=== PATIENT | female | born 1950 | race Caucasian/White ===

== ENCOUNTER 2016-12-24 20:53 | Emergency (ER) | payer MEDICARE, MEDICAID ==
[~2016-12-24] VITALS: Ht 162.6 cm; Wt 49.9 kg
[~2016-12-24 20:53] MED LIST: ATORVASTATIN CA10 MG ORAL; BENZTROPINE MESY1 MG PO; POTASSIUM CHLO20 ME3 PO; PROTONIX40 MG ORAL; VITAMIN C500 M1 ORAL; VITAMIN D400 INTLU ORAL
--- NOTE | 2016-12-24 21:15 | Emergency Room Report ---
History of Present Illness General Chief Complaint: Malfunctioning Gastric Tube Source: Medical Record, EMS Present Illness HPI Is a 66-year-old patient from detention with dementia. She has a feeding tube in that she pulled out. Onset today. A 14 Fijian Gallardo was placed to keep the stoma open. No other complaint. Denies any fever chills no nausea no vomiting. History is limited because of her dementia. Allergies: Coded Allergies: ERYTHROMYCIN BASE (Verified Allergy, Unknown, 11/12/16) Patient History Past Medical History: see triage record, old chart reviewed Past Surgical History: other Pertinent Family History: none Social History: Denies: smoking Last Menstrual Period: UKN Now: No Immunizations: other Reviewed Nursing Documentation: PMH: Agreed, PSxH: Agreed Nursing Documentation-PMH Past Medical History: No History, Except For Hx Cardiac Problems: Yes - Atherosclerotic heart disease, Anemia Hx Hypertension: Yes Hx COPD: Yes - Resp. failure Hx Diabetes: Yes - Type 2 Hx Cancer: No Hx Gastrointestinal Problems: No - Dysphagia, GERD Hx Neurological Problems: Yes - Generalized muscle weakness, Epilepsy Hx Epilepsy: Yes Review of Systems Eye: Denies: blurred vision, eye pain ENT: Denies: ear pain, nose congestion, throat swelling Respiratory: Denies: cough, shortness of breath Cardiovascular: Denies: chest pain, palpitations Gastrointestinal: Denies: abdominal pain, diarrhea, nausea, vomiting Musculoskeletal: Denies: back pain, joint pain Skin: Denies: rash Neurological: Denies: headache, numbness Endocrine: Denies: increased thirst, increased urine Hematologic/Lymphatic: Denies: easy bruising All Other Systems: negative except mentioned in HPI Physical Exam Vital Signs Date Time Temp Pulse Resp B/P Pulse Ox O2 Delivery O2 Flow Rate FiO2 12/24/16 20:56 97.3 68 14 100/57 98 Room Air vitals normal Sp02 EP Interpretation: reviewed, normal General Appearance: no apparent distress, alert, Chronically Ill Head: normocephalic, atraumatic Eyes: bilateral eye EOMI, bilateral eye PERRL ENT: hearing grossly normal, normal pharynx Neck: full range of motion, supple, no meningismus Respiratory: chest non-tender, lungs clear, normal breath sounds Cardiovascular #1: regular rate, rhythm, no murmur Gastrointestinal: normal bowel sounds, non tender, no mass, no organomegaly, no bruit, non-distended, other - Area around G-tube site show irritation. Musculoskeletal: back normal, normal range of motion Neurologic: alert Psychiatric: mood/affect normal Skin: warm/dry Procedures Additional Procedure Procedure Narrative Procedure: G-tube placement Indication: Dislodgment of G-tube Description: Under sterile condition, I placed an 18 Fijian G-tube without any difficulty. Was inflated. There was too feeding coming out already. It was secured and KUB ordered. Patient tolerated procedure without a problem. Medical Decision Making Diagnostic Impression: Primary Impression: Status post gastrostomy tube placement, follow-up exam Additional Impression: Malfunction of gastrostomy tube ER Course Patient here for G-tube placement. New tube placed without difficulty. No extravasation. We'll discharge home. Other X-Ray Diagnostic Results X-Ray ordered: KUB # of Views/Limited Vs Complete: 1 View Interpretation: no fractures, no dislocation, no soft tissue swelling Indication: Other - G-tube placement Impression: Other - No extravasation. G-tube in good position. Date Electronically Signed: Dec 24, 2016 Time Electronically Signed: 21:14 Interpreting ER Physician: Ciro Burnham MD Last Vital Signs Date Time Temp Pulse Resp B/P Pulse Ox O2 Delivery O2 Flow Rate FiO2 12/24/16 20:56 97.3 68 14 100/57 98 Room Air Status: improved Disposition: XFER SNF Condition: Stable Patient Instructions: Gastrostomy Tube Home Guide, Adult Additional Instructions: followup with your doctor as needed. Return for any concern. CIRO BURNHAM M.D. Dec 24, 2016 21:15
[2016-12-24 21:41] VITALS: BP 122/68
--- NOTE | 2016-12-25 10:07 | Diagnostic Imaging Report ---
Indication: Status post gastrostomy replacement Technique: Supine abdomen following injection of water-soluble contrast via the gastrostomy tube. Comparison: None Findings: There is opacification of the stomach confirming intraluminal positioning of the gastrostomy. No gross extravasation is identified. Impression: Opacification of the stomach confirming intraluminal positioning of the gastrostomy.
== END 2016-12-24 21:44 ==
LOC: EDUNIT# 20:53 → EDBD 20:53 → EMR 21:11
DX: Z43.1 Encounter for attention to gastrostomy (principal); F03.90 Unspecified dementia, unspecified severity, without behavioral disturbance, psychotic disturbance, mood disturbance, and anxiety; I10 Essential (primary) hypertension; E11.9 Type 2 diabetes mellitus without complications; K21.9 Gastro-esophageal reflux disease without esophagitis; G40.909 Epilepsy, unspecified, not intractable, without status epilepticus; I25.10 Atherosclerotic heart disease of native coronary artery without angina pectoris
CPT/HCPCS: 43760; 74000; 99284; Q9963

== ENCOUNTER 2016-12-26 15:31 | Emergency (ER) | payer MEDICARE, MEDICAID ==
[~2016-12-26] VITALS: Ht 162.6 cm; Wt 49.9 kg
--- NOTE | 2016-12-26 15:45 | Emergency Room Report ---
History of Present Illness General Chief Complaint: Malfunctioning Gastric Tube Source: Medical Record, EMS Present Illness HPI This [facility]. The patient presents with dislodgment of G-tube. She presents for replacement of G-tube. There are no other complaints Allergies: Coded Allergies: ERYTHROMYCIN BASE (Verified Allergy, Unknown, 11/12/16) Patient History Past Medical History: see triage record, DM, HTN, PA, CAD, COPD, CVA/TIA, dementia, psych hx Past Surgical History: other - Hx of trach/G-tube Social History: Denies: alcohol use, drug use, smoking Reviewed Nursing Documentation: PMH: Agreed, PSxH: Agreed Nursing Documentation-PMH Hx Cardiac Problems: Yes - Atherosclerotic heart disease, Anemia Hx Hypertension: Yes Hx COPD: Yes - Resp. failure Hx Diabetes: Yes - Type 2 Hx Cancer: No Hx Gastrointestinal Problems: No - Dysphagia, GERD Hx Neurological Problems: Yes - Generalized muscle weakness, Epilepsy Hx Epilepsy: Yes Review of Systems All Other Systems: negative except mentioned in HPI Physical Exam Vital Signs Date Time Temp Pulse Resp B/P Pulse Ox O2 Delivery O2 Flow Rate FiO2 12/26/16 15:35 98.1 70 18 118/76 99 Room Air Sp02 EP Interpretation: reviewed, normal General Appearance: no apparent distress, alert, GCS 15, non-toxic Head: normocephalic, atraumatic Eyes: bilateral eye PERRL, bilateral eye normal inspection ENT: hearing grossly normal, normal pharynx, no angioedema, normal voice Neck: full range of motion, supple/symm/no masses Respiratory: no respiratory distress, no retraction, no accessory muscle use, speaking full sentences Gastrointestinal: normal bowel sounds, non tender, soft, non-distended, no guarding, no rebound Rectal: deferred Musculoskeletal: normal range of motion, non-tender Neurologic: alert, responsive, motor strength/tone normal, sensory intact, speech normal Psychiatric: mood/affect normal Skin: well hydrated Medical Decision Making ER Course This patient presents for G-tube replacement. The G-tube was replaced in the typical manner without complication or incident. A KUB was obtained which showed Gastrografin consistent with appropriate placement in the stomach. The patient was returned to the prison facility. Other X-Ray Diagnostic Results X-Ray ordered: KUB w/ gastrograffin # of Views/Limited Vs Complete: 1 View Interpretation: other - Tube placement Indication: Other - G-tube replacement Impression: No acute disease - C/w w/ placment in stomach. No extravasation of contrast. Date Electronically Signed: Dec 26, 2016 Time Electronically Signed: 17:57 Interpreting ER Physician: Megan Last Vital Signs Date Time Temp Pulse Resp B/P Pulse Ox O2 Delivery O2 Flow Rate FiO2 12/26/16 15:35 98.1 70 18 118/76 99 Room Air Disposition: HOME, SELF-CARE Condition: Improved Patient Instructions: Gastrostomy Tube Home Guide, Adult ISAC ALVAREZ D.O. Dec 26, 2016 15:45
[2016-12-26 19:19] VITALS: BP 118/76
--- NOTE | 2016-12-27 10:48 | Diagnostic Imaging Report ---
Indication: Status post gastrostomy placement Technique: Supine view of the abdomen after injection of water-soluble contrast into gastrostomy Comparison: 12/24/2016 Findings: Contrast opacifies the stomach. No contrast extravasation is demonstrated. The bowel gas pattern is unremarkable. There is contrast in the colon, presumably from the previous gastrostomy injection. The balloon is now in the gastric fundus. No other significant change Impression: Satisfactory position of gastrostomy tube
== END 2016-12-26 19:25 | disposition home or self-care (01) ==
LOC: EDBD 15:31 → EMR 16:20
DX: Z43.1 Encounter for attention to gastrostomy (principal); E11.9 Type 2 diabetes mellitus without complications; I10 Essential (primary) hypertension; I25.10 Atherosclerotic heart disease of native coronary artery without angina pectoris; J44.9 Chronic obstructive pulmonary disease, unspecified; Z86.73 Personal history of transient ischemic attack (TIA), and cerebral infarction without residual deficits; F03.90 Unspecified dementia, unspecified severity, without behavioral disturbance, psychotic disturbance, mood disturbance, and anxiety
CPT/HCPCS: 43760; 74000

== ENCOUNTER 2020-06-09 17:44 | Inpatient (IN) | payer MEDICARE, MEDICAID ==
[~2020-06-09] VITALS: Ht 162.6 cm; Wt 36.7 kg
[~2020-06-09 17:44] MED LIST changes: +ATORVASTATIN CA10 MG GT; -ATORVASTATIN CA10 MG ORAL; +BENZTROPINE MESY1 MG GT; -BENZTROPINE MESY1 MG PO
[2020-06-09 18:00] VITALS: BP 118/65
[2020-06-09] MEDS ORDERED: Acetaminophen 500mg (ES) tab ORAL ONE (18:00)
[2020-06-09] MEDS ORDERED: Piperacillin/Tazobactam 3.375 GM in NS 110 ML IV ONE (18:00)
--- NOTE | 2020-06-09 18:11 | Emergency Room Report ---
History of Present Illness General Chief Complaint: Altered Level of Consciousness Source: Patient Present Illness HPI Disclaimer: Please note that this report is being documented using DRAGON technology. This can lead to erroneous entry secondary to incorrect interpretation by the dictating instrument. HPI: 69-year-old female history of CAD, CVA, dementia (normally AO x1), CHF, COPD, diabetes among others presents for evaluation of tachycardia and fever. Presents from nursing facility. 1 day of tachycardia and low-grade fevers not ed. No cough reported. Tested negative for COVID-19 by rapid test from samples taken on 05/20 as well as 05/25. Patient is G-tube dependent presumably for dysphagia. Does not have an indwelling Gallardo on arrival. Cannot obtain any information from patient due to dementia. PMH: CAD, CVA, dementia, CHF, COPD, diabetes PSH: G-tube, otherwise unable to obtain Allergies: Erythromycin found in medical chart Social Hx: Unable to obtain from patient Allergies: Coded Allergies: ERYTHROMYCIN BASE (Verified Allergy, Unknown, 11/12/16) COVID-19 Screening Contact w/high risk pt: No Experienced COVID-19 symptoms?: No COVID-19 Testing performed WIPER BLENDER: Yes - 05/29 COVID-19 Screening: Negative COVID-19 COVID-19 Testing Source: nasal Nursing Documentation-PMH Past Medical History: No History, Except For Hx Cardiac Problems: Yes - Atherosclerotic heart disease, Anemia Hx Hypertension: Yes Hx COPD: Yes - Resp. failure Hx Diabetes: Yes - Type 2 Hx Cancer: No Hx Gastrointestinal Problems: Yes Hx Neurological Problems: Yes - Generalized muscle weakness, Epilepsy Hx Epilepsy: Yes Review of Systems All Other Systems: limited - Unable to obtain from patient Physical Exam Vital Signs Date Time Temp Pulse Resp B/P (MAP) Pulse Ox O2 Delivery O2 Flow Rate FiO2 06/09/20 17:46 99.1 110 19 107/66 (80) 98 Nasal Cannula 6.0 General: Awake, moaning, disoriented and confused HEENT: NC/AT. EOMI. Cardiovascular: Tachycardic Resp: Normal work of breathing. No cough, wheezing or crackles appreciated Abdomen: Abdomen is soft, nondistended. G-tube appears in place and is clean and dry without signs of infection or trauma Skin: Wounds over the buttocks MSK: Frail appearing. No obvious deformity. Neuro: Awake but confused and disoriented. Moaning. No verbal responses otherwise Procedures Critical Care Time Critical Care Time Total critical care time: Approximately 45 minutes Due to a high probability of clinically significant, life threatening deterior ation, the patient required the highest level of preparedness to intervene emergently and I personally spent this critical care time directly and personally managing the patient. This critical care time included obtaining a history, examining the patient, pulse oximetry, ordering and reviewing studies, ordering treatments, evaluating response to treatment and updating management pl an as needed, frequent reassessment and discussion with other providers as well as arranging for ultimate disposition. This critical to care time was performed to assess and manage the high probability of life-threatening deterioration that could result in multiorgan failure. This critical care time is separate from the separately billable procedures and treating other patients. Medical Decision Making Diagnostic Impression: Primary Impression: Pneumonia Additional Impressions: Sepsis UTI (urinary tract infection) ER Course 69-year-old female presents from nursing facility for evaluation of fever and tachycardia. Concern for sepsis, pneumonia, electrolyte abnormality, dehydration, ACS among others. Patient started on broad-spectrum antibiotics and sepsis fluids at 30 cc/kg. Given Tylenol for fever. Broad labs and cultures ordered. Will require admission. Patient found to have bilateral infiltrates and was treated with Zosyn. Blood cultures are sent. White count elevated. D-dimer elevated; treated with Lovenox. Urine appears infections. Patient will be admitted to PMD, Dr. Abarca. Sepsis reevaluation: I, Dr. Camacho Barillas, reevaluated the patient Capillary refill: Less than 2 seconds MAP: 70 Heart rate: 113 Respiratory rate: 16 Initial Lactate: 5.6 Repeat Lactate: 5.2 Pressors: Not indicated at this time No signs of fluid overload Laboratory Tests Test 06/09/20 18:06 06/09/20 18:59 06/09/20 19:30 White Blood Count 21.5 K/UL (4.8-10.8) H Red Blood Count 4.88 M/UL (4.20-5.40) Hemoglobin 14.2 G/DL (12.0-16.0) Hematocrit 43.6 % (37.0-47.0) Mean Corpuscular Volume 89 FL (80-99) Mean Corpuscular Hemoglobin 29.1 PG (27.0-31.0) Mean Corpuscular Hemoglobin Concent 32.6 G/DL (32.0-36.0) Red Cell Distribution Width 14.3 % (11.6-14.8) Platelet Count 252 K/UL (150-450) Mean Platelet Volume 9.9 FL (6.5-10.1) Neutrophils (%) (Auto) 89.6 % (45.0-75.0) H Lymphocytes (%) (Auto) 5.3 % (20.0-45.0) L Monocytes (%) (Auto) 4.7 % (1.0-10.0) Eosinophils (%) (Auto) 0.0 % (0.0-3.0) Basophils (%) (Auto) 0.4 % (0.0-2.0) Prothrombin Time 12.4 SEC (9.30-11.50) H Prothrombin Time INR 1.1 (0.9-1.1) Activated Partial Thromboplast Time 28 SEC (23-33) D-Dimer 1.87 mg/L FEU (0.00-0.49) H Sodium Level 143 MMOL/L (136-145) Potassium Level 4.0 MMOL/L (3.5-5.1) Chloride Level 104 MMOL/L (98-107) Carbon Dioxide Level 29 MMOL/L (21-32) Anion Gap 10 mmol/L (5-15) Blood Urea Nitrogen 49 mg/dL (7-18) H Creatinine 1.1 MG/DL (0.55-1.30) Estimated Glomerular Filtration Rate 49.4 mL/min (>60) Glucose Level 164 MG/DL (74-106) H Lactic Acid Level 5.60 mmol/L (0.4-2.0) H Pending Calcium Level 9.0 MG/DL (8.5-10.1) Phosphorus Level 4.6 MG/DL (2.5-4.9) Magnesium Level 2.5 MG/DL (1.8-2.4) H Ferritin 505 NG/ML (8-388) H Total Bilirubin 0.4 MG/DL (0.2-1.0) Aspartate Amino Transferase (AST) 32 U/L (15-37) Alanine Aminotransferase (ALT) 55 U/L (12-78) Alkaline Phosphatase 105 U/L (46-116) Lactate Dehydrogenase 382 U/L (81-234) H Total Creatine Kinase 43 U/L (26-308) Creatine Kinase MB 0.8 NG/ML (0.0-3.6) Creatine Kinase MB Relative Index 1.8 Troponin I 0.000 ng/mL (0.000-0.056) C-Reactive Protein, Quantitative 17.7 mg/dL (0.00-0.90) H Pro-B-Type Natriuretic Peptide 967 pg/mL (0-125) H Total Protein 7.3 G/DL (6.4-8.2) Albumin 2.6 G/DL (3.4-5.0) L Globulin 4.7 g/dL Albumin/Globulin Ratio 0.6 (1.0-2.7) L Lipase 42 U/L (73-393) L Urine Color Yellow Urine Appearance Clear Urine pH 5 (4.5-8.0) Urine Specific [place] 1.020 (1.005-1.035) Urine Protein 4+ (NEGATIVE) H Urine Glucose (UA) Negative (NEGATIVE) Urine Ketones 1+ (NEGATIVE) H Urine Blood 2+ (NEGATIVE) H Urine Nitrite Negative (NEGATIVE) Urine Bilirubin Negative (NEGATIVE) Urine Urobilinogen 1 MG/DL (0.0-1.0) H Urine Leukocyte Esterase 2+ (NEGATIVE) H Urine RBC 5-10 /HPF (0 - 2) H Urine WBC 20-30 /HPF (0 - 2) H Urine Squamous Epithelial Cells Many /LPF (NONE/OCC) H Urine Bacteria Moderate /HPF (NONE) H EKG Diagnostic Results Troponin ordered: Yes When was troponin ordered?: Jun 09, 2020 EKG Time: 18:45 Rate: normal Rhythm: NSR ST Segments: no acute changes Other Impression Sinus rhythm, tachycardic rate, normal axis, normal intervals, no ST segment changes. Rhythm Strip Diag. Results Rhythm Strip Time: 18:45 EP Interpretation: yes Rate: 109 Rhythm: NSR, no PVC's, no ectopy Chest X-Ray Diagnostic Results Chest X-Ray Diagnostic Results : Chest X-Ray Ordered: Yes Indication: Shortness of Breath EP Interpretation: Yes Interpretation: no effusion, no pneumothorax, other - Bilateral consolidation consistent with pneumonia Impression: Other - Bilateral pneumonia Electronically Signed by: Electronically signed by Dr. Camacho Barillas MD Last Vital Signs Date Time Temp Pulse Resp B/P (MAP) Pulse Ox O2 Delivery O2 Flow Rate FiO2 06/09/20 17:46 99.1 110 19 107/66 (80) 98 Nasal Cannula 6.0 Disposition: ADMITTED INPATIENT Condition: Serious Camacho Barillas MD Jun 09, 2020 18:11
[2020-06-09 18:25] LABS: HEMATOCRIT 43.6 % (37.0-47.0); HEMOGLOBIN 14.2 G/DL (12.0-16.0); MEAN CORPUSCULAR VOLUME 89 FL (80-99); PLATELET COUNT 252 K/UL (150-450); RED BLOOD COUNT 4.88 M/UL (4.20-5.40); RED CELL DISTRIBUTION WIDTH 14.3 % (11.6-14.8); WHITE BLOOD COUNT 21.5 K/UL (4.8-10.8)
[2020-06-09 18:29] LABS: LYMPHOCYTES % (AUTO) 5.3 % (20.0-45.0); MONOCYTES % (AUTO) 4.7 % (1.0-10.0); NEUTROPHILS % (AUTO) 89.6 % (45.0-75.0)
[2020-06-09 18:30] LABS: BASOPHILS % (AUTO) 0.4 % (0.0-2.0)
[2020-06-09 18:32] LABS: INR 1.1 (0.9-1.1)
[2020-06-09 18:38] LABS: CREATININE 1.1 MG/DL (0.55-1.30)
[2020-06-09 18:57] LABS: ALBUMIN 2.6 G/DL (3.4-5.0); ALBUMIN/GLOBULIN RATIO 0.6 (1.0-2.7); BILIRUBIN,TOTAL 0.4 MG/DL (0.2-1.0); CKMB 0.8 NG/ML (0.0-3.6); PHOSPHORUS 4.6 MG/DL (2.5-4.9)
[2020-06-09 19:21] LABS: APPEARANCE,URINE CLEAR; BILIRUBIN, URINE NEGATIVE (NEGATIVE); GLUCOSE, URINE (UA) NEGATIVE (NEGATIVE); KETONES,URINE 1+ (NEGATIVE); LEUKOCYTE ESTERASE ,URINE 2+ (NEGATIVE); NITRITE,URINE NEGATIVE (NEGATIVE); PH,URINE 5 (4.5-8.0); PROTEIN,URINE 4+ (NEGATIVE); UROBILINOGEN,URINE 1 MG/DL (0.0-1.0)
[2020-06-09 19:22] LABS: COLOR,URINE YELLOW
[2020-06-09 20:36] VITALS: BP 93/51
[2020-06-09] MEDS ORDERED: Enoxaparin 40mg Inj SUBQ SCH (21:00)
[2020-06-09 22:33] VITALS: BP 103/59
[2020-06-09] MEDS ORDERED: ATORVASTATIN CA20 MG GT (23:19)
[2020-06-09] MEDS ORDERED: NOVOLIN R100 UNIT/1 SUBQ ×2 (23:19)
[2020-06-09] MEDS ORDERED: ABILIFY10 MG GT (23:19)
[2020-06-09] MEDS ORDERED: KEPPRA500 M4 ORAL (23:19)
[2020-06-09] MEDS ORDERED: CATAPRES0.1 MG GT (23:19)
[2020-06-10] VITALS: BP 100/49
[2020-06-10] MEDS: Piperacillin/Tazobactam 3.375 GM in NS 110 ML IVPB SCH ×3 (01:41→17:23)
[2020-06-10 04:00] VITALS: BP 116/61
[2020-06-10 06:12] LABS: HEMATOCRIT 32.9 % (37.0-47.0); HEMOGLOBIN 11.2 G/DL (12.0-16.0); MEAN CORPUSCULAR VOLUME 87 FL (80-99); PLATELET COUNT 188 K/UL (150-450); RED CELL DISTRIBUTION WIDTH 15.2 % (11.6-14.8); WHITE BLOOD COUNT 20.4 K/UL (4.8-10.8)
[2020-06-10] MEDS: NovoLOG Insulin Flexpen SUBQ SCH ×4 (06:30→21:00)
[2020-06-10 06:37] LABS: ANION GAP 8 mmol/L (5-15); BLOOD UREA NITROGEN 35 mg/dL (7-18); CALCIUM 8.8 MG/DL (8.5-10.1); CARBON DIOXIDE 27 MMOL/L (21-32); CHLORIDE 109 MMOL/L (98-107); CREATININE 0.8 MG/DL (0.55-1.30); POTASSIUM 3.6 MMOL/L (3.5-5.1); SODIUM 144 MMOL/L (136-145)
--- NOTE | 2020-06-10 07:59 | Consultation ---
History of Present Illness General Date patient seen: Jun 10, 2020 Time patient seen: 12:19 Chief Complaint: Altered Level of Consciousness Referring physician: PCP Reason for Consultation: Sepsis Present Illness HPI 69yo F who presents from SNF with tachycardia and fever. Per ED notes, tested neg for COVID by rapid test on 05/20 and 05/25. Pt has PEG, no valderrama. Dementia, non-verbal. History obtained via chart review. Allergies: Coded Allergies: ERYTHROMYCIN BASE (Verified Allergy, Unknown, 11/12/16) Medication History Scheduled Aripiprazole* (Abilify*), 5 MG GT DAILY, (Reported) Ascorbic Acid* (Vitamin C*), 500 MG ORAL DAILY, (Reported) Atorvastatin Calcium* (Lipitor*), 10 MG ORAL BEDTIME, (Reported) Atorvastatin Calcium* (Atorvastatin Calcium*), 10 MG GT BEDTIME, (Reported) Clonidine Hcl* (Catapres*), 0.1 MG GT Q8HR, (Reported) Insulin Regular, Human* (Novolin R*), 0 SUBQ .SLIDING SCALE, (Reported) Insulin Regular, Human* (Novolin R*), 0 SUBQ ACHS, (Reported) Levetiracetam (Keppra), 500 MG ORAL EVERY 12 HOURS, (Reported) Pantoprazole* (Protonix*), 40 MG ORAL DAILY, (Reported) Potassium Chloride (Potassium Chloride), 40 MEQ PO BID, (Reported) Vitamin D (Vitamin D3), 400 UNITS ORAL DAILY, (Reported) Miscellaneous Medications Benztropine Mesylate* (Benztropine Mesylate*), 1 MG PO, (Reported) Patient History Limited by: medical condition Healthcare decision maker N Resuscitation status Advanced Directive on File Review of Systems ROS Narrative Unable to assess 2/2 pt condition Physical Exam Physical Exam Narrative Gen: NAD HEENT: NCAT CV: RRR Pulm: CTAB Abd: Non-distended, +PEG Ext: No c/c/e Skin: No visible rashes Neuro: Eyes closed, not interactive Last 24 Hour Vital Signs Date Time Temp Pulse Resp B/P (MAP) Pulse Ox O2 Delivery O2 Flow Rate FiO2 06/10/20 06:00 122/66 06/10/20 04:00 85 06/10/20 04:00 98.4 85 19 116/61 (79) 98 06/10/20 00:00 83 06/10/20 00:00 97.7 87 17 100/49 (66) 100 06/09/20 23:42 Nasal Cannula 4.0 06/09/20 23:25 99.0 89 20 105/68 100 Nasal Cannula 4.0 06/09/20 22:33 99.0 89 19 103/59 100 Nasal Cannula 4.0 06/09/20 20:36 99.6 98 19 93/51 99 Nasal Cannula 4.0 06/09/20 18:47 99.6 06/09/20 18:00 127 21 Nasal Cannula 4.0 06/09/20 18:00 100.6 110 19 118/65 99 Nasal Cannula 4.0 06/09/20 17:46 99.1 110 19 107/66 (80) 98 Nasal Cannula 6.0 Intake and Output 06/09/20 06/10/20 19:00 07:00 Intake Total 110 ml 1750 ml Balance 110 ml 1750 ml Intake Free Water 150 ml IV Total 110 ml 1600 ml # Voids 3 Laboratory Tests Test 06/09/20 18:06 06/09/20 18:59 06/09/20 19:30 06/10/20 05:30 White Blood Count 21.5 K/UL (4.8-10.8) H 20.4 K/UL (4.8-10.8) H Red Blood Count 4.88 M/UL (4.20-5.40) 3.80 M/UL (4.20-5.40) L Hemoglobin 14.2 G/DL (12.0-16.0) 11.2 G/DL (12.0-16.0) L Hematocrit 43.6 % (37.0-47.0) 32.9 % (37.0-47.0) L Mean Corpuscular Volume 89 FL (80-99) 87 FL (80-99) Mean Corpuscular Hemoglobin 29.1 PG (27.0-31.0) 29.5 PG (27.0-31.0) Mean Corpuscular Hemoglobin Concent 32.6 G/DL (32.0-36.0) 34.0 G/DL (32.0-36.0) Red Cell Distribution Width 14.3 % (11.6-14.8) 15.2 % (11.6-14.8) H Platelet Count 252 K/UL (150-450) 188 K/UL (150-450) Mean Platelet Volume 9.9 FL (6.5-10.1) 10.2 FL (6.5-10.1) H Neutrophils (%) (Auto) 89.6 % (45.0-75.0) H % (45.0-75.0) Lymphocytes (%) (Auto) 5.3 % (20.0-45.0) L % (20.0-45.0) Monocytes (%) (Auto) 4.7 % (1.0-10.0) % (1.0-10.0) Eosinophils (%) (Auto) 0.0 % (0.0-3.0) % (0.0-3.0) Basophils (%) (Auto) 0.4 % (0.0-2.0) % (0.0-2.0) Prothrombin Time 12.4 SEC (9.30-11.50) H Prothromb Time International Ratio 1.1 (0.9-1.1) Activated Partial Thromboplast Time 28 SEC (23-33) D-Dimer 1.87 mg/L FEU (0.00-0.49) H Sodium Level 143 MMOL/L (136-145) 144 MMOL/L (136-145) Potassium Level 4.0 MMOL/L (3.5-5.1) 3.6 MMOL/L (3.5-5.1) Chloride Level 104 MMOL/L (98-107) 109 MMOL/L (98-107) H Carbon Dioxide Level 29 MMOL/L (21-32) 27 MMOL/L (21-32) Anion Gap 10 mmol/L (5-15) 8 mmol/L (5-15) Blood Urea Nitrogen 49 mg/dL (7-18) H 35 mg/dL (7-18) H Creatinine 1.1 MG/DL (0.55-1.30) 0.8 MG/DL (0.55-1.30) Estimat Glomerular Filtration Rate 49.4 mL/min (>60) > 60 mL/min (>60) Glucose Level 164 MG/DL (74-106) H 129 MG/DL (74-106) H Lactic Acid Level 5.60 mmol/L (0.4-2.0) H 5.20 mmol/L (0.66-2.22) H Calcium Level 9.0 MG/DL (8.5-10.1) 8.8 MG/DL (8.5-10.1) Phosphorus Level 4.6 MG/DL (2.5-4.9) Magnesium Level 2.5 MG/DL (1.8-2.4) H Ferritin 505 NG/ML (8-388) H Total Bilirubin 0.4 MG/DL (0.2-1.0) Aspartate Amino Transf (AST/SGOT) 32 U/L (15-37) Alanine Aminotransferase (ALT/SGPT) 55 U/L (12-78) Alkaline Phosphatase 105 U/L (46-116) Lactate Dehydrogenase 382 U/L (81-234) H Total Creatine Kinase 43 U/L (26-308) Creatine Kinase MB 0.8 NG/ML (0.0-3.6) Creatine Kinase MB Relative Index 1.8 Troponin I 0.000 ng/mL (0.000-0.056) C-Reactive Protein, Quantitative 17.7 mg/dL (0.00-0.90) H Pro-B-Type Natriuretic Peptide 967 pg/mL (0-125) H Total Protein 7.3 G/DL (6.4-8.2) Albumin 2.6 G/DL (3.4-5.0) L Globulin 4.7 g/dL Albumin/Globulin Ratio 0.6 (1.0-2.7) L Lipase 42 U/L (73-393) L Urine Color Yellow Urine Appearance Clear Urine pH 5 (4.5-8.0) Urine Specific [place] 1.020 (1.005-1.035) Urine Protein 4+ (NEGATIVE) H Urine Glucose (UA) Negative (NEGATIVE) Urine Ketones 1+ (NEGATIVE) H Urine Blood 2+ (NEGATIVE) H Urine Nitrite Negative (NEGATIVE) Urine Bilirubin Negative (NEGATIVE) Urine Urobilinogen 1 MG/DL (0.0-1.0) H Urine Leukocyte Esterase 2+ (NEGATIVE) H Urine RBC 5-10 /HPF (0 - 2) H Urine WBC 20-30 /HPF (0 - 2) H Urine Squamous Epithelial Cells Many /LPF (NONE/OCC) H Urine Bacteria Moderate /HPF (NONE) H Neutrophils % (Manual) Pending Lymphocytes % (Manual) Pending Platelet Estimate Pending Platelet Morphology Pending Test 06/10/20 06:34 POC Whole Blood Glucose 123 MG/DL (74-106) H Microbiology Date/Time Source Procedure Growth Status 06/09/20 19:25 Nasopharynx SARS-CoV-2 RdRp Gene Assay - Final Complete Height (Feet): 5 Height (Inches): 4.00 Weight (Pounds): 90 Medications Current Medications Medications (Trade) Dose Ordered Sig/Alvarado Route PRN Reason Start Time Stop Time Status Last Admin Dose Admin Ascorbic Acid (Vitamin C) 500 mg DAILY GT 06/10/20 09:00 07/10/20 08:59 Atorvastatin Calcium (Lipitor) 10 mg BEDTIME GT 06/10/20 21:00 09/08/20 20:59 Clonidine HCl (Catapres Tab) 0.1 mg Q8HR GT 06/10/20 06:00 09/08/20 05:59 Dextrose (Dextrose 50%) 25 ml Q30M PRN IV Hypoglycemia 06/10/20 01:15 09/08/20 01:14 Dextrose (Dextrose 50%) 50 ml Q30M PRN IV Hypoglycemia 06/10/20 01:15 09/08/20 01:14 Heparin Sodium (Porcine) (Heparin 5000 units/ml) 5,000 units EVERY 12 HOURS SUBQ 06/10/20 09:00 07/25/20 08:59 Insulin Aspart (NovoLOG) BEFORE MEALS AND HS SUBQ 06/10/20 06:30 09/08/20 06:29 Lansoprazole (Prevacid) 30 mg DAILY GT 06/10/20 09:00 07/10/20 08:59 Levetiracetam (Keppra) 500 mg EVERY 12 HOURS GT 06/10/20 09:00 07/25/20 08:59 Piperacillin Sod/ Tazobactam Sod 3.375 gm/Sodium Chloride 110 ml @ 27.5 mls/hr Q8H IVPB 06/10/20 02:00 06/17/20 01:59 06/10/20 01:41 Potassium Chloride (K-Dur) 40 meq BID GT 06/10/20 09:00 09/08/20 08:59 Sodium Chloride 1,000 ml @ 80 mls/hr [id number] IV 06/10/20 01:30 07/10/20 01:29 06/10/20 01:26 Vitamin D (Vitamin D) 400 intlu DAILY ORAL 06/10/20 09:00 07/10/20 08:59 Assessment/Plan Assessment/Plan: 69yo F with: Febrile to 100.6 Tachycardia Sepsis Leukocytosis to 21 Hypoxia on 4L NC Pneumonia R/o UTI 06/09 BCx p UA 20-30 WBC, UCx p COVID rapid Ag neg, PCR p BNP 967 CXR: Pending MRSA nares p Cr 0.8 PMH: CAD, CVA, dementia, CHF, COPD, diabetes SNF resident Plan: Cont Zosyn #2 Trend WBC F/u COVID PCR, BCx, UCx, MRSA nares Monitor CBC/CMP Monitor temp curve, hemodynamics Monitor resp status D/w RN Thank you for this consult. [facility] will continue to follow. Beth Marsh M.D. Jun 10, 2020 07:59
[2020-06-10 08:00] VITALS: BP 109/73
[2020-06-10] MEDS: levETIRAcetam 500mg/5ml Liquid GT SCH ×2 (09:45→21:03)
[2020-06-10] MEDS: Ascorbic Acid 500mg tab GT SCH (09:45)
[2020-06-10] MEDS: Heparin 5000 units/ml inj SUBQ SCH ×2 (09:46→21:03)
[2020-06-10] MEDS: Vitamin D 400 INTLU TAB ORAL SCH (09:48)
[2020-06-10 12:00] VITALS: BP 106/84
--- NOTE | 2020-06-10 13:06 | Diagnostic Imaging Report ---
Indication: Bilateral lower extremity pain Technique: Grayscale and duplex images of the bilateral lower extremity veins Comparison: None Findings: Bilaterally, grayscale and duplex images demonstrate no evidence of intraluminal thrombus. Normal phasic Doppler waveforms, demonstrating normal augmentation response and no evidence of valvular insufficiency. Greater saphenous vein(s) and tibial veins are patent. Normal compressibility. The technologist reports that the exam was technically difficult due to patient being contracted Impression: Negative for evidence of lower extremity deep venous thrombosis bilaterally
[2020-06-10 16:00] VITALS: BP 109/83
[2020-06-10] MEDS: Vancomycin 500mg/D5W 110ml IVPB SCH ×2 (17:23)
--- NOTE | 2020-06-10 18:43 | Consultation ---
History of Present Illness General Date patient seen: Jun 10, 2020 Reason for Hospitalization: Altered Level of Consciousness Present Illness HPI This is a pleasant 69-year-old female history of CAD, CVA, dementia baseline, CHF, COPD, diabetes among others presents for evaluation of tachycardia and fever from nursing facility. 1 day of tachycardia and low-grade fevers noted. No cough reported. Tested negative for COVID-19 by rapid test from samples taken on 05/20 as well as 05/25. Patient is G-tube dependent presumably for dysphagia. Does not have an indwelling Gallardo on arrival. Cannot obtain any information from patient due to dementia. noted abnormal labs, severe low bmi, decubitus. surgery called to evaluate and assist with care. PMH: CAD, CVA, dementia, CHF, COPD, diabetes PSH: G-tube, otherwise unable to obtain Allergies: Erythromycin found in medical chart Social Hx: Unable to obtain from patient Allergies: Coded Allergies: ERYTHROMYCIN BASE (Verified Allergy, Unknown, 11/12/16) COVID-19 Screening Contact w/high risk pt: No Experienced COVID-19 symptoms?: No Medication History Scheduled Aripiprazole* (Abilify*), 5 MG GT DAILY, (Reported) Ascorbic Acid* (Vitamin C*), 500 MG ORAL DAILY, (Reported) Atorvastatin Calcium* (Lipitor*), 10 MG ORAL BEDTIME, (Reported) Atorvastatin Calcium* (Atorvastatin Calcium*), 10 MG GT BEDTIME, (Reported) Clonidine Hcl* (Catapres*), 0.1 MG GT Q8HR, (Reported) Insulin Regular, Human* (Novolin R*), 0 SUBQ .SLIDING SCALE, (Reported) Insulin Regular, Human* (Novolin R*), 0 SUBQ ACHS, (Reported) Levetiracetam (Keppra), 500 MG ORAL EVERY 12 HOURS, (Reported) Pantoprazole* (Protonix*), 40 MG ORAL DAILY, (Reported) Potassium Chloride (Potassium Chloride), 40 MEQ PO BID, (Reported) Vitamin D (Vitamin D3), 400 UNITS ORAL DAILY, (Reported) Miscellaneous Medications Benztropine Mesylate* (Benztropine Mesylate*), 1 MG PO, (Reported) Patient History Limited by: age, medical condition History Provided By: Medical Record, PMD Healthcare decision maker N Resuscitation status Advanced Directive on File Past Medical/Surgical History Past Medical/Surgical History: (1) PEG (percutaneous endoscopic gastrostomy) adjustment/replacement/removal (2) UTI (urinary tract infection) (3) Pneumonia (4) Sepsis Review of Systems Review of Symptoms General ROS: no weight loss or fever Psychological ROS: no depression or mood changes, no memory loss Ophthalmic ROS: no visual changes or eye irritation ENT ROS: no nasal congestion, hearing loss, dizziness Allergy and Immunology ROS: no allergic symptoms or urticaria Hematological and Lymphatic ROS: no swollen glands, unusual bleeding or bruising Endocrine ROS: no polyuria, polydipsia, weight changes, temperature intolerance Respiratory ROS: no cough, shortness of breath, or wheezing Cardiovascular ROS: no chest pain or dyspnea on exertion Gastrointestinal ROS: denies abdominal pain, bright red blood in stool. Musculoskeletal ROS: no myalgias or arthralgias Neurological ROS: no TIA or stroke symptoms Dermatological ROS: no new or changing skin lesions, rashes or pruritis limited given mental status Physical Exam Physical Exam General appearance: no distress, appears stated age Head: Normocephalic, without obvious abnormality, atraumatic Eyes: conjunctivae/corneas clear. PERRL, EOM's intact. Fundi benign Throat: Lips, mucosa, and tongue normal. Teeth and gums normal Neck: supple, symmetrical, trachea midline, no adenopathy, thyroid: not enlarged, symmetric, no tenderness/mass/nodules, no carotid bruit and no JVD Lungs: clear to auscultation bilaterally Heart: regular rate and rhythm, S1, S2 normal, no murmur, click, rub or gallop Abdomen: soft, non-tender. Bowel sounds normal. No masses, no organomegaly +G tube Extremities: extremitie contract Pulses: 2+ and symmetric Skin: Skin see below Neurologic: Grossly normal Last 24 Hour Vital Signs Date Time Temp Pulse Resp B/P (MAP) Pulse Ox O2 Delivery O2 Flow Rate FiO2 06/10/20 16:00 99.7 93 18 109/83 (92) 96 06/10/20 14:00 106/84 06/10/20 12:00 97.4 90 19 106/84 (91) 97 06/10/20 12:00 91 06/10/20 09:00 Nasal Cannula 4.0 06/10/20 08:00 98.1 56 18 109/73 (85) 94 06/10/20 08:00 90 06/10/20 06:00 122/66 06/10/20 04:00 85 06/10/20 04:00 98.4 85 19 116/61 (79) 98 06/10/20 00:00 83 06/10/20 00:00 97.7 87 17 100/49 (66) 100 06/09/20 23:42 Nasal Cannula 4.0 06/09/20 23:25 99.0 89 20 105/68 100 Nasal Cannula 4.0 06/09/20 22:33 99.0 89 19 103/59 100 Nasal Cannula 4.0 06/09/20 20:36 99.6 98 19 93/51 99 Nasal Cannula 4.0 06/09/20 18:47 99.6 Intake and Output 06/09/20 06/10/20 19:00 07:00 Intake Total 110 ml 1750 ml Balance 110 ml 1750 ml Intake Free Water 150 ml IV Total 110 ml 1600 ml # Voids 3 Laboratory Tests Test 06/09/20 18:59 06/09/20 19:30 06/10/20 05:30 06/10/20 06:34 Urine Color Yellow Urine Appearance Clear Urine pH 5 (4.5-8.0) Urine Specific [place] 1.020 (1.005-1.035) Urine Protein 4+ (NEGATIVE) H Urine Glucose (UA) Negative (NEGATIVE) Urine Ketones 1+ (NEGATIVE) H Urine Blood 2+ (NEGATIVE) H Urine Nitrite Negative (NEGATIVE) Urine Bilirubin Negative (NEGATIVE) Urine Urobilinogen 1 MG/DL (0.0-1.0) H Urine Leukocyte Esterase 2+ (NEGATIVE) H Urine RBC 5-10 /HPF (0 - 2) H Urine WBC 20-30 /HPF (0 - 2) H Urine Squamous Epithelial Cells Many /LPF (NONE/OCC) H Urine Bacteria Moderate /HPF (NONE) H Lactic Acid Level 5.20 mmol/L (0.66-2.22) H White Blood Count 20.4 K/UL (4.8-10.8) H Red Blood Count 3.80 M/UL (4.20-5.40) L Hemoglobin 11.2 G/DL (12.0-16.0) L Hematocrit 32.9 % (37.0-47.0) L Mean Corpuscular Volume 87 FL (80-99) Mean Corpuscular Hemoglobin 29.5 PG (27.0-31.0) Mean Corpuscular Hemoglobin Concent 34.0 G/DL (32.0-36.0) Red Cell Distribution Width 15.2 % (11.6-14.8) H Platelet Count 188 K/UL (150-450) Mean Platelet Volume 10.2 FL (6.5-10.1) H Neutrophils (%) (Auto) % (45.0-75.0) Lymphocytes (%) (Auto) % (20.0-45.0) Monocytes (%) (Auto) % (1.0-10.0) Eosinophils (%) (Auto) % (0.0-3.0) Basophils (%) (Auto) % (0.0-2.0) Differential Total Cells Counted 100 Neutrophils % (Manual) 85 % (45-75) H Lymphocytes % (Manual) 9 % (20-45) L Monocytes % (Manual) 6 % (1-10) Eosinophils % (Manual) 0 % (0-3) Basophils % (Manual) 0 % (0-2) Band Neutrophils 0 % (0-8) Platelet Estimate Adequate Platelet Morphology Normal Anisocytosis 1+ Sodium Level 144 MMOL/L (136-145) Potassium Level 3.6 MMOL/L (3.5-5.1) Chloride Level 109 MMOL/L (98-107) H Carbon Dioxide Level 27 MMOL/L (21-32) Anion Gap 8 mmol/L (5-15) Blood Urea Nitrogen 35 mg/dL (7-18) H Creatinine 0.8 MG/DL (0.55-1.30) Estimat Glomerular Filtration Rate > 60 mL/min (>60) Glucose Level 129 MG/DL (74-106) H Calcium Level 8.8 MG/DL (8.5-10.1) POC Whole Blood Glucose 123 MG/DL (74-106) H Test 06/10/20 11:48 POC Whole Blood Glucose 106 MG/DL (74-106) Microbiology Date/Time Source Procedure Growth Status 06/09/20 19:25 Nasopharynx SARS-CoV-2 RdRp Gene Assay - Final Complete Height (Feet): 5 Height (Inches): 4.00 Weight (Pounds): 90 Medications Current Medications Medications (Trade) Dose Ordered Sig/Alvarado Route PRN Reason Start Time Stop Time Status Last Admin Dose Admin Ascorbic Acid (Vitamin C) 500 mg DAILY GT 06/10/20 09:00 07/10/20 08:59 06/10/20 09:45 Atorvastatin Calcium (Lipitor) 10 mg BEDTIME GT 06/10/20 21:00 09/08/20 20:59 Clonidine HCl (Catapres Tab) 0.1 mg Q8HR GT 06/10/20 06:00 09/08/20 05:59 Dextrose (Dextrose 50%) 25 ml Q30M PRN IV Hypoglycemia 06/10/20 01:15 09/08/20 01:14 Dextrose (Dextrose 50%) 50 ml Q30M PRN IV Hypoglycemia 06/10/20 01:15 09/08/20 01:14 Heparin Sodium (Porcine) (Heparin 5000 units/ml) 5,000 units EVERY 12 HOURS SUBQ 06/10/20 09:00 07/25/20 08:59 06/10/20 09:46 Insulin Aspart (NovoLOG) BEFORE MEALS AND HS SUBQ 06/10/20 06:30 09/08/20 06:29 Lansoprazole (Prevacid) 30 mg DAILY GT 06/10/20 09:00 07/10/20 08:59 06/10/20 09:45 Levetiracetam (Keppra) 500 mg EVERY 12 HOURS GT 06/10/20 09:00 07/25/20 08:59 06/10/20 09:45 Piperacillin Sod/ Tazobactam Sod 3.375 gm/Sodium Chloride 110 ml @ 27.5 mls/hr Q8H IVPB 06/10/20 02:00 06/17/20 01:59 06/10/20 17:23 Potassium Chloride (K-Dur) 40 meq BID GT 06/10/20 09:00 09/08/20 08:59 06/10/20 17:24 Sodium Chloride 1,000 ml @ 80 mls/hr [id number] IV 06/10/20 01:30 07/10/20 01:29 06/10/20 14:03 Vancomycin HCl (Vanco pharmacy to dose) 1 ea DAILY PRN MISC Per rx protocol 06/10/20 16:00 07/10/20 15:59 Vancomycin HCl 500 mg/Dextrose 110 ml @ 110 mls/hr Q24H IVPB 06/10/20 18:00 06/15/20 17:59 06/10/20 17:23 Vitamin D (Vitamin D) 400 intlu DAILY ORAL 06/10/20 09:00 07/10/20 08:59 06/10/20 09:48 Assessment/Plan Problem List: (1) Malnutrition Assessment & Plan: Needs based on underweight, DM 35.5kg 30-40 kcals/kg 3654-9170 total kcals 1.25-2 g protein/kg 44-71 g total protein 25-35ml/kcal mL/kg 888-1243 total fluid mLs NUTRITION DIAGNOSIS: Swallowing difficulty R/T dysphagia as evidenced by pt is Gtube dependent. ENTERAL NUTRITION RECOMMENDATIONS: Glucerna 1.2 @50ml x24 hrs to provide 1200ml, 1440 kcal, 72g pro, 966ml free H2O - As able rec carb control formula for h/o DM. - Start @30ml/hr for 6 hrs, advance as tolerated 10ml/hr q4-6 hrs to goal. - Flush per MD/ HOB over 30 degrees ADDITIONAL RECOMMENDATIONS: - Per SNF: 5'3" and 78lbs/35.45kg. - Check lytes daily, replete as needed - A1c for eval of glycemic control - Wound care: advanced per RN, f/up with WC RN. Add LINA BID w/ GT, Vit C 250mg BID ICD Codes: E46 - Unspecified protein-calorie malnutrition SNOMED: 14731023 (2) Decubitus skin ulcer Assessment & Plan: This is an emaciated pt whom presented on admission with Multiple Pressure Injuries. Unstageable Pressure Injury Sacrum (L)11cm x (W)10.5cm. Base of wound is 90% necrotic, surrounding 10% moist, erythematous borders. Edges adherent to base of wound. No odor or exudate noted. Unstageable Pressure Injury L trochanter(L)3.5cm x (W)5.5cm. Base of wound is 95% necrotic, 5% surrounding borders arleen. Edges adherent to base of wound. No odor or exudate noted.Periwound is pale. Non-Blanchable erythema without induration L Ischium. Non-Blanchable erythema without induration bony prominences of L Hip/L Trochanter/L Ischial tuberosity. DTPI L Heel(L)2.5cmx(W)2cm.Base of Pressure Injury is fluctuant, Maroon in colour with surrounding non-blanchable erythema. Non-Blanchable erythema without induration L Hallux (L)1cm x (W)2cm. DTPI R Heel (L)6cm x (W)8cm.Base of Pressure Injury is fluctuant and maroon in colour. Edges are adherent to base of Pressure Injury. Unstageable Pressure Injury dorsal R 1st metatarsal(L)0.8cm x (W)0.6cm.Base of wound is 100% necrotic with marginal erythema along borders . Edges adherent to base of wound.. Non-Blanchable erythema without induration distal/lateral R foot (L)1.5cm x (W)1.5cm. Non-Blanchable erythema without induration R Hallux. Tx.Plan: Cleanse Sacral wound with Saline. Apply Therahoney. Apply Moisture Barrier Paste periwound. Cover with Optifoam drsg. Change every 3 days and prn. Cleanse L Trochanteric wound with Saline.Apply Therhaoney.Apply Moisture Barrier paste Periwound. Cover with Optifoam drsg. Change every 3 days and prn. Apply Moisture Barrier Paste to R and L ischium. Cover each site with Optifoam drsg. Change every 3 days and prn. Cover R hip /R Trochanter with Optifoam drsgs. Change every 7 days and prn. Apply Cavilon Skin Barrier to R heel , R 1st metatarsal,R hallux, Distal /Lateral R foot. Cover each Pressure Injury with Optifoam drsg. Change every 7 days and prn. Apply Cavilon Skin Barrier o L Heel , L Hallux, Distal lateral L Foot . Cover each Pressure Injury with Optifoam drsg. Change every 7 days and prn. Reposition at least every 2hours or as tolerated. Off-load heels with Pillow. APM/SOLOMON Mattress Overlay. ICD Codes: L89.90 - Pressure ulcer of unspecified site, unspecified stage SNOMED: 901098325 (3) UTI (urinary tract infection) ICD Codes: N39.0 - Urinary tract infection, site not specified SNOMED: 64561454 (4) Pneumonia ICD Codes: J18.9 - Pneumonia, unspecified organism SNOMED: 273656376 (5) Sepsis Assessment & Plan: leukocytosis lactic acidosis malnutrition underweight bmi 13 micro noted on abx as per ID cont abx wounds unlikely etiology will follow with local care and evaluation to ensure thank you ICD Codes: A41.9 - Sepsis, unspecified organism SNOMED: 57956811 (6) PEG (percutaneous endoscopic gastrostomy) adjustment/replacement/removal ICD Codes: Z43.1 - Encounter for attention to gastrostomy SNOMED: 730774095, 796033198 Chao Ovalle Jun 10, 2020 18:43
--- NOTE | 2020-06-10 18:53 | Diagnostic Imaging Report ---
Indication: Shortness of breath, cough Technique: One view of the chest Comparison: 11/15/2016 Findings: There is infiltrate versus ill-defined mass at the left lung base. There are calcifications of the left lung base. Lungs are somewhat hyperinflated. Heart size is normal. The right lung and bilateral pleural spaces are clear. Impression: Left basilar infiltrate versus mass. Recommend follow-up radiograph to resolution
[2020-06-10 20:00] VITALS: BP 117/72
[2020-06-11] VITALS: BP 143/68
[2020-06-11] MEDS: Piperacillin/Tazobactam 3.375 GM in NS 110 ML IVPB SCH ×3 (02:32→17:25)
[2020-06-11 04:00] VITALS: BP 121/49
[2020-06-11] MEDS: NovoLOG Insulin Flexpen SUBQ SCH ×4 (05:49→21:00)
[2020-06-11 07:19] LABS: HEMOGLOBIN 9.7 G/DL (12.0-16.0); MEAN CORPUSCULAR VOLUME 85 FL (80-99); PLATELET COUNT 192 K/UL (150-450); RED BLOOD COUNT 3.31 M/UL (4.20-5.40); RED CELL DISTRIBUTION WIDTH 15.2 % (11.6-14.8); WHITE BLOOD COUNT 19.3 K/UL (4.8-10.8)
[2020-06-11 07:27] LABS: INR 1.1 (0.9-1.1)
[2020-06-11 07:53] LABS: ALANINE AMINOTRANSFERASE 30 U/L (12-78); ALBUMIN 1.8 G/DL (3.4-5.0); ALBUMIN/GLOBULIN RATIO 0.4 (1.0-2.7); ALKALINE PHOSPHATASE 91 U/L (46-116); AMYLASE 62 U/L (25-115); ANION GAP 5 mmol/L (5-15); ASPARTATE AMINO TRANSFERASE 20 U/L (15-37); BILIRUBIN,TOTAL 0.2 MG/DL (0.2-1.0); BLOOD UREA NITROGEN 15 mg/dL (7-18); CALCIUM 8.1 MG/DL (8.5-10.1); CARBON DIOXIDE 28 MMOL/L (21-32); CHLORIDE 110 MMOL/L (98-107); CREATININE 0.5 MG/DL (0.55-1.30); POTASSIUM 3.1 MMOL/L (3.5-5.1); SODIUM 143 MMOL/L (136-145)
--- NOTE | 2020-06-11 07:56 | Infectious Diseases Prog Note ---
Assessment/Plan 69yo F with: Febrile to 100.6 Tachycardia Sepsis Leukocytosis to 21 Hypoxia on 4L NC Pneumonia, L basilar infiltrate vs mass GPC bacteremia R/o UTI 06/09 BCx +GPCs UA 20-30 WBC, UCx +GNRs COVID rapid Ag neg, PCR neg BNP 967 CXR: L basilar infiltrate vs mass MRSA nares p Cr 0.8 PMH: CAD, CVA, dementia, CHF, COPD, diabetes SNF resident Plan: Cont vanco IV #2 Cont Zosyn #3 Repeat BCx this morning F/u BCx +GPCs F/u UCx, MRSA nares Trend WBC Monitor CBC/CMP Monitor temp curve, hemodynamics Monitor resp status D/w RN Thank you for this consult. [facility] will continue to follow. Subjective Allergies: Coded Allergies: ERYTHROMYCIN BASE (Verified Allergy, Unknown, 11/12/16) Tmax 99.7 BCx from admission w/ GPCs WBC 19, improving NAD in bed on NC Objective Last 24 Hour Vital Signs Date Time Temp Pulse Resp B/P (MAP) Pulse Ox O2 Delivery O2 Flow Rate FiO2 06/11/20 04:00 98.1 89 20 121/49 (73) 96 06/11/20 04:00 87 06/11/20 00:00 98.4 89 20 143/68 (93) 97 06/11/20 00:00 90 06/10/20 21:00 Nasal Cannula 4.0 06/10/20 20:00 83 06/10/20 20:00 98.2 83 20 117/72 (87) 96 06/10/20 16:00 82 06/10/20 16:00 99.7 93 18 109/83 (92) 96 06/10/20 14:00 106/84 06/10/20 12:00 97.4 90 19 106/84 (91) 97 06/10/20 12:00 91 06/10/20 09:00 Nasal Cannula 4.0 06/10/20 08:00 98.1 56 18 109/73 (85) 94 06/10/20 08:00 90 Height (Feet): 5 Height (Inches): 4.00 Weight (Pounds): 90 Gen: NAD in bed HEENT: NCAT CV: RRR Pulm: CTAB Abd: Soft, NTND, +PEG Ext: No c/c/e Neuro: Not interactive Lines: PIVs only Microbiology Date/Time Source Procedure Growth Status 06/09/20 19:25 Nasopharynx SARS-CoV-2 RdRp Gene Assay - Final Complete 06/09/20 18:06 Nasopharynx Coronavirus COVID-19 PCR (DAIN) - Final Complete 06/09/20 18:06 Blood Blood Culture - Preliminary Resulted 06/09/20 17:50 Blood Blood Culture - Preliminary Resulted Laboratory Tests Test 06/10/20 11:48 06/10/20 21:09 06/11/20 05:47 06/11/20 06:00 POC Whole Blood Glucose 106 MG/DL (74-106) Pending 136 MG/DL (74-106) H White Blood Count 19.3 K/UL (4.8-10.8) H Red Blood Count 3.31 M/UL (4.20-5.40) L Hemoglobin 9.7 G/DL (12.0-16.0) L Hematocrit 28.0 % (37.0-47.0) L Mean Corpuscular Volume 85 FL (80-99) Mean Corpuscular Hemoglobin 29.5 PG (27.0-31.0) Mean Corpuscular Hemoglobin Concent 34.8 G/DL (32.0-36.0) Red Cell Distribution Width 15.2 % (11.6-14.8) H Platelet Count 192 K/UL (150-450) Mean Platelet Volume 9.6 FL (6.5-10.1) Neutrophils (%) (Auto) % (45.0-75.0) Lymphocytes (%) (Auto) % (20.0-45.0) Monocytes (%) (Auto) % (1.0-10.0) Eosinophils (%) (Auto) % (0.0-3.0) Basophils (%) (Auto) % (0.0-2.0) Neutrophils % (Manual) Pending Lymphocytes % (Manual) Pending Platelet Estimate Pending Platelet Morphology Pending Erythrocyte Sedimentation Rate Pending Prothrombin Time 12.0 SEC (9.30-11.50) H Prothromb Time International Ratio 1.1 (0.9-1.1) Activated Partial Thromboplast Time 28 SEC (23-33) Sodium Level Pending Potassium Level Pending Chloride Level Pending Carbon Dioxide Level Pending Blood Urea Nitrogen Pending Creatinine Pending Estimat Glomerular Filtration Rate Pending Glucose Level Pending Lactic Acid Level 0.80 mmol/L (0.4-2.0) Calcium Level Pending Total Bilirubin Pending Aspartate Amino Transf (AST/SGOT) Pending Alanine Aminotransferase (ALT/SGPT) Pending Alkaline Phosphatase Pending C-Reactive Protein, Quantitative Pending Total Protein Pending Albumin Pending Globulin Pending Amylase Level Pending Lipase Pending Current Medications Medications (Trade) Dose Ordered Sig/Alvarado Route PRN Reason Start Time Stop Time Status Last Admin Dose Admin Ascorbic Acid (Vitamin C) 500 mg DAILY GT 06/10/20 09:00 07/10/20 08:59 06/10/20 09:45 Atorvastatin Calcium (Lipitor) 10 mg BEDTIME GT 06/10/20 21:00 09/08/20 20:59 06/10/20 21:03 Dextrose (Dextrose 50%) 25 ml Q30M PRN IV Hypoglycemia 06/10/20 01:15 09/08/20 01:14 Dextrose (Dextrose 50%) 50 ml Q30M PRN IV Hypoglycemia 06/10/20 01:15 09/08/20 01:14 Heparin Sodium (Porcine) (Heparin 5000 units/ml) 5,000 units EVERY 12 HOURS SUBQ 06/10/20 09:00 07/25/20 08:59 06/10/20 21:03 Insulin Aspart (NovoLOG) BEFORE MEALS AND HS SUBQ 06/10/20 06:30 09/08/20 06:29 Lansoprazole (Prevacid) 30 mg DAILY GT 06/10/20 09:00 07/10/20 08:59 06/10/20 09:45 Levetiracetam (Keppra) 500 mg EVERY 12 HOURS GT 06/10/20 09:00 07/25/20 08:59 06/10/20 21:03 Piperacillin Sod/ Tazobactam Sod 3.375 gm/Sodium Chloride 110 ml @ 27.5 mls/hr Q8H IVPB 06/10/20 02:00 06/17/20 01:59 06/11/20 02:32 Potassium Chloride (K-Dur) 40 meq BID GT 06/10/20 09:00 09/08/20 08:59 06/10/20 17:24 Sodium Chloride 1,000 ml @ 80 mls/hr [id number] IV 06/10/20 01:30 07/10/20 01:29 06/11/20 02:33 Vancomycin HCl (Vanco pharmacy to dose) 1 ea DAILY PRN MISC Per rx protocol 06/10/20 16:00 07/10/20 15:59 Vancomycin HCl 500 mg/Dextrose 110 ml @ 110 mls/hr Q24H IVPB 06/10/20 18:00 06/15/20 17:59 06/10/20 17:23 Vitamin D (Vitamin D) 400 intlu DAILY ORAL 06/10/20 09:00 07/10/20 08:59 06/10/20 09:48 Beth Marsh M.D. Jun 11, 2020 07:56
[2020-06-11 08:00] VITALS: BP 112/63
--- NOTE | 2020-06-11 08:15 | History and Physical Report ---
DATE OF ADMISSION: 06/09/2020 HISTORY OF PRESENT ILLNESS: This is the first admission to [facility] for this 69-year-old patient because of what appeared to be aspiration pneumonia, sepsis, and altered mental status. HISTORY OF PRESENT ILLNESS: The patient is a resident of an extended care facility where she has been in stable condition for the last several years. She is known to have several chronic medical syndrome that would be detailed in the following paragraph, but has been stable on medication. She initially vascular dementia. Over the last several months, she has progressively lost weight, for which she was admitted to [facility] and underwent gastrostomy. The patient was awake, alert, and traveling with a wheelchair around the facility. On the day of admission, the patient suddenly developed low-grade fever, tachycardia, severe shortness of breath, and altered mental status. She was transferred to [facility] and was admitted. PAST MEDICAL HISTORY: Several years ago, the patient had cerebrovascular accident, following which she had complete resolution of neurological deficits. Additionally, she is known to have high blood pressure, congestive heart failure, which is compensated and stage II by [place] [employer] classification. She has type 2 diabetes mellitus and significant weight loss in the last several months that is more than 10 pounds of total weight. ALLERGIES: No known drug allergy. MEDICATIONS: The patient is on atorvastatin 10 mg daily, vitamin D 5000 international units capsule daily, 30 mg daily, levetiracetam 500 mg via G-tube q.12h., vitamin C 500 mg daily, heparin 5000 units subcutaneously q.12h. FAMILY HISTORY: Noncontributory. No medical interventions in the patient for the last several years for her medical condition. HABITS: The patient does not smoke, drink, or use illicit drugs. REVIEW OF SYSTEMS: The patient is unable to give any information regarding her state of health. PHYSICAL EXAMINATION: VITAL SIGNS: Blood pressure is 122/66, pulse is 56, respirations are 18, temperature 98.1. HEENT: Eyes were normal. Pupils were round, equal, and reactive to light. Sclerae were white. Conjunctivae were pink. Extraocular movements could not be assessed. Temporal arteries were palpable bilaterally. There was no bilateral temporal wasting. Visual field to confrontation, neglect sign could not be assessed. ENT, mucous membranes were slightly dehydrated. Auditory canals were clear and tympanic membranes could not be visualized. The nasal cavity was not congested. Nasal septum was intact. Soft palate was free of ulceration. Pharynx, uvula, and tongue could not be visualized. Tongue on brief inspection appeared midline and normally papillated. NECK: Supple. There was no goiter. No mass. No lymphadenopathy. There was no JVD. No bruits. Carotid upstroke was 2+. LUNGS: There was bilateral rhonchi in both bases. HEART: PMI was at the fifth left intercostal space, midclavicular line. There was normal S1 and normal S2. There was no murmur. No arrhythmia. No S3. No S4. No pericardial rub. ABDOMEN: Soft, flat, nontender without organomegaly. There were no masses palpable. Normal bowel sounds without bruit. There was no guarding. No rebound tenderness. No ascites. No hernia. No CVA tenderness. Liver span was 8 cm, mostly nontender. Gastrostomy site was clean. EXTREMITIES: Warm without cyanosis, clubbing, or edema. CHEST WALL: Appeared without any subcutaneous tissue and her ribs were hardly visible. NEUROLOGIC: Reflexes in biceps, triceps, and brachioradialis were present. Patellar retinaculum extension on the right, flexion on the left. Cranial nerves II to XII were symmetric and equal. Cerebellar function, there was no tremor. No nystagmus. No extrapyramidal rigidity. Sensory exam to pinprick, cotton touch, position, and motor strength could not be assessed because of the patient's clinical status. LABORATORY AND DIAGNOSTIC DATA: Hemoglobin is 11.2, hematocrit 32.9 with MCV of 87, WBC of 20.4, and platelets are 188. Her BUN and creatinine is 35 and 0.8 respectively. Her sodium is 144, potassium 3.6, chloride 109, CO2 is 27. Capillary blood sugar was 123 to 106. Her lactic acid on admission was 5.6 and calcium was 8.8. INR was 1.1 and PTT was 28, and D-dimer, however, was 1.87. Urinalysis showed 20-30 wbc's per high power field. She had 4+ protein, 1+ ketones. She was negative for nitrite and 2+ leukocyte esterase. SARS2 COVID-19 rapid test was negative. The PCR test was sent out. Blood culture after 24 hours showed gram-positive cocci in clusters. Venous duplex scan was negative. Her chest x-ray showed left lower lobe infiltrate with possible mass. The patient was given IV normal saline at 100 mL/hour. She was placed on vancomycin 1 g IV piggyback q.24h. and piperacillin and tazobactam 3.375 g IV piggyback q.8h. Infectious disease hearing aid consultant and general residential property consultant were called to assist in management of this case . Repeat laboratory tests will be done in the a.m. Gale Abarca M.D. DR: KUSHAL JOB#: [id number] CC:
[2020-06-11] MEDS: Ascorbic Acid 500mg tab GT SCH (09:17)
[2020-06-11] MEDS: Vitamin D 400 INTLU TAB ORAL SCH (09:17)
[2020-06-11] MEDS: levETIRAcetam 500mg/5ml Liquid GT SCH ×2 (09:18→21:52)
[2020-06-11] MEDS: Heparin 5000 units/ml inj SUBQ SCH ×2 (09:19→21:53)
[2020-06-11 12:00] VITALS: BP 114/71
--- NOTE | 2020-06-11 12:39 | Surgery Progress Note ---
Surgery Progress Note Subjective Additional Comments no acute events comfortable stable no n/v Objective Last 24 Hour Vital Signs Date Time Temp Pulse Resp B/P (MAP) Pulse Ox O2 Delivery O2 Flow Rate FiO2 06/11/20 12:00 74 06/11/20 09:00 Nasal Cannula 4.0 06/11/20 08:00 80 06/11/20 08:00 96.5 81 20 112/63 (79) 99 06/11/20 04:00 98.1 89 20 121/49 (73) 96 06/11/20 04:00 87 06/11/20 00:00 98.4 89 20 143/68 (93) 97 06/11/20 00:00 90 06/10/20 21:00 Nasal Cannula 4.0 06/10/20 20:00 83 06/10/20 20:00 98.2 83 20 117/72 (87) 96 06/10/20 16:00 82 06/10/20 16:00 99.7 93 18 109/83 (92) 96 06/10/20 14:00 106/84 I&O Intake and Output 06/10/20 06/11/20 19:00 07:00 Intake Total 80 ml 150 ml Output Total 250 ml Balance -170 ml 150 ml Intake Free Water 50 ml 100 ml Tube Feeding 30 ml 50 ml Output Urine Total 250 ml # Voids 2 # Bowel Movements 1 Dressing: dry Wound: clean Cardiovascular: RSR Respiratory: clear Abdomen: soft, non-tender, present bowel sounds Extremities: no edema, no tenderness, no cyanosis Laboratory Tests Test 06/10/20 21:09 06/11/20 05:47 06/11/20 06:00 POC Whole Blood Glucose Pending 136 MG/DL (74-106) H White Blood Count 19.3 K/UL (4.8-10.8) H Red Blood Count 3.31 M/UL (4.20-5.40) L Hemoglobin 9.7 G/DL (12.0-16.0) L Hematocrit 28.0 % (37.0-47.0) L Mean Corpuscular Volume 85 FL (80-99) Mean Corpuscular Hemoglobin 29.5 PG (27.0-31.0) Mean Corpuscular Hemoglobin Concent 34.8 G/DL (32.0-36.0) Red Cell Distribution Width 15.2 % (11.6-14.8) H Platelet Count 192 K/UL (150-450) Mean Platelet Volume 9.6 FL (6.5-10.1) Neutrophils (%) (Auto) % (45.0-75.0) Lymphocytes (%) (Auto) % (20.0-45.0) Monocytes (%) (Auto) % (1.0-10.0) Eosinophils (%) (Auto) % (0.0-3.0) Basophils (%) (Auto) % (0.0-2.0) Neutrophils % (Manual) Pending Lymphocytes % (Manual) Pending Platelet Estimate Pending Platelet Morphology Pending Erythrocyte Sedimentation Rate 85 MM/HR (0-30) H Prothrombin Time 12.0 SEC (9.30-11.50) H Prothromb Time International Ratio 1.1 (0.9-1.1) Activated Partial Thromboplast Time 28 SEC (23-33) Sodium Level 143 MMOL/L (136-145) Potassium Level 3.1 MMOL/L (3.5-5.1) L Chloride Level 110 MMOL/L (98-107) H Carbon Dioxide Level 28 MMOL/L (21-32) Anion Gap 5 mmol/L (5-15) Blood Urea Nitrogen 15 mg/dL (7-18) Creatinine 0.5 MG/DL (0.55-1.30) L Estimat Glomerular Filtration Rate > 60 mL/min (>60) Glucose Level 124 MG/DL (74-106) H Lactic Acid Level 0.80 mmol/L (0.4-2.0) Calcium Level 8.1 MG/DL (8.5-10.1) L Total Bilirubin 0.2 MG/DL (0.2-1.0) Aspartate Amino Transf (AST/SGOT) 20 U/L (15-37) Alanine Aminotransferase (ALT/SGPT) 30 U/L (12-78) Alkaline Phosphatase 91 U/L (46-116) C-Reactive Protein, Quantitative 15.0 mg/dL (0.00-0.90) H Total Protein 6.0 G/DL (6.4-8.2) L Albumin 1.8 G/DL (3.4-5.0) L Globulin 4.2 g/dL Albumin/Globulin Ratio 0.4 (1.0-2.7) L Amylase Level 62 U/L (25-115) Lipase 88 U/L (73-393) Plan Problems: (1) Malnutrition Assessment & Plan: Needs based on underweight, DM 35.5kg 30-40 kcals/kg 3024-0950 total kcals 1.25-2 g protein/kg 44-71 g total protein 25-35ml/kcal mL/kg 888-1243 total fluid mLs NUTRITION DIAGNOSIS: Swallowing difficulty R/T dysphagia as evidenced by pt is Gtube dependent. ENTERAL NUTRITION RECOMMENDATIONS: Glucerna 1.2 @50ml x24 hrs to provide 1200ml, 1440 kcal, 72g pro, 966ml free H2O - As able rec carb control formula for h/o DM. - Start @30ml/hr for 6 hrs, advance as tolerated 10ml/hr q4-6 hrs to goal. - Flush per MD/ HOB over 30 degrees ADDITIONAL RECOMMENDATIONS: - Per SNF: 5'3" and 78lbs/35.45kg. - Check lytes daily, replete as needed - A1c for eval of glycemic control - Wound care: advanced per RN, f/up with WC RN. Add LINA BID w/ GT, Vit C 250mg BID (2) Decubitus skin ulcer Assessment & Plan: This is an emaciated pt whom presented on admission with Multiple Pressure Injuries. Unstageable Pressure Injury Sacrum (L)11cm x (W)10.5cm. Base of wound is 90% necrotic, surrounding 10% moist, erythematous borders. Edges adherent to base of wound. No odor or exudate noted. Unstageable Pressure Injury L trochanter(L)3.5cm x (W)5.5cm. Base of wound is 95% necrotic, 5% surrounding borders arleen. Edges adherent to base of wound. No odor or exudate noted.Periwound is pale. Non-Blanchable erythema without induration L Ischium. Non-Blanchable erythema without induration bony prominences of L Hip/L Trochanter/L Ischial tuberosity. DTPI L Heel(L)2.5cmx(W)2cm.Base of Pressure Injury is fluctuant, Maroon in colour with surrounding non-blanchable erythema. Non-Blanchable erythema without induration L Hallux (L)1cm x (W)2cm. DTPI R Heel (L)6cm x (W)8cm.Base of Pressure Injury is fluctuant and maroon in colour. Edges are adherent to base of Pressure Injury. Unstageable Pressure Injury dorsal R 1st metatarsal(L)0.8cm x (W)0.6cm.Base of wound is 100% necrotic with marginal erythema along borders . Edges adherent to base of wound.. Non-Blanchable erythema without induration distal/lateral R foot (L)1.5cm x (W)1.5cm. Non-Blanchable erythema without induration R Hallux. Tx.Plan: Cleanse Sacral wound with Saline. Apply Therahoney. Apply Moisture Barrier Paste periwound. Cover with Optifoam drsg. Change every 3 days and prn. Cleanse L Trochanteric wound with Saline.Apply Therhaoney.Apply Moisture Barrier paste Periwound. Cover with Optifoam drsg. Change every 3 days and prn. Apply Moisture Barrier Paste to R and L ischium. Cover each site with Optifoam drsg. Change every 3 days and prn. Cover R hip /R Trochanter with Optifoam drsgs. Change every 7 days and prn. Apply Cavilon Skin Barrier to R heel , R 1st metatarsal,R hallux, Distal /Lateral R foot. Cover each Pressure Injury with Optifoam drsg. Change every 7 days and prn. Apply Cavilon Skin Barrier o L Heel , L Hallux, Distal lateral L Foot . Cover each Pressure Injury with Optifoam drsg. Change every 7 days and prn. Reposition at least every 2hours or as tolerated. Off-load heels with Pillow. APM/SOLOMON Mattress Overlay. (3) UTI (urinary tract infection) (4) Pneumonia (5) Sepsis Assessment & Plan: leukocytosis lactic acidosis malnutrition underweight bmi 13 micro noted on abx as per ID cont abx wounds unlikely etiology will follow with local care and evaluation to ensure thank you (6) PEG (percutaneous endoscopic gastrostomy) adjustment/replacement/removal Chao Ovalle Jun 11, 2020 12:38
[2020-06-11] MEDS ORDERED: MUPIROCIN22 GM TOPIC (13:51)
[2020-06-11] MEDS ORDERED: ABILIFY5 MG GT (13:51)
[2020-06-11] MEDS ORDERED: VITAMIN D325 MC1 GT (13:51)
--- NOTE | 2020-06-11 15:14 | Diagnostic Imaging Report ---
Indication: Shortness of breath Technique: One view of the chest Comparison: 06/09/2020 Findings: Bilateral greater than right infiltrates are unchanged. And left basilar opacity appears somewhat less masslike. The heart size is normal. The pleural spaces are clear. Impression: Unchanged bilateral left greater than right infiltrates. Continued follow-up recommended to rule out underlying left basilar mass
[2020-06-11 16:00] VITALS: BP 116/61
[2020-06-11] MEDS: Vancomycin 500mg/D5W 110ml IVPB SCH ×2 (17:25)
[2020-06-11] MEDS ORDERED: DULCOLAX10 MG RC (17:27)
[2020-06-11] MEDS ORDERED: DOCUSATE SODIU100 M2 GT (17:27)
[2020-06-11] MEDS ORDERED: ACETAMINOPHEN325 M1 ORAL (17:27)
[2020-06-11] MEDS ORDERED: MILK OF MA400 MG/51 GT (17:27)
[2020-06-11] MEDS ORDERED: FLEET ENEMA133 ML RECTAL (17:27)
[2020-06-11] MEDS ORDERED: POTASSIUM40 MEQ/11 GT (17:27)
[2020-06-11] MEDS ORDERED: ZINC SULFATE220 M1 ORAL (17:27)
[2020-06-11] MEDS ORDERED: OMEPRAZOLE5 GM GT (17:27)
[2020-06-11] MEDS ORDERED: LEVETIRACE500 MG/51 GT (17:27)
[2020-06-11] MEDS ORDERED: PRO-STAT LIQUID30 ML GT (17:27)
[2020-06-11] MEDS ORDERED: SANTYL TP (17:27)
[2020-06-11] MEDS ORDERED: SENNA8.6 M2 GT (17:27)
[2020-06-11] MEDS ORDERED: MULTIVITAMINS1 EAC8 GT (17:27)
--- NOTE | 2020-06-11 19:35 | General Progress Note ---
Subjective Constitutional: Reports: no symptoms HEENT: Reports: no symptoms Cardiovascular: Reports: no symptoms Respiratory: Reports: no symptoms Gastrointestinal/Abdominal: Reports: no symptoms Genitourinary: Reports: no symptoms Neurologic/Psychiatric: Reports: no symptoms Endocrine: Reports: no symptoms Hematologic/Lymphatic: Reports: no symptoms Allergies: Coded Allergies: ERYTHROMYCIN BASE (Verified Allergy, Unknown, 11/12/16) Objective Last 24 Hour Vital Signs Date Time Temp Pulse Resp B/P (MAP) Pulse Ox O2 Delivery O2 Flow Rate FiO2 06/11/20 16:00 79 06/11/20 16:00 96.6 71 20 116/61 (79) 100 06/11/20 12:00 98.7 88 19 114/71 (85) 100 06/11/20 12:00 74 06/11/20 09:00 Nasal Cannula 4.0 06/11/20 08:00 80 06/11/20 08:00 96.5 81 20 112/63 (79) 99 06/11/20 04:00 98.1 89 20 121/49 (73) 96 06/11/20 04:00 87 06/11/20 00:00 98.4 89 20 143/68 (93) 97 06/11/20 00:00 90 06/10/20 21:00 Nasal Cannula 4.0 06/10/20 20:00 83 06/10/20 20:00 98.2 83 20 117/72 (87) 96 Intake and Output 06/10/20 06/11/20 19:00 07:00 Intake Total 80 ml 200 ml Output Total 250 ml Balance -170 ml 200 ml Intake Free Water 50 ml 100 ml Tube Feeding 30 ml 100 ml Output Urine Total 250 ml # Voids 2 # Bowel Movements 1 Laboratory Tests 06/10/20 21:09: POC Whole Blood Glucose [Pending] 06/11/20 05:47: POC Whole Blood Glucose 136H 06/11/20 06:00: White Blood Count 19.3H, Red Blood Count 3.31L, Hemoglobin 9.7L, Hematocrit 28.0L, Mean Corpuscular Volume 85, Mean Corpuscular Hemoglobin 29.5, Mean Corpuscular Hemoglobin Concent 34.8, Red Cell Distribution Width 15.2H, Platelet Count 192, Mean Platelet Volume 9.6, Neutrophils (%) (Auto) , Lymphocytes (%) (Auto) , Monocytes (%) (Auto) , Eosinophils (%) (Auto) , Basophils (%) (Auto) , Differential Total Cells Counted 100, Neutrophils % (Manual) 93H, Lymphocytes % (Manual) 5L, Monocytes % (Manual) 2, Eosinophils % (Manual) 0, Basophils % (Manual) 0, Band Neutrophils 0, Platelet Estimate Adequate, Platelet Morphology Normal, Anisocytosis 1+, Erythrocyte Sedimentation Rate 85H, Prothrombin Time 12.0H, Prothromb Time International Ratio 1.1, Activated Partial Thromboplast Time 28, Sodium Level 143, Potassium Level 3.1L, Chloride Level 110H, Carbon Dioxide Level 28, Anion Gap 5, Blood Urea Nitrogen 15, Creatinine 0.5L, Estimat Glomerular Filtration Rate > 60, Glucose Level 124H, Lactic Acid Level 0.80, Calcium Level 8.1L, Total Bilirubin 0.2, Aspartate Amino Transf (AST/SGOT) 20, Alanine Aminotransferase (ALT/SGPT) 30, Alkaline Phosphatase 91, C-Reactive Protein, Quantitative 15.0H, Total Protein 6.0L, Albumin 1.8L, Globulin 4.2, Albumin/Globulin Ratio 0.4L, Amylase Level 62, Lipase 88 Height (Feet): 5 Height (Inches): 4.00 Weight (Pounds): 90 General Appearance: WD/WN, no apparent distress, lethargic, confused EENT: TMs normal Neck: supple Cardiovascular: normal rate, regular rhythm, no gallop/murmur, no JVD Respiratory/Chest: no respiratory distress, no accessory muscle use, rhonchi - bilaterally Abdomen: normal bowel sounds, non tender, soft, no organomegaly, no mass Extremities: non-tender, normal inspection Neurologic: alert, disoriented, aphasia Assessment/Plan Status Narrative Patient is now awake alert febrile and hemodynamically stable eyes are open there is eye contact however she appears confused there is no attempt to communicate however respiratory distress resolved laboratory tests revealed the patient remain with significant leukocytosis of 19,006 that did not improve patient for a pulmonary mass remain CT scan of the chest without contrast was ordered [facility] tests will be done in a.m. with same IV antibiotic. Is a Gale Royal MD, MD Jun 11, 2020 19:35
[2020-06-11 20:00] VITALS: BP 106/72
[2020-06-12] VITALS: BP_SYST 104; BP_SYST 111; BP_DIAS 49; BP_DIAS 56
[2020-06-12] MEDS: Piperacillin/Tazobactam 3.375 GM in NS 110 ML IVPB SCH ×3 (02:49→18:05)
[2020-06-12 04:00] VITALS: BP 116/72
[2020-06-12] MEDS: NovoLOG Insulin Flexpen SUBQ SCH ×4 (06:30→21:00)
[2020-06-12 07:25] LABS: ANION GAP 5 mmol/L (5-15); BLOOD UREA NITROGEN 8 mg/dL (7-18); CALCIUM 8.2 MG/DL (8.5-10.1); CARBON DIOXIDE 30 MMOL/L (21-32); CHLORIDE 102 MMOL/L (98-107); CREATININE 0.4 MG/DL (0.55-1.30); SODIUM 137 MMOL/L (136-145)
[2020-06-12 07:29] LABS: BASOPHILS % (AUTO) 0.4 % (0.0-2.0); EOSINOPHILS % (AUTO) 0.8 % (0.0-3.0); HEMATOCRIT 31.8 % (37.0-47.0); HEMOGLOBIN 11.2 G/DL (12.0-16.0); LYMPHOCYTES % (AUTO) 10.4 % (20.0-45.0); MEAN CORPUSCULAR VOLUME 84 FL (80-99); MONOCYTES % (AUTO) 4.2 % (1.0-10.0); NEUTROPHILS % (AUTO) 84.2 % (45.0-75.0); PLATELET COUNT 202 K/UL (150-450); RED BLOOD COUNT 3.79 M/UL (4.20-5.40); RED CELL DISTRIBUTION WIDTH 15.3 % (11.6-14.8); WHITE BLOOD COUNT 12.3 K/UL (4.8-10.8)
[2020-06-12 08:00] VITALS: BP 125/53
--- NOTE | 2020-06-12 08:47 | Infectious Diseases Prog Note ---
Assessment/Plan 69yo F with: Febrile to 100.6 Tachycardia Sepsis Leukocytosis to 21 Hypoxia on 4L NC Pneumonia, L basilar infiltrate vs mass GPC bacteremia R/o UTI 12/ BCx 2/2 +Staph epi UA 20-30 WBC, UCx +E.coli (terrazas-S) COVID rapid Ag neg, PCR neg BNP 967 CXR: L basilar infiltrate vs mass MRSA nares neg / BCx p 12/ CT chest p Cr 0.8 PMH: CAD, CVA, dementia, CHF, COPD, diabetes SNF resident Plan: Cont vanco IV #3 for Staph epi bacteremia, f/u repeat BCx and TTE Cont Zosyn #4/7 for UTI/pna TTE F/u CT chest F/u repeat BCx 06/11 Trend WBC Monitor CBC/CMP Monitor temp curve, hemodynamics Monitor resp status D/w RN Thank you for this consult. [facility] will continue to follow. Subjective Allergies: Coded Allergies: ERYTHROMYCIN BASE (Verified Allergy, Unknown, 11/12/16) AF WBC 12, improving NAD in bed on 4L NC not interactive Objective Last 24 Hour Vital Signs Date Time Temp Pulse Resp B/P (MAP) Pulse Ox O2 Delivery O2 Flow Rate FiO2 06/12/20 04:00 74 06/12/20 04:00 97.0 97 18 116/72 (87) 96 06/12/20 00:00 97.9 75 19 111/49 (69) 93 06/12/20 00:00 98.6 75 18 104/56 (72) 99 06/12/20 00:00 74 06/11/20 20:00 Nasal Cannula 4.0 06/11/20 20:00 76 06/11/20 16:00 79 06/11/20 16:00 96.6 71 20 116/61 (79) 100 06/11/20 12:00 98.7 88 19 114/71 (85) 100 06/11/20 12:00 74 06/11/20 09:00 Nasal Cannula 4.0 Height (Feet): 5 Height (Inches): 4.00 Weight (Pounds): 90 Gen: NAD in bed HEENT: NCAT CV: RRR Pulm: CTAB Abd: Soft, NTND, +PEG Ext: No c/c/e Neuro: Not interactive Lines: PIVs only Microbiology Date/Time Source Procedure Growth Status 06/09/20 19:30 Rectum - Final NO CARBAPENEM-RESISTANT ENTEROBACTERI... Complete 06/09/20 19:30 Rectum VRE Culture - Final NO VANCOMYCIN RESISTANT ENTEROCOCCUS ... Complete 06/09/20 19:30 Nasal Nares MRSA Culture - Final NO METHICILLIN RESISTANT STAPH AUREUS... Complete 06/09/20 19:25 Nasopharynx SARS-CoV-2 RdRp Gene Assay - Final Complete 06/09/20 18:59 Urine,Clean Catch Urine Culture - Final Escherichia Coli Complete 06/09/20 18:06 Nasopharynx Coronavirus COVID-19 PCR (DAIN) - Final Complete 06/09/20 18:06 Blood Blood Culture - Final Staphylococcus Epidermidis Complete 06/09/20 17:50 Blood Blood Culture - Final Staphylococcus Epidermidis Complete Laboratory Tests Test 06/11/20 22:05 06/12/20 06:12 POC Whole Blood Glucose Pending White Blood Count 12.3 K/UL (4.8-10.8) H Red Blood Count 3.79 M/UL (4.20-5.40) L Hemoglobin 11.2 G/DL (12.0-16.0) L Hematocrit 31.8 % (37.0-47.0) L Mean Corpuscular Volume 84 FL (80-99) Mean Corpuscular Hemoglobin 29.4 PG (27.0-31.0) Mean Corpuscular Hemoglobin Concent 35.1 G/DL (32.0-36.0) Red Cell Distribution Width 15.3 % (11.6-14.8) H Platelet Count 202 K/UL (150-450) Mean Platelet Volume 10.0 FL (6.5-10.1) Neutrophils (%) (Auto) 84.2 % (45.0-75.0) H Lymphocytes (%) (Auto) 10.4 % (20.0-45.0) L Monocytes (%) (Auto) 4.2 % (1.0-10.0) Eosinophils (%) (Auto) 0.8 % (0.0-3.0) Basophils (%) (Auto) 0.4 % (0.0-2.0) Sodium Level 137 MMOL/L (136-145) Potassium Level 3.0 MMOL/L (3.5-5.1) L Chloride Level 102 MMOL/L (98-107) Carbon Dioxide Level 30 MMOL/L (21-32) Anion Gap 5 mmol/L (5-15) Blood Urea Nitrogen 8 mg/dL (7-18) Creatinine 0.4 MG/DL (0.55-1.30) L Estimat Glomerular Filtration Rate > 60 mL/min (>60) Glucose Level 137 MG/DL (74-106) H Calcium Level 8.2 MG/DL (8.5-10.1) L Current Medications Medications (Trade) Dose Ordered Sig/Alvarado Route PRN Reason Start Time Stop Time Status Last Admin Dose Admin Ascorbic Acid (Vitamin C) 500 mg DAILY GT 06/10/20 09:00 07/10/20 08:59 06/11/20 09:17 Atorvastatin Calcium (Lipitor) 10 mg BEDTIME GT 06/10/20 21:00 09/08/20 20:59 06/11/20 21:52 Dextrose (Dextrose 50%) 25 ml Q30M PRN IV Hypoglycemia 06/10/20 01:15 09/08/20 01:14 Dextrose (Dextrose 50%) 50 ml Q30M PRN IV Hypoglycemia 06/10/20 01:15 09/08/20 01:14 Heparin Sodium (Porcine) (Heparin 5000 units/ml) 5,000 units EVERY 12 HOURS SUBQ 06/10/20 09:00 07/25/20 08:59 06/11/20 21:53 Insulin Aspart (NovoLOG) BEFORE MEALS AND HS SUBQ 06/10/20 06:30 09/08/20 06:29 Lansoprazole (Prevacid) 30 mg DAILY GT 06/10/20 09:00 07/10/20 08:59 06/11/20 09:17 Levetiracetam (Keppra) 500 mg EVERY 12 HOURS GT 06/10/20 09:00 07/25/20 08:59 06/11/20 21:52 Piperacillin Sod/ Tazobactam Sod 3.375 gm/Sodium Chloride 110 ml @ 27.5 mls/hr Q8H IVPB 06/10/20 02:00 06/17/20 01:59 06/12/20 02:49 Potassium Chloride (K-Dur) 40 meq BID GT 06/10/20 09:00 09/08/20 08:59 06/11/20 17:24 Sodium Chloride 1,000 ml @ 80 mls/hr [id number] IV 06/10/20 01:30 07/10/20 01:29 06/12/20 03:30 Vancomycin HCl (Vanco pharmacy to dose) 1 ea DAILY PRN MISC Per rx protocol 06/10/20 16:00 07/10/20 15:59 Vancomycin HCl 500 mg/Dextrose 110 ml @ 110 mls/hr Q24H IVPB 06/10/20 18:00 06/15/20 17:59 06/11/20 17:25 Vitamin D (Vitamin D) 400 intlu DAILY ORAL 06/10/20 09:00 07/10/20 08:59 06/11/20 09:17 Beth Marsh M.D. Jun 12, 2020 08:47
[2020-06-12] MEDS: levETIRAcetam 500mg/5ml Liquid GT SCH ×2 (09:44→21:39)
[2020-06-12] MEDS: Vitamin D 400 INTLU TAB ORAL SCH (09:44)
[2020-06-12] MEDS: Ascorbic Acid 500mg tab GT SCH (09:44)
[2020-06-12] MEDS: Heparin 5000 units/ml inj SUBQ SCH ×2 (09:47→21:42)
[2020-06-12] MEDS ORDERED: Tubing IV Secondary IV ONE (09:55)
[2020-06-12] MEDS ORDERED: NS 275ml ONE (09:55)
[2020-06-12 12:00] VITALS: BP 133/78
--- NOTE | 2020-06-12 13:00 | Cardiology Report ---
APPROVED REPORT EKG Measurement Heart [id number] <Conclusion> Sinus tachycardia Possible Left atrial enlargement Septal infarct, age undetermined Abnormal ECG
--- NOTE | 2020-06-12 15:04 | Surgery Progress Note ---
Surgery Progress Note Subjective Additional Comments no acute events labs noted exam stable no n/v Objective Last 24 Hour Vital Signs Date Time Temp Pulse Resp B/P (MAP) Pulse Ox O2 Delivery O2 Flow Rate FiO2 06/12/20 12:00 98.0 74 22 133/78 (96) 95 06/12/20 12:00 71 06/12/20 09:00 Nasal Cannula 4.0 06/12/20 08:00 97.9 83 20 125/53 (77) 96 06/12/20 08:00 79 06/12/20 04:00 74 06/12/20 04:00 97.0 97 18 116/72 (87) 96 06/12/20 00:00 97.9 75 19 111/49 (69) 93 06/12/20 00:00 98.6 75 18 104/56 (72) 99 06/12/20 00:00 74 06/11/20 20:00 Nasal Cannula 4.0 06/11/20 20:00 76 06/11/20 16:00 79 06/11/20 16:00 96.6 71 20 116/61 (79) 100 I&O Intake and Output 06/11/20 06/12/20 19:00 07:00 Intake Total 780 ml 1672.5 ml Output Total 600 ml Balance 780 ml 1072.5 ml Intake Free Water 100 ml 50 ml IV Total 80 ml 1072.5 ml Tube Feeding 600 ml 550 ml Output Urine Total 600 ml # Voids 2 # Bowel Movements 3 1 Dressing: saturated Cardiovascular: RSR Respiratory: decreased breath sounds Abdomen: non-tender, present bowel sounds, non-distended Extremities: no tenderness, no cyanosis, other Laboratory Tests Test 06/11/20 22:05 06/12/20 06:12 POC Whole Blood Glucose Pending White Blood Count 12.3 K/UL (4.8-10.8) H Red Blood Count 3.79 M/UL (4.20-5.40) L Hemoglobin 11.2 G/DL (12.0-16.0) L Hematocrit 31.8 % (37.0-47.0) L Mean Corpuscular Volume 84 FL (80-99) Mean Corpuscular Hemoglobin 29.4 PG (27.0-31.0) Mean Corpuscular Hemoglobin Concent 35.1 G/DL (32.0-36.0) Red Cell Distribution Width 15.3 % (11.6-14.8) H Platelet Count 202 K/UL (150-450) Mean Platelet Volume 10.0 FL (6.5-10.1) Neutrophils (%) (Auto) 84.2 % (45.0-75.0) H Lymphocytes (%) (Auto) 10.4 % (20.0-45.0) L Monocytes (%) (Auto) 4.2 % (1.0-10.0) Eosinophils (%) (Auto) 0.8 % (0.0-3.0) Basophils (%) (Auto) 0.4 % (0.0-2.0) Sodium Level 137 MMOL/L (136-145) Potassium Level 3.0 MMOL/L (3.5-5.1) L Chloride Level 102 MMOL/L (98-107) Carbon Dioxide Level 30 MMOL/L (21-32) Anion Gap 5 mmol/L (5-15) Blood Urea Nitrogen 8 mg/dL (7-18) Creatinine 0.4 MG/DL (0.55-1.30) L Estimat Glomerular Filtration Rate > 60 mL/min (>60) Glucose Level 137 MG/DL (74-106) H Calcium Level 8.2 MG/DL (8.5-10.1) L Plan Problems: (1) Malnutrition Assessment & Plan: Needs based on underweight, DM 35.5kg 30-40 kcals/kg 1665-2471 total kcals 1.25-2 g protein/kg 44-71 g total protein 25-35ml/kcal mL/kg 888-1243 total fluid mLs NUTRITION DIAGNOSIS: Swallowing difficulty R/T dysphagia as evidenced by pt is Gtube dependent. ENTERAL NUTRITION RECOMMENDATIONS: Glucerna 1.2 @50ml x24 hrs to provide 1200ml, 1440 kcal, 72g pro, 966ml free H2O - As able rec carb control formula for h/o DM. - Start @30ml/hr for 6 hrs, advance as tolerated 10ml/hr q4-6 hrs to goal. - Flush per MD/ HOB over 30 degrees ADDITIONAL RECOMMENDATIONS: - Per SNF: 5'3" and 78lbs/35.45kg. - Check lytes daily, replete as needed - A1c for eval of glycemic control - Wound care: advanced per RN, f/up with WC RN. Add LINA BID w/ GT, Vit C 250mg BID (2) Decubitus skin ulcer Assessment & Plan: This is an emaciated pt whom presented on admission with Multiple Pressure Injuries. Unstageable Pressure Injury Sacrum (L)11cm x (W)10.5cm. Base of wound is 90% necrotic, surrounding 10% moist, erythematous borders. Edges adherent to base of wound. No odor or exudate noted. Unstageable Pressure Injury L trochanter(L)3.5cm x (W)5.5cm. Base of wound is 95% necrotic, 5% surrounding borders arleen. Edges adherent to base of wound. No odor or exudate noted.Periwound is pale. Non-Blanchable erythema without induration L Ischium. Non-Blanchable erythema without induration bony prominences of L Hip/L Trochanter/L Ischial tuberosity. DTPI L Heel(L)2.5cmx(W)2cm.Base of Pressure Injury is fluctuant, Maroon in colour with surrounding non-blanchable erythema. Non-Blanchable erythema without induration L Hallux (L)1cm x (W)2cm. DTPI R Heel (L)6cm x (W)8cm.Base of Pressure Injury is fluctuant and maroon in colour. Edges are adherent to base of Pressure Injury. Unstageable Pressure Injury dorsal R 1st metatarsal(L)0.8cm x (W)0.6cm.Base of wound is 100% necrotic with marginal erythema along borders . Edges adherent to base of wound.. Non-Blanchable erythema without induration distal/lateral R foot (L)1.5cm x (W)1.5cm. Non-Blanchable erythema without induration R Hallux. Tx.Plan: Cleanse Sacral wound with Saline. Apply Therahoney. Apply Moisture Barrier Paste periwound. Cover with Optifoam drsg. Change every 3 days and prn. Cleanse L Trochanteric wound with Saline.Apply Therhaoney.Apply Moisture Barrier paste Periwound. Cover with Optifoam drsg. Change every 3 days and prn. Apply Moisture Barrier Paste to R and L ischium. Cover each site with Optifoam drsg. Change every 3 days and prn. Cover R hip /R Trochanter with Optifoam drsgs. Change every 7 days and prn. Apply Cavilon Skin Barrier to R heel , R 1st metatarsal,R hallux, Distal /Lateral R foot. Cover each Pressure Injury with Optifoam drsg. Change every 7 days and prn. Apply Cavilon Skin Barrier o L Heel , L Hallux, Distal lateral L Foot . Cover each Pressure Injury with Optifoam drsg. Change every 7 days and prn. Reposition at least every 2hours or as tolerated. Off-load heels with Pillow. APM/SOLOMON Mattress Overlay. (3) UTI (urinary tract infection) (4) Pneumonia (5) Sepsis Assessment & Plan: leukocytosis lactic acidosis malnutrition underweight bmi 13 micro noted on abx as per ID cont abx wounds unlikely etiology will follow with local care and evaluation to ensure thank you (6) PEG (percutaneous endoscopic gastrostomy) adjustment/replacement/removal Chao Ovalle Jun 12, 2020 15:04
--- NOTE | 2020-06-12 15:19 | General Progress Note ---
Subjective Constitutional: Reports: no symptoms HEENT: Reports: no symptoms Cardiovascular: Reports: no symptoms Respiratory: Reports: cough Gastrointestinal/Abdominal: Reports: no symptoms Genitourinary: Reports: no symptoms Neurologic/Psychiatric: Reports: no symptoms Endocrine: Reports: no symptoms Hematologic/Lymphatic: Reports: no symptoms Allergies: Coded Allergies: ERYTHROMYCIN BASE (Verified Allergy, Unknown, 11/12/16) Objective Last 24 Hour Vital Signs Date Time Temp Pulse Resp B/P (MAP) Pulse Ox O2 Delivery O2 Flow Rate FiO2 06/12/20 12:00 98.0 74 22 133/78 (96) 95 06/12/20 12:00 71 06/12/20 09:00 Nasal Cannula 4.0 06/12/20 08:00 97.9 83 20 125/53 (77) 96 06/12/20 08:00 79 06/12/20 04:00 74 06/12/20 04:00 97.0 97 18 116/72 (87) 96 06/12/20 00:00 97.9 75 19 111/49 (69) 93 06/12/20 00:00 98.6 75 18 104/56 (72) 99 06/12/20 00:00 74 06/11/20 20:00 Nasal Cannula 4.0 06/11/20 20:00 76 06/11/20 16:00 79 06/11/20 16:00 96.6 71 20 116/61 (79) 100 Intake and Output 06/11/20 06/12/20 19:00 07:00 Intake Total 780 ml 1672.5 ml Output Total 600 ml Balance 780 ml 1072.5 ml Intake Free Water 100 ml 50 ml IV Total 80 ml 1072.5 ml Tube Feeding 600 ml 550 ml Output Urine Total 600 ml # Voids 2 # Bowel Movements 3 1 Laboratory Tests 06/11/20 22:05: POC Whole Blood Glucose [Pending] 06/12/20 06:12: White Blood Count 12.3H, Red Blood Count 3.79L, Hemoglobin 11.2L, Hematocrit 31.8L, Mean Corpuscular Volume 84, Mean Corpuscular Hemoglobin 29.4, Mean Corpuscular Hemoglobin Concent 35.1, Red Cell Distribution Width 15.3H, Platelet Count 202, Mean Platelet Volume 10.0, Neutrophils (%) (Auto) 84.2H, Lymphocytes (%) (Auto) 10.4L, Monocytes (%) (Auto) 4.2, Eosinophils (%) (Auto) 0.8, Baso phils (%) (Auto) 0.4, Sodium Level 137, Potassium Level 3.0L, Chloride Level 102, Carbon Dioxide Level 30, Anion Gap 5, Blood Urea Nitrogen 8, Creatinine 0.4L, Estimat Glomerular Filtration Rate > 60, Glucose Level 137H, Calcium Level 8.2L Height (Feet): 5 Height (Inches): 4.00 Weight (Pounds): 90 General Appearance: WD/WN, mild distress EENT: TMs normal Neck: supple Cardiovascular: normal rate, regular rhythm, no gallop/murmur, no JVD Respiratory/Chest: no respiratory distress, no accessory muscle use, rhonchi - left Abdomen: normal bowel sounds, non tender, soft, no organomegaly, no mass, abnormal bowel sounds Extremities: non-tender Neurologic: alert, responsive, aphasia Skin: warm/dry Assessment/Plan Status Narrative Awake alert febrile eye contact, normal facial expression and movement mobility than yesterday no respiratory distress or being in the hospital consult to look distress her leukocytosis drop [phone] scan of the of the chest suspicion of small mass in the left lung was twice reported by radiologist at the time of this dictation test and its results are not available however clinically patient continued to improve with IV antibiotic she will be done in a.m. Gale Mays MD, MD Jun 12, 2020 15:19
[2020-06-12 16:00] VITALS: BP 112/67
--- NOTE | 2020-06-12 16:44 | Diagnostic Imaging Report ---
Clinical Indication: Chest pain Technique: Spiral acquisitions obtained through the chest. No IV contrast utilized, per referring physician request. Multiplanar reconstructions generated. Total dose length product 121 mGycm. CTDIvol(s) 2 mGy. Dose reduction achieved using automated exposure control Comparison: Recent chest radiograph Findings: There is a slight degree of image degradation due to motion artifact. The right upper lobe is largely clear following may be some interstitial septal thickening in the apex. The right middle lobe is clear. The right lower lobe demonstrates some atelectasis at the right lung base. There is also a focal 6 mm nodular opacity, image 50 series 5. There is a vague mosaic attenuation pattern. Left upper lobe demonstrates scattered areas of mosaic attenuation superiorly image 10 of series 5 demonstrates a 3 mm left upper lobe nodule.. Irregular consolidative opacities are seen in the inferior left upper lobe. More extensive consolidation in a patchy and irregular distribution are seen in the left lower lobe. There is a small left pleural effusion. The heart is upper limits of normal in size. The ascending thoracic aorta is mildly ectatic. No mediastinal or hilar mass or adenopathy. Unremarkable. No axillary or chest wall mass or adenopathy demonstrated. The bones are unremarkable except for minimal degenerative spondylosis changes and slight anterior bowing of the sternum. The included lung bases demonstrate a gastrostomy which appears well-positioned. There is trace ascites Impression: Opacities in the left lower lobe and also to a lesser extent in the left upper lobe and minimally in the right lower lobe. Appearance is consistent with consolidation rather than mass. Most likely represents pneumonia, appearance nonspecific as regards etiology. Patchy pulmonary edema also possible, among other possibilities Small left pleural effusion Bilateral small nodules, as described. No further follow-up necessary if there are no risk factors for lung carcinoma. There are significant risk factors, then short interval follow-up CT in 6-12 months is recommended Trace ascites The CT scanner at [facility] is accredited by the [employer] and the scans are performed using protocols designed to limit radiation exposure to as low as reasonably achievable to attain images of sufficient resolution adequate for diagnostic evaluation.
[2020-06-12] MEDS: Vancomycin 500mg/D5W 110ml IVPB SCH ×2 (18:05)
[2020-06-12 20:00] VITALS: BP 123/85
[2020-06-13] VITALS: BP 125/66
[2020-06-13] MEDS: Piperacillin/Tazobactam 3.375 GM in NS 110 ML IVPB SCH ×3 (01:52→17:35)
[2020-06-13 04:00] VITALS: BP 132/69
[2020-06-13] MEDS: NovoLOG Insulin Flexpen SUBQ SCH ×4 (06:23→20:50)
[2020-06-13 08:00] VITALS: BP 100/61
[2020-06-13] MEDS: levETIRAcetam 500mg/5ml Liquid GT SCH ×2 (08:14→20:36)
[2020-06-13] MEDS: Vitamin D 400 INTLU TAB ORAL SCH (08:15)
[2020-06-13] MEDS: Ascorbic Acid 500mg tab GT SCH (08:15)
[2020-06-13] MEDS: Heparin 5000 units/ml inj SUBQ SCH ×2 (08:17→20:37)
--- NOTE | 2020-06-13 08:38 | Diagnostic Imaging Report ---
EXAM: XR Chest, 2 Views CLINICAL HISTORY: F/U TECHNIQUE: Frontal and lateral views of the chest. COMPARISON: 06/11/20 FINDINGS: Lungs: There is been slight improvement in left lower lobe infiltrate with no sniffing change in left upper lobe and right lung infiltrates. No new infiltrates identified. Pleural space: Unremarkable. No pneumothorax. Heart: Unremarkable. No cardiomegaly. Mediastinum: Unremarkable. Bones/joints: Unremarkable. IMPRESSION: There is been slight improvement in left lower lobe infiltrate with no sniffing change in left upper lobe and right lung infiltrates. No new infiltrates identified.
[2020-06-13 09:26] LABS: BASOPHILS % (AUTO) 0.6 % (0.0-2.0); EOSINOPHILS % (AUTO) 1.3 % (0.0-3.0); HEMATOCRIT 35.1 % (37.0-47.0); HEMOGLOBIN 12.1 G/DL (12.0-16.0); LYMPHOCYTES % (AUTO) 17.3 % (20.0-45.0); MEAN CORPUSCULAR VOLUME 84 FL (80-99); NEUTROPHILS % (AUTO) 73.9 % (45.0-75.0); PLATELET COUNT 226 K/UL (150-450); RED CELL DISTRIBUTION WIDTH 15.3 % (11.6-14.8); WHITE BLOOD COUNT 11.2 K/UL (4.8-10.8)
[2020-06-13 09:45] LABS: ALANINE AMINOTRANSFERASE 16 U/L (12-78); ALBUMIN/GLOBULIN RATIO 0.4 (1.0-2.7); ALKALINE PHOSPHATASE 96 U/L (46-116); ASPARTATE AMINO TRANSFERASE 18 U/L (15-37); BILIRUBIN,TOTAL 0.2 MG/DL (0.2-1.0); BLOOD UREA NITROGEN 10 mg/dL (7-18); CALCIUM 8.6 MG/DL (8.5-10.1); CARBON DIOXIDE 30 MMOL/L (21-32); CHLORIDE 103 MMOL/L (98-107); CREATININE 0.4 MG/DL (0.55-1.30); POTASSIUM 4.2 MMOL/L (3.5-5.1); SODIUM 136 MMOL/L (136-145)
[2020-06-13 12:00] VITALS: BP 136/82
--- NOTE | 2020-06-13 14:13 | Cardiology Report ---
APPROVED REPORT EXAM: Two-dimensional and M-mode echocardiogram with Doppler and color Doppler. INDICATION ENDOCARDITIS M-Mode DIMENSIONS IVSd0.5 (0.7-1.1cm)Left Atrium (MM)3.4 (1.6-4.0cm) LVDd4.9 (3.5-5.6cm)Aortic Root2.3 (2.0-3.7cm) PWd0.9 (0.7-1.1cm)Aortic Cusp Exc.1.6 (1.5-2.0cm) IVSs0.9 cm LVDs2.7 (2.5-4.0cm) PWs1.4 cm <Conclusion> Technically difficult study due poor acoustical windows. Normal left ventricular chamber size, systolic function and wall motion to extent visualized. Left ventricular ejection fraction estimated to be 55-60%. All other cardiac chamber sizes are within normal limits. Moderate calcification of aortic valve with adequate cusp excursion. Thickened mitral valve leaflets with normal excursion. Mitral annulus and aortic root calcification. Pulmonic valve not well visualized. Normal tricuspid valve structure. IVC at normal size with physiologic collapse. A color flow and spectral Doppler study was performed and revealed: Trace aortic insufficiency. Mild mitral regurgitation. Mitral diastolic velocities suggest reduced left ventricular relaxation c/w mild LV diastolic dysfunction (Grade I ). Trace tricuspid regurgitation. Tricuspid systolic velocities suggests peak right ventricular systolic pressure of 9 mmHg.
--- NOTE | 2020-06-13 14:31 | Infectious Diseases Prog Note ---
Assessment/Plan 69yo F with: Febrile to 100.6, SP Tachycardia Sepsis Leukocytosis to 21; imporving Hypoxia on 4L NC Pneumonia, L basilar infiltrate vs mass GPC bacteremia- contaminant R/o UTI 06/09 BCx 2/2 +Staph epi UA 20-30 WBC, UCx +E.coli (terrazas-S) COVID rapid Ag neg, PCR neg BNP 967 CXR: L basilar infiltrate vs mass MRSA nares neg 06/11 BCx NTD 06/12 CT chest : Opacities in the left lower lobe and also to a lesser extent in the left upper lobe and minimally in the right lower lobe. Appearance is consistent with consolidation rather than mass. Most likely represents pneumonia, appearance nonspecific as regards etiology. Patchy pulmonary edema also possible, among other possibilities. Small left pleural effusion. Bilateral small nodules, as described. No further follow-up necessary if there are no risk factors for lung carcinoma. There are significant risk factors, then short interval follow-up CT in 6-12 months is recommended. Trace ascites 2d echo no vegetations Cr 0.8 PMH: CAD, CVA, dementia, CHF, COPD, diabetes SNF resident Plan: Cont vanco IV #4 Cont Zosyn #5/7 for UTI/pna F/u repeat BCx 06/11 Trend WBC sp cx Monitor CBC/CMP Monitor temp curve, hemodynamics Monitor resp status D/w RN Thank you for this consult. [facility] will continue to follow. Subjective Allergies: Coded Allergies: ERYTHROMYCIN BASE (Verified Allergy, Unknown, 11/12/16) afebrile at 4l NC repeeat BC xnTD leukocytosis improving Objective Last 24 Hour Vital Signs Date Time Temp Pulse Resp B/P (MAP) Pulse Ox O2 Delivery O2 Flow Rate FiO2 06/13/20 12:00 82 06/13/20 08:00 78 06/13/20 04:00 97.5 76 16 132/69 (90) 96 06/13/20 04:00 78 06/13/20 00:00 79 06/13/20 00:00 97.7 75 16 125/66 (85) 94 06/12/20 21:00 Nasal Cannula 4.0 06/12/20 20:00 80 06/12/20 20:00 97.9 86 20 123/85 (98) 98 06/12/20 16:00 98.8 97 20 112/67 (82) 96 06/12/20 16:00 75 Height (Feet): 5 Height (Inches): 4.00 Weight (Pounds): 90 Gen: NAD in bed HEENT: NCAT CV: RRR Pulm: CTAB Abd: Soft, NTND, +PEG Ext: No c/c/e Neuro: Not interactive Lines: PIVs only Microbiology Date/Time Source Procedure Growth Status 06/11/20 06:00 Blood Blood Culture - Preliminary NO GROWTH AFTER 24 HOURS Resulted Laboratory Tests Test 06/13/20 06:21 06/13/20 08:15 POC Whole Blood Glucose 105 MG/DL (74-106) White Blood Count 11.2 K/UL (4.8-10.8) H Red Blood Count 4.20 M/UL (4.20-5.40) Hemoglobin 12.1 G/DL (12.0-16.0) Hematocrit 35.1 % (37.0-47.0) L Mean Corpuscular Volume 84 FL (80-99) Mean Corpuscular Hemoglobin 28.8 PG (27.0-31.0) Mean Corpuscular Hemoglobin Concent 34.4 G/DL (32.0-36.0) Red Cell Distribution Width 15.3 % (11.6-14.8) H Platelet Count 226 K/UL (150-450) Mean Platelet Volume 10.0 FL (6.5-10.1) Neutrophils (%) (Auto) 73.9 % (45.0-75.0) Lymphocytes (%) (Auto) 17.3 % (20.0-45.0) L Monocytes (%) (Auto) 7.0 % (1.0-10.0) Eosinophils (%) (Auto) 1.3 % (0.0-3.0) Basophils (%) (Auto) 0.6 % (0.0-2.0) Sodium Level 136 MMOL/L (136-145) Potassium Level 4.2 MMOL/L (3.5-5.1) Chloride Level 103 MMOL/L (98-107) Carbon Dioxide Level 30 MMOL/L (21-32) Blood Urea Nitrogen 10 mg/dL (7-18) Creatinine 0.4 MG/DL (0.55-1.30) L Estimat Glomerular Filtration Rate > 60 mL/min (>60) Glucose Level 111 MG/DL (74-106) H Calcium Level 8.6 MG/DL (8.5-10.1) Total Bilirubin 0.2 MG/DL (0.2-1.0) Aspartate Amino Transf (AST/SGOT) 18 U/L (15-37) Alanine Aminotransferase (ALT/SGPT) 16 U/L (12-78) Alkaline Phosphatase 96 U/L (46-116) Total Protein 6.8 G/DL (6.4-8.2) Albumin 2.0 G/DL (3.4-5.0) L Globulin 4.8 g/dL Albumin/Globulin Ratio 0.4 (1.0-2.7) L Current Medications Medications (Trade) Dose Ordered Sig/Alvarado Route PRN Reason Start Time Stop Time Status Last Admin Dose Admin Ascorbic Acid (Vitamin C) 500 mg DAILY GT 06/10/20 09:00 07/10/20 08:59 06/13/20 08:15 Atorvastatin Calcium (Lipitor) 10 mg BEDTIME GT 06/10/20 21:00 09/08/20 20:59 06/12/20 21:39 Dextrose (Dextrose 50%) 25 ml Q30M PRN IV Hypoglycemia 06/10/20 01:15 09/08/20 01:14 Dextrose (Dextrose 50%) 50 ml Q30M PRN IV Hypoglycemia 06/10/20 01:15 09/08/20 01:14 Heparin Sodium (Porcine) (Heparin 5000 units/ml) 5,000 units EVERY 12 HOURS SUBQ 06/10/20 09:00 07/25/20 08:59 06/13/20 08:17 Insulin Aspart (NovoLOG) BEFORE MEALS AND HS SUBQ 06/10/20 06:30 09/08/20 06:29 Lansoprazole (Prevacid) 30 mg DAILY GT 06/10/20 09:00 07/10/20 08:59 06/13/20 08:14 Levetiracetam (Keppra) 500 mg EVERY 12 HOURS GT 06/10/20 09:00 07/25/20 08:59 06/13/20 08:14 Piperacillin Sod/ Tazobactam Sod 3.375 gm/Sodium Chloride 110 ml @ 27.5 mls/hr Q8H IVPB 06/10/20 02:00 06/17/20 01:59 06/13/20 11:07 Potassium Chloride (K-Dur) 40 meq BID GT 06/10/20 09:00 09/08/20 08:59 06/13/20 08:15 Sodium Chloride 1,000 ml @ 80 mls/hr [id number] IV 06/10/20 01:30 07/10/20 01:29 06/12/20 17:12 Vancomycin HCl (Vanco pharmacy to dose) 1 ea DAILY PRN MISC Per rx protocol 06/10/20 16:00 07/10/20 15:59 Vancomycin HCl 500 mg/Dextrose 110 ml @ 110 mls/hr Q24H IVPB 06/10/20 18:00 06/15/20 17:59 06/12/20 18:05 Vitamin D (Vitamin D) 400 intlu DAILY ORAL 06/10/20 09:00 07/10/20 08:59 06/13/20 08:15 Leilani Mckeon M.D. Jun 13, 2020 14:31
[2020-06-13 16:00] VITALS: BP 129/75
[2020-06-13] MEDS: Vancomycin 500mg/D5W 110ml IVPB SCH ×2 (17:34)
[2020-06-13 20:00] VITALS: BP 128/67
--- NOTE | 2020-06-13 20:35 | General Progress Note ---
Subjective Constitutional: Reports: no symptoms, other - More alert longer eye contact HEENT: Reports: no symptoms Cardiovascular: Reports: no symptoms Respiratory: Reports: cough, shortness of breath Gastrointestinal/Abdominal: Reports: no symptoms Genitourinary: Reports: no symptoms Neurologic/Psychiatric: Reports: anxiety, weakness Hematologic/Lymphatic: Reports: no symptoms Allergies: Coded Allergies: ERYTHROMYCIN BASE (Verified Allergy, Unknown, 11/12/16) Objective Last 24 Hour Vital Signs Date Time Temp Pulse Resp B/P (MAP) Pulse Ox O2 Delivery O2 Flow Rate FiO2 06/13/20 16:00 98.6 80 20 129/75 (93) 94 06/13/20 16:00 92 06/13/20 12:00 82 06/13/20 12:00 98.1 85 18 136/82 (100) 95 06/13/20 09:00 Nasal Cannula 2.0 06/13/20 08:00 78 06/13/20 08:00 97.4 74 18 100/61 (74) 94 06/13/20 04:00 97.5 76 16 132/69 (90) 96 06/13/20 04:00 78 06/13/20 00:00 79 06/13/20 00:00 97.7 75 16 125/66 (85) 94 06/12/20 21:00 Nasal Cannula 4.0 Intake and Output 06/12/20 06/13/20 19:00 07:00 Intake Total 720 ml Balance 720 ml IV Total 720 ml # Voids 2 2 # Bowel Movements 1 Laboratory Tests 06/13/20 06:21: POC Whole Blood Glucose 105 06/13/20 08:15: White Blood Count 11.2H, Red Blood Count 4.20, Hemoglobin 12.1, Hematocrit 35.1L , Mean Corpuscular Volume 84, Mean Corpuscular Hemoglobin 28.8, Mean Corpuscular Hemoglobin Concent 34.4, Red Cell Distribution Width 15.3H, Platelet Count 226, Mean Platelet Volume 10.0, Neutrophils (%) (Auto) 73.9, Lymphocytes (%) (Auto) 17.3L, Monocytes (%) (Auto) 7.0, Eosinophils (%) (Auto) 1.3, Basophils (%) (Auto) 0.6, Sodium Level 136, Potassium Level 4.2, Chloride Level 103, Carbon Dioxide Level 30, Blood Urea Nitrogen 10, Creatinine 0.4L, Estimat Glomerular Filtration Rate > 60, Glucose Level 111H, Calcium Level 8.6, Total Bilirubin 0.2, Aspartate Amino Transf (AST/SGOT) 18, Alanine Aminotransferase (ALT/SGPT) 16, Alkaline Phosphatase 96, Total Protein 6.8, Albumin 2.0L, Globulin 4.8, Albumin/Globulin Ratio 0.4L 06/13/20 16:08: POC Whole Blood Glucose 81 06/13/20 17:30: Vancomycin Level Trough 1.9L Height (Feet): 5 Height (Inches): 4.00 Weight (Pounds): 90 General Appearance: alert, lethargic, cachetic EENT: normal ENT inspection Neck: normal alignment Cardiovascular: normal rate, regular rhythm, no gallop/murmur, no JVD Respiratory/Chest: rhonchi - bilaterally Abdomen: normal bowel sounds, non tender, soft, no organomegaly, no mass Extremities: non-tender, other - Lower extremity muscle wasting Neurologic: alert, responsive, depressed affect Assessment/Plan Status Narrative Patient is awake alert febrile more energetic than in previous days longer eye contact and more bed mobility laboratory tests revealed a WBC continue to decline chest x-ray shows some improvement in left lower lobe and somehow in the left upper lobe as well she continues to be on vancomycin and piperacillin days of Bactrim repeat laboratory tests will be done in a.m. Gale Mays MD, MD Jun 13, 2020 20:35
--- NOTE | 2020-06-13 23:04 | Surgery Progress Note ---
Surgery Progress Note Subjective Additional Comments leukocytosis improving chest ct noted no n/v Objective Last 24 Hour Vital Signs Date Time Temp Pulse Resp B/P (MAP) Pulse Ox O2 Delivery O2 Flow Rate FiO2 06/13/20 20:00 77 06/13/20 20:00 97.5 76 20 128/67 (87) 96 06/13/20 16:00 98.6 80 20 129/75 (93) 94 06/13/20 16:00 92 06/13/20 12:00 82 06/13/20 12:00 98.1 85 18 136/82 (100) 95 06/13/20 09:00 Nasal Cannula 2.0 06/13/20 08:00 78 06/13/20 08:00 97.4 74 18 100/61 (74) 94 06/13/20 04:00 97.5 76 16 132/69 (90) 96 06/13/20 04:00 78 06/13/20 00:00 79 06/13/20 00:00 97.7 75 16 125/66 (85) 94 I&O Intake and Output 06/12/20 06/13/20 19:00 07:00 Intake Total 720 ml Balance 720 ml IV Total 720 ml # Voids 2 2 # Bowel Movements 1 Dressing: saturated Cardiovascular: RSR Respiratory: decreased breath sounds Abdomen: non-tender, present bowel sounds Extremities: no tenderness, no cyanosis Laboratory Tests Test 06/13/20 06:21 06/13/20 08:15 06/13/20 16:08 06/13/20 17:30 POC Whole Blood Glucose 105 MG/DL (74-106) 81 MG/DL (74-106) White Blood Count 11.2 K/UL (4.8-10.8) H Red Blood Count 4.20 M/UL (4.20-5.40) Hemoglobin 12.1 G/DL (12.0-16.0) Hematocrit 35.1 % (37.0-47.0) L Mean Corpuscular Volume 84 FL (80-99) Mean Corpuscular Hemoglobin 28.8 PG (27.0-31.0) Mean Corpuscular Hemoglobin Concent 34.4 G/DL (32.0-36.0) Red Cell Distribution Width 15.3 % (11.6-14.8) H Platelet Count 226 K/UL (150-450) Mean Platelet Volume 10.0 FL (6.5-10.1) Neutrophils (%) (Auto) 73.9 % (45.0-75.0) Lymphocytes (%) (Auto) 17.3 % (20.0-45.0) L Monocytes (%) (Auto) 7.0 % (1.0-10.0) Eosinophils (%) (Auto) 1.3 % (0.0-3.0) Basophils (%) (Auto) 0.6 % (0.0-2.0) Sodium Level 136 MMOL/L (136-145) Potassium Level 4.2 MMOL/L (3.5-5.1) Chloride Level 103 MMOL/L (98-107) Carbon Dioxide Level 30 MMOL/L (21-32) Blood Urea Nitrogen 10 mg/dL (7-18) Creatinine 0.4 MG/DL (0.55-1.30) L Estimat Glomerular Filtration Rate > 60 mL/min (>60) Glucose Level 111 MG/DL (74-106) H Calcium Level 8.6 MG/DL (8.5-10.1) Total Bilirubin 0.2 MG/DL (0.2-1.0) Aspartate Amino Transf (AST/SGOT) 18 U/L (15-37) Alanine Aminotransferase (ALT/SGPT) 16 U/L (12-78) Alkaline Phosphatase 96 U/L (46-116) Total Protein 6.8 G/DL (6.4-8.2) Albumin 2.0 G/DL (3.4-5.0) L Globulin 4.8 g/dL Albumin/Globulin Ratio 0.4 (1.0-2.7) L Vancomycin Level Trough 1.9 ug/mL (5.0-12.0) L Test 06/13/20 20:48 POC Whole Blood Glucose 102 MG/DL (74-106) Plan Problems: (1) Malnutrition Assessment & Plan: Needs based on underweight, DM 35.5kg 30-40 kcals/kg 4825-0019 total kcals 1.25-2 g protein/kg 44-71 g total protein 25-35ml/kcal mL/kg [phone] total fluid mLs NUTRITION DIAGNOSIS: Swallowing difficulty R/T dysphagia as evidenced by pt is Gtube dependent. ENTERAL NUTRITION RECOMMENDATIONS: Glucerna 1.2 @50ml x24 hrs to provide 1200ml, 1440 kcal, 72g pro, 966ml free H2O - As able rec carb control formula for h/o DM. - Start @30ml/hr for 6 hrs, advance as tolerated 10ml/hr q4-6 hrs to goal. - Flush per MD/ HOB over 30 degrees ADDITIONAL RECOMMENDATIONS: - Per SNF: 5'3" and 78lbs/35.45kg. - Check lytes daily, replete as needed - A1c for eval of glycemic control - Wound care: advanced per RN, f/up with WC RN. Add ILNA BID w/ GT, Vit C 250mg BID (2) Decubitus skin ulcer Assessment & Plan: This is an emaciated pt whom presented on admission with Multiple Pressure Injuries. Unstageable Pressure Injury Sacrum (L)11cm x (W)10.5cm. Base of wound is 90% necrotic, surrounding 10% moist, erythematous borders. Edges adherent to base of wound. No odor or exudate noted. Unstageable Pressure Injury L trochanter(L)3.5cm x (W)5.5cm. Base of wound is 95% necrotic, 5% surrounding borders arleen. Edges adherent to base of wound. No odor or exudate noted.Periwound is pale. Non-Blanchable erythema without induration L Ischium. Non-Blanchable erythema without induration bony prominences of L Hip/L Trochanter/L Ischial tuberosity. DTPI L Heel(L)2.5cmx(W)2cm.Base of Pressure Injury is fluctuant, Maroon in colour with surrounding non-blanchable erythema. Non-Blanchable erythema without induration L Hallux (L)1cm x (W)2cm. DTPI R Heel (L)6cm x (W)8cm.Base of Pressure Injury is fluctuant and maroon in colour. Edges are adherent to base of Pressure Injury. Unstageable Pressure Injury dorsal R 1st metatarsal(L)0.8cm x (W)0.6cm.Base of wound is 100% necrotic with marginal erythema along borders . Edges adherent to base of wound.. Non-Blanchable erythema without induration distal/lateral R foot (L)1.5cm x (W)1.5cm. Non-Blanchable erythema without induration R Hallux. Tx.Plan: Cleanse Sacral wound with Saline. Apply Therahoney. Apply Moisture Barrier Paste periwound. Cover with Optifoam drsg. Change every 3 days and prn. Cleanse L Trochanteric wound with Saline.Apply Therhaoney.Apply Moisture Barrier paste Periwound. Cover with Optifoam drsg. Change every 3 days and prn. Apply Moisture Barrier Paste to R and L ischium. Cover each site with Optifoam drsg. Change every 3 days and prn. Cover R hip /R Trochanter with Optifoam drsgs. Change every 7 days and prn. Apply Cavilon Skin Barrier to R heel , R 1st metatarsal,R hallux, Distal /Lateral R foot. Cover each Pressure Injury with Optifoam drsg. Change every 7 days and prn. Apply Cavilon Skin Barrier o L Heel , L Hallux, Distal lateral L Foot . Cover each Pressure Injury with Optifoam drsg. Change every 7 days and prn. Reposition at least every 2hours or as tolerated. Off-load heels with Pillow. APM/SOLOMON Mattress Overlay. (3) UTI (urinary tract infection) (4) Pneumonia (5) Sepsis Assessment & Plan: leukocytosis lactic acidosis malnutrition underweight bmi 13 micro noted on abx as per ID cont abx wounds unlikely etiology will follow with local care and evaluation to ensure thank you There is a slight degree of image degradation due to motion artifact. The right upper lobe is largely clear following may be some interstitial septal thickening in the apex. The right middle lobe is clear. The right lower lobe demonstrates some atelectasis at the right lung base. There is also a focal 6 mm nodular opacity, image 50 series 5. There is a vague mosaic attenuation pattern. Left upper lobe demonstrates scattered areas of mosaic attenuation superiorly image 10 of series 5 demonstrates a 3 mm left upper lobe nodule.. Irregular consolidative opacities are seen in the inferior left upper lobe. More extensive consolidation in a patchy and irregular distribution are seen in the left lower lobe. There is a small left pleural effusion. The heart is upper limits of normal in size. The ascending thoracic aorta is mildly ectatic. No mediastinal or hilar mass or adenopathy. Unremarkable. No axillary or chest wall mass or adenopathy demonstrated. The bones are unremarkable except for minimal degenerative spondylosis changes and slight anterior bowing of the sternum. The included lung bases demonstrate a gastrostomy which appears well-positioned. There is trace ascites Impression: Opacities in the left lower lobe and also to a lesser extent in the left upper lobe and minimally in the right lower lobe. Appearance is consistent with consolidation rather than mass. Most likely represents pneumonia, appearance nonspecific as regards etiology. Patchy pulmonary edema also possible, among other possibilities Small left pleural effusion Bilateral small nodules, as described. No further follow-up necessary if there are no risk factors for lung carcinoma. There are significant risk factors, then short interval follow-up CT in 6-12 months is recommended Trace ascites (6) PEG (percutaneous endoscopic gastrostomy) adjustment/replacement/removal Chao Ovalle Jun 13, 2020 23:04
[2020-06-14] VITALS: BP 126/67
[2020-06-14] MEDS: Vancomycin 750mg/NS 275ml IVPB SCH ×6 (00:19→23:56)
[2020-06-14] MEDS: Piperacillin/Tazobactam 3.375 GM in NS 110 ML IVPB SCH ×3 (02:58→17:12)
[2020-06-14 04:00] VITALS: BP 120/63
[2020-06-14] MEDS ORDERED: Vancomycin 750mg/NS 275ml IVPB SCH ×2 (06:00)
[2020-06-14] MEDS: NovoLOG Insulin Flexpen SUBQ SCH ×4 (06:30→21:00)
[2020-06-14 07:43] LABS: BASOPHILS % (AUTO) 0.9 % (0.0-2.0); EOSINOPHILS % (AUTO) 2.2 % (0.0-3.0); HEMOGLOBIN 12.4 G/DL (12.0-16.0); LYMPHOCYTES % (AUTO) 15.5 % (20.0-45.0); MEAN CORPUSCULAR VOLUME 85 FL (80-99); NEUTROPHILS % (AUTO) 74.3 % (45.0-75.0); PLATELET COUNT 271 K/UL (150-450); RED BLOOD COUNT 4.25 M/UL (4.20-5.40); RED CELL DISTRIBUTION WIDTH 14.6 % (11.6-14.8); WHITE BLOOD COUNT 11.7 K/UL (4.8-10.8)
[2020-06-14 08:00] VITALS: BP 123/63
[2020-06-14 08:43] LABS: ANION GAP 9 mmol/L (5-15); BLOOD UREA NITROGEN 9 mg/dL (7-18); CALCIUM 8.8 MG/DL (8.5-10.1); CARBON DIOXIDE 26 MMOL/L (21-32); CHLORIDE 104 MMOL/L (98-107); CREATININE 0.4 MG/DL (0.55-1.30); POTASSIUM 3.8 MMOL/L (3.5-5.1); SODIUM 139 MMOL/L (136-145)
[2020-06-14] MEDS ORDERED: Tubing IV Secondary IV ONE (09:25)
[2020-06-14] MEDS: levETIRAcetam 500mg/5ml Liquid GT SCH ×2 (10:10→22:31)
[2020-06-14] MEDS: Ascorbic Acid 500mg tab GT SCH (10:11)
[2020-06-14] MEDS: Vitamin D 400 INTLU TAB ORAL SCH (10:11)
[2020-06-14] MEDS: Heparin 5000 units/ml inj SUBQ SCH ×2 (10:12→22:30)
[2020-06-14 12:00] VITALS: BP 107/77
--- NOTE | 2020-06-14 15:52 | Surgery Progress Note ---
Surgery Progress Note Subjective Additional Comments wbc 11.7 no n/v comfortable appearing Objective Last 24 Hour Vital Signs Date Time Temp Pulse Resp B/P (MAP) Pulse Ox O2 Delivery O2 Flow Rate FiO2 06/14/20 12:00 76 06/14/20 12:00 99.1 86 18 107/77 (87) 98 06/14/20 09:00 Nasal Cannula 2.0 06/14/20 08:00 98.1 84 18 123/63 (83) 93 06/14/20 08:00 78 06/14/20 04:00 84 06/14/20 04:00 97.6 74 20 120/63 (82) 96 06/14/20 00:00 97.7 80 20 126/67 (86) 96 06/13/20 21:00 Nasal Cannula 2.0 06/13/20 20:00 77 06/13/20 20:00 97.5 76 20 128/67 (87) 96 06/13/20 16:00 98.6 80 20 129/75 (93) 94 06/13/20 16:00 92 I&O Intake and Output 06/13/20 06/14/20 18:59 06:59 Output Total 600 ml 800 ml Balance -600 ml -800 ml Output Urine Total 600 ml 800 ml # Voids 1 # Bowel Movements 1 1 Dressing: saturated Cardiovascular: RSR Respiratory: decreased breath sounds Abdomen: soft, flat, non-tender, present bowel sounds, non-distended Extremities: no edema, no tenderness, no cyanosis Laboratory Tests Test 06/13/20 16:08 06/13/20 17:30 06/13/20 20:48 06/14/20 06:30 POC Whole Blood Glucose 81 MG/DL (74-106) 102 MG/DL (74-106) Pending Vancomycin Level Trough 1.9 ug/mL (5.0-12.0) L Test 06/14/20 06:50 06/14/20 12:12 White Blood Count 11.7 K/UL (4.8-10.8) H Red Blood Count 4.25 M/UL (4.20-5.40) Hemoglobin 12.4 G/DL (12.0-16.0) Hematocrit 36.0 % (37.0-47.0) L Mean Corpuscular Volume 85 FL (80-99) Mean Corpuscular Hemoglobin 29.2 PG (27.0-31.0) Mean Corpuscular Hemoglobin Concent 34.5 G/DL (32.0-36.0) Red Cell Distribution Width 14.6 % (11.6-14.8) Platelet Count 271 K/UL (150-450) Mean Platelet Volume 9.7 FL (6.5-10.1) Neutrophils (%) (Auto) 74.3 % (45.0-75.0) Lymphocytes (%) (Auto) 15.5 % (20.0-45.0) L Monocytes (%) (Auto) 7.0 % (1.0-10.0) Eosinophils (%) (Auto) 2.2 % (0.0-3.0) Basophils (%) (Auto) 0.9 % (0.0-2.0) Sodium Level 139 MMOL/L (136-145) Potassium Level 3.8 MMOL/L (3.5-5.1) Chloride Level 104 MMOL/L (98-107) Carbon Dioxide Level 26 MMOL/L (21-32) Anion Gap 9 mmol/L (5-15) Blood Urea Nitrogen 9 mg/dL (7-18) Creatinine 0.4 MG/DL (0.55-1.30) L Estimat Glomerular Filtration Rate > 60 mL/min (>60) Glucose Level 95 MG/DL (74-106) Calcium Level 8.8 MG/DL (8.5-10.1) POC Whole Blood Glucose 103 MG/DL (74-106) Plan Problems: (1) Malnutrition Assessment & Plan: Needs based on underweight, DM 35.5kg 30-40 kcals/kg 7912-8032 total kcals 1.25-2 g protein/kg 44-71 g total protein 25-35ml/kcal mL/kg [phone] total fluid mLs NUTRITION DIAGNOSIS: Swallowing difficulty R/T dysphagia as evidenced by pt is Gtube dependent. ENTERAL NUTRITION RECOMMENDATIONS: Glucerna 1.2 @50ml x24 hrs to provide 1200ml, 1440 kcal, 72g pro, 966ml free H2O - As able rec carb control formula for h/o DM. - Start @30ml/hr for 6 hrs, advance as tolerated 10ml/hr q4-6 hrs to goal. - Flush per MD/ HOB over 30 degrees ADDITIONAL RECOMMENDATIONS: - Per SNF: 5'3" and 78lbs/35.45kg. - Check lytes daily, replete as needed - A1c for eval of glycemic control - Wound care: advanced per RN, f/up with WC RN. Add LINA BID w/ GT, Vit C 250mg BID (2) Decubitus skin ulcer Assessment & Plan: This is an emaciated pt whom presented on admission with Multiple Pressure Injuries. Unstageable Pressure Injury Sacrum (L)11cm x (W)10.5cm. Base of wound is 90% necrotic, surrounding 10% moist, erythematous borders. Edges adherent to base of wound. No odor or exudate noted. Unstageable Pressure Injury L trochanter(L)3.5cm x (W)5.5cm. Base of wound is 95% necrotic, 5% surrounding borders arleen. Edges adherent to base of wound. No odor or exudate noted.Periwound is pale. Non-Blanchable erythema without induration L Ischium. Non-Blanchable erythema without induration bony prominences of L Hip/L Trochanter/L Ischial tuberosity. DTPI L Heel(L)2.5cmx(W)2cm.Base of Pressure Injury is fluctuant, Maroon in colour with surrounding non-blanchable erythema. Non-Blanchable erythema without induration L Hallux (L)1cm x (W)2cm. DTPI R Heel (L)6cm x (W)8cm.Base of Pressure Injury is fluctuant and maroon in colour. Edges are adherent to base of Pressure Injury. Unstageable Pressure Injury dorsal R 1st metatarsal(L)0.8cm x (W)0.6cm.Base of wound is 100% necrotic with marginal erythema along borders . Edges adherent to base of wound.. Non-Blanchable erythema without induration distal/lateral R foot (L)1.5cm x (W)1.5cm. Non-Blanchable erythema without induration R Hallux. Tx.Plan: Cleanse Sacral wound with Saline. Apply Therahoney. Apply Moisture Barrier Paste periwound. Cover with Optifoam drsg. Change every 3 days and prn. Cleanse L Trochanteric wound with Saline.Apply Therhaoney.Apply Moisture Barrier paste Periwound. Cover with Optifoam drsg. Change every 3 days and prn. Apply Moisture Barrier Paste to R and L ischium. Cover each site with Optifoam drsg. Change every 3 days and prn. Cover R hip /R Trochanter with Optifoam drsgs. Change every 7 days and prn. Apply Cavilon Skin Barrier to R heel , R 1st metatarsal,R hallux, Distal /Lateral R foot. Cover each Pressure Injury with Optifoam drsg. Change every 7 days and prn. Apply Cavilon Skin Barrier o L Heel , L Hallux, Distal lateral L Foot . Cover each Pressure Injury with Optifoam drsg. Change every 7 days and prn. Reposition at least every 2hours or as tolerated. Off-load heels with Pillow. APM/SOLOMON Mattress Overlay. (3) UTI (urinary tract infection) (4) Pneumonia (5) Sepsis Assessment & Plan: leukocytosis lactic acidosis malnutrition underweight bmi 13 micro noted on abx as per ID cont abx wounds unlikely etiology will follow with local care and evaluation to ensure thank you There is a slight degree of image degradation due to motion artifact. The right upper lobe is largely clear following may be some interstitial septal thickening in the apex. The right middle lobe is clear. The right lower lobe demonstrates some atelectasis at the right lung base. There is also a focal 6 mm nodular opacity, image 50 series 5. There is a vague mosaic attenuation pattern. Left upper lobe demonstrates scattered areas of mosaic attenuation superiorly image 10 of series 5 demonstrates a 3 mm left upper lobe nodule.. Irregular consolidative opacities are seen in the inferior left upper lobe. More extensive consolidation in a patchy and irregular distribution are seen in the left lower lobe. There is a small left pleural effusion. The heart is upper limits of normal in size. The ascending thoracic aorta is mildly ectatic. No mediastinal or hilar mass or adenopathy. Unremarkable. No axillary or chest wall mass or adenopathy demonstrated. The bones are unremarkable except for minimal degenerative spondylosis changes and slight anterior bowing of the sternum. The included lung bases demonstrate a gastrostomy which appears well-positioned. There is trace ascites Impression: Opacities in the left lower lobe and also to a lesser extent in the left upper lobe and minimally in the right lower lobe. Appearance is consistent with consolidation rather than mass. Most likely represents pneumonia, appearance nonspecific as regards etiology. Patchy pulmonary edema also possible, among other possibilities Small left pleural effusion Bilateral small nodules, as described. No further follow-up necessary if there are no risk factors for lung carcinoma. There are significant risk factors, then short interval follow-up CT in 6-12 months is recommended Trace ascites (6) PEG (percutaneous endoscopic gastrostomy) adjustment/replacement/removal Chao Ovalle Jun 14, 2020 15:51
[2020-06-14 16:00] VITALS: BP 116/67
--- NOTE | 2020-06-14 19:14 | General Progress Note ---
Subjective Constitutional: Reports: no symptoms HEENT: Reports: no symptoms Cardiovascular: Reports: no symptoms Respiratory: Reports: no symptoms Gastrointestinal/Abdominal: Reports: no symptoms Genitourinary: Reports: no symptoms Neurologic/Psychiatric: Reports: other - Somnolent Endocrine: Reports: no symptoms Allergies: Coded Allergies: ERYTHROMYCIN BASE (Verified Allergy, Unknown, 11/12/16) Objective Last 24 Hour Vital Signs Date Time Temp Pulse Resp B/P (MAP) Pulse Ox O2 Delivery O2 Flow Rate FiO2 06/14/20 16:00 98.1 85 18 116/67 (83) 95 06/14/20 12:00 76 06/14/20 12:00 99.1 86 18 107/77 (87) 98 06/14/20 09:00 Nasal Cannula 2.0 06/14/20 08:00 98.1 84 18 123/63 (83) 93 06/14/20 08:00 78 06/14/20 04:00 84 06/14/20 04:00 97.6 74 20 120/63 (82) 96 06/14/20 00:00 97.7 80 20 126/67 (86) 96 06/13/20 21:00 Nasal Cannula 2.0 06/13/20 20:00 77 06/13/20 20:00 97.5 76 20 128/67 (87) 96 Intake and Output 06/13/20 06/14/20 18:59 06:59 Output Total 600 ml 800 ml Balance -600 ml -800 ml Output Urine Total 600 ml 800 ml # Voids 1 # Bowel Movements 1 1 Laboratory Tests 06/13/20 20:48: POC Whole Blood Glucose 102 06/14/20 06:30: POC Whole Blood Glucose [Pending] 06/14/20 06:50: White Blood Count 11.7H, Red Blood Count 4.25, Hemoglobin 12.4, Hematocrit 36.0L , Mean Corpuscular Volume 85, Mean Corpuscular Hemoglobin 29.2, Mean Corpuscular Hemoglobin Concent 34.5, Red Cell Distribution Width 14.6, Platelet Count 271, Mean Platelet Volume 9.7, Neutrophils (%) (Auto) 74.3, Lymphocytes (%) (Auto) 15.5L, Monocytes (%) (Auto) 7.0, Eosinophils (%) (Auto) 2.2, Basophils (%) (Auto) 0.9, Sodium Level 139, Potassium Level 3.8, Chloride Level 104, Carbon Dioxide Level 26, Anion Gap 9, Blood Urea Nitrogen 9, Creatinine 0.4L, Estimat Glomerular Filtration Rate > 60, Glucose Level 95, Calcium Level 8.8 06/14/20 12:12: POC Whole Blood Glucose 103 06/14/20 16:09: POC Whole Blood Glucose 98 Height (Feet): 5 Height (Inches): 4.00 Weight (Pounds): 90 General Appearance: WD/WN, lethargic EENT: normal ENT inspection Neck: supple Cardiovascular: normal rate, regular rhythm, no gallop/murmur, no JVD Respiratory/Chest: no respiratory distress, no accessory muscle use, rhonchi - bilaterally Abdomen: normal bowel sounds, non tender, soft, no organomegaly, no mass Extremities: non-tender Neurologic: aphasia, other - Somnolent arousable and full immediately back to sleep Assessment/Plan Status Narrative Patient is somnolent febrile hemodynamically stable in no distress today in respiration she still on Vanco Zosyn and WBC remain in the 11,000 BMP is normal chest x-ray revealed some progression repeat laboratory tests and chest x-ray will be done in a.m. Gale Mays MD, MD Jun 14, 2020 19:14
[2020-06-14 20:00] VITALS: BP 115/62
[2020-06-15] VITALS: BP_SYST 120; BP_SYST 145; BP_DIAS 76
[2020-06-15] MEDS: Piperacillin/Tazobactam 3.375 GM in NS 110 ML IVPB SCH ×3 (02:18→17:21)
[2020-06-15 04:00] VITALS: BP 136/59
[2020-06-15] MEDS: NovoLOG Insulin Flexpen SUBQ SCH ×4 (06:30→20:00)
[2020-06-15 08:00] VITALS: BP 111/56
--- NOTE | 2020-06-15 08:35 | Infectious Diseases Prog Note ---
Assessment/Plan 69yo F with: Febrile to 100.6, SP Tachycardia Sepsis Leukocytosis to 21; imporving Hypoxia on 4L NC Pneumonia, L basilar infiltrate vs mass GPC bacteremia- contaminant R/o UTI 06/09 BCx 2/2 +Staph epi UA 20-30 WBC, UCx +E.coli (terrazas-S) COVID rapid Ag neg, PCR neg BNP 967 CXR: L basilar infiltrate vs mass MRSA nares neg 06/11 BCx NTD 06/12 CT chest : Opacities in the left lower lobe and also to a lesser extent in the left upper lobe and minimally in the right lower lobe. Appearance is consistent with consolidation rather than mass. Most likely represents pneumonia, appearance nonspecific as regards etiology. Patchy pulmonary edema a lso possible, among other possibilities. Small left pleural effusion. Bilateral small nodules, as described. 2d echo no vegetations 06/13 CXR: There is been slight improvement in left lower lobe infiltrate with no change in left upper lobe and right lung infiltrates. No new infiltrates identified. 06/15 CXR: Slight worsening of left basilar infiltrate. Cr 0.8 PMH: CAD, CVA, dementia, CHF, COPD, diabetes SNF resident Plan: Cont vanco IV #6/7 given CONS in BCx Cont Zosyn #7/7 for UTI/pna Trend WBC Monitor CBC/CMP Monitor temp curve, hemodynamics Monitor resp status D/w RN Thank you for this consult. [facility] will continue to follow. Subjective Allergies: Coded Allergies: ERYTHROMYCIN BASE (Verified Allergy, Unknown, 11/12/16) AF WBC 11.7 yestesrday, improving NAD in bed on RA Objective Last 24 Hour Vital Signs Date Time Temp Pulse Resp B/P (MAP) Pulse Ox O2 Delivery O2 Flow Rate FiO2 06/15/20 04:00 97.0 84 20 136/59 (84) 98 06/15/20 04:00 72 06/15/20 00:00 81 06/15/20 00:00 99.0 80 20 120/76 (91) 58 06/14/20 21:00 Nasal Cannula 2.0 06/14/20 20:00 82 06/14/20 20:00 97.7 88 20 115/62 (79) 98 06/14/20 16:00 98.1 85 18 116/67 (83) 95 06/14/20 16:00 79 06/14/20 12:00 76 12/6/20 12:00 99.1 86 18 107/77 (87) 98 06/14/20 09:00 Nasal Cannula 2.0 Height (Feet): 5 Height (Inches): 4.00 Weight (Pounds): 90 Gen: NAD in bed HEENT: NCAT CV: RRR Pulm: CTAB Abd: Soft, NTND, +PEG Ext: No c/c/e Neuro: Not interactive Lines: PIVs only Laboratory Tests Test 06/14/20 12:12 06/14/20 16:09 06/14/20 22:19 06/15/20 06:41 POC Whole Blood Glucose 103 MG/DL (74-106) 98 MG/DL (74-106) 117 MG/DL (74-106) H 133 MG/DL (74-106) H Current Medications Medications (Trade) Dose Ordered Sig/Alvarado Route PRN Reason Start Time Stop Time Status Last Admin Dose Admin Ascorbic Acid (Vitamin C) 500 mg DAILY GT 06/10/20 09:00 07/10/20 08:59 06/14/20 10:11 Atorvastatin Calcium (Lipitor) 10 mg BEDTIME GT 06/10/20 21:00 09/08/20 20:59 06/14/20 22:31 Dextrose (Dextrose 50%) 25 ml Q30M PRN IV Hypoglycemia 06/10/20 01:15 09/08/20 01:14 Dextrose (Dextrose 50%) 50 ml Q30M PRN IV Hypoglycemia 06/10/20 01:15 09/08/20 01:14 Heparin Sodium (Porcine) (Heparin 5000 units/ml) 5,000 units EVERY 12 HOURS SUBQ 06/10/20 09:00 07/25/20 08:59 06/14/20 22:30 Insulin Aspart (NovoLOG) BEFORE MEALS AND HS SUBQ 06/10/20 06:30 09/08/20 06:29 Lansoprazole (Prevacid) 30 mg DAILY GT 06/10/20 09:00 07/10/20 08:59 06/14/20 10:10 Levetiracetam (Keppra) 500 mg EVERY 12 HOURS GT 06/10/20 09:00 07/25/20 08:59 06/14/20 22:31 Piperacillin Sod/ Tazobactam Sod 3.375 gm/Sodium Chloride 110 ml @ 27.5 mls/hr Q8H IVPB 06/10/20 02:00 06/17/20 01:59 06/15/20 02:18 Potassium Chloride (K-Dur) 40 meq BID GT 06/10/20 09:00 09/08/20 08:59 06/14/20 17:13 Sodium Chloride 1,000 ml @ 80 mls/hr [id number] IV 06/10/20 01:30 07/10/20 01:29 06/14/20 23:47 Vancomycin HCl (Vanco pharmacy to dose) 1 ea DAILY PRN MISC Per rx protocol 06/10/20 16:00 07/10/20 15:59 Vancomycin HCl 750 mg/Sodium Chloride 275 ml @ 183.333 mls/hr Q12H IVPB 06/14/20 00:00 06/19/20 00:00 06/14/20 23:56 Vitamin D (Vitamin D) 400 intlu DAILY ORAL 06/10/20 09:00 07/10/20 08:59 06/14/20 10:11 Beth Marsh M.D. Jun 15, 2020 08:35
[2020-06-15] MEDS ORDERED: Tubing IV Secondary IV ONE (08:36)
[2020-06-15] MEDS: Vitamin D 400 INTLU TAB ORAL SCH (09:39)
[2020-06-15] MEDS: levETIRAcetam 500mg/5ml Liquid GT SCH ×2 (09:39→20:03)
[2020-06-15] MEDS: Ascorbic Acid 500mg tab GT SCH (09:39)
[2020-06-15] MEDS: Heparin 5000 units/ml inj SUBQ SCH ×2 (09:40→20:03)
--- NOTE | 2020-06-15 10:06 | Diagnostic Imaging Report ---
Procedure: XRAY Chest 1v Reason for study: Shortness of breath Comparison films: 06/13/2020. FINDINGS: A single one view chest is obtained. Vascularity is normal. There is slight worsening of left basilar infiltrate. Cardiac and mediastinal silhouette are within normal limits. CP angles are sharp. The bony thorax appear unremarkable. IMPRESSION: Slight worsening of left basilar infiltrate.
[2020-06-15 10:41] LABS: BASOPHILS % (AUTO) 0.7 % (0.0-2.0); EOSINOPHILS % (AUTO) 2.2 % (0.0-3.0); HEMATOCRIT 32.7 % (37.0-47.0); HEMOGLOBIN 11.4 G/DL (12.0-16.0); LYMPHOCYTES % (AUTO) 15.6 % (20.0-45.0); MEAN CORPUSCULAR VOLUME 83 FL (80-99); MONOCYTES % (AUTO) 7.6 % (1.0-10.0); PLATELET COUNT 336 K/UL (150-450); RED BLOOD COUNT 3.93 M/UL (4.20-5.40); RED CELL DISTRIBUTION WIDTH 15.6 % (11.6-14.8); WHITE BLOOD COUNT 10.3 K/UL (4.8-10.8)
[2020-06-15 11:32] LABS: BLOOD UREA NITROGEN 11 mg/dL (7-18); CALCIUM 8.6 MG/DL (8.5-10.1); CARBON DIOXIDE 29 MMOL/L (21-32); CREATININE 0.4 MG/DL (0.55-1.30)
[2020-06-15 11:47] LABS: CHLORIDE 102 MMOL/L (98-107); POTASSIUM 3.7 MMOL/L (3.5-5.1); SODIUM 137 MMOL/L (136-145)
[2020-06-15 12:00] VITALS: BP 115/63
[2020-06-15] MEDS: Vancomycin 750mg/NS 275ml IVPB SCH ×2 (13:34)
[2020-06-15 16:00] VITALS: BP 112/67
--- NOTE | 2020-06-15 16:31 | Surgery Progress Note ---
Surgery Progress Note Subjective Additional Comments leukocytosis resolved labs improved no n/v comfortable Objective Last 24 Hour Vital Signs Date Time Temp Pulse Resp B/P (MAP) Pulse Ox O2 Delivery O2 Flow Rate FiO2 06/15/20 12:00 97.0 81 17 115/63 (80) 98 06/15/20 12:00 84 06/15/20 09:00 Nasal Cannula 2.0 06/15/20 08:00 84 06/15/20 08:00 97.7 84 19 111/56 (74) 98 06/15/20 04:00 97.0 84 20 136/59 (84) 98 06/15/20 04:00 72 06/15/20 00:00 81 06/15/20 00:00 99.0 80 20 120/76 (91) 58 06/14/20 21:00 Nasal Cannula 2.0 06/14/20 20:00 82 06/14/20 20:00 97.7 88 20 115/62 (79) 98 I&O Intake and Output 06/14/20 06/15/20 19:00 07:00 Intake Total 1080.333 ml Output Total 700 ml 500 ml Balance -700 ml 580.333 ml IV Total 1080.333 ml Output Urine Total 700 ml 500 ml # Bowel Movements 2 Dressing: dry Wound: clean Cardiovascular: RSR Respiratory: clear Abdomen: soft, non-tender, present bowel sounds Extremities: no tenderness, no cyanosis Laboratory Tests Test 06/14/20 22:19 06/15/20 06:41 06/15/20 09:15 06/15/20 10:47 POC Whole Blood Glucose 117 MG/DL (74-106) H 133 MG/DL (74-106) H 108 MG/DL (74-106) H White Blood Count 10.3 K/UL (4.8-10.8) Red Blood Count 3.93 M/UL (4.20-5.40) L Hemoglobin 11.4 G/DL (12.0-16.0) L Hematocrit 32.7 % (37.0-47.0) L Mean Corpuscular Volume 83 FL (80-99) Mean Corpuscular Hemoglobin 29.0 PG (27.0-31.0) Mean Corpuscular Hemoglobin Concent 34.9 G/DL (32.0-36.0) Red Cell Distribution Width 15.6 % (11.6-14.8) H Platelet Count 336 K/UL (150-450) Mean Platelet Volume 8.8 FL (6.5-10.1) Neutrophils (%) (Auto) 74.0 % (45.0-75.0) Lymphocytes (%) (Auto) 15.6 % (20.0-45.0) L Monocytes (%) (Auto) 7.6 % (1.0-10.0) Eosinophils (%) (Auto) 2.2 % (0.0-3.0) Basophils (%) (Auto) 0.7 % (0.0-2.0) Sodium Level 137 MMOL/L (136-145) Potassium Level 3.7 MMOL/L (3.5-5.1) Chloride Level 102 MMOL/L (98-107) Carbon Dioxide Level 29 MMOL/L (21-32) Blood Urea Nitrogen 11 mg/dL (7-18) Creatinine 0.4 MG/DL (0.55-1.30) L Estimat Glomerular Filtration Rate > 60 mL/min (>60) Glucose Level 109 MG/DL (74-106) H Calcium Level 8.6 MG/DL (8.5-10.1) Test 06/15/20 11:40 Vancomycin Level Trough 10.0 ug/mL (5.0-12.0) Plan Problems: (1) Malnutrition Assessment & Plan: Needs based on underweight, DM 35.5kg 30-40 kcals/kg 6230-8693 total kcals 1.25-2 g protein/kg 44-71 g total protein 25-35ml/kcal mL/kg 888-1243 total fluid mLs NUTRITION DIAGNOSIS: Swallowing difficulty R/T dysphagia as evidenced by pt is Gtube dependent. ENTERAL NUTRITION RECOMMENDATIONS: Glucerna 1.2 @50ml x24 hrs to provide 1200ml, 1440 kcal, 72g pro, 966ml free H2O - As able rec carb control formula for h/o DM. - Start @30ml/hr for 6 hrs, advance as tolerated 10ml/hr q4-6 hrs to goal. - Flush per MD/ HOB over 30 degrees ADDITIONAL RECOMMENDATIONS: - Per SNF: 5'3" and 78lbs/35.45kg. - Check lytes daily, replete as needed - A1c for eval of glycemic control - Wound care: advanced per RN, f/up with WC RN. Add LINA BID w/ GT, Vit C 250mg BID (2) Decubitus skin ulcer Assessment & Plan: This is an emaciated pt whom presented on admission with Multiple Pressure Injuries. Unstageable Pressure Injury Sacrum (L)11cm x (W)10.5cm. Base of wound is 90% necrotic, surrounding 10% moist, erythematous borders. Edges adherent to base of wound. No odor or exudate noted. Unstageable Pressure Injury L trochanter(L)3.5cm x (W)5.5cm. Base of wound is 95% necrotic, 5% surrounding borders arleen. Edges adherent to base of wound. No odor or exudate noted.Periwound is pale. Non-Blanchable erythema without induration L Ischium. Non-Blanchable erythema without induration bony prominences of L Hip/L Trochanter/L Ischial tuberosity. DTPI L Heel(L)2.5cmx(W)2cm.Base of Pressure Injury is fluctuant, Maroon in colour with surrounding non-blanchable erythema. Non-Blanchable erythema without induration L Hallux (L)1cm x (W)2cm. DTPI R Heel (L)6cm x (W)8cm.Base of Pressure Injury is fluctuant and maroon in colour. Edges are adherent to base of Pressure Injury. Unstageable Pressure Injury dorsal R 1st metatarsal(L)0.8cm x (W)0.6cm.Base of wound is 100% necrotic with marginal erythema along borders . Edges adherent to base of wound.. Non-Blanchable erythema without induration distal/lateral R foot (L)1.5cm x (W)1.5cm. Non-Blanchable erythema without induration R Hallux. Tx.Plan: Cleanse Sacral wound with Saline. Apply Therahoney. Apply Moisture Barrier Paste periwound. Cover with Optifoam drsg. Change every 3 days and prn. Cleanse L Trochanteric wound with Saline.Apply Therhaoney.Apply Moisture Barrier paste Periwound. Cover with Optifoam drsg. Change every 3 days and prn. Apply Moisture Barrier Paste to R and L ischium. Cover each site with Optifoam drsg. Change every 3 days and prn. Cover R hip /R Trochanter with Optifoam drsgs. Change every 7 days and prn. Apply Cavilon Skin Barrier to R heel , R 1st metatarsal,R hallux, Distal /Lateral R foot. Cover each Pressure Injury with Optifoam drsg. Change every 7 days and prn. Apply Cavilon Skin Barrier o L Heel , L Hallux, Distal lateral L Foot . Cover each Pressure Injury with Optifoam drsg. Change every 7 days and prn. Reposition at least every 2hours or as tolerated. Off-load heels with Pillow. APM/SOLOMON Mattress Overlay. (3) UTI (urinary tract infection) (4) Pneumonia (5) Sepsis Assessment & Plan: leukocytosis lactic acidosis malnutrition underweight bmi 13 micro noted on abx as per ID cont abx wounds unlikely etiology will follow with local care and evaluation to ensure improving thank you There is a slight degree of image degradation due to motion artifact. The right upper lobe is largely clear following may be some interstitial septal thickening in the apex. The right middle lobe is clear. The right lower lobe demonstrates some atelectasis at the right lung base. There is also a focal 6 mm nodular opacity, image 50 series 5. There is a vague mosaic attenuation pattern. Left upper lobe demonstrates scattered areas of mosaic attenuation superiorly image 10 of series 5 demonstrates a 3 mm left upper lobe nodule.. Irregular consolidative opacities are seen in the inferior left upper lobe. More extensive consolidation in a patchy and irregular distribution are seen in the left lower lobe. There is a small left pleural effusion. The heart is upper limits of normal in size. The ascending thoracic aorta is mildly ectatic. No mediastinal or hilar mass or adenopathy. Unremarkable. No axillary or chest wall mass or adenopathy demonstrated. The bones are unremarkable except for minimal degenerative spondylosis changes and slight anterior bowing of the sternum. The included lung bases demonstrate a gastrostomy which appears well-positioned. There is trace ascites Impression: Opacities in the left lower lobe and also to a lesser extent in the left upper lobe and minimally in the right lower lobe. Appearance is consistent with consolidation rather than mass. Most likely represents pneumonia, appearance nonspecific as regards etiology. Patchy pulmonary edema also possible, among other possibilities Small left pleural effusion Bilateral small nodules, as described. No further follow-up necessary if there are no risk factors for lung carcinoma. There are significant risk factors, then short interval follow-up CT in 6-12 months is recommended Trace ascites (6) PEG (percutaneous endoscopic gastrostomy) adjustment/replacement/removal Chao Ovalle Jun 15, 2020 16:31
[2020-06-15 20:00] VITALS: BP 117/59
[2020-06-15] MEDS: Vancomycin 1gm/D5W 275ml IVPB SCH ×2 (23:01)
--- NOTE | 2020-06-15 23:32 | General Progress Note ---
Subjective Constitutional: Reports: no symptoms HEENT: Reports: no symptoms Cardiovascular: Reports: no symptoms Respiratory: Reports: no symptoms Gastrointestinal/Abdominal: Reports: no symptoms Genitourinary: Reports: no symptoms Neurologic/Psychiatric: Reports: no symptoms Endocrine: Reports: no symptoms Hematologic/Lymphatic: Reports: no symptoms Allergies: Coded Allergies: ERYTHROMYCIN BASE (Verified Allergy, Unknown, 11/12/16) Objective Last 24 Hour Vital Signs Date Time Temp Pulse Resp B/P (MAP) Pulse Ox O2 Delivery O2 Flow Rate FiO2 06/15/20 21:00 Nasal Cannula 2.0 06/15/20 20:00 96.9 79 18 117/59 (78) 99 06/15/20 19:06 73 06/15/20 16:00 83 06/15/20 16:00 98.7 83 17 112/67 (82) 99 06/15/20 12:00 97.0 81 17 115/63 (80) 98 06/15/20 12:00 84 06/15/20 09:00 Nasal Cannula 2.0 06/15/20 08:00 84 06/15/20 08:00 97.7 84 19 111/56 (74) 98 06/15/20 04:00 97.0 84 20 136/59 (84) 98 06/15/20 04:00 72 06/15/20 00:00 81 06/15/20 00:00 99.0 80 20 120/76 (91) 58 Intake and Output 06/14/20 06/15/20 19:00 07:00 Intake Total 1080.333 ml Output Total 700 ml 500 ml Balance -700 ml 580.333 ml IV Total 1080.333 ml Output Urine Total 700 ml 500 ml # Bowel Movements 2 Laboratory Tests 06/15/20 06:41: POC Whole Blood Glucose 133H 06/15/20 09:15: White Blood Count 10.3, Red Blood Count 3.93L, Hemoglobin 11.4L, Hematocrit 32.7L, Mean Corpuscular Volume 83, Mean Corpuscular Hemoglobin 29.0, Mean Corpuscular Hemoglobin Concent 34.9, Red Cell Distribution Width 15.6H, Platelet Count 336, Mean Platelet Volume 8.8, Neutrophils (%) (Auto) 74.0, Lymphocytes (%) (Auto) 15.6L, Monocytes (%) (Auto) 7.6, Eosinophils (%) (Auto) 2.2, Basophils (%) (Auto) 0.7, Sodium Level 137, Potassium Level 3.7, Chloride Level 102, Carbon Dioxide Level 29, Blood Urea Nitrogen 11, Creatinine 0.4L, Estimat Glomerular Filtration Rate > 60, Glucose Level 109H, Calcium Level 8.6 06/15/20 10:47: POC Whole Blood Glucose 108H 06/15/20 11:40: Vancomycin Level Trough 10.0 06/15/20 17:23: POC Whole Blood Glucose 106 06/15/20 19:54: POC Whole Blood Glucose 97 Height (Feet): 5 Height (Inches): 4.00 Weight (Pounds): 90 General Appearance: no apparent distress, lethargic EENT: normal ENT inspection Neck: non-tender, supple Cardiovascular: normal rate, regular rhythm, no gallop/murmur, no JVD Respiratory/Chest: lungs clear, normal breath sounds, no respiratory distress, no accessory muscle use, rhonchi - left Abdomen: normal bowel sounds, non tender, soft, no organomegaly, no mass Extremities: non-tender Neurologic: alert, responsive, aphasia Assessment/Plan Status Narrative Clinically patient continues to improve she is afebrile hemodynamically stable with normal O2 saturation daily she is now achieve a level of normal white count stable H&H assay negative VRE negative and Carbapenem negative continue with vancomycin piperacillin Vanco chest x-ray showed slight worsening in the left lower lobe extremity skin is Iodopen there is eye contact short attention span but still lethargic and different than the state by which she came to the hospit al for laboratory tests will be done in a.m. The Gale Royal MD, MD Jun 15, 2020 23:32
[2020-06-16] VITALS: BP 113/65
[2020-06-16] MEDS: Piperacillin/Tazobactam 3.375 GM in NS 110 ML IVPB SCH ×2 (01:11→09:10)
[2020-06-16 04:00] VITALS: BP 122/73
[2020-06-16] MEDS: NovoLOG Insulin Flexpen SUBQ SCH ×4 (05:34→21:00)
[2020-06-16 08:00] VITALS: BP 127/54
[2020-06-16] MEDS: levETIRAcetam 500mg/5ml Liquid GT SCH ×2 (08:11→20:08)
[2020-06-16] MEDS: Ascorbic Acid 500mg tab GT SCH (08:12)
[2020-06-16] MEDS: Vitamin D 400 INTLU TAB ORAL SCH (08:12)
[2020-06-16] MEDS: Heparin 5000 units/ml inj SUBQ SCH ×2 (08:13→20:10)
--- NOTE | 2020-06-16 08:16 | Infectious Diseases Prog Note ---
Assessment/Plan 69yo F with: Febrile to 100.6, SP Tachycardia Sepsis Leukocytosis to 21; imporving Hypoxia on 4L NC Pneumonia, L basilar infiltrate vs mass GPC bacteremia- contaminant R/o UTI 06/09 BCx 2/2 +Staph epi UA 20-30 WBC, UCx +E.coli (terrazas-S) COVID rapid Ag neg, PCR neg BNP 967 CXR: L basilar infiltrate vs mass MRSA nares neg 06/11 BCx NTD 06/12 CT chest : Opacities in the left lower lobe and also to a lesser extent in the left upper lobe and minimally in the right lower lobe. Appearance is consistent with consolidation rather than mass. Most likely represents pneumonia, appearance nonspecific as regards etiology. Patchy pulmonary edema a lso possible, among other possibilities. Small left pleural effusion. Bilateral small nodules, as described. 2d echo no vegetations 06/13 CXR: There is been slight improvement in left lower lobe infiltrate with no change in left upper lobe and right lung infiltrates. No new infiltrates identified. 06/15 CXR: Slight worsening of left basilar infiltrate. Cr 0.8 PMH: CAD, CVA, dementia, CHF, COPD, diabetes SNF resident Plan: Cont vanco IV #7/7 given CONS in BCx, last day of abx today Stop Zosyn #7/7 for UTI/pna Trend WBC Monitor CBC/CMP Monitor temp curve, hemodynamics Monitor resp status D/w RN Thank you for this consult. [facility] will continue to follow. Subjective Allergies: Coded Allergies: ERYTHROMYCIN BASE (Verified Allergy, Unknown, 11/12/16) AF NAD on RA Objective Last 24 Hour Vital Signs Date Time Temp Pulse Resp B/P (MAP) Pulse Ox O2 Delivery O2 Flow Rate FiO2 06/16/20 04:00 98.3 83 18 122/73 (89) 98 06/16/20 03:32 77 06/16/20 00:00 97.3 75 20 113/65 (81) 98 06/15/20 23:31 80 06/15/20 21:00 Nasal Cannula 2.0 06/15/20 20:00 96.9 79 18 117/59 (78) 99 06/15/20 19:06 73 06/15/20 16:00 83 06/15/20 16:00 98.7 83 17 112/67 (82) 99 06/15/20 12:00 97.0 81 17 115/63 (80) 98 06/15/20 12:00 84 06/15/20 09:00 Nasal Cannula 2.0 Height (Feet): 5 Height (Inches): 4.00 Weight (Pounds): 90 Gen: NAD in bed HEENT: NCAT CV: RRR Pulm: CTAB Abd: Soft, NTND, +PEG Ext: No c/c/e Neuro: Not interactive Lines: PIVs only Laboratory Tests Test 06/15/20 09:15 06/15/20 10:47 06/15/20 11:40 06/15/20 17:23 White Blood Count 10.3 K/UL (4.8-10.8) Red Blood Count 3.93 M/UL (4.20-5.40) L Hemoglobin 11.4 G/DL (12.0-16.0) L Hematocrit 32.7 % (37.0-47.0) L Mean Corpuscular Volume 83 FL (80-99) Mean Corpuscular Hemoglobin 29.0 PG (27.0-31.0) Mean Corpuscular Hemoglobin Concent 34.9 G/DL (32.0-36.0) Red Cell Distribution Width 15.6 % (11.6-14.8) H Platelet Count 336 K/UL (150-450) Mean Platelet Volume 8.8 FL (6.5-10.1) Neutrophils (%) (Auto) 74.0 % (45.0-75.0) Lymphocytes (%) (Auto) 15.6 % (20.0-45.0) L Monocytes (%) (Auto) 7.6 % (1.0-10.0) Eosinophils (%) (Auto) 2.2 % (0.0-3.0) Basophils (%) (Auto) 0.7 % (0.0-2.0) Sodium Level 137 MMOL/L (136-145) Potassium Level 3.7 MMOL/L (3.5-5.1) Chloride Level 102 MMOL/L (98-107) Carbon Dioxide Level 29 MMOL/L (21-32) Blood Urea Nitrogen 11 mg/dL (7-18) Creatinine 0.4 MG/DL (0.55-1.30) L Estimat Glomerular Filtration Rate > 60 mL/min (>60) Glucose Level 109 MG/DL (74-106) H Calcium Level 8.6 MG/DL (8.5-10.1) POC Whole Blood Glucose 108 MG/DL (74-106) H 106 MG/DL (74-106) Vancomycin Level Trough 10.0 ug/mL (5.0-12.0) Test 06/15/20 19:54 06/16/20 04:52 POC Whole Blood Glucose 97 MG/DL (74-106) 115 MG/DL (74-106) H Current Medications Medications (Trade) Dose Ordered Sig/Alvarado Route PRN Reason Start Time Stop Time Status Last Admin Dose Admin Ascorbic Acid (Vitamin C) 500 mg DAILY GT 06/10/20 09:00 07/10/20 08:59 06/16/20 08:12 Atorvastatin Calcium (Lipitor) 10 mg BEDTIME GT 06/10/20 21:00 09/08/20 20:59 06/15/20 20:03 Dextrose (Dextrose 50%) 25 ml Q30M PRN IV Hypoglycemia 06/10/20 01:15 09/08/20 01:14 Dextrose (Dextrose 50%) 50 ml Q30M PRN IV Hypoglycemia 06/10/20 01:15 09/08/20 01:14 Heparin Sodium (Porcine) (Heparin 5000 units/ml) 5,000 units EVERY 12 HOURS SUBQ 06/10/20 09:00 07/25/20 08:59 06/16/20 08:13 Insulin Aspart (NovoLOG) BEFORE MEALS AND HS SUBQ 06/10/20 06:30 09/08/20 06:29 Lansoprazole (Prevacid) 30 mg DAILY GT 06/10/20 09:00 07/10/20 08:59 06/16/20 08:12 Levetiracetam (Keppra) 500 mg EVERY 12 HOURS GT 06/10/20 09:00 07/25/20 08:59 06/16/20 08:11 Piperacillin Sod/ Tazobactam Sod 3.375 gm/Sodium Chloride 110 ml @ 27.5 mls/hr Q8H IVPB 06/10/20 02:00 06/17/20 01:59 06/16/20 01:11 Potassium Chloride (K-Dur) 40 meq BID GT 06/10/20 09:00 09/08/20 08:59 06/16/20 08:11 Sodium Chloride 1,000 ml @ 80 mls/hr [id number] IV 06/10/20 01:30 07/10/20 01:29 06/16/20 08:10 Vancomycin HCl (Vanco pharmacy to dose) 1 ea DAILY PRN MISC Per rx protocol 06/10/20 16:00 07/10/20 15:59 Vancomycin HCl 1 gm/Dextrose 275 ml @ 183.708 mls/hr Q12H IVPB 06/16/20 00:00 06/21/20 00:00 06/15/20 23:01 Vitamin D (Vitamin D) 400 intlu DAILY ORAL 06/10/20 09:00 07/10/20 08:59 06/16/20 08:12 Beth Marsh M.D. Jun 16, 2020 08:16
[2020-06-16 12:00] VITALS: BP 122/62
[2020-06-16] MEDS: Vancomycin 1gm/D5W 275ml IVPB SCH ×4 (12:51→23:32)
--- NOTE | 2020-06-16 14:37 | Surgery Progress Note ---
Surgery Progress Note Subjective Additional Comments no acute events comfortable stable no complaints Objective Last 24 Hour Vital Signs Date Time Temp Pulse Resp B/P (MAP) Pulse Ox O2 Delivery O2 Flow Rate FiO2 06/16/20 12:00 84 06/16/20 12:00 98.1 82 20 122/62 (82) 96 06/16/20 09:00 Room Air 06/16/20 08:00 79 06/16/20 08:00 97.7 88 18 127/54 (78) 98 06/16/20 04:00 98.3 83 18 122/73 (89) 98 06/16/20 03:32 77 06/16/20 00:00 97.3 75 20 113/65 (81) 98 06/15/20 23:31 80 06/15/20 21:00 Nasal Cannula 2.0 06/15/20 20:00 96.9 79 18 117/59 (78) 99 06/15/20 19:06 73 06/15/20 16:00 83 06/15/20 16:00 98.7 83 17 112/67 (82) 99 I&O Intake and Output 06/15/20 06/16/20 19:00 07:00 Intake Total 160 ml 2083.416 ml Balance 160 ml 2083.416 ml Intake Free Water 60 ml 50 ml IV Total 1433.416 ml Tube Feeding 100 ml 600 ml # Voids 2 3 # Bowel Movements 1 1 Dressing: saturated Cardiovascular: RSR Respiratory: decreased breath sounds Abdomen: non-tender, present bowel sounds Extremities: no edema, no tenderness, no cyanosis Laboratory Tests Test 06/15/20 17:23 06/15/20 19:54 06/16/20 04:52 POC Whole Blood Glucose 106 MG/DL (74-106) 97 MG/DL (74-106) 115 MG/DL (74-106) H Plan Problems: (1) Malnutrition Assessment & Plan: Needs based on underweight, DM 35.5kg 30-40 kcals/kg 2043-3370 total kcals 1.25-2 g protein/kg 44-71 g total protein 25-35ml/kcal mL/kg 888-1243 total fluid mLs NUTRITION DIAGNOSIS: Swallowing difficulty R/T dysphagia as evidenced by pt is Gtube dependent. ENTERAL NUTRITION RECOMMENDATIONS: Glucerna 1.2 @50ml x24 hrs to provide 1200ml, 1440 kcal, 72g pro, 966ml free H2O - As able rec carb control formula for h/o DM. - Start @30ml/hr for 6 hrs, advance as tolerated 10ml/hr q4-6 hrs to goal. - Flush per MD/ HOB over 30 degrees ADDITIONAL RECOMMENDATIONS: - Per SNF: 5'3" and 78lbs/35.45kg. - Check lytes daily, replete as needed - A1c for eval of glycemic control - Wound care: advanced per RN, f/up with WC RN. Add LINA BID w/ GT, Vit C 250mg BID (2) Decubitus skin ulcer Assessment & Plan: This is an emaciated pt whom presented on admission with Multiple Pressure Injuries. Unstageable Pressure Injury Sacrum (L)11cm x (W)10.5cm. Base of wound is 90% necrotic, surrounding 10% moist, erythematous borders. Edges adherent to base of wound. No odor or exudate noted. Unstageable Pressure Injury L trochanter(L)3.5cm x (W)5.5cm. Base of wound is 95% necrotic, 5% surrounding borders arleen. Edges adherent to base of wound. No odor or exudate noted.Periwound is pale. Non-Blanchable erythema without induration L Ischium. Non-Blanchable erythema without induration bony prominences of L Hip/L Trochanter/L Ischial tuberosity. DTPI L Heel(L)2.5cmx(W)2cm.Base of Pressure Injury is fluctuant, Maroon in colour with surrounding non-blanchable erythema. Non-Blanchable erythema without induration L Hallux (L)1cm x (W)2cm. DTPI R Heel (L)6cm x (W)8cm.Base of Pressure Injury is fluctuant and maroon in colour. Edges are adherent to base of Pressure Injury. Unstageable Pressure Injury dorsal R 1st metatarsal(L)0.8cm x (W)0.6cm.Base of wound is 100% necrotic with marginal erythema along borders . Edges adherent to base of wound.. Non-Blanchable erythema without induration distal/lateral R foot (L)1.5cm x (W)1.5cm. Non-Blanchable erythema without induration R Hallux. Tx.Plan: Cleanse Sacral wound with Saline. Apply Therahoney. Apply Moisture Barrier Paste periwound. Cover with Optifoam drsg. Change every 3 days and prn. Cleanse L Trochanteric wound with Saline.Apply Therhaoney.Apply Moisture Barrier paste Periwound. Cover with Optifoam drsg. Change every 3 days and prn. Apply Moisture Barrier Paste to R and L ischium. Cover each site with Optifoam drsg. Change every 3 days and prn. Cover R hip /R Trochanter with Optifoam drsgs. Change every 7 days and prn. Apply Cavilon Skin Barrier to R heel , R 1st metatarsal,R hallux, Distal /Lateral R foot. Cover each Pressure Injury with Optifoam drsg. Change every 7 days and prn. Apply Cavilon Skin Barrier o L Heel , L Hallux, Distal lateral L Foot . Cover each Pressure Injury with Optifoam drsg. Change every 7 days and prn. Reposition at least every 2hours or as tolerated. Off-load heels with Pillow. APM/SOLOMON Mattress Overlay. (3) UTI (urinary tract infection) (4) Pneumonia (5) Sepsis Assessment & Plan: leukocytosis lactic acidosis malnutrition underweight bmi 13 micro noted on abx as per ID cont abx wounds unlikely etiology will follow with local care and evaluation to ensure improving thank you There is a slight degree of image degradation due to motion artifact. The right upper lobe is largely clear following may be some interstitial septal thickening in the apex. The right middle lobe is clear. The right lower lobe demonstrates some atelectasis at the right lung base. There is also a focal 6 mm nodular opacity, image 50 series 5. There is a vague mosaic attenuation pattern. Left upper lobe demonstrates scattered areas of mosaic attenuation superiorly image 10 of series 5 demonstrates a 3 mm left upper lobe nodule.. Irregular consolidative opacities are seen in the inferior left upper lobe. More extensive consolidation in a patchy and irregular distribution are seen in the left lower lobe. There is a small left pleural effusion. The heart is upper limits of normal in size. The ascending thoracic aorta is mildly ectatic. No mediastinal or hilar mass or adenopathy. Unremarkable. No axillary or chest wall mass or adenopathy demonstrated. The bones are unremarkable except for minimal degenerative spondylosis changes and slight anterior bowing of the sternum. The included lung bases demonstrate a gastrostomy which appears well-positioned. There is trace ascites Impression: Opacities in the left lower lobe and also to a lesser extent in the left upper lobe and minimally in the right lower lobe. Appearance is consistent with consolidation rather than mass. Most likely represents pneumonia, appearance nonspecific as regards etiology. Patchy pulmonary edema also possible, among other possibilities Small left pleural effusion Bilateral small nodules, as described. No further follow-up necessary if there are no risk factors for lung carcinoma. There are significant risk factors, then short interval follow-up CT in 6-12 months is recommended Trace ascites (6) PEG (percutaneous endoscopic gastrostomy) adjustment/replacement/removal Chao Ovalle Jun 16, 2020 14:37
[2020-06-16 16:00] VITALS: BP 121/55
--- NOTE | 2020-06-16 19:24 | General Progress Note ---
Subjective Constitutional: Reports: no symptoms HEENT: Reports: no symptoms Cardiovascular: Reports: no symptoms Respiratory: Reports: no symptoms Gastrointestinal/Abdominal: Reports: no symptoms Genitourinary: Reports: no symptoms Neurologic/Psychiatric: Reports: no symptoms Endocrine: Reports: no symptoms Hematologic/Lymphatic: Reports: no symptoms Allergies: Coded Allergies: ERYTHROMYCIN BASE (Verified Allergy, Unknown, 11/12/16) Objective Last 24 Hour Vital Signs Date Time Temp Pulse Resp B/P (MAP) Pulse Ox O2 Delivery O2 Flow Rate FiO2 06/16/20 16:00 81 06/16/20 16:00 97.5 83 20 121/55 (77) 97 06/16/20 12:00 84 06/16/20 12:00 98.1 82 20 122/62 (82) 96 06/16/20 09:00 Room Air 06/16/20 08:00 79 06/16/20 08:00 97.7 88 18 127/54 (78) 98 06/16/20 04:00 98.3 83 18 122/73 (89) 98 06/16/20 03:32 77 06/16/20 00:00 97.3 75 20 113/65 (81) 98 06/15/20 23:31 80 06/15/20 21:00 Nasal Cannula 2.0 06/15/20 20:00 96.9 79 18 117/59 (78) 99 Intake and Output 06/15/20 06/16/20 19:00 07:00 Intake Total 160 ml 2083.416 ml Balance 160 ml 2083.416 ml Intake Free Water 60 ml 50 ml IV Total 1433.416 ml Tube Feeding 100 ml 600 ml # Voids 2 3 # Bowel Movements 1 1 Laboratory Tests 06/15/20 19:54: POC Whole Blood Glucose 97 06/16/20 04:52: POC Whole Blood Glucose 115H Height (Feet): 5 Height (Inches): 4.00 Weight (Pounds): 90 General Appearance: no apparent distress, lethargic, confused EENT: normal ENT inspection Neck: supple Cardiovascular: normal rate, regular rhythm, no gallop/murmur, no JVD Respiratory/Chest: lungs clear, normal breath sounds, no accessory muscle use, rhonchi - left Abdomen: normal bowel sounds, non tender, soft, no organomegaly, no mass Extremities: non-tender Neurologic: alert, aphasia Rima,Assa MD Jun 16, 2020 19:24
[2020-06-16 20:00] VITALS: BP 118/55
[2020-06-17] VITALS: BP 125/56
[2020-06-17 04:00] VITALS: BP 119/78
[2020-06-17] MEDS: NovoLOG Insulin Flexpen SUBQ SCH ×4 (06:08→21:00)
[2020-06-17 08:00] VITALS: BP 132/47
--- NOTE | 2020-06-17 08:18 | Infectious Diseases Prog Note ---
Assessment/Plan 69yo F with: Febrile to 100.6, SP Tachycardia Sepsis Leukocytosis to 21; imporving Hypoxia on 4L NC Pneumonia, L basilar infiltrate vs mass GPC bacteremia- contaminant R/o UTI 06/09 BCx 2/2 +Staph epi UA 20-30 WBC, UCx +E.coli (terrazas-S) COVID rapid Ag neg, PCR neg BNP 967 CXR: L basilar infiltrate vs mass MRSA nares neg 06/11 BCx NTD 06/12 CT chest : Opacities in the left lower lobe and also to a lesser extent in the left upper lobe and minimally in the right lower lobe. Appearance is consistent with consolidation rather than mass. Most likely represents pneumonia, appearance nonspecific as regards etiology. Patchy pulmonary edema a lso possible, among other possibilities. Small left pleural effusion. Bilateral small nodules, as described. 2d echo no vegetations 06/13 CXR: There is been slight improvement in left lower lobe infiltrate with no change in left upper lobe and right lung infiltrates. No new infiltrates identified. 06/15 CXR: Slight worsening of left basilar infiltrate. Cr 0.8 PMH: CAD, CVA, dementia, CHF, COPD, diabetes SNF resident Plan: Stop vanco IV #7/7 given CONS in BCx Monitor off abx OK to d/c off abx from ID standpoint 06/16 SP Zosyn #7/7 for UTI/pna Monitor CBC/CMP Monitor temp curve, hemodynamics Monitor resp status D/w RN Thank you for this consult. [facility] will continue to follow. Subjective Allergies: Coded Allergies: ERYTHROMYCIN BASE (Verified Allergy, Unknown, 11/12/16) AF NAD on RA WBC 11, overall stable Objective Last 24 Hour Vital Signs Date Time Temp Pulse Resp B/P (MAP) Pulse Ox O2 Delivery O2 Flow Rate FiO2 06/17/20 04:00 91 06/17/20 04:00 97.8 94 20 119/78 (92) 96 06/17/20 00:00 82 06/17/20 00:00 97.5 81 20 125/56 (79) 99 06/16/20 21:00 Room Air 06/16/20 20:00 97.5 86 18 118/55 (76) 97 06/16/20 20:00 82 06/16/20 16:00 81 06/16/20 16:00 97.5 83 20 121/55 (77) 97 06/16/20 12:00 84 06/16/20 12:00 98.1 82 20 122/62 (82) 96 06/16/20 09:00 Room Air Height (Feet): 5 Height (Inches): 4.00 Weight (Pounds): 90 Gen: NAD in bed HEENT: NCAT CV: RRR Pulm: CTAB Abd: Soft, NTND, +PEG Ext: No c/c/e Neuro: Not interactive Lines: PIVs only Laboratory Tests Test 06/16/20 20:31 06/17/20 05:15 POC Whole Blood Glucose Pending 117 MG/DL (74-106) H Current Medications Medications (Trade) Dose Ordered Sig/Alvarado Route PRN Reason Start Time Stop Time Status Last Admin Dose Admin Ascorbic Acid (Vitamin C) 500 mg DAILY GT 06/10/20 09:00 07/10/20 08:59 06/16/20 08:12 Atorvastatin Calcium (Lipitor) 10 mg BEDTIME GT 06/10/20 21:00 09/08/20 20:59 06/16/20 20:08 Dextrose (Dextrose 50%) 25 ml Q30M PRN IV Hypoglycemia 06/10/20 01:15 09/08/20 01:14 Dextrose (Dextrose 50%) 50 ml Q30M PRN IV Hypoglycemia 06/10/20 01:15 09/08/20 01:14 Heparin Sodium (Porcine) (Heparin 5000 units/ml) 5,000 units EVERY 12 HOURS SUBQ 06/10/20 09:00 07/25/20 08:59 06/16/20 20:10 Insulin Aspart (NovoLOG) BEFORE MEALS AND HS SUBQ 06/10/20 06:30 09/08/20 06:29 Lansoprazole (Prevacid) 30 mg DAILY GT 06/10/20 09:00 07/10/20 08:59 06/16/20 08:12 Levetiracetam (Keppra) 500 mg EVERY 12 HOURS GT 06/10/20 09:00 07/25/20 08:59 06/16/20 20:08 Potassium Chloride (K-Dur) 40 meq BID GT 06/10/20 09:00 09/08/20 08:59 06/16/20 17:03 Sodium Chloride 1,000 ml @ 80 mls/hr [id number] IV 06/10/20 01:30 07/10/20 01:29 06/16/20 20:08 Vancomycin HCl (Vanco pharmacy to dose) 1 ea DAILY PRN MISC Per rx protocol 06/10/20 16:00 07/10/20 15:59 Vancomycin HCl 1 gm/Dextrose 275 ml @ 183.708 mls/hr Q12H IVPB 06/16/20 00:00 06/21/20 00:00 06/16/20 23:32 Vitamin D (Vitamin D) 400 intlu DAILY ORAL 06/10/20 09:00 07/10/20 08:59 06/16/20 08:12 Beth Marsh M.D. Jun 17, 2020 08:18
[2020-06-17] MEDS: Ascorbic Acid 500mg tab GT SCH (08:47)
[2020-06-17] MEDS: levETIRAcetam 500mg/5ml Liquid GT SCH ×2 (08:47→21:00)
[2020-06-17] MEDS: Vitamin D 400 INTLU TAB ORAL SCH (08:47)
[2020-06-17] MEDS: Heparin 5000 units/ml inj SUBQ SCH ×2 (08:49→21:00)
[2020-06-17 09:05] LABS: BASOPHILS % (AUTO) 0.6 % (0.0-2.0); EOSINOPHILS % (AUTO) 1.2 % (0.0-3.0); HEMATOCRIT 32.6 % (37.0-47.0); HEMOGLOBIN 11.1 G/DL (12.0-16.0); LYMPHOCYTES % (AUTO) 17.5 % (20.0-45.0); MEAN CORPUSCULAR VOLUME 84 FL (80-99); MONOCYTES % (AUTO) 6.4 % (1.0-10.0); NEUTROPHILS % (AUTO) 74.3 % (45.0-75.0); PLATELET COUNT 387 K/UL (150-450); RED BLOOD COUNT 3.88 M/UL (4.20-5.40); RED CELL DISTRIBUTION WIDTH 15.8 % (11.6-14.8); WHITE BLOOD COUNT 11.9 K/UL (4.8-10.8)
[2020-06-17 09:09] LABS: ALANINE AMINOTRANSFERASE 50 U/L (12-78); ALBUMIN 2.3 G/DL (3.4-5.0); ALBUMIN/GLOBULIN RATIO 0.5 (1.0-2.7); ALKALINE PHOSPHATASE 95 U/L (46-116); ANION GAP 6 mmol/L (5-15); ASPARTATE AMINO TRANSFERASE 43 U/L (15-37); BILIRUBIN,TOTAL 0.2 MG/DL (0.2-1.0); BLOOD UREA NITROGEN 13 mg/dL (7-18); CALCIUM 8.8 MG/DL (8.5-10.1); CARBON DIOXIDE 27 MMOL/L (21-32); CHLORIDE 104 MMOL/L (98-107); CREATININE 0.3 MG/DL (0.55-1.30); POTASSIUM 4.1 MMOL/L (3.5-5.1); SODIUM 137 MMOL/L (136-145)
[2020-06-17 12:00] VITALS: BP 117/72
[2020-06-17 16:00] VITALS: BP 105/67
--- NOTE | 2020-06-17 17:06 | Surgery Progress Note ---
Surgery Progress Note Subjective Additional Comments no acute events comfortable wbc 11k exam stable Objective Last 24 Hour Vital Signs Date Time Temp Pulse Resp B/P (MAP) Pulse Ox O2 Delivery O2 Flow Rate FiO2 06/17/20 16:00 91 06/17/20 16:00 97.9 86 20 105/67 (80) 96 06/17/20 12:00 89 06/17/20 12:00 97.9 89 20 117/72 (87) 95 06/17/20 09:00 Room Air 06/17/20 08:00 97 06/17/20 08:00 97.3 97 20 132/47 (75) 95 06/17/20 04:00 91 06/17/20 04:00 97.8 94 20 119/78 (92) 96 06/17/20 00:00 82 06/17/20 00:00 97.5 81 20 125/56 (79) 99 06/16/20 21:00 Room Air 06/16/20 20:00 97.5 86 18 118/55 (76) 97 06/16/20 20:00 82 I&O Intake and Output 06/16/20 06/17/20 19:00 07:00 Intake Total 550 ml 50 ml Balance 550 ml 50 ml Tube Feeding 550 ml 50 ml # Voids 3 Cardiovascular: RSR Respiratory: decreased breath sounds Abdomen: non-tender, present bowel sounds Extremities: no edema, no tenderness, no cyanosis Laboratory Tests Test 06/16/20 20:31 06/17/20 05:15 06/17/20 07:50 POC Whole Blood Glucose Pending 117 MG/DL (74-106) H White Blood Count 11.9 K/UL (4.8-10.8) H Red Blood Count 3.88 M/UL (4.20-5.40) L Hemoglobin 11.1 G/DL (12.0-16.0) L Hematocrit 32.6 % (37.0-47.0) L Mean Corpuscular Volume 84 FL (80-99) Mean Corpuscular Hemoglobin 28.5 PG (27.0-31.0) Mean Corpuscular Hemoglobin Concent 34.0 G/DL (32.0-36.0) Red Cell Distribution Width 15.8 % (11.6-14.8) H Platelet Count 387 K/UL (150-450) Mean Platelet Volume 8.1 FL (6.5-10.1) Neutrophils (%) (Auto) 74.3 % (45.0-75.0) Lymphocytes (%) (Auto) 17.5 % (20.0-45.0) L Monocytes (%) (Auto) 6.4 % (1.0-10.0) Eosinophils (%) (Auto) 1.2 % (0.0-3.0) Basophils (%) (Auto) 0.6 % (0.0-2.0) Sodium Level 137 MMOL/L (136-145) Potassium Level 4.1 MMOL/L (3.5-5.1) Chloride Level 104 MMOL/L (98-107) Carbon Dioxide Level 27 MMOL/L (21-32) Anion Gap 6 mmol/L (5-15) Blood Urea Nitrogen 13 mg/dL (7-18) Creatinine 0.3 MG/DL (0.55-1.30) L Estimat Glomerular Filtration Rate > 60 mL/min (>60) Glucose Level 114 MG/DL (74-106) H Calcium Level 8.8 MG/DL (8.5-10.1) Total Bilirubin 0.2 MG/DL (0.2-1.0) Aspartate Amino Transf (AST/SGOT) 43 U/L (15-37) H Alanine Aminotransferase (ALT/SGPT) 50 U/L (12-78) Alkaline Phosphatase 95 U/L (46-116) Total Protein 7.0 G/DL (6.4-8.2) Albumin 2.3 G/DL (3.4-5.0) L Globulin 4.7 g/dL Albumin/Globulin Ratio 0.5 (1.0-2.7) L Plan Problems: (1) Malnutrition Assessment & Plan: Needs based on underweight, DM 35.5kg 30-40 kcals/kg 3096-7520 total kcals 1.25-2 g protein/kg 44-71 g total protein 25-35ml/kcal mL/kg [phone] total fluid mLs NUTRITION DIAGNOSIS: Swallowing difficulty R/T dysphagia as evidenced by pt is Gtube dependent. ENTERAL NUTRITION RECOMMENDATIONS: Glucerna 1.2 @50ml x24 hrs to provide 1200ml, 1440 kcal, 72g pro, 966ml free H2O - As able rec carb control formula for h/o DM. - Start @30ml/hr for 6 hrs, advance as tolerated 10ml/hr q4-6 hrs to goal. - Flush per MD/ HOB over 30 degrees ADDITIONAL RECOMMENDATIONS: - Per SNF: 5'3" and 78lbs/35.45kg. - Check lytes daily, replete as needed - A1c for eval of glycemic control - Wound care: advanced per RN, f/up with WC RN. Add LINA BID w/ GT, Vit C 250mg BID (2) Decubitus skin ulcer Assessment & Plan: This is an emaciated pt whom presented on admission with Multiple Pressure Injuries. Unstageable Pressure Injury Sacrum (L)11cm x (W)10.5cm. Base of wound is 90% necrotic, surrounding 10% moist, erythematous borders. Edges adherent to base of wound. No odor or exudate noted. Unstageable Pressure Injury L trochanter(L)3.5cm x (W)5.5cm. Base of wound is 95% necrotic, 5% surrounding borders arleen. Edges adherent to base of wound. No odor or exudate noted.Periwound is pale. Non-Blanchable erythema without induration L Ischium. Non-Blanchable erythema without induration bony prominences of L Hip/L Trochanter/L Ischial tuberosity. DTPI L Heel(L)2.5cmx(W)2cm.Base of Pressure Injury is fluctuant, Maroon in colour with surrounding non-blanchable erythema. Non-Blanchable erythema without induration L Hallux (L)1cm x (W)2cm. DTPI R Heel (L)6cm x (W)8cm.Base of Pressure Injury is fluctuant and maroon in colour. Edges are adherent to base of Pressure Injury. Unstageable Pressure Injury dorsal R 1st metatarsal(L)0.8cm x (W)0.6cm.Base of wound is 100% necrotic with marginal erythema along borders . Edges adherent to base of wound.. Non-Blanchable erythema without induration distal/lateral R foot (L)1.5cm x (W)1.5cm. Non-Blanchable erythema without induration R Hallux. Tx.Plan: Cleanse Sacral wound with Saline. Apply Therahoney. Apply Moisture Barrier Paste periwound. Cover with Optifoam drsg. Change every 3 days and prn. Cleanse L Trochanteric wound with Saline.Apply Therhaoney.Apply Moisture Barrier paste Periwound. Cover with Optifoam drsg. Change every 3 days and prn. Apply Moisture Barrier Paste to R and L ischium. Cover each site with Optifoam drsg. Change every 3 days and prn. Cover R hip /R Trochanter with Optifoam drsgs. Change every 7 days and prn. Apply Cavilon Skin Barrier to R heel , R 1st metatarsal,R hallux, Distal /Lateral R foot. Cover each Pressure Injury with Optifoam drsg. Change every 7 days and prn. Apply Cavilon Skin Barrier o L Heel , L Hallux, Distal lateral L Foot . Cover each Pressure Injury with Optifoam drsg. Change every 7 days and prn. Reposition at least every 2hours or as tolerated. Off-load heels with Pillow. APM/SOLOMON Mattress Overlay. (3) UTI (urinary tract infection) (4) Pneumonia (5) Sepsis Assessment & Plan: leukocytosis lactic acidosis malnutrition underweight bmi 13 micro noted on abx as per ID cont abx wounds unlikely etiology will follow with local care and evaluation to ensure improving thank you There is a slight degree of image degradation due to motion artifact. The right upper lobe is largely clear following may be some interstitial septal thickening in the apex. The right middle lobe is clear. The right lower lobe demonstrates some atelectasis at the right lung base. There is also a focal 6 mm nodular opacity, image 50 series 5. There is a vague mosaic attenuation pattern. Left upper lobe demonstrates scattered areas of mosaic attenuation superiorly image 10 of series 5 demonstrates a 3 mm left upper lobe nodule.. Irregular consolidative opacities are seen in the inferior left upper lobe. More extensive consolidation in a patchy and irregular distribution are seen in the left lower lobe. There is a small left pleural effusion. The heart is upper limits of normal in size. The ascending thoracic aorta is mildly ectatic. No mediastinal or hilar mass or adenopathy. Unremarkable. No axillary or chest wall mass or adenopathy demonstrated. The bones are unremarkable except for minimal degenerative spondylosis changes and slight anterior bowing of the sternum. The included lung bases demonstrate a gastrostomy which appears well-positioned. There is trace ascites Impression: Opacities in the left lower lobe and also to a lesser extent in the left upper lobe and minimally in the right lower lobe. Appearance is consistent with consolidation rather than mass. Most likely represents pneumonia, appearance nonspecific as regards etiology. Patchy pulmonary edema also possible, among other possibilities Small left pleural effusion Bilateral small nodules, as described. No further follow-up necessary if there are no risk factors for lung carcinoma. There are significant risk factors, then short interval follow-up CT in 6-12 months is recommended Trace ascites (6) PEG (percutaneous endoscopic gastrostomy) adjustment/replacement/removal Chao Ovalle Jun 17, 2020 17:06
--- NOTE | 2020-06-17 17:07 | Diagnostic Imaging Report ---
Indication: Reason For Exam: F/U Technique: Single AP view of the chest. Comparison: Chest radiograph dated 06/15/2020; CT chest dated 06/12/2020 Findings: The cardiomediastinal silhouette is is unchanged in appearance. Redemonstration of emphysematous changes and diffuse bronchial thickening. Persistent left basilar airspace consolidation. Interval increase in interstitial opacities. No pneumothorax. Redemonstration of biapical scarring. No increasing pleural effusion. IMPRESSION: Persistent left basilar airspace consolidation and slightly worsening interstitial opacities.
[2020-06-17 20:00] VITALS: BP 124/65
[2020-06-18] VITALS: BP 126/60
--- NOTE | 2020-06-18 00:59 | General Progress Note ---
Subjective Constitutional: Reports: no symptoms HEENT: Reports: no symptoms Cardiovascular: Reports: no symptoms Respiratory: Reports: no symptoms Gastrointestinal/Abdominal: Reports: no symptoms Genitourinary: Reports: no symptoms Neurologic/Psychiatric: Reports: no symptoms Endocrine: Reports: unexplained weight loss Allergies: Coded Allergies: ERYTHROMYCIN BASE (Verified Allergy, Unknown, 11/12/16) Objective Last 24 Hour Vital Signs Date Time Temp Pulse Resp B/P (MAP) Pulse Ox O2 Delivery O2 Flow Rate FiO2 06/18/20 00:00 78 06/17/20 21:00 Room Air 06/17/20 20:00 85 06/17/20 20:00 98.4 84 20 124/65 (84) 97 06/17/20 16:00 91 06/17/20 16:00 97.9 86 20 105/67 (80) 96 06/17/20 12:00 89 06/17/20 12:00 97.9 89 20 117/72 (87) 95 06/17/20 09:00 Room Air 06/17/20 08:00 97 06/17/20 08:00 97.3 97 20 132/47 (75) 95 06/17/20 04:00 91 06/17/20 04:00 97.8 94 20 119/78 (92) 96 Intake and Output 06/17/20 06/18/20 19:00 07:00 Intake Total 886 ml Balance 886 ml Intake Oral 236 ml Tube Feeding 650 ml # Voids 40 Laboratory Tests 06/17/20 05:15: POC Whole Blood Glucose 117H 06/17/20 07:50: White Blood Count 11.9H, Red Blood Count 3.88L, Hemoglobin 11.1L, Hematocrit 32.6L, Mean Corpuscular Volume 84, Mean Corpuscular Hemoglobin 28.5, Mean Corpuscular Hemoglobin Concent 34.0, Red Cell Distribution Width 15.8H, Platelet Count 387, Mean Platelet Volume 8.1, Neutrophils (%) (Auto) 74.3, Lymphocytes (%) (Auto) 17.5L, Monocytes (%) (Auto) 6.4, Eosinophils (%) (Auto) 1.2, Basophils (%) (Auto) 0.6, Sodium Level 137, Potassium Level 4.1, Chloride Level 104, Carbon Dioxide Level 27, Anion Gap 6, Blood Urea Nitrogen 13, Creatinine 0 .3L, Estimat Glomerular Filtration Rate > 60, Glucose Level 114H, Calcium Level 8.8, Total Bilirubin 0.2, Aspartate Amino Transf (AST/SGOT) 43H, Alanine Aminotransferase (ALT/SGPT) 50, Alkaline Phosphatase 95, Total Protein 7.0, Albumin 2.3L, Globulin 4.7, Albumin/Globulin Ratio 0.5L Height (Feet): 5 Height (Inches): 4.00 Weight (Pounds): 90 General Appearance: WD/WN, lethargic EENT: normal ENT inspection Neck: non-tender, normal alignment, supple, normal inspection Cardiovascular: normal rate, regular rhythm, tachycardia Respiratory/Chest: no respiratory distress, no accessory muscle use, respiratory distress, rhonchi - left Abdomen: normal bowel sounds, non tender, soft, no organomegaly, no mass Extremities: non-tender Neurologic: alert, responsive, no Babinski Assessment/Plan Status Narrative Patient condition progressively improving vital signs are normal clear to auscultation semicomatose state she can be awakened but awake requires strong stimul 7 minutes more lethargic and the patient was in the extended care facility became clear and other symptoms symptoms are improving patient can be transferred to [facility] unit repeat laboratory tests will be done in Gale Bernal MD, MD Jun 18, 2020 00:58
[2020-06-18 04:00] VITALS: BP 112/70
[2020-06-18] MEDS: NovoLOG Insulin Flexpen SUBQ SCH ×4 (06:12→21:00)
[2020-06-18 07:32] LABS: BASOPHILS % (AUTO) 0.9 % (0.0-2.0); EOSINOPHILS % (AUTO) 1.5 % (0.0-3.0); HEMATOCRIT 33.9 % (37.0-47.0); HEMOGLOBIN 11.7 G/DL (12.0-16.0); LYMPHOCYTES % (AUTO) 17.1 % (20.0-45.0); MEAN CORPUSCULAR VOLUME 84 FL (80-99); MONOCYTES % (AUTO) 4.7 % (1.0-10.0); NEUTROPHILS % (AUTO) 75.8 % (45.0-75.0); PLATELET COUNT 422 K/UL (150-450); RED BLOOD COUNT 4.05 M/UL (4.20-5.40); RED CELL DISTRIBUTION WIDTH 15.8 % (11.6-14.8); WHITE BLOOD COUNT 12.1 K/UL (4.8-10.8)
[2020-06-18 08:00] VITALS: BP 113/66
[2020-06-18 08:17] LABS: ALANINE AMINOTRANSFERASE 76 U/L (12-78); ALBUMIN 2.4 G/DL (3.4-5.0); ALBUMIN/GLOBULIN RATIO 0.5 (1.0-2.7); ALKALINE PHOSPHATASE 98 U/L (46-116); ANION GAP 7 mmol/L (5-15); ASPARTATE AMINO TRANSFERASE 46 U/L (15-37); BILIRUBIN,TOTAL 0.1 MG/DL (0.2-1.0); BLOOD UREA NITROGEN 15 mg/dL (7-18); CALCIUM 8.8 MG/DL (8.5-10.1); CARBON DIOXIDE 26 MMOL/L (21-32); CHLORIDE 103 MMOL/L (98-107); CREATININE 0.4 MG/DL (0.55-1.30); POTASSIUM 4.1 MMOL/L (3.5-5.1); SODIUM 136 MMOL/L (136-145)
--- NOTE | 2020-06-18 08:19 | Infectious Diseases Prog Note ---
Assessment/Plan 69yo F with: Febrile to 100.6, SP Tachycardia Sepsis Leukocytosis to 21; imporving Hypoxia on 4L NC Pneumonia, L basilar infiltrate vs mass GPC bacteremia- contaminant R/o UTI 06/09 BCx 2/2 +Staph epi UA 20-30 WBC, UCx +E.coli (terrazas-S) COVID rapid Ag neg, PCR neg BNP 967 CXR: L basilar infiltrate vs mass MRSA nares neg 06/11 BCx NTD 06/12 CT chest : Opacities in the left lower lobe and also to a lesser extent in the left upper lobe and minimally in the right lower lobe. Appearance is consistent with consolidation rather than mass. Most likely represents pneumonia, appearance nonspecific as regards etiology. Patchy pulmonary edema a lso possible, among other possibilities. Small left pleural effusion. Bilateral small nodules, as described. 2d echo no vegetations 06/13 CXR: There is been slight improvement in left lower lobe infiltrate with no change in left upper lobe and right lung infiltrates. No new infiltrates identified. 06/15 CXR: Slight worsening of left basilar infiltrate. 06/17 CXR: Persistent left basilar airspace consolidation and slightly worsening interstitial opacities. Cr 0.8 PMH: CAD, CVA, dementia, CHF, COPD, diabetes SNF resident Plan: Cont to monitor off abx Trend WBC 06/17 SP vanco #7 given CONS in BCx 06/16 SP Zosyn #7/7 for UTI/pna Monitor CBC/CMP Monitor temp curve, hemodynamics Monitor resp status D/w RN Thank you for this consult. [facility] will continue to follow. Subjective Allergies: Coded Allergies: ERYTHROMYCIN BASE (Verified Allergy, Unknown, 11/12/16) AF NAD on RA WBC 12, stable Objective Last 24 Hour Vital Signs Date Time Temp Pulse Resp B/P (MAP) Pulse Ox O2 Delivery O2 Flow Rate FiO2 06/18/20 04:00 74 06/18/20 04:00 98.3 88 0 112/70 (84) 95 06/18/20 00:00 78 06/18/20 00:00 98.8 88 18 126/60 (82) 96 06/17/20 21:00 Room Air 06/17/20 20:00 85 06/17/20 20:00 98.4 84 20 124/65 (84) 97 06/17/20 16:00 91 06/17/20 16:00 97.9 86 20 105/67 (80) 96 06/17/20 12:00 89 06/17/20 12:00 97.9 89 20 117/72 (87) 95 06/17/20 09:00 Room Air Height (Feet): 5 Height (Inches): 4.00 Weight (Pounds): 90 Gen: NAD in bed HEENT: NCAT CV: RRR Pulm: CTAB Abd: Soft, NTND, +PEG Ext: No c/c/e Neuro: Not interactive Lines: PIVs only Laboratory Tests Test 06/18/20 06:06 White Blood Count 12.1 K/UL (4.8-10.8) H Red Blood Count 4.05 M/UL (4.20-5.40) L Hemoglobin 11.7 G/DL (12.0-16.0) L Hematocrit 33.9 % (37.0-47.0) L Mean Corpuscular Volume 84 FL (80-99) Mean Corpuscular Hemoglobin 29.0 PG (27.0-31.0) Mean Corpuscular Hemoglobin Concent 34.6 G/DL (32.0-36.0) Red Cell Distribution Width 15.8 % (11.6-14.8) H Platelet Count 422 K/UL (150-450) Mean Platelet Volume 7.2 FL (6.5-10.1) Neutrophils (%) (Auto) 75.8 % (45.0-75.0) H Lymphocytes (%) (Auto) 17.1 % (20.0-45.0) L Monocytes (%) (Auto) 4.7 % (1.0-10.0) Eosinophils (%) (Auto) 1.5 % (0.0-3.0) Basophils (%) (Auto) 0.9 % (0.0-2.0) Erythrocyte Sedimentation Rate Pending Sodium Level Pending Potassium Level Pending Chloride Level Pending Carbon Dioxide Level Pending Blood Urea Nitrogen Pending Creatinine Pending Estimat Glomerular Filtration Rate Pending Glucose Level Pending Calcium Level Pending Total Bilirubin Pending Aspartate Amino Transf (AST/SGOT) Pending Alanine Aminotransferase (ALT/SGPT) Pending Alkaline Phosphatase Pending C-Reactive Protein, Quantitative Pending Total Protein Pending Albumin Pending Globulin Pending Current Medications Medications (Trade) Dose Ordered Sig/Alvarado Route PRN Reason Start Time Stop Time Status Last Admin Dose Admin Ascorbic Acid (Vitamin C) 500 mg DAILY GT 06/10/20 09:00 07/10/20 08:59 06/17/20 08:47 Atorvastatin Calcium (Lipitor) 10 mg BEDTIME GT 06/10/20 21:00 09/08/20 20:59 06/17/20 21:00 Dextrose (Dextrose 50%) 25 ml Q30M PRN IV Hypoglycemia 06/10/20 01:15 09/08/20 01:14 Dextrose (Dextrose 50%) 50 ml Q30M PRN IV Hypoglycemia 06/10/20 01:15 09/08/20 01:14 Heparin Sodium (Porcine) (Heparin 5000 units/ml) 5,000 units EVERY 12 HOURS SUBQ 06/10/20 09:00 07/25/20 08:59 06/17/20 21:00 Insulin Aspart (NovoLOG) BEFORE MEALS AND HS SUBQ 06/10/20 06:30 09/08/20 06:29 Lansoprazole (Prevacid) 30 mg DAILY GT 06/10/20 09:00 07/10/20 08:59 06/17/20 08:47 Levetiracetam (Keppra) 500 mg EVERY 12 HOURS GT 06/10/20 09:00 07/25/20 08:59 06/17/20 21:00 Potassium Chloride (K-Dur) 40 meq BID GT 06/10/20 09:00 09/08/20 08:59 06/17/20 17:22 Sodium Chloride 1,000 ml @ 80 mls/hr [id number] IV 06/10/20 01:30 07/10/20 01:29 06/17/20 21:00 Vitamin D (Vitamin D) 400 intlu DAILY ORAL 06/10/20 09:00 07/10/20 08:59 06/17/20 08:47 Beth Marsh M.D. Jun 18, 2020 08:19
[2020-06-18] MEDS: Vitamin D 400 INTLU TAB ORAL SCH (09:12)
[2020-06-18] MEDS: Ascorbic Acid 500mg tab GT SCH (09:12)
[2020-06-18] MEDS: levETIRAcetam 500mg/5ml Liquid GT SCH ×2 (09:16→21:07)
[2020-06-18] MEDS: Heparin 5000 units/ml inj SUBQ SCH ×2 (09:16→21:08)
[2020-06-18 12:00] VITALS: BP 112/57
--- NOTE | 2020-06-18 14:03 | Surgery Progress Note ---
Surgery Progress Note Subjective Additional Comments worsening leukocytosis esr noted no n/v worsening cxr on abx Objective Last 24 Hour Vital Signs Date Time Temp Pulse Resp B/P (MAP) Pulse Ox O2 Delivery O2 Flow Rate FiO2 06/18/20 12:00 98.2 88 20 112/57 (75) 97 06/18/20 12:00 92 06/18/20 09:00 Room Air 06/18/20 08:00 84 06/18/20 08:00 97.5 94 20 113/66 (82) 95 06/18/20 04:00 74 06/18/20 04:00 98.3 88 0 112/70 (84) 95 06/18/20 00:00 78 06/18/20 00:00 98.8 88 18 126/60 (82) 96 06/17/20 21:00 Room Air 06/17/20 20:00 85 06/17/20 20:00 98.4 84 20 124/65 (84) 97 06/17/20 16:00 91 06/17/20 16:00 97.9 86 20 105/67 (80) 96 I&O Intake and Output 06/17/20 06/18/20 19:00 07:00 Intake Total 886 ml Output Total 900 ml Balance 886 ml -900 ml Intake Oral 236 ml Tube Feeding 650 ml Output Urine Total 900 ml # Voids 40 1 Dressing: saturated Cardiovascular: RSR Respiratory: decreased breath sounds Abdomen: soft, non-tender, present bowel sounds, non-distended, decreased bowel sounds Extremities: no edema, no tenderness, no cyanosis Laboratory Tests Test 06/18/20 06:06 06/18/20 12:05 White Blood Count 12.1 K/UL (4.8-10.8) H Red Blood Count 4.05 M/UL (4.20-5.40) L Hemoglobin 11.7 G/DL (12.0-16.0) L Hematocrit 33.9 % (37.0-47.0) L Mean Corpuscular Volume 84 FL (80-99) Mean Corpuscular Hemoglobin 29.0 PG (27.0-31.0) Mean Corpuscular Hemoglobin Concent 34.6 G/DL (32.0-36.0) Red Cell Distribution Width 15.8 % (11.6-14.8) H Platelet Count 422 K/UL (150-450) Mean Platelet Volume 7.2 FL (6.5-10.1) Neutrophils (%) (Auto) 75.8 % (45.0-75.0) H Lymphocytes (%) (Auto) 17.1 % (20.0-45.0) L Monocytes (%) (Auto) 4.7 % (1.0-10.0) Eosinophils (%) (Auto) 1.5 % (0.0-3.0) Basophils (%) (Auto) 0.9 % (0.0-2.0) Erythrocyte Sedimentation Rate 94 MM/HR (0-30) H Sodium Level 136 MMOL/L (136-145) Potassium Level 4.1 MMOL/L (3.5-5.1) Chloride Level 103 MMOL/L (98-107) Carbon Dioxide Level 26 MMOL/L (21-32) Anion Gap 7 mmol/L (5-15) Blood Urea Nitrogen 15 mg/dL (7-18) Creatinine 0.4 MG/DL (0.55-1.30) L Estimat Glomerular Filtration Rate > 60 mL/min (>60) Glucose Level 103 MG/DL (74-106) Calcium Level 8.8 MG/DL (8.5-10.1) Total Bilirubin 0.1 MG/DL (0.2-1.0) L Aspartate Amino Transf (AST/SGOT) 46 U/L (15-37) H Alanine Aminotransferase (ALT/SGPT) 76 U/L (12-78) Alkaline Phosphatase 98 U/L (46-116) C-Reactive Protein, Quantitative 1.3 mg/dL (0.00-0.90) H Total Protein 7.3 G/DL (6.4-8.2) Albumin 2.4 G/DL (3.4-5.0) L Globulin 4.9 g/dL Albumin/Globulin Ratio 0.5 (1.0-2.7) L POC Whole Blood Glucose 103 MG/DL (74-106) Plan Problems: (1) Malnutrition Assessment & Plan: Needs based on underweight, DM 35.5kg 30-40 kcals/kg 0547-6921 total kcals 1.25-2 g protein/kg 44-71 g total protein 25-35ml/kcal mL/kg [phone] total fluid mLs NUTRITION DIAGNOSIS: Swallowing difficulty R/T dysphagia as evidenced by pt is Gtube dependent. ENTERAL NUTRITION RECOMMENDATIONS: Glucerna 1.2 @50ml x24 hrs to provide 1200ml, 1440 kcal, 72g pro, 966ml free H2O - As able rec carb control formula for h/o DM. - Start @30ml/hr for 6 hrs, advance as tolerated 10ml/hr q4-6 hrs to goal. - Flush per MD/ HOB over 30 degrees ADDITIONAL RECOMMENDATIONS: - Per SNF: 5'3" and 78lbs/35.45kg. - Check lytes daily, replete as needed - A1c for eval of glycemic control - Wound care: advanced per RN, f/up with WC RN. Add LINA BID w/ GT, Vit C 250mg BID (2) Decubitus skin ulcer Assessment & Plan: This is an emaciated pt whom presented on admission with Multiple Pressure Injuries. Unstageable Pressure Injury Sacrum (L)11cm x (W)10.5cm. Base of wound is 90% necrotic, surrounding 10% moist, erythematous borders. Edges adherent to base of wound. No odor or exudate noted. Unstageable Pressure Injury L trochanter(L)3.5cm x (W)5.5cm. Base of wound is 95% necrotic, 5% surrounding borders arleen. Edges adherent to base of wound. No odor or exudate noted.Periwound is pale. Non-Blanchable erythema without induration L Ischium. Non-Blanchable erythema without induration bony prominences of L Hip/L Trochanter/L Ischial tuberosity. DTPI L Heel(L)2.5cmx(W)2cm.Base of Pressure Injury is fluctuant, Maroon in colour with surrounding non-blanchable erythema. Non-Blanchable erythema without induration L Hallux (L)1cm x (W)2cm. DTPI R Heel (L)6cm x (W)8cm.Base of Pressure Injury is fluctuant and maroon in colour. Edges are adherent to base of Pressure Injury. Unstageable Pressure Injury dorsal R 1st metatarsal(L)0.8cm x (W)0.6cm.Base of wound is 100% necrotic with marginal erythema along borders . Edges adherent to base of wound.. Non-Blanchable erythema without induration distal/lateral R foot (L)1.5cm x (W)1.5cm. Non-Blanchable erythema without induration R Hallux. Tx.Plan: Cleanse Sacral wound with Saline. Apply Therahoney. Apply Moisture Barrier Paste periwound. Cover with Optifoam drsg. Change every 3 days and prn. Cleanse L Trochanteric wound with Saline.Apply Therhaoney.Apply Moisture Barrier paste Periwound. Cover with Optifoam drsg. Change every 3 days and prn. Apply Moisture Barrier Paste to R and L ischium. Cover each site with Optifoam drsg. Change every 3 days and prn. Cover R hip /R Trochanter with Optifoam drsgs. Change every 7 days and prn. Apply Cavilon Skin Barrier to R heel , R 1st metatarsal,R hallux, Distal /Lateral R foot. Cover each Pressure Injury with Optifoam drsg. Change every 7 days and prn. Apply Cavilon Skin Barrier o L Heel , L Hallux, Distal lateral L Foot . Cover each Pressure Injury with Optifoam drsg. Change every 7 days and prn. Reposition at least every 2hours or as tolerated. Off-load heels with Pillow. APM/SOLOMON Mattress Overlay. (3) UTI (urinary tract infection) (4) Pneumonia (5) Sepsis Assessment & Plan: leukocytosis lactic acidosis malnutrition underweight bmi 13 micro noted on abx as per ID cont abx wounds unlikely etiology will follow with local care and evaluation to ensure improving thank you There is a slight degree of image degradation due to motion artifact. The right upper lobe is largely clear following may be some interstitial septal thickening in the apex. The right middle lobe is clear. The right lower lobe demonstrates some atelectasis at the right lung base. There is also a focal 6 mm nodular opacity, image 50 series 5. There is a vague mosaic attenuation pattern. Left upper lobe demonstrates scattered areas of mosaic attenuation superiorly image 10 of series 5 demonstrates a 3 mm left upper lobe nodule.. Irregular consolidative opacities are seen in the inferior left upper lobe. More extensive consolidation in a patchy and irregular distribution are seen in the left lower lobe. There is a small left pleural effusion. The heart is upper limits of normal in size. The ascending thoracic aorta is mildly ectatic. No mediastinal or hilar mass or adenopathy. Unremarkable. No axillary or chest wall mass or adenopathy demonstrated. The bones are unremarkable except for minimal degenerative spondylosis changes and slight anterior bowing of the sternum. The included lung bases demonstrate a gastrostomy which appears well-positioned. There is trace ascites Impression: Opacities in the left lower lobe and also to a lesser extent in the left upper lobe and minimally in the right lower lobe. Appearance is consistent with consolidation rather than mass. Most likely represents pneumonia, appearance nonspecific as regards etiology. Patchy pulmonary edema also possible, among other possibilities Small left pleural effusion Bilateral small nodules, as described. No further follow-up necessary if there are no risk factors for lung carcinoma. There are significant risk factors, then short interval follow-up CT in 6-12 months is recommended Trace ascites (6) PEG (percutaneous endoscopic gastrostomy) adjustment/replacement/removal Chao Ovalle Jun 18, 2020 14:03
--- NOTE | 2020-06-18 15:55 | Discharge Summary ---
Discharge Summary Discharge Summary _ This was the first admission numbness vaginal lady to [facility] because of sepsis and pneumonia and altered mental status the medical events that led to this patient to be admitted to this medical unit can be found in the H&P. In brief patient is a resident of an extended care facility where she has been in stable condition for the last several years she is known to have several chronic medical syndrome that will be described in the following Been stable on medication prior to the present admission she developed progressive decline in weight attributed to progressive dementia fever tachycardia and altered mental status was transferred to [facility] ER and was admitted stop Hospital course On admission patient underwent clinical biological and imaging studies sent revealed the patient was lethargic poorly responsive but hemodynamically relatively stable and blood pressure and tachycardia of 1 10-1 20 not respond to questions that were posed to him chest x-ray revealed bilateral pneumonia on sputum and blood and urine was sent for culture and sensitivity tarted on vancomycin and Zosyn this antibiotic regimen progressively patient WBC progressively declined report of the clear duration tachycardia and tachypnea with the office discharge she is awake alert afebrile but not responsive 12,000 and on Vanco piperacillin tazobactam completed and DC'd by the infectious disease specialist she will be [facility] where she will be seen as of 24 hours after discharge as her main medical clinical issue nutrition food and protein deprivation has dementia Gale Royal MD, MD Jun 18, 2020 15:55
[2020-06-18 16:00] VITALS: BP 122/59
[2020-06-18 20:00] VITALS: BP 137/75
[2020-06-19] VITALS: BP 132/68
[2020-06-19 04:00] VITALS: BP 115/64
[2020-06-19] MEDS: NovoLOG Insulin Flexpen SUBQ SCH ×4 (06:30→21:00)
[2020-06-19 08:00] VITALS: BP 101/52
[2020-06-19 08:03] LABS: BASOPHILS % (AUTO) 0.8 % (0.0-2.0); EOSINOPHILS % (AUTO) 1.2 % (0.0-3.0); HEMATOCRIT 36.1 % (37.0-47.0); HEMOGLOBIN 12.3 G/DL (12.0-16.0); LYMPHOCYTES % (AUTO) 16.5 % (20.0-45.0); MEAN CORPUSCULAR VOLUME 87 FL (80-99); MONOCYTES % (AUTO) 6.5 % (1.0-10.0); PLATELET COUNT 358 K/UL (150-450); RED BLOOD COUNT 4.16 M/UL (4.20-5.40); RED CELL DISTRIBUTION WIDTH 15.6 % (11.6-14.8); WHITE BLOOD COUNT 12.3 K/UL (4.8-10.8)
[2020-06-19 08:20] LABS: ALANINE AMINOTRANSFERASE 65 U/L (12-78); ALBUMIN 2.5 G/DL (3.4-5.0); ALBUMIN/GLOBULIN RATIO 0.5 (1.0-2.7); ALKALINE PHOSPHATASE 100 U/L (46-116); ANION GAP 5 mmol/L (5-15); ASPARTATE AMINO TRANSFERASE 37 U/L (15-37); BILIRUBIN,TOTAL 0.2 MG/DL (0.2-1.0); BLOOD UREA NITROGEN 16 mg/dL (7-18); CALCIUM 9.4 MG/DL (8.5-10.1); CARBON DIOXIDE 29 MMOL/L (21-32); CHLORIDE 103 MMOL/L (98-107); CREATININE 0.4 MG/DL (0.55-1.30); POTASSIUM 4.1 MMOL/L (3.5-5.1); SODIUM 137 MMOL/L (136-145)
[2020-06-19] MEDS: levETIRAcetam 500mg/5ml Liquid GT SCH ×2 (08:45→21:32)
[2020-06-19] MEDS: Ascorbic Acid 500mg tab GT SCH (08:45)
[2020-06-19] MEDS: Vitamin D 400 INTLU TAB ORAL SCH (08:45)
[2020-06-19] MEDS: Heparin 5000 units/ml inj SUBQ SCH ×2 (08:47→21:33)
[2020-06-19 12:00] VITALS: BP 104/48
--- NOTE | 2020-06-19 12:15 | Infectious Diseases Prog Note ---
Assessment/Plan 69yo F with: Febrile to 100.6, SP Tachycardia Sepsis Leukocytosis to 21; imporving Hypoxia on 4L NC Pneumonia, L basilar infiltrate vs mass GPC bacteremia- contaminant R/o UTI 06/09 BCx 2/2 +Staph epi UA 20-30 WBC, UCx +E.coli (terrazas-S) COVID rapid Ag neg, PCR neg BNP 967 CXR: L basilar infiltrate vs mass MRSA nares neg 06/11 BCx NTD 06/12 CT chest : Opacities in the left lower lobe and also to a lesser extent in the left upper lobe and minimally in the right lower lobe. Appearance is consistent with consolidation rather than mass. Most likely represents pneumonia, appearance nonspecific as regards etiology. Patchy pulmonary edema a lso possible, among other possibilities. Small left pleural effusion. Bilateral small nodules, as described. 2d echo no vegetations 06/13 CXR: There is been slight improvement in left lower lobe infiltrate with no change in left upper lobe and right lung infiltrates. No new infiltrates identified. 06/15 CXR: Slight worsening of left basilar infiltrate. 06/17 CXR: Persistent left basilar airspace consolidation and slightly worsening interstitial opacities. Cr 0.8 PMH: CAD, CVA, dementia, CHF, COPD, diabetes SNF resident Plan: Cont to monitor off abx Trend WBC Pending placement 06/17 SP vanco #7 given CONS in BCx 06/16 SP Zosyn #7/7 for UTI/pna Monitor CBC/CMP Monitor temp curve, hemodynamics Monitor resp status D/w RN Thank you for this consult. [facility] will continue to follow. Subjective Allergies: Coded Allergies: ERYTHROMYCIN BASE (Verified Allergy, Unknown, 11/12/16) AF NAD on RA WBC 12, stable Objective Last 24 Hour Vital Signs Date Time Temp Pulse Resp B/P (MAP) Pulse Ox O2 Delivery O2 Flow Rate FiO2 06/19/20 09:00 Room Air 06/19/20 08:00 97.3 80 20 101/52 (68) 94 06/19/20 04:00 97.2 85 20 115/64 (81) 92 06/19/20 00:00 97.7 82 20 132/68 (89) 95 06/18/20 21:00 Room Air 06/18/20 20:00 97.6 99 20 137/75 (95) 97 06/18/20 16:00 92 06/18/20 16:00 97.9 94 18 122/59 (80) 95 Height (Feet): 5 Height (Inches): 4.00 Weight (Pounds): 90 Gen: NAD in bed HEENT: NCAT Pulm: BL chest rise on RA Abd: Soft, NTND, +PEG Ext: No c/c/e Neuro: Not interactive Lines: PIVs only Laboratory Tests Test 06/18/20 16:15 06/18/20 21:11 06/19/20 06:13 06/19/20 11:42 POC Whole Blood Glucose 107 MG/DL (74-106) H Pending 102 MG/DL (74-106) White Blood Count 12.3 K/UL (4.8-10.8) H Red Blood Count 4.16 M/UL (4.20-5.40) L Hemoglobin 12.3 G/DL (12.0-16.0) Hematocrit 36.1 % (37.0-47.0) L Mean Corpuscular Volume 87 FL (80-99) Mean Corpuscular Hemoglobin 29.6 PG (27.0-31.0) Mean Corpuscular Hemoglobin Concent 34.1 G/DL (32.0-36.0) Red Cell Distribution Width 15.6 % (11.6-14.8) H Platelet Count 358 K/UL (150-450) Mean Platelet Volume 7.1 FL (6.5-10.1) Neutrophils (%) (Auto) 75.0 % (45.0-75.0) Lymphocytes (%) (Auto) 16.5 % (20.0-45.0) L Monocytes (%) (Auto) 6.5 % (1.0-10.0) Eosinophils (%) (Auto) 1.2 % (0.0-3.0) Basophils (%) (Auto) 0.8 % (0.0-2.0) Sodium Level 137 MMOL/L (136-145) Potassium Level 4.1 MMOL/L (3.5-5.1) Chloride Level 103 MMOL/L (98-107) Carbon Dioxide Level 29 MMOL/L (21-32) Anion Gap 5 mmol/L (5-15) Blood Urea Nitrogen 16 mg/dL (7-18) Creatinine 0.4 MG/DL (0.55-1.30) L Estimat Glomerular Filtration Rate > 60 mL/min (>60) Glucose Level 93 MG/DL (74-106) Calcium Level 9.4 MG/DL (8.5-10.1) Total Bilirubin 0.2 MG/DL (0.2-1.0) Aspartate Amino Transf (AST/SGOT) 37 U/L (15-37) Alanine Aminotransferase (ALT/SGPT) 65 U/L (12-78) Alkaline Phosphatase 100 U/L (46-116) Total Protein 7.4 G/DL (6.4-8.2) Albumin 2.5 G/DL (3.4-5.0) L Globulin 4.9 g/dL Albumin/Globulin Ratio 0.5 (1.0-2.7) L Current Medications Medications (Trade) Dose Ordered Sig/Alvarado Route PRN Reason Start Time Stop Time Status Last Admin Dose Admin Ascorbic Acid (Vitamin C) 500 mg DAILY GT 06/10/20 09:00 07/10/20 08:59 06/19/20 08:45 Atorvastatin Calcium (Lipitor) 10 mg BEDTIME GT 06/10/20 21:00 09/08/20 20:59 06/18/20 21:07 Dextrose (Dextrose 50%) 25 ml Q30M PRN IV Hypoglycemia 06/10/20 01:15 09/08/20 01:14 Dextrose (Dextrose 50%) 50 ml Q30M PRN IV Hypoglycemia 06/10/20 01:15 09/08/20 01:14 Heparin Sodium (Porcine) (Heparin 5000 units/ml) 5,000 units EVERY 12 HOURS SUBQ 06/10/20 09:00 07/25/20 08:59 06/19/20 08:47 Insulin Aspart (NovoLOG) BEFORE MEALS AND HS SUBQ 06/10/20 06:30 09/08/20 06:29 Lansoprazole (Prevacid) 30 mg DAILY GT 06/10/20 09:00 07/10/20 08:59 06/19/20 08:45 Levetiracetam (Keppra) 500 mg EVERY 12 HOURS GT 06/10/20 09:00 07/25/20 08:59 06/19/20 08:45 Potassium Chloride (K-Dur) 40 meq BID GT 06/10/20 09:00 09/08/20 08:59 06/19/20 08:46 Sodium Chloride 1,000 ml @ 40 mls/hr Q24H IV 06/10/20 01:30 07/10/20 01:29 06/19/20 02:36 Vitamin D (Vitamin D) 400 intlu DAILY ORAL 06/10/20 09:00 07/10/20 08:59 06/19/20 08:45 Beth Marsh M.D. Jun 19, 2020 12:15
[2020-06-19 16:00] VITALS: BP 102/46
--- NOTE | 2020-06-19 16:09 | General Progress Note ---
Subjective Constitutional: Reports: no symptoms, weakness, other - Lethargic HEENT: Reports: no symptoms Cardiovascular: Reports: no symptoms Respiratory: Reports: no symptoms Gastrointestinal/Abdominal: Reports: no symptoms Genitourinary: Reports: no symptoms Neurologic/Psychiatric: Reports: no symptoms Endocrine: Reports: no symptoms Hematologic/Lymphatic: Reports: no symptoms Allergies: Coded Allergies: ERYTHROMYCIN BASE (Verified Allergy, Unknown, 11/12/16) Objective Last 24 Hour Vital Signs Date Time Temp Pulse Resp B/P (MAP) Pulse Ox O2 Delivery O2 Flow Rate FiO2 06/19/20 12:00 96.6 80 18 104/48 (66) 97 06/19/20 09:00 Room Air 06/19/20 08:00 97.3 80 20 101/52 (68) 94 06/19/20 04:00 97.2 85 20 115/64 (81) 92 06/19/20 00:00 97.7 82 20 132/68 (89) 95 06/18/20 21:00 Room Air 06/18/20 20:00 97.6 99 20 137/75 (95) 97 Intake and Output 06/18/20 06/19/20 19:00 07:00 Intake Total 737.3 ml 990 ml Output Total 900 ml 750 ml Balance -162.7 ml 240 ml Free Water 60 ml IV Total 577.3 ml 440 ml Tube Feeding 100 ml 550 ml Output Urine Total 900 ml 750 ml # Voids 1 # Bowel Movements 1 1 Laboratory Tests 06/18/20 16:15: POC Whole Blood Glucose 107H 06/18/20 21:11: POC Whole Blood Glucose [Pending] 06/19/20 06:13: White Blood Count 12.3H, Red Blood Count 4.16L, Hemoglobin 12.3, Hematocrit 36.1L, Mean Corpuscular Volume 87, Mean Corpuscular Hemoglobin 29.6, Mean Shamika uscular Hemoglobin Concent 34.1, Red Cell Distribution Width 15.6H, Platelet Count 358, Mean Platelet Volume 7.1, Neutrophils (%) (Auto) 75.0, Lymphocytes (%) (Auto) 16.5L, Monocytes (%) (Auto) 6.5, Eosinophils (%) (Auto) 1.2, Basophils (%) (Auto) 0.8, Sodium Level 137, Potassium Level 4.1, Chloride Level 103, Carbon Dioxide Level 29, Anion Gap 5, Blood Urea Nitrogen 16, Creatinine 0.4L, Estimat Glomerular Filtration Rate > 60, Glucose Level 93, Calcium Level 9.4, Total Bilirubin 0.2, Aspartate Amino Transf (AST/SGOT) 37, Alanine Aminotransferase (ALT/SGPT) 65, Alkaline Phosphatase 100, Total Protein 7.4, Albumin 2.5L, Globulin 4.9, Albumin/Globulin Ratio 0.5L 06/19/20 11:42: POC Whole Blood Glucose 102 Height (Feet): 5 Height (Inches): 4.00 Weight (Pounds): 90 General Appearance: lethargic, mild distress EENT: normal ENT inspection Neck: supple Cardiovascular: normal rate, regular rhythm, no gallop/murmur, no JVD Respiratory/Chest: no respiratory distress, no accessory muscle use, rhonchi - left Abdomen: normal bowel sounds, non tender, soft, no organomegaly, no mass Extremities: non-tender Neurologic: responsive, aphasia, other - Responding to touch and audio stimuli only Assessment/Plan Status Narrative Patient is a symptomatic hemodynamically stable afebrile notes severely lethargic is inefficient cough she was refused access to the extended care facility from which she came from for the patient can be discharged she will lie in bed in position WBC of 12,000 CBC BMP chest x-ray will be done in a.m. doomed. Gale Mays MD, MD Jun 19, 2020 16:09
--- NOTE | 2020-06-19 16:11 | Surgery Progress Note ---
Surgery Progress Note Subjective Additional Comments no acute events in position labs noted comfortable no n/v wbc 12k tolerating diet Objective Last 24 Hour Vital Signs Date Time Temp Pulse Resp B/P (MAP) Pulse Ox O2 Delivery O2 Flow Rate FiO2 06/19/20 12:00 96.6 80 18 104/48 (66) 97 06/19/20 09:00 Room Air 06/19/20 08:00 97.3 80 20 101/52 (68) 94 06/19/20 04:00 97.2 85 20 115/64 (81) 92 06/19/20 00:00 97.7 82 20 132/68 (89) 95 06/18/20 21:00 Room Air 06/18/20 20:00 97.6 99 20 137/75 (95) 97 I&O Intake and Output 06/18/20 06/19/20 19:00 07:00 Intake Total 737.3 ml 990 ml Output Total 900 ml 750 ml Balance -162.7 ml 240 ml Free Water 60 ml IV Total 577.3 ml 440 ml Tube Feeding 100 ml 550 ml Output Urine Total 900 ml 750 ml # Voids 1 # Bowel Movements 1 1 Dressing: saturated Cardiovascular: RSR Respiratory: decreased breath sounds Abdomen: present bowel sounds Extremities: no tenderness, no cyanosis Laboratory Tests Test 06/18/20 16:15 06/18/20 21:11 06/19/20 06:13 06/19/20 11:42 POC Whole Blood Glucose 107 MG/DL (74-106) H Pending 102 MG/DL (74-106) White Blood Count 12.3 K/UL (4.8-10.8) H Red Blood Count 4.16 M/UL (4.20-5.40) L Hemoglobin 12.3 G/DL (12.0-16.0) Hematocrit 36.1 % (37.0-47.0) L Mean Corpuscular Volume 87 FL (80-99) Mean Corpuscular Hemoglobin 29.6 PG (27.0-31.0) Mean Corpuscular Hemoglobin Concent 34.1 G/DL (32.0-36.0) Red Cell Distribution Width 15.6 % (11.6-14.8) H Platelet Count 358 K/UL (150-450) Mean Platelet Volume 7.1 FL (6.5-10.1) Neutrophils (%) (Auto) 75.0 % (45.0-75.0) Lymphocytes (%) (Auto) 16.5 % (20.0-45.0) L Monocytes (%) (Auto) 6.5 % (1.0-10.0) Eosinophils (%) (Auto) 1.2 % (0.0-3.0) Basophils (%) (Auto) 0.8 % (0.0-2.0) Sodium Level 137 MMOL/L (136-145) Potassium Level 4.1 MMOL/L (3.5-5.1) Chloride Level 103 MMOL/L (98-107) Carbon Dioxide Level 29 MMOL/L (21-32) Anion Gap 5 mmol/L (5-15) Blood Urea Nitrogen 16 mg/dL (7-18) Creatinine 0.4 MG/DL (0.55-1.30) L Estimat Glomerular Filtration Rate > 60 mL/min (>60) Glucose Level 93 MG/DL (74-106) Calcium Level 9.4 MG/DL (8.5-10.1) Total Bilirubin 0.2 MG/DL (0.2-1.0) Aspartate Amino Transf (AST/SGOT) 37 U/L (15-37) Alanine Aminotransferase (ALT/SGPT) 65 U/L (12-78) Alkaline Phosphatase 100 U/L (46-116) Total Protein 7.4 G/DL (6.4-8.2) Albumin 2.5 G/DL (3.4-5.0) L Globulin 4.9 g/dL Albumin/Globulin Ratio 0.5 (1.0-2.7) L Plan Problems: (1) Malnutrition Assessment & Plan: Needs based on underweight, DM 35.5kg 30-40 kcals/kg 9397-1820 total kcals 1.25-2 g protein/kg 44-71 g total protein 25-35ml/kcal mL/kg [id number] total fluid mLs NUTRITION DIAGNOSIS: Swallowing difficulty R/T dysphagia as evidenced by pt is Gtube dependent. ENTERAL NUTRITION RECOMMENDATIONS: Glucerna 1.2 @50ml x24 hrs to provide 1200ml, 1440 kcal, 72g pro, 966ml free H2O - As able rec carb control formula for h/o DM. - Start @30ml/hr for 6 hrs, advance as tolerated 10ml/hr q4-6 hrs to goal. - Flush per MD/ HOB over 30 degrees ADDITIONAL RECOMMENDATIONS: - Per SNF: 5'3" and 78lbs/35.45kg. - Check lytes daily, replete as needed - A1c for eval of glycemic control - Wound care: advanced per RN, f/up with WC RN. Add LINA BID w/ GT, Vit C 250mg BID (2) Decubitus skin ulcer Assessment & Plan: This is an emaciated pt whom presented on admission with Multiple Pressure Injuries. Unstageable Pressure Injury Sacrum (L)11cm x (W)10.5cm. Base of wound is 90% necrotic, surrounding 10% moist, erythematous borders. Edges adherent to base of wound. No odor or exudate noted. Unstageable Pressure Injury L trochanter(L)3.5cm x (W)5.5cm. Base of wound is 95% necrotic, 5% surrounding borders arleen. Edges adherent to base of wound. No odor or exudate noted.Periwound is pale. Non-Blanchable erythema without induration L Ischium. Non-Blanchable erythema without induration bony prominences of L Hip/L Trochanter/L Ischial tuberosity. DTPI L Heel(L)2.5cmx(W)2cm.Base of Pressure Injury is fluctuant, Maroon in colour with surrounding non-blanchable erythema. Non-Blanchable erythema without induration L Hallux (L)1cm x (W)2cm. DTPI R Heel (L)6cm x (W)8cm.Base of Pressure Injury is fluctuant and maroon in colour. Edges are adherent to base of Pressure Injury. Unstageable Pressure Injury dorsal R 1st metatarsal(L)0.8cm x (W)0.6cm.Base of wound is 100% necrotic with marginal erythema along borders . Edges adherent to base of wound.. Non-Blanchable erythema without induration distal/lateral R foot (L)1.5cm x (W)1.5cm. Non-Blanchable erythema without induration R Hallux. Tx.Plan: Cleanse Sacral wound with Saline. Apply Therahoney. Apply Moisture Barrier Paste periwound. Cover with Optifoam drsg. Change every 3 days and prn. Cleanse L Trochanteric wound with Saline.Apply Therhaoney.Apply Moisture Barrier paste Periwound. Cover with Optifoam drsg. Change every 3 days and prn. Apply Moisture Barrier Paste to R and L ischium. Cover each site with Optifoam drsg. Change every 3 days and prn. Cover R hip /R Trochanter with Optifoam drsgs. Change every 7 days and prn. Apply Cavilon Skin Barrier to R heel , R 1st metatarsal,R hallux, Distal /Lateral R foot. Cover each Pressure Injury with Optifoam drsg. Change every 7 days and prn. Apply Cavilon Skin Barrier o L Heel , L Hallux, Distal lateral L Foot . Cover each Pressure Injury with Optifoam drsg. Change every 7 days and prn. Reposition at least every 2hours or as tolerated. Off-load heels with Pillow. APM/SOLOMON Mattress Overlay. (3) UTI (urinary tract infection) (4) Pneumonia (5) Sepsis Assessment & Plan: leukocytosis lactic acidosis malnutrition underweight bmi 13 micro noted on abx as per ID cont abx wounds unlikely etiology will follow with local care and evaluation to ensure improving thank you There is a slight degree of image degradation due to motion artifact. The right upper lobe is largely clear following may be some interstitial septal thickening in the apex. The right middle lobe is clear. The right lower lobe demonstrates some atelectasis at the right lung base. There is also a focal 6 mm nodular opacity, image 50 series 5. There is a vague mosaic attenuation pattern. Left upper lobe demonstrates scattered areas of mosaic attenuation superiorly image 10 of series 5 demonstrates a 3 mm left upper lobe nodule.. Irregular consolidative opacities are seen in the inferior left upper lobe. More extensive consolidation in a patchy and irregular distribution are seen in the left lower lobe. There is a small left pleural effusion. The heart is upper limits of normal in size. The ascending thoracic aorta is mildly ectatic. No mediastinal or hilar mass or adenopathy. Unremarkable. No axillary or chest wall mass or adenopathy demonstrated. The bones are unremarkable except for minimal degenerative spondylosis changes and slight anterior bowing of the sternum. The included lung bases demonstrate a gastrostomy which appears well-positioned. There is trace ascites Impression: Opacities in the left lower lobe and also to a lesser extent in the left upper lobe and minimally in the right lower lobe. Appearance is consistent with consolidation rather than mass. Most likely represents pneumonia, appearance nonspecific as regards etiology. Patchy pulmonary edema also possible, among other possibilities Small left pleural effusion Bilateral small nodules, as described. No further follow-up necessary if there are no risk factors for lung carcinoma. There are significant risk factors, then short interval follow-up CT in 6-12 months is recommended Trace ascites (6) PEG (percutaneous endoscopic gastrostomy) adjustment/replacement/removal Chao Ovalle Jun 19, 2020 16:11
[2020-06-19 20:00] VITALS: BP 115/72
[2020-06-20] VITALS: BP 111/57
== END 2020-06-20 01:55 | DRG 871 ==
LOC: EDBD 17:44 → EMR 18:32 → 2E 18:40 → EDBEDREQ 20:43
DX: A41.9 Sepsis, unspecified organism (principal); J18.9 Pneumonia, unspecified organism; N39.0 Urinary tract infection, site not specified; Z68.1 Body mass index [BMI] 19.9 or less, adult; J44.0 Chronic obstructive pulmonary disease with (acute) lower respiratory infection; E46 Unspecified protein-calorie malnutrition; L89.150 Pressure ulcer of sacral region, unstageable; L89.220 Pressure ulcer of left hip, unstageable; R09.02 Hypoxemia; E11.9 Type 2 diabetes mellitus without complications; F01.50 Vascular dementia, unspecified severity, without behavioral disturbance, psychotic disturbance, mood disturbance, and anxiety; I11.0 Hypertensive heart disease with heart failure; I50.9 Heart failure, unspecified; Z93.1 Gastrostomy status; R13.10 Dysphagia, unspecified
CPT/HCPCS: 36415; 71045; 71250; 80048; 80053; 80202; 81003; 82150; 82550; 82553; 82728; 82962; 83605; 83615; 83690; 83735; 83880; 84100; 84484; 85007; 85025; 85379; 85610; 85651; 85730; 86140; 87040; 87081; 87086; 87181; 93005; 93306; 93970; 96361; 96365; 99291; J1815; J7030; J8499; U0002

== ENCOUNTER 2020-07-08 19:52 | Inpatient (IN) | payer MEDICARE, MEDICAID ==
[~2020-07-08] VITALS: Ht 154.9 cm; Wt 44.9 kg
[~2020-07-08 19:52] MED LIST changes: +ABILIFY10 MG GT; +ABILIFY5 MG GT; +ACETAMINOPHEN325 M1 ORAL; +ATORVASTATIN CA20 MG GT; +CATAPRES0.1 MG GT; +DOCUSATE SODIU100 M2 GT; +DULCOLAX10 MG RC; +FLEET ENEMA133 ML RECTAL; +KEPPRA500 M4 ORAL; +LEVETIRACE500 MG/51 GT; +MILK OF MA400 MG/51 GT; +MULTIVITAMINS1 EAC8 GT; +MUPIROCIN22 GM TOPIC; +NOVOLIN R100 UNIT/1 SUBQ; +OMEPRAZOLE5 GM GT; +POTASSIUM40 MEQ/11 GT; +PRO-STAT LIQUID30 ML GT; +SANTYL TP; +SENNA8.6 M2 GT; +VITAMIN D325 MC1 GT; +ZINC SULFATE220 M1 ORAL
[2020-07-08 19:55] VITALS: BP 105/58
[2020-07-08 21:06] LABS: HEMATOCRIT 41.8 % (37.0-47.0); HEMOGLOBIN 13.6 G/DL (12.0-16.0); MEAN CORPUSCULAR VOLUME 91 FL (80-99); PLATELET COUNT 263 K/UL (150-450); RED BLOOD COUNT 4.61 M/UL (4.20-5.40); RED CELL DISTRIBUTION WIDTH 16.1 % (11.6-14.8); WHITE BLOOD COUNT 20.3 K/UL (4.8-10.8)
[2020-07-08 21:19] LABS: APPEARANCE,URINE SLIGHTLY CLOUDY; BILIRUBIN, URINE NEGATIVE (NEGATIVE); GLUCOSE, URINE (UA) NEGATIVE (NEGATIVE); KETONES,URINE 1+ (NEGATIVE); LEUKOCYTE ESTERASE ,URINE 2+ (NEGATIVE); NITRITE,URINE NEGATIVE (NEGATIVE); PH,URINE 5 (4.5-8.0); PROTEIN,URINE 3+ (NEGATIVE); UROBILINOGEN,URINE NORMAL MG/DL (0.0-1.0)
[2020-07-08 21:19] LABS: INR 1.2 (0.9-1.1)
[2020-07-08 21:20] LABS: COLOR,URINE YELLOW
[2020-07-08 21:23] VITALS: BP 94/56
[2020-07-08 21:24] LABS: ANION GAP 7 mmol/L (5-15); BLOOD UREA NITROGEN 46 mg/dL (7-18); CALCIUM 8.4 MG/DL (8.5-10.1); CARBON DIOXIDE 29 MMOL/L (21-32); CHLORIDE 112 MMOL/L (98-107); CREATININE 0.7 MG/DL (0.55-1.30); POTASSIUM 3.1 MMOL/L (3.5-5.1); SODIUM 148 MMOL/L (136-145)
[2020-07-08 21:40] LABS: ALANINE AMINOTRANSFERASE 120 U/L (12-78); ALBUMIN 1.9 G/DL (3.4-5.0); ALBUMIN/GLOBULIN RATIO 0.3 (1.0-2.7); ALKALINE PHOSPHATASE 92 U/L (46-116); ASPARTATE AMINO TRANSFERASE 67 U/L (15-37); BILIRUBIN,TOTAL 0.3 MG/DL (0.2-1.0); CKMB < 0.5 NG/ML (0.0-3.6); CREATINE KINASE 112 U/L (26-308); FERRITIN 548 NG/ML (8-388); LACTATE DEHYDROGENASE 209 U/L (81-234)
[2020-07-08] MEDS ORDERED: cefTRIAXone 1 GM in NS 55 ML IVPB ONE (22:15)
[2020-07-08 22:22] VITALS: BP 99/56
--- NOTE | 2020-07-08 22:25 | Emergency Room Report ---
History of Present Illness General Chief Complaint: Flu Like Symptoms Source: Medical Record, EMS Present Illness HPI This patient presents from a shelter facility. The patient was sent in for an elevated heart rate and respiratory rate. There is also report the patient was febrile earlier today with a temp of 102. The patient has multiple medical problems to include diabetes, CHF, failure to thrive, dementia to name a few. Patient herself is unable to give any type of history. 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 failure Hx Diabetes: Yes - Type 2 Hx Cancer: No Hx Gastrointestinal Problems: Yes Hx Neurological Problems: Yes - Generalized muscle weakness, Epilepsy Hx Epilepsy: Yes Review of Systems All Other Systems: negative except mentioned in HPI Physical Exam Vital Signs Date Time Temp Pulse Resp B/P (MAP) Pulse Ox O2 Delivery O2 Flow Rate FiO2 07/08/20 19:45 99.3 116 26 108/62 (77) 95 Nasal Cannula 2.0 Sp02 EP Interpretation: reviewed, normal General Appearance: no apparent distress, alert, GCS 15, non-toxic, cachetic Head: normocephalic, atraumatic ENT: hearing grossly normal, no angioedema Neck: normal inspection, full range of motion Respiratory: chest non-tender, lungs clear, normal breath sounds, no respiratory distress, no retraction, no accessory muscle use, speaking full sentences Cardiovascular #1: no edema, tachycardia Gastrointestinal: normal bowel sounds, non tender, soft, non-distended, no guarding, no rebound Rectal: deferred Musculoskeletal: normal inspection, back normal, normal range of motion, non- tender Neurologic: alert, motor strength/tone normal, no focal defects Psychiatric: mood/affect normal Skin: other - See RN skin exam. Lymphatic: no adenopathy Medical Decision Making Diagnostic Impression: Primary Impression: Pyelonephritis Additional Impressions: Leukocytosis Fever Tachycardia ER Course The patient is found to have pyelonephritis. She is also febrile, tachycardic and has a leukocytosis. She is given broad-spectrum antibiotics and IV fluids. The patient's laboratory work-up is also concerning for likely diagnosis of COVID-19. However, the rapid Covid test in the emergency department is negative. I suspect this is a false negative. The chest x-ray is unremarkable which is reassuring that even if the patient does have COVID-19 she does not have a serious respiratory form of it at this time. Plan for admission for IV antibiotics unless the patient improved significantly. The patient's care is turned over to Dr. Burnham. This patient was evaluated in the context of the global COVID-19 pandemic, which necessitated consideration that the patient might be at risk for infection with the [id number] virus that causes COVID-19. Institutional protocols and algorithms that pertain to the evaluation of patients at risk for COVID-19 and the state of rapid change based on information released by multiple regulatory bodies including the CDC and federal and state organizations. These policies and algorithms were followed during the patient's care in the ED. Laboratory Tests Test 07/08/20 20:40 07/08/20 21:00 White Blood Count 20.3 K/UL (4.8-10.8) H Red Blood Count 4.61 M/UL (4.20-5.40) Hemoglobin 13.6 G/DL (12.0-16.0) Hematocrit 41.8 % (37.0-47.0) Mean Corpuscular Volume 91 FL (80-99) Mean Corpuscular Hemoglobin 29.5 PG (27.0-31.0) Mean Corpuscular Hemoglobin Concent 32.5 G/DL (32.0-36.0) Red Cell Distribution Width 16.1 % (11.6-14.8) H Platelet Count 263 K/UL (150-450) Mean Platelet Volume 11.2 FL (6.5-10.1) H Neutrophils (%) (Auto) % (45.0-75.0) Lymphocytes (%) (Auto) % (20.0-45.0) Monocytes (%) (Auto) % (1.0-10.0) Eosinophils (%) (Auto) % (0.0-3.0) Basophils (%) (Auto) % (0.0-2.0) Differential Total Cells Counted 100 Neutrophils % (Manual) 87 % (45-75) H Lymphocytes % (Manual) 6 % (20-45) L Monocytes % (Manual) 4 % (1-10) Eosinophils % (Manual) 0 % (0-3) Basophils % (Manual) 0 % (0-2) Band Neutrophils 3 % (0-8) Platelet Estimate Adequate Platelet Morphology Giant Platelets Occasional Anisocytosis 1+ Prothrombin Time 12.6 SEC (9.30-11.50) H Prothrombin Time INR 1.2 (0.9-1.1) H Activated Partial Thromboplast Time 26 SEC (23-33) D-Dimer 1.57 mg/L FEU (0.00-0.49) H Sodium Level 148 MMOL/L (136-145) H Potassium Level 3.1 MMOL/L (3.5-5.1) L Chloride Level 112 MMOL/L (98-107) H Carbon Dioxide Level 29 MMOL/L (21-32) Anion Gap 7 mmol/L (5-15) Blood Urea Nitrogen 46 mg/dL (7-18) H Creatinine 0.7 MG/DL (0.55-1.30) Estimated Glomerular Filtration Rate > 60 mL/min (>60) Glucose Level 145 MG/DL (74-106) H Lactic Acid Level 1.80 mmol/L (0.4-2.0) Calcium Level 8.4 MG/DL (8.5-10.1) L Ferritin 548 NG/ML (8-388) H Total Bilirubin 0.3 MG/DL (0.2-1.0) Aspartate Amino Transferase (AST) 67 U/L (15-37) H Alanine Aminotransferase (ALT) 120 U/L (12-78) H Alkaline Phosphatase 92 U/L (46-116) Lactate Dehydrogenase 209 U/L (81-234) Total Creatine Kinase 112 U/L (26-308) Creatine Kinase MB < 0.5 NG/ML (0.0-3.6) Creatine Kinase MB Relative Index 0.4 Troponin I 0.017 ng/mL (0.000-0.056) C-Reactive Protein, Quantitative 13.3 mg/dL (0.00-0.90) H Pro-B-Type Natriuretic Peptide 804 pg/mL (0-125) H Total Protein 7.5 G/DL (6.4-8.2) Albumin 1.9 G/DL (3.4-5.0) L Globulin 5.6 g/dL Albumin/Globulin Ratio 0.3 (1.0-2.7) L Lipase 124 U/L (73-393) Urine Color Yellow Urine Appearance Slightly cloudy Urine pH 5 (4.5-8.0) Urine Specific [place] 1.020 (1.005-1.035) Urine Protein 3+ (NEGATIVE) H Urine Glucose (UA) Negative (NEGATIVE) Urine Ketones 1+ (NEGATIVE) H Urine Blood 2+ (NEGATIVE) H Urine Nitrite Negative (NEGATIVE) Urine Bilirubin Negative (NEGATIVE) Urine Urobilinogen Normal MG/DL (0.0-1.0) Urine Leukocyte Esterase 2+ (NEGATIVE) H Urine RBC 5-10 /HPF (0 - 2) H Urine WBC Tntc /HPF (0 - 2) H Urine Squamous Epithelial Cells Occasional /LPF Urine Bacteria Few /HPF (NONE) Microbiology Date/Time Source Procedure Growth Status 07/08/20 20:40 Nasopharynx SARS-CoV-2 RdRp Gene Assay - Final Complete EKG Diagnostic Results Rate: tachycardiac Rhythm: other - S.tachycardia ST Segments: other - NSST findings Rhythm Strip Diag. Results EP Interpretation: yes Rate: 90's Rhythm: NSR, no PVC's, no ectopy Chest X-Ray Diagnostic Results Chest X-Ray Diagnostic Results : Chest X-Ray Ordered: Yes # of Views/Limited/Complete: 1 View Indication: Other EP Interpretation: Yes Interpretation: no consolidation, no effusion, no pneumothorax, no acute cardiopulmonary disease Impression: No acute disease Electronically Signed by: Kristina Rosario DO Last Vital Signs Date Time Temp Pulse Resp B/P (MAP) Pulse Ox O2 Delivery O2 Flow Rate FiO2 07/08/20 22:22 98.2 104 20 99/56 97 Nasal Cannula 2.0 Status: improved Disposition: ADMITTED INPATIENT Condition: Serious Referrals: Gale Abarca MD (PCP) Kristina Rosario DO Jul 08, 2020 22:25
--- NOTE | 2020-07-08 23:04 | Emergency Room Report ---
Sepsis Event Note Evaluation Current Stage of Sepsis: Sepsis Possible Source: Genitourinary Focused Exam Allergies: Coded Allergies: ERYTHROMYCIN BASE (Verified Allergy, Unknown, 11/12/16) Date Exam Occurred: Jul 08, 2020 Time Exam Occurred: 23:04 Laboratory Studies Laboratory Tests Test 07/08/20 20:40 07/08/20 21:00 White Blood Count 20.3 K/UL (4.8-10.8) H Red Blood Count 4.61 M/UL (4.20-5.40) Hemoglobin 13.6 G/DL (12.0-16.0) Hematocrit 41.8 % (37.0-47.0) Mean Corpuscular Volume 91 FL (80-99) Mean Corpuscular Hemoglobin 29.5 PG (27.0-31.0) Mean Corpuscular Hemoglobin Concent 32.5 G/DL (32.0-36.0) Red Cell Distribution Width 16.1 % (11.6-14.8) H Platelet Count 263 K/UL (150-450) Mean Platelet Volume 11.2 FL (6.5-10.1) H Neutrophils (%) (Auto) % (45.0-75.0) Lymphocytes (%) (Auto) % (20.0-45.0) Monocytes (%) (Auto) % (1.0-10.0) Eosinophils (%) (Auto) % (0.0-3.0) Basophils (%) (Auto) % (0.0-2.0) Differential Total Cells Counted 100 Neutrophils % (Manual) 87 % (45-75) H Lymphocytes % (Manual) 6 % (20-45) L Monocytes % (Manual) 4 % (1-10) Eosinophils % (Manual) 0 % (0-3) Basophils % (Manual) 0 % (0-2) Band Neutrophils 3 % (0-8) Platelet Estimate Adequate Platelet Morphology Giant Platelets Occasional Anisocytosis 1+ Prothrombin Time 12.6 SEC (9.30-11.50) H Prothromb Time International Ratio 1.2 (0.9-1.1) H Activated Partial Thromboplast Time 26 SEC (23-33) D-Dimer 1.57 mg/L FEU (0.00-0.49) H Sodium Level 148 MMOL/L (136-145) H Potassium Level 3.1 MMOL/L (3.5-5.1) L Chloride Level 112 MMOL/L (98-107) H Carbon Dioxide Level 29 MMOL/L (21-32) Anion Gap 7 mmol/L (5-15) Blood Urea Nitrogen 46 mg/dL (7-18) H Creatinine 0.7 MG/DL (0.55-1.30) Estimat Glomerular Filtration Rate > 60 mL/min (>60) Glucose Level 145 MG/DL (74-106) H Lactic Acid Level 1.80 mmol/L (0.4-2.0) Calcium Level 8.4 MG/DL (8.5-10.1) L Ferritin 548 NG/ML (8-388) H Total Bilirubin 0.3 MG/DL (0.2-1.0) Aspartate Amino Transf (AST/SGOT) 67 U/L (15-37) H Alanine Aminotransferase (ALT/SGPT) 120 U/L (12-78) H Alkaline Phosphatase 92 U/L (46-116) Lactate Dehydrogenase 209 U/L (81-234) Total Creatine Kinase 112 U/L (26-308) Creatine Kinase MB < 0.5 NG/ML (0.0-3.6) Creatine Kinase MB Relative Index 0.4 Troponin I 0.017 ng/mL (0.000-0.056) C-Reactive Protein, Quantitative 13.3 mg/dL (0.00-0.90) H Pro-B-Type Natriuretic Peptide 804 pg/mL (0-125) H Total Protein 7.5 G/DL (6.4-8.2) Albumin 1.9 G/DL (3.4-5.0) L Globulin 5.6 g/dL Albumin/Globulin Ratio 0.3 (1.0-2.7) L Lipase 124 U/L (73-393) Urine Color Yellow Urine Appearance Slightly cloudy Urine pH 5 (4.5-8.0) Urine Specific [place] 1.020 (1.005-1.035) Urine Protein 3+ (NEGATIVE) H Urine Glucose (UA) Negative (NEGATIVE) Urine Ketones 1+ (NEGATIVE) H Urine Blood 2+ (NEGATIVE) H Urine Nitrite Negative (NEGATIVE) Urine Bilirubin Negative (NEGATIVE) Urine Urobilinogen Normal MG/DL (0.0-1.0) Urine Leukocyte Esterase 2+ (NEGATIVE) H Urine RBC 5-10 /HPF (0 - 2) H Urine WBC Tntc /HPF (0 - 2) H Urine Squamous Epithelial Cells Occasional /LPF Urine Bacteria Few /HPF (NONE) Vital Signs Last 24 Hour Vital Signs Date Time Temp Pulse Resp B/P (MAP) Pulse Ox O2 Delivery O2 Flow Rate FiO2 07/08/20 22:22 98.2 104 20 99/56 97 Nasal Cannula 2.0 07/08/20 21:23 98.2 105 16 94/56 98 Nasal Cannula 2.0 07/08/20 19:55 98.0 110 20 105/58 98 Nasal Cannula 2.0 07/08/20 19:55 110 20 Nasal Cannula 2.0 07/08/20 19:45 99.3 116 26 108/62 (77) 95 Nasal Cannula 2.0 Respiratory Exam: Clear Cardiovascular Exam: RRR Capillary Refill: Less Than 2 Seconds Peripheral Pulse: Strong Pulse Location: Radial Skin Exam: Normal Turgor Ciro Burnham MD Jul 08, 2020 23:04
[2020-07-08] MEDS ORDERED: Acetaminophen 650 MG SUPP RECTAL PRN (23:15)
[2020-07-08 23:40] VITALS: BP 93/43
[2020-07-09 00:42] VITALS: BP 113/50
[2020-07-09 04:00] VITALS: BP 93/52
[2020-07-09] MEDS: NovoLOG Insulin Flexpen SUBQ SCH ×4 (06:30→21:00)
--- NOTE | 2020-07-09 06:38 | History & Physical ---
History of Present Illness General Reason for Hospitalization: Flu Like Symptoms Present Illness Allergies: Coded Allergies: ERYTHROMYCIN BASE (Verified Allergy, Unknown, 11/12/16) COVID-19 Screening Contact w/high risk pt: No Experienced COVID-19 symptoms?: Yes Coronavirus symptoms experienc: Fever (T>100.4F or >38C) Medication History Scheduled Ascorbic Acid* (Vitamin C*), 500 MG ORAL DAILY, (Reported) Atorvastatin Calcium* (Lipitor*), 10 MG GT BEDTIME, (Reported) Benztropine Mesylate* (Benztropine Mesylate*), 1 MG GT DAILY, (Reported) Cholecalciferol (Vitamin D3) (Vitamin D3*), 125 MCG GT DAILY, (Reported) Docusate Sodium (Docusate Sodium), 100 MG GT DAILY, (Reported) Levetiracetam (Levetiracetam), 500 MG GT BID, (Reported) Multivitamin With Minerals (Multivitamins With Minerals*), 1 TAB GT DAILY, (Reported) Omeprazole (Omeprazole), 20 MG GT EVERY MORNING, (Reported) Potassium Chloride (Potassium Chloride), 40 MEQ GT BID, (Reported) Scheduled PRN Acetaminophen* (Acetaminophen 325MG Tablet*), 650 MG ORAL Q4H PRN for MILD PAIN/TEMP > 101F, (Reported) Bisacodyl (Dulcolax), 10 MG RC DAILY PRN for Constipation, (Reported) Clonidine Hcl* (Catapres*), 0.1 MG GT Q8HR PRN for HYPERTENSION, (Reported) Discontinued Medications Amino Acids/Protein Hydrolys (Pro-Stat Liquid), 30 ML GT DAILY, (Reported) Discontinued Reason: MD discontinued med Aripiprazole* (Abilify*), 5 MG GT DAILY, (Reported) Discontinued Reason: MD discontinued med Insulin Regular, Human* (Novolin R*), 0 SUBQ ACHS, (Reported) Discontinued Reason: MD discontinued med Magnesium Hydroxide* (Milk Of Magnesia*), 30 ML GT QHS PRN for Constipation, (Reported) Discontinued Reason: MD discontinued med Mupirocin* (Mupirocin*), 1 APPLIC TOPIC DAILY, (Reported) Discontinued Reason: MD discontinued med Na Phos,M-B/Na Phos,Di-Ba* (Fleet Enema*), 133 ML RECTAL EVERY OTHER DAY PRN for Constipation, (Reported) Discontinued Reason: MD discontinued med Sennosides (Senna), 17.2 MG GT QHS, (Reported) Discontinued Reason: MD discontinued med Zinc Sulfate (Zinc Sulfate*), 220 MG ORAL DAILY, (Reported) Discontinued Reason: MD discontinued med [Santyl], GM TP DAILY, (Reported) Discontinued Reason: MD discontinued med Patient History Healthcare decision maker Resuscitation status Advanced Directive on File Review of Systems Review of Symptoms General ROS: no weight loss or fever Psychological ROS: no depression or mood changes, no memory loss Ophthalmic ROS: no visual changes or eye irritation ENT ROS: no nasal congestion, hearing loss, dizziness Allergy and Immunology ROS: no allergic symptoms or urticaria Hematological and Lymphatic ROS: no swollen glands, unusual bleeding or bruising Endocrine ROS: no polyuria, polydipsia, weight changes, temperature intolerance Respiratory ROS: no cough, shortness of breath, or wheezing Cardiovascular ROS: no chest pain or dyspnea on exertion Gastrointestinal ROS: denies abdominal pain, bright red blood in stool. Musculoskeletal ROS: no myalgias or arthralgias Neurological ROS: no TIA or stroke symptoms Dermatological ROS: no new or changing skin lesions, rashes or pruritis Physical Exam Physical Exam General appearance: alert, cooperative, no distress, appears stated age Head: Normocephalic, without obvious abnormality, atraumatic Eyes: conjunctivae/corneas clear. PERRL, EOM's intact. Fundi benign Throat: Lips, mucosa, and tongue normal. Teeth and gums normal Neck: supple, symmetrical, trachea midline, no adenopathy, thyroid: not enlarged, symmetric, no tenderness/mass/nodules, no carotid bruit and no JVD Lungs: clear to auscultation bilaterally Heart: regular rate and rhythm, S1, S2 normal, no murmur, click, rub or gallop Abdomen: soft, non-tender. Bowel sounds normal. No masses, no organomegaly Extremities: extremities normal, atraumatic, no cyanosis or edema Pulses: 2+ and symmetric Skin: Skin color, texture, turgor normal. No rashes or lesions Neurologic: Grossly normal Last 24 Hour Vital Signs Date Time Temp Pulse Resp B/P (MAP) Pulse Ox O2 Delivery O2 Flow Rate FiO2 07/09/20 04:00 97.8 84 20 93/52 (66) 98 07/09/20 03:38 Nasal Cannula 2.0 07/09/20 01:10 98.1 92 18 103/90 95 Nasal Cannula 3.0 07/09/20 00:42 97.5 100 20 113/50 95 Nasal Cannula 2.0 07/08/20 23:40 97.1 92 18 93/43 99 Nasal Cannula 1.0 07/08/20 22:22 98.2 104 20 99/56 97 Nasal Cannula 2.0 07/08/20 21:23 98.2 105 16 94/56 98 Nasal Cannula 2.0 07/08/20 19:55 98.0 110 20 105/58 98 Nasal Cannula 2.0 07/08/20 19:55 110 20 Nasal Cannula 2.0 07/08/20 19:45 99.3 116 26 108/62 (77) 95 Nasal Cannula 2.0 l Intake and Output 07/08/20 07/09/20 19:00 07:00 Intake Total 1050 ml Output Total 300 ml Balance 750 ml Intake IV Total 1050 ml Output Urine Total 300 ml Laboratory Tests Test 07/08/20 20:40 07/08/20 21:00 07/09/20 06:08 White Blood Count 20.3 K/UL (4.8-10.8) H Red Blood Count 4.61 M/UL (4.20-5.40) Hemoglobin 13.6 G/DL (12.0-16.0) Hematocrit 41.8 % (37.0-47.0) Mean Corpuscular Volume 91 FL (80-99) Mean Corpuscular Hemoglobin 29.5 PG (27.0-31.0) Mean Corpuscular Hemoglobin Concent 32.5 G/DL (32.0-36.0) Red Cell Distribution Width 16.1 % (11.6-14.8) H Platelet Count 263 K/UL (150-450) Mean Platelet Volume 11.2 FL (6.5-10.1) H Neutrophils (%) (Auto) % (45.0-75.0) Lymphocytes (%) (Auto) % (20.0-45.0) Monocytes (%) (Auto) % (1.0-10.0) Eosinophils (%) (Auto) % (0.0-3.0) Basophils (%) (Auto) % (0.0-2.0) Differential Total Cells Counted 100 Neutrophils % (Manual) 87 % (45-75) H Lymphocytes % (Manual) 6 % (20-45) L Monocytes % (Manual) 4 % (1-10) Eosinophils % (Manual) 0 % (0-3) Basophils % (Manual) 0 % (0-2) Band Neutrophils 3 % (0-8) Platelet Estimate Adequate Platelet Morphology Giant Platelets Occasional Anisocytosis 1+ Prothrombin Time 12.6 SEC (9.30-11.50) H Prothromb Time International Ratio 1.2 (0.9-1.1) H Activated Partial Thromboplast Time 26 SEC (23-33) D-Dimer 1.57 mg/L FEU (0.00-0.49) H Sodium Level 148 MMOL/L (136-145) H Potassium Level 3.1 MMOL/L (3.5-5.1) L Chloride Level 112 MMOL/L (98-107) H Carbon Dioxide Level 29 MMOL/L (21-32) Anion Gap 7 mmol/L (5-15) Blood Urea Nitrogen 46 mg/dL (7-18) H Creatinine 0.7 MG/DL (0.55-1.30) Estimat Glomerular Filtration Rate > 60 mL/min (>60) Glucose Level 145 MG/DL (74-106) H Lactic Acid Level 1.80 mmol/L (0.4-2.0) Calcium Level 8.4 MG/DL (8.5-10.1) L Ferritin 548 NG/ML (8-388) H Total Bilirubin 0.3 MG/DL (0.2-1.0) Aspartate Amino Transf (AST/SGOT) 67 U/L (15-37) H Alanine Aminotransferase (ALT/SGPT) 120 U/L (12-78) H Alkaline Phosphatase 92 U/L (46-116) Lactate Dehydrogenase 209 U/L (81-234) Total Creatine Kinase 112 U/L (26-308) Creatine Kinase MB < 0.5 NG/ML (0.0-3.6) Creatine Kinase MB Relative Index 0.4 Troponin I 0.017 ng/mL (0.000-0.056) C-Reactive Protein, Quantitative 13.3 mg/dL (0.00-0.90) H Pro-B-Type Natriuretic Peptide 804 pg/mL (0-125) H Total Protein 7.5 G/DL (6.4-8.2) Albumin 1.9 G/DL (3.4-5.0) L Globulin 5.6 g/dL Albumin/Globulin Ratio 0.3 (1.0-2.7) L Lipase 124 U/L (73-393) Urine Color Yellow Urine Appearance Slightly cloudy Urine pH 5 (4.5-8.0) Urine Specific [place] 1.020 (1.005-1.035) Urine Protein 3+ (NEGATIVE) H Urine Glucose (UA) Negative (NEGATIVE) Urine Ketones 1+ (NEGATIVE) H Urine Blood 2+ (NEGATIVE) H Urine Nitrite Negative (NEGATIVE) Urine Bilirubin Negative (NEGATIVE) Urine Urobilinogen Normal MG/DL (0.0-1.0) Urine Leukocyte Esterase 2+ (NEGATIVE) H Urine RBC 5-10 /HPF (0 - 2) H Urine WBC Tntc /HPF (0 - 2) H Urine Squamous Epithelial Cells Occasional /LPF Urine Bacteria Few /HPF (NONE) POC Whole Blood Glucose 116 MG/DL (74-106) H Microbiology Date/Time Source Procedure Growth Status 07/08/20 20:40 Nasopharynx SARS-CoV-2 RdRp Gene Assay - Final Complete Height (Feet): 5 Height (Inches): 1.00 Weight (Pounds): 99 Medications Current Medications Medications (Trade) Dose Ordered Sig/Alvarado Route PRN Reason Start Time Stop Time Status Last Admin Dose Admin Acetaminophen (Tylenol) 650 mg Q4H PRN ORAL MILD PAIN/TEMP > 101F 07/09/20 02:30 08/08/20 02:29 Ascorbic Acid (Vitamin C) 500 mg DAILY ORAL 07/09/20 09:00 08/08/20 08:59 Atorvastatin Calcium (Lipitor) 10 mg BEDTIME GT 07/09/20 21:00 10/07/20 20:59 Bisacodyl (Dulcolax) 10 mg DAILY PRN RECTAL Constipation 07/09/20 02:30 10/07/20 02:29 Ceftriaxone Sodium 1 gm/ Dextrose 55 ml @ 110 mls/hr Q24H IVPB 07/09/20 21:00 07/16/20 20:59 Clonidine HCl (Catapres Tab) 0.1 mg Q8HR PRN GT HYPERTENSION 07/09/20 02:30 10/07/20 02:29 UNV Dextrose (Dextrose 50%) 25 ml Q30M PRN IV Hypoglycemia 07/09/20 02:45 10/07/20 02:44 Dextrose (Dextrose 50%) 50 ml Q30M PRN IV Hypoglycemia 07/09/20 02:45 10/07/20 02:44 Heparin Sodium (Porcine) (Heparin 5000 units/ml) 5,000 units EVERY 12 HOURS SUBQ 07/09/20 09:00 08/23/20 08:59 Insulin Aspart (NovoLOG) BEFORE MEALS AND HS SUBQ 07/09/20 06:30 10/07/20 06:29 Levetiracetam (Keppra) 500 mg Q12HR GT 07/09/20 09:00 08/08/20 08:59 Multivitamins Therapeutic (Therapeutic Multivitamin) 1 ea DAILY ORAL 07/09/20 09:00 08/08/20 08:59 Potassium Chloride (K-Dur) 40 meq TWICE A DAY ORAL 07/09/20 09:00 10/07/20 08:59 Sodium Chloride 1,000 ml @ 100 mls/hr Q10H IV 07/09/20 03:00 08/08/20 02:59 07/09/20 02:49 Assessment/Plan Assessment/Plan: Internal Med H&P Covering for Dr. Abarca RFA: Pyelonephritis DOS: 07/09/2020 HPI 69y old female, This patient presents [place] a [place] [facility]. The patient was sent in for an elevated heart rate and respiratory rate. There is also report the patient was febrile earlier today with a temp of 102. The patient has multiple medical problems to include diabetes, CHF, failure to thrive, dementia to name a few. Patient herself is unable to give any type of history. She is nv, nc 2lnc, on gt feeds, with TEODORO valderrama consulted. 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 failure Hx Diabetes: Yes - Type 2 Hx Cancer: No Hx Gastrointestinal Problems: Yes Hx Neurological Problems: Yes - Generalized muscle weakness, Epilepsy Hx Epilepsy: Yes Review of Systems All Other Systems: negative except mentioned in HPI Physical Exam Sp02 EP Interpretation: reviewed, normal General Appearance: no apparent distress, non-verbal Head: normocephalic, atraumatic ENT: hearing grossly normal, no angioedema Respiratory: chest non-tender, lungs clear, normal breath sounds,++2l Nc Cardiovascular: no edema, tachycardia Gastrointestinal: normal bowel sounds, non tender, soft, ++gt Rectal: deferred Musculoskeletal: normal inspection Neurologic: alert, motor strength/tone normal, no focal defects Psychiatric: mood/affect normal Skin: other - See RN skin exam. Lymphatic: no adenopathy Gu: valderrama+++ Labs: reviewed Meds: noted Imaging Rate: tachycardiac Rhythm: other - S.tachycardia ST Segments: other - NSST findings Rhythm Strip Diag. Results EP Interpretation: yes Rate: 90's Rhythm: NSR, no PVC's, no ectopy Chest X-Ray Diagnostic Results Chest X-Ray Diagnostic Results : Chest X-Ray Ordered: Yes # of Views/Limited/Complete: 1 View Indication: Other EP Interpretation: Yes Interpretation: no consolidation, no effusion, no pneumothorax, no acute cardiopulmonary disease Impression: No acute disease Electronically Signed by: Kristina Rosario, Assessment and Recs # Sepsis due to Pyelonephritis --> septic protocol started --> is on ivfs --> abx as per ID --> imaging noted --> urine culture sens and spec # Elevated ddimer, r/o dvt --> duplex legs ordered # Leukocytosis due to infection --> per ID abx # Fever with flu like symptoms --> r/o covid19 --> due to above # HL --> lipitor and asa # Tachycardia --> ivfs should improve # Dvt ppx heparin sq MIPS Hospital declaration INPATIENT level of care is warranted for this patient because patient is a 89 year old with who presents with suspicion of . I have a high level of concern because . Patient is at high risk for . Plan of care/treatment include . Patient care is expected to be greater than 2 midnights. OBSERVATION level of care is warranted for this patient. Patient is a 89 year old with who presents with . Patient will be admitted for 1 midnight, but if additional night(s) is/are necessary, patient will be converted to inpatient status for the entire hospitalization Disposition: Once the patient is stable to leave the hospital, I anticipate the patient will likely be discharged to the following environment: Estimated discharge date: I spent 70 minutes on this patient's case, and minutes was dedicated to counseling and/or care coordination. MIPS ([employer]-based Incentive Payment System) Applicable CPT: 90096, 96782 CHECK ALL THAT ARE MET: Measure #5 (CHF): All ages. Prescribe GAMAL/ARB upon discharge for patients with left ventricular systolic dysfunction. If not, the reason is clearly documented in the medical chart. Measure #8 (CHF): All ages. Prescribe a beta manuel upon discharge for patients with left ventricular systolic dysfunction. If not, the reason is clearly documented in the medical chart. Measure #47 Advance care plan or surrogate decision maker documented in the medical record. Measure #130 The provider has documented, updated, or reviewed the patients current medication list and has documented it in the patients note. Measure #374 (All): Send report to referring provider. Measure #407(Sepsis due to MSSA bacteremia): Age 18+ Patient treated with a beta-lactam antibiotic (Nafcillin, Oxacillin or Cefazolin) as definitive the rapy. MEDICAL COMPLEXITY High complexity medical decision making (need 2/3 categories) Problem - need 4 points Acute/new problem with new plan for workup (4 points, 1 max) Acute/new problem without additional workup (3 points, 1 max) Unstable chronic problem actively being managed (2 point each, 2 max) Stable chronic problem actively being managed (1 point each, 2 max) Self-limited/transient process (constipation, muscle ache, etc) (1 point each, 2 max) Data - need 4 points Reviewed labs/imaging studies (1 points, 2 max) Independent review of imaging (EKG, xrays, etc) (2 points, 2 max) Discussed case with consult/other MD/RN (2 points, 2 max) High Risk - qualify if have one of the following: Severe exacerbation of acute problem, acute mental status change, IV narcotics , monitoring drug levels (vancomycin, INR, tacrolimus etc) Nate Begum MD Jul 09, 2020 06:38
[2020-07-09 07:39] LABS: HEMATOCRIT 35.8 % (37.0-47.0); HEMOGLOBIN 10.7 G/DL (12.0-16.0); MEAN CORPUSCULAR VOLUME 96 FL (80-99); PLATELET COUNT 204 K/UL (150-450); RED BLOOD COUNT 3.72 M/UL (4.20-5.40); RED CELL DISTRIBUTION WIDTH 14.9 % (11.6-14.8); WHITE BLOOD COUNT 21.5 K/UL (4.8-10.8)
[2020-07-09 08:00] VITALS: BP 100/60
[2020-07-09 08:20] LABS: ANION GAP 7 mmol/L (5-15); BLOOD UREA NITROGEN 32 mg/dL (7-18); CALCIUM 7.4 MG/DL (8.5-10.1); CARBON DIOXIDE 27 MMOL/L (21-32); CHLORIDE 117 MMOL/L (98-107); CREATININE 0.5 MG/DL (0.55-1.30); POTASSIUM 3.6 MMOL/L (3.5-5.1); SODIUM 151 MMOL/L (136-145)
--- NOTE | 2020-07-09 08:59 | Consultation ---
History of Present Illness General Date patient seen: Jul 09, 2020 Time patient seen: 11:36 Chief Complaint: Flu Like Symptoms Referring physician: PCP Reason for Consultation: Sepsis Present Illness HPI 69yo F who presents from SNF w/ tachycardia, tachypnea and fever to 102. ID c/s given sepsis In house pt is AF, HDS, but with leukocytosis to 21 and positive UA. Pt unable to provide history, so obtained from chart review and d/w staff consultant. PMH: DM CHF Dementia SNF resident Allergies: Coded Allergies: ERYTHROMYCIN BASE (Verified Allergy, Unknown, 11/12/16) Medication History Scheduled Ascorbic Acid* (Vitamin C*), 500 MG ORAL DAILY, (Reported) Atorvastatin Calcium* (Lipitor*), 10 MG GT BEDTIME, (Reported) Benztropine Mesylate* (Benztropine Mesylate*), 1 MG GT DAILY, (Reported) Cholecalciferol (Vitamin D3) (Vitamin D3*), 125 MCG GT DAILY, (Reported) Docusate Sodium (Docusate Sodium), 100 MG GT DAILY, (Reported) Levetiracetam (Levetiracetam), 500 MG GT BID, (Reported) Multivitamin With Minerals (Multivitamins With Minerals*), 1 TAB GT DAILY, (Reported) Omeprazole (Omeprazole), 20 MG GT EVERY MORNING, (Reported) Potassium Chloride (Potassium Chloride), 40 MEQ GT BID, (Reported) Scheduled PRN Acetaminophen* (Acetaminophen 325MG Tablet*), 650 MG ORAL Q4H PRN for MILD PAIN/TEMP > 101F, (Reported) Bisacodyl (Dulcolax), 10 MG RC DAILY PRN for Constipation, (Reported) Clonidine Hcl* (Catapres*), 0.1 MG GT Q8HR PRN for HYPERTENSION, (Reported) Discontinued Medications Amino Acids/Protein Hydrolys (Pro-Stat Liquid), 30 ML GT DAILY, (Reported) Discontinued Reason: discontinued med Aripiprazole* (Abilify*), 5 MG GT DAILY, (Reported) Discontinued Reason: MD discontinued med Insulin Regular, Human* (Novolin R*), 0 SUBQ ACHS, (Reported) Discontinued Reason: MD discontinued med Magnesium Hydroxide* (Milk Of Magnesia*), 30 ML GT QHS PRN for Constipation, (Reported) Discontinued Reason: MD discontinued med Mupirocin* (Mupirocin*), 1 APPLIC TOPIC DAILY, (Reported) Discontinued Reason: MD discontinued med Na Phos,M-B/Na Phos,Di-Ba* (Fleet Enema*), 133 ML RECTAL EVERY OTHER DAY PRN for Constipation, (Reported) Discontinued Reason: discontinued med Sennosides (Senna), 17.2 MG GT QHS, (Reported) Discontinued Reason: MD discontinued med Zinc Sulfate (Zinc Sulfate*), 220 MG ORAL DAILY, (Reported) Discontinued Reason: MD discontinued med [Santyl], GM TP DAILY, (Reported) Discontinued Reason: MD discontinued med Patient History Limited by: medical condition Healthcare decision maker Resuscitation status Advanced Directive on File Review of Systems ROS Narrative Unable to assess 2/2 pt condition Physical Exam Physical Exam Narrative Gen: NAD HEENT: NCAT Pulm: BL chest rise Abd: Soft, mild TTP, no rebound or guarding Ext: No c/c/e Skin: No visible rashes Neuro: Awake but not interactive Last 24 Hour Vital Signs Date Time Temp Pulse Resp B/P (MAP) Pulse Ox O2 Delivery O2 Flow Rate FiO2 07/09/20 04:00 97.8 84 20 93/52 (66) 98 07/09/20 03:38 Nasal Cannula 2.0 07/09/20 01:10 98.1 92 18 103/90 95 Nasal Cannula 3.0 07/09/20 00:42 97.5 100 20 113/50 95 Nasal Cannula 2.0 07/08/20 23:40 97.1 92 18 93/43 99 Nasal Cannula 1.0 07/08/20 22:22 98.2 104 20 99/56 97 Nasal Cannula 2.0 07/08/20 21:23 98.2 105 16 94/56 98 Nasal Cannula 2.0 07/08/20 19:55 98.0 110 20 105/58 98 Nasal Cannula 2.0 07/08/20 19:55 110 20 Nasal Cannula 2.0 07/08/20 19:45 99.3 116 26 108/62 (77) 95 Nasal Cannula 2.0 Intake and Output 07/08/20 07/09/20 19:00 07:00 Intake Total 1400 ml Output Total 300 ml Balance 1100 ml Intake Free Water 100 ml IV Total 1050 ml Tube Feeding 250 ml Output Urine Total 300 ml Laboratory Tests Test 07/08/20 20:40 07/08/20 21:00 07/09/20 05:29 07/09/20 06:08 White Blood Count 20.3 K/UL (4.8-10.8) H 21.5 K/UL (4.8-10.8) H Red Blood Count 4.61 M/UL (4.20-5.40) 3.72 M/UL (4.20-5.40) L Hemoglobin 13.6 G/DL (12.0-16.0) 10.7 G/DL (12.0-16.0) L Hematocrit 41.8 % (37.0-47.0) 35.8 % (37.0-47.0) L Mean Corpuscular Volume 91 FL (80-99) 96 FL (80-99) Mean Corpuscular Hemoglobin 29.5 PG (27.0-31.0) 28.7 PG (27.0-31.0) Mean Corpuscular Hemoglobin Concent 32.5 G/DL (32.0-36.0) 29.8 G/DL (32.0-36.0) L Red Cell Distribution Width 16.1 % (11.6-14.8) H 14.9 % (11.6-14.8) H Platelet Count 263 K/UL (150-450) 204 K/UL (150-450) Mean Platelet Volume 11.2 FL (6.5-10.1) H 10.1 FL (6.5-10.1) Neutrophils (%) (Auto) % (45.0-75.0) % (45.0-75.0) Lymphocytes (%) (Auto) % (20.0-45.0) % (20.0-45.0) Monocytes (%) (Auto) % (1.0-10.0) % (1.0-10.0) Eosinophils (%) (Auto) % (0.0-3.0) % (0.0-3.0) Basophils (%) (Auto) % (0.0-2.0) % (0.0-2.0) Differential Total Cells Counted 100 Neutrophils % (Manual) 87 % (45-75) H Pending Lymphocytes % (Manual) 6 % (20-45) L Pending Monocytes % (Manual) 4 % (1-10) Eosinophils % (Manual) 0 % (0-3) Basophils % (Manual) 0 % (0-2) Band Neutrophils 3 % (0-8) Platelet Estimate Adequate Pending Platelet Morphology Pending Giant Platelets Occasional Anisocytosis 1+ Prothrombin Time 12.6 SEC (9.30-11.50) H Prothromb Time International Ratio 1.2 (0.9-1.1) H Activated Partial Thromboplast Time 26 SEC (23-33) D-Dimer 1.57 mg/L FEU (0.00-0.49) H Sodium Level 148 MMOL/L (136-145) H 151 MMOL/L (136-145) H Potassium Level 3.1 MMOL/L (3.5-5.1) L 3.6 MMOL/L (3.5-5.1) Chloride Level 112 MMOL/L (98-107) H 117 MMOL/L (98-107) H Carbon Dioxide Level 29 MMOL/L (21-32) 27 MMOL/L (21-32) Anion Gap 7 mmol/L (5-15) 7 mmol/L (5-15) Blood Urea Nitrogen 46 mg/dL (7-18) H 32 mg/dL (7-18) H Creatinine 0.7 MG/DL (0.55-1.30) 0.5 MG/DL (0.55-1.30) L Estimat Glomerular Filtration Rate > 60 mL/min (>60) > 60 mL/min (>60) Glucose Level 145 MG/DL (74-106) H 111 MG/DL (74-106) H Lactic Acid Level 1.80 mmol/L (0.4-2.0) Calcium Level 8.4 MG/DL (8.5-10.1) L 7.4 MG/DL (8.5-10.1) L Ferritin 548 NG/ML (8-388) H Total Bilirubin 0.3 MG/DL (0.2-1.0) Aspartate Amino Transf (AST/SGOT) 67 U/L (15-37) H Alanine Aminotransferase (ALT/SGPT) 120 U/L (12-78) H Alkaline Phosphatase 92 U/L (46-116) Lactate Dehydrogenase 209 U/L (81-234) Total Creatine Kinase 112 U/L (26-308) Creatine Kinase MB < 0.5 NG/ML (0.0-3.6) Creatine Kinase MB Relative Index 0.4 Troponin I 0.017 ng/mL (0.000-0.056) C-Reactive Protein, Quantitative 13.3 mg/dL (0.00-0.90) H Pro-B-Type Natriuretic Peptide 804 pg/mL (0-125) H Total Protein 7.5 G/DL (6.4-8.2) Albumin 1.9 G/DL (3.4-5.0) L Globulin 5.6 g/dL Albumin/Globulin Ratio 0.3 (1.0-2.7) L Lipase 124 U/L (73-393) Urine Color Yellow Urine Appearance Slightly cloudy Urine pH 5 (4.5-8.0) Urine Specific [place] 1.020 (1.005-1.035) Urine Protein 3+ (NEGATIVE) H Urine Glucose (UA) Negative (NEGATIVE) Urine Ketones 1+ (NEGATIVE) H Urine Blood 2+ (NEGATIVE) H Urine Nitrite Negative (NEGATIVE) Urine Bilirubin Negative (NEGATIVE) Urine Urobilinogen Normal MG/DL (0.0-1.0) Urine Leukocyte Esterase 2+ (NEGATIVE) H Urine RBC 5-10 /HPF (0 - 2) H Urine WBC Tntc /HPF (0 - 2) H Urine Squamous Epithelial Cells Occasional /LPF Urine Bacteria Few /HPF (NONE) POC Whole Blood Glucose 116 MG/DL (74-106) H Microbiology Date/Time Source Procedure Growth Status 07/08/20 20:40 Nasopharynx SARS-CoV-2 RdRp Gene Assay - Final Complete Height (Feet): 5 Height (Inches): 1.00 Weight (Pounds): 99 Medications Current Medications Medications (Trade) Dose Ordered Sig/Alvarado Route PRN Reason Start Time Stop Time Status Last Admin Dose Admin Acetaminophen (Tylenol) 650 mg Q4H PRN ORAL MILD PAIN/TEMP > 101F 07/09/20 02:30 08/08/20 02:29 Ascorbic Acid (Vitamin C) 500 mg DAILY ORAL 07/09/20 09:00 08/08/20 08:59 Atorvastatin Calcium (Lipitor) 10 mg BEDTIME GT 07/09/20 21:00 10/07/20 20:59 Bisacodyl (Dulcolax) 10 mg DAILY PRN RECTAL Constipation 07/09/20 02:30 10/07/20 02:29 Ceftriaxone Sodium 1 gm/ Dextrose 55 ml @ 110 mls/hr Q24H IVPB 07/09/20 21:00 07/16/20 20:59 Clonidine HCl (Catapres Tab) 0.1 mg Q8HR PRN GT HYPERTENSION 07/09/20 02:30 10/07/20 02:29 UNV Dextrose (Dextrose 50%) 25 ml Q30M PRN IV Hypoglycemia 07/09/20 02:45 10/07/20 02:44 Dextrose (Dextrose 50%) 50 ml Q30M PRN IV Hypoglycemia 07/09/20 02:45 10/07/20 02:44 Heparin Sodium (Porcine) (Heparin 5000 units/ml) 5,000 units EVERY 12 HOURS SUBQ 07/09/20 09:00 08/23/20 08:59 Insulin Aspart (NovoLOG) BEFORE MEALS AND HS SUBQ 07/09/20 06:30 10/07/20 06:29 Levetiracetam (Keppra) 500 mg Q12HR GT 07/09/20 09:00 08/08/20 08:59 Multivitamins Therapeutic (Therapeutic Multivitamin) 1 ea DAILY ORAL 07/09/20 09:00 08/08/20 08:59 Potassium Chloride (K-Dur) 40 meq TWICE A DAY ORAL 07/09/20 09:00 10/07/20 08:59 Sodium Chloride 1,000 ml @ 100 mls/hr Q10H IV 07/09/20 03:00 08/08/20 02:59 07/09/20 02:49 Assessment/Plan Assessment/Plan: 69yo F with: Sepsis Leukocytosis to 21 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 resident Plan: Cont CTX 1g IV daily for now #2 Abd US given elevated LFTs, abd pain on exam COVID PCR Acute hep panel HIV screen F/u BCx, UCx, CXR Trend WBC Monitor CBC/CMP Monitor temp curve, hemodynamics Monitor resp status D/w RN Thank you for this consult. [facility] will continue to follow. Beth Marsh M.D. Jul 09, 2020 08:59
[2020-07-09] MEDS: levETIRAcetam 500mg/5ml Liquid GT SCH ×2 (09:25→21:45)
[2020-07-09] MEDS: Multivitamin w/Minerals tab ORAL SCH (09:25)
[2020-07-09] MEDS: Ascorbic Acid 500mg tab ORAL SCH (09:25)
[2020-07-09] MEDS: Heparin 5000 units/ml inj SUBQ SCH ×2 (09:26→21:46)
[2020-07-09 12:00] VITALS: BP 95/60
--- NOTE | 2020-07-09 14:06 | Consultation ---
Consult Note Consult Note Dr. Abarca requested me to see the patient for fluid and electrolyte imbalance This patient presents from a [facility] facility. The patient was sent in for an elevated heart rate and respiratory rate. There is also report the patient was febrile earlier today with a temp of 102. The patient has multiple medical problems to include diabetes, CHF, failure to thrive, dementia to name a few. Patient herself is unable to give any type of history. Allergies: ERYTHROMYCIN BASE (Verified Allergy, Unknown, 11/12/16) COVID-19 Screening Contact w/high risk pt: Yes Experienced COVID-19 symptoms?: Yes COVID-19 Testing performed TAPPER BIT: Yes COVID-19 Screening: Negative COVID-19 COVID-19 Testing Source: 06/09/2020 [employer] Past Medical History: see triage record, old chart reviewed, DM, HTN, CAD, dementia Social History: Denies: smoking, alcohol use, drug use Now: No Reviewed Nursing Documentation: PMH: Agreed; PSxH: Agreed Hx Cardiac Problems: Yes - Atherosclerotic heart disease, Anemia Hx Hypertension: Yes Hx COPD: Yes - Resp. failure Hx Diabetes: Yes - Type 2 Hx Gastrointestinal Problems: Yes Hx Neurological Problems: Yes - Generalized muscle weakness, Epilepsy Hx Epilepsy: Yes Vital Signs Date Time Temp Pulse Resp B/P (MAP) Pulse Ox O2 Delivery O2 Flow Rate FiO2 07/08/20 19:45 99.3 116 26 108/62 (77) 95 Nasal Cannula 2.0 Physical Exam Narrative Gen: NAD HEENT: NCAT Pulm: BL chest rise Abd: Soft, mild TTP, no rebound or guarding Ext: No c/c/e Skin: No visible rashes Neuro: Awake but not interactive . Assessment/Plan Electrolyte imbalance, hypernatremia, hypokalemia Pyelonephritis, leukocytosis Fever, tachycardia Plan: Change IV to D5W Potassium supplement Anemia work-up Albumin bolus Monitor electrolytes and renal parameters Per orders Gabriele Honeycutt MD Jul 09, 2020 14:06
--- NOTE | 2020-07-09 14:20 | Consultation ---
History of Present Illness General Date patient seen: Jul 09, 2020 Reason for Hospitalization: Flu Like Symptoms Present Illness HPI 69F well known to me from prior care plan recently discharged presented from a group home facility. The patient was sent in for an elevated heart rate and respiratory rate. There is also report the patient was febrile earlier today with a temp of 102. The patient has multiple medical problems to include diabetes, CHF, failure to thrive, dementia to name a few. Patient herself is unable to give any type of history. She is nv, nc 2lnc, on gt feeds, with valderrama, surgery aclled to assist with care. Allergies: Coded Allergies: ERYTHROMYCIN BASE (Verified Allergy, Unknown, 11/12/16) COVID-19 Screening Contact w/high risk pt: No Experienced COVID-19 symptoms?: Yes Coronavirus symptoms experienc: Fever (T>100.4F or >38C) Medication History Scheduled Ascorbic Acid* (Vitamin C*), 500 MG ORAL DAILY, (Reported) Atorvastatin Calcium* (Lipitor*), 10 MG GT BEDTIME, (Reported) Benztropine Mesylate* (Benztropine Mesylate*), 1 MG GT DAILY, (Reported) Cholecalciferol (Vitamin D3) (Vitamin D3*), 125 MCG GT DAILY, (Reported) Docusate Sodium (Docusate Sodium), 100 MG GT DAILY, (Reported) Levetiracetam (Levetiracetam), 500 MG GT BID, (Reported) Multivitamin With Minerals (Multivitamins With Minerals*), 1 TAB GT DAILY, (Reported) Omeprazole (Omeprazole), 20 MG GT EVERY MORNING, (Reported) Potassium Chloride (Potassium Chloride), 40 MEQ GT BID, (Reported) Scheduled PRN Acetaminophen* (Acetaminophen 325MG Tablet*), 650 MG ORAL Q4H PRN for MILD PAIN/TEMP > 101F, (Reported) Bisacodyl (Dulcolax), 10 MG RC DAILY PRN for Constipation, (Reported) Clonidine Hcl* (Catapres*), 0.1 MG GT Q8HR PRN for HYPERTENSION, (Reported) Discontinued Medications Amino Acids/Protein Hydrolys (Pro-Stat Liquid), 30 ML GT DAILY, (Reported) Discontinued Reason: MD discontinued med Aripiprazole* (Abilify*), 5 MG GT DAILY, (Reported) Discontinued Reason: MD discontinued med Insulin Regular, Human* (Novolin R*), 0 SUBQ ACHS, (Reported) Discontinued Reason: MD discontinued med Magnesium Hydroxide* (Milk Of Magnesia*), 30 ML GT QHS PRN for Constipation, (Reported) Discontinued Reason: MD discontinued med Mupirocin* (Mupirocin*), 1 APPLIC TOPIC DAILY, (Reported) Discontinued Reason: MD discontinued med Na Phos,M-B/Na Phos,Di-Ba* (Fleet Enema*), 133 ML RECTAL EVERY OTHER DAY PRN for Constipation, (Reported) Discontinued Reason: MD discontinued med Sennosides (Senna), 17.2 MG GT QHS, (Reported) Discontinued Reason: MD discontinued med Zinc Sulfate (Zinc Sulfate*), 220 MG ORAL DAILY, (Reported) Discontinued Reason: MD discontinued med [Santyl], GM TP DAILY, (Reported) Discontinued Reason: MD discontinued med Patient History Limited by: medical condition History Provided By: Medical Record, PMD Healthcare decision maker Resuscitation status Advanced Directive on File Past Medical/Surgical History Past Medical/Surgical History: (1) UTI (urinary tract infection) (2) Pneumonia (3) PEG (percutaneous endoscopic gastrostomy) adjustment/replacement/removal (4) Decubitus skin ulcer (5) Malnutrition (6) Fever (7) Leukocytosis (8) Tachycardia (9) Pyelonephritis (10) Sepsis Review of Systems Review of Symptoms General ROS: no weight loss or fever Psychological ROS: no depression or mood changes, no memory loss Ophthalmic ROS: no visual changes or eye irritation ENT ROS: no nasal congestion, hearing loss, dizziness Allergy and Immunology ROS: no allergic symptoms or urticaria Hematological and Lymphatic ROS: no swollen glands, unusual bleeding or bruising Endocrine ROS: no polyuria, polydipsia, weight changes, temperature intolerance Respiratory ROS: no cough, shortness of breath, or wheezing Cardiovascular ROS: no chest pain or dyspnea on exertion Gastrointestinal ROS: denies abdominal pain, bright red blood in stool. Musculoskeletal ROS: no myalgias or arthralgias Neurological ROS: no TIA or stroke symptoms Dermatological ROS: no new or changing skin lesions, rashes or pruritis Physical Exam Physical Exam General Appearance: no apparent distress, alert, GCS 15, non-toxic, cachetic Head: normocephalic, atraumatic ENT: hearing grossly normal, no angioedema Neck: normal inspection, full range of motion Respiratory: chest non-tender, lungs clear, normal breath sounds, no respiratory distress, no retraction, no accessory muscle use, speaking full sentences Cardiovascular #1: no edema, tachycardia Gastrointestinal: normal bowel sounds, non tender, soft, non-distended, no gu arding, no rebound Rectal: deferred Musculoskeletal: normal inspection, back normal, normal range of motion, non- tender Neurologic: alert, motor strength/tone normal, no focal defects Psychiatric: mood/affect normal Lymphatic: no adenopathy Last 24 Hour Vital Signs Date Time Temp Pulse Resp B/P (MAP) Pulse Ox O2 Delivery O2 Flow Rate FiO2 07/09/20 12:00 98.0 71 17 95/60 (72) 99 07/09/20 09:00 Nasal Cannula 3.0 07/09/20 08:00 98.0 83 20 100/60 (73) 99 07/09/20 04:00 97.8 84 20 93/52 (66) 98 07/09/20 03:38 Nasal Cannula 2.0 07/09/20 01:10 98.1 92 18 103/90 95 Nasal Cannula 3.0 07/09/20 00:42 97.5 100 20 113/50 95 Nasal Cannula 2.0 07/08/20 23:40 97.1 92 18 93/43 99 Nasal Cannula 1.0 07/08/20 22:22 98.2 104 20 99/56 97 Nasal Cannula 2.0 07/08/20 21:23 98.2 105 16 94/56 98 Nasal Cannula 2.0 07/08/20 19:55 98.0 110 20 105/58 98 Nasal Cannula 2.0 07/08/20 19:55 110 20 Nasal Cannula 2.0 07/08/20 19:45 99.3 116 26 108/62 (77) 95 Nasal Cannula 2.0 Intake and Output 07/08/20 07/09/20 19:00 07:00 Intake Total 1400 ml Output Total 300 ml Balance 1100 ml Intake Free Water 100 ml IV Total 1050 ml Tube Feeding 250 ml Output Urine Total 300 ml Laboratory Tests Test 07/08/20 20:40 07/08/20 21:00 07/09/20 05:29 07/09/20 06:08 White Blood Count 20.3 K/UL (4.8-10.8) H 21.5 K/UL (4.8-10.8) H Red Blood Count 4.61 M/UL (4.20-5.40) 3.72 M/UL (4.20-5.40) L Hemoglobin 13.6 G/DL (12.0-16.0) 10.7 G/DL (12.0-16.0) L Hematocrit 41.8 % (37.0-47.0) 35.8 % (37.0-47.0) L Mean Corpuscular Volume 91 FL (80-99) 96 FL (80-99) Mean Corpuscular Hemoglobin 29.5 PG (27.0-31.0) 28.7 PG (27.0-31.0) Mean Corpuscular Hemoglobin Concent 32.5 G/DL (32.0-36.0) 29.8 G/DL (32.0-36.0) L Red Cell Distribution Width 16.1 % (11.6-14.8) H 14.9 % (11.6-14.8) H Platelet Count 263 K/UL (150-450) 204 K/UL (150-450) Mean Platelet Volume 11.2 FL (6.5-10.1) H 10.1 FL (6.5-10.1) Neutrophils (%) (Auto) % (45.0-75.0) % (45.0-75.0) Lymphocytes (%) (Auto) % (20.0-45.0) % (20.0-45.0) Monocytes (%) (Auto) % (1.0-10.0) % (1.0-10.0) Eosinophils (%) (Auto) % (0.0-3.0) % (0.0-3.0) Basophils (%) (Auto) % (0.0-2.0) % (0.0-2.0) Differential Total Cells Counted 100 100 Neutrophils % (Manual) 87 % (45-75) H 86 % (45-75) H Lymphocytes % (Manual) 6 % (20-45) L 7 % (20-45) L Monocytes % (Manual) 4 % (1-10) 7 % (1-10) Eosinophils % (Manual) 0 % (0-3) 0 % (0-3) Basophils % (Manual) 0 % (0-2) 0 % (0-2) Band Neutrophils 3 % (0-8) 0 % (0-8) Platelet Estimate Adequate Adequate Platelet Morphology Normal Giant Platelets Occasional Anisocytosis 1+ 1+ Prothrombin Time 12.6 SEC (9.30-11.50) H Prothromb Time International Ratio 1.2 (0.9-1.1) H Activated Partial Thromboplast Time 26 SEC (23-33) D-Dimer 1.57 mg/L FEU (0.00-0.49) H Sodium Level 148 MMOL/L (136-145) H 151 MMOL/L (136-145) H Potassium Level 3.1 MMOL/L (3.5-5.1) L 3.6 MMOL/L (3.5-5.1) Chloride Level 112 MMOL/L (98-107) H 117 MMOL/L (98-107) H Carbon Dioxide Level 29 MMOL/L (21-32) 27 MMOL/L (21-32) Anion Gap 7 mmol/L (5-15) 7 mmol/L (5-15) Blood Urea Nitrogen 46 mg/dL (7-18) H 32 mg/dL (7-18) H Creatinine 0.7 MG/DL (0.55-1.30) 0.5 MG/DL (0.55-1.30) L Estimat Glomerular Filtration Rate > 60 mL/min (>60) > 60 mL/min (>60) Glucose Level 145 MG/DL (74-106) H 111 MG/DL (74-106) H Lactic Acid Level 1.80 mmol/L (0.4-2.0) Calcium Level 8.4 MG/DL (8.5-10.1) L 7.4 MG/DL (8.5-10.1) L Ferritin 548 NG/ML (8-388) H Total Bilirubin 0.3 MG/DL (0.2-1.0) Aspartate Amino Transf (AST/SGOT) 67 U/L (15-37) H Alanine Aminotransferase (ALT/SGPT) 120 U/L (12-78) H Alkaline Phosphatase 92 U/L (46-116) Lactate Dehydrogenase 209 U/L (81-234) Total Creatine Kinase 112 U/L (26-308) Creatine Kinase MB < 0.5 NG/ML (0.0-3.6) Creatine Kinase MB Relative Index 0.4 Troponin I 0.017 ng/mL (0.000-0.056) C-Reactive Protein, Quantitative 13.3 mg/dL (0.00-0.90) H Pro-B-Type Natriuretic Peptide 804 pg/mL (0-125) H Total Protein 7.5 G/DL (6.4-8.2) Albumin 1.9 G/DL (3.4-5.0) L Globulin 5.6 g/dL Albumin/Globulin Ratio 0.3 (1.0-2.7) L Lipase 124 U/L (73-393) Urine Color Yellow Urine Appearance Slightly cloudy Urine pH 5 (4.5-8.0) Urine Specific [place] 1.020 (1.005-1.035) Urine Protein 3+ (NEGATIVE) H Urine Glucose (UA) Negative (NEGATIVE) Urine Ketones 1+ (NEGATIVE) H Urine Blood 2+ (NEGATIVE) H Urine Nitrite Negative (NEGATIVE) Urine Bilirubin Negative (NEGATIVE) Urine Urobilinogen Normal MG/DL (0.0-1.0) Urine Leukocyte Esterase 2+ (NEGATIVE) H Urine RBC 5-10 /HPF (0 - 2) H Urine WBC Tntc /HPF (0 - 2) H Urine Squamous Epithelial Cells Occasional /LPF Urine Bacteria Few /HPF (NONE) POC Whole Blood Glucose 116 MG/DL (74-106) H Test 07/09/20 10:15 07/09/20 12:04 Hepatitis A IgM Antibody Pending Hepatitis B Surface Antigen Pending Hepatitis B Core IgM Antibody Pending Hepatitis C Antibody Pending HIV (1&2) Antibody Rapid Negative (NEGATIVE) POC Whole Blood Glucose 107 MG/DL (74-106) H Microbiology Date/Time Source Procedure Growth Status 07/08/20 21:00 Urine,Clean Catch Urine Culture - Preliminary NO GROWTH Resulted 07/08/20 20:40 Nasopharynx SARS-CoV-2 RdRp Gene Assay - Final Complete Height (Feet): 5 Height (Inches): 1.00 Weight (Pounds): 99 Medications Current Medications Medications (Trade) Dose Ordered Sig/Alvarado Route PRN Reason Start Time Stop Time Status Last Admin Dose Admin Acetaminophen (Tylenol) 650 mg Q4H PRN ORAL MILD PAIN/TEMP > 101F 07/09/20 02:30 1/30/21 02:29 Albumin Human 100 ml @ 100 mls/hr ONCE ONCE IV 07/09/20 14:15 07/09/20 15:14 Ascorbic Acid (Vitamin C) 500 mg DAILY ORAL 07/09/20 09:00 08/08/20 08:59 07/09/20 09:25 Atorvastatin Calcium (Lipitor) 10 mg BEDTIME GT 07/09/20 21:00 10/07/20 20:59 Bisacodyl (Dulcolax) 10 mg DAILY PRN RECTAL Constipation 07/09/20 02:30 10/07/20 02:29 Ceftriaxone Sodium 1 gm/ Dextrose 55 ml @ 110 mls/hr Q24H IVPB 07/09/20 21:00 07/16/20 20:59 Clonidine HCl (Catapres Tab) 0.1 mg Q8HR PRN GT HYPERTENSION 07/09/20 02:30 10/07/20 02:29 UNV Dextrose 1,000 ml @ 75 mls/hr [id number] IV 07/09/20 14:15 08/08/20 14:14 Dextrose (Dextrose 50%) 25 ml Q30M PRN IV Hypoglycemia 07/09/20 02:45 10/07/20 02:44 Dextrose (Dextrose 50%) 50 ml Q30M PRN IV Hypoglycemia 07/09/20 02:45 10/07/20 02:44 Heparin Sodium (Porcine) (Heparin 5000 units/ml) 5,000 units EVERY 12 HOURS SUBQ 07/09/20 09:00 08/23/20 08:59 07/09/20 09:26 Insulin Aspart (NovoLOG) BEFORE MEALS AND HS SUBQ 07/09/20 06:30 10/07/20 06:29 Levetiracetam (Keppra) 500 mg Q12HR GT 07/09/20 09:00 08/08/20 08:59 07/09/20 09:25 Multivitamins Therapeutic (Therapeutic Multivitamin) 1 ea DAILY ORAL 07/09/20 09:00 08/08/20 08:59 07/09/20 09:25 Potassium Chloride (K-Dur) 40 meq TWICE A DAY ORAL 07/09/20 09:00 10/07/20 08:59 07/09/20 09:25 Assessment/Plan Problem List: (1) Fever ICD Codes: R50.9 - Fever, unspecified SNOMED: 591402873 (2) Leukocytosis Assessment & Plan: on abx id input appreciated wounds not infected nutrition ICD Codes: D72.829 - Elevated white blood cell count, unspecified SNOMED: 371474969, 068454535 (3) Tachycardia ICD Codes: R00.0 - Tachycardia, unspecified SNOMED: 9852764, 606851514 (4) Decubitus skin ulcer ICD Codes: L89.90 - Pressure ulcer of unspecified site, unspecified stage SNOMED: 457338346 (5) Pyelonephritis ICD Codes: N12 - Tubulo-interstitial nephritis, not specified as acute or chronic SNOMED: 04323246, 904135806 (6) Malnutrition ICD Codes: E46 - Unspecified protein-calorie malnutrition SNOMED: 24780134 (7) Sepsis Assessment & Plan: Needs based on underweight, DM 35.5kg 30-40 kcals/kg 5997-4696 total kcals 1.25-2 g protein/kg 44-71 g total protein 25-35ml/kcal mL/kg 888-1243 total fluid mLs NUTRITION DIAGNOSIS: Swallowing difficulty R/T dysphagia as evidenced by pt is Gtube dependent. ENTERAL NUTRITION RECOMMENDATIONS: Glucerna 1.2 @50ml x24 hrs to provide 1200ml, 1440 kcal, 72g pro, 966ml free H2O - As able rec carb control formula for h/o DM. - Start @30ml/hr for 6 hrs, advance as tolerated 10ml/hr q4-6 hrs to goal. - Flush per MD/ HOB over 30 degrees ADDITIONAL RECOMMENDATIONS: - Per SNF: 5'3" and 78lbs/35.45kg. - Check lytes daily, replete as needed - A1c for eval of glycemic control - Wound care: advanced per RN, f/up with WC RN. Add LINA BID w/ GT, Vit C 250mg BID (2) Decubitus skin ulcer Assessment & Plan: This is an emaciated pt whom presented on admission with Multiple Pressure Injuries. Unstageable Pressure Injury Sacrum (L)11cm x (W)10.5cm. Base of wound is 90% necrotic, surrounding 10% moist, erythematous borders. Edges adherent to base of wound. No odor or exudate noted. Unstageable Pressure Injury L trochanter(L)3.5cm x (W)5.5cm. Base of wound is 95% necrotic, 5% surrounding borders arleen. Edges adherent to base of wound. No odor or exudate noted.Periwound is pale. Non-Blanchable erythema without induration L Ischium. Non-Blanchable erythema without induration bony prominences of L Hip/L Trochanter/L Ischial tuberosity. DTPI L Heel(L)2.5cmx(W)2cm.Base of Pressure Injury is fluctuant, Maroon in colour with surrounding non-blanchable erythema. Non-Blanchable erythema without induration L Hallux (L)1cm x (W)2cm. DTPI R Heel (L)6cm x (W)8cm.Base of Pressure Injury is fluctuant and maroon in colour. Edges are adherent to base of Pressure Injury. Unstageable Pressure Injury dorsal R 1st metatarsal(L)0.8cm x (W)0.6cm.Base of wound is 100% necrotic with marginal erythema along borders . Edges adherent to base of wound.. Non-Blanchable erythema without induration distal/lateral R foot (L)1.5cm x (W)1.5cm. Non-Blanchable erythema without induration R Hallux. Tx.Plan: Cleanse Sacral wound with Saline. Apply Therahoney. Apply Moisture Barrier Paste periwound. Cover with Optifoam drsg. Change every 3 days and prn. Cleanse L Trochanteric wound with Saline.Apply Therhaoney.Apply Moisture Barrier paste Periwound. Cover with Optifoam drsg. Change every 3 days and prn. Apply Moisture Barrier Paste to R and L ischium. Cover each site with Optifoam drsg. Change every 3 days and prn. Cover R hip /R Trochanter with Optifoam drsgs. Change every 7 days and prn. Apply Cavilon Skin Barrier to R heel , R 1st metatarsal,R hallux, Distal /Lateral R foot. Cover each Pressure Injury with Optifoam drsg. Change every 7 days and prn. Apply Cavilon Skin Barrier o L Heel , L Hallux, Distal lateral L Foot . Cover each Pressure Injury with Optifoam drsg. Change every 7 days and prn. Reposition at least every 2hours or as tolerated. Off-load heels with Pillow. APM/SOLOMON Mattress Overlay. (3) UTI (urinary tract infection) (4) Pneumonia (5) Sepsis Assessment & Plan: leukocytosis lactic acidosis malnutrition underweight bmi 13 micro noted on abx as per ID cont abx wounds unlikely etiology will follow with local care and evaluation to ensure improving thank you There is a slight degree of image degradation due to motion artifact. The right upper lobe is largely clear following may be some interstitial septal thickening in the apex. The right middle lobe is clear. The right lower lobe demonstrates some atelectasis at the right lung base. There is also a focal 6 mm nodular opacity, image 50 series 5. There is a vague mosaic attenuation pattern. Left upper lobe demonstrates scattered areas of mosaic attenuation superiorly image 10 of series 5 demonstrates a 3 mm left upper lobe nodule.. Irregular consolidative opacities are seen in the inferior left upper lobe. More extensive consolidation in a patchy and irregular distribution are seen in the left lower lobe. There is a small left pleural effusion. The heart is upper limits of normal in size. The ascending thoracic aorta is mildly ectatic. No mediastinal or hilar mass or adenopathy. Unremarkable. No axillary or chest wall mass or adenopathy demonstrated. The bones are unremarkable except for minimal degenerative spondylosis changes and slight anterior bowing of the sternum. The included lung bases demonstrate a gastrostomy which appears well-positioned. There is trace ascites Impression: Opacities in the left lower lobe and also to a lesser extent in the left upper lobe and minimally in the right lower lobe. Appearance is consistent with consolidation rather than mass. Most likely represents pneumonia, appearance nonspecific as regards etiology. Patchy pulmonary edema also possible, among other possibilities Small left pleural effusion Bilateral small nodules, as described. No further follow-up necessary if there are no risk factors for lung carcinoma. There are significant risk factors, then short interval follow-up CT in 6-12 months is recommended Trace ascites ICD Codes: A41.9 - Sepsis, unspecified organism SNOMED: 31224476 (8) UTI (urinary tract infection) ICD Codes: N39.0 - Urinary tract infection, site not specified SNOMED: 56301853 (9) Pneumonia ICD Codes: J18.9 - Pneumonia, unspecified organism SNOMED: 404398965 (10) PEG (percutaneous endoscopic gastrostomy) adjustment/replacement/removal ICD Codes: Z43.1 - Encounter for attention to gastrostomy SNOMED: 648327663, 937616227 Chao Ovalle Jul 09, 2020 14:20
--- NOTE | 2020-07-09 14:43 | Diagnostic Imaging Report ---
Indication: Shortness of breath, extremity pain Technique: Grayscale and duplex images of the bilateral lower extremity veins Comparison: 06/10/2020 Findings: On the right, grayscale and duplex images demonstrate incompletely occlusive thrombus within the right common femoral vein. The remainder of the right lower extremity venous segments are completely patent without evidence of intraluminal thrombus. On the left, grayscale and duplex images demonstrate no evidence of intraluminal thrombus. Normal phasic Doppler waveforms, demonstrating normal augmentation response and no evidence of valvular insufficiency. Greater saphenous vein(s) and tibial veins are patent. Normal compressibility. Impression: Positive for right lower extremity common femoral deep venous thrombosis
[2020-07-09] MEDS ORDERED: PRO-STAT LIQUID30 ML ORAL (15:31)
[2020-07-09] MEDS ORDERED: MILK OF MA400 MG/51 GT (15:37)
[2020-07-09 16:00] VITALS: BP 95/63
--- NOTE | 2020-07-09 16:48 | Diagnostic Imaging Report ---
Indication: Shortness of breath Technique: One view of the chest Comparison: 06/17/2020 Findings: The lungs are hyperinflated. Calcified granuloma is demonstrated in the left midlung. Some retrocardiac scarring is noted. There is central bronchial wall thickening. No acute infiltrates, effusions, or congestion. Impression: No acute process
--- NOTE | 2020-07-09 19:09 | Diagnostic Imaging Report ---
EXAM: US Abdomen Complete CLINICAL HISTORY: ABD PAIN TECHNIQUE: Real-time ultrasound of the abdomen with image documentation. COMPARISON: No relevant prior studies available. FINDINGS: Liver: Unremarkable. No mass. No intrahepatic bile duct dilation. Gallbladder: Unremarkable. No gallstones. Common bile duct: Unremarkable as visualized. No stones. No dilation. Pancreas: Unremarkable as visualized. Kidneys: Unremarkable. No stones. No solid mass. No hydronephrosis. Spleen: Limited visualization due to overlying ribs. Grossly unremarkable. Aorta: Unremarkable. No aneurysm. Inferior vena cava: Unremarkable. IMPRESSION: Unremarkable abdominal ultrasound.
[2020-07-09 20:00] VITALS: BP 108/68
[2020-07-09] MEDS ORDERED: cefTRIAXone 1 GM in D5W 55 ML IVPB SCH (21:00)
[2020-07-10] VITALS: BP 104/56
[2020-07-10 04:00] VITALS: BP 113/54
[2020-07-10] MEDS: NovoLOG Insulin Flexpen SUBQ SCH ×4 (06:30→21:00)
--- NOTE | 2020-07-10 06:42 | Hematology/Onc Progress Note ---
Assessment/Plan Assessment/Plan Internal Med Progress Note Covering for Dr. Abarca Review of Systems All Other Systems: negative except mentioned in HPI Physical Exam Sp02 EP Interpretation: reviewed, normal General Appearance: no apparent distress, non-verbal ++contracted Head: normocephalic, atraumatic ENT: hearing grossly normal, no angioedema Respiratory: chest non-tender, lungs clear, normal breath sounds,++2l Nc Cardiovascular: no edema, tachycardia Gastrointestinal: normal bowel sounds, non tender, soft, ++gt Rectal: deferred Musculoskeletal: normal inspection Neurologic: alert, motor strength/tone normal, no focal defects Skin: other - See RN skin exam. Lymphatic: no adenopathy Gu: valderrama+++ Labs: reviewed Meds: noted Imaging Rate: tachycardiac Rhythm: other - S.tachycardia ST Segments: other - NSST findings Rhythm Strip Diag. Results EP Interpretation: yes Rate: 90's Rhythm: NSR, no PVC's, no ectopy Chest X-Ray Diagnostic Results Chest X-Ray Diagnostic Results : Chest X-Ray Ordered: Yes # of Views/Limited/Complete: 1 View Indication: Other EP Interpretation: Yes Interpretation: no consolidation, no effusion, no pneumothorax, no acute cardiopulmonary disease Impression: No acute disease Electronically Signed by: Kristina Rosario DO Assessment and Recs # Sepsis due to Pyelonephritis --> septic protocol started --> is on ivfs --> abx as per ID ceftriaxone --> imaging noted --> urine culture sens and spec # Positive for right lower extremity common femoral deep venous thrombosis --> anticoagulation has been started --> does have Elevated ddimer # Anemia due to chronic disease --> panel as needed -> hgb 10.7 # Leukocytosis due to infection --> per ID abx # Fever with flu like symptoms --> r/o covid19 --> due to above # HL --> lipitor and asa # Tachycardia --> ivfs should improve # Dvt ppx lovenox sq Subjective Allergies: Coded Allergies: ERYTHROMYCIN BASE (Verified Allergy, Unknown, 11/12/16) Objective Objective Current Medications Medications (Trade) Dose Ordered Sig/Alvarado Route PRN Reason Start Time Stop Time Status Last Admin Dose Admin Acetaminophen (Tylenol) 650 mg Q4H PRN ORAL MILD PAIN/TEMP > 101F 07/09/20 02:30 08/08/20 02:29 Ascorbic Acid (Vitamin C) 500 mg DAILY ORAL 07/09/20 09:00 08/08/20 08:59 07/09/20 09:25 Atorvastatin Calcium (Lipitor) 10 mg BEDTIME GT 07/09/20 21:00 10/07/20 20:59 07/09/20 21:45 Bisacodyl (Dulcolax) 10 mg DAILY PRN RECTAL Constipation 07/09/20 02:30 10/07/20 02:29 Ceftriaxone Sodium 1 gm/ Dextrose 55 ml @ 110 mls/hr Q24H IVPB 07/09/20 21:00 07/16/20 20:59 07/09/20 21:45 Clonidine HCl (Catapres Tab) 0.1 mg Q8HR PRN GT HYPERTENSION 07/09/20 02:30 10/07/20 02:29 UNV Dextrose 1,000 ml @ 75 mls/hr [id number] IV 07/09/20 14:15 08/08/20 14:14 07/10/20 03:23 Dextrose (Dextrose 50%) 25 ml Q30M PRN IV Hypoglycemia 07/09/20 02:45 10/07/20 02:44 Dextrose (Dextrose 50%) 50 ml Q30M PRN IV Hypoglycemia 07/09/20 02:45 10/07/20 02:44 Heparin Sodium (Porcine) (Heparin 5000 units/ml) 5,000 units EVERY 12 HOURS SUBQ 07/09/20 09:00 08/23/20 08:59 07/09/20 21:46 Insulin Aspart (NovoLOG) BEFORE MEALS AND HS SUBQ 07/09/20 06:30 10/07/20 06:29 Levetiracetam (Keppra) 500 mg Q12HR GT 07/09/20 09:00 08/08/20 08:59 07/09/20 21:45 Multivitamins Therapeutic (Therapeutic Multivitamin) 1 ea DAILY ORAL 07/09/20 09:00 08/08/20 08:59 07/09/20 09:25 Potassium Chloride (K-Dur) 40 meq TWICE A DAY ORAL 07/09/20 09:00 10/07/20 08:59 07/09/20 17:58 Last 24 Hour Vital Signs Date Time Temp Pulse Resp B/P (MAP) Pulse Ox O2 Delivery O2 Flow Rate FiO2 07/10/20 04:00 98.2 96 20 113/54 (73) 98 07/10/20 00:00 98.2 95 18 104/56 (72) 97 07/09/20 21:00 Nasal Cannula 3.0 07/09/20 20:00 98.1 87 20 108/68 (81) 99 07/09/20 16:00 97.6 80 19 95/63 (74) 96 07/09/20 12:00 98.0 71 17 95/60 (72) 99 07/09/20 09:00 Nasal Cannula 3.0 07/09/20 08:00 98.0 83 20 100/60 (73) 99 07/09/20 04:00 97.8 84 20 93/52 (66) 98 07/09/20 03:38 Nasal Cannula 2.0 07/09/20 01:10 98.1 92 18 103/90 95 Nasal Cannula 3.0 07/09/20 00:42 97.5 100 20 113/50 95 Nasal Cannula 2.0 07/08/20 23:40 97.1 92 18 93/43 99 Nasal Cannula 1.0 07/08/20 22:22 98.2 104 20 99/56 97 Nasal Cannula 2.0 07/08/20 21:23 98.2 105 16 94/56 98 Nasal Cannula 2.0 07/08/20 19:55 98.0 110 20 105/58 98 Nasal Cannula 2.0 07/08/20 19:55 110 20 Nasal Cannula 2.0 07/08/20 19:45 99.3 116 26 108/62 (77) 95 Nasal Cannula 2.0 Intake and Output 07/09/20 07/10/20 19:00 07:00 Intake Total 500 ml Balance 500 ml Intake Free Water 100 ml Tube Feeding 400 ml # Bowel Movements 1 1 Labs Test 07/08/20 20:40 07/08/20 21:00 07/09/20 05:29 07/09/20 06:08 White Blood Count 20.3 K/UL (4.8-10.8) 21.5 K/UL (4.8-10.8) Red Blood Count 4.61 M/UL (4.20-5.40) 3.72 M/UL (4.20-5.40) Hemoglobin 13.6 G/DL (12.0-16.0) 10.7 G/DL (12.0-16.0) Hematocrit 41.8 % (37.0-47.0) 35.8 % (37.0-47.0) Mean Corpuscular Volume 91 FL (80-99) 96 FL (80-99) Mean Corpuscular Hemoglobin 29.5 PG (27.0-31.0) 28.7 PG (27.0-31.0) Mean Corpuscular Hemoglobin Concent 32.5 G/DL (32.0-36.0) 29.8 G/DL (32.0-36.0) Red Cell Distribution Width 16.1 % (11.6-14.8) 14.9 % (11.6-14.8) Platelet Count 263 K/UL (150-450) 204 K/UL (150-450) Mean Platelet Volume 11.2 FL (6.5-10.1) 10.1 FL (6.5-10.1) Neutrophils (%) (Auto) % (45.0-75.0) % (45.0-75.0) Lymphocytes (%) (Auto) % (20.0-45.0) % (20.0-45.0) Monocytes (%) (Auto) % (1.0-10.0) % (1.0-10.0) Eosinophils (%) (Auto) % (0.0-3.0) % (0.0-3.0) Basophils (%) (Auto) % (0.0-2.0) % (0.0-2.0) Differential Total Cells Counted 100 100 Neutrophils % (Manual) 87 % (45-75) 86 % (45-75) Lymphocytes % (Manual) 6 % (20-45) 7 % (20-45) Monocytes % (Manual) 4 % (1-10) 7 % (1-10) Eosinophils % (Manual) 0 % (0-3) 0 % (0-3) Basophils % (Manual) 0 % (0-2) 0 % (0-2) Band Neutrophils 3 % (0-8) 0 % (0-8) Platelet Estimate Adequate Adequate Platelet Morphology Normal Giant Platelets Occasional Anisocytosis 1+ 1+ Prothrombin Time 12.6 SEC (9.30-11.50) Prothromb Time International Ratio 1.2 (0.9-1.1) Activated Partial Thromboplast Time 26 SEC (23-33) D-Dimer 1.57 mg/L FEU (0.00-0.49) Sodium Level 148 MMOL/L (136-145) 151 MMOL/L (136-145) Potassium Level 3.1 MMOL/L (3.5-5.1) 3.6 MMOL/L (3.5-5.1) Chloride Level 112 MMOL/L (98-107) 117 MMOL/L (98-107) Carbon Dioxide Level 29 MMOL/L (21-32) 27 MMOL/L (21-32) Anion Gap 7 mmol/L (5-15) 7 mmol/L (5-15) Blood Urea Nitrogen 46 mg/dL (7-18) 32 mg/dL (7-18) Creatinine 0.7 MG/DL (0.55-1.30) 0.5 MG/DL (0.55-1.30) Estimat Glomerular Filtration Rate > 60 mL/min (>60) > 60 mL/min (>60) Glucose Level 145 MG/DL (74-106) 111 MG/DL (74-106) Lactic Acid Level 1.80 mmol/L (0.4-2.0) Calcium Level 8.4 MG/DL (8.5-10.1) 7.4 MG/DL (8.5-10.1) Ferritin 548 NG/ML (8-388) Total Bilirubin 0.3 MG/DL (0.2-1.0) Aspartate Amino Transf (AST/SGOT) 67 U/L (15-37) Alanine Aminotransferase (ALT/SGPT) 120 U/L (12-78) Alkaline Phosphatase 92 U/L (46-116) Lactate Dehydrogenase 209 U/L (81-234) Total Creatine Kinase 112 U/L (26-308) Creatine Kinase MB < 0.5 NG/ML (0.0-3.6) Creatine Kinase MB Relative Index 0.4 Troponin I 0.017 ng/mL (0.000-0.056) C-Reactive Protein, Quantitative 13.3 mg/dL (0.00-0.90) Pro-B-Type Natriuretic Peptide 804 pg/mL (0-125) Total Protein 7.5 G/DL (6.4-8.2) Albumin 1.9 G/DL (3.4-5.0) Globulin 5.6 g/dL Albumin/Globulin Ratio 0.3 (1.0-2.7) Lipase 124 U/L (73-393) Urine Color Yellow Urine Appearance Slightly cloudy Urine pH 5 (4.5-8.0) Urine Specific [place] 1.020 (1.005-1.035) Urine Protein 3+ (NEGATIVE) Urine Glucose (UA) Negative (NEGATIVE) Urine Ketones 1+ (NEGATIVE) Urine Blood 2+ (NEGATIVE) Urine Nitrite Negative (NEGATIVE) Urine Bilirubin Negative (NEGATIVE) Urine Urobilinogen Normal MG/DL (0.0-1.0) Urine Leukocyte Esterase 2+ (NEGATIVE) Urine RBC 5-10 /HPF (0 - 2) Urine WBC Tntc /HPF (0 - 2) Urine Squamous Epithelial Cells Occasional /LPF Urine Bacteria Few /HPF (NONE) POC Whole Blood Glucose 116 MG/DL (74-106) Test 07/09/20 10:15 07/09/20 12:04 07/09/20 16:21 07/09/20 19:56 HIV (1&2) Antibody Rapid Negative (NEGATIVE) POC Whole Blood Glucose 107 MG/DL (74-106) 79 MG/DL (74-106) 123 MG/DL (74-106) Height (Feet): 5 Height (Inches): 1.00 Weight (Pounds): 99 Nate Begum MD Jul 10, 2020 06:42
[2020-07-10 07:20] LABS: HEMATOCRIT 28.5 % (37.0-47.0); HEMOGLOBIN 8.8 G/DL (12.0-16.0); MEAN CORPUSCULAR VOLUME 96 FL (80-99); PLATELET COUNT 175 K/UL (150-450); RED BLOOD COUNT 2.97 M/UL (4.20-5.40); WHITE BLOOD COUNT 20.1 K/UL (4.8-10.8)
[2020-07-10 08:00] VITALS: BP 104/53
[2020-07-10 08:02] LABS: ALANINE AMINOTRANSFERASE 55 U/L (12-78); ALBUMIN 1.9 G/DL (3.4-5.0); ALBUMIN/GLOBULIN RATIO 0.5 (1.0-2.7); ALKALINE PHOSPHATASE 72 U/L (46-116); ANION GAP 6 mmol/L (5-15); ASPARTATE AMINO TRANSFERASE 24 U/L (15-37); BILIRUBIN,TOTAL 0.3 MG/DL (0.2-1.0); BLOOD UREA NITROGEN 18 mg/dL (7-18); CALCIUM 7.7 MG/DL (8.5-10.1); CARBON DIOXIDE 27 MMOL/L (21-32); CHLORIDE 111 MMOL/L (98-107); CREATININE 0.4 MG/DL (0.55-1.30); FERRITIN 494 NG/ML (8-388); PHOSPHORUS 1.1 MG/DL (2.5-4.9); SODIUM 145 MMOL/L (136-145)
[2020-07-10 08:12] LABS: POTASSIUM 2.8 MMOL/L (3.5-5.1)
[2020-07-10 08:35] LABS: % IRON SATURATION 12 % (15-50); IRON 16 ug/dL (50-175); TOTAL IRON BINDING CAPACITY 135 ug/dL (250-450)
--- NOTE | 2020-07-10 09:08 | Infectious Diseases Prog Note ---
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 but with fever at [facility] [employer] Lymphopenia Hypoxic w/ NC O2 requirement, r/o PNA 07/08 BCx NTD UA+, UCx <10k GNR COVID rapid test neg, PCR p CXR: No acute process +RLE DVT on US 07/09 Elevated LFTs 67 / 120 Abd TTP 06/29 Abd US wnl Acute hep panel neg Cr 0.5 HIV screen neg PMH: DM CHF Dementia SNF resident Plan: Stop CTX 1g IV daily for now #2 Start Zosyn #1 given persistent leukocytosis Tx of RLE DVT per primary, on lovenox BID Consider CTA chest to r/o PE D-dimer F/u COVID PCR F/u BCx Trend WBC Monitor CBC/CMP Monitor temp curve, hemodynamics Monitor resp status D/w RN Thank you for this consult. [facility] will continue to follow. Subjective Allergies: Coded Allergies: ERYTHROMYCIN BASE (Verified Allergy, Unknown, 11/12/16) AF WBC stable at 20 +RLE DVT NAD on 3L NC Objective Last 24 Hour Vital Signs Date Time Temp Pulse Resp B/P (MAP) Pulse Ox O2 Delivery O2 Flow Rate FiO2 07/10/20 04:00 98.2 96 20 113/54 (73) 98 07/10/20 00:00 98.2 95 18 104/56 (72) 97 07/09/20 21:00 Nasal Cannula 3.0 07/09/20 20:00 98.1 87 20 108/68 (81) 99 07/09/20 16:00 97.6 80 19 95/63 (74) 96 07/09/20 12:00 98.0 71 17 95/60 (72) 99 Height (Feet): 5 Height (Inches): 1.00 Weight (Pounds): 99 Cardiovascular: normal peripheral pulses Gen: NAD HEENT: NCAT Pulm: BL chest rise Abd: Non-distended Ext: No c/c/e Skin: No visible rashes Neuro: Awake Microbiology Date/Time Source Procedure Growth Status 07/08/20 21:00 Urine,Clean Catch Urine Culture - Final Gram Negative Kenneth Complete 07/08/20 20:40 Nasopharynx SARS-CoV-2 RdRp Gene Assay - Final Complete 07/08/20 20:30 Blood Blood Culture - Preliminary NO GROWTH AFTER 24 HOURS Resulted 07/08/20 20:30 Blood Blood Culture - Preliminary NO GROWTH AFTER 24 HOURS Resulted Laboratory Tests Test 07/09/20 10:15 07/09/20 12:04 07/09/20 16:21 07/09/20 19:56 Hepatitis A IgM Antibody Negative (Negative) Hepatitis B Surface Antigen Negative (Negative) Hepatitis B Core IgM Antibody Negative (Negative) Hepatitis C Antibody 0.2 s/co ratio (0.0-0.9) HIV (1&2) Antibody Rapid Negative (NEGATIVE) POC Whole Blood Glucose 107 MG/DL (74-106) H 79 MG/DL (74-106) 123 MG/DL (74-106) H Test 07/10/20 05:40 White Blood Count 20.1 K/UL (4.8-10.8) H Red Blood Count 2.97 M/UL (4.20-5.40) L Hemoglobin 8.8 G/DL (12.0-16.0) L Hematocrit 28.5 % (37.0-47.0) L Mean Corpuscular Volume 96 FL (80-99) Mean Corpuscular Hemoglobin 29.6 PG (27.0-31.0) Mean Corpuscular Hemoglobin Concent 30.8 G/DL (32.0-36.0) L Red Cell Distribution Width 15.0 % (11.6-14.8) H Platelet Count 175 K/UL (150-450) Mean Platelet Volume 9.8 FL (6.5-10.1) Neutrophils (%) (Auto) % (45.0-75.0) Lymphocytes (%) (Auto) % (20.0-45.0) Monocytes (%) (Auto) % (1.0-10.0) Eosinophils (%) (Auto) % (0.0-3.0) Basophils (%) (Auto) % (0.0-2.0) Neutrophils % (Manual) Pending Lymphocytes % (Manual) Pending Platelet Estimate Pending Platelet Morphology Pending Sodium Level 145 MMOL/L (136-145) Potassium Level 2.8 MMOL/L (3.5-5.1) L Chloride Level 111 MMOL/L (98-107) H Carbon Dioxide Level 27 MMOL/L (21-32) Anion Gap 6 mmol/L (5-15) Blood Urea Nitrogen 18 mg/dL (7-18) Creatinine 0.4 MG/DL (0.55-1.30) L Estimat Glomerular Filtration Rate > 60 mL/min (>60) Glucose Level 132 MG/DL (74-106) H Uric Acid 1.9 MG/DL (2.6-7.2) L Calcium Level 7.7 MG/DL (8.5-10.1) L Phosphorus Level 1.1 MG/DL (2.5-4.9) L Magnesium Level 1.9 MG/DL (1.8-2.4) Iron Level 16 ug/dL (50-175) L Total Iron Binding Capacity 135 ug/dL (250-450) L Percent Iron Saturation 12 % (15-50) L Unsaturated Iron Binding 119 ug/dL (112-346) Ferritin 494 NG/ML (8-388) H Total Bilirubin 0.3 MG/DL (0.2-1.0) Aspartate Amino Transf (AST/SGOT) 24 U/L (15-37) Alanine Aminotransferase (ALT/SGPT) 55 U/L (12-78) Alkaline Phosphatase 72 U/L (46-116) C-Reactive Protein, Quantitative 7.0 mg/dL (0.00-0.90) H Pro-B-Type Natriuretic Peptide 1426 pg/mL (0-125) H Total Protein 6.0 G/DL (6.4-8.2) L Albumin 1.9 G/DL (3.4-5.0) L Globulin 4.1 g/dL Albumin/Globulin Ratio 0.5 (1.0-2.7) L Vitamin B12 Level 471 PG/ML (193-986) Folate 17.0 NG/ML (8.6-58.9) Current Medications Medications (Trade) Dose Ordered Sig/Alvarado Route PRN Reason Start Time Stop Time Status Last Admin Dose Admin Acetaminophen (Tylenol) 650 mg Q4H PRN ORAL MILD PAIN/TEMP > 101F 07/09/20 02:30 08/08/20 02:29 Ascorbic Acid (Vitamin C) 500 mg DAILY ORAL 07/09/20 09:00 08/08/20 08:59 07/09/20 09:25 Atorvastatin Calcium (Lipitor) 10 mg BEDTIME GT 07/09/20 21:00 10/07/20 20:59 07/09/20 21:45 Bisacodyl (Dulcolax) 10 mg DAILY PRN RECTAL Constipation 07/09/20 02:30 10/07/20 02:29 Ceftriaxone Sodium 1 gm/ Dextrose 55 ml @ 110 mls/hr Q24H IVPB 07/09/20 21:00 07/16/20 20:59 07/09/20 21:45 Clonidine HCl (Catapres Tab) 0.1 mg Q8HR PRN GT HYPERTENSION 07/09/20 02:30 10/07/20 02:29 UNV Dextrose 1,000 ml @ 75 mls/hr [id number] IV 07/09/20 14:15 08/08/20 14:14 07/10/20 03:23 Dextrose (Dextrose 50%) 25 ml Q30M PRN IV Hypoglycemia 07/09/20 02:45 10/07/20 02:44 Dextrose (Dextrose 50%) 50 ml Q30M PRN IV Hypoglycemia 07/09/20 02:45 10/07/20 02:44 Enoxaparin Sodium (Lovenox) 40 mg Q12HR SUBQ 07/10/20 09:00 10/08/20 08:59 Insulin Aspart (NovoLOG) BEFORE MEALS AND HS SUBQ 07/09/20 06:30 10/07/20 06:29 Levetiracetam (Keppra) 500 mg Q12HR GT 07/09/20 09:00 08/08/20 08:59 07/09/20 21:45 Multivitamins Therapeutic (Therapeutic Multivitamin) 1 ea DAILY ORAL 07/09/20 09:00 08/08/20 08:59 07/09/20 09:25 Potassium Chloride (K-Dur) 40 meq TWICE A DAY ORAL 07/09/20 09:00 10/07/20 08:59 07/09/20 17:58 Beth Marsh M.D. Jul 10, 2020 09:08
[2020-07-10] MEDS: Multivitamin w/Minerals tab ORAL SCH (09:12)
[2020-07-10] MEDS: levETIRAcetam 500mg/5ml Liquid GT SCH ×2 (09:12→21:55)
[2020-07-10] MEDS: Ascorbic Acid 500mg tab ORAL SCH (09:12)
[2020-07-10] MEDS: Enoxaparin 40mg Inj SUBQ SCH ×2 (09:13→21:56)
[2020-07-10] MEDS: Piperacillin/Tazobactam 3.375 GM in NS 110 ML IVPB SCH ×2 (09:47→22:00)
[2020-07-10 12:00] VITALS: BP 105/58
--- NOTE | 2020-07-10 13:39 | Surgery Progress Note ---
Surgery Progress Note Subjective Additional Comments leukocytosis h/h trending down no active bleeding now transfuse prbc prn trend h/h Objective Last 24 Hour Vital Signs Date Time Temp Pulse Resp B/P (MAP) Pulse Ox O2 Delivery O2 Flow Rate FiO2 07/10/20 12:00 98.5 93 20 105/58 (74) 98 07/10/20 09:00 Nasal Cannula 3.0 07/10/20 08:00 98.8 91 20 104/53 (70) 99 07/10/20 04:00 98.2 96 20 113/54 (73) 98 07/10/20 00:00 98.2 95 18 104/56 (72) 97 07/09/20 21:00 Nasal Cannula 3.0 07/09/20 20:00 98.1 87 20 108/68 (81) 99 07/09/20 16:00 97.6 80 19 95/63 (74) 96 I&O Intake and Output 07/09/20 07/10/20 19:00 07:00 Intake Total 550 ml 825 ml Output Total 1600 ml Balance 550 ml -775 ml Intake Free Water 100 ml 200 ml IV Total 75 ml Tube Feeding 450 ml 550 ml Output Urine Total 1600 ml # Bowel Movements 1 1 Dressing: saturated Cardiovascular: RSR Respiratory: decreased breath sounds Abdomen: soft, non-tender, present bowel sounds, non-distended Extremities: no edema, no tenderness, no cyanosis Laboratory Tests Test 07/09/20 16:21 07/09/20 19:56 07/10/20 05:40 07/10/20 10:24 POC Whole Blood Glucose 79 MG/DL (74-106) 123 MG/DL (74-106) H White Blood Count 20.1 K/UL (4.8-10.8) H Red Blood Count 2.97 M/UL (4.20-5.40) L Hemoglobin 8.8 G/DL (12.0-16.0) L Hematocrit 28.5 % (37.0-47.0) L Mean Corpuscular Volume 96 FL (80-99) Mean Corpuscular Hemoglobin 29.6 PG (27.0-31.0) Mean Corpuscular Hemoglobin Concent 30.8 G/DL (32.0-36.0) L Red Cell Distribution Width 15.0 % (11.6-14.8) H Platelet Count 175 K/UL (150-450) Mean Platelet Volume 9.8 FL (6.5-10.1) Neutrophils (%) (Auto) % (45.0-75.0) Lymphocytes (%) (Auto) % (20.0-45.0) Monocytes (%) (Auto) % (1.0-10.0) Eosinophils (%) (Auto) % (0.0-3.0) Basophils (%) (Auto) % (0.0-2.0) Differential Total Cells Counted 100 Neutrophils % (Manual) 90 % (45-75) H Lymphocytes % (Manual) 8 % (20-45) L Monocytes % (Manual) 1 % (1-10) Eosinophils % (Manual) 1 % (0-3) Basophils % (Manual) 0 % (0-2) Band Neutrophils 0 % (0-8) Platelet Estimate Adequate Platelet Morphology Normal Hypochromasia 1+ Anisocytosis 1+ Sodium Level 145 MMOL/L (136-145) Potassium Level 2.8 MMOL/L (3.5-5.1) L Chloride Level 111 MMOL/L (98-107) H Carbon Dioxide Level 27 MMOL/L (21-32) Anion Gap 6 mmol/L (5-15) Blood Urea Nitrogen 18 mg/dL (7-18) Creatinine 0.4 MG/DL (0.55-1.30) L Estimat Glomerular Filtration Rate > 60 mL/min (>60) Glucose Level 132 MG/DL (74-106) H Uric Acid 1.9 MG/DL (2.6-7.2) L Calcium Level 7.7 MG/DL (8.5-10.1) L Phosphorus Level 1.1 MG/DL (2.5-4.9) L Magnesium Level 1.9 MG/DL (1.8-2.4) Iron Level 16 ug/dL (50-175) L Total Iron Binding Capacity 135 ug/dL (250-450) L Percent Iron Saturation 12 % (15-50) L Unsaturated Iron Binding 119 ug/dL (112-346) Ferritin 494 NG/ML (8-388) H Total Bilirubin 0.3 MG/DL (0.2-1.0) Aspartate Amino Transf (AST/SGOT) 24 U/L (15-37) Alanine Aminotransferase (ALT/SGPT) 55 U/L (12-78) Alkaline Phosphatase 72 U/L (46-116) C-Reactive Protein, Quantitative 7.0 mg/dL (0.00-0.90) H Pro-B-Type Natriuretic Peptide 1426 pg/mL (0-125) H Total Protein 6.0 G/DL (6.4-8.2) L Albumin 1.9 G/DL (3.4-5.0) L Globulin 4.1 g/dL Albumin/Globulin Ratio 0.5 (1.0-2.7) L Vitamin B12 Level 471 PG/ML (193-986) Folate 17.0 NG/ML (8.6-58.9) D-Dimer 1.50 mg/L FEU (0.00-0.49) H Plan Problems: (1) Fever (2) Leukocytosis Assessment & Plan: on abx id input appreciated wounds not infected nutrition (3) Tachycardia (4) Decubitus skin ulcer (5) Pyelonephritis (6) Malnutrition (7) Sepsis Assessment & Plan: ill appearing poor skin turgor leukocytosis anemia h/h low trending prbc prn Needs based on underweight, DM 35.5kg 30-40 kcals/kg [id number] total kcals 1.25-2 g protein/kg 44-71 g total protein 25-35ml/kcal mL/kg [phone] total fluid mLs NUTRITION DIAGNOSIS: Swallowing difficulty R/T dysphagia as evidenced by pt is Gtube dependent. ENTERAL NUTRITION RECOMMENDATIONS: Glucerna 1.2 @50ml x24 hrs to provide 1200ml, 1440 kcal, 72g pro, 966ml free H2O - As able rec carb control formula for h/o DM. - Start @30ml/hr for 6 hrs, advance as tolerated 10ml/hr q4-6 hrs to goal. - Flush per MD/ HOB over 30 degrees ADDITIONAL RECOMMENDATIONS: - Per SNF: 5'3" and 78lbs/35.45kg. - Check lytes daily, replete as needed - A1c for eval of glycemic control - Wound care: advanced per RN, f/up with WC RN. Add LINA BID w/ GT, Vit C 250mg BID (2) Decubitus skin ulcer Assessment & Plan: This is an emaciated pt whom presented on admission with Multiple Pressure Injuries. Unstageable Pressure Injury Sacrum (L)11cm x (W)10.5cm. Base of wound is 90% necrotic, surrounding 10% moist, erythematous borders. Edges adherent to base of wound. No odor or exudate noted. Unstageable Pressure Injury L trochanter(L)3.5cm x (W)5.5cm. Base of wound is 95% necrotic, 5% surrounding borders arleen. Edges adherent to base of wound. No odor or exudate noted.Periwound is pale. Non-Blanchable erythema without induration L Ischium. Non-Blanchable erythema without induration bony prominences of L Hip/L Trochanter/L Ischial tuberosity. DTPI L Heel(L)2.5cmx(W)2cm.Base of Pressure Injury is fluctuant, Maroon in colour with surrounding non-blanchable erythema. Non-Blanchable erythema without induration L Hallux (L)1cm x (W)2cm. DTPI R Heel (L)6cm x (W)8cm.Base of Pressure Injury is fluctuant and maroon in colour. Edges are adherent to base of Pressure Injury. Unstageable Pressure Injury dorsal R 1st metatarsal(L)0.8cm x (W)0.6cm.Base of wound is 100% necrotic with marginal erythema along borders . Edges adherent to base of wound.. Non-Blanchable erythema without induration distal/lateral R foot (L)1.5cm x (W)1.5cm. Non-Blanchable erythema without induration R Hallux. Tx.Plan: Cleanse Sacral wound with Saline. Apply Therahoney. Apply Moisture Barrier Paste periwound. Cover with Optifoam drsg. Change every 3 days and prn. Cleanse L Trochanteric wound with Saline.Apply Therhaoney.Apply Moisture Barrier paste Periwound. Cover with Optifoam drsg. Change every 3 days and prn. Apply Moisture Barrier Paste to R and L ischium. Cover each site with Optifoam drsg. Change every 3 days and prn. Cover R hip /R Trochanter with Optifoam drsgs. Change every 7 days and prn. Apply Cavilon Skin Barrier to R heel , R 1st metatarsal,R hallux, Distal /Lateral R foot. Cover each Pressure Injury with Optifoam drsg. Change every 7 days and prn. Apply Cavilon Skin Barrier o L Heel , L Hallux, Distal lateral L Foot . Cover each Pressure Injury with Optifoam drsg. Change every 7 days and prn. Reposition at least every 2hours or as tolerated. Off-load heels with Pillow. APM/SOLOMON Mattress Overlay. (3) UTI (urinary tract infection) (4) Pneumonia (5) Sepsis Assessment & Plan: leukocytosis lactic acidosis malnutrition underweight bmi 13 micro noted on abx as per ID cont abx wounds unlikely etiology will follow with local care and evaluation to ensure improving thank you There is a slight degree of image degradation due to motion artifact. The right upper lobe is largely clear following may be some interstitial septal thickening in the apex. The right middle lobe is clear. The right lower lobe demonstrates some atelectasis at the right lung base. There is also a focal 6 mm nodular opacity, image 50 series 5. There is a vague mosaic attenuation pattern. Left upper lobe demonstrates scattered areas of mosaic attenuation superiorly image 10 of series 5 demonstrates a 3 mm left upper lobe nodule.. Irregular consolidative opacities are seen in the inferior left upper lobe. More extensive consolidation in a patchy and irregular distribution are seen in the left lower lobe. There is a small left pleural effusion. The heart is upper limits of normal in size. The ascending thoracic aorta is mildly ectatic. No mediastinal or hilar mass or adenopathy. Unremarkable. No axillary or chest wall mass or adenopathy demonstrated. The bones are unremarkable except for minimal degenerative spondylosis changes and slight anterior bowing of the sternum. The included lung bases demonstrate a gastrostomy which appears well-positioned. There is trace ascites Impression: Opacities in the left lower lobe and also to a lesser extent in the left upper lobe and minimally in the right lower lobe. Appearance is consistent with consolidation rather than mass. Most likely represents pneumonia, appearance nonspecific as regards etiology. Patchy pulmonary edema also possible, among other possibilities Small left pleural effusion Bilateral small nodules, as described. No further follow-up necessary if there are no risk factors for lung carcinoma. There are significant risk factors, then short interval follow-up CT in 6-12 months is recommended Trace ascites (8) UTI (urinary tract infection) (9) Pneumonia (10) PEG (percutaneous endoscopic gastrostomy) adjustment/replacement/removal Chao Ovalle Jul 10, 2020 13:39
[2020-07-10] MEDS: Potassium Phosphate 15mm/250ml 250 ML IVPB SCH ×2 (14:41→20:15)
[2020-07-10 16:00] VITALS: BP 107/57
--- NOTE | 2020-07-10 16:52 | Nephrology Progress Note ---
Assessment/Plan Problem List: (1) Dehydration (2) Electrolyte imbalance (3) UTI (urinary tract infection) (4) Sepsis (5) Malnutrition (6) Pyelonephritis (7) Leukocytosis Assessment Electrolyte imbalance, hypernatremia, hypokalemia Pyelonephritis, leukocytosis Fever, tachycardia Plan July 10: Serum sodium improved. Low potassium and low phosphorus addressed. IV down to 50 cc an hour. Stable from renal standpoint of view. Continue to monitor electrolytes and chemistries. Previously: Change IV to D5W Potassium supplement Anemia work-up Albumin bolus Monitor electrolytes and renal parameters Per orders Objective Objective Last 24 Hour Vital Signs Date Time Temp Pulse Resp B/P (MAP) Pulse Ox O2 Delivery O2 Flow Rate FiO2 07/10/20 16:00 98.5 74 20 107/57 (74) 97 07/10/20 12:00 98.5 93 20 105/58 (74) 98 07/10/20 09:00 Nasal Cannula 3.0 07/10/20 08:00 98.8 91 20 104/53 (70) 99 07/10/20 04:00 98.2 96 20 113/54 (73) 98 07/10/20 00:00 98.2 95 18 104/56 (72) 97 07/09/20 21:00 Nasal Cannula 3.0 07/09/20 20:00 98.1 87 20 108/68 (81) 99 Intake and Output 07/09/20 07/10/20 19:00 07:00 Intake Total 550 ml 875 ml Output Total 1600 ml Balance 550 ml -725 ml Intake Free Water 100 ml 200 ml IV Total 75 ml Tube Feeding 450 ml 600 ml Output Urine Total 1600 ml # Bowel Movements 1 1 Laboratory Tests 07/09/20 19:56: POC Whole Blood Glucose 123H 07/10/20 05:40: White Blood Count 20.1H, Red Blood Count 2.97L, Hemoglobin 8.8L, Hematocrit 28.5L, Mean Corpuscular Volume 96, Mean Corpuscular Hemoglobin 29.6, Mean Corpuscular Hemoglobin Concent 30.8L, Red Cell Distribution Width 15.0H, Platelet Count 175, Mean Platelet Volume 9.8, Neutrophils (%) (Auto) , Lymphocytes (%) (Auto) , Monocytes (%) (Auto) , Eosinophils (%) (Auto) , Basophils (%) (Auto) , Differential Total Cells Counted 100, Neutrophils % (Manual) 90H, Lymphocytes % (Manual) 8L, Monocytes % (Manual) 1, Eosinophils % (Manual) 1, Basophils % (Manual) 0, Band Neutrophils 0, Platelet Estimate Adequate, Platelet Morphology Normal, Hypochromasia 1+, Anisocytosis 1+, Sodium Level 145, Potassium Level 2.8L, Chloride Level 111H, Carbon Dioxide Level 27, Anion Gap 6, Blood Urea Nitrogen 18, Creatinine 0.4L, Estimat Glomerular Filtration Rate > 60, Glucose Level 132H, Uric Acid 1.9L, Calcium Level 7.7L, Phosphorus Level 1.1L, Magnesium Level 1.9, Iron Level 16L, Total Iron Binding Capacity 135L, Percent Iron Saturation 12L, Unsaturated Iron Binding 119, Ferritin 494H, Total Bilirubin 0.3, Aspartate Amino Transf (AST/SGOT) 24, Alanine Aminotransferase (ALT/SGPT) 55, Alkaline Phosphatase 72, C-Reactive Protein, Quantitative 7.0H, Pro-B-Type Natriuretic Peptide 1426H, Total Protein 6.0L, Albumin 1.9L, Globulin 4.1, Albumin/Globulin Ratio 0.5L, Vitamin B12 Level 471, Folate 17.0 07/10/20 10:24: D-Dimer 1.50H Height (Feet): 5 Height (Inches): 1.00 Weight (Pounds): 99 Gabriele Honeycutt MD Jul 10, 2020 16:52
[2020-07-10 20:00] VITALS: BP 116/57
[2020-07-11] VITALS: BP 110/58
[2020-07-11 04:00] VITALS: BP 118/59
[2020-07-11] MEDS: Piperacillin/Tazobactam 3.375 GM in NS 110 ML IVPB SCH ×3 (05:52→21:33)
[2020-07-11] MEDS: NovoLOG Insulin Flexpen SUBQ SCH ×4 (05:53→21:00)
[2020-07-11 08:00] VITALS: BP 88/98
[2020-07-11 08:06] LABS: ALANINE AMINOTRANSFERASE 46 U/L (12-78); ALBUMIN/GLOBULIN RATIO 0.4 (1.0-2.7); ALKALINE PHOSPHATASE 87 U/L (46-116); ANION GAP 7 mmol/L (5-15); ASPARTATE AMINO TRANSFERASE 23 U/L (15-37); BILIRUBIN,TOTAL 0.4 MG/DL (0.2-1.0); BLOOD UREA NITROGEN 10 mg/dL (7-18); CALCIUM 8.7 MG/DL (8.5-10.1); CARBON DIOXIDE 28 MMOL/L (21-32); CHLORIDE 106 MMOL/L (98-107); CREATININE 0.3 MG/DL (0.55-1.30); PHOSPHORUS 2.6 MG/DL (2.5-4.9); POTASSIUM 3.6 MMOL/L (3.5-5.1); SODIUM 141 MMOL/L (136-145)
[2020-07-11 08:09] LABS: BASOPHILS % (AUTO) 0.3 % (0.0-2.0); EOSINOPHILS % (AUTO) 1.1 % (0.0-3.0); HEMATOCRIT 33.3 % (37.0-47.0); HEMOGLOBIN 10.5 G/DL (12.0-16.0); LYMPHOCYTES % (AUTO) 9.7 % (20.0-45.0); MEAN CORPUSCULAR VOLUME 94 FL (80-99); MONOCYTES % (AUTO) 4.4 % (1.0-10.0); NEUTROPHILS % (AUTO) 84.5 % (45.0-75.0); PLATELET COUNT 179 K/UL (150-450); RED BLOOD COUNT 3.55 M/UL (4.20-5.40); WHITE BLOOD COUNT 17.7 K/UL (4.8-10.8)
[2020-07-11] MEDS: Ascorbic Acid 500mg tab ORAL SCH (08:56)
[2020-07-11] MEDS: levETIRAcetam 500mg/5ml Liquid GT SCH ×2 (08:56→21:32)
[2020-07-11] MEDS: Multivitamin w/Minerals tab ORAL SCH (08:56)
[2020-07-11] MEDS: Enoxaparin 40mg Inj SUBQ SCH ×2 (08:57→21:32)
--- NOTE | 2020-07-11 10:47 | Hematology/Onc Progress Note ---
Assessment/Plan Assessment/Plan Internal Med Progress Note Covering for Dr. Abarca Chest X-Ray Diagnostic Results Chest X-Ray Diagnostic Results : Chest X-Ray Ordered: Yes # of Views/Limited/Complete: 1 View Indication: Other EP Interpretation: Yes Interpretation: no consolidation, no effusion, no pneumothorax, no acute car diopulmonary disease Impression: No acute disease Electronically Signed by: Kristina Rosario DO Assessment and Recs # Sepsis due to Pyelonephritis --> septic protocol started --> is on ivfs --> abx as per ID ceftriaxone --> imaging noted --> urine culture sens and spec # Positive for right lower extremity common femoral deep venous thrombosis --> anticoagulation has been started --> does have Elevated ddimer # Anemia due to chronic disease --> panel as needed -> hgb 10.7 # Leukocytosis due to infection --> per ID abx # Fever with flu like symptoms --> r/o covid19 --> due to above # HL --> lipitor and asa # Tachycardia --> ivfs should improve # Dvt ppx lovenox sq Subjective Allergies: Coded Allergies: ERYTHROMYCIN BASE (Verified Allergy, Unknown, 11/12/16) Subjective Subjective: 1/2: non verbal, no acute bleeding reported. Objective Objective Current Medications Medications (Trade) Dose Ordered Sig/Alvarado Route PRN Reason Start Time Stop Time Status Last Admin Dose Admin Acetaminophen (Tylenol) 650 mg Q4H PRN ORAL MILD PAIN/TEMP > 101F 07/09/20 02:30 08/08/20 02:29 Ascorbic Acid (Vitamin C) 500 mg DAILY ORAL 07/09/20 09:00 08/08/20 08:59 07/11/20 08:56 Atorvastatin Calcium (Lipitor) 10 mg BEDTIME GT 07/09/20 21:00 10/07/20 20:59 07/10/20 21:55 Bisacodyl (Dulcolax) 10 mg DAILY PRN RECTAL Constipation 07/09/20 02:30 10/07/20 02:29 Clonidine HCl (Catapres Tab) 0.1 mg Q8HR PRN GT HYPERTENSION 07/09/20 02:30 10/07/20 02:29 UNV Dextrose 1,000 ml @ 50 mls/hr Q20H IV 07/09/20 14:15 08/08/20 14:14 07/10/20 18:14 Dextrose (Dextrose 50%) 25 ml Q30M PRN IV Hypoglycemia 07/09/20 02:45 10/07/20 02:44 Dextrose (Dextrose 50%) 50 ml Q30M PRN IV Hypoglycemia 07/09/20 02:45 10/07/20 02:44 Enoxaparin Sodium (Lovenox) 40 mg Q12HR SUBQ 07/10/20 09:00 10/08/20 08:59 07/11/20 08:57 Insulin Aspart (NovoLOG) BEFORE MEALS AND HS SUBQ 07/09/20 06:30 10/07/20 06:29 Levetiracetam (Keppra) 500 mg Q12HR GT 07/09/20 09:00 08/08/20 08:59 07/11/20 08:56 Multivitamins Therapeutic (Therapeutic Multivitamin) 1 ea DAILY ORAL 07/09/20 09:00 08/08/20 08:59 07/11/20 08:56 Piperacillin Sod/ Tazobactam Sod 3.375 gm/Sodium Chloride 110 ml @ 27.5 mls/hr EVERY 8 HOURS IVPB 07/10/20 10:00 07/15/20 09:59 07/11/20 05:52 Potassium Chloride (K-Dur) 20 meq TWICE A DAY GT 07/10/20 14:00 10/08/20 13:59 07/11/20 08:56 Last 24 Hour Vital Signs Date Time Temp Pulse Resp B/P (MAP) Pulse Ox O2 Delivery O2 Flow Rate FiO2 07/11/20 09:00 Nasal Cannula 3.0 07/11/20 08:00 97.6 100 19 88/98 (95) 100 07/11/20 04:00 98.9 95 20 118/59 (78) 95 07/11/20 00:00 98.7 99 20 110/58 (75) 96 07/10/20 21:00 Nasal Cannula 3.0 07/10/20 20:00 98.4 96 20 116/57 (76) 94 07/10/20 16:00 98.5 74 20 107/57 (74) 97 07/10/20 12:00 98.5 93 20 105/58 (74) 98 07/10/20 09:00 Nasal Cannula 3.0 07/10/20 08:00 98.8 91 20 104/53 (70) 99 07/10/20 04:00 98.2 96 20 113/54 (73) 98 07/10/20 00:00 98.2 95 18 104/56 (72) 97 07/09/20 21:00 Nasal Cannula 3.0 07/09/20 20:00 98.1 87 20 108/68 (81) 99 07/09/20 16:00 97.6 80 19 95/63 (74) 96 07/09/20 12:00 98.0 71 17 95/60 (72) 99 Intake and Output 07/10/20 07/11/20 19:00 07:00 Intake Total 1410.0 ml 1687.5 ml Output Total 2250 ml Balance 1410.0 ml -562.5 ml Intake Free Water 300 ml 150 ml IV Total 510.0 ml 987.5 ml Tube Feeding 600 ml 550 ml Output Urine Total 2250 ml # Voids 1 # Bowel Movements 1 1 Labs Test 07/08/20 20:40 07/08/20 21:00 07/09/20 05:29 07/09/20 06:08 White Blood Count 20.3 K/UL (4.8-10.8) 21.5 K/UL (4.8-10.8) Red Blood Count 4.61 M/UL (4.20-5.40) 3.72 M/UL (4.20-5.40) Hemoglobin 13.6 G/DL (12.0-16.0) 10.7 G/DL (12.0-16.0) Hematocrit 41.8 % (37.0-47.0) 35.8 % (37.0-47.0) Mean Corpuscular Volume 91 FL (80-99) 96 FL (80-99) Mean Corpuscular Hemoglobin 29.5 PG (27.0-31.0) 28.7 PG (27.0-31.0) Mean Corpuscular Hemoglobin Concent 32.5 G/DL (32.0-36.0) 29.8 G/DL (32.0-36.0) Red Cell Distribution Width 16.1 % (11.6-14.8) 14.9 % (11.6-14.8) Platelet Count 263 K/UL (150-450) 204 K/UL (150-450) Mean Platelet Volume 11.2 FL (6.5-10.1) 10.1 FL (6.5-10.1) Neutrophils (%) (Auto) % (45.0-75.0) % (45.0-75.0) Lymphocytes (%) (Auto) % (20.0-45.0) % (20.0-45.0) Monocytes (%) (Auto) % (1.0-10.0) % (1.0-10.0) Eosinophils (%) (Auto) % (0.0-3.0) % (0.0-3.0) Basophils (%) (Auto) % (0.0-2.0) % (0.0-2.0) Differential Total Cells Counted 100 100 Neutrophils % (Manual) 87 % (45-75) 86 % (45-75) Lymphocytes % (Manual) 6 % (20-45) 7 % (20-45) Monocytes % (Manual) 4 % (1-10) 7 % (1-10) Eosinophils % (Manual) 0 % (0-3) 0 % (0-3) Basophils % (Manual) 0 % (0-2) 0 % (0-2) Band Neutrophils 3 % (0-8) 0 % (0-8) Platelet Estimate Adequate Adequate Platelet Morphology Normal Giant Platelets Occasional Anisocytosis 1+ 1+ Prothrombin Time 12.6 SEC (9.30-11.50) Prothromb Time International Ratio 1.2 (0.9-1.1) Activated Partial Thromboplast Time 26 SEC (23-33) D-Dimer 1.57 mg/L FEU (0.00-0.49) Sodium Level 148 MMOL/L (136-145) 151 MMOL/L (136-145) Potassium Level 3.1 MMOL/L (3.5-5.1) 3.6 MMOL/L (3.5-5.1) Chloride Level 112 MMOL/L (98-107) 117 MMOL/L (98-107) Carbon Dioxide Level 29 MMOL/L (21-32) 27 MMOL/L (21-32) Anion Gap 7 mmol/L (5-15) 7 mmol/L (5-15) Blood Urea Nitrogen 46 mg/dL (7-18) 32 mg/dL (7-18) Creatinine 0.7 MG/DL (0.55-1.30) 0.5 MG/DL (0.55-1.30) Estimat Glomerular Filtration Rate > 60 mL/min (>60) > 60 mL/min (>60) Glucose Level 145 MG/DL (74-106) 111 MG/DL (74-106) Lactic Acid Level 1.80 mmol/L (0.4-2.0) Calcium Level 8.4 MG/DL (8.5-10.1) 7.4 MG/DL (8.5-10.1) Ferritin 548 NG/ML (8-388) Total Bilirubin 0.3 MG/DL (0.2-1.0) Aspartate Amino Transf (AST/SGOT) 67 U/L (15-37) Alanine Aminotransferase (ALT/SGPT) 120 U/L (12-78) Alkaline Phosphatase 92 U/L (46-116) Lactate Dehydrogenase 209 U/L (81-234) Total Creatine Kinase 112 U/L (26-308) Creatine Kinase MB < 0.5 NG/ML (0.0-3.6) Creatine Kinase MB Relative Index 0.4 Troponin I 0.017 ng/mL (0.000-0.056) C-Reactive Protein, Quantitative 13.3 mg/dL (0.00-0.90) Pro-B-Type Natriuretic Peptide 804 pg/mL (0-125) Total Protein 7.5 G/DL (6.4-8.2) Albumin 1.9 G/DL (3.4-5.0) Globulin 5.6 g/dL Albumin/Globulin Ratio 0.3 (1.0-2.7) Lipase 124 U/L (73-393) Urine Color Yellow Urine Appearance Slightly cloudy Urine pH 5 (4.5-8.0) Urine Specific [place] 1.020 (1.005-1.035) Urine Protein 3+ (NEGATIVE) Urine Glucose (UA) Negative (NEGATIVE) Urine Ketones 1+ (NEGATIVE) Urine Blood 2+ (NEGATIVE) Urine Nitrite Negative (NEGATIVE) Urine Bilirubin Negative (NEGATIVE) Urine Urobilinogen Normal MG/DL (0.0-1.0) Urine Leukocyte Esterase 2+ (NEGATIVE) Urine RBC 5-10 /HPF (0 - 2) Urine WBC Tntc /HPF (0 - 2) Urine Squamous Epithelial Cells Occasional /LPF Urine Bacteria Few /HPF (NONE) POC Whole Blood Glucose 116 MG/DL (74-106) Test 07/09/20 10:15 07/09/20 12:04 07/09/20 16:21 07/09/20 19:56 Hepatitis A IgM Antibody Negative (Negative) Hepatitis B Surface Antigen Negative (Negative) Hepatitis B Core IgM Antibody Negative (Negative) Hepatitis C Antibody 0.2 s/co ratio (0.0-0.9) HIV (1&2) Antibody Rapid Negative (NEGATIVE) POC Whole Blood Glucose 107 MG/DL (74-106) 79 MG/DL (74-106) 123 MG/DL (74-106) Test 07/10/20 05:40 07/10/20 10:24 07/10/20 21:02 07/11/20 05:20 White Blood Count 20.1 K/UL (4.8-10.8) 17.7 K/UL (4.8-10.8) Red Blood Count 2.97 M/UL (4.20-5.40) 3.55 M/UL (4.20-5.40) Hemoglobin 8.8 G/DL (12.0-16.0) 10.5 G/DL (12.0-16.0) Hematocrit 28.5 % (37.0-47.0) 33.3 % (37.0-47.0) Mean Corpuscular Volume 96 FL (80-99) 94 FL (80-99) Mean Corpuscular Hemoglobin 29.6 PG (27.0-31.0) 29.6 PG (27.0-31.0) Mean Corpuscular Hemoglobin Concent 30.8 G/DL (32.0-36.0) 31.6 G/DL (32.0-36.0) Red Cell Distribution Width 15.0 % (11.6-14.8) 15.0 % (11.6-14.8) Platelet Count 175 K/UL (150-450) 179 K/UL (150-450) Mean Platelet Volume 9.8 FL (6.5-10.1) 9.5 FL (6.5-10.1) Neutrophils (%) (Auto) % (45.0-75.0) 84.5 % (45.0-75.0) Lymphocytes (%) (Auto) % (20.0-45.0) 9.7 % (20.0-45.0) Monocytes (%) (Auto) % (1.0-10.0) 4.4 % (1.0-10.0) Eosinophils (%) (Auto) % (0.0-3.0) 1.1 % (0.0-3.0) Basophils (%) (Auto) % (0.0-2.0) 0.3 % (0.0-2.0) Differential Total Cells Counted 100 Neutrophils % (Manual) 90 % (45-75) Lymphocytes % (Manual) 8 % (20-45) Monocytes % (Manual) 1 % (1-10) Eosinophils % (Manual) 1 % (0-3) Basophils % (Manual) 0 % (0-2) Band Neutrophils 0 % (0-8) Platelet Estimate Adequate Platelet Morphology Normal Hypochromasia 1+ Anisocytosis 1+ Sodium Level 145 MMOL/L (136-145) 141 MMOL/L (136-145) Potassium Level 2.8 MMOL/L (3.5-5.1) 3.6 MMOL/L (3.5-5.1) Chloride Level 111 MMOL/L (98-107) 106 MMOL/L (98-107) Carbon Dioxide Level 27 MMOL/L (21-32) 28 MMOL/L (21-32) Anion Gap 6 mmol/L (5-15) 7 mmol/L (5-15) Blood Urea Nitrogen 18 mg/dL (7-18) 10 mg/dL (7-18) Creatinine 0.4 MG/DL (0.55-1.30) 0.3 MG/DL (0.55-1.30) Estimat Glomerular Filtration Rate > 60 mL/min (>60) > 60 mL/min (>60) Glucose Level 132 MG/DL (74-106) 106 MG/DL (74-106) Uric Acid 1.9 MG/DL (2.6-7.2) 0.8 MG/DL (2.6-7.2) Calcium Level 7.7 MG/DL (8.5-10.1) 8.7 MG/DL (8.5-10.1) Phosphorus Level 1.1 MG/DL (2.5-4.9) 2.6 MG/DL (2.5-4.9) Magnesium Level 1.9 MG/DL (1.8-2.4) 2.0 MG/DL (1.8-2.4) Iron Level 16 ug/dL (50-175) Total Iron Binding Capacity 135 ug/dL (250-450) Percent Iron Saturation 12 % (15-50) Unsaturated Iron Binding 119 ug/dL (112-346) Ferritin 494 NG/ML (8-388) Total Bilirubin 0.3 MG/DL (0.2-1.0) 0.4 MG/DL (0.2-1.0) Aspartate Amino Transf (AST/SGOT) 24 U/L (15-37) 23 U/L (15-37) Alanine Aminotransferase (ALT/SGPT) 55 U/L (12-78) 46 U/L (12-78) Alkaline Phosphatase 72 U/L (46-116) 87 U/L (46-116) C-Reactive Protein, Quantitative 7.0 mg/dL (0.00-0.90) 9.5 mg/dL (0.00-0.90) Pro-B-Type Natriuretic Peptide 1426 pg/mL (0-125) Total Protein 6.0 G/DL (6.4-8.2) 6.8 G/DL (6.4-8.2) Albumin 1.9 G/DL (3.4-5.0) 2.0 G/DL (3.4-5.0) Globulin 4.1 g/dL 4.8 g/dL Albumin/Globulin Ratio 0.5 (1.0-2.7) 0.4 (1.0-2.7) Vitamin B12 Level 471 PG/ML (193-986) Folate 17.0 NG/ML (8.6-58.9) D-Dimer 1.50 mg/L FEU (0.00-0.49) POC Whole Blood Glucose 90 MG/DL (74-106) Height (Feet): 5 Height (Inches): 1.00 Weight (Pounds): 99 Objective Physical Exam Sp02 EP Interpretation: reviewed, normal General Appearance: no apparent distress, non-verbal ++contracted Head: normocephalic, atraumatic ENT: hearing grossly normal, no angioedema Respiratory: chest non-tender, lungs clear, normal breath sounds,++2l Nc Cardiovascular: no edema, tachycardia Gastrointestinal: normal bowel sounds, non tender, soft, ++gt Rectal: deferred Musculoskeletal: normal inspection Neurologic: alert, motor strength/tone normal, no focal defects Skin: other - See RN skin exam. Lymphatic: no adenopathy Gu: valderrama+++ Gisela Lindquist NP Jul 11, 2020 10:47
[2020-07-11 12:00] VITALS: BP 110/56
[2020-07-11 16:00] VITALS: BP 100/60
--- NOTE | 2020-07-11 16:01 | Nephrology Progress Note ---
Assessment/Plan Problem List: (1) Dehydration (2) Electrolyte imbalance (3) UTI (urinary tract infection) (4) Sepsis (5) Malnutrition (6) Pyelonephritis (7) Leukocytosis Assessment Electrolyte imbalance, hypernatremia, hypokalemia Pyelonephritis, leukocytosis Fever, tachycardia Plan July 11: Labs reviewed. Renal parameters stable. Electrolytes within normal limit. Will stop IV fluid. Will start midodrine for low blood pressure. July 10: Serum sodium improved. Low potassium and low phosphorus addressed. IV down to 50 cc an hour. Stable from renal standpoint of view. Continue to monitor electrolytes and chemistries. Previously: Change IV to D5W Potassium supplement Anemia work-up Albumin bolus Monitor electrolytes and renal parameters Per orders Subjective ROS Limited/Unobtainable: Yes Objective Objective Last 24 Hour Vital Signs Date Time Temp Pulse Resp B/P (MAP) Pulse Ox O2 Delivery O2 Flow Rate FiO2 07/11/20 12:00 96.7 98 20 110/56 (74) 98 07/11/20 09:00 Nasal Cannula 3.0 07/11/20 08:00 97.6 100 19 88/98 (95) 100 07/11/20 04:00 98.9 95 20 118/59 (78) 95 07/11/20 00:00 98.7 99 20 110/58 (75) 96 07/10/20 21:00 Nasal Cannula 3.0 07/10/20 20:00 98.4 96 20 116/57 (76) 94 07/10/20 16:00 98.5 74 20 107/57 (74) 97 Intake and Output 07/10/20 07/11/20 19:00 07:00 Intake Total 1410.0 ml 1887.5 ml Output Total 2250 ml Balance 1410.0 ml -362.5 ml Intake Free Water 300 ml 300 ml IV Total 510.0 ml 987.5 ml Tube Feeding 600 ml 600 ml Output Urine Total 2250 ml # Voids 1 # Bowel Movements 1 1 Laboratory Tests 07/10/20 21:02: POC Whole Blood Glucose 90 07/11/20 05:20: White Blood Count 17.7H, Red Blood Count 3.55L, Hemoglobin 10.5L, Hematocrit 33.3L, Mean Corpuscular Volume 94, Mean Corpuscular Hemoglobin 29.6, Mean Corpuscular Hemoglobin Concent 31.6L, Red Cell Distribution Width 15.0H, Platelet Count 179, Mean Platelet Volume 9.5, Neutrophils (%) (Auto) 84.5H, Lymphocytes (%) (Auto) 9.7L, Monocytes (%) (Auto) 4.4, Eosinophils (%) (Auto) 1.1, Basophils (%) (Auto) 0.3, Sodium Level 141, Potassium Level 3.6, Chloride Level 106, Carbon Dioxide Level 28, Anion Gap 7, Blood Urea Nitrogen 10, Creatinine 0.3L, Estimat Glomerular Filtration Rate > 60, Glucose Level 106, Uri c Acid 0.8L, Calcium Level 8.7, Phosphorus Level 2.6, Magnesium Level 2.0, Total Bilirubin 0.4, Aspartate Amino Transf (AST/SGOT) 23, Alanine Aminotransferase (ALT/SGPT) 46, Alkaline Phosphatase 87, C-Reactive Protein, Quantitative 9.5H, Total Protein 6.8, Albumin 2.0L, Globulin 4.8, Albumin/Globulin Ratio 0.4L Height (Feet): 5 Height (Inches): 1.00 Weight (Pounds): 99 General Appearance: no apparent distress Cardiovascular: tachycardia Respiratory/Chest: decreased breath sounds Abdomen: distended Gabriele Honeycutt MD Jul 11, 2020 16:01
--- NOTE | 2020-07-11 16:06 | Surgery Progress Note ---
Surgery Progress Note Subjective Additional Comments no acute events Objective Last 24 Hour Vital Signs Date Time Temp Pulse Resp B/P (MAP) Pulse Ox O2 Delivery O2 Flow Rate FiO2 07/11/20 12:00 96.7 98 20 110/56 (74) 98 07/11/20 09:00 Nasal Cannula 3.0 07/11/20 08:00 97.6 100 19 88/98 (95) 100 07/11/20 04:00 98.9 95 20 118/59 (78) 95 07/11/20 00:00 98.7 99 20 110/58 (75) 96 07/10/20 21:00 Nasal Cannula 3.0 07/10/20 20:00 98.4 96 20 116/57 (76) 94 I&O Intake and Output 07/10/20 07/11/20 19:00 07:00 Intake Total 1410.0 ml 1887.5 ml Output Total 2250 ml Balance 1410.0 ml -362.5 ml Intake Free Water 300 ml 300 ml IV Total 510.0 ml 987.5 ml Tube Feeding 600 ml 600 ml Output Urine Total 2250 ml # Voids 1 # Bowel Movements 1 1 Dressing: saturated Cardiovascular: RSR Respiratory: decreased breath sounds Abdomen: non-tender, present bowel sounds Extremities: no tenderness, no cyanosis Laboratory Tests Test 07/10/20 21:02 07/11/20 05:20 POC Whole Blood Glucose 90 MG/DL (74-106) White Blood Count 17.7 K/UL (4.8-10.8) H Red Blood Count 3.55 M/UL (4.20-5.40) L Hemoglobin 10.5 G/DL (12.0-16.0) L Hematocrit 33.3 % (37.0-47.0) L Mean Corpuscular Volume 94 FL (80-99) Mean Corpuscular Hemoglobin 29.6 PG (27.0-31.0) Mean Corpuscular Hemoglobin Concent 31.6 G/DL (32.0-36.0) L Red Cell Distribution Width 15.0 % (11.6-14.8) H Platelet Count 179 K/UL (150-450) Mean Platelet Volume 9.5 FL (6.5-10.1) Neutrophils (%) (Auto) 84.5 % (45.0-75.0) H Lymphocytes (%) (Auto) 9.7 % (20.0-45.0) L Monocytes (%) (Auto) 4.4 % (1.0-10.0) Eosinophils (%) (Auto) 1.1 % (0.0-3.0) Basophils (%) (Auto) 0.3 % (0.0-2.0) Sodium Level 141 MMOL/L (136-145) Potassium Level 3.6 MMOL/L (3.5-5.1) Chloride Level 106 MMOL/L (98-107) Carbon Dioxide Level 28 MMOL/L (21-32) Anion Gap 7 mmol/L (5-15) Blood Urea Nitrogen 10 mg/dL (7-18) Creatinine 0.3 MG/DL (0.55-1.30) L Estimat Glomerular Filtration Rate > 60 mL/min (>60) Glucose Level 106 MG/DL (74-106) Uric Acid 0.8 MG/DL (2.6-7.2) L Calcium Level 8.7 MG/DL (8.5-10.1) Phosphorus Level 2.6 MG/DL (2.5-4.9) Magnesium Level 2.0 MG/DL (1.8-2.4) Total Bilirubin 0.4 MG/DL (0.2-1.0) Aspartate Amino Transf (AST/SGOT) 23 U/L (15-37) Alanine Aminotransferase (ALT/SGPT) 46 U/L (12-78) Alkaline Phosphatase 87 U/L (46-116) C-Reactive Protein, Quantitative 9.5 mg/dL (0.00-0.90) H Total Protein 6.8 G/DL (6.4-8.2) Albumin 2.0 G/DL (3.4-5.0) L Globulin 4.8 g/dL Albumin/Globulin Ratio 0.4 (1.0-2.7) L Plan Problems: (1) Fever (2) Leukocytosis Assessment & Plan: on abx id input appreciated wounds not infected nutrition (3) Tachycardia (4) Decubitus skin ulcer (5) Pyelonephritis (6) Malnutrition (7) Sepsis Assessment & Plan: ill appearing poor skin turgor leukocytosis anemia h/h low trending prbc prn Needs based on underweight, DM 35.5kg 30-40 kcals/kg [id number] total kcals 1.25-2 g protein/kg 44-71 g total protein 25-35ml/kcal mL/kg [phone] total fluid mLs NUTRITION DIAGNOSIS: Swallowing difficulty R/T dysphagia as evidenced by pt is Gtube dependent. ENTERAL NUTRITION RECOMMENDATIONS: Glucerna 1.2 @50ml x24 hrs to provide 1200ml, 1440 kcal, 72g pro, 966ml free H2O - As able rec carb control formula for h/o DM. - Start @30ml/hr for 6 hrs, advance as tolerated 10ml/hr q4-6 hrs to goal. - Flush per MD/ HOB over 30 degrees ADDITIONAL RECOMMENDATIONS: - Per SNF: 5'3" and 78lbs/35.45kg. - Check lytes daily, replete as needed - A1c for eval of glycemic control - Wound care: advanced per RN, f/up with WC RN. Add LINA BID w/ GT, Vit C 250mg BID (2) Decubitus skin ulcer Assessment & Plan: This is an emaciated pt whom presented on admission with Multiple Pressure Injuries. Unstageable Pressure Injury Sacrum (L)11cm x (W)10.5cm. Base of wound is 90% necrotic, surrounding 10% moist, erythematous borders. Edges adherent to base of wound. No odor or exudate noted. Unstageable Pressure Injury L trochanter(L)3.5cm x (W)5.5cm. Base of wound is 95% necrotic, 5% surrounding borders arleen. Edges adherent to base of wound. No odor or exudate noted.Periwound is pale. Non-Blanchable erythema without induration L Ischium. Non-Blanchable erythema without induration bony prominences of L Hip/L Trochanter/L Ischial tuberosity. DTPI L Heel(L)2.5cmx(W)2cm.Base of Pressure Injury is fluctuant, Maroon in colour with surrounding non-blanchable erythema. Non-Blanchable erythema without induration L Hallux (L)1cm x (W)2cm. DTPI R Heel (L)6cm x (W)8cm.Base of Pressure Injury is fluctuant and maroon in colour. Edges are adherent to base of Pressure Injury. Unstageable Pressure Injury dorsal R 1st metatarsal(L)0.8cm x (W)0.6cm.Base of wound is 100% necrotic with marginal erythema along borders . Edges adherent to base of wound.. Non-Blanchable erythema without induration distal/lateral R foot (L)1.5cm x (W)1.5cm. Non-Blanchable erythema without induration R Hallux. Tx.Plan: Cleanse Sacral wound with Saline. Apply Therahoney. Apply Moisture Barrier Paste periwound. Cover with Optifoam drsg. Change every 3 days and prn. Cleanse L Trochanteric wound with Saline.Apply Therhaoney.Apply Moisture Barrier paste Periwound. Cover with Optifoam drsg. Change every 3 days and prn. Apply Moisture Barrier Paste to R and L ischium. Cover each site with Optifoam drsg. Change every 3 days and prn. Cover R hip /R Trochanter with Optifoam drsgs. Change every 7 days and prn. Apply Cavilon Skin Barrier to R heel , R 1st metatarsal,R hallux, Distal /Lateral R foot. Cover each Pressure Injury with Optifoam drsg. Change every 7 days and prn. Apply Cavilon Skin Barrier o L Heel , L Hallux, Distal lateral L Foot . Cover each Pressure Injury with Optifoam drsg. Change every 7 days and prn. Reposition at least every 2hours or as tolerated. Off-load heels with Pillow. APM/SOLOMON Mattress Overlay. (3) UTI (urinary tract infection) (4) Pneumonia (5) Sepsis Assessment & Plan: leukocytosis lactic acidosis malnutrition underweight bmi 13 micro noted on abx as per ID cont abx wounds unlikely etiology will follow with local care and evaluation to ensure improving thank you There is a slight degree of image degradation due to motion artifact. The right upper lobe is largely clear following may be some interstitial septal thickening in the apex. The right middle lobe is clear. The right lower lobe demonstrates some atelectasis at the right lung base. There is also a focal 6 mm nodular opacity, image 50 series 5. There is a vague mosaic attenuation pattern. Left upper lobe demonstrates scattered areas of mosaic attenuation superiorly image 10 of series 5 demonstrates a 3 mm left upper lobe nodule.. Irregular consolidative opacities are seen in the inferior left upper lobe. More extensive consolidation in a patchy and irregular distribution are seen in the left lower lobe. There is a small left pleural effusion. The heart is upper limits of normal in size. The ascending thoracic aorta is mildly ectatic. No mediastinal or hilar mass or adenopathy. Unremarkable. No axillary or chest wall mass or adenopathy demonstrated. The bones are unremarkable except for minimal degenerative spondylosis changes and slight anterior bowing of the sternum. The included lung bases demonstrate a gastrostomy which appears well-positioned. There is trace ascites Impression: Opacities in the left lower lobe and also to a lesser extent in the left upper lobe and minimally in the right lower lobe. Appearance is consistent with consolidation rather than mass. Most likely represents pneumonia, appearance nonspecific as regards etiology. Patchy pulmonary edema also possible, among other possibilities Small left pleural effusion Bilateral small nodules, as described. No further follow-up necessary if there are no risk factors for lung carcinoma. There are significant risk factors, then short interval follow-up CT in 6-12 months is recommended Trace ascites (8) UTI (urinary tract infection) (9) Pneumonia (10) PEG (percutaneous endoscopic gastrostomy) adjustment/replacement/removal Chao Ovalle Jul 11, 2020 16:06
[2020-07-11] MEDS: Midodrine 10mg tab ORAL SCH ×2 (17:04→21:33)
[2020-07-11 20:00] VITALS: BP 103/65
[2020-07-12] VITALS: BP 110/73
[2020-07-12 04:00] VITALS: BP 121/70
[2020-07-12] MEDS: Midodrine 10mg tab ORAL SCH ×3 (05:57→21:19)
[2020-07-12] MEDS: NovoLOG Insulin Flexpen SUBQ SCH ×5 (05:57→21:00)
[2020-07-12] MEDS: Piperacillin/Tazobactam 3.375 GM in NS 110 ML IVPB SCH ×3 (05:57→21:19)
[2020-07-12 08:00] VITALS: BP 91/50
[2020-07-12] MEDS: Enoxaparin 40mg Inj SUBQ SCH ×2 (08:03→21:21)
[2020-07-12] MEDS: Ascorbic Acid 500mg tab ORAL SCH (08:04)
[2020-07-12] MEDS: Multivitamin w/Minerals tab ORAL SCH (08:04)
[2020-07-12] MEDS: levETIRAcetam 500mg/5ml Liquid GT SCH ×2 (10:11→21:19)
--- NOTE | 2020-07-12 10:23 | Infectious Diseases Prog Note ---
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 but with fever at [facility] Lymphopenia Hypoxic w/ NC O2 requirement, r/o PNA 07/08 BCx NTD UA+, UCx <10k GNR COVID rapid test neg, PCR p CXR: No acute process +RLE DVT on US 07/09 Elevated LFTs 67 / 120 Abd TTP 06/29 Abd US wnl Acute hep panel neg Cr 0.5 HIV screen neg PMH: DM CHF Dementia SNF resident Plan: Cont Zosyn #3 given persistent leukocytosis Tx of RLE DVT per primary, on lovenox BID Consider CTA chest to r/o PE, could be cause of persistent leukocytosis, hypoxia F/u COVID PCR Trend WBC 07/10 SP CTX #2 Monitor CBC/CMP Monitor temp curve, hemodynamics Monitor resp status D/w RN Thank you for this consult. [facility] will continue to follow. Subjective Allergies: Coded Allergies: ERYTHROMYCIN BASE (Verified Allergy, Unknown, 11/12/16) AF WBC down to 17 yesterday NAD on 3L NC Objective Last 24 Hour Vital Signs Date Time Temp Pulse Resp B/P (MAP) Pulse Ox O2 Delivery O2 Flow Rate FiO2 07/12/20 08:25 Nasal Cannula 3.0 07/12/20 08:00 98.0 68 18 91/50 (64) 95 07/12/20 04:00 97.6 92 18 121/70 (87) 98 07/12/20 00:00 97.6 95 20 110/73 (85) 96 07/11/20 21:00 Nasal Cannula 3.0 07/11/20 20:00 98.9 96 20 103/65 (78) 95 07/11/20 16:00 98.0 99 18 100/60 (73) 100 07/11/20 12:00 96.7 98 20 110/56 (74) 98 Height (Feet): 5 Height (Inches): 1.00 Weight (Pounds): 99 Gen: NAD HEENT: NCAT Pulm: BL chest rise Abd: Non-distended Ext: No c/c/e Skin: No visible rashes Neuro: Awake Current Medications Medications (Trade) Dose Ordered Sig/Alvarado Route PRN Reason Start Time Stop Time Status Last Admin Dose Admin Acetaminophen (Tylenol) 650 mg Q4H PRN ORAL MILD PAIN/TEMP > 101F 07/09/20 02:30 08/08/20 02:29 Ascorbic Acid (Vitamin C) 500 mg DAILY ORAL 07/09/20 09:00 08/08/20 08:59 07/12/20 08:04 Atorvastatin Calcium (Lipitor) 10 mg BEDTIME GT 07/09/20 21:00 10/07/20 20:59 07/11/20 21:32 Bisacodyl (Dulcolax) 10 mg DAILY PRN RECTAL Constipation 07/09/20 02:30 10/07/20 02:29 Clonidine HCl (Catapres Tab) 0.1 mg Q8H PRN GT HYPERTENSION 07/09/20 02:30 10/07/20 02:29 Dextrose (Dextrose 50%) 25 ml Q30M PRN IV Hypoglycemia 07/09/20 02:45 10/07/20 02:44 Dextrose (Dextrose 50%) 50 ml Q30M PRN IV Hypoglycemia 07/09/20 02:45 10/07/20 02:44 Enoxaparin Sodium (Lovenox) 40 mg Q12HR SUBQ 07/10/20 09:00 10/08/20 08:59 07/12/20 08:03 Insulin Aspart (NovoLOG) BEFORE MEALS AND HS SUBQ 07/09/20 06:30 10/07/20 06:29 07/11/20 17:04 Levetiracetam (Keppra) 500 mg Q12HR GT 07/09/20 09:00 08/08/20 08:59 07/12/20 10:11 Midodrine (Pro-Amatine) 10 mg Q8HR ORAL 07/11/20 16:00 10/09/20 15:59 07/12/20 05:57 Multivitamins Therapeutic (Therapeutic Multivitamin) 1 ea DAILY ORAL 07/09/20 09:00 08/08/20 08:59 07/12/20 08:04 Piperacillin Sod/ Tazobactam Sod 3.375 gm/Sodium Chloride 110 ml @ 27.5 mls/hr EVERY 8 HOURS IVPB 07/10/20 10:00 07/15/20 09:59 07/12/20 05:57 Potassium Chloride (K-Dur) 20 meq TWICE A DAY GT 07/10/20 14:00 10/08/20 13:59 07/12/20 08:04 Beth Marsh M.D. Jul 12, 2020 10:23
[2020-07-12 12:00] VITALS: BP 101/53
--- NOTE | 2020-07-12 12:14 | Hematology/Onc Progress Note ---
Assessment/Plan Assessment/Plan Internal Med Progress Note Covering for Dr. Abarca Chest X-Ray Diagnostic Results Chest X-Ray Diagnostic Results : Chest X-Ray Ordered: Yes # of Views/Limited/Complete: 1 View Indication: Other EP Interpretation: Yes Interpretation: no consolidation, no effusion, no pneumothorax, no acute car diopulmonary disease Impression: No acute disease Electronically Signed by: Kristina Rosario DO Assessment and Recs # Sepsis due to Pyelonephritis --> septic protocol started --> is on ivfs --> abx as per ID ceftriaxone --> imaging noted --> urine culture seen and spec # Positive for right lower extremity common femoral deep venous thrombosis --> anticoagulation has been started --> does have Elevated ddimer # Anemia due to chronic disease --> panel as needed -> hgb 10.7 # Leukocytosis due to infection --> per ID abx # Fever with flu like symptoms --> r/o covid19 --> due to above # HL --> lipitor and asa # Tachycardia --> ivfs should improve # Dvt ppx lovenox sq Subjective Allergies: Coded Allergies: ERYTHROMYCIN BASE (Verified Allergy, Unknown, 11/12/16) Subjective Subjective: 1/2: non verbal, no acute bleeding reported. 07/12: VSS afebrile, no acute distress noted Objective Objective Current Medications Medications (Trade) Dose Ordered Sig/Alvarado Route PRN Reason Start Time Stop Time Status Last Admin Dose Admin Acetaminophen (Tylenol) 650 mg Q4H PRN ORAL MILD PAIN/TEMP > 101F 07/09/20 02:30 08/08/20 02:29 Ascorbic Acid (Vitamin C) 500 mg DAILY ORAL 07/09/20 09:00 08/08/20 08:59 07/12/20 08:04 Atorvastatin Calcium (Lipitor) 10 mg BEDTIME GT 07/09/20 21:00 10/07/20 20:59 07/11/20 21:32 Bisacodyl (Dulcolax) 10 mg DAILY PRN RECTAL Constipation 07/09/20 02:30 10/07/20 02:29 Clonidine HCl (Catapres Tab) 0.1 mg Q8H PRN GT HYPERTENSION 07/09/20 02:30 10/07/20 02:29 Dextrose (Dextrose 50%) 25 ml Q30M PRN IV Hypoglycemia 07/09/20 02:45 10/07/20 02:44 Dextrose (Dextrose 50%) 50 ml Q30M PRN IV Hypoglycemia 07/09/20 02:45 10/07/20 02:44 Enoxaparin Sodium (Lovenox) 40 mg Q12HR SUBQ 07/10/20 09:00 10/08/20 08:59 07/12/20 08:03 Insulin Aspart (NovoLOG) BEFORE MEALS AND HS SUBQ 07/09/20 06:30 10/07/20 06:29 07/11/20 17:04 Levetiracetam (Keppra) 500 mg Q12HR GT 07/09/20 09:00 08/08/20 08:59 07/12/20 10:11 Midodrine (Pro-Amatine) 10 mg Q8HR ORAL 07/11/20 16:00 10/09/20 15:59 07/12/20 05:57 Multivitamins Therapeutic (Therapeutic Multivitamin) 1 ea DAILY ORAL 07/09/20 09:00 08/08/20 08:59 07/12/20 08:04 Piperacillin Sod/ Tazobactam Sod 3.375 gm/Sodium Chloride 110 ml @ 27.5 mls/hr EVERY 8 HOURS IVPB 07/10/20 10:00 07/15/20 09:59 07/12/20 05:57 Potassium Chloride (K-Dur) 20 meq TWICE A DAY GT 07/10/20 14:00 10/08/20 13:59 07/12/20 08:04 Last 24 Hour Vital Signs Date Time Temp Pulse Resp B/P (MAP) Pulse Ox O2 Delivery O2 Flow Rate FiO2 07/12/20 08:25 Nasal Cannula 3.0 07/12/20 08:00 98.0 68 18 91/50 (64) 95 07/12/20 04:00 97.6 92 18 121/70 (87) 98 07/12/20 00:00 97.6 95 20 110/73 (85) 96 07/11/20 21:00 Nasal Cannula 3.0 07/11/20 20:00 98.9 96 20 103/65 (78) 95 07/11/20 16:00 98.0 99 18 100/60 (73) 100 07/11/20 12:00 96.7 98 20 110/56 (74) 98 07/11/20 09:00 Nasal Cannula 3.0 07/11/20 08:00 97.6 100 19 88/98 (95) 100 07/11/20 04:00 98.9 95 20 118/59 (78) 95 07/11/20 00:00 98.7 99 20 110/58 (75) 96 07/10/20 21:00 Nasal Cannula 3.0 07/10/20 20:00 98.4 96 20 116/57 (76) 94 07/10/20 16:00 98.5 74 20 107/57 (74) 97 Intake and Output 07/11/20 07/12/20 19:00 07:00 Intake Total 1292.5 ml 150 ml Output Total 800 ml Balance 1292.5 ml -650 ml Intake Free Water 150 ml 50 ml IV Total 592.5 ml Tube Feeding 550 ml 100 ml Output Urine Total 800 ml # Voids 4 # Bowel Movements 1 Labs Test 07/09/20 16:21 07/09/20 19:56 07/10/20 05:40 07/10/20 10:24 POC Whole Blood Glucose 79 MG/DL (74-106) 123 MG/DL (74-106) White Blood Count 20.1 K/UL (4.8-10.8) Red Blood Count 2.97 M/UL (4.20-5.40) Hemoglobin 8.8 G/DL (12.0-16.0) Hematocrit 28.5 % (37.0-47.0) Mean Corpuscular Volume 96 FL (80-99) Mean Corpuscular Hemoglobin 29.6 PG (27.0-31.0) Mean Corpuscular Hemoglobin Concent 30.8 G/DL (32.0-36.0) Red Cell Distribution Width 15.0 % (11.6-14.8) Platelet Count 175 K/UL (150-450) Mean Platelet Volume 9.8 FL (6.5-10.1) Neutrophils (%) (Auto) % (45.0-75.0) Lymphocytes (%) (Auto) % (20.0-45.0) Monocytes (%) (Auto) % (1.0-10.0) Eosinophils (%) (Auto) % (0.0-3.0) Basophils (%) (Auto) % (0.0-2.0) Differential Total Cells Counted 100 Neutrophils % (Manual) 90 % (45-75) Lymphocytes % (Manual) 8 % (20-45) Monocytes % (Manual) 1 % (1-10) Eosinophils % (Manual) 1 % (0-3) Basophils % (Manual) 0 % (0-2) Band Neutrophils 0 % (0-8) Platelet Estimate Adequate Platelet Morphology Normal Hypochromasia 1+ Anisocytosis 1+ Sodium Level 145 MMOL/L (136-145) Potassium Level 2.8 MMOL/L (3.5-5.1) Chloride Level 111 MMOL/L (98-107) Carbon Dioxide Level 27 MMOL/L (21-32) Anion Gap 6 mmol/L (5-15) Blood Urea Nitrogen 18 mg/dL (7-18) Creatinine 0.4 MG/DL (0.55-1.30) Estimat Glomerular Filtration Rate > 60 mL/min (>60) Glucose Level 132 MG/DL (74-106) Uric Acid 1.9 MG/DL (2.6-7.2) Calcium Level 7.7 MG/DL (8.5-10.1) Phosphorus Level 1.1 MG/DL (2.5-4.9) Magnesium Level 1.9 MG/DL (1.8-2.4) Iron Level 16 ug/dL (50-175) Total Iron Binding Capacity 135 ug/dL (250-450) Percent Iron Saturation 12 % (15-50) Unsaturated Iron Binding 119 ug/dL (112-346) Ferritin 494 NG/ML (8-388) Total Bilirubin 0.3 MG/DL (0.2-1.0) Aspartate Amino Transf (AST/SGOT) 24 U/L (15-37) Alanine Aminotransferase (ALT/SGPT) 55 U/L (12-78) Alkaline Phosphatase 72 U/L (46-116) C-Reactive Protein, Quantitative 7.0 mg/dL (0.00-0.90) Pro-B-Type Natriuretic Peptide 1426 pg/mL (0-125) Total Protein 6.0 G/DL (6.4-8.2) Albumin 1.9 G/DL (3.4-5.0) Globulin 4.1 g/dL Albumin/Globulin Ratio 0.5 (1.0-2.7) Vitamin B12 Level 471 PG/ML (193-986) Folate 17.0 NG/ML (8.6-58.9) D-Dimer 1.50 mg/L FEU (0.00-0.49) Test 07/10/20 21:02 07/11/20 05:20 07/12/20 11:17 POC Whole Blood Glucose 90 MG/DL (74-106) White Blood Count 17.7 K/UL (4.8-10.8) Red Blood Count 3.55 M/UL (4.20-5.40) Hemoglobin 10.5 G/DL (12.0-16.0) Hematocrit 33.3 % (37.0-47.0) Mean Corpuscular Volume 94 FL (80-99) Mean Corpuscular Hemoglobin 29.6 PG (27.0-31.0) Mean Corpuscular Hemoglobin Concent 31.6 G/DL (32.0-36.0) Red Cell Distribution Width 15.0 % (11.6-14.8) Platelet Count 179 K/UL (150-450) Mean Platelet Volume 9.5 FL (6.5-10.1) Neutrophils (%) (Auto) 84.5 % (45.0-75.0) Lymphocytes (%) (Auto) 9.7 % (20.0-45.0) Monocytes (%) (Auto) 4.4 % (1.0-10.0) Eosinophils (%) (Auto) 1.1 % (0.0-3.0) Basophils (%) (Auto) 0.3 % (0.0-2.0) Sodium Level 141 MMOL/L (136-145) Potassium Level 3.6 MMOL/L (3.5-5.1) Chloride Level 106 MMOL/L (98-107) Carbon Dioxide Level 28 MMOL/L (21-32) Anion Gap 7 mmol/L (5-15) Blood Urea Nitrogen 10 mg/dL (7-18) Creatinine 0.3 MG/DL (0.55-1.30) Estimat Glomerular Filtration Rate > 60 mL/min (>60) Glucose Level 106 MG/DL (74-106) Uric Acid 0.8 MG/DL (2.6-7.2) Calcium Level 8.7 MG/DL (8.5-10.1) Phosphorus Level 2.6 MG/DL (2.5-4.9) Magnesium Level 2.0 MG/DL (1.8-2.4) Total Bilirubin 0.4 MG/DL (0.2-1.0) Aspartate Amino Transf (AST/SGOT) 23 U/L (15-37) Alanine Aminotransferase (ALT/SGPT) 46 U/L (12-78) Alkaline Phosphatase 87 U/L (46-116) C-Reactive Protein, Quantitative 9.5 mg/dL (0.00-0.90) Total Protein 6.8 G/DL (6.4-8.2) Albumin 2.0 G/DL (3.4-5.0) Globulin 4.8 g/dL Albumin/Globulin Ratio 0.4 (1.0-2.7) Height (Feet): 5 Height (Inches): 1.00 Weight (Pounds): 99 Objective Physical Exam Sp02 EP Interpretation: reviewed, normal General Appearance: no apparent distress, non-verbal ++contracted Head: normocephalic, atraumatic ENT: hearing grossly normal, no angioedema Respiratory: chest non-tender, lungs clear, normal breath sounds,++2l Nc Cardiovascular: no edema, tachycardia Gastrointestinal: normal bowel sounds, non tender, soft, ++gt Rectal: deferred Musculoskeletal: normal inspection Neurologic: alert, motor strength/tone normal, no focal defects Skin: other - See RN skin exam. Lymphatic: no adenopathy Gu: valderrama+++ Gisela Lindquist [employer] Jul 12, 2020 12:14
--- NOTE | 2020-07-12 12:28 | Surgery Progress Note ---
Surgery Progress Note Subjective Additional Comments ill appearing no n/v labs noted exam stable Objective Last 24 Hour Vital Signs Date Time Temp Pulse Resp B/P (MAP) Pulse Ox O2 Delivery O2 Flow Rate FiO2 07/12/20 08:25 Nasal Cannula 3.0 07/12/20 08:00 98.0 68 18 91/50 (64) 95 07/12/20 04:00 97.6 92 18 121/70 (87) 98 07/12/20 00:00 97.6 95 20 110/73 (85) 96 07/11/20 21:00 Nasal Cannula 3.0 07/11/20 20:00 98.9 96 20 103/65 (78) 95 07/11/20 16:00 98.0 99 18 100/60 (73) 100 I&O Intake and Output 07/11/20 07/12/20 19:00 07:00 Intake Total 1292.5 ml 150 ml Output Total 800 ml Balance 1292.5 ml -650 ml Intake Free Water 150 ml 50 ml IV Total 592.5 ml Tube Feeding 550 ml 100 ml Output Urine Total 800 ml # Voids 4 # Bowel Movements 1 Dressing: saturated Cardiovascular: RSR Respiratory: decreased breath sounds Abdomen: non-tender, present bowel sounds Extremities: no tenderness, no cyanosis Laboratory Tests Test 07/12/20 11:17 POC Whole Blood Glucose Pending Plan Problems: (1) Fever (2) Leukocytosis Assessment & Plan: on abx id input appreciated wounds not infected nutrition (3) Tachycardia (4) Decubitus skin ulcer (5) Pyelonephritis (6) Malnutrition (7) Sepsis Assessment & Plan: ill appearing poor skin turgor leukocytosis anemia h/h low trending prbc prn Needs based on underweight, DM 35.5kg 30-40 kcals/kg [id number] total kcals 1.25-2 g protein/kg 44-71 g total protein 25-35ml/kcal mL/kg [phone] total fluid mLs NUTRITION DIAGNOSIS: Swallowing difficulty R/T dysphagia as evidenced by pt is Gtube dependent. ENTERAL NUTRITION RECOMMENDATIONS: Glucerna 1.2 @50ml x24 hrs to provide 1200ml, 1440 kcal, 72g pro, 966ml free H2O - As able rec carb control formula for h/o DM. - Start @30ml/hr for 6 hrs, advance as tolerated 10ml/hr q4-6 hrs to goal. - Flush per MD/ HOB over 30 degrees ADDITIONAL RECOMMENDATIONS: - Per SNF: 5'3" and 78lbs/35.45kg. - Check lytes daily, replete as needed - A1c for eval of glycemic control - Wound care: advanced per RN, f/up with WC RN. Add LINA BID w/ GT, Vit C 250mg BID (2) Decubitus skin ulcer Assessment & Plan: This is an emaciated pt whom presented on admission with Multiple Pressure Injuries. Unstageable Pressure Injury Sacrum (L)11cm x (W)10.5cm. Base of wound is 90% necrotic, surrounding 10% moist, erythematous borders. Edges adherent to base of wound. No odor or exudate noted. Unstageable Pressure Injury L trochanter(L)3.5cm x (W)5.5cm. Base of wound is 95% necrotic, 5% surrounding borders arleen. Edges adherent to base of wound. No odor or exudate noted.Periwound is pale. Non-Blanchable erythema without induration L Ischium. Non-Blanchable erythema without induration bony prominences of L Hip/L Trochanter/L Ischial tuberosity. DTPI L Heel(L)2.5cmx(W)2cm.Base of Pressure Injury is fluctuant, Maroon in colour with surrounding non-blanchable erythema. Non-Blanchable erythema without induration L Hallux (L)1cm x (W)2cm. DTPI R Heel (L)6cm x (W)8cm.Base of Pressure Injury is fluctuant and maroon in colour. Edges are adherent to base of Pressure Injury. Unstageable Pressure Injury dorsal R 1st metatarsal(L)0.8cm x (W)0.6cm.Base of wound is 100% necrotic with marginal erythema along borders . Edges adherent to base of wound.. Non-Blanchable erythema without induration distal/lateral R foot (L)1.5cm x (W)1.5cm. Non-Blanchable erythema without induration R Hallux. Tx.Plan: Cleanse Sacral wound with Saline. Apply Therahoney. Apply Moisture Barrier Paste periwound. Cover with Optifoam drsg. Change every 3 days and prn. Cleanse L Trochanteric wound with Saline.Apply Therhaoney.Apply Moisture Barrier paste Periwound. Cover with Optifoam drsg. Change every 3 days and prn. Apply Moisture Barrier Paste to R and L ischium. Cover each site with Optifoam drsg. Change every 3 days and prn. Cover R hip /R Trochanter with Optifoam drsgs. Change every 7 days and prn. Apply Cavilon Skin Barrier to R heel , R 1st metatarsal,R hallux, Distal /Lateral R foot. Cover each Pressure Injury with Optifoam drsg. Change every 7 days and prn. Apply Cavilon Skin Barrier o L Heel , L Hallux, Distal lateral L Foot . Cover each Pressure Injury with Optifoam drsg. Change every 7 days and prn. Reposition at least every 2hours or as tolerated. Off-load heels with Pillow. APM/SOLOMON Mattress Overlay. (3) UTI (urinary tract infection) (4) Pneumonia (5) Sepsis Assessment & Plan: leukocytosis lactic acidosis malnutrition underweight bmi 13 micro noted on abx as per ID cont abx wounds unlikely etiology will follow with local care and evaluation to ensure improving thank you There is a slight degree of image degradation due to motion artifact. The right upper lobe is largely clear following may be some interstitial septal thickening in the apex. The right middle lobe is clear. The right lower lobe demonstrates some atelectasis at the right lung base. There is also a focal 6 mm nodular opacity, image 50 series 5. There is a vague mosaic attenuation pattern. Left upper lobe demonstrates scattered areas of mosaic attenuation superiorly image 10 of series 5 demonstrates a 3 mm left upper lobe nodule.. Irregular consolidative opacities are seen in the inferior left upper lobe. More extensive consolidation in a patchy and irregular distribution are seen in the left lower lobe. There is a small left pleural effusion. The heart is upper limits of normal in size. The ascending thoracic aorta is mildly ectatic. No mediastinal or hilar mass or adenopathy. Unremarkable. No axillary or chest wall mass or adenopathy demonstrated. The bones are unremarkable except for minimal degenerative spondylosis changes and slight anterior bowing of the sternum. The included lung bases demonstrate a gastrostomy which appears well-positioned. There is trace ascites Impression: Opacities in the left lower lobe and also to a lesser extent in the left upper lobe and minimally in the right lower lobe. Appearance is consistent with consolidation rather than mass. Most likely represents pneumonia, appearance nonspecific as regards etiology. Patchy pulmonary edema also possible, among other possibilities Small left pleural effusion Bilateral small nodules, as described. No further follow-up necessary if there are no risk factors for lung carcinoma. There are significant risk factors, then short interval follow-up CT in 6-12 months is recommended Trace ascites (8) UTI (urinary tract infection) (9) Pneumonia (10) PEG (percutaneous endoscopic gastrostomy) adjustment/replacement/removal Chao Ovalle Jul 12, 2020 12:28
--- NOTE | 2020-07-12 12:50 | Nephrology Progress Note ---
Assessment/Plan Problem List: (1) Dehydration (2) Electrolyte imbalance (3) UTI (urinary tract infection) (4) Sepsis (5) Malnutrition (6) Pyelonephritis (7) Leukocytosis Assessment Electrolyte imbalance, hypernatremia, hypokalemia Pyelonephritis, leukocytosis Fever, tachycardia Plan July 12: No chemistry panel drawn today. Medication list reviewed. Continue to monitor electrolytes and renal parameters. Continue per consultants. July 11: Labs reviewed. Renal parameters stable. Electrolytes within normal limit. Will stop IV fluid. Will start midodrine for low blood pressure. July 10: Serum sodium improved. Low potassium and low phosphorus addressed. IV down to 50 cc an hour. Stable from renal standpoint of view. Continue to monitor electrolytes and chemistries. Previously: Change IV to D5W Potassium supplement Anemia work-up Albumin bolus Monitor electrolytes and renal parameters Per orders Subjective ROS Limited/Unobtainable: Yes Objective Objective Last 24 Hour Vital Signs Date Time Temp Pulse Resp B/P (MAP) Pulse Ox O2 Delivery O2 Flow Rate FiO2 07/12/20 12:00 97.4 67 18 101/53 (69) 96 07/12/20 08:25 Nasal Cannula 3.0 07/12/20 08:00 98.0 68 18 91/50 (64) 95 07/12/20 04:00 97.6 92 18 121/70 (87) 98 07/12/20 00:00 97.6 95 20 110/73 (85) 96 07/11/20 21:00 Nasal Cannula 3.0 07/11/20 20:00 98.9 96 20 103/65 (78) 95 07/11/20 16:00 98.0 99 18 100/60 (73) 100 Intake and Output 07/11/20 07/12/20 19:00 07:00 Intake Total 1292.5 ml 150 ml Output Total 800 ml Balance 1292.5 ml -650 ml Intake Free Water 150 ml 50 ml IV Total 592.5 ml Tube Feeding 550 ml 100 ml Output Urine Total 800 ml # Voids 4 # Bowel Movements 1 Laboratory Tests 07/12/20 11:17: POC Whole Blood Glucose [Pending] Height (Feet): 5 Height (Inches): 1.00 Weight (Pounds): 99 General Appearance: no apparent distress Cardiovascular: normal rate Respiratory/Chest: decreased breath sounds Abdomen: distended Gabriele Honeycutt MD Jul 12, 2020 12:50
[2020-07-12 16:06] VITALS: BP 110/64
[2020-07-12 16:08] LABS: BASOPHILS % (AUTO) 0.5 % (0.0-2.0); EOSINOPHILS % (AUTO) 1.1 % (0.0-3.0); HEMATOCRIT 27.3 % (37.0-47.0); HEMOGLOBIN 9.1 G/DL (12.0-16.0); MEAN CORPUSCULAR VOLUME 91 FL (80-99); MONOCYTES % (AUTO) 3.7 % (1.0-10.0); NEUTROPHILS % (AUTO) 83.6 % (45.0-75.0); PLATELET COUNT 198 K/UL (150-450); RED CELL DISTRIBUTION WIDTH 14.5 % (11.6-14.8)
[2020-07-12 20:00] VITALS: BP 98/70
[2020-07-13] VITALS: BP 102/52
[2020-07-13 04:00] VITALS: BP 108/74
[2020-07-13] MEDS: Midodrine 10mg tab ORAL SCH ×3 (05:20→21:06)
[2020-07-13] MEDS: Piperacillin/Tazobactam 3.375 GM in NS 110 ML IVPB SCH ×3 (05:20→21:07)
[2020-07-13] MEDS: NovoLOG Insulin Flexpen SUBQ SCH ×4 (05:21→21:00)
--- NOTE | 2020-07-13 06:59 | Hematology/Onc Progress Note ---
Assessment/Plan Assessment/Plan Assessment and Recs # Sepsis due to Pyelonephritis --> septic protocol started --> is on ivfs --> abx as per ID ceftriaxone-->zosyn --> imaging noted --> urine culture sens and spec # Positive for right lower extremity common femoral deep venous thrombosis --> anticoagulation has been started-->lovenox sq --> does have Elevated ddimer # Anemia due to chronic disease --> panel as needed -> hgb 10.7 # Leukocytosis due to infection --> per ID abx # Fever with flu like symptoms --> r/o covid19 --> due to above # HL --> lipitor and asa # Tachycardia --> ivfs should improve # Dvt ppx lovenox sq Subjective Respiratory: Denies: no symptoms, cough, shortness of breath, SOB with excertion, SOB at rest, sputum, wheezing, other Gastrointestinal/Abdominal: Denies: no symptoms, abdomen distended, abdominal pain, black stools, tarry stools, blood in stool, constipated, diarrhea, difficulty swallowing, nausea, poor appetite, poor fluid intake, rectal bleeding, vomiting, other Hematologic/Lymphatic: Denies: no symptoms, anemia, easy bleeding, easy bruising, adenopathy, other Allergies: Coded Allergies: ERYTHROMYCIN BASE (Verified Allergy, Unknown, 11/12/16) Subjective 07/13 with valderrama, gt, nc, no bleeding, on abx Objective Objective Current Medications Medications (Trade) Dose Ordered Sig/Alvarado Route PRN Reason Start Time Stop Time Status Last Admin Dose Admin Acetaminophen (Tylenol) 650 mg Q4H PRN ORAL MILD PAIN/TEMP > 101F 07/09/20 02:30 08/08/20 02:29 Ascorbic Acid (Vitamin C) 500 mg DAILY ORAL 07/09/20 09:00 08/08/20 08:59 07/12/20 08:04 Atorvastatin Calcium (Lipitor) 10 mg BEDTIME GT 07/09/20 21:00 10/07/20 20:59 07/12/20 21:19 Bisacodyl (Dulcolax) 10 mg DAILY PRN RECTAL Constipation 07/09/20 02:30 10/07/20 02:29 Clonidine HCl (Catapres Tab) 0.1 mg Q8H PRN GT HYPERTENSION 07/09/20 02:30 10/07/20 02:29 Dextrose (Dextrose 50%) 25 ml Q30M PRN IV Hypoglycemia 07/09/20 02:45 10/07/20 02:44 Dextrose (Dextrose 50%) 50 ml Q30M PRN IV Hypoglycemia 07/09/20 02:45 10/07/20 02:44 Enoxaparin Sodium (Lovenox) 40 mg Q12HR SUBQ 07/10/20 09:00 10/08/20 08:59 07/12/20 21:21 Insulin Aspart (NovoLOG) BEFORE MEALS AND HS SUBQ 07/09/20 06:30 10/07/20 06:29 07/11/20 17:04 Levetiracetam (Keppra) 500 mg Q12HR GT 07/09/20 09:00 08/08/20 08:59 07/12/20 21:19 Midodrine (Pro-Amatine) 10 mg Q8HR ORAL 07/11/20 16:00 10/09/20 15:59 07/13/20 05:20 Multivitamins Therapeutic (Therapeutic Multivitamin) 1 ea DAILY ORAL 07/09/20 09:00 08/08/20 08:59 07/12/20 08:04 Piperacillin Sod/ Tazobactam Sod 3.375 gm/Sodium Chloride 110 ml @ 27.5 mls/hr EVERY 8 HOURS IVPB 07/10/20 10:00 07/15/20 09:59 07/13/20 05:20 Potassium Chloride (K-Dur) 20 meq TWICE A DAY GT 07/10/20 14:00 10/08/20 13:59 07/12/20 17:08 Last 24 Hour Vital Signs Date Time Temp Pulse Resp B/P (MAP) Pulse Ox O2 Delivery O2 Flow Rate FiO2 07/13/20 04:00 98.0 84 18 108/74 (85) 99 07/13/20 00:00 98.1 82 20 102/52 (69) 99 07/12/20 21:00 Nasal Cannula 3.0 07/12/20 20:00 97.8 84 20 98/70 (79) 96 07/12/20 16:06 97.7 71 18 110/64 (79) 98 07/12/20 12:00 97.4 67 18 101/53 (69) 96 07/12/20 08:25 Nasal Cannula 3.0 07/12/20 08:00 98.0 68 18 91/50 (64) 95 07/12/20 04:00 97.6 92 18 121/70 (87) 98 07/12/20 00:00 97.6 95 20 110/73 (85) 96 07/11/20 21:00 Nasal Cannula 3.0 07/11/20 20:00 98.9 96 20 103/65 (78) 95 07/11/20 16:00 98.0 99 18 100/60 (73) 100 07/11/20 12:00 96.7 98 20 110/56 (74) 98 07/11/20 09:00 Nasal Cannula 3.0 07/11/20 08:00 97.6 100 19 88/98 (95) 100 Intake and Output 07/12/20 07/13/20 19:00 07:00 Intake Total 1092.5 ml 50 ml Output Total 850 ml 750 ml Balance 242.5 ml -700 ml Intake Free Water 350 ml IV Total 192.5 ml Tube Feeding 550 ml 50 ml Output Urine Total 850 ml 750 ml Labs Test 07/10/20 10:24 07/10/20 21:02 07/11/20 05:20 07/11/20 05:34 D-Dimer 1.50 mg/L FEU (0.00-0.49) POC Whole Blood Glucose 90 MG/DL (74-106) 120 MG/DL (74-106) White Blood Count 17.7 K/UL (4.8-10.8) Red Blood Count 3.55 M/UL (4.20-5.40) Hemoglobin 10.5 G/DL (12.0-16.0) Hematocrit 33.3 % (37.0-47.0) Mean Corpuscular Volume 94 FL (80-99) Mean Corpuscular Hemoglobin 29.6 PG (27.0-31.0) Mean Corpuscular Hemoglobin Concent 31.6 G/DL (32.0-36.0) Red Cell Distribution Width 15.0 % (11.6-14.8) Platelet Count 179 K/UL (150-450) Mean Platelet Volume 9.5 FL (6.5-10.1) Neutrophils (%) (Auto) 84.5 % (45.0-75.0) Lymphocytes (%) (Auto) 9.7 % (20.0-45.0) Monocytes (%) (Auto) 4.4 % (1.0-10.0) Eosinophils (%) (Auto) 1.1 % (0.0-3.0) Basophils (%) (Auto) 0.3 % (0.0-2.0) Sodium Level 141 MMOL/L (136-145) Potassium Level 3.6 MMOL/L (3.5-5.1) Chloride Level 106 MMOL/L (98-107) Carbon Dioxide Level 28 MMOL/L (21-32) Anion Gap 7 mmol/L (5-15) Blood Urea Nitrogen 10 mg/dL (7-18) Creatinine 0.3 MG/DL (0.55-1.30) Estimat Glomerular Filtration Rate > 60 mL/min (>60) Glucose Level 106 MG/DL (74-106) Uric Acid 0.8 MG/DL (2.6-7.2) Calcium Level 8.7 MG/DL (8.5-10.1) Phosphorus Level 2.6 MG/DL (2.5-4.9) Magnesium Level 2.0 MG/DL (1.8-2.4) Total Bilirubin 0.4 MG/DL (0.2-1.0) Aspartate Amino Transf (AST/SGOT) 23 U/L (15-37) Alanine Aminotransferase (ALT/SGPT) 46 U/L (12-78) Alkaline Phosphatase 87 U/L (46-116) C-Reactive Protein, Quantitative 9.5 mg/dL (0.00-0.90) Total Protein 6.8 G/DL (6.4-8.2) Albumin 2.0 G/DL (3.4-5.0) Globulin 4.8 g/dL Albumin/Globulin Ratio 0.4 (1.0-2.7) Test 07/11/20 11:15 07/11/20 16:36 07/11/20 20:44 07/12/20 11:17 POC Whole Blood Glucose 155 MG/DL (74-106) 115 MG/DL (74-106) Test 07/12/20 15:15 07/12/20 15:57 07/12/20 20:09 White Blood Count 14.0 K/UL (4.8-10.8) Red Blood Count 3.00 M/UL (4.20-5.40) Hemoglobin 9.1 G/DL (12.0-16.0) Hematocrit 27.3 % (37.0-47.0) Mean Corpuscular Volume 91 FL (80-99) Mean Corpuscular Hemoglobin 30.2 PG (27.0-31.0) Mean Corpuscular Hemoglobin Concent 33.2 G/DL (32.0-36.0) Red Cell Distribution Width 14.5 % (11.6-14.8) Platelet Count 198 K/UL (150-450) Mean Platelet Volume 10.6 FL (6.5-10.1) Neutrophils (%) (Auto) 83.6 % (45.0-75.0) Lymphocytes (%) (Auto) 11.0 % (20.0-45.0) Monocytes (%) (Auto) 3.7 % (1.0-10.0) Eosinophils (%) (Auto) 1.1 % (0.0-3.0) Basophils (%) (Auto) 0.5 % (0.0-2.0) POC Whole Blood Glucose 111 MG/DL (74-106) Height (Feet): 5 Height (Inches): 1.00 Weight (Pounds): 99 Objective Sp02 EP Interpretation: reviewed, normal General Appearance: no apparent distress, non-verbal ++contracted Head: normocephalic, atraumatic ENT: hearing grossly normal, no angioedema Respiratory: chest non-tender, lungs clear, normal breath sounds,++2l Nc Cardiovascular: no edema, tachycardia Gastrointestinal: normal bowel sounds, non tender, soft, ++gt Rectal: deferred Musculoskeletal: normal inspection Neurologic: alert, motor strength/tone normal, no focal defects Skin: other - See RN skin exam. Lymphatic: no adenopathy Gu: valderrama+++ Nate Begum MD Jul 13, 2020 06:59
[2020-07-13 08:00] VITALS: BP_SYST 109; BP_SYST 141; BP_DIAS 58; BP_DIAS 74
[2020-07-13 08:04] LABS: ALANINE AMINOTRANSFERASE 34 U/L (12-78); ALBUMIN 1.8 G/DL (3.4-5.0); ALBUMIN/GLOBULIN RATIO 0.4 (1.0-2.7); ALKALINE PHOSPHATASE 64 U/L (46-116); ANION GAP 5 mmol/L (5-15); ASPARTATE AMINO TRANSFERASE 22 U/L (15-37); BILIRUBIN,TOTAL 0.3 MG/DL (0.2-1.0); BLOOD UREA NITROGEN 14 mg/dL (7-18); CALCIUM 8.3 MG/DL (8.5-10.1); CARBON DIOXIDE 28 MMOL/L (21-32); CHLORIDE 105 MMOL/L (98-107); CREATININE 0.3 MG/DL (0.55-1.30); PHOSPHORUS 2.6 MG/DL (2.5-4.9); POTASSIUM 3.7 MMOL/L (3.5-5.1); SODIUM 138 MMOL/L (136-145)
--- NOTE | 2020-07-13 09:15 | Infectious Diseases Prog Note ---
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 but with fever at [facility] [employer] Lymphopenia Hypoxic w/ NC O2 requirement, r/o PNA 07/08 BCx NTD UA+, UCx <10k GNR COVID rapid test neg, PCR p CXR: No acute process +RLE DVT on US 07/09 Elevated LFTs 67 / 120 Abd TTP 06/29 Abd US wnl Acute hep panel neg Cr 0.5 HIV screen neg PMH: DM CHF Dementia SNF resident Plan: Cont Zosyn #4/7-10 given persistent leukocytosis Tx of RLE DVT per primary, on lovenox BID Consider CTA chest to r/o PE, could be cause of persistent leukocytosis, hypoxia F/u COVID PCR Trend WBC 07/10 SP CTX #2 Monitor CBC/CMP Monitor temp curve, hemodynamics Monitor resp status D/w RN Thank you for this consult. [facility] will continue to follow. Subjective Allergies: Coded Allergies: ERYTHROMYCIN BASE (Verified Allergy, Unknown, 11/12/16) AF WBC down to 14 yesterday NAD on 3L NC Objective Last 24 Hour Vital Signs Date Time Temp Pulse Resp B/P (MAP) Pulse Ox O2 Delivery O2 Flow Rate FiO2 07/13/20 08:00 97.5 85 18 141/58 (85) 90 07/13/20 04:00 98.0 84 18 108/74 (85) 99 07/13/20 00:00 98.1 82 20 102/52 (69) 99 07/12/20 21:00 Nasal Cannula 3.0 07/12/20 20:00 97.8 84 20 98/70 (79) 96 07/12/20 16:06 97.7 71 18 110/64 (79) 98 07/12/20 12:00 97.4 67 18 101/53 (69) 96 Height (Feet): 5 Height (Inches): 1.00 Weight (Pounds): 99 Gen: NAD HEENT: NCAT Pulm: BL chest rise Abd: Non-distended Ext: No c/c/e Skin: No visible rashes Neuro: Awake Laboratory Tests Test 07/12/20 11:17 07/12/20 15:15 07/12/20 15:57 07/12/20 20:09 POC Whole Blood Glucose Pending Pending 111 MG/DL (74-106) H White Blood Count 14.0 K/UL (4.8-10.8) H Red Blood Count 3.00 M/UL (4.20-5.40) L Hemoglobin 9.1 G/DL (12.0-16.0) L Hematocrit 27.3 % (37.0-47.0) L Mean Corpuscular Volume 91 FL (80-99) Mean Corpuscular Hemoglobin 30.2 PG (27.0-31.0) Mean Corpuscular Hemoglobin Concent 33.2 G/DL (32.0-36.0) Red Cell Distribution Width 14.5 % (11.6-14.8) Platelet Count 198 K/UL (150-450) Mean Platelet Volume 10.6 FL (6.5-10.1) H Neutrophils (%) (Auto) 83.6 % (45.0-75.0) H Lymphocytes (%) (Auto) 11.0 % (20.0-45.0) L Monocytes (%) (Auto) 3.7 % (1.0-10.0) Eosinophils (%) (Auto) 1.1 % (0.0-3.0) Basophils (%) (Auto) 0.5 % (0.0-2.0) Test 07/13/20 05:00 Sodium Level 138 MMOL/L (136-145) Potassium Level 3.7 MMOL/L (3.5-5.1) Chloride Level 105 MMOL/L (98-107) Carbon Dioxide Level 28 MMOL/L (21-32) Anion Gap 5 mmol/L (5-15) Blood Urea Nitrogen 14 mg/dL (7-18) Creatinine 0.3 MG/DL (0.55-1.30) L Estimat Glomerular Filtration Rate > 60 mL/min (>60) Glucose Level 117 MG/DL (74-106) H Calcium Level 8.3 MG/DL (8.5-10.1) L Phosphorus Level 2.6 MG/DL (2.5-4.9) Magnesium Level 2.1 MG/DL (1.8-2.4) Total Bilirubin 0.3 MG/DL (0.2-1.0) Aspartate Amino Transf (AST/SGOT) 22 U/L (15-37) Alanine Aminotransferase (ALT/SGPT) 34 U/L (12-78) Alkaline Phosphatase 64 U/L (46-116) Total Protein 6.4 G/DL (6.4-8.2) Albumin 1.8 G/DL (3.4-5.0) L Globulin 4.6 g/dL Albumin/Globulin Ratio 0.4 (1.0-2.7) L Current Medications Medications (Trade) Dose Ordered Sig/Alvarado Route PRN Reason Start Time Stop Time Status Last Admin Dose Admin Acetaminophen (Tylenol) 650 mg Q4H PRN ORAL MILD PAIN/TEMP > 101F 07/09/20 02:30 08/08/20 02:29 Ascorbic Acid (Vitamin C) 500 mg DAILY ORAL 07/09/20 09:00 08/08/20 08:59 07/12/20 08:04 Atorvastatin Calcium (Lipitor) 10 mg BEDTIME GT 07/09/20 21:00 10/07/20 20:59 07/12/20 21:19 Bisacodyl (Dulcolax) 10 mg DAILY PRN RECTAL Constipation 07/09/20 02:30 10/07/20 02:29 Clonidine HCl (Catapres Tab) 0.1 mg Q8H PRN GT HYPERTENSION 07/09/20 02:30 10/07/20 02:29 Dextrose (Dextrose 50%) 25 ml Q30M PRN IV Hypoglycemia 07/09/20 02:45 10/07/20 02:44 Dextrose (Dextrose 50%) 50 ml Q30M PRN IV Hypoglycemia 07/09/20 02:45 10/07/20 02:44 Enoxaparin Sodium (Lovenox) 40 mg Q12HR SUBQ 07/10/20 09:00 10/08/20 08:59 07/12/20 21:21 Insulin Aspart (NovoLOG) BEFORE MEALS AND HS SUBQ 07/09/20 06:30 10/07/20 06:29 07/11/20 17:04 Levetiracetam (Keppra) 500 mg Q12HR GT 07/09/20 09:00 08/08/20 08:59 07/12/20 21:19 Midodrine (Pro-Amatine) 10 mg Q8HR ORAL 07/11/20 16:00 10/09/20 15:59 07/13/20 05:20 Multivitamins Therapeutic (Therapeutic Multivitamin) 1 ea DAILY ORAL 07/09/20 09:00 08/08/20 08:59 07/12/20 08:04 Piperacillin Sod/ Tazobactam Sod 3.375 gm/Sodium Chloride 110 ml @ 27.5 mls/hr EVERY 8 HOURS IVPB 07/10/20 10:00 07/15/20 09:59 07/13/20 05:20 Potassium Chloride (K-Dur) 20 meq TWICE A DAY GT 07/10/20 14:00 10/08/20 13:59 07/12/20 17:08 Beth Marsh M.D. Jul 13, 2020 09:15
[2020-07-13] MEDS: Multivitamin w/Minerals tab ORAL SCH (09:26)
[2020-07-13] MEDS: Ascorbic Acid 500mg tab ORAL SCH (09:26)
[2020-07-13] MEDS: levETIRAcetam 500mg/5ml Liquid GT SCH ×2 (09:26→21:06)
[2020-07-13] MEDS ORDERED: Enoxaparin 60mg Inj SUBQ SCH (09:45)
[2020-07-13 12:00] VITALS: BP 110/61
--- NOTE | 2020-07-13 12:21 | Nephrology Progress Note ---
Assessment/Plan Problem List: (1) Dehydration (2) Electrolyte imbalance (3) UTI (urinary tract infection) (4) Sepsis (5) Malnutrition (6) Pyelonephritis (7) Leukocytosis Assessment Electrolyte imbalance, hypernatremia, hypokalemia Pyelonephritis, leukocytosis Fever, tachycardia Plan July 13: CHEM panel reviewed. Renal parameters stable. Continue per consultants. Midodrine for BP support on board. July 12: No chemistry panel drawn today. Medication list reviewed. Continue to monitor electrolytes and renal parameters. Continue per consultants. July 11: Labs reviewed. Renal parameters stable. Electrolytes within normal limit. Will stop IV fluid. Will start midodrine for low blood pressure. July 10: Serum sodium improved. Low potassium and low phosphorus addressed. IV down to 50 cc an hour. Stable from renal standpoint of view. Continue to monitor electrolytes and chemistries. Previously: Change IV to D5W Potassium supplement Anemia work-up Albumin bolus Monitor electrolytes and renal parameters Per orders Subjective ROS Limited/Unobtainable: Yes Objective Objective Last 24 Hour Vital Signs Date Time Temp Pulse Resp B/P (MAP) Pulse Ox O2 Delivery O2 Flow Rate FiO2 07/13/20 08:00 98.1 81 21 109/74 (86) 96 07/13/20 04:00 98.0 84 18 108/74 (85) 99 07/13/20 00:00 98.1 82 20 102/52 (69) 99 07/12/20 21:00 Nasal Cannula 3.0 07/12/20 20:00 97.8 84 20 98/70 (79) 96 07/12/20 16:06 97.7 71 18 110/64 (79) 98 Intake and Output 07/12/20 07/13/20 19:00 07:00 Intake Total 1092.5 ml 700 ml Output Total 850 ml 750 ml Balance 242.5 ml -50 ml Intake Free Water 350 ml 150 ml IV Total 192.5 ml Tube Feeding 550 ml 550 ml Output Urine Total 850 ml 750 ml Laboratory Tests 07/12/20 15:15: White Blood Count 14.0H, Red Blood Count 3.00L, Hemoglobin 9.1L, Hematocrit 27.3L, Mean Corpuscular Volume 91, Mean Corpuscular Hemoglobin 30.2, Mean Corpuscular Hemoglobin Concent 33.2, Red Cell Distribution Width 14.5, Platelet Count 198, Mean Platelet Volume 10.6H, Neutrophils (%) (Auto) 83.6H, Lymphocytes (%) (Auto) 11.0L, Monocytes (%) (Auto) 3.7, Eosinophils (%) (Auto) 1.1, Basophils (%) (Auto) 0.5 07/12/20 15:57: POC Whole Blood Glucose [Pending] 07/12/20 20:09: POC Whole Blood Glucose 111H 07/13/20 05:00: Sodium Level 138, Potassium Level 3.7, Chloride Level 105, Carbon Dioxide Level 28, Anion Gap 5, Blood Urea Nitrogen 14, Creatinine 0.3L, Estimat Glomerular Filtration Rate > 60, Glucose Level 117H, Calcium Level 8.3L, Phosphorus Level 2.6, Magnesium Level 2.1, Total Bilirubin 0.3, Aspartate Amino Transf (AST/SGOT) 22, Alanine Aminotransferase (ALT/SGPT) 34, Alkaline Phosphatase 64, Total Protein 6.4, Albumin 1.8L, Globulin 4.6, Albumin/Globulin Ratio 0.4L 07/13/20 11:54: POC Whole Blood Glucose 121H Height (Feet): 5 Height (Inches): 1.00 Weight (Pounds): 99 Cardiovascular: normal rate Respiratory/Chest: decreased breath sounds Abdomen: soft Gabriele Honeycutt MD Jul 13, 2020 12:21
--- NOTE | 2020-07-13 13:27 | Surgery Progress Note ---
Surgery Progress Note Subjective Symptoms: improved, pain absent, tolerating diet, passing flatus Objective Last 24 Hour Vital Signs Date Time Temp Pulse Resp B/P (MAP) Pulse Ox O2 Delivery O2 Flow Rate FiO2 07/13/20 12:00 96.7 80 19 110/61 (77) 96 07/13/20 09:00 Nasal Cannula 3.0 07/13/20 08:00 98.1 81 21 109/74 (86) 96 07/13/20 04:00 98.0 84 18 108/74 (85) 99 07/13/20 00:00 98.1 82 20 102/52 (69) 99 07/12/20 21:00 Nasal Cannula 3.0 07/12/20 20:00 97.8 84 20 98/70 (79) 96 07/12/20 16:06 97.7 71 18 110/64 (79) 98 I&O Intake and Output 07/12/20 07/13/20 19:00 07:00 Intake Total 1092.5 ml 700 ml Output Total 850 ml 750 ml Balance 242.5 ml -50 ml Intake Free Water 350 ml 150 ml IV Total 192.5 ml Tube Feeding 550 ml 550 ml Output Urine Total 850 ml 750 ml Dressing: saturated Cardiovascular: RSR Respiratory: decreased breath sounds Abdomen: soft, non-tender, present bowel sounds, non-distended Extremities: no tenderness, no cyanosis Laboratory Tests Test 07/12/20 15:15 07/12/20 15:57 07/12/20 20:09 07/13/20 05:00 White Blood Count 14.0 K/UL (4.8-10.8) H Red Blood Count 3.00 M/UL (4.20-5.40) L Hemoglobin 9.1 G/DL (12.0-16.0) L Hematocrit 27.3 % (37.0-47.0) L Mean Corpuscular Volume 91 FL (80-99) Mean Corpuscular Hemoglobin 30.2 PG (27.0-31.0) Mean Corpuscular Hemoglobin Concent 33.2 G/DL (32.0-36.0) Red Cell Distribution Width 14.5 % (11.6-14.8) Platelet Count 198 K/UL (150-450) Mean Platelet Volume 10.6 FL (6.5-10.1) H Neutrophils (%) (Auto) 83.6 % (45.0-75.0) H Lymphocytes (%) (Auto) 11.0 % (20.0-45.0) L Monocytes (%) (Auto) 3.7 % (1.0-10.0) Eosinophils (%) (Auto) 1.1 % (0.0-3.0) Basophils (%) (Auto) 0.5 % (0.0-2.0) POC Whole Blood Glucose Pending 111 MG/DL (74-106) H Sodium Level 138 MMOL/L (136-145) Potassium Level 3.7 MMOL/L (3.5-5.1) Chloride Level 105 MMOL/L (98-107) Carbon Dioxide Level 28 MMOL/L (21-32) Anion Gap 5 mmol/L (5-15) Blood Urea Nitrogen 14 mg/dL (7-18) Creatinine 0.3 MG/DL (0.55-1.30) L Estimat Glomerular Filtration Rate > 60 mL/min (>60) Glucose Level 117 MG/DL (74-106) H Calcium Level 8.3 MG/DL (8.5-10.1) L Phosphorus Level 2.6 MG/DL (2.5-4.9) Magnesium Level 2.1 MG/DL (1.8-2.4) Total Bilirubin 0.3 MG/DL (0.2-1.0) Aspartate Amino Transf (AST/SGOT) 22 U/L (15-37) Alanine Aminotransferase (ALT/SGPT) 34 U/L (12-78) Alkaline Phosphatase 64 U/L (46-116) Total Protein 6.4 G/DL (6.4-8.2) Albumin 1.8 G/DL (3.4-5.0) L Globulin 4.6 g/dL Albumin/Globulin Ratio 0.4 (1.0-2.7) L Test 07/13/20 11:54 POC Whole Blood Glucose 121 MG/DL (74-106) H Plan Problems: (1) Fever (2) Leukocytosis Assessment & Plan: on abx id input appreciated wounds not infected nutrition (3) Tachycardia (4) Decubitus skin ulcer (5) Pyelonephritis (6) Malnutrition (7) Sepsis Assessment & Plan: ill appearing poor skin turgor leukocytosis anemia h/h low trending prbc prn Needs based on underweight, DM 35.5kg 30-40 kcals/kg 4823-9633 total kcals 1.25-2 g protein/kg 44-71 g total protein 25-35ml/kcal mL/kg [phone] total fluid mLs NUTRITION DIAGNOSIS: Swallowing difficulty R/T dysphagia as evidenced by pt is Gtube dependent. ENTERAL NUTRITION RECOMMENDATIONS: Glucerna 1.2 @50ml x24 hrs to provide 1200ml, 1440 kcal, 72g pro, 966ml free H2O - As able rec carb control formula for h/o DM. - Start @30ml/hr for 6 hrs, advance as tolerated 10ml/hr q4-6 hrs to goal. - Flush per MD/ HOB over 30 degrees ADDITIONAL RECOMMENDATIONS: - Per SNF: 5'3" and 78lbs/35.45kg. - Check lytes daily, replete as needed - A1c for eval of glycemic control - Wound care: advanced per RN, f/up with WC RN. Add LINA BID w/ GT, Vit C 250mg BID (2) Decubitus skin ulcer Assessment & Plan: This is an emaciated pt whom presented on admission with Multiple Pressure Injuries. Unstageable Pressure Injury Sacrum (L)11cm x (W)10.5cm. Base of wound is 90% necrotic, surrounding 10% moist, erythematous borders. Edges adherent to base of wound. No odor or exudate noted. Unstageable Pressure Injury L trochanter(L)3.5cm x (W)5.5cm. Base of wound is 95% necrotic, 5% surrounding borders arleen. Edges adherent to base of wound. No odor or exudate noted.Periwound is pale. Non-Blanchable erythema without induration L Ischium. Non-Blanchable erythema without induration bony prominences of L Hip/L Trochanter/L Ischial tuberosity. DTPI L Heel(L)2.5cmx(W)2cm.Base of Pressure Injury is fluctuant, Maroon in co lour with surrounding non-blanchable erythema. Non-Blanchable erythema without induration L Hallux (L)1cm x (W)2cm. DTPI R Heel (L)6cm x (W)8cm.Base of Pressure Injury is fluctuant and maroon in colour. Edges are adherent to base of Pressure Injury. Unstageable Pressure Injury dorsal R 1st metatarsal(L)0.8cm x (W)0.6cm.Base of wound is 100% necrotic with marginal erythema along borders . Edges adherent to base of wound.. Non-Blanchable erythema without induration distal/lateral R foot (L)1.5cm x (W)1.5cm. Non-Blanchable erythema without induration R Hallux. Tx.Plan: Cleanse Sacral wound with Saline. Apply Therahoney. Apply Moisture Barrier Paste periwound. Cover with Optifoam drsg. Change every 3 days and prn. Cleanse L Trochanteric wound with Saline.Apply Therhaoney.Apply Moisture Barrier paste Periwound. Cover with Optifoam drsg. Change every 3 days and prn. Apply Moisture Barrier Paste to R and L ischium. Cover each site with Optifoam drsg. Change every 3 days and prn. Cover R hip /R Trochanter with Optifoam drsgs. Change every 7 days and prn. Apply Cavilon Skin Barrier to R heel , R 1st metatarsal,R hallux, Distal /Lateral R foot. Cover each Pressure Injury with Optifoam drsg. Change every 7 days and prn. Apply Cavilon Skin Barrier o L Heel , L Hallux, Distal lateral L Foot . Cover each Pressure Injury with Optifoam drsg. Change every 7 days and prn. Reposition at least every 2hours or as tolerated. Off-load heels with Pillow. APM/SOLOMON Mattress Overlay. (3) UTI (urinary tract infection) (4) Pneumonia (5) Sepsis Assessment & Plan: leukocytosis lactic acidosis malnutrition underweight bmi 13 micro noted on abx as per ID cont abx wounds unlikely etiology will follow with local care and evaluation to ensure improving thank you There is a slight degree of image degradation due to motion artifact. The right upper lobe is largely clear following may be some interstitial septal thickening in the apex. The right middle lobe is clear. The right lower lobe demonstrates some atelectasis at the right lung base. There is also a focal 6 mm nodular opacity, image 50 series 5. There is a vague mosaic attenuation pattern. Left upper lobe demonstrates scattered areas of mosaic attenuation superiorly image 10 of series 5 demonstrates a 3 mm left upper lobe nodule.. Irregular consolidative opacities are seen in the inferior left upper lobe. More extensive consolidation in a patchy and irregular distribution are seen in the left lower lobe. There is a small left pleural effusion. The heart is upper limits of normal in size. The ascending thoracic aorta is mildly ectatic. No mediastinal or hilar mass or adenopathy. Unremarkable. No axillary or chest wall mass or adenopathy demonstrated. The bones are unremarkable except for minimal degenerative spondylosis changes and slight anterior bowing of the sternum. The included lung bases demonstrate a gastrostomy which appears well-positioned. There is trace ascites Impression: Opacities in the left lower lobe and also to a lesser extent in the left upper lobe and minimally in the right lower lobe. Appearance is consistent with consolidation rather than mass. Most likely represents pneumonia, appearance nonspecific as regards etiology. Patchy pulmonary edema also possible, among other possibilities Small left pleural effusion Bilateral small nodules, as described. No further follow-up necessary if there are no risk factors for lung carcinoma. There are significant risk factors, then short interval follow-up CT in 6-12 months is recommended Trace ascites (8) UTI (urinary tract infection) (9) Pneumonia (10) PEG (percutaneous endoscopic gastrostomy) adjustment/replacement/removal Chao Ovalle Jul 13, 2020 13:27
[2020-07-13 16:00] VITALS: BP 117/81
[2020-07-13 20:00] VITALS: BP 101/54
[2020-07-13] MEDS: Enoxaparin 40mg Inj SUBQ SCH (21:08)
--- NOTE | 2020-07-13 22:20 | General Progress Note ---
Subjective Constitutional: Reports: no symptoms HEENT: Reports: no symptoms Cardiovascular: Reports: no symptoms Respiratory: Reports: no symptoms Gastrointestinal/Abdominal: Reports: no symptoms Genitourinary: Reports: no symptoms Neurologic/Psychiatric: Reports: no symptoms Endocrine: Reports: no symptoms Hematologic/Lymphatic: Reports: no symptoms Allergies: Coded Allergies: ERYTHROMYCIN BASE (Verified Allergy, Unknown, 11/12/16) Objective Last 24 Hour Vital Signs Date Time Temp Pulse Resp B/P (MAP) Pulse Ox O2 Delivery O2 Flow Rate FiO2 07/13/20 21:00 Nasal Cannula 3.0 07/13/20 20:00 97.9 88 18 101/54 (70) 99 07/13/20 16:00 98.1 68 20 117/81 (93) 96 07/13/20 12:00 96.7 80 19 110/61 (77) 96 07/13/20 09:00 Nasal Cannula 3.0 07/13/20 08:00 98.1 81 21 109/74 (86) 96 07/13/20 04:00 98.0 84 18 108/74 (85) 99 07/13/20 00:00 98.1 82 20 102/52 (69) 99 Intake and Output 07/12/20 07/13/20 19:00 07:00 Intake Total 1092.5 ml 750 ml Output Total 850 ml 750 ml Balance 242.5 ml 0 ml Intake Free Water 350 ml 150 ml IV Total 192.5 ml Tube Feeding 550 ml 600 ml Output Urine Total 850 ml 750 ml Laboratory Tests 07/13/20 05:00: Sodium Level 138, Potassium Level 3.7, Chloride Level 105, Carbon Dioxide Level 28, Anion Gap 5, Blood Urea Nitrogen 14, Creatinine 0.3L, Estimat Glomerular Filtration Rate > 60, Glucose Level 117H, Calcium Level 8.3L, Phosphorus Level 2.6, Magnesium Level 2.1, Total Bilirubin 0.3, Aspartate Amino Transf (AST/SGOT) 22, Alanine Aminotransferase (ALT/SGPT) 34, Alkaline Phosphatase 64, Total Protein 6.4, Albumin 1.8L, Globulin 4.6, Albumin/Globulin Ratio 0.4L 07/13/20 11:54: POC Whole Blood Glucose 121H 07/13/20 17:32: POC Whole Blood Glucose 121H 07/13/20 20:28: POC Whole Blood Glucose 112H Height (Feet): 5 Height (Inches): 1.00 Weight (Pounds): 99 General Appearance: no apparent distress, lethargic EENT: normal ENT inspection Neck: supple Cardiovascular: normal rate, regular rhythm, no gallop/murmur, no JVD Respiratory/Chest: lungs clear, normal breath sounds, no respiratory distress, no accessory muscle use Abdomen: normal bowel sounds, non tender, soft, no organomegaly, no mass Extremities: non-tender Neurologic: unresponsive, aphasia Assessment/Plan Status Narrative Patient is awake and alert afebrile hemodynamically stable without apparent distress medical record reviewed in detail with admitted for sepsis of the urinary tract was found to have DVT and responding to piperacillin tazobactam demonstrated by reduction lof WBC from 20,000-14,000 she is also on Lovenox and her electrolytes are normal repeat UA as well as blood test and chest x-ray will be done in a.m. we will continue with Gale Stevenson MD, MD Jul 13, 2020 22:20
[2020-07-14] VITALS: BP 104/56
[2020-07-14 04:00] VITALS: BP 98/57
[2020-07-14] MEDS: Midodrine 10mg tab ORAL SCH ×3 (05:56→21:29)
[2020-07-14] MEDS: Piperacillin/Tazobactam 3.375 GM in NS 110 ML IVPB SCH ×3 (05:57→21:30)
[2020-07-14] MEDS: NovoLOG Insulin Flexpen SUBQ SCH ×4 (06:00→20:49)
--- NOTE | 2020-07-14 06:53 | Hematology/Onc Progress Note ---
Assessment/Plan Assessment/Plan Assessment and Recs # Sepsis due to Pyelonephritis --> septic protocol started --> is on ivfs --> abx as per ID ceftriaxone-->zosyn --> imaging noted --> urine culture sens and spec # Positive for right lower extremity common femoral deep venous thrombosis --> anticoagulation has been started-->lovenox sq --> does have Elevated ddimer # Anemia due to chronic disease --> panel as needed -> hgb 10.7 # Leukocytosis due to infection --> per ID abx # Fever with flu like symptoms --> r/o covid19 --> due to above # HL --> lipitor and asa # Tachycardia --> ivfs should improve # Dvt ppx lovenox sq Subjective Allergies: Coded Allergies: ERYTHROMYCIN BASE (Verified Allergy, Unknown, 11/12/16) All Systems: reviewed and negative except above Subjective 07/13 with valderrama, gt, nc, no bleeding, on abx 07/14 labs ordered, valderrama, nc, no new events, cbc pending Objective Objective Current Medications Medications (Trade) Dose Ordered Sig/Alvarado Route PRN Reason Start Time Stop Time Status Last Admin Dose Admin Acetaminophen (Tylenol) 650 mg Q4H PRN ORAL MILD PAIN/TEMP > 101F 07/09/20 02:30 08/08/20 02:29 Ascorbic Acid (Vitamin C) 500 mg DAILY ORAL 07/09/20 09:00 08/08/20 08:59 07/13/20 09:26 Atorvastatin Calcium (Lipitor) 10 mg BEDTIME GT 07/09/20 21:00 10/07/20 20:59 07/13/20 21:07 Bisacodyl (Dulcolax) 10 mg DAILY PRN RECTAL Constipation 07/09/20 02:30 10/07/20 02:29 Clonidine HCl (Catapres Tab) 0.1 mg Q8H PRN GT HYPERTENSION 07/09/20 02:30 10/07/20 02:29 Dextrose (Dextrose 50%) 25 ml Q30M PRN IV Hypoglycemia 07/09/20 02:45 10/07/20 02:44 Dextrose (Dextrose 50%) 50 ml Q30M PRN IV Hypoglycemia 07/09/20 02:45 10/07/20 02:44 Enoxaparin Sodium (Lovenox) 40 mg Q12HR SUBQ 07/13/20 21:00 10/11/20 20:59 07/13/20 21:08 Insulin Aspart (NovoLOG) BEFORE MEALS AND HS SUBQ 07/09/20 06:30 10/07/20 06:29 07/11/20 17:04 Levetiracetam (Keppra) 500 mg Q12HR GT 07/09/20 09:00 08/08/20 08:59 07/13/20 21:06 Midodrine (Pro-Amatine) 10 mg Q8HR ORAL 07/11/20 16:00 10/09/20 15:59 07/14/20 05:56 Multivitamins Therapeutic (Therapeutic Multivitamin) 1 ea DAILY ORAL 07/09/20 09:00 08/08/20 08:59 07/13/20 09:26 Piperacillin Sod/ Tazobactam Sod 3.375 gm/Sodium Chloride 110 ml @ 27.5 mls/hr EVERY 8 HOURS IVPB 07/10/20 10:00 07/15/20 09:59 07/14/20 05:57 Potassium Chloride (K-Dur) 20 meq TWICE A DAY GT 07/10/20 14:00 10/08/20 13:59 07/13/20 17:27 Last 24 Hour Vital Signs Date Time Temp Pulse Resp B/P (MAP) Pulse Ox O2 Delivery O2 Flow Rate FiO2 07/14/20 04:00 98.0 92 20 98/57 (71) 94 07/14/20 00:00 98.7 94 20 104/56 (72) 96 07/13/20 21:00 Nasal Cannula 3.0 07/13/20 20:00 97.9 88 18 101/54 (70) 99 07/13/20 16:00 98.1 68 20 117/81 (93) 96 07/13/20 12:00 96.7 80 19 110/61 (77) 96 07/13/20 09:00 Nasal Cannula 3.0 07/13/20 08:00 98.1 81 21 109/74 (86) 96 07/13/20 04:00 98.0 84 18 108/74 (85) 99 07/13/20 00:00 98.1 82 20 102/52 (69) 99 07/12/20 21:00 Nasal Cannula 3.0 07/12/20 20:00 97.8 84 20 98/70 (79) 96 07/12/20 16:06 97.7 71 18 110/64 (79) 98 07/12/20 12:00 97.4 67 18 101/53 (69) 96 07/12/20 08:25 Nasal Cannula 3.0 07/12/20 08:00 98.0 68 18 91/50 (64) 95 Intake and Output 07/13/20 07/14/20 19:00 07:00 Intake Total 770 ml 50 ml Output Total 1200 ml Balance -430 ml 50 ml IV Total 220 ml Tube Feeding 550 ml 50 ml Output Urine Total 1200 ml # Voids 3 Labs Test 07/11/20 11:15 07/11/20 16:36 07/11/20 20:44 07/12/20 11:17 POC Whole Blood Glucose 155 MG/DL (74-106) 115 MG/DL (74-106) Test 07/12/20 15:15 07/12/20 15:57 07/12/20 20:09 07/13/20 05:00 White Blood Count 14.0 K/UL (4.8-10.8) Red Blood Count 3.00 M/UL (4.20-5.40) Hemoglobin 9.1 G/DL (12.0-16.0) Hematocrit 27.3 % (37.0-47.0) Mean Corpuscular Volume 91 FL (80-99) Mean Corpuscular Hemoglobin 30.2 PG (27.0-31.0) Mean Corpuscular Hemoglobin Concent 33.2 G/DL (32.0-36.0) Red Cell Distribution Width 14.5 % (11.6-14.8) Platelet Count 198 K/UL (150-450) Mean Platelet Volume 10.6 FL (6.5-10.1) Neutrophils (%) (Auto) 83.6 % (45.0-75.0) Lymphocytes (%) (Auto) 11.0 % (20.0-45.0) Monocytes (%) (Auto) 3.7 % (1.0-10.0) Eosinophils (%) (Auto) 1.1 % (0.0-3.0) Basophils (%) (Auto) 0.5 % (0.0-2.0) POC Whole Blood Glucose 111 MG/DL (74-106) Sodium Level 138 MMOL/L (136-145) Potassium Level 3.7 MMOL/L (3.5-5.1) Chloride Level 105 MMOL/L (98-107) Carbon Dioxide Level 28 MMOL/L (21-32) Anion Gap 5 mmol/L (5-15) Blood Urea Nitrogen 14 mg/dL (7-18) Creatinine 0.3 MG/DL (0.55-1.30) Estimat Glomerular Filtration Rate > 60 mL/min (>60) Glucose Level 117 MG/DL (74-106) Calcium Level 8.3 MG/DL (8.5-10.1) Phosphorus Level 2.6 MG/DL (2.5-4.9) Magnesium Level 2.1 MG/DL (1.8-2.4) Total Bilirubin 0.3 MG/DL (0.2-1.0) Aspartate Amino Transf (AST/SGOT) 22 U/L (15-37) Alanine Aminotransferase (ALT/SGPT) 34 U/L (12-78) Alkaline Phosphatase 64 U/L (46-116) Total Protein 6.4 G/DL (6.4-8.2) Albumin 1.8 G/DL (3.4-5.0) Globulin 4.6 g/dL Albumin/Globulin Ratio 0.4 (1.0-2.7) Test 07/13/20 05:16 07/13/20 11:54 07/13/20 17:32 07/13/20 20:28 POC Whole Blood Glucose 127 MG/DL (74-106) 121 MG/DL (74-106) 121 MG/DL (74-106) 112 MG/DL (74-106) Test 07/14/20 05:00 07/14/20 06:00 POC Whole Blood Glucose 133 MG/DL (74-106) Height (Feet): 5 Height (Inches): 1.00 Weight (Pounds): 99 Objective Sp02 EP Interpretation: reviewed, normal General Appearance: no apparent distress, non-verbal ++contracted Head: normocephalic, atraumatic ENT: hearing grossly normal, no angioedema Respiratory: chest non-tender, lungs clear, normal breath sounds,++2l Nc Cardiovascular: no edema, tachycardia Gastrointestinal: normal bowel sounds, non tender, soft, ++gt Rectal: deferred Musculoskeletal: normal inspection Neurologic: alert, motor strength/tone normal, no focal defects Skin: other - See RN skin exam. Lymphatic: no adenopathy Gu: valderrama+++ Nate Begum MD Jul 14, 2020 06:53
[2020-07-14 07:05] LABS: APPEARANCE,URINE CLOUDY; BILIRUBIN, URINE NEGATIVE (NEGATIVE); COLOR,URINE PALE YELLOW; GLUCOSE, URINE (UA) NEGATIVE (NEGATIVE); KETONES,URINE NEGATIVE (NEGATIVE); LEUKOCYTE ESTERASE ,URINE 2+ (NEGATIVE); NITRITE,URINE NEGATIVE (NEGATIVE); PH,URINE 6.5 (4.5-8.0); PROTEIN,URINE 2+ (NEGATIVE); UROBILINOGEN,URINE NORMAL MG/DL (0.0-1.0)
[2020-07-14 07:33] LABS: BASOPHILS % (AUTO) 0.3 % (0.0-2.0); EOSINOPHILS % (AUTO) 0.9 % (0.0-3.0); HEMATOCRIT 26.6 % (37.0-47.0); HEMOGLOBIN 8.8 G/DL (12.0-16.0); LYMPHOCYTES % (AUTO) 11.8 % (20.0-45.0); MEAN CORPUSCULAR VOLUME 90 FL (80-99); MONOCYTES % (AUTO) 7.2 % (1.0-10.0); NEUTROPHILS % (AUTO) 79.9 % (45.0-75.0); PLATELET COUNT 279 K/UL (150-450); RED BLOOD COUNT 2.95 M/UL (4.20-5.40); RED CELL DISTRIBUTION WIDTH 15.2 % (11.6-14.8); WHITE BLOOD COUNT 10.3 K/UL (4.8-10.8)
[2020-07-14 07:42] LABS: ANION GAP 4 mmol/L (5-15); BLOOD UREA NITROGEN 17 mg/dL (7-18); CALCIUM 8.5 MG/DL (8.5-10.1); CARBON DIOXIDE 29 MMOL/L (21-32); CHLORIDE 104 MMOL/L (98-107); CREATININE 0.4 MG/DL (0.55-1.30); POTASSIUM 3.8 MMOL/L (3.5-5.1); SODIUM 137 MMOL/L (136-145)
[2020-07-14 08:00] VITALS: BP 105/58
--- NOTE | 2020-07-14 08:42 | Infectious Diseases Prog Note ---
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 but with fever at SNF [employer] Lymphopenia Hypoxic w/ NC O2 requirement, r/o PNA 07/08 BCx NTD UA+, UCx <10k GNR COVID rapid test neg, PCR neg CXR: No acute process +RLE DVT on US 07/09 Elevated LFTs 67 / 120 Abd TTP 06/29 Abd US wnl Acute hep panel neg Cr 0.5 HIV screen neg PMH: DM CHF Dementia SNF resident Plan: Cont Zosyn #5/7-10 given persistent leukocytosis Tx of RLE DVT per primary, on lovenox BID Consider CTA chest to r/o PE, could be cause of persistent leukocytosis, hypoxia Trend WBC, improving 07/10 SP CTX #2 Monitor CBC/CMP Monitor temp curve, hemodynamics Monitor resp status D/w RN Thank you for this consult. [facility] will continue to follow. Subjective Allergies: Coded Allergies: ERYTHROMYCIN BASE (Verified Allergy, Unknown, 11/12/16) AF WBC down to 10 NAD on 3L NC Objective Last 24 Hour Vital Signs Date Time Temp Pulse Resp B/P (MAP) Pulse Ox O2 Delivery O2 Flow Rate FiO2 07/14/20 04:00 98.0 92 20 98/57 (71) 94 07/14/20 00:00 98.7 94 20 104/56 (72) 96 07/13/20 21:00 Nasal Cannula 3.0 07/13/20 20:00 97.9 88 18 101/54 (70) 99 07/13/20 16:00 98.1 68 20 117/81 (93) 96 07/13/20 12:00 96.7 80 19 110/61 (77) 96 07/13/20 09:00 Nasal Cannula 3.0 Height (Feet): 5 Height (Inches): 1.00 Weight (Pounds): 99 Gen: NAD HEENT: NCAT Pulm: BL chest rise Abd: Non-distended Ext: No c/c/e Skin: No visible rashes Neuro: Awake Laboratory Tests Test 07/13/20 11:54 07/13/20 17:32 07/13/20 20:28 07/14/20 05:00 POC Whole Blood Glucose 121 MG/DL (74-106) H 121 MG/DL (74-106) H 112 MG/DL (74-106) H Urine Color Pale yellow Urine Appearance Cloudy Urine pH 6.5 (4.5-8.0) Urine Specific [place] 1.015 (1.005-1.035) Urine Protein 2+ (NEGATIVE) H Urine Glucose (UA) Negative (NEGATIVE) Urine Ketones Negative (NEGATIVE) Urine Blood 4+ (NEGATIVE) H Urine Nitrite Negative (NEGATIVE) Urine Bilirubin Negative (NEGATIVE) Urine Urobilinogen Normal MG/DL (0.0-1.0) Urine Leukocyte Esterase 2+ (NEGATIVE) H Urine RBC 5-10 /HPF (0 - 2) H Urine WBC 10-15 /HPF (0 - 2) H Urine Squamous Epithelial Cells Occasional /LPF Urine Bacteria Few /HPF (NONE) Urine Yeast Many /HPF (NONE) H Test 07/14/20 06:00 White Blood Count 10.3 K/UL (4.8-10.8) Red Blood Count 2.95 M/UL (4.20-5.40) L Hemoglobin 8.8 G/DL (12.0-16.0) L Hematocrit 26.6 % (37.0-47.0) L Mean Corpuscular Volume 90 FL (80-99) Mean Corpuscular Hemoglobin 30.0 PG (27.0-31.0) Mean Corpuscular Hemoglobin Concent 33.3 G/DL (32.0-36.0) Red Cell Distribution Width 15.2 % (11.6-14.8) H Platelet Count 279 K/UL (150-450) Mean Platelet Volume 7.6 FL (6.5-10.1) Neutrophils (%) (Auto) 79.9 % (45.0-75.0) H Lymphocytes (%) (Auto) 11.8 % (20.0-45.0) L Monocytes (%) (Auto) 7.2 % (1.0-10.0) Eosinophils (%) (Auto) 0.9 % (0.0-3.0) Basophils (%) (Auto) 0.3 % (0.0-2.0) Activated Partial Thromboplast Time Pending Sodium Level 137 MMOL/L (136-145) Potassium Level 3.8 MMOL/L (3.5-5.1) Chloride Level 104 MMOL/L (98-107) Carbon Dioxide Level 29 MMOL/L (21-32) Anion Gap 4 mmol/L (5-15) L Blood Urea Nitrogen 17 mg/dL (7-18) Creatinine 0.4 MG/DL (0.55-1.30) L Estimat Glomerular Filtration Rate > 60 mL/min (>60) Glucose Level 109 MG/DL (74-106) H POC Whole Blood Glucose 133 MG/DL (74-106) H Calcium Level 8.5 MG/DL (8.5-10.1) Current Medications Medications (Trade) Dose Ordered Sig/Alvarado Route PRN Reason Start Time Stop Time Status Last Admin Dose Admin Acetaminophen (Tylenol) 650 mg Q4H PRN ORAL MILD PAIN/TEMP > 101F 07/09/20 02:30 08/08/20 02:29 Ascorbic Acid (Vitamin C) 500 mg DAILY ORAL 07/09/20 09:00 08/08/20 08:59 07/13/20 09:26 Atorvastatin Calcium (Lipitor) 10 mg BEDTIME GT 07/09/20 21:00 10/07/20 20:59 07/13/20 21:07 Bisacodyl (Dulcolax) 10 mg DAILY PRN RECTAL Constipation 07/09/20 02:30 10/07/20 02:29 Clonidine HCl (Catapres Tab) 0.1 mg Q8H PRN GT HYPERTENSION 07/09/20 02:30 10/07/20 02:29 Dextrose (Dextrose 50%) 25 ml Q30M PRN IV Hypoglycemia 07/09/20 02:45 10/07/20 02:44 Dextrose (Dextrose 50%) 50 ml Q30M PRN IV Hypoglycemia 07/09/20 02:45 10/07/20 02:44 Enoxaparin Sodium (Lovenox) 40 mg Q12HR SUBQ 07/13/20 21:00 10/11/20 20:59 07/13/20 21:08 Insulin Aspart (NovoLOG) BEFORE MEALS AND HS SUBQ 07/09/20 06:30 10/07/20 06:29 07/11/20 17:04 Levetiracetam (Keppra) 500 mg Q12HR GT 07/09/20 09:00 08/08/20 08:59 07/13/20 21:06 Midodrine (Pro-Amatine) 10 mg Q8HR ORAL 07/11/20 16:00 10/09/20 15:59 07/14/20 05:56 Multivitamins Therapeutic (Therapeutic Multivitamin) 1 ea DAILY ORAL 07/09/20 09:00 08/08/20 08:59 07/13/20 09:26 Piperacillin Sod/ Tazobactam Sod 3.375 gm/Sodium Chloride 110 ml @ 27.5 mls/hr EVERY 8 HOURS IVPB 07/10/20 10:00 07/15/20 09:59 07/14/20 05:57 Potassium Chloride (K-Dur) 20 meq TWICE A DAY GT 07/10/20 14:00 10/08/20 13:59 07/13/20 17:27 Beth Marsh M.D. Jul 14, 2020 08:42
[2020-07-14] MEDS: levETIRAcetam 500mg/5ml Liquid GT SCH ×2 (09:29→21:28)
[2020-07-14] MEDS: Multivitamin w/Minerals tab ORAL SCH (09:30)
[2020-07-14] MEDS: Ascorbic Acid 500mg tab ORAL SCH (09:30)
[2020-07-14] MEDS: Enoxaparin 40mg Inj SUBQ SCH ×2 (09:31→21:29)
[2020-07-14 12:00] VITALS: BP 107/61
--- NOTE | 2020-07-14 15:05 | Surgery Progress Note ---
Surgery Progress Note Subjective Symptoms: improved, tolerating diet, passing flatus Objective Last 24 Hour Vital Signs Date Time Temp Pulse Resp B/P (MAP) Pulse Ox O2 Delivery O2 Flow Rate FiO2 07/14/20 12:00 98.1 84 20 107/61 (76) 98 07/14/20 09:00 Nasal Cannula 3.0 07/14/20 08:00 97.2 84 20 105/58 (74) 98 07/14/20 04:00 98.0 92 20 98/57 (71) 94 07/14/20 00:00 98.7 94 20 104/56 (72) 96 07/13/20 21:00 Nasal Cannula 3.0 07/13/20 20:00 97.9 88 18 101/54 (70) 99 07/13/20 16:00 98.1 68 20 117/81 (93) 96 I&O Intake and Output 07/13/20 07/14/20 19:00 07:00 Intake Total 770 ml 127.5 ml Output Total 1200 ml Balance -430 ml 127.5 ml IV Total 220 ml 27.5 ml Tube Feeding 550 ml 100 ml Output Urine Total 1200 ml # Voids 3 Dressing: saturated Cardiovascular: RSR Respiratory: decreased breath sounds Abdomen: soft, non-tender, present bowel sounds, non-distended Extremities: no tenderness, no cyanosis Laboratory Tests Test 07/13/20 17:32 07/13/20 20:28 07/14/20 05:00 07/14/20 06:00 POC Whole Blood Glucose 121 MG/DL (74-106) H 112 MG/DL (74-106) H 133 MG/DL (74-106) H Urine Color Pale yellow Urine Appearance Cloudy Urine pH 6.5 (4.5-8.0) Urine Specific [place] 1.015 (1.005-1.035) Urine Protein 2+ (NEGATIVE) H Urine Glucose (UA) Negative (NEGATIVE) Urine Ketones Negative (NEGATIVE) Urine Blood 4+ (NEGATIVE) H Urine Nitrite Negative (NEGATIVE) Urine Bilirubin Negative (NEGATIVE) Urine Urobilinogen Normal MG/DL (0.0-1.0) Urine Leukocyte Esterase 2+ (NEGATIVE) H Urine RBC 5-10 /HPF (0 - 2) H Urine WBC 10-15 /HPF (0 - 2) H Urine Squamous Epithelial Cells Occasional /LPF Urine Bacteria Few /HPF (NONE) Urine Yeast Many /HPF (NONE) H White Blood Count 10.3 K/UL (4.8-10.8) Red Blood Count 2.95 M/UL (4.20-5.40) L Hemoglobin 8.8 G/DL (12.0-16.0) L Hematocrit 26.6 % (37.0-47.0) L Mean Corpuscular Volume 90 FL (80-99) Mean Corpuscular Hemoglobin 30.0 PG (27.0-31.0) Mean Corpuscular Hemoglobin Concent 33.3 G/DL (32.0-36.0) Red Cell Distribution Width 15.2 % (11.6-14.8) H Platelet Count 279 K/UL (150-450) Mean Platelet Volume 7.6 FL (6.5-10.1) Neutrophils (%) (Auto) 79.9 % (45.0-75.0) H Lymphocytes (%) (Auto) 11.8 % (20.0-45.0) L Monocytes (%) (Auto) 7.2 % (1.0-10.0) Eosinophils (%) (Auto) 0.9 % (0.0-3.0) Basophils (%) (Auto) 0.3 % (0.0-2.0) Activated Partial Thromboplast Time 26 SEC (23-33) Sodium Level 137 MMOL/L (136-145) Potassium Level 3.8 MMOL/L (3.5-5.1) Chloride Level 104 MMOL/L (98-107) Carbon Dioxide Level 29 MMOL/L (21-32) Anion Gap 4 mmol/L (5-15) L Blood Urea Nitrogen 17 mg/dL (7-18) Creatinine 0.4 MG/DL (0.55-1.30) L Estimat Glomerular Filtration Rate > 60 mL/min (>60) Glucose Level 109 MG/DL (74-106) H Calcium Level 8.5 MG/DL (8.5-10.1) Plan Problems: (1) Fever (2) Leukocytosis Assessment & Plan: on abx id input appreciated wounds not infected nutrition (3) Tachycardia (4) Decubitus skin ulcer (5) Pyelonephritis (6) Malnutrition (7) Sepsis Assessment & Plan: ill appearing poor skin turgor leukocytosis anemia h/h low trending prbc prn Needs based on underweight, DM 35.5kg 30-40 kcals/kg [id number] total kcals 1.25-2 g protein/kg 44-71 g total protein 25-35ml/kcal mL/kg [phone] total fluid mLs NUTRITION DIAGNOSIS: Swallowing difficulty R/T dysphagia as evidenced by pt is Gtube dependent. ENTERAL NUTRITION RECOMMENDATIONS: Glucerna 1.2 @50ml x24 hrs to provide 1200ml, 1440 kcal, 72g pro, 966ml free H2O - As able rec carb control formula for h/o DM. - Start @30ml/hr for 6 hrs, advance as tolerated 10ml/hr q4-6 hrs to goal. - Flush per MD/ HOB over 30 degrees ADDITIONAL RECOMMENDATIONS: - Per SNF: 5'3" and 78lbs/35.45kg. - Check lytes daily, replete as needed - A1c for eval of glycemic control - Wound care: advanced per RN, f/up with WC RN. Add LINA BID w/ GT, Vit C 250mg BID (2) Decubitus skin ulcer Assessment & Plan: This is an emaciated pt whom presented on admission with Multiple Pressure Injuries. Unstageable Pressure Injury Sacrum (L)11cm x (W)10.5cm. Base of wound is 90% necrotic, surrounding 10% moist, erythematous borders. Edges adherent to base of wound. No odor or exudate noted. Unstageable Pressure Injury L trochanter(L)3.5cm x (W)5.5cm. Base of wound is 95% necrotic, 5% surrounding borders arleen. Edges adherent to base of wound. No odor or exudate noted.Periwound is pale. Non-Blanchable erythema without induration L Ischium. Non-Blanchable erythema without induration bony prominences of L Hip/L Trochant er/L Ischial tuberosity. DTPI L Heel(L)2.5cmx(W)2cm.Base of Pressure Injury is fluctuant, Maroon in colour with surrounding non-blanchable erythema. Non-Blanchable erythema without induration L Hallux (L)1cm x (W)2cm. DTPI R Heel (L)6cm x (W)8cm.Base of Pressure Injury is fluctuant and maroon in colour. Edges are adherent to base of Pressure Injury. Unstageable Pressure Injury dorsal R 1st metatarsal(L)0.8cm x (W)0.6cm.Base of wound is 100% necrotic with marginal erythema along borders . Edges adherent to base of wound.. Non-Blanchable erythema without induration distal/lateral R foot (L)1.5cm x (W)1.5cm. Non-Blanchable erythema without induration R Hallux. Tx.Plan: Cleanse Sacral wound with Saline. Apply Therahoney. Apply Moisture Barrier Paste periwound. Cover with Optifoam drsg. Change every 3 days and prn. Cleanse L Trochanteric wound with Saline.Apply Therhaoney.Apply Moisture Barrier paste Periwound. Cover with Optifoam drsg. Change every 3 days and prn. Apply Moisture Barrier Paste to R and L ischium. Cover each site with Optifoam drsg. Change every 3 days and prn. Cover R hip /R Trochanter with Optifoam drsgs. Change every 7 days and prn. Apply Cavilon Skin Barrier to R heel , R 1st metatarsal,R hallux, Distal /Lateral R foot. Cover each Pressure Injury with Optifoam drsg. Change every 7 days and prn. Apply Cavilon Skin Barrier o L Heel , L Hallux, Distal lateral L Foot . Cover each Pressure Injury with Optifoam drsg. Change every 7 days and prn. Reposition at least every 2hours or as tolerated. Off-load heels with Pillow. APM/SOLOMON Mattress Overlay. (3) UTI (urinary tract infection) (4) Pneumonia (5) Sepsis Assessment & Plan: leukocytosis lactic acidosis malnutrition underweight bmi 13 micro noted on abx as per ID cont abx wounds unlikely etiology will follow with local care and evaluation to ensure improving thank you There is a slight degree of image degradation due to motion artifact. The right upper lobe is largely clear following may be some interstitial septal thickening in the apex. The right middle lobe is clear. The right lower lobe demonstrates some atelectasis at the right lung base. There is also a focal 6 mm nodular opacity, image 50 series 5. There is a vague mosaic attenuation pattern. Left upper lobe demonstrates scattered areas of mosaic attenuation superiorly image 10 of series 5 demonstrates a 3 mm left upper lobe nodule.. Irregular consolidative opacities are seen in the inferior left upper lobe. More extensive consolidation in a patchy and irregular distribution are seen in the left lower lobe. There is a small left pleural effusion. The heart is upper limits of normal in size. The ascending thoracic aorta is mildly ectatic. No mediastinal or hilar mass or adenopathy. Unremarkable. No axillary or chest wall mass or adenopathy demonstrated. The bones are unremarkable except for minimal degenerative spondylosis changes and slight anterior bowing of the sternum. The included lung bases demonstrate a gastrostomy which appears well-positioned. There is trace ascites Impression: Opacities in the left lower lobe and also to a lesser extent in the left upper lobe and minimally in the right lower lobe. Appearance is consistent with consolidation rather than mass. Most likely represents pneumonia, appearance nonspecific as regards etiology. Patchy pulmonary edema also possible, among other possibilities Small left pleural effusion Bilateral small nodules, as described. No further follow-up necessary if there are no risk factors for lung carcinoma. There are significant risk factors, then short interval follow-up CT in 6-12 months is recommended Trace ascites (8) UTI (urinary tract infection) (9) Pneumonia (10) PEG (percutaneous endoscopic gastrostomy) adjustment/replacement/removal Chao Ovalle Jul 14, 2020 15:05
[2020-07-14 16:00] VITALS: BP 112/61
--- NOTE | 2020-07-14 18:20 | General Progress Note ---
Subjective Constitutional: Reports: no symptoms HEENT: Reports: no symptoms Cardiovascular: Reports: no symptoms Respiratory: Reports: no symptoms Gastrointestinal/Abdominal: Reports: no symptoms Genitourinary: Reports: no symptoms Neurologic/Psychiatric: Reports: no symptoms Endocrine: Reports: no symptoms Hematologic/Lymphatic: Reports: no symptoms Allergies: Coded Allergies: ERYTHROMYCIN BASE (Verified Allergy, Unknown, 11/12/16) Objective Last 24 Hour Vital Signs Date Time Temp Pulse Resp B/P (MAP) Pulse Ox O2 Delivery O2 Flow Rate FiO2 07/14/20 16:00 98.0 75 20 112/61 (78) 98 07/14/20 12:00 98.1 84 20 107/61 (76) 98 07/14/20 09:00 Nasal Cannula 3.0 07/14/20 08:00 97.2 84 20 105/58 (74) 98 07/14/20 04:00 98.0 92 20 98/57 (71) 94 07/14/20 00:00 98.7 94 20 104/56 (72) 96 07/13/20 21:00 Nasal Cannula 3.0 07/13/20 20:00 97.9 88 18 101/54 (70) 99 Intake and Output 07/13/20 07/14/20 19:00 07:00 Intake Total 770 ml 127.5 ml Output Total 1200 ml Balance -430 ml 127.5 ml IV Total 220 ml 27.5 ml Tube Feeding 550 ml 100 ml Output Urine Total 1200 ml # Voids 3 Laboratory Tests 07/13/20 20:28: POC Whole Blood Glucose 112H 07/14/20 05:00: Urine Color Pale yellow, Urine Appearance Cloudy, Urine pH 6.5, Urine Specific [place] 1.015, Urine Protein 2+H, Urine Glucose (UA) Negative, Urine Ketones Negative, Urine Blood 4+H, Urine Nitrite Negative, Urine Bilirubin Negative, Urine Urobilinogen Normal, Urine Leukocyte Esterase 2+H, Urine RBC 5-10H, Urine WBC 10-15H, Urine Squamous Epithelial Cells Occasional, Urine Bacteria Few, Urine Yeast ManyH 07/14/20 06:00: POC Whole Blood Glucose 133H, White Blood Count 10.3, Red Blood Count 2.95L, Hemoglobin 8.8L, Hematocrit 26.6L, Mean Corpuscular Volume 90, Mean Corpuscular Hemoglobin 30.0, Mean Corpuscular Hemoglobin Concent 33.3, Red Cell Distribution Width 15.2H, Platelet Count 279, Mean Platelet Volume 7.6, Neutrophils (%) (Auto) 79.9H, Lymphocytes (%) (Auto) 11.8L, Monocytes (%) (Auto) 7.2, Eosinophils (%) (Auto) 0.9, Basophils (%) (Auto) 0.3, Activated Partial Thromboplast Time 26, Sodium Level 137, Potassium Level 3.8, Chloride Level 104, Carbon Dioxide Level 29, Anion Gap 4L, Blood Urea Nitrogen 17, Creatinine 0.4L, Estimat Glomerular Filtration Rate > 60, Glucose Level 109H, Calcium Level 8.5 Height (Feet): 5 Height (Inches): 1.00 Weight (Pounds): 99 General Appearance: no apparent distress, lethargic EENT: normal ENT inspection Neck: supple Cardiovascular: normal rate, regular rhythm, no gallop/murmur, no JVD Respiratory/Chest: lungs clear, normal breath sounds, no respiratory distress, no accessory muscle use Abdomen: normal bowel sounds, non tender, soft, no organomegaly, no mass Extremities: non-tender Neurologic: unresponsive, aphasia Skin: warm/dry Assessment/Plan Status Narrative Patient needs awake and alert afebrile hemodynamically stable and lethargic physical exam is unremarkable oratory tests are now contained no leukocytosis with normal BUN/creatinine and electrolytes x-ray was not done analysis contains now only 10-15 WBC per high-power field continue with Zosyn to complete the treatment with laboratory tests and chest x-ray will be done in a.m. Gale Mays MD, MD Jul 14, 2020 18:20
[2020-07-14 20:00] VITALS: BP 103/62
[2020-07-15] VITALS: BP 105/54
[2020-07-15 04:00] VITALS: BP 94/48
[2020-07-15] MEDS: Piperacillin/Tazobactam 3.375 GM in NS 110 ML IVPB SCH ×3 (05:40→23:12)
[2020-07-15] MEDS: Midodrine 10mg tab ORAL SCH ×3 (05:41→21:45)
[2020-07-15] MEDS: NovoLOG Insulin Flexpen SUBQ SCH ×4 (06:18→21:00)
--- NOTE | 2020-07-15 06:33 | Hematology/Onc Progress Note ---
Assessment/Plan Assessment/Plan Assessment and Recs # Sepsis due to Pyelonephritis --> septic protocol started --> is on ivfs --> abx as per ID ceftriaxone-->zosyn --> imaging noted --> urine culture sens and spec # Right lower extremity common femoral deep venous thrombosis --> anticoagulation has been started-->lovenox sq --> does have Elevated ddimer # Anemia due to chronic disease --> panel as needed -> hgb 10.7-->8.8 --> transfuse prn # Leukocytosis due to infection --> per ID abx # Fever with flu like symptoms --> r/o covid19 --> due to above # HL --> lipitor and asa # Tachycardia --> ivfs should improve # Dvt ppx lovenox sq Subjective Allergies: Coded Allergies: ERYTHROMYCIN BASE (Verified Allergy, Unknown, 11/12/16) All Systems: reviewed and negative except above Subjective 07/13 with valderrama, gt, nc, no bleeding, on abx 07/14 labs ordered, valderrama, nc, no new events, cbc pending 07/15 nv, no new changes, no bleeding, valderrama and nc, labs reviewed Objective Objective Current Medications Medications (Trade) Dose Ordered Sig/Alvarado Route PRN Reason Start Time Stop Time Status Last Admin Dose Admin Acetaminophen (Tylenol) 650 mg Q4H PRN ORAL MILD PAIN/TEMP > 101F 07/09/20 02:30 08/08/20 02:29 Ascorbic Acid (Vitamin C) 500 mg DAILY ORAL 07/09/20 09:00 08/08/20 08:59 07/14/20 09:30 Atorvastatin Calcium (Lipitor) 10 mg BEDTIME GT 07/09/20 21:00 10/07/20 20:59 07/14/20 21:29 Bisacodyl (Dulcolax) 10 mg DAILY PRN RECTAL Constipation 07/09/20 02:30 10/07/20 02:29 Clonidine HCl (Catapres Tab) 0.1 mg Q8H PRN GT HYPERTENSION 07/09/20 02:30 10/07/20 02:29 Dextrose (Dextrose 50%) 25 ml Q30M PRN IV Hypoglycemia 07/09/20 02:45 10/07/20 02:44 Dextrose (Dextrose 50%) 50 ml Q30M PRN IV Hypoglycemia 07/09/20 02:45 10/07/20 02:44 Enoxaparin Sodium (Lovenox) 40 mg Q12HR SUBQ 07/13/20 21:00 10/11/20 20:59 07/14/20 21:29 Insulin Aspart (NovoLOG) BEFORE MEALS AND HS SUBQ 07/09/20 06:30 10/07/20 06:29 07/11/20 17:04 Levetiracetam (Keppra) 500 mg Q12HR GT 07/09/20 09:00 08/08/20 08:59 07/14/20 21:28 Midodrine (Pro-Amatine) 10 mg Q8HR ORAL 07/11/20 16:00 10/09/20 15:59 07/15/20 05:41 Multivitamins Therapeutic (Therapeutic Multivitamin) 1 ea DAILY ORAL 07/09/20 09:00 08/08/20 08:59 07/14/20 09:30 Piperacillin Sod/ Tazobactam Sod 3.375 gm/Sodium Chloride 110 ml @ 27.5 mls/hr EVERY 8 HOURS IVPB 07/10/20 10:00 07/16/20 09:59 07/15/20 05:40 Potassium Chloride (K-Dur) 20 meq TWICE A DAY GT 07/10/20 14:00 10/08/20 13:59 07/14/20 17:25 Last 24 Hour Vital Signs Date Time Temp Pulse Resp B/P (MAP) Pulse Ox O2 Delivery O2 Flow Rate FiO2 07/15/20 04:00 98.8 76 20 94/48 (63) 94 07/15/20 00:00 98.6 74 20 105/54 (71) 95 07/14/20 21:00 Nasal Cannula 3.0 07/14/20 20:00 98.5 87 20 103/62 (76) 96 07/14/20 16:00 98.0 75 20 112/61 (78) 98 07/14/20 12:00 98.1 84 20 107/61 (76) 98 07/14/20 09:00 Nasal Cannula 3.0 07/14/20 08:00 97.2 84 20 105/58 (74) 98 07/14/20 04:00 98.0 92 20 98/57 (71) 94 07/14/20 00:00 98.7 94 20 104/56 (72) 96 07/13/20 21:00 Nasal Cannula 3.0 07/13/20 20:00 97.9 88 18 101/54 (70) 99 07/13/20 16:00 98.1 68 20 117/81 (93) 96 07/13/20 12:00 96.7 80 19 110/61 (77) 96 07/13/20 09:00 Nasal Cannula 3.0 07/13/20 08:00 98.1 81 21 109/74 (86) 96 Intake and Output 07/14/20 07/15/20 19:00 07:00 Intake Total 1092.5 ml 860.0 ml Output Total 750 ml 1600 ml Balance 342.5 ml -740.0 ml Intake Free Water 300 ml 200 ml IV Total 192.5 ml 110.0 ml Tube Feeding 600 ml 550 ml Output Urine Total 750 ml 1600 ml # Voids 1 Labs Test 07/12/20 11:17 07/12/20 15:15 07/12/20 15:57 07/12/20 20:09 White Blood Count 14.0 K/UL (4.8-10.8) Red Blood Count 3.00 M/UL (4.20-5.40) Hemoglobin 9.1 G/DL (12.0-16.0) Hematocrit 27.3 % (37.0-47.0) Mean Corpuscular Volume 91 FL (80-99) Mean Corpuscular Hemoglobin 30.2 PG (27.0-31.0) Mean Corpuscular Hemoglobin Concent 33.2 G/DL (32.0-36.0) Red Cell Distribution Width 14.5 % (11.6-14.8) Platelet Count 198 K/UL (150-450) Mean Platelet Volume 10.6 FL (6.5-10.1) Neutrophils (%) (Auto) 83.6 % (45.0-75.0) Lymphocytes (%) (Auto) 11.0 % (20.0-45.0) Monocytes (%) (Auto) 3.7 % (1.0-10.0) Eosinophils (%) (Auto) 1.1 % (0.0-3.0) Basophils (%) (Auto) 0.5 % (0.0-2.0) POC Whole Blood Glucose 111 MG/DL (74-106) Test 07/13/20 05:00 07/13/20 05:16 07/13/20 11:54 07/13/20 17:32 Sodium Level 138 MMOL/L (136-145) Potassium Level 3.7 MMOL/L (3.5-5.1) Chloride Level 105 MMOL/L (98-107) Carbon Dioxide Level 28 MMOL/L (21-32) Anion Gap 5 mmol/L (5-15) Blood Urea Nitrogen 14 mg/dL (7-18) Creatinine 0.3 MG/DL (0.55-1.30) Estimat Glomerular Filtration Rate > 60 mL/min (>60) Glucose Level 117 MG/DL (74-106) Calcium Level 8.3 MG/DL (8.5-10.1) Phosphorus Level 2.6 MG/DL (2.5-4.9) Magnesium Level 2.1 MG/DL (1.8-2.4) Total Bilirubin 0.3 MG/DL (0.2-1.0) Aspartate Amino Transf (AST/SGOT) 22 U/L (15-37) Alanine Aminotransferase (ALT/SGPT) 34 U/L (12-78) Alkaline Phosphatase 64 U/L (46-116) Total Protein 6.4 G/DL (6.4-8.2) Albumin 1.8 G/DL (3.4-5.0) Globulin 4.6 g/dL Albumin/Globulin Ratio 0.4 (1.0-2.7) POC Whole Blood Glucose 127 MG/DL (74-106) 121 MG/DL (74-106) 121 MG/DL (74-106) Test 07/13/20 20:28 07/14/20 05:00 07/14/20 06:00 07/14/20 20:25 POC Whole Blood Glucose 112 MG/DL (74-106) 133 MG/DL (74-106) 92 MG/DL (74-106) Urine Color Pale yellow Urine Appearance Cloudy Urine pH 6.5 (4.5-8.0) Urine Specific [place] 1.015 (1.005-1.035) Urine Protein 2+ (NEGATIVE) Urine Glucose (UA) Negative (NEGATIVE) Urine Ketones Negative (NEGATIVE) Urine Blood 4+ (NEGATIVE) Urine Nitrite Negative (NEGATIVE) Urine Bilirubin Negative (NEGATIVE) Urine Urobilinogen Normal MG/DL (0.0-1.0) Urine Leukocyte Esterase 2+ (NEGATIVE) Urine RBC 5-10 /HPF (0 - 2) Urine WBC 10-15 /HPF (0 - 2) Urine Squamous Epithelial Cells Occasional /LPF Urine Bacteria Few /HPF (NONE) Urine Yeast Many /HPF (NONE) White Blood Count 10.3 K/UL (4.8-10.8) Red Blood Count 2.95 M/UL (4.20-5.40) Hemoglobin 8.8 G/DL (12.0-16.0) Hematocrit 26.6 % (37.0-47.0) Mean Corpuscular Volume 90 FL (80-99) Mean Corpuscular Hemoglobin 30.0 PG (27.0-31.0) Mean Corpuscular Hemoglobin Concent 33.3 G/DL (32.0-36.0) Red Cell Distribution Width 15.2 % (11.6-14.8) Platelet Count 279 K/UL (150-450) Mean Platelet Volume 7.6 FL (6.5-10.1) Neutrophils (%) (Auto) 79.9 % (45.0-75.0) Lymphocytes (%) (Auto) 11.8 % (20.0-45.0) Monocytes (%) (Auto) 7.2 % (1.0-10.0) Eosinophils (%) (Auto) 0.9 % (0.0-3.0) Basophils (%) (Auto) 0.3 % (0.0-2.0) Activated Partial Thromboplast Time 26 SEC (23-33) Sodium Level 137 MMOL/L (136-145) Potassium Level 3.8 MMOL/L (3.5-5.1) Chloride Level 104 MMOL/L (98-107) Carbon Dioxide Level 29 MMOL/L (21-32) Anion Gap 4 mmol/L (5-15) Blood Urea Nitrogen 17 mg/dL (7-18) Creatinine 0.4 MG/DL (0.55-1.30) Estimat Glomerular Filtration Rate > 60 mL/min (>60) Glucose Level 109 MG/DL (74-106) Calcium Level 8.5 MG/DL (8.5-10.1) Height (Feet): 5 Height (Inches): 1.00 Weight (Pounds): 99 Objective Sp02 EP Interpretation: reviewed, normal General Appearance: no apparent distress, non-verbal ++contracted Head: normocephalic, atraumatic ENT: hearing grossly normal, no angioedema Respiratory: chest non-tender, lungs clear, normal breath sounds,++2l Nc Cardiovascular: no edema, tachycardia Gastrointestinal: normal bowel sounds, non tender, soft, ++gt Rectal: deferred Musculoskeletal: normal inspection Neurologic: alert, motor strength/tone normal, no focal defects Skin: other - See RN skin exam. Lymphatic: no adenopathy Gu: valderrama+++ Nate Begum MD Jul 15, 2020 06:33
[2020-07-15 07:48] LABS: BASOPHILS % (AUTO) 0.8 % (0.0-2.0); EOSINOPHILS % (AUTO) 1.3 % (0.0-3.0); HEMATOCRIT 28.3 % (37.0-47.0); HEMOGLOBIN 9.3 G/DL (12.0-16.0); LYMPHOCYTES % (AUTO) 13.9 % (20.0-45.0); MEAN CORPUSCULAR VOLUME 91 FL (80-99); MONOCYTES % (AUTO) 7.3 % (1.0-10.0); NEUTROPHILS % (AUTO) 76.7 % (45.0-75.0); PLATELET COUNT 227 K/UL (150-450); RED CELL DISTRIBUTION WIDTH 15.1 % (11.6-14.8); WHITE BLOOD COUNT 8.6 K/UL (4.8-10.8)
[2020-07-15 08:00] VITALS: BP 102/52
[2020-07-15] MEDS: Ascorbic Acid 500mg tab ORAL SCH (08:44)
[2020-07-15] MEDS: Multivitamin w/Minerals tab ORAL SCH (08:44)
[2020-07-15] MEDS: levETIRAcetam 500mg/5ml Liquid GT SCH ×2 (08:44→21:46)
--- NOTE | 2020-07-15 08:44 | Infectious Diseases Prog Note ---
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 but with fever at SNF [employer] Lymphopenia Hypoxic w/ NC O2 requirement, r/o PNA 07/08 BCx NTD UA+, UCx <10k GNR COVID rapid test neg, PCR neg CXR: No acute process +RLE DVT on US 07/09 Elevated LFTs 67 / 120 Abd TTP 06/29 Abd US wnl Acute hep panel neg Cr 0.5 HIV screen neg PMH: DM CHF Dementia SNF resident Plan: Cont Zosyn #6/7 given persistent leukocytosis OK to d/c to SNF to complete rest of course of abx, last day of abx is tomorrow 07/16 Tx of RLE DVT per primary, on lovenox BID Consider CTA chest to r/o PE, could be cause of persistent leukocytosis, hypoxia Trend WBC, improving 07/10 SP CTX #2 Monitor CBC/CMP Monitor temp curve, hemodynamics Monitor resp status D/w RN Thank you for this consult. [facility] will continue to follow. Subjective Allergies: Coded Allergies: ERYTHROMYCIN BASE (Verified Allergy, Unknown, 11/12/16) AF WBC down to 8 NAD on 3L NC Objective Last 24 Hour Vital Signs Date Time Temp Pulse Resp B/P (MAP) Pulse Ox O2 Delivery O2 Flow Rate FiO2 07/15/20 04:00 98.8 76 20 94/48 (63) 94 07/15/20 00:00 98.6 74 20 105/54 (71) 95 07/14/20 21:00 Nasal Cannula 3.0 07/14/20 20:00 98.5 87 20 103/62 (76) 96 07/14/20 16:00 98.0 75 20 112/61 (78) 98 07/14/20 12:00 98.1 84 20 107/61 (76) 98 07/14/20 09:00 Nasal Cannula 3.0 Height (Feet): 5 Height (Inches): 1.00 Weight (Pounds): 99 Gen: NAD HEENT: NCAT Pulm: BL chest rise Abd: Non-distended Ext: No c/c/e Skin: No visible rashes Neuro: Awake Laboratory Tests Test 07/14/20 20:25 07/15/20 05:15 POC Whole Blood Glucose 92 MG/DL (74-106) White Blood Count 8.6 K/UL (4.8-10.8) Red Blood Count 3.10 M/UL (4.20-5.40) L Hemoglobin 9.3 G/DL (12.0-16.0) L Hematocrit 28.3 % (37.0-47.0) L Mean Corpuscular Volume 91 FL (80-99) Mean Corpuscular Hemoglobin 30.0 PG (27.0-31.0) Mean Corpuscular Hemoglobin Concent 32.9 G/DL (32.0-36.0) Red Cell Distribution Width 15.1 % (11.6-14.8) H Platelet Count 227 K/UL (150-450) Mean Platelet Volume 7.5 FL (6.5-10.1) Neutrophils (%) (Auto) 76.7 % (45.0-75.0) H Lymphocytes (%) (Auto) 13.9 % (20.0-45.0) L Monocytes (%) (Auto) 7.3 % (1.0-10.0) Eosinophils (%) (Auto) 1.3 % (0.0-3.0) Basophils (%) (Auto) 0.8 % (0.0-2.0) Sodium Level Pending Potassium Level Pending Chloride Level Pending Carbon Dioxide Level Pending Blood Urea Nitrogen Pending Creatinine Pending Estimat Glomerular Filtration Rate Pending Glucose Level Pending Calcium Level Pending Total Bilirubin Pending Aspartate Amino Transf (AST/SGOT) Pending Alanine Aminotransferase (ALT/SGPT) Pending Alkaline Phosphatase Pending Total Protein Pending Albumin Pending Globulin Pending Current Medications Medications (Trade) Dose Ordered Sig/Alvarado Route PRN Reason Start Time Stop Time Status Last Admin Dose Admin Acetaminophen (Tylenol) 650 mg Q4H PRN ORAL MILD PAIN/TEMP > 101F 07/09/20 02:30 08/08/20 02:29 Ascorbic Acid (Vitamin C) 500 mg DAILY ORAL 07/09/20 09:00 08/08/20 08:59 07/14/20 09:30 Atorvastatin Calcium (Lipitor) 10 mg BEDTIME GT 07/09/20 21:00 10/07/20 20:59 07/14/20 21:29 Bisacodyl (Dulcolax) 10 mg DAILY PRN RECTAL Constipation 07/09/20 02:30 10/07/20 02:29 Clonidine HCl (Catapres Tab) 0.1 mg Q8H PRN GT HYPERTENSION 07/09/20 02:30 10/07/20 02:29 Dextrose (Dextrose 50%) 25 ml Q30M PRN IV Hypoglycemia 07/09/20 02:45 10/07/20 02:44 Dextrose (Dextrose 50%) 50 ml Q30M PRN IV Hypoglycemia 07/09/20 02:45 10/07/20 02:44 Enoxaparin Sodium (Lovenox) 40 mg Q12HR SUBQ 07/13/20 21:00 10/11/20 20:59 07/14/20 21:29 Insulin Aspart (NovoLOG) BEFORE MEALS AND HS SUBQ 07/09/20 06:30 10/07/20 06:29 07/11/20 17:04 Levetiracetam (Keppra) 500 mg Q12HR GT 07/09/20 09:00 08/08/20 08:59 07/14/20 21:28 Midodrine (Pro-Amatine) 10 mg Q8HR ORAL 07/11/20 16:00 10/09/20 15:59 07/15/20 05:41 Multivitamins Therapeutic (Therapeutic Multivitamin) 1 ea DAILY ORAL 07/09/20 09:00 08/08/20 08:59 07/14/20 09:30 Piperacillin Sod/ Tazobactam Sod 3.375 gm/Sodium Chloride 110 ml @ 27.5 mls/hr EVERY 8 HOURS IVPB 07/10/20 10:00 07/16/20 09:59 07/15/20 05:40 Potassium Chloride (K-Dur) 20 meq TWICE A DAY GT 07/10/20 14:00 10/08/20 13:59 07/14/20 17:25 Beth Marsh M.D. Jul 15, 2020 08:44
[2020-07-15] MEDS: Enoxaparin 40mg Inj SUBQ SCH ×2 (08:47→21:59)
[2020-07-15 09:23] LABS: ALANINE AMINOTRANSFERASE 30 U/L (12-78); ALBUMIN 1.8 G/DL (3.4-5.0); ALBUMIN/GLOBULIN RATIO 0.4 (1.0-2.7); ALKALINE PHOSPHATASE 66 U/L (46-116); ANION GAP 7 mmol/L (5-15); ASPARTATE AMINO TRANSFERASE 24 U/L (15-37); BILIRUBIN,TOTAL 0.2 MG/DL (0.2-1.0); BLOOD UREA NITROGEN 18 mg/dL (7-18); CALCIUM 8.8 MG/DL (8.5-10.1); CARBON DIOXIDE 27 MMOL/L (21-32); CHLORIDE 102 MMOL/L (98-107); CREATININE 0.4 MG/DL (0.55-1.30); POTASSIUM 4.3 MMOL/L (3.5-5.1); SODIUM 136 MMOL/L (136-145)
[2020-07-15 12:00] VITALS: BP 103/61
--- NOTE | 2020-07-15 12:43 | Nephrology Progress Note ---
Assessment/Plan Problem List: (1) Dehydration (2) Electrolyte imbalance (3) UTI (urinary tract infection) (4) Sepsis (5) Malnutrition (6) Pyelonephritis (7) Leukocytosis Assessment Electrolyte imbalance, hypernatremia, hypokalemia Pyelonephritis, leukocytosis Fever, tachycardia Plan July 15: Labs reviewed. Renal parameters stable. Blood pressure is stable. July 14: No CHEM panel done today. Stable from renal standpoint of view. July 13: CHEM panel reviewed. Renal parameters stable. Continue per consultants. Midodrine for BP support on board. July 12: No chemistry panel drawn today. Medication list reviewed. Continue to monitor electrolytes and renal parameters. Continue per consultants. July 11: Labs reviewed. Renal parameters stable. Electrolytes within normal limit. Will stop IV fluid. Will start midodrine for low blood pressure. July 10: Serum sodium improved. Low potassium and low phosphorus addressed. IV down to 50 cc an hour. Stable from renal standpoint of view. Continue to monitor electrolytes and chemistries. Previously: Change IV to D5W Potassium supplement Anemia work-up Albumin bolus Monitor electrolytes and renal parameters Per orders Subjective ROS Limited/Unobtainable: No Constitutional: Reports: malaise Objective Objective Last 24 Hour Vital Signs Date Time Temp Pulse Resp B/P (MAP) Pulse Ox O2 Delivery O2 Flow Rate FiO2 07/15/20 12:00 100.4 90 20 103/61 (75) 96 07/15/20 09:00 Nasal Cannula 3.0 07/15/20 08:00 98.2 78 20 102/52 (69) 96 07/15/20 04:00 98.8 76 20 94/48 (63) 94 07/15/20 00:00 98.6 74 20 105/54 (71) 95 07/14/20 21:00 Nasal Cannula 3.0 07/14/20 20:00 98.5 87 20 103/62 (76) 96 07/14/20 16:00 98.0 75 20 112/61 (78) 98 Intake and Output 07/14/20 07/15/20 19:00 07:00 Intake Total 1092.5 ml 1087.5 ml Output Total 750 ml 1600 ml Balance 342.5 ml -512.5 ml Intake Free Water 300 ml 350 ml IV Total 192.5 ml 137.5 ml Tube Feeding 600 ml 600 ml Output Urine Total 750 ml 1600 ml # Voids 1 Current Medications Medications (Trade) Dose Ordered Sig/Alvarado Route PRN Reason Start Time Stop Time Status Last Admin Dose Admin Acetaminophen (Tylenol) 650 mg Q4H PRN ORAL MILD PAIN/TEMP > 101F 07/09/20 02:30 08/08/20 02:29 Ascorbic Acid (Vitamin C) 500 mg DAILY ORAL 07/09/20 09:00 08/08/20 08:59 07/15/20 08:44 Atorvastatin Calcium (Lipitor) 10 mg BEDTIME GT 07/09/20 21:00 10/07/20 20:59 07/14/20 21:29 Bisacodyl (Dulcolax) 10 mg DAILY PRN RECTAL Constipation 07/09/20 02:30 10/07/20 02:29 Clonidine HCl (Catapres Tab) 0.1 mg Q8H PRN GT HYPERTENSION 07/09/20 02:30 10/07/20 02:29 Dextrose (Dextrose 50%) 25 ml Q30M PRN IV Hypoglycemia 07/09/20 02:45 10/07/20 02:44 Dextrose (Dextrose 50%) 50 ml Q30M PRN IV Hypoglycemia 07/09/20 02:45 10/07/20 02:44 Enoxaparin Sodium (Lovenox) 40 mg Q12HR SUBQ 07/13/20 21:00 10/11/20 20:59 07/15/20 08:47 Insulin Aspart (NovoLOG) BEFORE MEALS AND HS SUBQ 07/09/20 06:30 10/07/20 06:29 07/11/20 17:04 Levetiracetam (Keppra) 500 mg Q12HR GT 07/09/20 09:00 08/08/20 08:59 07/15/20 08:44 Midodrine (Pro-Amatine) 10 mg Q8HR ORAL 07/11/20 16:00 10/09/20 15:59 07/15/20 05:41 Multivitamins Therapeutic (Therapeutic Multivitamin) 1 ea DAILY ORAL 07/09/20 09:00 08/08/20 08:59 07/15/20 08:44 Piperacillin Sod/ Tazobactam Sod 3.375 gm/Sodium Chloride 110 ml @ 27.5 mls/hr EVERY 8 HOURS IVPB 07/10/20 10:00 07/16/20 09:59 07/15/20 05:40 Potassium Chloride (K-Dur) 20 meq TWICE A DAY GT 07/10/20 14:00 10/08/20 13:59 07/15/20 08:44 Laboratory Tests 07/14/20 20:25: POC Whole Blood Glucose 92 07/15/20 05:15: White Blood Count 8.6, Red Blood Count 3.10L, Hemoglobin 9.3L, Hematocrit 28.3L, Mean Corpuscular Volume 91, Mean Corpuscular Hemoglobin 30.0, Mean Corpuscular Hemoglobin Concent 32.9, Red Cell Distribution Width 15.1H, Platelet Count 227, Mean Platelet Volume 7.5, Neutrophils (%) (Auto) 76.7H, Lymphocytes (%) (Auto) 1 3.9L, Monocytes (%) (Auto) 7.3, Eosinophils (%) (Auto) 1.3, Basophils (%) (Auto) 0.8, Sodium Level 136, Potassium Level 4.3, Chloride Level 102, Carbon Dioxide Level 27, Anion Gap 7, Blood Urea Nitrogen 18, Creatinine 0.4L, Estimat Glomerular Filtration Rate > 60, Glucose Level 105, Calcium Level 8.8, Total Bilirubin 0.2, Aspartate Amino Transf (AST/SGOT) 24, Alanine Aminotransferase (ALT/SGPT) 30, Alkaline Phosphatase 66, Total Protein 6.8, Albumin 1.8L, Globulin 5.0, Albumin/Globulin Ratio 0.4L 07/15/20 06:16: POC Whole Blood Glucose 122H Height (Feet): 5 Height (Inches): 1.00 Weight (Pounds): 99 General Appearance: no apparent distress Cardiovascular: normal rate Respiratory/Chest: decreased breath sounds Abdomen: soft Gabriele Honeycutt MD Jul 15, 2020 12:43
--- NOTE | 2020-07-15 12:44 | Surgery Progress Note ---
Surgery Progress Note Subjective Additional Comments Patient seen and examined bedside. No acute events. Resting comfortably. Labs noted. Exam stable. No complaints at this time. Imaging reviewed micro revi ewed afebrile hemodynamic stable Objective Last 24 Hour Vital Signs Date Time Temp Pulse Resp B/P (MAP) Pulse Ox O2 Delivery O2 Flow Rate FiO2 07/15/20 12:00 100.4 90 20 103/61 (75) 96 07/15/20 09:00 Nasal Cannula 3.0 07/15/20 08:00 98.2 78 20 102/52 (69) 96 07/15/20 04:00 98.8 76 20 94/48 (63) 94 07/15/20 00:00 98.6 74 20 105/54 (71) 95 07/14/20 21:00 Nasal Cannula 3.0 07/14/20 20:00 98.5 87 20 103/62 (76) 96 07/14/20 16:00 98.0 75 20 112/61 (78) 98 I&O Intake and Output 07/14/20 07/15/20 19:00 07:00 Intake Total 1092.5 ml 1087.5 ml Output Total 750 ml 1600 ml Balance 342.5 ml -512.5 ml Intake Free Water 300 ml 350 ml IV Total 192.5 ml 137.5 ml Tube Feeding 600 ml 600 ml Output Urine Total 750 ml 1600 ml # Voids 1 Dressing: saturated Cardiovascular: RSR Respiratory: decreased breath sounds Abdomen: soft, non-tender, present bowel sounds, non-distended Extremities: no tenderness, no cyanosis Laboratory Tests Test 07/14/20 20:25 07/15/20 05:15 07/15/20 06:16 POC Whole Blood Glucose 92 MG/DL (74-106) 122 MG/DL (74-106) H White Blood Count 8.6 K/UL (4.8-10.8) Red Blood Count 3.10 M/UL (4.20-5.40) L Hemoglobin 9.3 G/DL (12.0-16.0) L Hematocrit 28.3 % (37.0-47.0) L Mean Corpuscular Volume 91 FL (80-99) Mean Corpuscular Hemoglobin 30.0 PG (27.0-31.0) Mean Corpuscular Hemoglobin Concent 32.9 G/DL (32.0-36.0) Red Cell Distribution Width 15.1 % (11.6-14.8) H Platelet Count 227 K/UL (150-450) Mean Platelet Volume 7.5 FL (6.5-10.1) Neutrophils (%) (Auto) 76.7 % (45.0-75.0) H Lymphocytes (%) (Auto) 13.9 % (20.0-45.0) L Monocytes (%) (Auto) 7.3 % (1.0-10.0) Eosinophils (%) (Auto) 1.3 % (0.0-3.0) Basophils (%) (Auto) 0.8 % (0.0-2.0) Sodium Level 136 MMOL/L (136-145) Potassium Level 4.3 MMOL/L (3.5-5.1) Chloride Level 102 MMOL/L (98-107) Carbon Dioxide Level 27 MMOL/L (21-32) Anion Gap 7 mmol/L (5-15) Blood Urea Nitrogen 18 mg/dL (7-18) Creatinine 0.4 MG/DL (0.55-1.30) L Estimat Glomerular Filtration Rate > 60 mL/min (>60) Glucose Level 105 MG/DL (74-106) Calcium Level 8.8 MG/DL (8.5-10.1) Total Bilirubin 0.2 MG/DL (0.2-1.0) Aspartate Amino Transf (AST/SGOT) 24 U/L (15-37) Alanine Aminotransferase (ALT/SGPT) 30 U/L (12-78) Alkaline Phosphatase 66 U/L (46-116) Total Protein 6.8 G/DL (6.4-8.2) Albumin 1.8 G/DL (3.4-5.0) L Globulin 5.0 g/dL Albumin/Globulin Ratio 0.4 (1.0-2.7) L Plan Problems: (1) Fever (2) Leukocytosis Assessment & Plan: on abx id input appreciated wounds not infected nutrition (3) Tachycardia (4) Decubitus skin ulcer (5) Pyelonephritis (6) Malnutrition (7) Sepsis Assessment & Plan: ill appearing poor skin turgor leukocytosis anemia h/h low trending prbc prn Needs based on underweight, DM 35.5kg 30-40 kcals/kg [id number] total kcals 1.25-2 g protein/kg 44-71 g total protein 25-35ml/kcal mL/kg [phone] total fluid mLs NUTRITION DIAGNOSIS: Swallowing difficulty R/T dysphagia as evidenced by pt is Gtube dependent. ENTERAL NUTRITION RECOMMENDATIONS: Glucerna 1.2 @50ml x24 hrs to provide 1200ml, 1440 kcal, 72g pro, 966ml free H2O - As able rec carb control formula for h/o DM. - Start @30ml/hr for 6 hrs, advance as tolerated 10ml/hr q4-6 hrs to goal. - Flush per MD/ HOB over 30 degrees ADDITIONAL RECOMMENDATIONS: - Per SNF: 5'3" and 78lbs/35.45kg. - Check lytes daily, replete as needed - A1c for eval of glycemic control - Wound care: advanced per RN, f/up with WC RN. Add LINA BID w/ GT, Vit C 250mg BID (2) Decubitus skin ulcer Assessment & Plan: This is an emaciated pt whom presented on admission with Multiple Pressure Injuries. Unstageable Pressure Injury Sacrum (L)11cm x (W)10.5cm. Base of wound is 90% necrotic, surrounding 10% moist, erythematous borders. Edges adherent to base of wound. No odor or exudate noted. Unstageable Pressure Injury L trochanter(L)3.5cm x (W)5.5cm. Base of wound is 95% necrotic, 5% surrounding borders arleen. Edges adherent to base of wound. No odor or exudate noted.Periwound is pale. Non-Blanchable erythema without induration L Ischium. Non-Blanchable erythema without induration bony prominences of L Hip/L Trochanter/L Ischial tuberosity. DTPI L Heel(L)2.5cmx(W)2cm.Base of Pressure Injury is fluctuant, Maroon in colour with surrounding non-blanchable erythema. Non-Blanchable erythema without induration L Hallux (L)1cm x (W)2cm. DTPI R Heel (L)6cm x (W)8cm.Base of Pressure Injury is fluctuant and maroon in colour. Edges are adherent to base of Pressure Injury. Unstageable Pressure Injury dorsal R 1st metatarsal(L)0.8cm x (W)0.6cm.Base of wound is 100% necrotic with marginal erythema along borders . Edges adherent to base of wound.. Non-Blanchable erythema without induration distal/lateral R foot (L)1.5cm x (W)1.5cm. Non-Blanchable erythema without induration R Hallux. Tx.Plan: Cleanse Sacral wound with Saline. Apply Therahoney. Apply Moisture Barrier Paste periwound. Cover with Optifoam drsg. Change every 3 days and prn. Cleanse L Trochanteric wound with Saline.Apply Therhaoney.Apply Moisture Barrier paste Periwound. Cover with Optifoam drsg. Change every 3 days and prn. Apply Moisture Barrier Paste to R and L ischium. Cover each site with Optifoam drsg. Change every 3 days and prn. Cover R hip /R Trochanter with Optifoam drsgs. Change every 7 days and prn. Apply Cavilon Skin Barrier to R heel , R 1st metatarsal,R hallux, Distal /Lateral R foot. Cover each Pressure Injury with Optifoam drsg. Change every 7 days and prn. Apply Cavilon Skin Barrier o L Heel , L Hallux, Distal lateral L Foot . Cover each Pressure Injury with Optifoam drsg. Change every 7 days and prn. Reposition at least every 2hours or as tolerated. Off-load heels with Pillow. APM/SOLOMON Mattress Overlay. (3) UTI (urinary tract infection) (4) Pneumonia (5) Sepsis Assessment & Plan: leukocytosis lactic acidosis malnutrition underweight bmi 13 micro noted on abx as per ID cont abx wounds unlikely etiology will follow with local care and evaluation to ensure improving thank you There is a slight degree of image degradation due to motion artifact. The right upper lobe is largely clear following may be some interstitial septal thickening in the apex. The right middle lobe is clear. The right lower lobe demonstrates some atelectasis at the right lung base. There is also a focal 6 mm nodular opacity, image 50 series 5. There is a vague mosaic attenuation pattern. Left upper lobe demonstrates scattered areas of mosaic attenuation superiorly image 10 of series 5 demonstrates a 3 mm left upper lobe nodule.. Irregular consolidative opacities are seen in the inferior left upper lobe. More extensive consolidation in a patchy and irregular distribution are seen in the left lower lobe. There is a small left pleural effusion. The heart is upper limits of normal in size. The ascending thoracic aorta is mildly ectatic. No mediastinal or hilar mass or adenopathy. Unremarkable. No axillary or chest wall mass or adenopathy demonstrated. The bones are unremarkable except for minimal degenerative spondylosis changes and slight anterior bowing of the sternum. The included lung bases demonstrate a gastrostomy which appears well-positioned. There is trace ascites Impression: Opacities in the left lower lobe and also to a lesser extent in the left upper lobe and minimally in the right lower lobe. Appearance is consistent with consolidation rather than mass. Most likely represents pneumonia, appearance nonspecific as regards etiology. Patchy pulmonary edema also possible, among other possibilities Small left pleural effusion Bilateral small nodules, as described. No further follow-up necessary if there are no risk factors for lung carcinoma. There are significant risk factors, then short interval follow-up CT in 6-12 months is recommended Trace ascites (8) UTI (urinary tract infection) (9) Pneumonia (10) PEG (percutaneous endoscopic gastrostomy) adjustment/replacement/removal Chao Ovalle Jul 15, 2020 12:44
--- NOTE | 2020-07-15 13:43 | Diagnostic Imaging Report ---
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 The lungs demonstrate mild central bronchial wall thickening, but no definite acute infiltrate, effusion, or congestion. The heart size is normal. Impression: No definite acute process
[2020-07-15 16:00] VITALS: BP 102/56
--- NOTE | 2020-07-15 19:47 | Cardiology Report ---
APPROVED REPORT EKG Measurement Heart [id number] FL [id number] <Conclusion> Sinus tachycardia Possible Left atrial enlargement Nonspecific ST and T wave abnormality Abnormal ECG
[2020-07-15 20:00] VITALS: BP 100/95
--- NOTE | 2020-07-15 21:09 | General Progress Note ---
Subjective Constitutional: Reports: no symptoms HEENT: Reports: no symptoms Cardiovascular: Reports: no symptoms Respiratory: Reports: no symptoms Gastrointestinal/Abdominal: Reports: no symptoms Genitourinary: Reports: no symptoms Neurologic/Psychiatric: Reports: no symptoms Endocrine: Reports: no symptoms Hematologic/Lymphatic: Reports: no symptoms Allergies: Coded Allergies: ERYTHROMYCIN BASE (Verified Allergy, Unknown, 11/12/16) Objective Last 24 Hour Vital Signs Date Time Temp Pulse Resp B/P (MAP) Pulse Ox O2 Delivery O2 Flow Rate FiO2 07/15/20 16:00 98.1 74 20 102/56 (71) 96 07/15/20 14:54 99.0 07/15/20 12:00 100.4 90 20 103/61 (75) 96 07/15/20 09:00 Nasal Cannula 3.0 07/15/20 08:00 98.2 78 20 102/52 (69) 96 07/15/20 04:00 98.8 76 20 94/48 (63) 94 07/15/20 00:00 98.6 74 20 105/54 (71) 95 Intake and Output 07/14/20 07/15/20 19:00 07:00 Intake Total 1092.5 ml 1087.5 ml Output Total 750 ml 1600 ml Balance 342.5 ml -512.5 ml Intake Free Water 300 ml 350 ml IV Total 192.5 ml 137.5 ml Tube Feeding 600 ml 600 ml Output Urine Total 750 ml 1600 ml # Voids 1 Laboratory Tests 07/15/20 05:15: White Blood Count 8.6, Red Blood Count 3.10L, Hemoglobin 9.3L, Hematocrit 28.3L, Mean Corpuscular Volume 91, Mean Corpuscular Hemoglobin 30.0, Mean Corpuscular Hemoglobin Concent 32.9, Red Cell Distribution Width 15.1H, Platelet Count 227, Mean Platelet Volume 7.5, Neutrophils (%) (Auto) 76.7H, Lymphocytes (%) (Auto) 13.9L, Monocytes (%) (Auto) 7.3, Eosinophils (%) (Auto) 1.3, Basophils (%) (Auto) 0.8, Sodium Level 136, Potassium Level 4.3, Chloride Level 102, Carbon Dioxide Level 27, Anion Gap 7, Blood Urea Nitrogen 18, Creatinine 0.4L, Estimat Glomerular Filtration Rate > 60, Glucose Level 105, Calcium Level 8.8, Total Bilirubin 0.2, Aspartate Amino Transf (AST/SGOT) 24, Alanine Aminotransferase (ALT/SGPT) 30, Alkaline Phosphatase 66, Total Protein 6.8, Albumin 1.8L, Globulin 5.0, Albumin/Globulin Ratio 0.4L 07/15/20 06:16: POC Whole Blood Glucose 122H Height (Feet): 5 Height (Inches): 1.00 Weight (Pounds): 99 General Appearance: no apparent distress, lethargic EENT: normal ENT inspection Neck: supple Cardiovascular: normal rate, regular rhythm, no gallop/murmur, no JVD Respiratory/Chest: lungs clear, normal breath sounds, no respiratory distress, no accessory muscle use Abdomen: non tender, soft, no organomegaly, no mass Extremities: non-tender Neurologic: unresponsive, aphasia Assessment/Plan Status Narrative Patient is afebrile hemodynamically stable eyes are closed she does respond to tactile and audio stimuli but does not open her eyes she is now afebrile without leukocytosis normal BMP and clear chest x-ray her urine culture revealed yeast she continues to be on piperacillin tazobactam IV repeat laboratory tests will be done in a.m. Gale Leija MD, MD Jul 15, 2020 21:09
[2020-07-16] VITALS: BP 100/51
[2020-07-16 04:00] VITALS: BP 102/60
[2020-07-16] MEDS: NovoLOG Insulin Flexpen SUBQ SCH ×4 (06:14→20:55)
[2020-07-16] MEDS: Midodrine 10mg tab ORAL SCH ×3 (06:17→21:01)
--- NOTE | 2020-07-16 06:31 | Hematology/Onc Progress Note ---
Assessment/Plan Assessment/Plan Assessment and Recs # Sepsis due to Pyelonephritis --> septic protocol started --> is on ivfs --> abx as per ID ceftriaxone-->zosyn --> imaging noted --> urine culture sens and spec as needed # Right lower extremity common femoral deep venous thrombosis --> anticoagulation has been started-->lovenox sq --> does have Elevated ddimer # Anemia due to chronic disease --> panel as needed -> hgb 10.7-->8.8-->9.3 --> transfuse prn # Leukocytosis due to infection --> per ID abx # Fever with flu like symptoms --> r/o covid19 --> due to above # HL --> lipitor and asa # Tachycardia --> ivfs should improve # Dvt ppx lovenox sq Appreciate consultation and dw RN Subjective Respiratory: Denies: no symptoms, cough, shortness of breath, SOB with excertion, SOB at rest, sputum, wheezing, other Gastrointestinal/Abdominal: Denies: no symptoms, abdomen distended, abdominal pain, black stools, tarry stools, blood in stool, constipated, diarrhea, difficulty swallowing, nausea, poor appetite, poor fluid intake, rectal bleeding, vomiting, other Allergies: Coded Allergies: ERYTHROMYCIN BASE (Verified Allergy, Unknown, 11/12/16) All Systems: reviewed and negative except above Subjective 07/13 with valderrama, gt, nc, no bleeding, on abx 07/14 labs ordered, valderrama, nc, no new events, cbc pending 07/15 nv, no new changes, no bleeding, valderrama and nc, labs reviewed 07/16 nv, no bleeding, meds reviewed, no new changes, no bleeding Objective Objective Current Medications Medications (Trade) Dose Ordered Sig/Alvarado Route PRN Reason Start Time Stop Time Status Last Admin Dose Admin Acetaminophen (Tylenol) 650 mg Q4H PRN ORAL MILD PAIN/TEMP > 101F 07/09/20 02:30 08/08/20 02:29 07/15/20 14:24 Ascorbic Acid (Vitamin C) 500 mg DAILY ORAL 07/09/20 09:00 08/08/20 08:59 07/15/20 08:44 Atorvastatin Calcium (Lipitor) 10 mg BEDTIME GT 07/09/20 21:00 10/07/20 20:59 07/15/20 21:45 Bisacodyl (Dulcolax) 10 mg DAILY PRN RECTAL Constipation 07/09/20 02:30 10/07/20 02:29 Clonidine HCl (Catapres Tab) 0.1 mg Q8H PRN GT HYPERTENSION 07/09/20 02:30 10/07/20 02:29 Dextrose (Dextrose 50%) 25 ml Q30M PRN IV Hypoglycemia 07/09/20 02:45 10/07/20 02:44 Dextrose (Dextrose 50%) 50 ml Q30M PRN IV Hypoglycemia 07/09/20 02:45 10/07/20 02:44 Enoxaparin Sodium (Lovenox) 40 mg Q12HR SUBQ 07/13/20 21:00 10/11/20 20:59 07/15/20 21:59 Insulin Aspart (NovoLOG) BEFORE MEALS AND HS SUBQ 07/09/20 06:30 10/07/20 06:29 07/11/20 17:04 Levetiracetam (Keppra) 500 mg Q12HR GT 07/09/20 09:00 08/08/20 08:59 07/15/20 21:46 Midodrine (Pro-Amatine) 10 mg Q8HR ORAL 07/11/20 16:00 10/09/20 15:59 07/16/20 06:17 Multivitamins Therapeutic (Therapeutic Multivitamin) 1 ea DAILY ORAL 07/09/20 09:00 08/08/20 08:59 07/15/20 08:44 Piperacillin Sod/ Tazobactam Sod 3.375 gm/Sodium Chloride 110 ml @ 27.5 mls/hr EVERY 8 HOURS IVPB 07/10/20 10:00 07/16/20 09:59 07/15/20 23:12 Potassium Chloride (K-Dur) 20 meq TWICE A DAY GT 07/10/20 14:00 10/08/20 13:59 07/15/20 17:12 Last 24 Hour Vital Signs Date Time Temp Pulse Resp B/P (MAP) Pulse Ox O2 Delivery O2 Flow Rate FiO2 07/16/20 00:00 98.9 78 20 100/51 (67) 97 07/15/20 21:00 Nasal Cannula 3.0 07/15/20 20:00 98.9 76 19 100/95 (97) 96 07/15/20 16:00 98.1 74 20 102/56 (71) 96 07/15/20 14:54 99.0 07/15/20 12:00 100.4 90 20 103/61 (75) 96 07/15/20 09:00 Nasal Cannula 3.0 07/15/20 08:00 98.2 78 20 102/52 (69) 96 07/15/20 04:00 98.8 76 20 94/48 (63) 94 07/15/20 00:00 98.6 74 20 105/54 (71) 95 07/14/20 21:00 Nasal Cannula 3.0 07/14/20 20:00 98.5 87 20 103/62 (76) 96 07/14/20 16:00 98.0 75 20 112/61 (78) 98 07/14/20 12:00 98.1 84 20 107/61 (76) 98 07/14/20 09:00 Nasal Cannula 3.0 07/14/20 08:00 97.2 84 20 105/58 (74) 98 Intake and Output 07/15/20 07/16/20 19:00 07:00 Intake Total 1092.5 ml Output Total 1100 ml 600 ml Balance -7.5 ml -600 ml Intake Free Water 300 ml IV Total 192.5 ml Tube Feeding 600 ml Output Urine Total 1100 ml 600 ml # Voids 1 Labs Test 07/13/20 11:54 07/13/20 17:32 07/13/20 20:28 07/14/20 05:00 POC Whole Blood Glucose 121 MG/DL (74-106) 121 MG/DL (74-106) 112 MG/DL (74-106) Urine Color Pale yellow Urine Appearance Cloudy Urine pH 6.5 (4.5-8.0) Urine Specific [place] 1.015 (1.005-1.035) Urine Protein 2+ (NEGATIVE) Urine Glucose (UA) Negative (NEGATIVE) Urine Ketones Negative (NEGATIVE) Urine Blood 4+ (NEGATIVE) Urine Nitrite Negative (NEGATIVE) Urine Bilirubin Negative (NEGATIVE) Urine Urobilinogen Normal MG/DL (0.0-1.0) Urine Leukocyte Esterase 2+ (NEGATIVE) Urine RBC 5-10 /HPF (0 - 2) Urine WBC 10-15 /HPF (0 - 2) Urine Squamous Epithelial Cells Occasional /LPF Urine Bacteria Few /HPF (NONE) Urine Yeast Many /HPF (NONE) Test 07/14/20 06:00 07/14/20 20:25 07/15/20 05:15 07/15/20 06:16 White Blood Count 10.3 K/UL (4.8-10.8) 8.6 K/UL (4.8-10.8) Red Blood Count 2.95 M/UL (4.20-5.40) 3.10 M/UL (4.20-5.40) Hemoglobin 8.8 G/DL (12.0-16.0) 9.3 G/DL (12.0-16.0) Hematocrit 26.6 % (37.0-47.0) 28.3 % (37.0-47.0) Mean Corpuscular Volume 90 FL (80-99) 91 FL (80-99) Mean Corpuscular Hemoglobin 30.0 PG (27.0-31.0) 30.0 PG (27.0-31.0) Mean Corpuscular Hemoglobin Concent 33.3 G/DL (32.0-36.0) 32.9 G/DL (32.0-36.0) Red Cell Distribution Width 15.2 % (11.6-14.8) 15.1 % (11.6-14.8) Platelet Count 279 K/UL (150-450) 227 K/UL (150-450) Mean Platelet Volume 7.6 FL (6.5-10.1) 7.5 FL (6.5-10.1) Neutrophils (%) (Auto) 79.9 % (45.0-75.0) 76.7 % (45.0-75.0) Lymphocytes (%) (Auto) 11.8 % (20.0-45.0) 13.9 % (20.0-45.0) Monocytes (%) (Auto) 7.2 % (1.0-10.0) 7.3 % (1.0-10.0) Eosinophils (%) (Auto) 0.9 % (0.0-3.0) 1.3 % (0.0-3.0) Basophils (%) (Auto) 0.3 % (0.0-2.0) 0.8 % (0.0-2.0) Activated Partial Thromboplast Time 26 SEC (23-33) Sodium Level 137 MMOL/L (136-145) 136 MMOL/L (136-145) Potassium Level 3.8 MMOL/L (3.5-5.1) 4.3 MMOL/L (3.5-5.1) Chloride Level 104 MMOL/L (98-107) 102 MMOL/L (98-107) Carbon Dioxide Level 29 MMOL/L (21-32) 27 MMOL/L (21-32) Anion Gap 4 mmol/L (5-15) 7 mmol/L (5-15) Blood Urea Nitrogen 17 mg/dL (7-18) 18 mg/dL (7-18) Creatinine 0.4 MG/DL (0.55-1.30) 0.4 MG/DL (0.55-1.30) Estimat Glomerular Filtration Rate > 60 mL/min (>60) > 60 mL/min (>60) Glucose Level 109 MG/DL (74-106) 105 MG/DL (74-106) POC Whole Blood Glucose 133 MG/DL (74-106) 92 MG/DL (74-106) 122 MG/DL (74-106) Calcium Level 8.5 MG/DL (8.5-10.1) 8.8 MG/DL (8.5-10.1) Total Bilirubin 0.2 MG/DL (0.2-1.0) Aspartate Amino Transf (AST/SGOT) 24 U/L (15-37) Alanine Aminotransferase (ALT/SGPT) 30 U/L (12-78) Alkaline Phosphatase 66 U/L (46-116) Total Protein 6.8 G/DL (6.4-8.2) Albumin 1.8 G/DL (3.4-5.0) Globulin 5.0 g/dL Albumin/Globulin Ratio 0.4 (1.0-2.7) Test 07/16/20 05:00 Height (Feet): 5 Height (Inches): 1.00 Weight (Pounds): 99 Objective Sp02 EP Interpretation: reviewed, normal General Appearance: no apparent distress, non-verbal ++contracted Head: normocephalic, atraumatic ENT: hearing grossly normal, no angioedema Respiratory: chest non-tender, lungs clear, normal breath sounds,++2l Nc Cardiovascular: no edema, tachycardia Gastrointestinal: normal bowel sounds, non tender, soft, ++gt Rectal: deferred Musculoskeletal: normal inspection Neurologic: alert, motor strength/tone normal, no focal defects Skin: other - See RN skin exam. Lymphatic: no adenopathy Gu: valderrama+++ Nate Begum MD Jul 16, 2020 06:31
[2020-07-16 06:44] LABS: BASOPHILS % (AUTO) 0.5 % (0.0-2.0); HEMATOCRIT 29.4 % (37.0-47.0); HEMOGLOBIN 9.5 G/DL (12.0-16.0); LYMPHOCYTES % (AUTO) 16.4 % (20.0-45.0); MEAN CORPUSCULAR VOLUME 91 FL (80-99); MONOCYTES % (AUTO) 7.1 % (1.0-10.0); NEUTROPHILS % (AUTO) 75.1 % (45.0-75.0); PLATELET COUNT 298 K/UL (150-450); RED BLOOD COUNT 3.23 M/UL (4.20-5.40); RED CELL DISTRIBUTION WIDTH 15.1 % (11.6-14.8); WHITE BLOOD COUNT 9.5 K/UL (4.8-10.8)
[2020-07-16] MEDS: Piperacillin/Tazobactam 3.375 GM in NS 110 ML IVPB SCH (07:01)
[2020-07-16 07:27] LABS: ANION GAP 5 mmol/L (5-15); BLOOD UREA NITROGEN 18 mg/dL (7-18); CARBON DIOXIDE 29 MMOL/L (21-32); CHLORIDE 103 MMOL/L (98-107); CREATININE 0.4 MG/DL (0.55-1.30); POTASSIUM 4.2 MMOL/L (3.5-5.1); SODIUM 137 MMOL/L (136-145)
[2020-07-16 08:00] VITALS: BP 97/50
[2020-07-16] MEDS: Ascorbic Acid 500mg tab ORAL SCH (08:36)
[2020-07-16] MEDS: levETIRAcetam 500mg/5ml Liquid GT SCH ×2 (08:36→21:01)
[2020-07-16] MEDS: Multivitamin w/Minerals tab ORAL SCH (08:36)
[2020-07-16] MEDS: Enoxaparin 40mg Inj SUBQ SCH ×2 (08:37→21:02)
--- NOTE | 2020-07-16 09:05 | Infectious Diseases Prog Note ---
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 Lymphopenia Hypoxic w/ NC O2 requirement, r/o PNA 07/08 BCx NTD UA+, UCx <10k GNR COVID rapid test neg, PCR neg CXR: No acute process 07/14 UCx +yeast (colonizer) +RLE DVT on US 07/09 Elevated LFTs 67 / 120 Abd TTP 06/29 Abd US wnl Acute hep panel neg Cr 0.5 HIV screen neg PMH: DM CHF Dementia SNF resident Plan: Cont Zosyn #7/7 given persistent leukocytosis - stop abx after doses today OK to d/c to SNF from ID standpoint after completes abx today No indication to treat yeast in UCx, most likely colonizer Tx of RLE DVT per primary, on lovenox BID Consider CTA chest to r/o PE, could be cause of persistent leukocytosis, hypoxia Trend temp curve Trend WBC, improving 07/10 SP CTX #2 Monitor CBC/CMP Monitor temp curve, hemodynamics Monitor resp status D/w RN Thank you for this consult. [facility] will continue to follow. Subjective Allergies: Coded Allergies: ERYTHROMYCIN BASE (Verified Allergy, Unknown, 11/12/16) Tmax 100.4 WBC stable at 9 NAD on NC Objective Last 24 Hour Vital Signs Date Time Temp Pulse Resp B/P (MAP) Pulse Ox O2 Delivery O2 Flow Rate FiO2 07/16/20 04:00 98.9 84 20 102/60 (74) 95 07/16/20 00:00 98.9 78 20 100/51 (67) 97 07/15/20 21:00 Nasal Cannula 3.0 07/15/20 20:00 98.9 76 19 100/95 (97) 96 07/15/20 16:00 98.1 74 20 102/56 (71) 96 07/15/20 14:54 99.0 07/15/20 12:00 100.4 90 20 103/61 (75) 96 Height (Feet): 5 Height (Inches): 1.00 Weight (Pounds): 99 Gen: NAD HEENT: NCAT Pulm: BL chest rise Abd: Non-distended Ext: No c/c/e Skin: No visible rashes Neuro: Awake Microbiology Date/Time Source Procedure Growth Status 07/14/20 05:00 Urine,Clean Catch Urine Culture - Preliminary YEAST Resulted Laboratory Tests Test 07/16/20 05:00 White Blood Count 9.5 K/UL (4.8-10.8) Red Blood Count 3.23 M/UL (4.20-5.40) L Hemoglobin 9.5 G/DL (12.0-16.0) L Hematocrit 29.4 % (37.0-47.0) L Mean Corpuscular Volume 91 FL (80-99) Mean Corpuscular Hemoglobin 29.3 PG (27.0-31.0) Mean Corpuscular Hemoglobin Concent 32.2 G/DL (32.0-36.0) Red Cell Distribution Width 15.1 % (11.6-14.8) H Platelet Count 298 K/UL (150-450) Mean Platelet Volume 6.5 FL (6.5-10.1) Neutrophils (%) (Auto) 75.1 % (45.0-75.0) H Lymphocytes (%) (Auto) 16.4 % (20.0-45.0) L Monocytes (%) (Auto) 7.1 % (1.0-10.0) Eosinophils (%) (Auto) 1.0 % (0.0-3.0) Basophils (%) (Auto) 0.5 % (0.0-2.0) Sodium Level 137 MMOL/L (136-145) Potassium Level 4.2 MMOL/L (3.5-5.1) Chloride Level 103 MMOL/L (98-107) Carbon Dioxide Level 29 MMOL/L (21-32) Anion Gap 5 mmol/L (5-15) Blood Urea Nitrogen 18 mg/dL (7-18) Creatinine 0.4 MG/DL (0.55-1.30) L Estimat Glomerular Filtration Rate > 60 mL/min (>60) Glucose Level 103 MG/DL (74-106) Calcium Level 9.0 MG/DL (8.5-10.1) Current Medications Medications (Trade) Dose Ordered Sig/Alvarado Route PRN Reason Start Time Stop Time Status Last Admin Dose Admin Acetaminophen (Tylenol) 650 mg Q4H PRN ORAL MILD PAIN/TEMP > 101F 07/09/20 02:30 08/08/20 02:29 07/15/20 14:24 Ascorbic Acid (Vitamin C) 500 mg DAILY ORAL 07/09/20 09:00 08/08/20 08:59 07/16/20 08:36 Atorvastatin Calcium (Lipitor) 10 mg BEDTIME GT 07/09/20 21:00 10/07/20 20:59 07/15/20 21:45 Bisacodyl (Dulcolax) 10 mg DAILY PRN RECTAL Constipation 07/09/20 02:30 10/07/20 02:29 Clonidine HCl (Catapres Tab) 0.1 mg Q8H PRN GT HYPERTENSION 07/09/20 02:30 10/07/20 02:29 Dextrose (Dextrose 50%) 25 ml Q30M PRN IV Hypoglycemia 07/09/20 02:45 10/07/20 02:44 Dextrose (Dextrose 50%) 50 ml Q30M PRN IV Hypoglycemia 07/09/20 02:45 10/07/20 02:44 Enoxaparin Sodium (Lovenox) 40 mg Q12HR SUBQ 07/13/20 21:00 10/11/20 20:59 07/16/20 08:37 Insulin Aspart (NovoLOG) BEFORE MEALS AND HS SUBQ 07/09/20 06:30 10/07/20 06:29 07/11/20 17:04 Levetiracetam (Keppra) 500 mg Q12HR GT 07/09/20 09:00 08/08/20 08:59 07/16/20 08:36 Midodrine (Pro-Amatine) 10 mg Q8HR ORAL 07/11/20 16:00 10/09/20 15:59 07/16/20 06:17 Multivitamins Therapeutic (Therapeutic Multivitamin) 1 ea DAILY ORAL 07/09/20 09:00 08/08/20 08:59 07/16/20 08:36 Piperacillin Sod/ Tazobactam Sod 3.375 gm/Sodium Chloride 110 ml @ 27.5 mls/hr EVERY 8 HOURS IVPB 07/10/20 10:00 07/16/20 09:59 07/16/20 07:01 Potassium Chloride (K-Dur) 20 meq TWICE A DAY GT 07/10/20 14:00 10/08/20 13:59 07/16/20 08:36 Beth Marsh M.D. Jul 16, 2020 09:05
[2020-07-16 12:00] VITALS: BP 102/56
--- NOTE | 2020-07-16 12:11 | Surgery Progress Note ---
Surgery Progress Note Subjective Additional Comments comfortable on mattress labs noted no n/v/f/c Objective Last 24 Hour Vital Signs Date Time Temp Pulse Resp B/P (MAP) Pulse Ox O2 Delivery O2 Flow Rate FiO2 07/16/20 09:00 Nasal Cannula 3.0 07/16/20 08:00 97.3 88 20 97/50 (66) 99 07/16/20 04:00 98.9 84 20 102/60 (74) 95 07/16/20 00:00 98.9 78 20 100/51 (67) 97 07/15/20 21:00 Nasal Cannula 3.0 07/15/20 20:00 98.9 76 19 100/95 (97) 96 07/15/20 16:00 98.1 74 20 102/56 (71) 96 07/15/20 14:54 99.0 I&O Intake and Output 07/15/20 07/16/20 19:00 07:00 Intake Total 1092.5 ml Output Total 1100 ml 600 ml Balance -7.5 ml -600 ml Intake Free Water 300 ml IV Total 192.5 ml Tube Feeding 600 ml Output Urine Total 1100 ml 600 ml # Voids 1 Dressing: other Wound: other Cardiovascular: RSR Respiratory: decreased breath sounds Abdomen: soft, non-tender, present bowel sounds, non-distended Extremities: no edema, no tenderness, no cyanosis Laboratory Tests Test 07/16/20 05:00 White Blood Count 9.5 K/UL (4.8-10.8) Red Blood Count 3.23 M/UL (4.20-5.40) L Hemoglobin 9.5 G/DL (12.0-16.0) L Hematocrit 29.4 % (37.0-47.0) L Mean Corpuscular Volume 91 FL (80-99) Mean Corpuscular Hemoglobin 29.3 PG (27.0-31.0) Mean Corpuscular Hemoglobin Concent 32.2 G/DL (32.0-36.0) Red Cell Distribution Width 15.1 % (11.6-14.8) H Platelet Count 298 K/UL (150-450) Mean Platelet Volume 6.5 FL (6.5-10.1) Neutrophils (%) (Auto) 75.1 % (45.0-75.0) H Lymphocytes (%) (Auto) 16.4 % (20.0-45.0) L Monocytes (%) (Auto) 7.1 % (1.0-10.0) Eosinophils (%) (Auto) 1.0 % (0.0-3.0) Basophils (%) (Auto) 0.5 % (0.0-2.0) Sodium Level 137 MMOL/L (136-145) Potassium Level 4.2 MMOL/L (3.5-5.1) Chloride Level 103 MMOL/L (98-107) Carbon Dioxide Level 29 MMOL/L (21-32) Anion Gap 5 mmol/L (5-15) Blood Urea Nitrogen 18 mg/dL (7-18) Creatinine 0.4 MG/DL (0.55-1.30) L Estimat Glomerular Filtration Rate > 60 mL/min (>60) Glucose Level 103 MG/DL (74-106) Calcium Level 9.0 MG/DL (8.5-10.1) Plan Problems: (1) Fever (2) Leukocytosis Assessment & Plan: on abx id input appreciated wounds not infected nutrition (3) Tachycardia (4) Decubitus skin ulcer (5) Pyelonephritis (6) Malnutrition (7) Sepsis Assessment & Plan: ill appearing poor skin turgor leukocytosis anemia h/h low trending prbc prn Needs based on underweight, DM 35.5kg 30-40 kcals/kg 8983-7123 total kcals 1.25-2 g protein/kg 44-71 g total protein 25-35ml/kcal mL/kg [id number] total fluid mLs NUTRITION DIAGNOSIS: Swallowing difficulty R/T dysphagia as evidenced by pt is Gtube dependent. ENTERAL NUTRITION RECOMMENDATIONS: Glucerna 1.2 @50ml x24 hrs to provide 1200ml, 1440 kcal, 72g pro, 966ml free H2O - As able rec carb control formula for h/o DM. - Start @30ml/hr for 6 hrs, advance as tolerated 10ml/hr q4-6 hrs to goal. - Flush per MD/ HOB over 30 degrees ADDITIONAL RECOMMENDATIONS: - Per SNF: 5'3" and 78lbs/35.45kg. - Check lytes daily, replete as needed - A1c for eval of glycemic control - Wound care: advanced per RN, f/up with WC RN. Add LINA BID w/ GT, Vit C 250mg BID (2) Decubitus skin ulcer Assessment & Plan: This is an emaciated pt whom presented on admission with Multiple Pressure Injuries. Unstageable Pressure Injury Sacrum (L)11cm x (W)10.5cm. Base of wound is 90% necrotic, surrounding 10% moist, erythematous borders. Edges adherent to base of wound. No odor or exudate noted. Unstageable Pressure Injury L trochanter(L)3.5cm x (W)5.5cm. Base of wound is 95% necrotic, 5% surrounding borders arleen. Edges adherent to base of wound. No odor or exudate noted.Periwound is pale. Non-Blanchable erythema without induration L Ischium. Non-Blanchable erythema without induration bony prominences of L Hip/L Trochanter/L Ischial tuberosity. DTPI L Heel(L)2.5cmx(W)2cm.Base of Pressure Injury is fluctuant, Maroon in colour with surrounding non-blanchable erythema. Non-Blanchable erythema without induration L Hallux (L)1cm x (W)2cm. DTPI R Heel (L)6cm x (W)8cm.Base of Pressure Injury is fluctuant and maroon in colour. Edges are adherent to base of Pressure Injury. Unstageable Pressure Injury dorsal R 1st metatarsal(L)0.8cm x (W)0.6cm.Base of wound is 100% necrotic with marginal erythema along borders . Edges adherent to base of wound.. Non-Blanchable erythema without induration distal/lateral R foot (L)1.5cm x (W)1.5cm. Non-Blanchable erythema without induration R Hallux. Tx.Plan: Cleanse Sacral wound with Saline. Apply Therahoney. Apply Moisture Barrier Paste periwound. Cover with Optifoam drsg. Change every 3 days and prn. Cleanse L Trochanteric wound with Saline.Apply Therhaoney.Apply Moisture Barrier paste Periwound. Cover with Optifoam drsg. Change every 3 days and prn. Apply Moisture Barrier Paste to R and L ischium. Cover each site with Optifoam drsg. Change every 3 days and prn. Cover R hip /R Trochanter with Optifoam drsgs. Change every 7 days and prn. Apply Cavilon Skin Barrier to R heel , R 1st metatarsal,R hallux, Distal /Lateral R foot. Cover each Pressure Injury with Optifoam drsg. Change every 7 days and prn. Apply Cavilon Skin Barrier o L Heel , L Hallux, Distal lateral L Foot . Cover each Pressure Injury with Optifoam drsg. Change every 7 days and prn. Reposition at least every 2hours or as tolerated. Off-load heels with Pillow. APM/SOLOMON Mattress Overlay. (3) UTI (urinary tract infection) (4) Pneumonia (5) Sepsis Assessment & Plan: leukocytosis lactic acidosis malnutrition underweight bmi 13 micro noted on abx as per ID cont abx wounds unlikely etiology will follow with local care and evaluation to ensure improving thank you There is a slight degree of image degradation due to motion artifact. The right upper lobe is largely clear following may be some interstitial septal thickening in the apex. The right middle lobe is clear. The right lower lobe demonstrates some atelectasis at the right lung base. There is also a focal 6 mm nodular opacity, image 50 series 5. There is a vague mosaic attenuation pattern. Left upper lobe demonstrates scattered areas of mosaic attenuation superiorly image 10 of series 5 demonstrates a 3 mm left upper lobe nodule.. Irregular consolidative opacities are seen in the inferior left upper lobe. More extensive consolidation in a patchy and irregular distribution are seen in the left lower lobe. There is a small left pleural effusion. The heart is upper limits of normal in size. The ascending thoracic aorta is mildly ectatic. No mediastinal or hilar mass or adenopathy. Unremarkable. No axillary or chest wall mass or adenopathy demonstrated. The bones are unremarkable except for minimal degenerative spondylosis changes and slight anterior bowing of the sternum. The included lung bases demonstrate a gastrostomy which appears well-positioned. There is trace ascites Impression: Opacities in the left lower lobe and also to a lesser extent in the left upper lobe and minimally in the right lower lobe. Appearance is consistent with consolidation rather than mass. Most likely represents pneumonia, appearance nonspecific as regards etiology. Patchy pulmonary edema also possible, among other possibilities Small left pleural effusion Bilateral small nodules, as described. No further follow-up necessary if there are no risk factors for lung carcinoma. There are significant risk factors, then short interval follow-up CT in 6-12 months is recommended Trace ascites (8) UTI (urinary tract infection) (9) Pneumonia (10) PEG (percutaneous endoscopic gastrostomy) adjustment/replacement/removal Chao Ovalle Jul 16, 2020 12:11
--- NOTE | 2020-07-16 12:32 | Nephrology Progress Note ---
Assessment/Plan Problem List: (1) Dehydration (2) Electrolyte imbalance (3) UTI (urinary tract infection) (4) Sepsis (5) Malnutrition (6) Pyelonephritis (7) Leukocytosis Assessment Electrolyte imbalance, hypernatremia, hypokalemia Pyelonephritis, leukocytosis Fever, tachycardia Plan July 16: Labs reviewed. Renal parameters stable. Blood pressure stable. July 15: Labs reviewed. Renal parameters stable. Blood pressure is stable. July 14: No CHEM panel done today. Stable from renal standpoint of view. July 13: CHEM panel reviewed. Renal parameters stable. Continue per consultants. Midodrine for BP support on board. July 12: No chemistry panel drawn today. Medication list reviewed. Continue to monitor electrolytes and renal parameters. Continue per consultants. July 11: Labs reviewed. Renal parameters stable. Electrolytes within normal limit. Will stop IV fluid. Will start midodrine for low blood pressure. July 10: Serum sodium improved. Low potassium and low phosphorus addressed. IV down to 50 cc an hour. Stable from renal standpoint of view. Continue to monitor electrolytes and chemistries. Previously: Change IV to D5W Potassium supplement Anemia work-up Albumin bolus Monitor electrolytes and renal parameters Per orders Subjective ROS Limited/Unobtainable: No Constitutional: Reports: malaise, weakness Objective Objective Last 24 Hour Vital Signs Date Time Temp Pulse Resp B/P (MAP) Pulse Ox O2 Delivery O2 Flow Rate FiO2 07/16/20 09:00 Nasal Cannula 3.0 07/16/20 08:00 97.3 88 20 97/50 (66) 99 07/16/20 04:00 98.9 84 20 102/60 (74) 95 07/16/20 00:00 98.9 78 20 100/51 (67) 97 07/15/20 21:00 Nasal Cannula 3.0 07/15/20 20:00 98.9 76 19 100/95 (97) 96 07/15/20 16:00 98.1 74 20 102/56 (71) 96 07/15/20 14:54 99.0 Intake and Output 07/15/20 07/16/20 19:00 07:00 Intake Total 1092.5 ml Output Total 1100 ml 600 ml Balance -7.5 ml -600 ml Intake Free Water 300 ml IV Total 192.5 ml Tube Feeding 600 ml Output Urine Total 1100 ml 600 ml # Voids 1 Laboratory Tests 07/16/20 05:00: White Blood Count 9.5, Red Blood Count 3.23L, Hemoglobin 9.5L, Hematocrit 29.4L, Mean Corpuscular Volume 91, Mean Corpuscular Hemoglobin 29.3, Mean Corpuscular Hemoglobin Concent 32.2, Red Cell Distribution Width 15.1H, Platelet Count 298, Mean Platelet Volume 6.5, Neutrophils (%) (Auto) 75.1H, Lymphocytes (%) (Auto) 16.4L, Monocytes (%) (Auto) 7.1, Eosinophils (%) (Auto) 1.0, Basophils (%) (Auto) 0.5, Sodium Level 137, Potassium Level 4.2, Chloride Level 103, Carbon Dioxide Level 29, Anion Gap 5, Blood Urea Nitrogen 18, Creatinine 0.4L, Estimat Glomerular Filtration Rate > 60, Glucose Level 103, Calcium Level 9.0 Height (Feet): 5 Height (Inches): 1.00 Weight (Pounds): 99 General Appearance: no apparent distress Cardiovascular: normal rate Respiratory/Chest: decreased breath sounds Abdomen: soft Gabriele Honeycutt MD Jul 16, 2020 12:32
[2020-07-16 16:00] VITALS: BP 92/59
[2020-07-16 20:00] VITALS: BP 109/60
[2020-07-17] VITALS: BP 97/58
[2020-07-17 04:00] VITALS: BP 99/54
[2020-07-17] MEDS: Midodrine 10mg tab ORAL SCH ×3 (05:52→21:21)
[2020-07-17] MEDS: NovoLOG Insulin Flexpen SUBQ SCH ×4 (06:18→21:00)
[2020-07-17 06:54] LABS: BASOPHILS % (AUTO) 0.7 % (0.0-2.0); EOSINOPHILS % (AUTO) 1.3 % (0.0-3.0); HEMATOCRIT 27.7 % (37.0-47.0); HEMOGLOBIN 9.3 G/DL (12.0-16.0); MEAN CORPUSCULAR VOLUME 88 FL (80-99); MONOCYTES % (AUTO) 6.2 % (1.0-10.0); NEUTROPHILS % (AUTO) 71.8 % (45.0-75.0); PLATELET COUNT 327 K/UL (150-450); RED BLOOD COUNT 3.13 M/UL (4.20-5.40); WHITE BLOOD COUNT 7.6 K/UL (4.8-10.8)
[2020-07-17 07:16] LABS: ANION GAP 4 mmol/L (5-15); BLOOD UREA NITROGEN 19 mg/dL (7-18); CARBON DIOXIDE 31 MMOL/L (21-32); CHLORIDE 103 MMOL/L (98-107); CREATININE 0.5 MG/DL (0.55-1.30); SODIUM 138 MMOL/L (136-145)
[2020-07-17 08:00] VITALS: BP 108/55
--- NOTE | 2020-07-17 09:30 | Discharge Summary ---
DATE OF ADMISSION: 07/08/2020 This is one of several admissions to [facility] of this 69-year-old lady because of altered mental status and pulmonary congestion. HISTORY OF PRESENT ILLNESS: Details of the event and circumstances that led the patient to be admitted to this medical unit can be found in the H&P. In brief, the patient was discharged 2 weeks ago from this institution after an admission for sepsis to an extended care facility. She was doing well in the extended care facility and tolerated feeding and remained hemodynamically stable and afebrile. On the day of admission, patient developed fever, tachycardia, and altered mental status. She was transferred to [facility] ER where she was found to have sepsis and flu-like syndrome and was admitted. HOSPITAL COURSE: Upon admission, the patient underwent clinical, biological, and imaging studies. Clinical assessment revealed the patient was moderately hypotensive, tachycardic, febrile, and nonresponsive. Laboratory tests revealed the patient has leukocytosis with normal renal function and the patient was placed on piperacillin 3.375 g IV piggyback q.6 plus tazobactam. In addition, in past medical history, the patient is known to have seizure disorder, status post CVA completely aphasic. The patient was fed by gastrostomy tube over the next several days. The patient's condition markedly improved. Her fever resolved and tachycardia remained normal and leukocytosis declined from 70.7 to 10.3 within 4 days. She completed IV antibiotic. Her laboratory tests now were normal. showed no active disease. Her urinalysis was too numerous to count on July 08, it is now 10 to 15. The patient remained lethargic, not responding, but hemodynamically stable. has been discontinued and she has been cleared by the Infectious Disease specialist. She will be transferred back to the extended care facility where she will be seen in 24 hours after discharge. Gale Abarca M.D. DR: JET JOB#: [id number] CC:
--- NOTE | 2020-07-17 09:55 | Nephrology Progress Note ---
Assessment/Plan Problem List: (1) Dehydration (2) Electrolyte imbalance (3) UTI (urinary tract infection) (4) Sepsis (5) Malnutrition (6) Pyelonephritis (7) Leukocytosis Assessment Electrolyte imbalance, hypernatremia, hypokalemia Pyelonephritis, leukocytosis Fever, tachycardia Plan July 17: Labs reviewed. Renal parameters stable. Blood pressure 90 to 100 systolic stable. July 16: Labs reviewed. Renal parameters stable. Blood pressure stable. July 15: Labs reviewed. Renal parameters stable. Blood pressure is stable. July 14: No CHEM panel done today. Stable from renal standpoint of view. July 13: CHEM panel reviewed. Renal parameters stable. Continue per consulta nts. Midodrine for BP support on board. July 12: No chemistry panel drawn today. Medication list reviewed. Continue to monitor electrolytes and renal parameters. Continue per consultants. July 11: Labs reviewed. Renal parameters stable. Electrolytes within normal limit. Will stop IV fluid. Will start midodrine for low blood pressure. July 10: Serum sodium improved. Low potassium and low phosphorus addressed. IV down to 50 cc an hour. Stable from renal standpoint of view. Continue to monitor electrolytes and chemistries. Previously: Change IV to D5W Potassium supplement Anemia work-up Albumin bolus Monitor electrolytes and renal parameters Per orders Subjective ROS Limited/Unobtainable: No Constitutional: Reports: malaise, weakness Objective Objective Last 24 Hour Vital Signs Date Time Temp Pulse Resp B/P (MAP) Pulse Ox O2 Delivery O2 Flow Rate FiO2 07/17/20 08:00 97.7 61 18 108/55 (72) 98 07/17/20 04:00 97.3 76 20 99/54 (69) 100 07/17/20 00:00 97.7 79 20 97/58 (71) 97 07/16/20 21:00 Nasal Cannula 3.0 07/16/20 20:00 97.5 87 20 109/60 (76) 99 07/16/20 16:00 99.0 81 20 92/59 (70) 97 07/16/20 12:00 98.2 90 20 102/56 (71) 97 Intake and Output 07/16/20 07/17/20 19:00 07:00 Intake Total 800 ml Output Total 300 ml 300 ml Balance -300 ml 500 ml Intake Free Water 300 ml Tube Feeding 500 ml Output Urine Total 300 ml 300 ml Laboratory Tests 07/16/20 11:41: POC Whole Blood Glucose 102 07/16/20 16:26: POC Whole Blood Glucose 117H 07/16/20 20:20: POC Whole Blood Glucose 120H 07/17/20 05:13: POC Whole Blood Glucose [Pending] 07/17/20 05:55: White Blood Count 7.6, Red Blood Count 3.13L, Hemoglobin 9.3L, Hematocrit 27.7L, Mean Corpuscular Volume 88, Mean Corpuscular Hemoglobin 29.6, Mean Corpuscular Hemoglobin Concent 33.6, Red Cell Distribution Width 16.0H, Platelet Count 327, Mean Platelet Volume 6.7, Neutrophils (%) (Auto) 71.8, Lymphocytes (%) (Auto) 20.0, Monocytes (%) (Auto) 6.2, Eosinophils (%) (Auto) 1.3, Basophils (%) (Auto) 0.7, Sodium Level 138, Potassium Level 4.0, Chloride Level 103, Carbon Dioxide Level 31, Anion Gap 4L, Blood Urea Nitrogen 19H, Creatinine 0.5L, Estimat Glome rular Filtration Rate > 60, Glucose Level 116H, Calcium Level 9.0 07/17/20 06:18: POC Whole Blood Glucose 109H Height (Feet): 5 Height (Inches): 1.00 Weight (Pounds): 99 General Appearance: no apparent distress Cardiovascular: normal rate Respiratory/Chest: decreased breath sounds Abdomen: soft Gabriele Honeycutt MD Jul 17, 2020 09:55
[2020-07-17] MEDS: Multivitamin w/Minerals tab ORAL SCH (10:16)
[2020-07-17] MEDS: levETIRAcetam 500mg/5ml Liquid GT SCH ×2 (10:16→21:21)
[2020-07-17] MEDS: Ascorbic Acid 500mg tab ORAL SCH (10:16)
[2020-07-17] MEDS: Enoxaparin 40mg Inj SUBQ SCH ×2 (10:25→21:22)
--- NOTE | 2020-07-17 11:22 | Surgery Progress Note ---
Surgery Progress Note Subjective Additional Comments Patient seen and examined bedside. No acute events. Resting comfortably. Labs reviewed micro reviewed imaging reviewed. Afebrile hemodynamically stable at this time Objective Last 24 Hour Vital Signs Date Time Temp Pulse Resp B/P (MAP) Pulse Ox O2 Delivery O2 Flow Rate FiO2 07/17/20 08:00 97.7 61 18 108/55 (72) 98 07/17/20 04:00 97.3 76 20 99/54 (69) 100 07/17/20 00:00 97.7 79 20 97/58 (71) 97 07/16/20 21:00 Nasal Cannula 3.0 07/16/20 20:00 97.5 87 20 109/60 (76) 99 07/16/20 16:00 99.0 81 20 92/59 (70) 97 07/16/20 12:00 98.2 90 20 102/56 (71) 97 I&O Intake and Output 07/16/20 07/17/20 19:00 07:00 Intake Total 800 ml Output Total 300 ml 300 ml Balance -300 ml 500 ml Intake Free Water 300 ml Tube Feeding 500 ml Output Urine Total 300 ml 300 ml Dressing: saturated Wound: other Cardiovascular: RSR Respiratory: decreased breath sounds Abdomen: soft, non-tender, present bowel sounds, non-distended Extremities: no tenderness, no cyanosis Laboratory Tests Test 07/16/20 11:41 07/16/20 16:26 07/16/20 20:20 07/17/20 05:13 POC Whole Blood Glucose 102 MG/DL (74-106) 117 MG/DL (74-106) H 120 MG/DL (74-106) H Pending Test 07/17/20 05:55 07/17/20 06:18 White Blood Count 7.6 K/UL (4.8-10.8) Red Blood Count 3.13 M/UL (4.20-5.40) L Hemoglobin 9.3 G/DL (12.0-16.0) L Hematocrit 27.7 % (37.0-47.0) L Mean Corpuscular Volume 88 FL (80-99) Mean Corpuscular Hemoglobin 29.6 PG (27.0-31.0) Mean Corpuscular Hemoglobin Concent 33.6 G/DL (32.0-36.0) Red Cell Distribution Width 16.0 % (11.6-14.8) H Platelet Count 327 K/UL (150-450) Mean Platelet Volume 6.7 FL (6.5-10.1) Neutrophils (%) (Auto) 71.8 % (45.0-75.0) Lymphocytes (%) (Auto) 20.0 % (20.0-45.0) Monocytes (%) (Auto) 6.2 % (1.0-10.0) Eosinophils (%) (Auto) 1.3 % (0.0-3.0) Basophils (%) (Auto) 0.7 % (0.0-2.0) Sodium Level 138 MMOL/L (136-145) Potassium Level 4.0 MMOL/L (3.5-5.1) Chloride Level 103 MMOL/L (98-107) Carbon Dioxide Level 31 MMOL/L (21-32) Anion Gap 4 mmol/L (5-15) L Blood Urea Nitrogen 19 mg/dL (7-18) H Creatinine 0.5 MG/DL (0.55-1.30) L Estimat Glomerular Filtration Rate > 60 mL/min (>60) Glucose Level 116 MG/DL (74-106) H Calcium Level 9.0 MG/DL (8.5-10.1) POC Whole Blood Glucose 109 MG/DL (74-106) H Plan Problems: (1) Fever (2) Leukocytosis Assessment & Plan: on abx id input appreciated wounds not infected nutrition (3) Tachycardia (4) Decubitus skin ulcer (5) Pyelonephritis (6) Malnutrition (7) Sepsis Assessment & Plan: ill appearing poor skin turgor leukocytosis anemia h/h low trending prbc prn Needs based on underweight, DM 35.5kg 30-40 kcals/kg [id number] total kcals 1.25-2 g protein/kg 44-71 g total protein 25-35ml/kcal mL/kg [phone] total fluid mLs NUTRITION DIAGNOSIS: Swallowing difficulty R/T dysphagia as evidenced by pt is Gtube dependent. ENTERAL NUTRITION RECOMMENDATIONS: Glucerna 1.2 @50ml x24 hrs to provide 1200ml, 1440 kcal, 72g pro, 966ml free H2O - As able rec carb control formula for h/o DM. - Start @30ml/hr for 6 hrs, advance as tolerated 10ml/hr q4-6 hrs to goal. - Flush per MD/ HOB over 30 degrees ADDITIONAL RECOMMENDATIONS: - Per SNF: 5'3" and 78lbs/35.45kg. - Check lytes daily, replete as needed - A1c for eval of glycemic control - Wound care: advanced per RN, f/up with WC RN. Add LINA BID w/ GT, Vit C 250mg BID (2) Decubitus skin ulcer Assessment & Plan: This is an emaciated pt whom presented on admission with Multiple Pressure Injuries. Unstageable Pressure Injury Sacrum (L)11cm x (W)10.5cm. Base of wound is 90% necrotic, surrounding 10% moist, erythematous borders. Edges adherent to base of wound. No odor or exudate noted. Unstageable Pressure Injury L trochanter(L)3.5cm x (W)5.5cm. Base of wound is 95% necrotic, 5% surrounding borders arleen. Edges adherent to base of wound. No odor or exudate noted.Periwound is pale. Non-Blanchable erythema without induration L Ischium. Non-Blanchable erythema without induration bony prominences of L Hip/L Trochanter/L Ischial tuberosity. DTPI L Heel(L)2.5cmx(W)2cm.Base of Pressure Injury is fluctuant, Maroon in colour with surrounding non-blanchable erythema. Non-Blanchable erythema without induration L Hallux (L)1cm x (W)2cm. DTPI R Heel (L)6cm x (W)8cm.Base of Pressure Injury is fluctuant and maroon in colour. Edges are adherent to base of Pressure Injury. Unstageable Pressure Injury dorsal R 1st metatarsal(L)0.8cm x (W)0.6cm.Base of wound is 100% necrotic with marginal erythema along borders . Edges adherent to base of wound.. Non-Blanchable erythema without induration distal/lateral R foot (L)1.5cm x (W)1.5cm. Non-Blanchable erythema without induration R Hallux. Tx.Plan: Cleanse Sacral wound with Saline. Apply Therahoney. Apply Moisture Barrier Paste periwound. Cover with Optifoam drsg. Change every 3 days and prn. Cleanse L Trochanteric wound with Saline.Apply Therhaoney.Apply Moisture Barrier paste Periwound. Cover with Optifoam drsg. Change every 3 days and prn. Apply Moisture Barrier Paste to R and L ischium. Cover each site with Optifoam d rsg. Change every 3 days and prn. Cover R hip /R Trochanter with Optifoam drsgs. Change every 7 days and prn. Apply Cavilon Skin Barrier to R heel , R 1st metatarsal,R hallux, Distal /Lateral R foot. Cover each Pressure Injury with Optifoam drsg. Change every 7 days and prn. Apply Cavilon Skin Barrier o L Heel , L Hallux, Distal lateral L Foot . Cover each Pressure Injury with Optifoam drsg. Change every 7 days and prn. Reposition at least every 2hours or as tolerated. Off-load heels with Pillow. APM/SOLOMON Mattress Overlay. (3) UTI (urinary tract infection) (4) Pneumonia (5) Sepsis Assessment & Plan: leukocytosis lactic acidosis malnutrition underweight bmi 13 micro noted on abx as per ID cont abx wounds unlikely etiology will follow with local care and evaluation to ensure improving thank you There is a slight degree of image degradation due to motion artifact. The right upper lobe is largely clear following may be some interstitial septal thickening in the apex. The right middle lobe is clear. The right lower lobe demonstrates some atelectasis at the right lung base. There is also a focal 6 mm nodular opacity, image 50 series 5. There is a vague mosaic attenuation pattern. Left upper lobe demonstrates scattered areas of mosaic attenuation superiorly image 10 of series 5 demonstrates a 3 mm left upper lobe nodule.. Irregular consolidative opacities are seen in the inferior left upper lobe. More extensive consolidation in a patchy and irregular distribution are seen in the left lower lobe. There is a small left pleural effusion. The heart is upper limits of normal in size. The ascending thoracic aorta is mildly ectatic. No mediastinal or hilar mass or adenopathy. Unremarkable. No axillary or chest wall mass or adenopathy demonstrated. The bones are unremarkable except for minimal degenerative spondylosis changes and slight anterior bowing of the sternum. The included lung bases demonstrate a gastrostomy which appears well-positioned. There is trace ascites Impression: Opacities in the left lower lobe and also to a lesser extent in the left upper lobe and minimally in the right lower lobe. Appearance is consistent with consolidation rather than mass. Most likely represents pneumonia, appearance nonspecific as regards etiology. Patchy pulmonary edema also possible, among other possibilities Small left pleural effusion Bilateral small nodules, as described. No further follow-up necessary if there are no risk factors for lung carcinoma. There are significant risk factors, then short interval follow-up CT in 6-12 months is recommended Trace ascites (8) UTI (urinary tract infection) (9) Pneumonia (10) PEG (percutaneous endoscopic gastrostomy) adjustment/replacement/removal Chao Ovalle Jul 17, 2020 11:22
--- NOTE | 2020-07-17 11:27 | Infectious Diseases Prog Note ---
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 but with fever at SNF [employer] Lymphopenia Hypoxic w/ NC O2 requirement, r/o PNA 07/08 BCx NTD UA+, UCx <10k GNR COVID rapid test neg, PCR neg CXR: No acute process 07/14 UCx +yeast (colonizer) +RLE DVT on US 07/09 Elevated LFTs 67 / 120 Abd TTP 06/29 Abd US wnl Acute hep panel neg Cr 0.5 HIV screen neg PMH: DM CHF Dementia SNF resident Plan: Stop Zosyn #7/7 empiric OK to d/c to SNF from ID standpoint after completes abx today No indication to treat yeast in UCx, most likely colonizer Tx of RLE DVT per primary, on lovenox BID Consider CTA chest to r/o PE, could be cause of persistent leukocytosis, hypoxia Trend temp curve Trend WBC, improving 07/17 SP Zosyn #7 07/10 SP CTX #2 Monitor CBC/CMP Monitor temp curve, hemodynamics Monitor resp status D/w RN Thank you for this consult. [facility] will continue to follow. Subjective Allergies: Coded Allergies: ERYTHROMYCIN BASE (Verified Allergy, Unknown, 11/12/16) AF WBC 7.6 NAD in bed Not interactive Objective Last 24 Hour Vital Signs Date Time Temp Pulse Resp B/P (MAP) Pulse Ox O2 Delivery O2 Flow Rate FiO2 07/17/20 08:00 97.7 61 18 108/55 (72) 98 07/17/20 04:00 97.3 76 20 99/54 (69) 100 07/17/20 00:00 97.7 79 20 97/58 (71) 97 07/16/20 21:00 Nasal Cannula 3.0 07/16/20 20:00 97.5 87 20 109/60 (76) 99 07/16/20 16:00 99.0 81 20 92/59 (70) 97 07/16/20 12:00 98.2 90 20 102/56 (71) 97 Height (Feet): 5 Height (Inches): 1.00 Weight (Pounds): 99 Gen: NAD HEENT: NCAT Pulm: BL chest rise Abd: Non-distended Ext: No c/c/e Skin: No visible rashes Neuro: Awake Laboratory Tests Test 07/16/20 11:41 07/16/20 16:26 07/16/20 20:20 07/17/20 05:13 POC Whole Blood Glucose 102 MG/DL (74-106) 117 MG/DL (74-106) H 120 MG/DL (74-106) H Pending Test 07/17/20 05:55 07/17/20 06:18 White Blood Count 7.6 K/UL (4.8-10.8) Red Blood Count 3.13 M/UL (4.20-5.40) L Hemoglobin 9.3 G/DL (12.0-16.0) L Hematocrit 27.7 % (37.0-47.0) L Mean Corpuscular Volume 88 FL (80-99) Mean Corpuscular Hemoglobin 29.6 PG (27.0-31.0) Mean Corpuscular Hemoglobin Concent 33.6 G/DL (32.0-36.0) Red Cell Distribution Width 16.0 % (11.6-14.8) H Platelet Count 327 K/UL (150-450) Mean Platelet Volume 6.7 FL (6.5-10.1) Neutrophils (%) (Auto) 71.8 % (45.0-75.0) Lymphocytes (%) (Auto) 20.0 % (20.0-45.0) Monocytes (%) (Auto) 6.2 % (1.0-10.0) Eosinophils (%) (Auto) 1.3 % (0.0-3.0) Basophils (%) (Auto) 0.7 % (0.0-2.0) Sodium Level 138 MMOL/L (136-145) Potassium Level 4.0 MMOL/L (3.5-5.1) Chloride Level 103 MMOL/L (98-107) Carbon Dioxide Level 31 MMOL/L (21-32) Anion Gap 4 mmol/L (5-15) L Blood Urea Nitrogen 19 mg/dL (7-18) H Creatinine 0.5 MG/DL (0.55-1.30) L Estimat Glomerular Filtration Rate > 60 mL/min (>60) Glucose Level 116 MG/DL (74-106) H Calcium Level 9.0 MG/DL (8.5-10.1) POC Whole Blood Glucose 109 MG/DL (74-106) H Current Medications Medications (Trade) Dose Ordered Sig/Alvarado Route PRN Reason Start Time Stop Time Status Last Admin Dose Admin Acetaminophen (Tylenol) 650 mg Q4H PRN ORAL MILD PAIN/TEMP > 101F 07/09/20 02:30 08/08/20 02:29 07/15/20 14:24 Ascorbic Acid (Vitamin C) 500 mg DAILY ORAL 07/09/20 09:00 08/08/20 08:59 07/17/20 10:16 Atorvastatin Calcium (Lipitor) 10 mg BEDTIME GT 07/09/20 21:00 10/07/20 20:59 07/16/20 21:01 Bisacodyl (Dulcolax) 10 mg DAILY PRN RECTAL Constipation 07/09/20 02:30 10/07/20 02:29 Clonidine HCl (Catapres Tab) 0.1 mg Q8H PRN GT HYPERTENSION 07/09/20 02:30 10/07/20 02:29 Dextrose (Dextrose 50%) 25 ml Q30M PRN IV Hypoglycemia 07/09/20 02:45 10/07/20 02:44 Dextrose (Dextrose 50%) 50 ml Q30M PRN IV Hypoglycemia 07/09/20 02:45 10/07/20 02:44 Enoxaparin Sodium (Lovenox) 40 mg Q12HR SUBQ 07/13/20 21:00 10/11/20 20:59 07/17/20 10:25 Insulin Aspart (NovoLOG) BEFORE MEALS AND HS SUBQ 07/09/20 06:30 10/07/20 06:29 07/11/20 17:04 Levetiracetam (Keppra) 500 mg Q12HR GT 07/09/20 09:00 08/08/20 08:59 07/17/20 10:16 Midodrine (Pro-Amatine) 10 mg Q8HR ORAL 07/11/20 16:00 10/09/20 15:59 07/17/20 05:52 Multivitamins Therapeutic (Therapeutic Multivitamin) 1 ea DAILY ORAL 07/09/20 09:00 08/08/20 08:59 07/17/20 10:16 Potassium Chloride (K-Dur) 20 meq TWICE A DAY GT 07/10/20 14:00 10/08/20 13:59 07/17/20 10:16 Beth Marsh M.D. Jul 17, 2020 11:27
--- NOTE | 2020-07-17 11:29 | Hematology/Onc Progress Note ---
Assessment/Plan Assessment/Plan Internal Med Progress Note Covering for Dr. Abarca Chest X-Ray Diagnostic Results Chest X-Ray Diagnostic Results : Chest X-Ray Ordered: Yes # of Views/Limited/Complete: 1 View Indication: Other EP Interpretation: Yes Interpretation: no consolidation, no effusion, no pneumothorax, no acute car diopulmonary disease Impression: No acute disease Electronically Signed by: Kristina Rosario DO Assessment and Recs # Sepsis due to Pyelonephritis --> septic protocol started --> is on ivfs --> abx as per ID ceftriaxone --> imaging noted --> urine culture seen and spec # Positive for right lower extremity common femoral deep venous thrombosis --> anticoagulation has been started --> does have Elevated d-dimer # Anemia due to chronic disease --> panel as needed, closely monitor hgb trend -> hgb 10.7--> 9.3 # Leukocytosis due to infection --> per ID abx # Fever with flu like symptoms --> r/o covid19 --> due to above # HL --> lipitor and asa # Tachycardia --> ivfs should improve # Dvt ppx lovenox sq Subjective Allergies: Coded Allergies: ERYTHROMYCIN BASE (Verified Allergy, Unknown, 11/12/16) Subjective Subjective: 1/2: non verbal, no acute bleeding reported. 07/12: VSS afebrile, no acute distress noted 07/17: labs reviewed, h/h stable, dc planning continues Objective Objective Current Medications Medications (Trade) Dose Ordered Sig/Alvarado Route PRN Reason Start Time Stop Time Status Last Admin Dose Admin Acetaminophen (Tylenol) 650 mg Q4H PRN ORAL MILD PAIN/TEMP > 101F 07/09/20 02:30 08/08/20 02:29 07/15/20 14:24 Ascorbic Acid (Vitamin C) 500 mg DAILY ORAL 07/09/20 09:00 08/08/20 08:59 07/17/20 10:16 Atorvastatin Calcium (Lipitor) 10 mg BEDTIME GT 07/09/20 21:00 10/07/20 20:59 07/16/20 21:01 Bisacodyl (Dulcolax) 10 mg DAILY PRN RECTAL Constipation 07/09/20 02:30 10/07/20 02:29 Clonidine HCl (Catapres Tab) 0.1 mg Q8H PRN GT HYPERTENSION 07/09/20 02:30 10/07/20 02:29 Dextrose (Dextrose 50%) 25 ml Q30M PRN IV Hypoglycemia 07/09/20 02:45 10/07/20 02:44 Dextrose (Dextrose 50%) 50 ml Q30M PRN IV Hypoglycemia 07/09/20 02:45 10/07/20 02:44 Enoxaparin Sodium (Lovenox) 40 mg Q12HR SUBQ 07/13/20 21:00 10/11/20 20:59 07/17/20 10:25 Insulin Aspart (NovoLOG) BEFORE MEALS AND HS SUBQ 07/09/20 06:30 10/07/20 06:29 07/11/20 17:04 Levetiracetam (Keppra) 500 mg Q12HR GT 07/09/20 09:00 08/08/20 08:59 07/17/20 10:16 Midodrine (Pro-Amatine) 10 mg Q8HR ORAL 07/11/20 16:00 10/09/20 15:59 07/17/20 05:52 Multivitamins Therapeutic (Therapeutic Multivitamin) 1 ea DAILY ORAL 07/09/20 09:00 08/08/20 08:59 07/17/20 10:16 Potassium Chloride (K-Dur) 20 meq TWICE A DAY GT 07/10/20 14:00 10/08/20 13:59 07/17/20 10:16 Last 24 Hour Vital Signs Date Time Temp Pulse Resp B/P (MAP) Pulse Ox O2 Delivery O2 Flow Rate FiO2 07/17/20 08:00 97.7 61 18 108/55 (72) 98 07/17/20 04:00 97.3 76 20 99/54 (69) 100 07/17/20 00:00 97.7 79 20 97/58 (71) 97 07/16/20 21:00 Nasal Cannula 3.0 07/16/20 20:00 97.5 87 20 109/60 (76) 99 07/16/20 16:00 99.0 81 20 92/59 (70) 97 07/16/20 12:00 98.2 90 20 102/56 (71) 97 07/16/20 09:00 Nasal Cannula 3.0 07/16/20 08:00 97.3 88 20 97/50 (66) 99 07/16/20 04:00 98.9 84 20 102/60 (74) 95 07/16/20 00:00 98.9 78 20 100/51 (67) 97 07/15/20 21:00 Nasal Cannula 3.0 07/15/20 20:00 98.9 76 19 100/95 (97) 96 07/15/20 16:00 98.1 74 20 102/56 (71) 96 07/15/20 14:54 99.0 07/15/20 12:00 100.4 90 20 103/61 (75) 96 Intake and Output 07/16/20 07/17/20 19:00 07:00 Intake Total 800 ml Output Total 300 ml 300 ml Balance -300 ml 500 ml Intake Free Water 300 ml Tube Feeding 500 ml Output Urine Total 300 ml 300 ml Labs Test 07/14/20 20:25 07/15/20 05:15 07/15/20 06:16 07/16/20 05:00 POC Whole Blood Glucose 92 MG/DL (74-106) 122 MG/DL (74-106) White Blood Count 8.6 K/UL (4.8-10.8) 9.5 K/UL (4.8-10.8) Red Blood Count 3.10 M/UL (4.20-5.40) 3.23 M/UL (4.20-5.40) Hemoglobin 9.3 G/DL (12.0-16.0) 9.5 G/DL (12.0-16.0) Hematocrit 28.3 % (37.0-47.0) 29.4 % (37.0-47.0) Mean Corpuscular Volume 91 FL (80-99) 91 FL (80-99) Mean Corpuscular Hemoglobin 30.0 PG (27.0-31.0) 29.3 PG (27.0-31.0) Mean Corpuscular Hemoglobin Concent 32.9 G/DL (32.0-36.0) 32.2 G/DL (32.0-36.0) Red Cell Distribution Width 15.1 % (11.6-14.8) 15.1 % (11.6-14.8) Platelet Count 227 K/UL (150-450) 298 K/UL (150-450) Mean Platelet Volume 7.5 FL (6.5-10.1) 6.5 FL (6.5-10.1) Neutrophils (%) (Auto) 76.7 % (45.0-75.0) 75.1 % (45.0-75.0) Lymphocytes (%) (Auto) 13.9 % (20.0-45.0) 16.4 % (20.0-45.0) Monocytes (%) (Auto) 7.3 % (1.0-10.0) 7.1 % (1.0-10.0) Eosinophils (%) (Auto) 1.3 % (0.0-3.0) 1.0 % (0.0-3.0) Basophils (%) (Auto) 0.8 % (0.0-2.0) 0.5 % (0.0-2.0) Sodium Level 136 MMOL/L (136-145) 137 MMOL/L (136-145) Potassium Level 4.3 MMOL/L (3.5-5.1) 4.2 MMOL/L (3.5-5.1) Chloride Level 102 MMOL/L (98-107) 103 MMOL/L (98-107) Carbon Dioxide Level 27 MMOL/L (21-32) 29 MMOL/L (21-32) Anion Gap 7 mmol/L (5-15) 5 mmol/L (5-15) Blood Urea Nitrogen 18 mg/dL (7-18) 18 mg/dL (7-18) Creatinine 0.4 MG/DL (0.55-1.30) 0.4 MG/DL (0.55-1.30) Estimat Glomerular Filtration Rate > 60 mL/min (>60) > 60 mL/min (>60) Glucose Level 105 MG/DL (74-106) 103 MG/DL (74-106) Calcium Level 8.8 MG/DL (8.5-10.1) 9.0 MG/DL (8.5-10.1) Total Bilirubin 0.2 MG/DL (0.2-1.0) Aspartate Amino Transf (AST/SGOT) 24 U/L (15-37) Alanine Aminotransferase (ALT/SGPT) 30 U/L (12-78) Alkaline Phosphatase 66 U/L (46-116) Total Protein 6.8 G/DL (6.4-8.2) Albumin 1.8 G/DL (3.4-5.0) Globulin 5.0 g/dL Albumin/Globulin Ratio 0.4 (1.0-2.7) Test 07/16/20 06:11 07/16/20 11:41 07/16/20 16:26 07/16/20 20:20 POC Whole Blood Glucose 104 MG/DL (74-106) 102 MG/DL (74-106) 117 MG/DL (74-106) 120 MG/DL (74-106) Test 07/17/20 05:13 07/17/20 05:55 07/17/20 06:18 White Blood Count 7.6 K/UL (4.8-10.8) Red Blood Count 3.13 M/UL (4.20-5.40) Hemoglobin 9.3 G/DL (12.0-16.0) Hematocrit 27.7 % (37.0-47.0) Mean Corpuscular Volume 88 FL (80-99) Mean Corpuscular Hemoglobin 29.6 PG (27.0-31.0) Mean Corpuscular Hemoglobin Concent 33.6 G/DL (32.0-36.0) Red Cell Distribution Width 16.0 % (11.6-14.8) Platelet Count 327 K/UL (150-450) Mean Platelet Volume 6.7 FL (6.5-10.1) Neutrophils (%) (Auto) 71.8 % (45.0-75.0) Lymphocytes (%) (Auto) 20.0 % (20.0-45.0) Monocytes (%) (Auto) 6.2 % (1.0-10.0) Eosinophils (%) (Auto) 1.3 % (0.0-3.0) Basophils (%) (Auto) 0.7 % (0.0-2.0) Sodium Level 138 MMOL/L (136-145) Potassium Level 4.0 MMOL/L (3.5-5.1) Chloride Level 103 MMOL/L (98-107) Carbon Dioxide Level 31 MMOL/L (21-32) Anion Gap 4 mmol/L (5-15) Blood Urea Nitrogen 19 mg/dL (7-18) Creatinine 0.5 MG/DL (0.55-1.30) Estimat Glomerular Filtration Rate > 60 mL/min (>60) Glucose Level 116 MG/DL (74-106) Calcium Level 9.0 MG/DL (8.5-10.1) POC Whole Blood Glucose 109 MG/DL (74-106) Height (Feet): 5 Height (Inches): 1.00 Weight (Pounds): 99 Objective Physical Exam Sp02 EP Interpretation: reviewed, normal General Appearance: no apparent distress, non-verbal ++contracted Head: normocephalic, atraumatic ENT: hearing grossly normal, no angioedema Respiratory: chest non-tender, lungs clear, normal breath sounds,++2l Nc Cardiovascular: no edema, tachycardia Gastrointestinal: normal bowel sounds, non tender, soft, ++gt Rectal: deferred Musculoskeletal: normal inspection Neurologic: alert, motor strength/tone normal, no focal defects Skin: other - See RN skin exam. Lymphatic: no adenopathy Gu: valderrama+++ Gisela Lindquist NP Jul 17, 2020 11:29
[2020-07-17 12:00] VITALS: BP 110/59
[2020-07-17 16:00] VITALS: BP 107/55
--- NOTE | 2020-07-17 17:48 | General Progress Note ---
Subjective Constitutional: Reports: no symptoms HEENT: Reports: no symptoms Cardiovascular: Reports: no symptoms Respiratory: Reports: no symptoms Gastrointestinal/Abdominal: Reports: no symptoms Genitourinary: Reports: no symptoms Neurologic/Psychiatric: Reports: no symptoms Endocrine: Reports: no symptoms Hematologic/Lymphatic: Reports: no symptoms Allergies: Coded Allergies: ERYTHROMYCIN BASE (Verified Allergy, Unknown, 11/12/16) Objective Last 24 Hour Vital Signs Date Time Temp Pulse Resp B/P (MAP) Pulse Ox O2 Delivery O2 Flow Rate FiO2 07/17/20 16:00 98.0 76 18 107/55 (72) 98 07/17/20 12:00 98.0 72 18 110/59 (76) 97 07/17/20 09:00 Nasal Cannula 3.0 07/17/20 08:00 97.7 61 18 108/55 (72) 98 07/17/20 04:00 97.3 76 20 99/54 (69) 100 07/17/20 00:00 97.7 79 20 97/58 (71) 97 07/16/20 21:00 Nasal Cannula 3.0 07/16/20 20:00 97.5 87 20 109/60 (76) 99 Intake and Output 07/16/20 07/17/20 19:00 07:00 Intake Total 850 ml Output Total 300 ml 300 ml Balance -300 ml 550 ml Intake Free Water 300 ml Tube Feeding 550 ml Output Urine Total 300 ml 300 ml Laboratory Tests 07/16/20 20:20: POC Whole Blood Glucose 120H 07/17/20 05:13: POC Whole Blood Glucose [Pending] 07/17/20 05:55: White Blood Count 7.6, Red Blood Count 3.13L, Hemoglobin 9.3L, Hematocrit 27.7L, Mean Corpuscular Volume 88, Mean Corpuscular Hemoglobin 29.6, Mean Corpuscular Hemoglobin Concent 33.6, Red Cell Distribution Width 16.0H, Platelet Count 327, Mean Platelet Volume 6.7, Neutrophils (%) (Auto) 71.8, Lymphocytes (%) (Auto) 20.0, Monocytes (%) (Auto) 6.2, Eosinophils (%) (Auto) 1.3, Basophils (%) (Auto) 0.7, Sodium Level 138, Potassium Level 4.0, Chloride Level 103, Carbon Dioxide Level 31, Anion Gap 4L, Blood Urea Nitrogen 19H, Creatinine 0.5L, Estimat Glomerular Filtration Rate > 60, Glucose Level 116H, Calcium Level 9.0 07/17/20 06:18: POC Whole Blood Glucose 109H Height (Feet): 5 Height (Inches): 1.00 Weight (Pounds): 99 General Appearance: lethargic EENT: normal ENT inspection Neck: supple Cardiovascular: normal rate, regular rhythm, no gallop/murmur, no JVD Respiratory/Chest: lungs clear, normal breath sounds, no respiratory distress, no accessory muscle use Abdomen: normal bowel sounds, non tender, soft, no organomegaly, no mass Neurologic: unresponsive, aphasia Skin: warm/dry Gale Abarca MD Jul 17, 2020 17:48
[2020-07-17 20:00] VITALS: BP 110/63
[2020-07-18] VITALS: BP 105/65
[2020-07-18 04:00] VITALS: BP 103/61
[2020-07-18] MEDS: NovoLOG Insulin Flexpen SUBQ SCH ×4 (05:35→21:00)
[2020-07-18] MEDS: Midodrine 10mg tab ORAL SCH ×3 (05:35→21:29)
[2020-07-18 08:00] VITALS: BP 112/54
[2020-07-18] MEDS: Multivitamin w/Minerals tab ORAL SCH (09:46)
[2020-07-18] MEDS: levETIRAcetam 500mg/5ml Liquid GT SCH ×2 (09:46→21:29)
[2020-07-18] MEDS: Ascorbic Acid 500mg tab ORAL SCH (09:46)
[2020-07-18] MEDS: Enoxaparin 40mg Inj SUBQ SCH ×2 (09:46→21:31)
--- NOTE | 2020-07-18 10:47 | Nephrology Progress Note ---
Assessment/Plan Problem List: (1) Dehydration (2) Electrolyte imbalance (3) UTI (urinary tract infection) (4) Sepsis (5) Malnutrition (6) Pyelonephritis (7) Leukocytosis Assessment Electrolyte imbalance, hypernatremia, hypokalemia Pyelonephritis, leukocytosis Fever, tachycardia Plan July 18: No CHEM panel drawn today. Medication list reviewed. Clinically stable. Remains full code. Continue per consultants. July 17: Labs reviewed. Renal parameters stable. Blood pressure 90 to 100 systolic stable. July 16: Labs reviewed. Renal parameters stable. Blood pressure stable. July 15: Labs reviewed. Renal parameters stable. Blood pressure is stable. July 14: No CHEM panel done today. Stable from renal standpoint of view. July 13: CHEM panel reviewed. Renal parameters stable. Continue per cons ultants. Midodrine for BP support on board. July 12: No chemistry panel drawn today. Medication list reviewed. Continue to monitor electrolytes and renal parameters. Continue per consultants. July 11: Labs reviewed. Renal parameters stable. Electrolytes within normal limit. Will stop IV fluid. Will start midodrine for low blood pressure. July 10: Serum sodium improved. Low potassium and low phosphorus addressed. IV down to 50 cc an hour. Stable from renal standpoint of view. Continue to mo nitor electrolytes and chemistries. Previously: Change IV to D5W Potassium supplement Anemia work-up Albumin bolus Monitor electrolytes and renal parameters Per orders Subjective ROS Limited/Unobtainable: Yes Objective Objective Last 24 Hour Vital Signs Date Time Temp Pulse Resp B/P (MAP) Pulse Ox O2 Delivery O2 Flow Rate FiO2 07/18/20 08:00 98.2 67 20 112/54 (73) 97 07/18/20 04:00 97.6 83 20 103/61 (75) 99 07/18/20 00:00 97.6 87 20 105/65 (78) 99 07/17/20 21:00 Nasal Cannula 3.0 07/17/20 20:00 97.8 85 20 110/63 (79) 98 07/17/20 16:00 98.0 76 18 107/55 (72) 98 07/17/20 12:00 98.0 72 18 110/59 (76) 97 Intake and Output 07/17/20 07/18/20 19:00 07:00 Intake Total 750 ml 1000 ml Output Total 650 ml Balance 750 ml 350 ml Intake Free Water 150 ml 450 ml Tube Feeding 600 ml 550 ml Output Urine Total 650 ml Current Medications Medications (Trade) Dose Ordered Sig/Alvarado Route PRN Reason Start Time Stop Time Status Last Admin Dose Admin Acetaminophen (Tylenol) 650 mg Q4H PRN ORAL MILD PAIN/TEMP > 101F 07/09/20 02:30 08/08/20 02:29 07/15/20 14:24 Ascorbic Acid (Vitamin C) 500 mg DAILY ORAL 07/09/20 09:00 08/08/20 08:59 07/18/20 09:46 Atorvastatin Calcium (Lipitor) 10 mg BEDTIME GT 07/09/20 21:00 10/07/20 20:59 07/17/20 21:21 Bisacodyl (Dulcolax) 10 mg DAILY PRN RECTAL Constipation 07/09/20 02:30 10/07/20 02:29 Clonidine HCl (Catapres Tab) 0.1 mg Q8H PRN GT HYPERTENSION 07/09/20 02:30 10/07/20 02:29 Dextrose (Dextrose 50%) 25 ml Q30M PRN IV Hypoglycemia 07/09/20 02:45 10/07/20 02:44 Dextrose (Dextrose 50%) 50 ml Q30M PRN IV Hypoglycemia 07/09/20 02:45 10/07/20 02:44 Enoxaparin Sodium (Lovenox) 40 mg Q12HR SUBQ 07/13/20 21:00 10/11/20 20:59 07/18/20 09:46 Insulin Aspart (NovoLOG) BEFORE MEALS AND HS SUBQ 07/09/20 06:30 10/07/20 06:29 07/11/20 17:04 Levetiracetam (Keppra) 500 mg Q12HR GT 07/09/20 09:00 08/08/20 08:59 07/18/20 09:46 Midodrine (Pro-Amatine) 10 mg Q8HR ORAL 07/11/20 16:00 10/09/20 15:59 07/18/20 05:35 Multivitamins Therapeutic (Therapeutic Multivitamin) 1 ea DAILY ORAL 07/09/20 09:00 08/08/20 08:59 07/18/20 09:46 Potassium Chloride (K-Dur) 20 meq TWICE A DAY GT 07/10/20 14:00 10/08/20 13:59 07/18/20 09:46 Laboratory Tests 07/17/20 19:56: POC Whole Blood Glucose 107H 07/18/20 05:32: POC Whole Blood Glucose 122H Height (Feet): 5 Height (Inches): 1.00 Weight (Pounds): 99 General Appearance: no apparent distress, lethargic Cardiovascular: normal rate Respiratory/Chest: decreased breath sounds Abdomen: soft Gabriele Honeycutt MD Jul 18, 2020 10:47
--- NOTE | 2020-07-18 11:25 | Surgery Progress Note ---
Surgery Progress Note Subjective Additional Comments no acute events comfortable stable labs noted exam unchanged dressings going well Objective Last 24 Hour Vital Signs Date Time Temp Pulse Resp B/P (MAP) Pulse Ox O2 Delivery O2 Flow Rate FiO2 07/18/20 09:00 Nasal Cannula 3.0 07/18/20 08:00 98.2 67 20 112/54 (73) 97 07/18/20 04:00 97.6 83 20 103/61 (75) 99 07/18/20 00:00 97.6 87 20 105/65 (78) 99 07/17/20 21:00 Nasal Cannula 3.0 07/17/20 20:00 97.8 85 20 110/63 (79) 98 07/17/20 16:00 98.0 76 18 107/55 (72) 98 07/17/20 12:00 98.0 72 18 110/59 (76) 97 I&O Intake and Output 07/17/20 07/18/20 19:00 07:00 Intake Total 750 ml 1000 ml Output Total 650 ml Balance 750 ml 350 ml Intake Free Water 150 ml 450 ml Tube Feeding 600 ml 550 ml Output Urine Total 650 ml Dressing: saturated Cardiovascular: RSR Respiratory: decreased breath sounds Abdomen: soft, non-tender, present bowel sounds, non-distended Extremities: no tenderness, no cyanosis Laboratory Tests Test 07/17/20 19:56 07/18/20 05:32 POC Whole Blood Glucose 107 MG/DL (74-106) H 122 MG/DL (74-106) H Plan Problems: (1) Fever (2) Leukocytosis Assessment & Plan: on abx id input appreciated wounds not infected nutrition (3) Tachycardia (4) Decubitus skin ulcer (5) Pyelonephritis (6) Malnutrition (7) Sepsis Assessment & Plan: ill appearing poor skin turgor leukocytosis anemia h/h low trending prbc prn Needs based on underweight, DM 35.5kg 30-40 kcals/kg [id number] total kcals 1.25-2 g protein/kg 44-71 g total protein 25-35ml/kcal mL/kg [id number] total fluid mLs NUTRITION DIAGNOSIS: Swallowing difficulty R/T dysphagia as evidenced by pt is Gtube dependent. ENTERAL NUTRITION RECOMMENDATIONS: Glucerna 1.2 @50ml x24 hrs to provide 1200ml, 1440 kcal, 72g pro, 966ml free H2O - As able rec carb control formula for h/o DM. - Start @30ml/hr for 6 hrs, advance as tolerated 10ml/hr q4-6 hrs to goal. - Flush per MD/ HOB over 30 degrees ADDITIONAL RECOMMENDATIONS: - Per SNF: 5'3" and 78lbs/35.45kg. - Check lytes daily, replete as needed - A1c for eval of glycemic control - Wound care: advanced per RN, f/up with WC RN. Add LINA BID w/ GT, Vit C 250mg BID (2) Decubitus skin ulcer Assessment & Plan: This is an emaciated pt whom presented on admission with Multiple Pressure Injuries. Unstageable Pressure Injury Sacrum (L)11cm x (W)10.5cm. Base of wound is 90% necrotic, surrounding 10% moist, erythematous borders. Edges adherent to base of wound. No odor or exudate noted. Unstageable Pressure Injury L trochanter(L)3.5cm x (W)5.5cm. Base of wound is 95% necrotic, 5% surrounding borders arleen. Edges adherent to base of wound. No odor or exudate noted.Periwound is pale. Non-Blanchable erythema without induration L Ischium. Non-Blanchable erythema without induration bony prominences of L Hip/L Trochanter/L Ischial tuberosity. DTPI L Heel(L)2.5cmx(W)2cm.Base of Pressure Injury is fluctuant, Maroon in colour with surrounding non-blanchable erythema. Non-Blanchable erythema without induration L Hallux (L)1cm x (W)2cm. DTPI R Heel (L)6cm x (W)8cm.Base of Pressure Injury is fluctuant and maroon in colour. Edges are adherent to base of Pressure Injury. Unstageable Pressure Injury dorsal R 1st metatarsal(L)0.8cm x (W)0.6cm.Base of wound is 100% necrotic with marginal erythema along borders . Edges adherent to base of wound.. Non-Blanchable erythema without induration distal/lateral R foot (L)1.5cm x (W)1.5cm. Non-Blanchable erythema without induration R Hallux. Tx.Plan: Cleanse Sacral wound with Saline. Apply Therahoney. Apply Moisture Barrier Paste periwound. Cover with Optifoam drsg. Change every 3 days and prn. Cleanse L Trochanteric wound with Saline.Apply Therhaoney.Apply Moisture Barrier paste Periwound. Cover with Optifoam drsg. Change every 3 days and prn. Apply Moisture Barrier Paste to R and L ischium. Cover each site with Optifoam drsg. Change every 3 days and prn. Cover R hip /R Trochanter with Optifoam drsgs. Change every 7 days and prn. Apply Cavilon Skin Barrier to R heel , R 1st metatarsal,R hallux, Distal /Lateral R foot. Cover each Pressure Injury with Optifoam drsg. Change every 7 days and prn. Apply Cavilon Skin Barrier o L Heel , L Hallux, Distal lateral L Foot . Cover each Pressure Injury with Optifoam drsg. Change every 7 days and prn. Reposition at least every 2hours or as tolerated. Off-load heels with Pillow. APM/SOLOMON Mattress Overlay. (3) UTI (urinary tract infection) (4) Pneumonia (5) Sepsis Assessment & Plan: leukocytosis lactic acidosis malnutrition underweight bmi 13 micro noted on abx as per ID cont abx wounds unlikely etiology will follow with local care and evaluation to ensure improving thank you There is a slight degree of image degradation due to motion artifact. The right upper lobe is largely clear following may be some interstitial septal thickening in the apex. The right middle lobe is clear. The right lower lobe demonstrates some atelectasis at the right lung base. There is also a focal 6 mm nodular opacity, image 50 series 5. There is a vague mosaic attenuation pattern. Left upper lobe demonstrates scattered areas of mosaic attenuation superiorly image 10 of series 5 demonstrates a 3 mm left upper lobe nodule.. Irregular consolidative opacities are seen in the inferior left upper lobe. More extensive consolidation in a patchy and irregular distribution are seen in the left lower lobe. There is a small left pleural effusion. The heart is upper limits of normal in size. The ascending thoracic aorta is mildly ectatic. No mediastinal or hilar mass or adenopathy. Unremarkable. No axillary or chest wall mass or adenopathy demonstrated. The bones are unremarkable except for minimal degenerative spondylosis changes and slight anterior bowing of the sternum. The included lung bases demonstrate a gastrostomy which appears well-positioned. There is trace ascites Impression: Opacities in the left lower lobe and also to a lesser extent in the left upper lobe and minimally in the right lower lobe. Appearance is consistent with consolidation rather than mass. Most likely represents pneumonia, appearance nonspecific as regards etiology. Patchy pulmonary edema also possible, among other possibilities Small left pleural effusion Bilateral small nodules, as described. No further follow-up necessary if there are no risk factors for lung carcinoma. There are significant risk factors, then short interval follow-up CT in 6-12 months is recommended Trace ascites (8) UTI (urinary tract infection) (9) Pneumonia (10) PEG (percutaneous endoscopic gastrostomy) adjustment/replacement/removal Chao Ovalle Jul 18, 2020 11:25
[2020-07-18 12:00] VITALS: BP 105/57
[2020-07-18 16:00] VITALS: BP 109/62
--- NOTE | 2020-07-18 18:03 | General Progress Note ---
Subjective Constitutional: Reports: no symptoms HEENT: Reports: no symptoms Cardiovascular: Reports: no symptoms Respiratory: Reports: no symptoms Gastrointestinal/Abdominal: Reports: no symptoms Genitourinary: Reports: no symptoms Neurologic/Psychiatric: Reports: no symptoms Endocrine: Reports: no symptoms Hematologic/Lymphatic: Reports: no symptoms Allergies: Coded Allergies: ERYTHROMYCIN BASE (Verified Allergy, Unknown, 11/12/16) Objective Last 24 Hour Vital Signs Date Time Temp Pulse Resp B/P (MAP) Pulse Ox O2 Delivery O2 Flow Rate FiO2 07/18/20 16:00 97.6 69 20 109/62 (78) 99 07/18/20 12:00 98.2 72 20 105/57 (73) 98 07/18/20 09:00 Nasal Cannula 3.0 07/18/20 08:00 98.2 67 20 112/54 (73) 97 07/18/20 04:00 97.6 83 20 103/61 (75) 99 07/18/20 00:00 97.6 87 20 105/65 (78) 99 07/17/20 21:00 Nasal Cannula 3.0 07/17/20 20:00 97.8 85 20 110/63 (79) 98 Intake and Output 07/17/20 07/18/20 19:00 07:00 Intake Total 750 ml 1050 ml Output Total 650 ml Balance 750 ml 400 ml Intake Free Water 150 ml 450 ml Tube Feeding 600 ml 600 ml Output Urine Total 650 ml Laboratory Tests 07/17/20 19:56: POC Whole Blood Glucose 107H 07/18/20 05:32: POC Whole Blood Glucose 122H Height (Feet): 5 Height (Inches): 1.00 Weight (Pounds): 99 General Appearance: no apparent distress, lethargic EENT: normal ENT inspection Neck: supple Cardiovascular: normal rate, regular rhythm, no gallop/murmur, no JVD Respiratory/Chest: lungs clear, normal breath sounds, no respiratory distress, no accessory muscle use Abdomen: normal bowel sounds, non tender, soft, no organomegaly, no mass Extremities: non-tender, normal inspection Assessment/Plan Status Narrative Patient is afebrile hemodynamically stable eyes are closed respond only to tactile stimuli she has been now off antibiotic for 2 days she did not did not develop fever tachycardia she is she is being signed to replace search as her previous ECF do not accept her she remained in stable condition ASSA RIMA MD Rima,Assa MD Jul 18, 2020 18:02
[2020-07-18 20:00] VITALS: BP 122/83
[2020-07-19] VITALS: BP 99/51
[2020-07-19 04:00] VITALS: BP 111/56
[2020-07-19] MEDS: Midodrine 10mg tab ORAL SCH ×3 (05:47→21:10)
[2020-07-19] MEDS: NovoLOG Insulin Flexpen SUBQ SCH ×4 (06:30→21:00)
[2020-07-19 08:00] VITALS: BP 107/58
[2020-07-19] MEDS: Multivitamin w/Minerals tab ORAL SCH (08:11)
[2020-07-19] MEDS: levETIRAcetam 500mg/5ml Liquid GT SCH ×2 (08:11→21:10)
[2020-07-19] MEDS: Ascorbic Acid 500mg tab ORAL SCH (08:11)
[2020-07-19] MEDS: Enoxaparin 40mg Inj SUBQ SCH ×2 (08:13→21:10)
[2020-07-19 09:31] LABS: ALANINE AMINOTRANSFERASE 18 U/L (12-78); ALBUMIN 2.1 G/DL (3.4-5.0); ALBUMIN/GLOBULIN RATIO 0.4 (1.0-2.7); ALKALINE PHOSPHATASE 73 U/L (46-116); ANION GAP 5 mmol/L (5-15); ASPARTATE AMINO TRANSFERASE 15 U/L (15-37); BILIRUBIN,TOTAL 0.2 MG/DL (0.2-1.0); BLOOD UREA NITROGEN 20 mg/dL (7-18); CALCIUM 9.2 MG/DL (8.5-10.1); CARBON DIOXIDE 30 MMOL/L (21-32); CHLORIDE 101 MMOL/L (98-107); CREATININE 0.3 MG/DL (0.55-1.30); SODIUM 136 MMOL/L (136-145)
[2020-07-19 09:40] LABS: EOSINOPHILS % (AUTO) 1.1 % (0.0-3.0); HEMATOCRIT 28.6 % (37.0-47.0); HEMOGLOBIN 9.5 G/DL (12.0-16.0); LYMPHOCYTES % (AUTO) 12.4 % (20.0-45.0); MEAN CORPUSCULAR VOLUME 87 FL (80-99); MONOCYTES % (AUTO) 5.1 % (1.0-10.0); NEUTROPHILS % (AUTO) 80.4 % (45.0-75.0); PLATELET COUNT 366 K/UL (150-450); RED BLOOD COUNT 3.29 M/UL (4.20-5.40); RED CELL DISTRIBUTION WIDTH 16.1 % (11.6-14.8); WHITE BLOOD COUNT 11.2 K/UL (4.8-10.8)
--- NOTE | 2020-07-19 10:05 | Hematology/Onc Progress Note ---
Assessment/Plan Assessment/Plan Assessment and Recs # Sepsis due to Pyelonephritis --> septic protocol started --> is on ivfs --> abx as per ID ceftriaxone-->zosyn --> imaging noted --> urine culture sens and spec as needed # Right lower extremity common femoral deep venous thrombosis --> anticoagulation has been started-->lovenox sq --> does have Elevated ddimer # Anemia due to chronic disease --> panel as needed -> hgb 10.7-->8.8-->9.3-->9.5 --> transfuse prn # Leukocytosis due to infection --> per ID abx # Fever with flu like symptoms --> r/o covid19 --> due to above # HL --> lipitor and asa # Tachycardia --> ivfs should improve # Dvt ppx lovenox sq Appreciate consultation and iraida RN Subjective HEENT: Denies: no symptoms, eye pain, blurred vision, tearing, double vision, ear pain, ear discharge, nose pain, nose congestion, throat pain, throat swelling, mouth pain, mouth swelling, other Cardiovascular: Denies: no symptoms, chest pain, edema, irregular heart rate, lightheadedness, palpitations, syncope, other Respiratory: Denies: no symptoms, cough, shortness of breath, SOB with excertion, SOB at rest, sputum, wheezing, other Gastrointestinal/Abdominal: Denies: no symptoms, abdomen distended, abdominal pain, black stools, tarry stools, blood in stool, constipated, diarrhea, difficulty swallowing, nausea, poor appetite, poor fluid intake, rectal bleeding, vomiting, other Allergies: Coded Allergies: ERYTHROMYCIN BASE (Verified Allergy, Unknown, 11/12/16) All Systems: reviewed and negative except above Subjective 07/13 with valderrama, gt, nc, no bleeding, on abx 07/14 labs ordered, valderrama, nc, no new events, cbc pending 07/15 nv, no new changes, no bleeding, valderrama and nc, labs reviewed 07/16 nv, no bleeding, meds reviewed, no new changes, no bleeding 07/17: labs reviewed, h/h stable, dc planning continues 07/19 nv, unchanged, no new events, no bleeding, labs noted Objective Objective Current Medications Medications (Trade) Dose Ordered Sig/Alvarado Route PRN Reason Start Time Stop Time Status Last Admin Dose Admin Acetaminophen (Tylenol) 650 mg Q4H PRN ORAL MILD PAIN/TEMP > 101F 07/09/20 02:30 08/08/20 02:29 07/15/20 14:24 Ascorbic Acid (Vitamin C) 500 mg DAILY ORAL 07/09/20 09:00 08/08/20 08:59 07/19/20 08:11 Atorvastatin Calcium (Lipitor) 10 mg BEDTIME GT 07/09/20 21:00 10/07/20 20:59 07/18/20 21:30 Bisacodyl (Dulcolax) 10 mg DAILY PRN RECTAL Constipation 07/09/20 02:30 10/07/20 02:29 Clonidine HCl (Catapres Tab) 0.1 mg Q8H PRN GT HYPERTENSION 07/09/20 02:30 10/07/20 02:29 Dextrose (Dextrose 50%) 25 ml Q30M PRN IV Hypoglycemia 07/09/20 02:45 10/07/20 02:44 Dextrose (Dextrose 50%) 50 ml Q30M PRN IV Hypoglycemia 07/09/20 02:45 10/07/20 02:44 Enoxaparin Sodium (Lovenox) 40 mg Q12HR SUBQ 07/13/20 21:00 10/11/20 20:59 07/19/20 08:13 Insulin Aspart (NovoLOG) BEFORE MEALS AND HS SUBQ 07/09/20 06:30 10/07/20 06:29 07/11/20 17:04 Levetiracetam (Keppra) 500 mg Q12HR GT 07/09/20 09:00 08/08/20 08:59 07/19/20 08:11 Midodrine (Pro-Amatine) 10 mg Q8HR ORAL 07/11/20 16:00 10/09/20 15:59 07/19/20 05:47 Multivitamins Therapeutic (Therapeutic Multivitamin) 1 ea DAILY ORAL 07/09/20 09:00 08/08/20 08:59 07/19/20 08:11 Potassium Chloride (K-Dur) 20 meq TWICE A DAY GT 07/10/20 14:00 10/08/20 13:59 07/19/20 08:11 Last 24 Hour Vital Signs Date Time Temp Pulse Resp B/P (MAP) Pulse Ox O2 Delivery O2 Flow Rate FiO2 07/19/20 08:00 98.0 72 18 107/58 (74) 99 07/19/20 04:00 97.2 76 19 111/56 (74) 95 07/19/20 00:00 97.0 72 18 99/51 (67) 100 07/18/20 21:00 Nasal Cannula 3.0 07/18/20 20:00 97.9 82 18 122/83 (96) 98 07/18/20 16:00 97.6 69 20 109/62 (78) 99 07/18/20 12:00 98.2 72 20 105/57 (73) 98 07/18/20 09:00 Nasal Cannula 3.0 07/18/20 08:00 98.2 67 20 112/54 (73) 97 07/18/20 04:00 97.6 83 20 103/61 (75) 99 07/18/20 00:00 97.6 87 20 105/65 (78) 99 07/17/20 21:00 Nasal Cannula 3.0 07/17/20 20:00 97.8 85 20 110/63 (79) 98 07/17/20 16:00 98.0 76 18 107/55 (72) 98 07/17/20 12:00 98.0 72 18 110/59 (76) 97 Intake and Output0 07/18/20 07/19/20 19:00 07:00 Intake Total 960 ml 700 ml Output Total 600 ml Balance 960 ml 100 ml Intake Free Water 360 ml 150 ml Tube Feeding 600 ml 550 ml Output Urine Total 600 ml # Bowel Movements 1 Labs Test 07/16/20 11:41 07/16/20 16:26 07/16/20 20:20 07/17/20 05:13 POC Whole Blood Glucose 102 MG/DL (74-106) 117 MG/DL (74-106) 120 MG/DL (74-106) Test 07/17/20 05:55 07/17/20 06:18 07/17/20 19:56 07/18/20 05:32 White Blood Count 7.6 K/UL (4.8-10.8) Red Blood Count 3.13 M/UL (4.20-5.40) Hemoglobin 9.3 G/DL (12.0-16.0) Hematocrit 27.7 % (37.0-47.0) Mean Corpuscular Volume 88 FL (80-99) Mean Corpuscular Hemoglobin 29.6 PG (27.0-31.0) Mean Corpuscular Hemoglobin Concent 33.6 G/DL (32.0-36.0) Red Cell Distribution Width 16.0 % (11.6-14.8) Platelet Count 327 K/UL (150-450) Mean Platelet Volume 6.7 FL (6.5-10.1) Neutrophils (%) (Auto) 71.8 % (45.0-75.0) Lymphocytes (%) (Auto) 20.0 % (20.0-45.0) Monocytes (%) (Auto) 6.2 % (1.0-10.0) Eosinophils (%) (Auto) 1.3 % (0.0-3.0) Basophils (%) (Auto) 0.7 % (0.0-2.0) Sodium Level 138 MMOL/L (136-145) Potassium Level 4.0 MMOL/L (3.5-5.1) Chloride Level 103 MMOL/L (98-107) Carbon Dioxide Level 31 MMOL/L (21-32) Anion Gap 4 mmol/L (5-15) Blood Urea Nitrogen 19 mg/dL (7-18) Creatinine 0.5 MG/DL (0.55-1.30) Estimat Glomerular Filtration Rate > 60 mL/min (>60) Glucose Level 116 MG/DL (74-106) Calcium Level 9.0 MG/DL (8.5-10.1) POC Whole Blood Glucose 109 MG/DL (74-106) 107 MG/DL (74-106) 122 MG/DL (74-106) Test 07/19/20 05:37 07/19/20 08:35 White Blood Count 11.2 K/UL (4.8-10.8) Red Blood Count 3.29 M/UL (4.20-5.40) Hemoglobin 9.5 G/DL (12.0-16.0) Hematocrit 28.6 % (37.0-47.0) Mean Corpuscular Volume 87 FL (80-99) Mean Corpuscular Hemoglobin 28.9 PG (27.0-31.0) Mean Corpuscular Hemoglobin Concent 33.3 G/DL (32.0-36.0) Red Cell Distribution Width 16.1 % (11.6-14.8) Platelet Count 366 K/UL (150-450) Mean Platelet Volume 6.2 FL (6.5-10.1) Neutrophils (%) (Auto) 80.4 % (45.0-75.0) Lymphocytes (%) (Auto) 12.4 % (20.0-45.0) Monocytes (%) (Auto) 5.1 % (1.0-10.0) Eosinophils (%) (Auto) 1.1 % (0.0-3.0) Basophils (%) (Auto) 1.0 % (0.0-2.0) Sodium Level 136 MMOL/L (136-145) Potassium Level 4.0 MMOL/L (3.5-5.1) Chloride Level 101 MMOL/L (98-107) Carbon Dioxide Level 30 MMOL/L (21-32) Anion Gap 5 mmol/L (5-15) Blood Urea Nitrogen 20 mg/dL (7-18) Creatinine 0.3 MG/DL (0.55-1.30) Estimat Glomerular Filtration Rate > 60 mL/min (>60) Glucose Level 121 MG/DL (74-106) Calcium Level 9.2 MG/DL (8.5-10.1) Phosphorus Level 3.0 MG/DL (2.5-4.9) Magnesium Level 2.2 MG/DL (1.8-2.4) Total Bilirubin 0.2 MG/DL (0.2-1.0) Aspartate Amino Transf (AST/SGOT) 15 U/L (15-37) Alanine Aminotransferase (ALT/SGPT) 18 U/L (12-78) Alkaline Phosphatase 73 U/L (46-116) Total Protein 7.4 G/DL (6.4-8.2) Albumin 2.1 G/DL (3.4-5.0) Globulin 5.3 g/dL Albumin/Globulin Ratio 0.4 (1.0-2.7) Height (Feet): 5 Height (Inches): 1.00 Weight (Pounds): 99 Objective Sp02 EP Interpretation: reviewed, normal General Appearance: no apparent distress, non-verbal ++contracted Head: normocephalic, atraumatic ENT: hearing grossly normal, no angioedema Respiratory: chest non-tender, lungs clear, normal breath sounds,++2l Nc Cardiovascular: no edema, tachycardia Gastrointestinal: normal bowel sounds, non tender, soft, ++gt Rectal: deferred Musculoskeletal: normal inspection Neurologic: alert, motor strength/tone normal, no focal defects Skin: other - See RN skin exam. Lymphatic: no adenopathy Gu: valderrama+++ Nate Begum MD Jul 19, 2020 10:05
--- NOTE | 2020-07-19 10:51 | Infectious Diseases Prog Note ---
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 but with fever at SNF sourcer Lymphopenia Hypoxic w/ NC O2 requirement, r/o PNA 07/08 BCx NTD UA+, UCx <10k GNR COVID rapid test neg, PCR neg CXR: No acute process 07/14 UCx +yeast (colonizer) +RLE DVT on US 07/09 Elevated LFTs 67 / 120 Abd TTP 06/29 Abd US wnl Acute hep panel neg Cr 0.5 HIV screen neg PMH: DM CHF Dementia SNF resident Plan: OK to d/c to SNF from ID standpoint Tx of RLE DVT per primary, on lovenox BID Consider CTA chest to r/o PE, could be cause of persistent leukocytosis, hypoxia Trend temp curve Trend WBC, improving 07/17 SP Zosyn #7 07/10 SP CTX #2 Monitor CBC/CMP Monitor temp curve, hemodynamics Monitor resp status D/w RN Thank you for this consult. [facility] will continue to follow. Subjective Allergies: Coded Allergies: ERYTHROMYCIN BASE (Verified Allergy, Unknown, 11/12/16) AF WBC 11 NAD in bed Not interactive Objective Last 24 Hour Vital Signs Date Time Temp Pulse Resp B/P (MAP) Pulse Ox O2 Delivery O2 Flow Rate FiO2 07/19/20 08:00 98.0 72 18 107/58 (74) 99 07/19/20 04:00 97.2 76 19 111/56 (74) 95 07/19/20 00:00 97.0 72 18 99/51 (67) 100 07/18/20 21:00 Nasal Cannula 3.0 07/18/20 20:00 97.9 82 18 122/83 (96) 98 07/18/20 16:00 97.6 69 20 109/62 (78) 99 07/18/20 12:00 98.2 72 20 105/57 (73) 98 Height (Feet): 5 Height (Inches): 1.00 Weight (Pounds): 99 Gen: NAD HEENT: NCAT Pulm: BL chest rise Abd: Non-distended Ext: No c/c/e Skin: No visible rashes Neuro: Awake Laboratory Tests Test 07/19/20 05:37 07/19/20 08:35 POC Whole Blood Glucose Pending White Blood Count 11.2 K/UL (4.8-10.8) H Red Blood Count 3.29 M/UL (4.20-5.40) L Hemoglobin 9.5 G/DL (12.0-16.0) L Hematocrit 28.6 % (37.0-47.0) L Mean Corpuscular Volume 87 FL (80-99) Mean Corpuscular Hemoglobin 28.9 PG (27.0-31.0) Mean Corpuscular Hemoglobin Concent 33.3 G/DL (32.0-36.0) Red Cell Distribution Width 16.1 % (11.6-14.8) H Platelet Count 366 K/UL (150-450) Mean Platelet Volume 6.2 FL (6.5-10.1) L Neutrophils (%) (Auto) 80.4 % (45.0-75.0) H Lymphocytes (%) (Auto) 12.4 % (20.0-45.0) L Monocytes (%) (Auto) 5.1 % (1.0-10.0) Eosinophils (%) (Auto) 1.1 % (0.0-3.0) Basophils (%) (Auto) 1.0 % (0.0-2.0) Sodium Level 136 MMOL/L (136-145) Potassium Level 4.0 MMOL/L (3.5-5.1) Chloride Level 101 MMOL/L (98-107) Carbon Dioxide Level 30 MMOL/L (21-32) Anion Gap 5 mmol/L (5-15) Blood Urea Nitrogen 20 mg/dL (7-18) H Creatinine 0.3 MG/DL (0.55-1.30) L Estimat Glomerular Filtration Rate > 60 mL/min (>60) Glucose Level 121 MG/DL (74-106) H Calcium Level 9.2 MG/DL (8.5-10.1) Phosphorus Level 3.0 MG/DL (2.5-4.9) Magnesium Level 2.2 MG/DL (1.8-2.4) Total Bilirubin 0.2 MG/DL (0.2-1.0) Aspartate Amino Transf (AST/SGOT) 15 U/L (15-37) Alanine Aminotransferase (ALT/SGPT) 18 U/L (12-78) Alkaline Phosphatase 73 U/L (46-116) Total Protein 7.4 G/DL (6.4-8.2) Albumin 2.1 G/DL (3.4-5.0) L Globulin 5.3 g/dL Albumin/Globulin Ratio 0.4 (1.0-2.7) L Current Medications Medications (Trade) Dose Ordered Sig/Alvarado Route PRN Reason Start Time Stop Time Status Last Admin Dose Admin Acetaminophen (Tylenol) 650 mg Q4H PRN ORAL MILD PAIN/TEMP > 101F 07/09/20 02:30 08/08/20 02:29 07/15/20 14:24 Ascorbic Acid (Vitamin C) 500 mg DAILY ORAL 07/09/20 09:00 08/08/20 08:59 07/19/20 08:11 Atorvastatin Calcium (Lipitor) 10 mg BEDTIME GT 07/09/20 21:00 10/07/20 20:59 07/18/20 21:30 Bisacodyl (Dulcolax) 10 mg DAILY PRN RECTAL Constipation 07/09/20 02:30 10/07/20 02:29 Clonidine HCl (Catapres Tab) 0.1 mg Q8H PRN GT HYPERTENSION 07/09/20 02:30 10/07/20 02:29 Dextrose (Dextrose 50%) 25 ml Q30M PRN IV Hypoglycemia 07/09/20 02:45 10/07/20 02:44 Dextrose (Dextrose 50%) 50 ml Q30M PRN IV Hypoglycemia 07/09/20 02:45 10/07/20 02:44 Enoxaparin Sodium (Lovenox) 40 mg Q12HR SUBQ 07/13/20 21:00 10/11/20 20:59 07/19/20 08:13 Insulin Aspart (NovoLOG) BEFORE MEALS AND HS SUBQ 07/09/20 06:30 10/07/20 06:29 07/11/20 17:04 Levetiracetam (Keppra) 500 mg Q12HR GT 07/09/20 09:00 08/08/20 08:59 07/19/20 08:11 Midodrine (Pro-Amatine) 10 mg Q8HR ORAL 07/11/20 16:00 10/09/20 15:59 07/19/20 05:47 Multivitamins Therapeutic (Therapeutic Multivitamin) 1 ea DAILY ORAL 07/09/20 09:00 08/08/20 08:59 07/19/20 08:11 Potassium Chloride (K-Dur) 20 meq TWICE A DAY GT 07/10/20 14:00 10/08/20 13:59 07/19/20 08:11 Beth Marsh M.D. Jul 19, 2020 10:51
[2020-07-19 12:00] VITALS: BP 102/61
--- NOTE | 2020-07-19 12:28 | General Progress Note ---
Subjective Constitutional: Reports: no symptoms HEENT: Reports: no symptoms Cardiovascular: Reports: no symptoms Respiratory: Reports: no symptoms Gastrointestinal/Abdominal: Reports: no symptoms Genitourinary: Reports: no symptoms Neurologic/Psychiatric: Reports: no symptoms Endocrine: Reports: no symptoms Hematologic/Lymphatic: Reports: no symptoms Allergies: Coded Allergies: ERYTHROMYCIN BASE (Verified Allergy, Unknown, 11/12/16) Objective Last 24 Hour Vital Signs Date Time Temp Pulse Resp B/P (MAP) Pulse Ox O2 Delivery O2 Flow Rate FiO2 07/19/20 09:00 Nasal Cannula 3.0 07/19/20 08:00 98.0 72 18 107/58 (74) 99 07/19/20 04:00 97.2 76 19 111/56 (74) 95 07/19/20 00:00 97.0 72 18 99/51 (67) 100 07/18/20 21:00 Nasal Cannula 3.0 07/18/20 20:00 97.9 82 18 122/83 (96) 98 07/18/20 16:00 97.6 69 20 109/62 (78) 99 Intake and Output 07/18/20 07/19/20 19:00 07:00 Intake Total 960 ml 700 ml Output Total 600 ml Balance 960 ml 100 ml Intake Free Water 360 ml 150 ml Tube Feeding 600 ml 550 ml Output Urine Total 600 ml # Bowel Movements 1 Laboratory Tests 07/19/20 05:37: POC Whole Blood Glucose [Pending] 07/19/20 08:35: White Blood Count 11.2H, Red Blood Count 3.29L, Hemoglobin 9.5L, Hematocrit 28.6L, Mean Corpuscular Volume 87, Mean Corpuscular Hemoglobin 28.9, Mean Corpuscular Hemoglobin Concent 33.3, Red Cell Distribution Width 16.1H, Platelet Count 366, Mean Platelet Volume 6.2L, Neutrophils (%) (Auto) 80.4H, Lymphocytes (%) (Auto) 12.4L, Monocytes (%) (Auto) 5.1, Eosinophils (%) (Auto) 1.1, Basophils (%) (Auto) 1.0, Sodium Level 136, Potassium Level 4.0, Chloride Level 101, Carbon Dioxide Level 30, Anion Gap 5, Blood Urea Nitrogen 20H, Creatinine 0.3L, Estimat Glomerular Filtration Rate > 60, Glucose Level 121H, Calcium Level 9.2, Phosphorus Level 3.0, Magnesium Level 2.2, Total Bilirubin 0.2, Aspartate Amino Transf (AST/SGOT) 15, Alanine Aminotransferase (ALT/SGPT) 18, Alkaline Phosphatase 73, Total Protein 7.4, Albumin 2.1L, Globulin 5.3, Albumin/Globulin Ratio 0.4L 07/19/20 11:05: POC Whole Blood Glucose 118H Height (Feet): 5 Height (Inches): 1.00 Weight (Pounds): 99 General Appearance: no apparent distress, lethargic EENT: normal ENT inspection Neck: supple Cardiovascular: normal rate, regular rhythm, no gallop/murmur, no JVD Respiratory/Chest: lungs clear, normal breath sounds, no accessory muscle use, respiratory distress Abdomen: normal bowel sounds, non tender, soft, no organomegaly, no mass Extremities: non-tender Neurologic: unresponsive Skin: warm/dry Assessment/Plan Status Narrative Patient is afebrile hemodynamically stable without tachycardia off antibiotic clinically she has been stable for the last several days WBC increased today from normal to the 11,000 however her physical exam is unchanged patient is on list for search for a new ECF is a previous history of did not accept the patient laboratory tests will be done in a.. Gale Leija Md, MD Jul 19, 2020 12:28
--- NOTE | 2020-07-19 13:59 | Surgery Progress Note ---
Surgery Progress Note Subjective Additional Comments tolerating tf on side air mattress improving Objective Last 24 Hour Vital Signs Date Time Temp Pulse Resp B/P (MAP) Pulse Ox O2 Delivery O2 Flow Rate FiO2 07/19/20 12:00 97.3 70 18 102/61 (75) 100 07/19/20 09:00 Nasal Cannula 3.0 07/19/20 08:00 98.0 72 18 107/58 (74) 99 07/19/20 04:00 97.2 76 19 111/56 (74) 95 07/19/20 00:00 97.0 72 18 99/51 (67) 100 07/18/20 21:00 Nasal Cannula 3.0 07/18/20 20:00 97.9 82 18 122/83 (96) 98 07/18/20 16:00 97.6 69 20 109/62 (78) 99 I&O Intake and Output 07/18/20 07/19/20 19:00 07:00 Intake Total 960 ml 700 ml Output Total 600 ml Balance 960 ml 100 ml Intake Free Water 360 ml 150 ml Tube Feeding 600 ml 550 ml Output Urine Total 600 ml # Bowel Movements 1 Dressing: saturated Cardiovascular: RSR Respiratory: decreased breath sounds Abdomen: soft, non-tender, present bowel sounds, other, non-distended Extremities: no edema, no tenderness, no cyanosis Laboratory Tests Test 07/19/20 05:37 07/19/20 08:35 07/19/20 11:05 POC Whole Blood Glucose Pending 118 MG/DL (74-106) H White Blood Count 11.2 K/UL (4.8-10.8) H Red Blood Count 3.29 M/UL (4.20-5.40) L Hemoglobin 9.5 G/DL (12.0-16.0) L Hematocrit 28.6 % (37.0-47.0) L Mean Corpuscular Volume 87 FL (80-99) Mean Corpuscular Hemoglobin 28.9 PG (27.0-31.0) Mean Corpuscular Hemoglobin Concent 33.3 G/DL (32.0-36.0) Red Cell Distribution Width 16.1 % (11.6-14.8) H Platelet Count 366 K/UL (150-450) Mean Platelet Volume 6.2 FL (6.5-10.1) L Neutrophils (%) (Auto) 80.4 % (45.0-75.0) H Lymphocytes (%) (Auto) 12.4 % (20.0-45.0) L Monocytes (%) (Auto) 5.1 % (1.0-10.0) Eosinophils (%) (Auto) 1.1 % (0.0-3.0) Basophils (%) (Auto) 1.0 % (0.0-2.0) Sodium Level 136 MMOL/L (136-145) Potassium Level 4.0 MMOL/L (3.5-5.1) Chloride Level 101 MMOL/L (98-107) Carbon Dioxide Level 30 MMOL/L (21-32) Anion Gap 5 mmol/L (5-15) Blood Urea Nitrogen 20 mg/dL (7-18) H Creatinine 0.3 MG/DL (0.55-1.30) L Estimat Glomerular Filtration Rate > 60 mL/min (>60) Glucose Level 121 MG/DL (74-106) H Calcium Level 9.2 MG/DL (8.5-10.1) Phosphorus Level 3.0 MG/DL (2.5-4.9) Magnesium Level 2.2 MG/DL (1.8-2.4) Total Bilirubin 0.2 MG/DL (0.2-1.0) Aspartate Amino Transf (AST/SGOT) 15 U/L (15-37) Alanine Aminotransferase (ALT/SGPT) 18 U/L (12-78) Alkaline Phosphatase 73 U/L (46-116) Total Protein 7.4 G/DL (6.4-8.2) Albumin 2.1 G/DL (3.4-5.0) L Globulin 5.3 g/dL Albumin/Globulin Ratio 0.4 (1.0-2.7) L Plan Problems: (1) Fever (2) Leukocytosis Assessment & Plan: on abx id input appreciated wounds not infected nutrition (3) Tachycardia (4) Decubitus skin ulcer (5) Pyelonephritis (6) Malnutrition (7) Sepsis Assessment & Plan: ill appearing poor skin turgor leukocytosis anemia h/h low trending prbc prn Needs based on underweight, DM 35.5kg 30-40 kcals/kg [id number] total kcals 1.25-2 g protein/kg 44-71 g total protein 25-35ml/kcal mL/kg [id number] total fluid mLs NUTRITION DIAGNOSIS: Swallowing difficulty R/T dysphagia as evidenced by pt is Gtube dependent. ENTERAL NUTRITION RECOMMENDATIONS: Glucerna 1.2 @50ml x24 hrs to provide 1200ml, 1440 kcal, 72g pro, 966ml free H2O - As able rec carb control formula for h/o DM. - Start @30ml/hr for 6 hrs, advance as tolerated 10ml/hr q4-6 hrs to goal. - Flush per MD/ HOB over 30 degrees ADDITIONAL RECOMMENDATIONS: - Per SNF: 5'3" and 78lbs/35.45kg. - Check lytes daily, replete as needed - A1c for eval of glycemic control - Wound care: advanced per RN, f/up with WC RN. Add LINA BID w/ GT, Vit C 250mg BID (2) Decubitus skin ulcer Assessment & Plan: This is an emaciated pt whom presented on admission with Multiple Pressure Injuries. Unstageable Pressure Injury Sacrum (L)11cm x (W)10.5cm. Base of wound is 90% necrotic, surrounding 10% moist, erythematous borders. Edges adherent to base of wound. No odor or exudate noted. Unstageable Pressure Injury L trochanter(L)3.5cm x (W)5.5cm. Base of wound is 95% necrotic, 5% surrounding borders arleen. Edges adherent to base of wound. No odor or exudate noted.Periwound is pale. Non-Blanchable erythema without induration L Ischium. Non-Blanchable erythema without induration bony prominences of L Hip/L Troch anter/L Ischial tuberosity. DTPI L Heel(L)2.5cmx(W)2cm.Base of Pressure Injury is fluctuant, Maroon in colour with surrounding non-blanchable erythema. Non-Blanchable erythema without induration L Hallux (L)1cm x (W)2cm. DTPI R Heel (L)6cm x (W)8cm.Base of Pressure Injury is fluctuant and maroon in colour. Edges are adherent to base of Pressure Injury. Unstageable Pressure Injury dorsal R 1st metatarsal(L)0.8cm x (W)0.6cm.Base of wound is 100% necrotic with marginal erythema along borders . Edges adherent to base of wound.. Non-Blanchable erythema without induration distal/lateral R foot (L)1.5cm x (W)1.5cm. Non-Blanchable erythema without induration R Hallux. Tx.Plan: Cleanse Sacral wound with Saline. Apply Therahoney. Apply Moisture Barrier Paste periwound. Cover with Optifoam drsg. Change every 3 days and prn. Cleanse L Trochanteric wound with Saline.Apply Therhaoney.Apply Moisture Barrier paste Periwound. Cover with Optifoam drsg. Change every 3 days and prn. Apply Moisture Barrier Paste to R and L ischium. Cover each site with Optifoam drsg. Change every 3 days and prn. Cover R hip /R Trochanter with Optifoam drsgs. Change every 7 days and prn. Apply Cavilon Skin Barrier to R heel , R 1st metatarsal,R hallux, Distal /Lateral R foot. Cover each Pressure Injury with Optifoam drsg. Change every 7 days and prn. Apply Cavilon Skin Barrier o L Heel , L Hallux, Distal lateral L Foot . Cover each Pressure Injury with Optifoam drsg. Change every 7 days and prn. Reposition at least every 2hours or as tolerated. Off-load heels with Pillow. APM/SOLOMON Mattress Overlay. (3) UTI (urinary tract infection) (4) Pneumonia (5) Sepsis Assessment & Plan: leukocytosis lactic acidosis malnutrition underweight bmi 13 micro noted on abx as per ID cont abx wounds unlikely etiology will follow with local care and evaluation to ensure improving thank you There is a slight degree of image degradation due to motion artifact. The right upper lobe is largely clear following may be some interstitial septal thickening in the apex. The right middle lobe is clear. The right lower lobe demonstrates some atelectasis at the right lung base. There is also a focal 6 mm nodular opacity, image 50 series 5. There is a vague mosaic attenuation pattern. Left upper lobe demonstrates scattered areas of mosaic attenuation superiorly image 10 of series 5 demonstrates a 3 mm left upper lobe nodule.. Irregular consolidative opacities are seen in the inferior left upper lobe. More extensive consolidation in a patchy and irregular distribution are seen in the left lower lobe. There is a small left pleural effusion. The heart is upper limits of normal in size. The ascending thoracic aorta is mildly ectatic. No mediastinal or hilar mass or adenopathy. Unremarkable. No axillary or chest wall mass or adenopathy demonstrated. The bones are unremarkable except for minimal degenerative spondylosis changes and slight anterior bowing of the sternum. The included lung bases demonstrate a gastrostomy which appears well-positioned. There is trace ascites Impression: Opacities in the left lower lobe and also to a lesser extent in the left upper lobe and minimally in the right lower lobe. Appearance is consistent with consolidation rather than mass. Most likely represents pneumonia, appearance nonspecific as regards etiology. Patchy pulmonary edema also possible, among other possibilities Small left pleural effusion Bilateral small nodules, as described. No further follow-up necessary if there are no risk factors for lung carcinoma. There are significant risk factors, then short interval follow-up CT in 6-12 months is recommended Trace ascites (8) UTI (urinary tract infection) (9) Pneumonia (10) PEG (percutaneous endoscopic gastrostomy) adjustment/replacement/removal Chao Ovalle Jul 19, 2020 13:59
[2020-07-19 16:00] VITALS: BP 113/65
--- NOTE | 2020-07-19 16:18 | Nephrology Progress Note ---
Assessment/Plan Problem List: (1) Dehydration (2) Electrolyte imbalance (3) UTI (urinary tract infection) (4) Sepsis (5) Malnutrition (6) Pyelonephritis (7) Leukocytosis Assessment Electrolyte imbalance, hypernatremia, hypokalemia Pyelonephritis, leukocytosis Fever, tachycardia Plan July 19: Labs reviewed. Renal parameters stable. Continue per consultants. Patient full code. July 18: No CHEM panel drawn today. Medication list reviewed. Clinically stable. Remains full code. Continue per consultants. July 17: Labs reviewed. Renal parameters stable. Blood pressure 90 to 100 systolic stable. July 16: Labs reviewed. Renal parameters stable. Blood pressure stable. July 15: Labs reviewed. Renal parameters stable. Blood pressure is stable. July 14: No CHEM panel done today. Stable from renal standpoint of view. July 13: CHEM panel reviewed. Renal parameters stable. Continue per consultants. Midodrine for BP support on board. July 12: No chemistry panel drawn today. Medication list reviewed. Continue to monitor electrolytes and renal parameters. Continue per consultants. July 11: Labs reviewed. Renal parameters stable. Electrolytes within normal limit. Will stop IV fluid. Will start midodrine for low blood pressure. July 10: Serum sodium improved. Low potassium and low phosphorus addressed. IV down to 50 cc an hour. Stable from renal standpoint of view. Continue to monitor electrolytes and chemistries. Previously: Change IV to D5W Potassium supplement Anemia work-up Albumin bolus Monitor electrolytes and renal parameters Per orders Subjective ROS Limited/Unobtainable: Yes Objective Objective Last 24 Hour Vital Signs Date Time Temp Pulse Resp B/P (MAP) Pulse Ox O2 Delivery O2 Flow Rate FiO2 07/19/20 12:00 97.3 70 18 102/61 (75) 100 07/19/20 09:00 Nasal Cannula 3.0 07/19/20 08:00 98.0 72 18 107/58 (74) 99 07/19/20 04:00 97.2 76 19 111/56 (74) 95 07/19/20 00:00 97.0 72 18 99/51 (67) 100 07/18/20 21:00 Nasal Cannula 3.0 07/18/20 20:00 97.9 82 18 122/83 (96) 98 Intake and Output 07/18/20 07/19/20 19:00 07:00 Intake Total 960 ml 750 ml Output Total 600 ml Balance 960 ml 150 ml Intake Free Water 360 ml 150 ml Tube Feeding 600 ml 600 ml Output Urine Total 600 ml # Bowel Movements 1 Laboratory Tests 07/19/20 05:37: POC Whole Blood Glucose [Pending] 07/19/20 08:35: White Blood Count 11.2H, Red Blood Count 3.29L, Hemoglobin 9.5L, Hematocrit 28.6L, Mean Corpuscular Volume 87, Mean Corpuscular Hemoglobin 28.9, Mean Corpuscular Hemoglobin Concent 33.3, Red Cell Distribution Width 16.1H, Platelet Count 366, Mean Platelet Volume 6.2L, Neutrophils (%) (Auto) 80.4H, Lymphocytes (%) (Auto) 12.4L, Monocytes (%) (Auto) 5.1, Eosinophils (%) (Auto) 1.1, Basophils (%) (Auto) 1.0, Sodium Level 136, Potassium Level 4.0, Chloride Level 101, Carbon Dioxide Level 30, Anion Gap 5, Blood Urea Nitrogen 20H, Creatinine 0.3L, Estimat Glomerular Filtration Rate > 60, Glucose Level 121H, Calcium Level 9.2, Phosphorus Level 3.0, Magnesium Level 2.2, Total Bilirubin 0.2, Aspartate Amino Transf (AST/SGOT) 15, Alanine Aminotransferase (ALT/SGPT) 18, Alkaline Phosphatase 73, Total Protein 7.4, Albumin 2.1L, Globulin 5.3, Albumin/Globulin Ratio 0.4L 07/19/20 11:05: POC Whole Blood Glucose 118H Height (Feet): 5 Height (Inches): 1.00 Weight (Pounds): 99 General Appearance: no apparent distress Cardiovascular: normal rate Respiratory/Chest: decreased breath sounds Abdomen: soft Gabriele Honeycutt MD Jul 19, 2020 16:18
[2020-07-19 20:00] VITALS: BP 96/50
[2020-07-20] VITALS: BP 108/50
[2020-07-20 04:00] VITALS: BP 100/60
[2020-07-20] MEDS: Midodrine 10mg tab ORAL SCH ×3 (05:16→21:36)
[2020-07-20] MEDS: NovoLOG Insulin Flexpen SUBQ SCH ×4 (05:17→21:00)
--- NOTE | 2020-07-20 06:47 | Hematology/Onc Progress Note ---
Assessment/Plan Assessment/Plan Assessment and Recs # Sepsis due to Pyelonephritis --> septic protocol started --> is on ivfs --> abx as per ID ceftriaxone-->zosyn --> imaging noted --> urine culture sens and spec as needed # Right lower extremity common femoral deep venous thrombosis --> anticoagulation has been started-->lovenox sq --> does have Elevated ddimer # Anemia due to chronic disease --> panel as needed -> hgb 10.7-->8.8-->9.3-->9.5 --> transfuse prn # Leukocytosis due to infection --> per ID abx # Fever with flu like symptoms --> r/o covid19 --> due to above # HL --> lipitor and asa # Tachycardia --> ivfs should improve # Dvt ppx lovenox sq Appreciate consultation and iraida GARZON Subjective Constitutional: Denies: no symptoms, chills, fever, malaise, weakness, other HEENT: Denies: no symptoms, eye pain, blurred vision, tearing, double vision, ear pain, ear discharge, nose pain, nose congestion, throat pain, throat swelling, mouth pain, mouth swelling, other Gastrointestinal/Abdominal: Denies: no symptoms, abdomen distended, abdominal pain, black stools, tarry stools, blood in stool, constipated, diarrhea, difficulty swallowing, nausea, poor appetite, poor fluid intake, rectal bleeding, vomiting, other Genitourinary: Denies: no symptoms, burning, discharge, frequency, flank pain, hematuria, incontinence, pain, urgency, other Neurologic/Psychiatric: Denies: no symptoms, anxiety, depressed, emotional problems, headache, numbness, paresthesia, pre-existing deficit, seizure, ting ling, tremors, weakness, other Endocrine: Denies: no symptoms, excessive sweating, flushing, intolerance to cold, intolerance to heat, increased hunger, increased thirst, increased urine, unexplained weight gain, unexplained weight loss, other Allergies: Coded Allergies: ERYTHROMYCIN BASE (Verified Allergy, Unknown, 11/12/16) Subjective 07/13 with valderrama, gt, nc, no bleeding, on abx 07/14 labs ordered, jannie, nc, no new events, cbc pending 07/15 nv, no new changes, no bleeding, valderrama and nc, labs reviewed 07/16 nv, no bleeding, meds reviewed, no new changes, no bleeding 07/17: labs reviewed, h/h stable, dc planning continues 07/19 nv, unchanged, no new events, no bleeding, labs noted 07/20 nv, no major changes, labs reviewed, bp was low overnight Objective Objective Current Medications Medications (Trade) Dose Ordered Sig/Alvarado Route PRN Reason Start Time Stop Time Status Last Admin Dose Admin Acetaminophen (Tylenol) 650 mg Q4H PRN ORAL MILD PAIN/TEMP > 101F 07/09/20 02:30 08/08/20 02:29 07/15/20 14:24 Ascorbic Acid (Vitamin C) 500 mg DAILY ORAL 07/09/20 09:00 08/08/20 08:59 07/19/20 08:11 Atorvastatin Calcium (Lipitor) 10 mg BEDTIME GT 07/09/20 21:00 10/07/20 20:59 07/19/20 21:09 Bisacodyl (Dulcolax) 10 mg DAILY PRN RECTAL Constipation 07/09/20 02:30 10/07/20 02:29 Clonidine HCl (Catapres Tab) 0.1 mg Q8H PRN GT HYPERTENSION 07/09/20 02:30 10/07/20 02:29 Dextrose (Dextrose 50%) 25 ml Q30M PRN IV Hypoglycemia 07/09/20 02:45 10/07/20 02:44 Dextrose (Dextrose 50%) 50 ml Q30M PRN IV Hypoglycemia 07/09/20 02:45 10/07/20 02:44 Enoxaparin Sodium (Lovenox) 40 mg Q12HR SUBQ 07/13/20 21:00 10/11/20 20:59 07/19/20 21:10 Insulin Aspart (NovoLOG) BEFORE MEALS AND HS SUBQ 07/09/20 06:30 10/07/20 06:29 07/11/20 17:04 Levetiracetam (Keppra) 500 mg Q12HR GT 07/09/20 09:00 08/08/20 08:59 07/19/20 21:10 Midodrine (Pro-Amatine) 10 mg Q8HR ORAL 07/11/20 16:00 10/09/20 15:59 07/20/20 05:16 Multivitamins Therapeutic (Therapeutic Multivitamin) 1 ea DAILY ORAL 07/09/20 09:00 08/08/20 08:59 07/19/20 08:11 Potassium Chloride (K-Dur) 20 meq TWICE A DAY GT 07/10/20 14:00 10/08/20 13:59 07/19/20 17:47 Last 24 Hour Vital Signs Date Time Temp Pulse Resp B/P (MAP) Pulse Ox O2 Delivery O2 Flow Rate FiO2 07/20/20 04:00 98.3 77 20 100/60 (73) 96 07/20/20 00:00 98.9 71 20 108/50 (69) 94 07/19/20 21:00 Nasal Cannula 3.0 07/19/20 20:00 98.1 73 18 96/50 (65) 99 07/19/20 16:00 97.2 69 18 113/65 (81) 99 07/19/20 12:00 97.3 70 18 102/61 (75) 100 07/19/20 09:00 Nasal Cannula 3.0 07/19/20 08:00 98.0 72 18 107/58 (74) 99 07/19/20 04:00 97.2 76 19 111/56 (74) 95 07/19/20 00:00 97.0 72 18 99/51 (67) 100 07/18/20 21:00 Nasal Cannula 3.0 07/18/20 20:00 97.9 82 18 122/83 (96) 98 07/18/20 16:00 97.6 69 20 109/62 (78) 99 07/18/20 12:00 98.2 72 20 105/57 (73) 98 07/18/20 09:00 Nasal Cannula 3.0 07/18/20 08:00 98.2 67 20 112/54 (73) 97 Intake and Output 07/19/20 07/20/20 19:00 07:00 Intake Total 780 ml 750 ml Output Total 200 ml 500 ml Balance 580 ml 250 ml Intake Free Water 180 ml 200 ml Tube Feeding 600 ml 550 ml Output Urine Total 200 ml 500 ml # Bowel Movements 1 1 Labs Test 07/17/20 19:56 07/18/20 05:32 07/18/20 21:47 07/19/20 05:37 POC Whole Blood Glucose 107 MG/DL (74-106) 122 MG/DL (74-106) Test 07/19/20 08:35 07/19/20 11:05 07/19/20 16:05 07/19/20 21:17 White Blood Count 11.2 K/UL (4.8-10.8) Red Blood Count 3.29 M/UL (4.20-5.40) Hemoglobin 9.5 G/DL (12.0-16.0) Hematocrit 28.6 % (37.0-47.0) Mean Corpuscular Volume 87 FL (80-99) Mean Corpuscular Hemoglobin 28.9 PG (27.0-31.0) Mean Corpuscular Hemoglobin Concent 33.3 G/DL (32.0-36.0) Red Cell Distribution Width 16.1 % (11.6-14.8) Platelet Count 366 K/UL (150-450) Mean Platelet Volume 6.2 FL (6.5-10.1) Neutrophils (%) (Auto) 80.4 % (45.0-75.0) Lymphocytes (%) (Auto) 12.4 % (20.0-45.0) Monocytes (%) (Auto) 5.1 % (1.0-10.0) Eosinophils (%) (Auto) 1.1 % (0.0-3.0) Basophils (%) (Auto) 1.0 % (0.0-2.0) Sodium Level 136 MMOL/L (136-145) Potassium Level 4.0 MMOL/L (3.5-5.1) Chloride Level 101 MMOL/L (98-107) Carbon Dioxide Level 30 MMOL/L (21-32) Anion Gap 5 mmol/L (5-15) Blood Urea Nitrogen 20 mg/dL (7-18) Creatinine 0.3 MG/DL (0.55-1.30) Estimat Glomerular Filtration Rate > 60 mL/min (>60) Glucose Level 121 MG/DL (74-106) Calcium Level 9.2 MG/DL (8.5-10.1) Phosphorus Level 3.0 MG/DL (2.5-4.9) Magnesium Level 2.2 MG/DL (1.8-2.4) Total Bilirubin 0.2 MG/DL (0.2-1.0) Aspartate Amino Transf (AST/SGOT) 15 U/L (15-37) Alanine Aminotransferase (ALT/SGPT) 18 U/L (12-78) Alkaline Phosphatase 73 U/L (46-116) Total Protein 7.4 G/DL (6.4-8.2) Albumin 2.1 G/DL (3.4-5.0) Globulin 5.3 g/dL Albumin/Globulin Ratio 0.4 (1.0-2.7) POC Whole Blood Glucose 118 MG/DL (74-106) 110 MG/DL (74-106) 108 MG/DL (74-106) Test 07/20/20 05:14 POC Whole Blood Glucose 109 MG/DL (74-106) Height (Feet): 5 Height (Inches): 1.00 Weight (Pounds): 99 Objective Sp02 EP Interpretation: reviewed, normal General Appearance: no apparent distress, non-verbal ++contracted Head: normocephalic, atraumatic ENT: hearing grossly normal, no angioedema Respiratory: chest non-tender, lungs clear, normal breath sounds,++2l Nc Cardiovascular: no edema, tachycardia Gastrointestinal: normal bowel sounds, non tender, soft, ++gt Rectal: deferred Musculoskeletal: normal inspection Neurologic: alert, motor strength/tone normal, no focal defects Skin: other - See RN skin exam. Lymphatic: no adenopathy Gu: valderrama+++ Nate Begum MD Jul 20, 2020 06:47
[2020-07-20 07:30] LABS: BASOPHILS % (AUTO) 0.4 % (0.0-2.0); EOSINOPHILS % (AUTO) 1.6 % (0.0-3.0); HEMATOCRIT 30.6 % (37.0-47.0); HEMOGLOBIN 9.5 G/DL (12.0-16.0); LYMPHOCYTES % (AUTO) 18.7 % (20.0-45.0); MEAN CORPUSCULAR VOLUME 93 FL (80-99); MONOCYTES % (AUTO) 7.1 % (1.0-10.0); NEUTROPHILS % (AUTO) 72.2 % (45.0-75.0); PLATELET COUNT 382 K/UL (150-450); RED BLOOD COUNT 3.29 M/UL (4.20-5.40); RED CELL DISTRIBUTION WIDTH 15.4 % (11.6-14.8); WHITE BLOOD COUNT 9.3 K/UL (4.8-10.8)
[2020-07-20 07:51] LABS: ANION GAP 4 mmol/L (5-15); BLOOD UREA NITROGEN 24 mg/dL (7-18); CALCIUM 9.4 MG/DL (8.5-10.1); CARBON DIOXIDE 31 MMOL/L (21-32); CHLORIDE 102 MMOL/L (98-107); CREATININE 0.4 MG/DL (0.55-1.30); POTASSIUM 4.2 MMOL/L (3.5-5.1); SODIUM 137 MMOL/L (136-145)
[2020-07-20 08:00] VITALS: BP 102/58
[2020-07-20] MEDS: Ascorbic Acid 500mg tab ORAL SCH (08:55)
[2020-07-20] MEDS: Multivitamin w/Minerals tab ORAL SCH (08:55)
[2020-07-20] MEDS: levETIRAcetam 500mg/5ml Liquid GT SCH ×2 (08:57→21:32)
[2020-07-20] MEDS: Enoxaparin 40mg Inj SUBQ SCH ×2 (08:58→21:33)
[2020-07-20 12:00] VITALS: BP 109/62
--- NOTE | 2020-07-20 12:54 | Nephrology Progress Note ---
Assessment/Plan Problem List: (1) Dehydration (2) Electrolyte imbalance (3) UTI (urinary tract infection) (4) Sepsis (5) Malnutrition (6) Pyelonephritis (7) Leukocytosis Assessment Electrolyte imbalance, hypernatremia, hypokalemia Pyelonephritis, leukocytosis Fever, tachycardia Plan July 20: Labs reviewed. Renal parameters stable. Continue to monitor electrolytes, calcium level, or renal parameters. July 19: Labs reviewed. Renal parameters stable. Continue per consultants. Patient full code. July 18: No CHEM panel drawn today. Medication list reviewed. Clinically stable. Remains full code. Continue per consultants. July 17: Labs reviewed. Renal parameters stable. Blood pressure 90 to 100 systolic stable. July 16: Labs reviewed. Renal parameters stable. Blood pressure stable. July 15: Labs reviewed. Renal parameters stable. Blood pressure is stable. July 14: No CHEM panel done today. Stable from renal standpoint of view. July 13: CHEM panel reviewed. Renal parameters stable. Continue per consultants. Midodrine for BP support on board. July 12: No chemistry panel drawn today. Medication list reviewed. Continue to monitor electrolytes and renal parameters. Continue per consultants. July 11: Labs reviewed. Renal parameters stable. Electrolytes within normal limit. Will stop IV fluid. Will start midodrine for low blood pressure. July 10: Serum sodium improved. Low potassium and low phosphorus addressed. IV down to 50 cc an hour. Stable from renal standpoint of view. Continue to monitor electrolytes and chemistries. Previously: Change IV to D5W Potassium supplement Anemia work-up Albumin bolus Monitor electrolytes and renal parameters Per orders Subjective ROS Limited/Unobtainable: Yes Objective Objective Last 24 Hour Vital Signs Date Time Temp Pulse Resp B/P (MAP) Pulse Ox O2 Delivery O2 Flow Rate FiO2 07/20/20 08:00 98.0 74 18 102/58 (73) 100 07/20/20 04:00 98.3 77 20 100/60 (73) 96 07/20/20 00:00 98.9 71 20 108/50 (69) 94 07/19/20 21:00 Nasal Cannula 3.0 07/19/20 20:00 98.1 73 18 96/50 (65) 99 07/19/20 16:00 97.2 69 18 113/65 (81) 99 Intake and Output 07/19/20 07/20/20 19:00 07:00 Intake Total 780 ml 750 ml Output Total 200 ml 500 ml Balance 580 ml 250 ml Intake Free Water 180 ml 200 ml Tube Feeding 600 ml 550 ml Output Urine Total 200 ml 500 ml # Bowel Movements 1 1 Current Medications Medications (Trade) Dose Ordered Sig/Alvarado Route PRN Reason Start Time Stop Time Status Last Admin Dose Admin Acetaminophen (Tylenol) 650 mg Q4H PRN ORAL MILD PAIN/TEMP > 101F 07/09/20 02:30 08/08/20 02:29 07/15/20 14:24 Ascorbic Acid (Vitamin C) 500 mg DAILY ORAL 07/09/20 09:00 08/08/20 08:59 07/20/20 08:55 Atorvastatin Calcium (Lipitor) 10 mg BEDTIME GT 07/09/20 21:00 10/07/20 20:59 07/19/20 21:09 Bisacodyl (Dulcolax) 10 mg DAILY PRN RECTAL Constipation 07/09/20 02:30 10/07/20 02:29 Clonidine HCl (Catapres Tab) 0.1 mg Q8H PRN GT HYPERTENSION 07/09/20 02:30 10/07/20 02:29 Dextrose (Dextrose 50%) 25 ml Q30M PRN IV Hypoglycemia 07/09/20 02:45 10/07/20 02:44 Dextrose (Dextrose 50%) 50 ml Q30M PRN IV Hypoglycemia 07/09/20 02:45 10/07/20 02:44 Enoxaparin Sodium (Lovenox) 40 mg Q12HR SUBQ 07/13/20 21:00 10/11/20 20:59 07/20/20 08:58 Insulin Aspart (NovoLOG) BEFORE MEALS AND HS SUBQ 07/09/20 06:30 10/07/20 06:29 07/11/20 17:04 Levetiracetam (Keppra) 500 mg Q12HR GT 07/09/20 09:00 08/08/20 08:59 07/20/20 08:57 Midodrine (Pro-Amatine) 10 mg Q8HR ORAL 07/11/20 16:00 10/09/20 15:59 07/20/20 05:16 Multivitamins Therapeutic (Therapeutic Multivitamin) 1 ea DAILY ORAL 07/09/20 09:00 08/08/20 08:59 07/20/20 08:55 Potassium Chloride (K-Dur) 20 meq TWICE A DAY GT 07/10/20 14:00 10/08/20 13:59 07/20/20 08:58 Laboratory Tests 07/19/20 16:05: POC Whole Blood Glucose 110H 07/19/20 21:17: POC Whole Blood Glucose 108H 07/20/20 05:14: POC Whole Blood Glucose 109H 07/20/20 05:35: White Blood Count 9.3, Red Blood Count 3.29L, Hemoglobin 9.5L, Hematocrit 30.6L, Mean Corpuscular Volume 93, Mean Corpuscular Hemoglobin 28.9, Mean Corpuscular Hemoglobin Concent 31.0L, Red Cell Distribution Width 15.4H, Platelet Count 382, Mean Platelet Volume 6.2L, Neutrophils (%) (Auto) 72.2, Lymphocytes (%) (Auto) 18.7L, Monocytes (%) (Auto) 7.1, Eosinophils (%) (Auto) 1.6, Basophils (%) (Auto) 0.4, Sodium Level 137, Potassium Level 4.2, Chloride Level 102, Carbon Dioxide Level 31, Anion Gap 4L, Blood Urea Nitrogen 24H, Creatinine 0.4L, Estimat Glomerular Filtration Rate > 60, Glucose Level 104, Calcium Level 9.4 07/20/20 11:20: POC Whole Blood Glucose 101 Height (Feet): 5 Height (Inches): 1.00 Weight (Pounds): 99 General Appearance: no apparent distress, lethargic Cardiovascular: normal rate Abdomen: soft, distended Gabriele Honeycutt MD Jul 20, 2020 12:54
[2020-07-20 16:00] VITALS: BP 110/69
--- NOTE | 2020-07-20 19:14 | Surgery Progress Note ---
Surgery Progress Note Subjective Additional Comments comfortable pending d/c placement awaiting Objective Last 24 Hour Vital Signs Date Time Temp Pulse Resp B/P (MAP) Pulse Ox O2 Delivery O2 Flow Rate FiO2 07/20/20 16:00 97.4 80 18 110/69 (83) 98 07/20/20 12:00 98.3 79 20 109/62 (78) 99 07/20/20 09:00 Nasal Cannula 3.0 07/20/20 08:00 98.0 74 18 102/58 (73) 100 07/20/20 04:00 98.3 77 20 100/60 (73) 96 07/20/20 00:00 98.9 71 20 108/50 (69) 94 07/19/20 21:00 Nasal Cannula 3.0 07/19/20 20:00 98.1 73 18 96/50 (65) 99 I&O Intake and Output 07/19/20 07/20/20 19:00 07:00 Intake Total 780 ml 800 ml Output Total 200 ml 500 ml Balance 580 ml 300 ml Intake Free Water 180 ml 200 ml Tube Feeding 600 ml 600 ml Output Urine Total 200 ml 500 ml # Bowel Movements 1 1 Dressing: saturated Cardiovascular: RSR Respiratory: decreased breath sounds Abdomen: non-tender, present bowel sounds, non-distended Extremities: no tenderness, no cyanosis Laboratory Tests Test 07/19/20 21:17 07/20/20 05:14 07/20/20 05:35 07/20/20 11:20 POC Whole Blood Glucose 108 MG/DL (74-106) H 109 MG/DL (74-106) H 101 MG/DL (74-106) White Blood Count 9.3 K/UL (4.8-10.8) Red Blood Count 3.29 M/UL (4.20-5.40) L Hemoglobin 9.5 G/DL (12.0-16.0) L Hematocrit 30.6 % (37.0-47.0) L Mean Corpuscular Volume 93 FL (80-99) Mean Corpuscular Hemoglobin 28.9 PG (27.0-31.0) Mean Corpuscular Hemoglobin Concent 31.0 G/DL (32.0-36.0) L Red Cell Distribution Width 15.4 % (11.6-14.8) H Platelet Count 382 K/UL (150-450) Mean Platelet Volume 6.2 FL (6.5-10.1) L Neutrophils (%) (Auto) 72.2 % (45.0-75.0) Lymphocytes (%) (Auto) 18.7 % (20.0-45.0) L Monocytes (%) (Auto) 7.1 % (1.0-10.0) Eosinophils (%) (Auto) 1.6 % (0.0-3.0) Basophils (%) (Auto) 0.4 % (0.0-2.0) Sodium Level 137 MMOL/L (136-145) Potassium Level 4.2 MMOL/L (3.5-5.1) Chloride Level 102 MMOL/L (98-107) Carbon Dioxide Level 31 MMOL/L (21-32) Anion Gap 4 mmol/L (5-15) L Blood Urea Nitrogen 24 mg/dL (7-18) H Creatinine 0.4 MG/DL (0.55-1.30) L Estimat Glomerular Filtration Rate > 60 mL/min (>60) Glucose Level 104 MG/DL (74-106) Calcium Level 9.4 MG/DL (8.5-10.1) Plan Problems: (1) Fever (2) Leukocytosis Assessment & Plan: on abx id input appreciated wounds not infected nutrition (3) Tachycardia (4) Decubitus skin ulcer (5) Pyelonephritis (6) Malnutrition (7) Sepsis Assessment & Plan: ill appearing poor skin turgor leukocytosis anemia h/h low trending prbc prn Needs based on underweight, DM 35.5kg 30-40 kcals/kg 4866-1300 total kcals 1.25-2 g protein/kg 44-71 g total protein 25-35ml/kcal mL/kg [id number] total fluid mLs NUTRITION DIAGNOSIS: Swallowing difficulty R/T dysphagia as evidenced by pt is Gtube dependent. ENTERAL NUTRITION RECOMMENDATIONS: Glucerna 1.2 @50ml x24 hrs to provide 1200ml, 1440 kcal, 72g pro, 966ml free H2O - As able rec carb control formula for h/o DM. - Start @30ml/hr for 6 hrs, advance as tolerated 10ml/hr q4-6 hrs to goal. - Flush per MD/ HOB over 30 degrees ADDITIONAL RECOMMENDATIONS: - Per SNF: 5'3" and 78lbs/35.45kg. - Check lytes daily, replete as needed - A1c for eval of glycemic control - Wound care: advanced per RN, f/up with WC RN. Add LINA BID w/ GT, Vit C 250mg BID (2) Decubitus skin ulcer Assessment & Plan: This is an emaciated pt whom presented on admission with Multiple Pressure Injuries. Unstageable Pressure Injury Sacrum (L)11cm x (W)10.5cm. Base of wound is 90% necrotic, surrounding 10% moist, erythematous borders. Edges adherent to base of wound. No odor or exudate noted. Unstageable Pressure Injury L trochanter(L)3.5cm x (W)5.5cm. Base of wound is 95% necrotic, 5% surrounding borders arleen. Edges adherent to base of wound. No odor or exudate noted.Periwound is pale. Non-Blanchable erythema without induration L Ischium. Non-Blanchable erythema without induration bony prominences of L Hip/L Trochanter/L Ischial tuberosity. DTPI L Heel(L)2.5cmx(W)2cm.Base of Pressure Injury is fluctuant, Maroon in colour with surrounding non-blanchable erythema. Non-Blanchable erythema without induration L Hallux (L)1cm x (W)2cm. DTPI R Heel (L)6cm x (W)8cm.Base of Pressure Injury is fluctuant and maroon in colour. Edges are adherent to base of Pressure Injury. Unstageable Pressure Injury dorsal R 1st metatarsal(L)0.8cm x (W)0.6cm.Base of wound is 100% necrotic with marginal erythema along borders . Edges adherent to base of wound.. Non-Blanchable erythema without induration distal/lateral R foot (L)1.5cm x (W)1 .5cm. Non-Blanchable erythema without induration R Hallux. Tx.Plan: Cleanse Sacral wound with Saline. Apply Therahoney. Apply Moisture Barrier Paste periwound. Cover with Optifoam drsg. Change every 3 days and prn. Cleanse L Trochanteric wound with Saline.Apply Therhaoney.Apply Moisture Barrier paste Periwound. Cover with Optifoam drsg. Change every 3 days and prn. Apply Moisture Barrier Paste to R and L ischium. Cover each site with Optifoam drsg. Change every 3 days and prn. Cover R hip /R Trochanter with Optifoam drsgs. Change every 7 days and prn. Apply Cavilon Skin Barrier to R heel , R 1st metatarsal,R hallux, Distal /Lateral R foot. Cover each Pressure Injury with Optifoam drsg. Change every 7 days and prn. Apply Cavilon Skin Barrier o L Heel , L Hallux, Distal lateral L Foot . Cover each Pressure Injury with Optifoam drsg. Change every 7 days and prn. Reposition at least every 2hours or as tolerated. Off-load heels with Pillow. APM/SOLOMON Mattress Overlay. (3) UTI (urinary tract infection) (4) Pneumonia (5) Sepsis Assessment & Plan: leukocytosis lactic acidosis malnutrition underweight bmi 13 micro noted on abx as per ID cont abx wounds unlikely etiology will follow with local care and evaluation to ensure improving thank you There is a slight degree of image degradation due to motion artifact. The right upper lobe is largely clear following may be some interstitial septal thickening in the apex. The right middle lobe is clear. The right lower lobe demonstrates some atelectasis at the right lung base. There is also a focal 6 mm nodular opacity, image 50 series 5. There is a vague mosaic attenuation pattern. Left upper lobe demonstrates scattered areas of mosaic attenuation superiorly image 10 of series 5 demonstrates a 3 mm left upper lobe nodule.. Irregular consolidative opacities are seen in the inferior left upper lobe. More extensive consolidation in a patchy and irregular distribution are seen in the left lower lobe. There is a small left pleural effusion. The heart is upper limits of normal in size. The ascending thoracic aorta is mildly ectatic. No mediastinal or hilar mass or adenopathy. Unremarkable. No axillary or chest wall mass or adenopathy demonstrated. The bones are unremarkable except for minimal degenerative spondylosis changes and slight anterior bowing of the sternum. The included lung bases demonstrate a gastrostomy which appears well-positioned. There is trace ascites Impression: Opacities in the left lower lobe and also to a lesser extent in the left upper lobe and minimally in the right lower lobe. Appearance is consistent with consolidation rather than mass. Most likely represents pneumonia, appearance nonspecific as regards etiology. Patchy pulmonary edema also possible, among other possibilities Small left pleural effusion Bilateral small nodules, as described. No further follow-up necessary if there are no risk factors for lung carcinoma. There are significant risk factors, then short interval follow-up CT in 6-12 months is recommended Trace ascites (8) UTI (urinary tract infection) (9) Pneumonia (10) PEG (percutaneous endoscopic gastrostomy) adjustment/replacement/removal Chao Ovalle Jul 20, 2020 19:14
[2020-07-20 20:00] VITALS: BP 120/58
--- NOTE | 2020-07-20 22:08 | General Progress Note ---
Subjective Constitutional: Reports: no symptoms HEENT: Reports: no symptoms Cardiovascular: Reports: no symptoms Respiratory: Reports: no symptoms Gastrointestinal/Abdominal: Reports: no symptoms Genitourinary: Reports: no symptoms Neurologic/Psychiatric: Reports: no symptoms Endocrine: Reports: no symptoms Hematologic/Lymphatic: Reports: no symptoms Allergies: Coded Allergies: ERYTHROMYCIN BASE (Verified Allergy, Unknown, 11/12/16) Objective Last 24 Hour Vital Signs Date Time Temp Pulse Resp B/P (MAP) Pulse Ox O2 Delivery O2 Flow Rate FiO2 07/20/20 20:00 98.6 87 22 120/58 (78) 97 07/20/20 16:00 97.4 80 18 110/69 (83) 98 07/20/20 12:00 98.3 79 20 109/62 (78) 99 07/20/20 09:00 Nasal Cannula 3.0 07/20/20 08:00 98.0 74 18 102/58 (73) 100 07/20/20 04:00 98.3 77 20 100/60 (73) 96 07/20/20 00:00 98.9 71 20 108/50 (69) 94 l Intake and Output 07/19/20 07/20/20 19:00 07:00 Intake Total 780 ml 800 ml Output Total 200 ml 500 ml Balance 580 ml 300 ml Intake Free Water 180 ml 200 ml Tube Feeding 600 ml 600 ml Output Urine Total 200 ml 500 ml # Bowel Movements 1 1 Laboratory Tests 07/20/20 05:14: POC Whole Blood Glucose 109H 07/20/20 05:35: White Blood Count 9.3, Red Blood Count 3.29L, Hemoglobin 9.5L, Hematocrit 30.6L, Mean Corpuscular Volume 93, Mean Corpuscular Hemoglobin 28.9, Mean Corpuscular Hemoglobin Concent 31.0L, Red Cell Distribution Width 15.4H, Platelet Count 382, Mean Platelet Volume 6.2L, Neutrophils (%) (Auto) 72.2, Lymphocytes (%) (Auto) 18.7L, Monocytes (%) (Auto) 7.1, Eosinophils (%) (Auto) 1.6, Basophils (%) (Auto) 0.4, Sodium Level 137, Potassium Level 4.2, Chloride Level 102, Carbon Dioxide Level 31, Anion Gap 4L, Blood Urea Nitrogen 24H, Creatinine 0.4L, Estima t Glomerular Filtration Rate > 60, Glucose Level 104, Calcium Level 9.4 07/20/20 11:20: POC Whole Blood Glucose 101 Height (Feet): 5 Height (Inches): 1.00 Weight (Pounds): 99 General Appearance: lethargic EENT: normal ENT inspection Neck: supple Cardiovascular: no gallop/murmur, no JVD Respiratory/Chest: lungs clear, normal breath sounds, no respiratory distress, no accessory muscle use Abdomen: normal bowel sounds, non tender, soft, no organomegaly, no mass Extremities: non-tender Neurologic: unresponsive, aphasia Assessment/Plan Status Narrative Patient is a febrile hemodynamically stable without tachycardia or fever physical exam is unchanged we will normal leukocyte count BMP is normal tolerated G-tube feeding and is still short of extended care facility that will accept the patient [facility] laboratory tests will be done in Gale Gonzalez MD, MD Jul 20, 2020 22:08
[2020-07-21] VITALS: BP 110/64
[2020-07-21 04:00] VITALS: BP 127/78
[2020-07-21] MEDS: NovoLOG Insulin Flexpen SUBQ SCH ×3 (05:32→16:30)
[2020-07-21] MEDS: Midodrine 10mg tab ORAL SCH (05:37)
--- NOTE | 2020-07-21 06:40 | Hematology/Onc Progress Note ---
Assessment/Plan Assessment/Plan Assessment and Recs # Leuckytosis with Sepsis due to Pyelonephritis --> septic protocol started --> is on ivfs --> abx as per ID ceftriaxone-->zosyn --> imaging noted --> urine culture sens and spec as needed # Right lower extremity common femoral deep venous thrombosis --> anticoagulation has been started-->lovenox sq --> does have Elevated ddimer # Anemia due to chronic disease --> panel as needed -> hgb 10.7-->8.8-->9.3-->9.5 --> transfuse prn # Leukocytosis due to infection --> per ID abx # Fever with flu like symptoms --> r/o covid19 --> due to above # HL --> lipitor and asa # Tachycardia --> ivfs should improve # Dvt ppx lovenox sq Appreciate consultation and iraida GARZON Subjective HEENT: Denies: no symptoms, eye pain, blurred vision, tearing, double vision, ear pain, ear discharge, nose pain, nose congestion, throat pain, throat swelling, mouth pain, mouth swelling, other Cardiovascular: Denies: no symptoms, chest pain, edema, irregular heart rate, lightheadedness, palpitations, syncope, other Respiratory: Denies: no symptoms, cough, shortness of breath, SOB with excertion, SOB at rest, sputum, wheezing, other Gastrointestinal/Abdominal: Denies: no symptoms, abdomen distended, abdominal pain, black stools, tarry stools, blood in stool, constipated, diarrhea, difficulty swallowing, nausea, poor appetite, poor fluid intake, rectal bleeding, vomiting, other Genitourinary: Denies: no symptoms, burning, discharge, frequency, flank pain, hematuria, incontinence, pain, urgency, other Endocrine: Denies: no symptoms, excessive sweating, flushing, intolerance to cold, intolerance to heat, increased hunger, increased thirst, increased urine, unexplained weight gain, unexplained weight loss, other Hematologic/Lymphatic: Denies: no symptoms, anemia, easy bleeding, easy bruising, adenopathy, other Allergies: Coded Allergies: ERYTHROMYCIN BASE (Verified Allergy, Unknown, 11/12/16) Subjective 07/13 with love valderrama, selin, no bleeding, on abx 07/14 labs ordered, selin valderrama, no new events, cbc pending 07/15 nv, no new changes, no bleeding, jannie and selin, labs reviewed 07/16 nv, no bleeding, meds reviewed, no new changes, no bleeding 07/17: labs reviewed, h/h stable, dc planning continues 07/19 nv, unchanged, no new events, no bleeding, labs noted 07/20 nv, no major changes, labs reviewed, bp was low overnight 07/21 nv, labs are noted, no bleeding, on tube feeds Objective Objective Current Medications Medications (Trade) Dose Ordered Sig/Alvarado Route PRN Reason Start Time Stop Time Status Last Admin Dose Admin Acetaminophen (Tylenol) 650 mg Q4H PRN ORAL MILD PAIN/TEMP > 101F 07/09/20 02:30 08/08/20 02:29 07/15/20 14:24 Ascorbic Acid (Vitamin C) 500 mg DAILY ORAL 07/09/20 09:00 08/08/20 08:59 07/20/20 08:55 Atorvastatin Calcium (Lipitor) 10 mg BEDTIME GT 07/09/20 21:00 10/07/20 20:59 07/20/20 21:32 Bisacodyl (Dulcolax) 10 mg DAILY PRN RECTAL Constipation 07/09/20 02:30 10/07/20 02:29 Clonidine HCl (Catapres Tab) 0.1 mg Q8H PRN GT HYPERTENSION 07/09/20 02:30 10/07/20 02:29 Dextrose (Dextrose 50%) 25 ml Q30M PRN IV Hypoglycemia 07/09/20 02:45 10/07/20 02:44 Dextrose (Dextrose 50%) 50 ml Q30M PRN IV Hypoglycemia 07/09/20 02:45 10/07/20 02:44 Enoxaparin Sodium (Lovenox) 40 mg Q12HR SUBQ 07/13/20 21:00 10/11/20 20:59 07/20/20 21:33 Insulin Aspart (NovoLOG) BEFORE MEALS AND HS SUBQ 07/09/20 06:30 10/07/20 06:29 07/11/20 17:04 Levetiracetam (Keppra) 500 mg Q12HR GT 07/09/20 09:00 08/08/20 08:59 07/20/20 21:32 Midodrine (Pro-Amatine) 10 mg Q8HR ORAL 07/11/20 16:00 10/09/20 15:59 07/21/20 05:37 Multivitamins Therapeutic (Therapeutic Multivitamin) 1 ea DAILY ORAL 07/09/20 09:00 08/08/20 08:59 07/20/20 08:55 Potassium Chloride (K-Dur) 20 meq TWICE A DAY GT 07/10/20 14:00 10/08/20 13:59 07/20/20 17:29 Last 24 Hour Vital Signs Date Time Temp Pulse Resp B/P (MAP) Pulse Ox O2 Delivery O2 Flow Rate FiO2 07/21/20 04:00 98.0 98 20 127/78 (94) 92 07/21/20 00:00 97.4 86 20 110/64 (79) 97 07/20/20 21:00 Nasal Cannula 3.0 07/20/20 20:00 98.6 87 22 120/58 (78) 97 07/20/20 16:00 97.4 80 18 110/69 (83) 98 07/20/20 12:00 98.3 79 20 109/62 (78) 99 07/20/20 09:00 Nasal Cannula 3.0 07/20/20 08:00 98.0 74 18 102/58 (73) 100 07/20/20 04:00 98.3 77 20 100/60 (73) 96 07/20/20 00:00 98.9 71 20 108/50 (69) 94 07/19/20 21:00 Nasal Cannula 3.0 07/19/20 20:00 98.1 73 18 96/50 (65) 99 07/19/20 16:00 97.2 69 18 113/65 (81) 99 07/19/20 12:00 97.3 70 18 102/61 (75) 100 07/19/20 09:00 Nasal Cannula 3.0 07/19/20 08:00 98.0 72 18 107/58 (74) 99 Intake and Output 07/20/20 07/21/20 19:00 07:00 Intake Total 550 ml Output Total 750 ml Balance -200 ml Intake Free Water 100 ml Tube Feeding 450 ml Output Urine Total 750 ml Labs Test 07/18/20 21:47 07/19/20 05:37 07/19/20 08:35 07/19/20 11:05 White Blood Count 11.2 K/UL (4.8-10.8) Red Blood Count 3.29 M/UL (4.20-5.40) Hemoglobin 9.5 G/DL (12.0-16.0) Hematocrit 28.6 % (37.0-47.0) Mean Corpuscular Volume 87 FL (80-99) Mean Corpuscular Hemoglobin 28.9 PG (27.0-31.0) Mean Corpuscular Hemoglobin Concent 33.3 G/DL (32.0-36.0) Red Cell Distribution Width 16.1 % (11.6-14.8) Platelet Count 366 K/UL (150-450) Mean Platelet Volume 6.2 FL (6.5-10.1) Neutrophils (%) (Auto) 80.4 % (45.0-75.0) Lymphocytes (%) (Auto) 12.4 % (20.0-45.0) Monocytes (%) (Auto) 5.1 % (1.0-10.0) Eosinophils (%) (Auto) 1.1 % (0.0-3.0) Basophils (%) (Auto) 1.0 % (0.0-2.0) Sodium Level 136 MMOL/L (136-145) Potassium Level 4.0 MMOL/L (3.5-5.1) Chloride Level 101 MMOL/L (98-107) Carbon Dioxide Level 30 MMOL/L (21-32) Anion Gap 5 mmol/L (5-15) Blood Urea Nitrogen 20 mg/dL (7-18) Creatinine 0.3 MG/DL (0.55-1.30) Estimat Glomerular Filtration Rate > 60 mL/min (>60) Glucose Level 121 MG/DL (74-106) Calcium Level 9.2 MG/DL (8.5-10.1) Phosphorus Level 3.0 MG/DL (2.5-4.9) Magnesium Level 2.2 MG/DL (1.8-2.4) Total Bilirubin 0.2 MG/DL (0.2-1.0) Aspartate Amino Transf (AST/SGOT) 15 U/L (15-37) Alanine Aminotransferase (ALT/SGPT) 18 U/L (12-78) Alkaline Phosphatase 73 U/L (46-116) Total Protein 7.4 G/DL (6.4-8.2) Albumin 2.1 G/DL (3.4-5.0) Globulin 5.3 g/dL Albumin/Globulin Ratio 0.4 (1.0-2.7) POC Whole Blood Glucose 118 MG/DL (74-106) Test 07/19/20 16:05 07/19/20 21:17 07/20/20 05:14 07/20/20 05:35 POC Whole Blood Glucose 110 MG/DL (74-106) 108 MG/DL (74-106) 109 MG/DL (74-106) White Blood Count 9.3 K/UL (4.8-10.8) Red Blood Count 3.29 M/UL (4.20-5.40) Hemoglobin 9.5 G/DL (12.0-16.0) Hematocrit 30.6 % (37.0-47.0) Mean Corpuscular Volume 93 FL (80-99) Mean Corpuscular Hemoglobin 28.9 PG (27.0-31.0) Mean Corpuscular Hemoglobin Concent 31.0 G/DL (32.0-36.0) Red Cell Distribution Width 15.4 % (11.6-14.8) Platelet Count 382 K/UL (150-450) Mean Platelet Volume 6.2 FL (6.5-10.1) Neutrophils (%) (Auto) 72.2 % (45.0-75.0) Lymphocytes (%) (Auto) 18.7 % (20.0-45.0) Monocytes (%) (Auto) 7.1 % (1.0-10.0) Eosinophils (%) (Auto) 1.6 % (0.0-3.0) Basophils (%) (Auto) 0.4 % (0.0-2.0) Sodium Level 137 MMOL/L (136-145) Potassium Level 4.2 MMOL/L (3.5-5.1) Chloride Level 102 MMOL/L (98-107) Carbon Dioxide Level 31 MMOL/L (21-32) Anion Gap 4 mmol/L (5-15) Blood Urea Nitrogen 24 mg/dL (7-18) Creatinine 0.4 MG/DL (0.55-1.30) Estimat Glomerular Filtration Rate > 60 mL/min (>60) Glucose Level 104 MG/DL (74-106) Calcium Level 9.4 MG/DL (8.5-10.1) Test 07/20/20 11:20 07/20/20 16:00 07/21/20 05:05 07/21/20 05:30 POC Whole Blood Glucose 101 MG/DL (74-106) 109 MG/DL (74-106) 121 MG/DL (74-106) Micro Microbiology Date/Time Source Procedure Growth Status 07/20/20 15:50 Nasopharynx SARS-CoV-2 RdRp Gene Assay - Final Complete Height (Feet): 5 Height (Inches): 1.00 Weight (Pounds): 99 Objective Sp02 EP Interpretation: reviewed, normal General Appearance: no apparent distress, non-verbal ++contracted Head: normocephalic, atraumatic ENT: hearing grossly normal, no angioedema Respiratory: chest non-tender, lungs clear, normal breath sounds,++2l Nc Cardiovascular: no edema, tachycardia Gastrointestinal: normal bowel sounds, non tender, soft, ++gt Rectal: deferred Musculoskeletal: normal inspection Neurologic: alert, motor strength/tone normal, no focal defects Skin: other - See RN skin exam. Lymphatic: no adenopathy Gu: valderrama+++ Nate Begum MD Jul 21, 2020 06:40
[2020-07-21 06:53] LABS: BASOPHILS % (AUTO) 0.5 % (0.0-2.0); EOSINOPHILS % (AUTO) 1.6 % (0.0-3.0); HEMATOCRIT 28.9 % (37.0-47.0); HEMOGLOBIN 9.4 G/DL (12.0-16.0); LYMPHOCYTES % (AUTO) 18.2 % (20.0-45.0); MEAN CORPUSCULAR VOLUME 91 FL (80-99); MONOCYTES % (AUTO) 5.3 % (1.0-10.0); NEUTROPHILS % (AUTO) 74.4 % (45.0-75.0); PLATELET COUNT 361 K/UL (150-450); RED BLOOD COUNT 3.16 M/UL (4.20-5.40); RED CELL DISTRIBUTION WIDTH 14.9 % (11.6-14.8); WHITE BLOOD COUNT 10.6 K/UL (4.8-10.8)
[2020-07-21 07:27] LABS: ALANINE AMINOTRANSFERASE 21 U/L (12-78); ALBUMIN 2.1 G/DL (3.4-5.0); ALBUMIN/GLOBULIN RATIO 0.4 (1.0-2.7); ALKALINE PHOSPHATASE 80 U/L (46-116); ANION GAP 4 mmol/L (5-15); ASPARTATE AMINO TRANSFERASE 19 U/L (15-37); BILIRUBIN,TOTAL 0.1 MG/DL (0.2-1.0); BLOOD UREA NITROGEN 21 mg/dL (7-18); CALCIUM 9.3 MG/DL (8.5-10.1); CARBON DIOXIDE 32 MMOL/L (21-32); CHLORIDE 104 MMOL/L (98-107); CREATININE 0.4 MG/DL (0.55-1.30); POTASSIUM 4.1 MMOL/L (3.5-5.1); SODIUM 140 MMOL/L (136-145)
[2020-07-21 08:00] VITALS: BP 117/65
[2020-07-21 08:29] LABS: PHOSPHORUS 3.4 MG/DL (2.5-4.9)
[2020-07-21] MEDS: Ascorbic Acid 500mg tab ORAL SCH (08:30)
[2020-07-21] MEDS: levETIRAcetam 500mg/5ml Liquid GT SCH (08:30)
[2020-07-21] MEDS: Multivitamin w/Minerals tab ORAL SCH (08:30)
[2020-07-21] MEDS: Enoxaparin 40mg Inj SUBQ SCH (08:31)
--- NOTE | 2020-07-21 10:45 | Infectious Diseases Prog Note ---
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 Lymphopenia Hypoxic w/ NC O2 requirement, r/o PNA 07/08 BCx NTD UA+, UCx <10k GNR COVID rapid test neg, PCR neg CXR: No acute process 07/14 UCx +yeast (colonizer) +RLE DVT on US 07/09 Elevated LFTs 67 / 120 Abd TTP 06/29 Abd US wnl Acute hep panel neg Cr 0.5 HIV screen neg PMH: DM CHF Dementia SNF resident Plan: Cont to monitor off abx Pt now COVID positive, monitor resp status closely - has been on 3L NC as baseline, if decreases from this baseline will start steroids/RDV CXR to trend Tx of RLE DVT per primary, on lovenox BID Consider CTA chest to r/o PE, could be cause of persistent leukocytosis, hypoxia 07/17 SP Zosyn #7 07/10 SP CTX #2 Monitor CBC/CMP Monitor temp curve, hemodynamics Monitor resp status D/w RN Thank you for this consult. [facility] will continue to follow. Subjective Allergies: Coded Allergies: ERYTHROMYCIN BASE (Verified Allergy, Unknown, 11/12/16) AF WBC 10 NAD in bed still on only 3L NC COVID positive now Objective Last 24 Hour Vital Signs Date Time Temp Pulse Resp B/P (MAP) Pulse Ox O2 Delivery O2 Flow Rate FiO2 07/21/20 08:00 98.0 77 18 117/65 (82) 93 07/21/20 04:00 98.0 98 20 127/78 (94) 92 07/21/20 00:00 97.4 86 20 110/64 (79) 97 07/20/20 21:00 Nasal Cannula 3.0 07/20/20 20:00 98.6 87 22 120/58 (78) 97 07/20/20 16:00 97.4 80 18 110/69 (83) 98 07/20/20 12:00 98.3 79 20 109/62 (78) 99 Height (Feet): 5 Height (Inches): 1.00 Weight (Pounds): 99 Gen: NAD HEENT: NCAT Pulm: BL chest rise Abd: Non-distended Ext: No c/c/e Skin: No visible rashes Neuro: Awake Microbiology Date/Time Source Procedure Growth Status 07/20/20 15:50 Nasopharynx SARS-CoV-2 RdRp Gene Assay - Final Complete Laboratory Tests Test 07/20/20 11:20 07/20/20 16:00 07/21/20 05:05 07/21/20 05:30 POC Whole Blood Glucose 101 MG/DL (74-106) 109 MG/DL (74-106) H 121 MG/DL (74-106) H White Blood Count 10.6 K/UL (4.8-10.8) Red Blood Count 3.16 M/UL (4.20-5.40) L Hemoglobin 9.4 G/DL (12.0-16.0) L Hematocrit 28.9 % (37.0-47.0) L Mean Corpuscular Volume 91 FL (80-99) Mean Corpuscular Hemoglobin 29.7 PG (27.0-31.0) Mean Corpuscular Hemoglobin Concent 32.5 G/DL (32.0-36.0) Red Cell Distribution Width 14.9 % (11.6-14.8) H Platelet Count 361 K/UL (150-450) Mean Platelet Volume 5.9 FL (6.5-10.1) L Neutrophils (%) (Auto) 74.4 % (45.0-75.0) Lymphocytes (%) (Auto) 18.2 % (20.0-45.0) L Monocytes (%) (Auto) 5.3 % (1.0-10.0) Eosinophils (%) (Auto) 1.6 % (0.0-3.0) Basophils (%) (Auto) 0.5 % (0.0-2.0) Sodium Level 140 MMOL/L (136-145) Potassium Level 4.1 MMOL/L (3.5-5.1) Chloride Level 104 MMOL/L (98-107) Carbon Dioxide Level 32 MMOL/L (21-32) Anion Gap 4 mmol/L (5-15) L Blood Urea Nitrogen 21 mg/dL (7-18) H Creatinine 0.4 MG/DL (0.55-1.30) L Estimat Glomerular Filtration Rate > 60 mL/min (>60) Glucose Level 105 MG/DL (74-106) Uric Acid 1.8 MG/DL (2.6-7.2) L Calcium Level 9.3 MG/DL (8.5-10.1) Phosphorus Level 3.4 MG/DL (2.5-4.9) Magnesium Level 2.0 MG/DL (1.8-2.4) Total Bilirubin 0.1 MG/DL (0.2-1.0) L Aspartate Amino Transf (AST/SGOT) 19 U/L (15-37) Alanine Aminotransferase (ALT/SGPT) 21 U/L (12-78) Alkaline Phosphatase 80 U/L (46-116) Total Protein 7.3 G/DL (6.4-8.2) Albumin 2.1 G/DL (3.4-5.0) L Globulin 5.2 g/dL Albumin/Globulin Ratio 0.4 (1.0-2.7) L Current Medications Medications (Trade) Dose Ordered Sig/Alvarado Route PRN Reason Start Time Stop Time Status Last Admin Dose Admin Acetaminophen (Tylenol) 650 mg Q4H PRN ORAL MILD PAIN/TEMP > 101F 07/09/20 02:30 08/08/20 02:29 07/15/20 14:24 Ascorbic Acid (Vitamin C) 500 mg DAILY ORAL 07/09/20 09:00 08/08/20 08:59 07/21/20 08:30 Atorvastatin Calcium (Lipitor) 10 mg BEDTIME GT 07/09/20 21:00 10/07/20 20:59 07/20/20 21:32 Bisacodyl (Dulcolax) 10 mg DAILY PRN RECTAL Constipation 07/09/20 02:30 10/07/20 02:29 Clonidine HCl (Catapres Tab) 0.1 mg Q8H PRN GT HYPERTENSION 07/09/20 02:30 10/07/20 02:29 Dextrose (Dextrose 50%) 25 ml Q30M PRN IV Hypoglycemia 07/09/20 02:45 10/07/20 02:44 Dextrose (Dextrose 50%) 50 ml Q30M PRN IV Hypoglycemia 07/09/20 02:45 10/07/20 02:44 Enoxaparin Sodium (Lovenox) 40 mg Q12HR SUBQ 07/13/20 21:00 10/11/20 20:59 07/21/20 08:31 Insulin Aspart (NovoLOG) BEFORE MEALS AND HS SUBQ 07/09/20 06:30 10/07/20 06:29 07/11/20 17:04 Levetiracetam (Keppra) 500 mg Q12HR GT 07/09/20 09:00 08/08/20 08:59 07/21/20 08:30 Midodrine (Pro-Amatine) 10 mg Q8HR ORAL 07/11/20 16:00 10/09/20 15:59 07/21/20 05:37 Multivitamins Therapeutic (Therapeutic Multivitamin) 1 ea DAILY ORAL 07/09/20 09:00 08/08/20 08:59 07/21/20 08:30 Potassium Chloride (K-Dur) 20 meq TWICE A DAY GT 07/10/20 14:00 10/08/20 13:59 07/21/20 08:30 Beth Marsh M.D. Jul 21, 2020 10:45
[2020-07-21 12:00] VITALS: BP 121/73
--- NOTE | 2020-07-21 13:57 | Nephrology Progress Note ---
Assessment/Plan Problem List: (1) Dehydration (2) Electrolyte imbalance (3) UTI (urinary tract infection) (4) Sepsis (5) Malnutrition (6) Pyelonephritis (7) Leukocytosis Assessment Electrolyte imbalance, hypernatremia, hypokalemia Pyelonephritis, leukocytosis Fever, tachycardia Plan July 21: Labs reviewed. Renal parameters stable. Continue per current management. Watch serum calcium. July 20: Labs reviewed. Renal parameters stable. Continue to monitor electrolytes, calcium level, or renal parameters. July 19: Labs reviewed. Renal parameters stable. Continue per consultants. Patient full code. July 18: No CHEM panel drawn today. Medication list reviewed. Clinically stable. Remains full code. Continue per consultants. July 17: Labs reviewed. Renal parameters stable. Blood pressure 90 to 100 systolic stable. July 16: Labs reviewed. Renal parameters stable. Blood pressure stable. July 15: Labs reviewed. Renal parameters stable. Blood pressure is stable. July 14: No CHEM panel done today. Stable from renal standpoint of view. July 13: CHEM panel reviewed. Renal parameters stable. Continue per consultants. Midodrine for BP support on board. July 12: No chemistry panel drawn today. Medication list reviewed. Continue to monitor electrolytes and renal parameters. Continue per consultants. July 11: Labs reviewed. Renal parameters stable. Electrolytes within normal limit. Will stop IV fluid. Will start midodrine for low blood pressure. July 10: Serum sodium improved. Low potassium and low phosphorus addressed. IV down to 50 cc an hour. Stable from renal standpoint of view. Continue to monitor electrolytes and chemistries. Previously: Change IV to D5W Potassium supplement Anemia work-up Albumin bolus Monitor electrolytes and renal parameters Per orders Subjective ROS Limited/Unobtainable: Yes Objective Objective Last 24 Hour Vital Signs Date Time Temp Pulse Resp B/P (MAP) Pulse Ox O2 Delivery O2 Flow Rate FiO2 07/21/20 12:00 98.5 79 19 121/73 (89) 95 07/21/20 09:00 Nasal Cannula 3.0 07/21/20 08:00 98.0 77 18 117/65 (82) 93 07/21/20 04:00 98.0 98 20 127/78 (94) 92 07/21/20 00:00 97.4 86 20 110/64 (79) 97 07/20/20 21:00 Nasal Cannula 3.0 07/20/20 20:00 98.6 87 22 120/58 (78) 97 07/20/20 16:00 97.4 80 18 110/69 (83) 98 Intake and Output 07/20/20 07/21/20 19:00 07:00 Intake Total 600 ml 850 ml Output Total 750 ml Balance -150 ml 850 ml Intake Free Water 100 ml 300 ml Tube Feeding 500 ml 550 ml Output Urine Total 750 ml Current Medications Medications (Trade) Dose Ordered Sig/Alvarado Route PRN Reason Start Time Stop Time Status Last Admin Dose Admin Acetaminophen (Tylenol) 650 mg Q4H PRN ORAL MILD PAIN/TEMP > 101F 07/09/20 02:30 08/08/20 02:29 07/15/20 14:24 Ascorbic Acid (Vitamin C) 500 mg DAILY ORAL 07/09/20 09:00 08/08/20 08:59 07/21/20 08:30 Atorvastatin Calcium (Lipitor) 10 mg BEDTIME GT 07/09/20 21:00 10/07/20 20:59 07/20/20 21:32 Bisacodyl (Dulcolax) 10 mg DAILY PRN RECTAL Constipation 07/09/20 02:30 10/07/20 02:29 Clonidine HCl (Catapres Tab) 0.1 mg Q8H PRN GT HYPERTENSION 07/09/20 02:30 10/07/20 02:29 Dextrose (Dextrose 50%) 25 ml Q30M PRN IV Hypoglycemia 07/09/20 02:45 10/07/20 02:44 Dextrose (Dextrose 50%) 50 ml Q30M PRN IV Hypoglycemia 07/09/20 02:45 10/07/20 02:44 Enoxaparin Sodium (Lovenox) 40 mg Q12HR SUBQ 07/13/20 21:00 10/11/20 20:59 07/21/20 08:31 Insulin Aspart (NovoLOG) BEFORE MEALS AND HS SUBQ 07/09/20 06:30 10/07/20 06:29 07/11/20 17:04 Levetiracetam (Keppra) 500 mg Q12HR GT 07/09/20 09:00 08/08/20 08:59 07/21/20 08:30 Midodrine (Pro-Amatine) 10 mg Q8HR ORAL 07/11/20 16:00 10/09/20 15:59 07/21/20 05:37 Multivitamins Therapeutic (Therapeutic Multivitamin) 1 ea DAILY ORAL 07/09/20 09:00 08/08/20 08:59 07/21/20 08:30 Potassium Chloride (K-Dur) 20 meq TWICE A DAY GT 07/10/20 14:00 10/08/20 13:59 07/21/20 08:30 Laboratory Tests 07/20/20 16:00: POC Whole Blood Glucose 109H 07/21/20 05:05: White Blood Count 10.6, Red Blood Count 3.16L, Hemoglobin 9.4L, Hematocrit 28.9L , Mean Corpuscular Volume 91, Mean Corpuscular Hemoglobin 29.7, Mean Corpuscular Hemoglobin Concent 32.5, Red Cell Distribution Width 14.9H, Platelet Count 361, Mean Platelet Volume 5.9L, Neutrophils (%) (Auto) 74.4, Lymphocytes (%) (Auto) 18.2L, Monocytes (%) (Auto) 5.3, Eosinophils (%) (Auto) 1.6, Basophils (%) (Auto) 0.5, Sodium Level 140, Potassium Level 4.1, Chloride Level 104, Carbon Dioxide Level 32, Anion Gap 4L, Blood Urea Nitrogen 21H, Creatinine 0.4L, Estimat Glomerular Filtration Rate > 60, Glucose Level 105, Uric Acid 1.8L, Calcium Level 9.3, Phosphorus Level 3.4, Magnesium Level 2.0, Total Bilirubin 0.1L, Aspartate Amino Transf (AST/SGOT) 19, Alanine Aminotransferase (ALT/SGPT) 21, Alkaline Phosphatase 80, Total Protein 7.3, Albumin 2.1L, Globulin 5.2, Albumin/Globulin Ratio 0.4L 07/21/20 05:30: POC Whole Blood Glucose 121H Height (Feet): 5 Height (Inches): 1.00 Weight (Pounds): 99 General Appearance: no apparent distress Neck: limited range of motion Cardiovascular: normal rate Respiratory/Chest: decreased breath sounds Abdomen: distended Gabriele Honeycutt MD Jul 21, 2020 13:57
[2020-07-21] MEDS ORDERED: BISACODYL10 M1 RC (15:05)
[2020-07-21] MEDS ORDERED: LOVENOX10 M1 SUBQ (15:06)
[2020-07-21] MEDS ORDERED: MIDODRINE HCL10 MG ORAL (15:07)
[2020-07-21 16:00] VITALS: BP 123/75
[2020-07-21] MEDS ORDERED: POTASSIUM CHLO20 ME1 ORAL (16:11)
--- NOTE | 2020-07-21 17:12 | Diagnostic Imaging Report ---
Indication: Shortness of breath Technique: One view of the chest Comparison: 07/15/2020 Findings: Lungs and pleural spaces remain clear. Bilateral calcifications are again demonstrated. Heart size is normal. Findings are unchanged Impression: No acute process
--- NOTE | 2020-07-21 21:21 | Surgery Progress Note ---
Surgery Progress Note Subjective Additional Comments late entry patient planned for d/c today improved over all no n/v labs improved okay for d/c Objective Last 24 Hour Vital Signs Date Time Temp Pulse Resp B/P (MAP) Pulse Ox O2 Delivery O2 Flow Rate FiO2 07/21/20 16:00 98.0 67 18 123/75 (91) 96 07/21/20 12:00 98.5 79 19 121/73 (89) 95 07/21/20 09:00 Nasal Cannula 3.0 07/21/20 08:00 98.0 77 18 117/65 (82) 93 07/21/20 04:00 98.0 98 20 127/78 (94) 92 07/21/20 00:00 97.4 86 20 110/64 (79) 97 I&O Intake and Output 07/20/20 07/21/20 19:00 07:00 Intake Total 600 ml 850 ml Output Total 750 ml Balance -150 ml 850 ml Intake Free Water 100 ml 300 ml Tube Feeding 500 ml 550 ml Output Urine Total 750 ml Dressing: saturated Cardiovascular: RSR Respiratory: decreased breath sounds Abdomen: non-tender, present bowel sounds Extremities: no edema, no tenderness, other Laboratory Tests Test 07/21/20 05:05 07/21/20 05:30 White Blood Count 10.6 K/UL (4.8-10.8) Red Blood Count 3.16 M/UL (4.20-5.40) L Hemoglobin 9.4 G/DL (12.0-16.0) L Hematocrit 28.9 % (37.0-47.0) L Mean Corpuscular Volume 91 FL (80-99) Mean Corpuscular Hemoglobin 29.7 PG (27.0-31.0) Mean Corpuscular Hemoglobin Concent 32.5 G/DL (32.0-36.0) Red Cell Distribution Width 14.9 % (11.6-14.8) H Platelet Count 361 K/UL (150-450) Mean Platelet Volume 5.9 FL (6.5-10.1) L Neutrophils (%) (Auto) 74.4 % (45.0-75.0) Lymphocytes (%) (Auto) 18.2 % (20.0-45.0) L Monocytes (%) (Auto) 5.3 % (1.0-10.0) Eosinophils (%) (Auto) 1.6 % (0.0-3.0) Basophils (%) (Auto) 0.5 % (0.0-2.0) Sodium Level 140 MMOL/L (136-145) Potassium Level 4.1 MMOL/L (3.5-5.1) Chloride Level 104 MMOL/L (98-107) Carbon Dioxide Level 32 MMOL/L (21-32) Anion Gap 4 mmol/L (5-15) L Blood Urea Nitrogen 21 mg/dL (7-18) H Creatinine 0.4 MG/DL (0.55-1.30) L Estimat Glomerular Filtration Rate > 60 mL/min (>60) Glucose Level 105 MG/DL (74-106) Uric Acid 1.8 MG/DL (2.6-7.2) L Calcium Level 9.3 MG/DL (8.5-10.1) Phosphorus Level 3.4 MG/DL (2.5-4.9) Magnesium Level 2.0 MG/DL (1.8-2.4) Total Bilirubin 0.1 MG/DL (0.2-1.0) L Aspartate Amino Transf (AST/SGOT) 19 U/L (15-37) Alanine Aminotransferase (ALT/SGPT) 21 U/L (12-78) Alkaline Phosphatase 80 U/L (46-116) Total Protein 7.3 G/DL (6.4-8.2) Albumin 2.1 G/DL (3.4-5.0) L Globulin 5.2 g/dL Albumin/Globulin Ratio 0.4 (1.0-2.7) L POC Whole Blood Glucose 121 MG/DL (74-106) H Plan Problems: (1) Fever (2) Leukocytosis Assessment & Plan: on abx id input appreciated wounds not infected nutrition (3) Tachycardia (4) Decubitus skin ulcer (5) Pyelonephritis (6) Malnutrition (7) Sepsis Assessment & Plan: ill appearing poor skin turgor leukocytosis anemia h/h low trending prbc prn Needs based on underweight, DM 35.5kg 30-40 kcals/kg 6515-9258 total kcals 1.25-2 g protein/kg 44-71 g total protein 25-35ml/kcal mL/kg 888-1243 total fluid mLs NUTRITION DIAGNOSIS: Swallowing difficulty R/T dysphagia as evidenced by pt is Gtube dependent. ENTERAL NUTRITION RECOMMENDATIONS: Glucerna 1.2 @50ml x24 hrs to provide 1200ml, 1440 kcal, 72g pro, 966ml free H2O - As able rec carb control formula for h/o DM. - Start @30ml/hr for 6 hrs, advance as tolerated 10ml/hr q4-6 hrs to goal. - Flush per MD/ HOB over 30 degrees ADDITIONAL RECOMMENDATIONS: - Per SNF: 5'3" and 78lbs/35.45kg. - Check lytes daily, replete as needed - A1c for eval of glycemic control - Wound care: advanced per RN, f/up with WC RN. Add LINA BID w/ GT, Vit C 250mg BID (2) Decubitus skin ulcer Assessment & Plan: This is an emaciated pt whom presented on admission with Multiple Pressure Injuries. Unstageable Pressure Injury Sacrum (L)11cm x (W)10.5cm. Base of wound is 90% necrotic, surrounding 10% moist, erythematous borders. Edges adherent to base of wound. No odor or exudate noted. Unstageable Pressure Injury L trochanter(L)3.5cm x (W)5.5cm. Base of wound is 95% necrotic, 5% surrounding borders arleen. Edges adherent to base of wound. No odor or exudate noted.Periwound is pale. Non-Blanchable erythema without induration L Ischium. Non-Blanchable erythema without induration bony prominences of L Hip/L Trochanter/L Ischial tuberosity. DTPI L Heel(L)2.5cmx(W)2cm.Base of Pressure Injury is fluctuant, Maroon in colour with surrounding non-blanchable erythema. Non-Blanchable erythema without induration L Hallux (L)1cm x (W)2cm. DTPI R Heel (L)6cm x (W)8cm.Base of Pressure Injury is fluctuant and maroon in colour. Edges are adherent to base of Pressure Injury. Unstageable Pressure Injury dorsal R 1st metatarsal(L)0.8cm x (W)0.6cm.Base of wound is 100% necrotic with marginal erythema along borders . Edges adherent to base of wound.. Non-Blanchable erythema without induration distal/lateral R foot (L)1.5cm x (W)1.5cm. Non-Blanchable erythema without induration R Hallux. Tx.Plan: Cleanse Sacral wound with Saline. Apply Therahoney. Apply Moisture Barrier Paste periwound. Cover with Optifoam drsg. Change every 3 days and prn. Cleanse L Trochanteric wound with Saline.Apply Therhaoney.Apply Moisture Barrier paste Periwound. Cover with Optifoam drsg. Change every 3 days and prn. Apply Moisture Barrier Paste to R and L ischium. Cover each site with Optifoam drsg. Change every 3 days and prn. Cover R hip /R Trochanter with Optifoam drsgs. Change every 7 days and prn. Apply Cavilon Skin Barrier to R heel , R 1st metatarsal,R hallux, Distal /Lateral R foot. Cover each Pressure Injury with Optifoam drsg. Change every 7 days and prn. Apply Cavilon Skin Barrier o L Heel , L Hallux, Distal lateral L Foot . Cover each Pressure Injury with Optifoam drsg. Change every 7 days and prn. Reposition at least every 2hours or as tolerated. Off-load heels with Pillow. APM/SOLOMON Mattress Overlay. (3) UTI (urinary tract infection) (4) Pneumonia (5) Sepsis Assessment & Plan: leukocytosis lactic acidosis malnutrition underweight bmi 13 micro noted on abx as per ID cont abx wounds unlikely etiology will follow with local care and evaluation to ensure improving thank you There is a slight degree of image degradation due to motion artifact. The right upper lobe is largely clear following may be some interstitial septal thickening in the apex. The right middle lobe is clear. The right lower lobe demonstrates some atelectasis at the right lung base. There is also a focal 6 mm nodular opacity, image 50 series 5. There is a vague mosaic attenuation pattern. Left upper lobe demonstrates scattered areas of mosaic attenuation superiorly image 10 of series 5 demonstrates a 3 mm left upper lobe nodule.. Irregular consolidative opacities are seen in the inferior left upper lobe. More extensive consolidation in a patchy and irregular distribution are seen in the left lower lobe. There is a small left pleural effusion. The heart is upper limits of normal in size. The ascending thoracic aorta is mildly ectatic. No mediastinal or hilar mass or adenopathy. Unremarkable. No axillary or chest wall mass or adenopathy demonstrated. The bones are unremarkable except for minimal degenerative spondylosis changes and slight anterior bowing of the sternum. The included lung bases demonstrate a gastrostomy which appears well-positioned. There is trace ascites Impression: Opacities in the left lower lobe and also to a lesser extent in the left upper lobe and minimally in the right lower lobe. Appearance is consistent with consolidation rather than mass. Most likely represents pneumonia, appearance nonspecific as regards etiology. Patchy pulmonary edema also possible, among other possibilities Small left pleural effusion Bilateral small nodules, as described. No further follow-up necessary if there are no risk factors for lung carcinoma. There are significant risk factors, then short interval follow-up CT in 6-12 months is recommended Trace ascites (8) UTI (urinary tract infection) (9) Pneumonia (10) PEG (percutaneous endoscopic gastrostomy) adjustment/replacement/removal Chao Ovalle Jul 21, 2020 21:21
--- NOTE | 2020-07-22 03:14 | Discharge Summary ---
DATE OF ADMISSION: 07/08/2020 DATE OF DISCHARGE: 07/21/2020 This is the first admission to [facility] of this 69-year-old lady because of altered mental status and sepsis. HISTORY OF PRESENT ILLNESS: Details of the events and circumstances that led the patient to be admitted to this medical unit can be found in the H and P. In brief, the patient is a resident of an [facility] facility where she has been in stable condition for the last several years. She is known to have several chronic medical syndrome, but has been stable on current medication. She was admitted to this institution less than 2 weeks prior to the present admission for similar condition and discharged in stable condition, however, she developed fever, tachycardia, and altered mental status, came to [place] [facility], and was admitted. HOSPITAL COURSE: Upon admission, the patient underwent clinical, biological, and imaging studies. Clinical assessment revealed the patient has mild leukocytosis, hemodynamically stable, and febrile with tachycardia. She was placed on piperacillin/tazobactam 3.375 g IV piggyback q.6 h. Her condition progressively improved. Her WBC, which was 20,000 on 07/10/2020, declined to 17,000 on 07/11/2020; 14,000 on 07/12/2020, and has been without any leukocytosis since 07/14/2020. remained stable and the patient was fed by G-tube. During her admission, the patient has been seen by multiple specialists that include infectious disease specialist, admin prog coord, air twist operator, and safety investigator/cause analyst. Over the last several days, the patient was hemodynamically stable, afebrile without any abnormality in the laboratory tests and she has been off antibiotic now for several days. She is discharged back to the [facility] where she came from. She will be seen at the facility as of 24 hours after discharge. Gale Abarca M.D. DR: CHARLEY JOB#: [id number] CC:
--- NOTE | 2020-07-22 15:03 | Discharge Summary ---
Discharge Summary Discharge Summary _ For dc summary please refer to dc summary dictated by Dr Abarca FINAL DIAGNOSIS Sepsis Leukocytosis COVID PNA ( on rapid COVID 07/20) Hypoxia Right lower extremity CFV DVT Probably UTI Anemia of chronic disease Dehydration Electrolyte imbalance Malnutrition Diabetes mellitus Decubitus skin ulcer, present on admission Yvette Silva NP Jul 22, 2020 15:03
== END 2020-07-21 18:11 | DRG 871 ==
LOC: EDBD 19:52 → EMR 20:19 → 4E 22:50 → EDBEDREQ 23:22
DX: A41.9 Sepsis, unspecified organism (principal); U07.1 COVID-19; J12.82 Pneumonia due to coronavirus disease 2019; N12 Tubulo-interstitial nephritis, not specified as acute or chronic; E46 Unspecified protein-calorie malnutrition; Z68.1 Body mass index [BMI] 19.9 or less, adult; N39.0 Urinary tract infection, site not specified; E87.0 Hyperosmolality and hypernatremia; I82.411 Acute embolism and thrombosis of right femoral vein; I50.9 Heart failure, unspecified; R62.7 Adult failure to thrive; F03.90 Unspecified dementia, unspecified severity, without behavioral disturbance, psychotic disturbance, mood disturbance, and anxiety; R00.0 Tachycardia, unspecified; D72.810 Lymphocytopenia; G40.909 Epilepsy, unspecified, not intractable, without status epilepticus; R09.02 Hypoxemia; E86.0 Dehydration; E87.6 Hypokalemia; Z93.1 Gastrostomy status; R13.10 Dysphagia, unspecified; L89.150 Pressure ulcer of sacral region, unstageable; L89.220 Pressure ulcer of left hip, unstageable; L89.610 Pressure ulcer of right heel, unstageable; D64.9 Anemia, unspecified; I69.920 Aphasia following unspecified cerebrovascular disease
CPT/HCPCS: 36415; 71045; 76700; 80048; 80053; 81001; 81003; 82550; 82553; 82607; 82728; 82746; 82962; 83540; 83550; 83605; 83615; 83690; 83735; 83880; 84100; 84484; 84550; 85007; 85025; 85379; 85610; 85730; 86140; 86703; 86705; 86709; 86803; 87040; 87081; 87086; 87340; 93005; 93970; 96361; 96365; 99285; J1815; J7030; J8499; U0002

== ENCOUNTER 2020-08-05 07:23 | Inpatient (IN) | payer MEDICARE, MEDICAID ==
[~2020-08-05] VITALS: Ht 157.5 cm; Wt 38.6 kg
[2020-08-05] VITALS (16 sets, daily range): BP systolic 99–131; BP diastolic 41–104
--- NOTE | 2020-08-05 07:20 | Emergency Room Report ---
History of Present Illness General Source: Patient, EMS Present Illness HPI Patient is a 69-year-old female presents for increased respiratory distress. Prior history of coronavirus infection. Patient had recent increased respiratory difficulty as well as decreased oxygen saturation. 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 Per EMS patient is full code. Patient did not have any advanced directives noted. Patient was reportedly tested positive for Covid approximate 10 days ago. Patient had been started on nonrebreather by paramedics and had improvement in her oxygen saturation to the 90s. Prior history of tracheostomy. Allergies: Coded Allergies: ERYTHROMYCIN BASE (Verified Allergy, Unknown, 11/12/16) Patient History Past Medical History: see triage record Reviewed Nursing Documentation: PMH: Agreed; PSxH: Agreed Review of Systems All Other Systems: limited - Limited by poor historian Physical Exam General Appearance: moderate distress, Chronically Ill Neck: other - Closed tracheostomy scar Respiratory: accessory muscle use, rhonchi Cardiovascular #1: normal inspection Gastrointestinal: other - G-tube site with some clear drainage. Musculoskeletal: decreased range of motion Neurologic: motor weakness, aphasia Skin: no rash Procedures Critical Care Time Critical Care Time Patient had a critical medical condition which untreated could potentially result in life or limb threatening injury. Total critical care time excluding procedures approximately 45 minutes. Medical Decision Making Diagnostic Impression: Primary Impression: Sepsis Additional Impressions: Tachycardia UTI (urinary tract infection) Leukocytosis ER Course Patient presented for respiratory distress. Differential diagnosis include was not limited to pneumonia, coronavirus infection, CHF, aspiration, acidosis among others. Because of complexity of patient's case laboratory tests and imaging studies were ordered.Patient was noted to have some prior history of COPD. ABG showed relative hypoxia for 100% FiO2. Patient was started on BiPAP. Patient started on IV fluids as well as IV antibiotics. Patient had prior history of urinary tract infection and G-tube. Chest x-ray 1 view showed diffuse hazy infiltrates. Normal cardiac size, no pleural effusion noted. EKG showed sinus tachycardia without acute ST or T wave changes. Patient was previously on Keppra and had not been having any noted seizures. Dr. Gale Abarca was contacted for inpatient management due to primary physician. Labs Test 08/05/20 07:30 08/05/20 07:39 White Blood Count 30.3 K/UL (4.8-10.8) Red Blood Count 3.72 M/UL (4.20-5.40) Hemoglobin 10.1 G/DL (12.0-16.0) Hematocrit 33.1 % (37.0-47.0) Mean Corpuscular Volume 89 FL (80-99) Mean Corpuscular Hemoglobin 27.0 PG (27.0-31.0) Mean Corpuscular Hemoglobin Concent 30.4 G/DL (32.0-36.0) Red Cell Distribution Width 15.0 % (11.6-14.8) Platelet Count 286 K/UL (150-450) Mean Platelet Volume 11.3 FL (6.5-10.1) Neutrophils (%) (Auto) % (45.0-75.0) Lymphocytes (%) (Auto) % (20.0-45.0) Monocytes (%) (Auto) % (1.0-10.0) Eosinophils (%) (Auto) % (0.0-3.0) Basophils (%) (Auto) % (0.0-2.0) Prothrombin Time 37.9 SEC (9.30-11.50) Prothromb Time International Ratio 3.8 (0.9-1.1) Activated Partial Thromboplast Time > 150 SEC (23-33) D-Dimer 2.97 mg/L FEU (0.00-0.49) Urine Color Yellow Urine Appearance Cloudy Urine pH 5 (4.5-8.0) Urine Specific [place] 1.020 (1.005-1.035) Urine Protein 3+ (NEGATIVE) Urine Glucose (UA) Negative (NEGATIVE) Urine Ketones Negative (NEGATIVE) Urine Blood 5+ (NEGATIVE) Urine Nitrite Positive (NEGATIVE) Urine Bilirubin Negative (NEGATIVE) Urine Urobilinogen Normal MG/DL (0.0-1.0) Urine Leukocyte Esterase 3+ (NEGATIVE) Urine RBC 30-40 /HPF (0 - 2) Urine WBC 30-40 /HPF (0 - 2) Urine Squamous Epithelial Cells Few /LPF (NONE/OCC) Urine Bacteria Moderate /HPF (NONE) Urine Mucus Few /LPF (NONE/OCC) Sodium Level 144 MMOL/L (136-145) Potassium Level 4.2 MMOL/L (3.5-5.1) Chloride Level 108 MMOL/L (98-107) Carbon Dioxide Level 29 MMOL/L (21-32) Anion Gap 7 mmol/L (5-15) Blood Urea Nitrogen 31 mg/dL (7-18) Creatinine 0.6 MG/DL (0.55-1.30) Estimat Glomerular Filtration Rate > 60 mL/min (>60) Glucose Level 171 MG/DL (74-106) Lactic Acid Level 1.70 mmol/L (0.4-2.0) Calcium Level 9.7 MG/DL (8.5-10.1) Phosphorus Level 3.2 MG/DL (2.5-4.9) Magnesium Level 2.2 MG/DL (1.8-2.4) Ferritin 642 NG/ML (8-388) Total Bilirubin 0.2 MG/DL (0.2-1.0) Aspartate Amino Transf (AST/SGOT) 31 U/L (15-37) Alanine Aminotransferase (ALT/SGPT) 45 U/L (12-78) Alkaline Phosphatase 117 U/L (46-116) Lactate Dehydrogenase 200 U/L (81-234) Total Creatine Kinase 35 U/L (26-308) Creatine Kinase MB 0.9 NG/ML (0.0-3.6) Creatine Kinase MB Relative Index 2.5 Troponin I 0.000 ng/mL (0.000-0.056) C-Reactive Protein, Quantitative 25.3 mg/dL (0.00-0.90) Pro-B-Type Natriuretic Peptide 467 pg/mL (0-125) Total Protein 7.7 G/DL (6.4-8.2) Albumin 2.2 G/DL (3.4-5.0) Globulin 5.5 g/dL Albumin/Globulin Ratio 0.4 (1.0-2.7) Lipase 194 U/L (73-393) Arterial Blood pH 7.401 (7.350-7.450) Arterial Blood Partial Pressure CO2 46.2 mmHg (35.0-45.0) Arterial Blood Partial Pressure O2 93.4 mmHg (75.0-100.0) Arterial Blood HCO3 28.0 mmol/L (22.0-26.0) Arterial Blood Oxygen Saturation 96.8 % (95-100) Arterial Blood Base Excess 2.8 (-2-2) Eduardo Test Positive Rhythm Strip Diag. Results EP Interpretation: yes Rhythm: no PVC's, no ectopy, other - Tachycardia 130s Status: improved Disposition: ADMITTED INPATIENT Condition: Critical Ángel Escobar MD Aug 05, 2020 07:20
[~2020-08-05 07:23] MED LIST changes: -ATORVASTATIN CA10 MG GT; +ATORVASTATIN CA10 MG PO; -BENZTROPINE MESY1 MG GT; +BENZTROPINE MESY1 MG PO; +BISACODYL10 M1 RC; -CATAPRES0.1 MG GT; +CATAPRES0.1 MG PO; -DOCUSATE SODIU100 M2 GT; +DOCUSATE SODIU100 M2 PO; +LOVENOX10 M1 SUBQ; +MIDODRINE HCL10 MG GT; +POTASSIUM CHLO20 ME1 GT; +PRO-STAT LIQUID30 ML ORAL
[2020-08-05] MEDS ORDERED: Vancomycin 1 GM in NS 275 ML IVPB ONE (07:30)
[2020-08-05] MEDS ORDERED: cefTRIAXone 1 GM in NS 55 ML IV ONE (07:30)
[2020-08-05] MEDS ORDERED: dexAMETHasone 10mg/ml Inj IV ONE (07:30)
--- NOTE | 2020-08-05 07:50 | NUR ---
ED Nurse Note:pt. was BIBA from SNF with respiratory distress, she is non verbal ,extrimities contracted, has wounds on left throchanter, sacral, right foot, has GTube, pt. came with jannie limon., She was placed in isolation room for covid positive, on teletypesetter monitor and on bi-pap. Blood and urine with cultures sent to labs, given IV meds and fluids
[2020-08-05 07:51] LABS: HEMATOCRIT 33.1 % (37.0-47.0); HEMOGLOBIN 10.1 G/DL (12.0-16.0); MEAN CORPUSCULAR VOLUME 89 FL (80-99); PLATELET COUNT 286 K/UL (150-450); RED BLOOD COUNT 3.72 M/UL (4.20-5.40)
[2020-08-05 07:54] LABS: APPEARANCE,URINE CLOUDY; BILIRUBIN, URINE NEGATIVE (NEGATIVE); GLUCOSE, URINE (UA) NEGATIVE (NEGATIVE); KETONES,URINE NEGATIVE (NEGATIVE); LEUKOCYTE ESTERASE ,URINE 3+ (NEGATIVE); NITRITE,URINE POSITIVE (NEGATIVE); PH,URINE 5 (4.5-8.0); PROTEIN,URINE 3+ (NEGATIVE); UROBILINOGEN,URINE NORMAL MG/DL (0.0-1.0)
[2020-08-05 07:58] LABS: WHITE BLOOD COUNT 30.3 K/UL (4.8-10.8)
[2020-08-05 08:04] LABS: COLOR,URINE YELLOW
[2020-08-05 08:06] LABS: ANION GAP 7 mmol/L (5-15); BLOOD UREA NITROGEN 31 mg/dL (7-18); CALCIUM 9.7 MG/DL (8.5-10.1); CARBON DIOXIDE 29 MMOL/L (21-32); CHLORIDE 108 MMOL/L (98-107); CREATININE 0.6 MG/DL (0.55-1.30); POTASSIUM 4.2 MMOL/L (3.5-5.1); SODIUM 144 MMOL/L (136-145)
[2020-08-05] MEDS ORDERED: NOVOLOG100 UNIT/5 SUBQ (08:08)
[2020-08-05 08:20] LABS: ALANINE AMINOTRANSFERASE 45 U/L (12-78); ALBUMIN 2.2 G/DL (3.4-5.0); ALBUMIN/GLOBULIN RATIO 0.4 (1.0-2.7); ALKALINE PHOSPHATASE 117 U/L (46-116); ASPARTATE AMINO TRANSFERASE 31 U/L (15-37); BILIRUBIN,TOTAL 0.2 MG/DL (0.2-1.0); CKMB 0.9 NG/ML (0.0-3.6); CREATINE KINASE 35 U/L (26-308); FERRITIN 642 NG/ML (8-388); LACTATE DEHYDROGENASE 200 U/L (81-234); PHOSPHORUS 3.2 MG/DL (2.5-4.9)
[2020-08-05 08:25] LABS: INR 3.8 (0.9-1.1)
[2020-08-05 08:27] LABS: PARTIAL THROMBOPLASTIN TIME > 150 SEC (23-33)
--- NOTE | 2020-08-05 09:30 | NUR ---
ED Nurse Note:covid swab and CRE sent to labs,
--- NOTE | 2020-08-05 09:45 | NUR ---
ED Nurse Note:called ICU for report- given to Thais
--- NOTE | 2020-08-05 10:30 | NUR ---
NURSE NOTES: Pt received from FABIAN Samaniego RN. VS are stable. Pt brought up from ER via hospital bed on BIPAP 10/5 FiO2 80%. Lung palomares diminished upon auscultation. SpO2 98%. Pt placed on lunchroom monitor - currently in ST. radial and dorsalis pedis pulses 2+. cap refill less than 3 sec. Pt is obtunded; opens eyes spontaneously; aphasic; unable to follow commands; gag reflex is intact; bilat pupils are equal and round 4mm with sluggish rxn to light. Pt has a GT clamped. Abd is round, soft, and non-tender. Bowel sounds active to all quadrants. F/C (from group home) present and draining clear, yellow urine. Skin alterations noted. Pt has a REJ 18 IV saline-locked. Pt has no belongings. Bed in lowest position, alarm on, side rails up x 3 and padded per seizure precaution; call light within reach. Will continue to monitor.
--- NOTE | 2020-08-05 10:30 | NUR ---
ED Nurse Note:pt. was taken to ICU, condition stable
[2020-08-05] MEDS ORDERED: Acetaminophen 650mg/20.3ml GT PRN ×2 (11:30→11:45)
--- NOTE | 2020-08-05 12:00 | NUR ---
NURSE NOTES: Pt repositioned. Afebrile. Seen by wound care nurseRebeka.
[2020-08-05] MEDS ORDERED: VITAMIN D3125 MCG GT (12:40)
[2020-08-05] MEDS ORDERED: LOVENOX10 M4 SUBQ (12:40)
--- NOTE | 2020-08-05 12:57 | Diagnostic Imaging Report ---
Indication: Shortness of breath Technique: One view of the chest Comparison: 07/21/2020 Findings: Left infrahilar and basilar infiltrate has developed. There are more questionable patchy focal infiltrates scattered throughout the right lung. The heart size is normal. The lungs are hyperinflated. Calcified granulomata are demonstrated bilaterally Impression: Left infrahilar and basilar infiltrate, likely pneumonia. Questionable infiltrates on the right as well.
[2020-08-05] MEDS: Piperacillin/Tazobactam 3.375 GM in NS 110 ML IVPB SCH ×2 (13:30→21:11)
--- NOTE | 2020-08-05 14:00 | NUR ---
NURSE NOTES: Pt repositioned. No distress noted. Seen by Dr Ovalle.
--- NOTE | 2020-08-05 14:10 | NUR ---
NURSE NOTES:WOUND CARE NOTES:Emaciated pt whom [presented on admission with Contractures, GT and Multiple Pressure Injuries. DTPI Thoracic Spine(L)1.4cm x (W)0.9cm. Base of Pressure Injury is indurated, Pupuric with surrounding maroon borders. Full Thickness Sacral Pressure Injury(L)4.5cm x (W)3.7cm x(D)2.5cm, Undermined Borders clockwise 12-6 by 3.1cm@12o'clock. Base of wound is arleen. Bone is palpable at base of wound. Scattered slough along loose edges. Small amt serous exudate noted. Wound is malodorous. Non- Blanching erythema without induration periwound. Full thickness Pressure Injury L trochanter(L)6.5cm x (W)9cm x 1.4cm. Undermining clockwise 7-5 by 2.6cm @12o'clock. Base of wound 60% fibrinous slough, 40% moist and pink. Bone exposure at base of wound. Edges are detached with scattered slough along borders. Small amt seropurulent exudate noted. Wound is malodorous. Periwound is maroon and indurated. Unstageable Pressure Injury R heel (L)0.6cm x (W)0.6cm.Stable dry eschar with attached edges. Surrounding Heel is boggy with Non-Blanchable erythema. DTPI lateral R Malleolus (L)1.5cm x (W)2.2cm. Base of wound is maroon and fluctuant. No evidence of further skin breakdown periwound. Unstageable Pressure Injury Dorsal R 1st metatarsal(L)0.8cm x (W)1.2cm. Dry eschar with marginal erythema along adherent borders Periwound is erythematous without fluctuance or induration. Non-Blanchable erythema with fluctuance distal/lateral L foot (L)1cm x (W)1cm. Unstageable Pressure Injury L Hallux (L)2.2cm x (W)1.5cm. Dry eschar with surrounding non-blanchable erythema.with fluctuance. Unstageable Pressure Injury Achilles L foot (L)1.5cm x (W)1.5 cm. Stable dry eschar with surrounding Non-blanchable erythema extending into plantar aspect of L heel. L heel is boggy.. Tx.Plan: Apply Cavilon Skin Barrier to Thoracic DTPI . Cover with Optifoam drsg. Change every 7 days and prn. Cleanse Sacral Wound with Dakin's 0.25% Sushant. Loosely pack wound with Dakin's moistened Kerlix. Apply Triad Paste periwound. Cover with Optifoam drsg Daily and prn. Cleanse L trochanteric Wound with Dakin's 0.25% sushant. Loosely pack with Dakin's moistened Kerlix. Apply Triad Paste Periwound. Cover with Optifoam drsg Daily and prn. Apply Betadine to Necrotic areas of L Foot . Cover each site with Optifoam drsg. Change every 3 days and prn. Apply Betadine to To Pressure Injuires R Foot. Cover each site with Optifoam drsgs. Change every 3 days and prn. Reposition at least every 2hours or as tolerated. Off-load heels with Pillow. APM/SOLOMON Mattress overlay.
--- NOTE | 2020-08-05 15:45 | NUR ---
NURSE NOTES: blood cultures collected and sent down to lab for processing.
[2020-08-05 15:49] LABS: ALANINE AMINOTRANSFERASE 37 U/L (12-78); ALBUMIN 1.9 G/DL (3.4-5.0); ALBUMIN/GLOBULIN RATIO 0.4 (1.0-2.7); ALKALINE PHOSPHATASE 99 U/L (46-116); ANION GAP 8 mmol/L (5-15); ASPARTATE AMINO TRANSFERASE 19 U/L (15-37); BILIRUBIN,TOTAL 0.3 MG/DL (0.2-1.0); BLOOD UREA NITROGEN 26 mg/dL (7-18); CALCIUM 9.4 MG/DL (8.5-10.1); CARBON DIOXIDE 28 MMOL/L (21-32); CHLORIDE 110 MMOL/L (98-107); CREATININE 0.5 MG/DL (0.55-1.30); POTASSIUM 3.9 MMOL/L (3.5-5.1); SODIUM 145 MMOL/L (136-145)
--- NOTE | 2020-08-05 16:00 | NUR ---
NURSE NOTES: Pt cleaned and repositioned. Axillary temp 99.2 F. No distress noted. FiO2 titrated to 65 %. No distress noted. Addendum: 08/05/20 at 1742 by Alisia Bond RN Late entry: Pt now on SOLOMON espinoza
--- NOTE | 2020-08-05 17:07 | Consultation ---
History of Present Illness General Date patient seen: Aug 05, 2020 Reason for Hospitalization: Dyspnea/Respdistress Present Illness HPI 69-year-old female well known to me recently discharged presents for increased respiratory distress. Prior history of coronavirus infection. Patient had recent increased respiratory difficulty as well as decreased oxygen saturation. 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 Per EMS patient is full code. Patient did not have any advanced directives noted. Patient was reportedly tested positive for Covid approximate 10 days ago. Patient had been started on nonrebreather by paramedics and had improvement in her oxygen saturation to the 90s. Prior history of tracheostomy. surgery called to evaluate and assist with care. Allergies: Coded Allergies: ERYTHROMYCIN BASE (Verified Allergy, Unknown, 11/12/16) COVID-19 Screening Contact w/high risk pt: No Experienced COVID-19 symptoms?: Yes Coronavirus symptoms experienc: Shortness of Breath Medication History Scheduled Ascorbic Acid* (Vitamin C*), 500 MG ORAL DAILY, (Reported) Atorvastatin Calcium* (Lipitor*), 10 MG PO BEDTIME, (Reported) Benztropine Mesylate* (Benztropine Mesylate*), 1 MG PO DAILY, (Reported) Cholecalciferol (Vitamin D3) (Vitamin D3), 125 MCG GT DAILY, (Reported) Docusate Sodium (Docusate Sodium), 100 MG PO DAILY, (Reported) Enoxaparin* (Lovenox*), 40 MG SUBQ Q12HR, (Reported) Insulin Aspart (Novolog), SUBQ Q6HR, (Reported) Levetiracetam (Levetiracetam), 500 MG GT BID, (Reported) Midodrine* (Proamatine*), 10 MG GT Q8HR, (Reported) Multivitamin With Minerals (Multivitamins With Minerals*), 1 TAB GT DAILY, (Reported) Potassium Chloride* (K-Dur*), 20 MEQ GT TWICE A DAY, (Reported) Scheduled PRN Acetaminophen* (Acetaminophen 325MG Tablet*), 650 MG ORAL Q4H PRN for MILD PAIN /TEMP > 101F, (Reported) Bisacodyl (Bisacodyl), 10 MG RC DAILY PRN for Constipation, (Reported) Clonidine Hcl* (Catapres*), 0.1 MG PO Q8HR PRN for HYPERTENSION, (Reported) Discontinued Medications Amino Acids/Protein Hydrolys (Pro-Stat Liquid), 30 ML ORAL DAILY, (Reported) Discontinued Reason: Therapy completed Cholecalciferol (Vitamin D3) (Vitamin D3*), 125 MCG GT DAILY, (Reported) Discontinued Reason: Prescription changed Enoxaparin* (Lovenox*), 60 MG SUBQ EVERY 12 HOURS, (Reported) Discontinued Reason: Prescription changed Magnesium Hydroxide* (Milk Of Magnesia*), 30 ML GT DAILY, (Reported) Discontinued Reason: Therapy completed Patient History Limited by: age, medical condition History Provided By: Medical Record, PMD Healthcare decision maker Resuscitation status Advanced Directive on File Past Medical/Surgical History Past Medical/Surgical History: (1) Fever (2) Pyelonephritis (3) Dehydration (4) Leukocytosis (5) Decubitus skin ulcer (6) Tachycardia (7) Electrolyte imbalance (8) Malnutrition (9) Sepsis (10) UTI (urinary tract infection) (11) Pneumonia (12) PEG (percutaneous endoscopic gastrostomy) adjustment/replacement/removal Review of Systems Review of Symptoms General ROS: no weight loss or fever Psychological ROS: no depression or mood changes, no memory loss Ophthalmic ROS: no visual changes or eye irritation ENT ROS: no nasal congestion, hearing loss, dizziness Allergy and Immunology ROS: no allergic symptoms or urticaria Hematological and Lymphatic ROS: no swollen glands, unusual bleeding or bruising Endocrine ROS: no polyuria, polydipsia, weight changes, temperature intolerance Respiratory ROS: no cough, shortness of breath, or wheezing Cardiovascular ROS: no chest pain or dyspnea on exertion Gastrointestinal ROS: denies abdominal pain, bright red blood in stool. Musculoskeletal ROS: no myalgias or arthralgias Neurological ROS: no TIA or stroke symptoms Dermatological ROS: no new or changing skin lesions, rashes or pruritis limited given medical condition Physical Exam Physical Exam General appearance: milddistress, appears stated age Head: Normocephalic, without obvious abnormality, atraumatic Eyes: conjunctivae/corneas clear. PERRL, EOM's intact. Fundi benign Throat: Lips, mucosa, and tongue normal. Teeth and gums normal Neck: supple, symmetrical, trachea midline, no adenopathy, thyroid: not enlarged, symmetric, no tenderness/mass/nodules, no carotid bruit and no JVD trach Lungs: dec to auscultation bilaterally Heart: regular rate and rhythm, S1, S2 normal, no murmur, click, rub or gallop Abdomen: soft, non-tender. Bowel sounds normal. No masses, no organomegaly tf Extremities: extremities normal, atraumatic, no cyanosis or edema Pulses: 2+ and symmetric Skin: Skin see below Neurologic: Grossly normal Last 24 Hour Vital Signs Date Time Temp Pulse Resp B/P (MAP) Pulse Ox O2 Delivery O2 Flow Rate FiO2 08/05/20 16:00 Bi-pap 08/05/20 16:00 65 08/05/20 16:00 99.2 112 20 99/69 (79) 100 08/05/20 16:00 112 08/05/20 15:00 109 28 126/73 (90) 100 08/05/20 14:00 108 27 123/64 (83) 100 08/05/20 13:00 109 30 123/63 (83) 100 08/05/20 12:00 98.5 112 29 108/61 (77) 100 08/05/20 12:00 80 08/05/20 12:00 Bi-pap 08/05/20 11:00 110 31 113/57 (75) 97 08/05/20 10:30 Bi-pap 08/05/20 10:30 99.0 119 33 116/56 100 Bi-pap 15.0 100 08/05/20 10:30 113 08/05/20 10:30 80 08/05/20 10:26 98.3 114 30 113/41 (65) 98 08/05/20 09:06 99.0 119 33 116/56 100 Bi-pap 15.0 100 08/05/20 08:09 133 37 Bi-pap 15.0 100 08/05/20 08:07 99.0 133 37 111/72 100 Bi-pap 15.0 100 08/05/20 07:55 134 39 97 100 08/05/20 07:17 99.0 130 24 140/70 (93) 96 Non-Rebreather 15.0 Laboratory Tests Test 08/05/20 07:30 08/05/20 07:39 08/05/20 14:40 White Blood Count 30.3 K/UL (4.8-10.8) *H Red Blood Count 3.72 M/UL (4.20-5.40) L Hemoglobin 10.1 G/DL (12.0-16.0) L Hematocrit 33.1 % (37.0-47.0) L Mean Corpuscular Volume 89 FL (80-99) Mean Corpuscular Hemoglobin 27.0 PG (27.0-31.0) Mean Corpuscular Hemoglobin Concent 30.4 G/DL (32.0-36.0) L Red Cell Distribution Width 15.0 % (11.6-14.8) H Platelet Count 286 K/UL (150-450) Mean Platelet Volume 11.3 FL (6.5-10.1) H Neutrophils (%) (Auto) % (45.0-75.0) Lymphocytes (%) (Auto) % (20.0-45.0) Monocytes (%) (Auto) % (1.0-10.0) Eosinophils (%) (Auto) % (0.0-3.0) Basophils (%) (Auto) % (0.0-2.0) Differential Total Cells Counted 100 Neutrophils % (Manual) 93 % (45-75) H Lymphocytes % (Manual) 2 % (20-45) L Monocytes % (Manual) 1 % (1-10) Eosinophils % (Manual) 0 % (0-3) Basophils % (Manual) 0 % (0-2) Band Neutrophils 4 % (0-8) Platelet Estimate Adequate Platelet Morphology Normal Hypochromasia 1+ Anisocytosis 1+ Prothrombin Time 37.9 SEC (9.30-11.50) H Prothromb Time International Ratio 3.8 (0.9-1.1) H Activated Partial Thromboplast Time > 150 SEC (23-33) *H D-Dimer 2.97 mg/L FEU (0.00-0.49) H Urine Color Yellow Urine Appearance Cloudy Urine pH 5 (4.5-8.0) Urine Specific [place] 1.020 (1.005-1.035) Urine Protein 3+ (NEGATIVE) H Urine Glucose (UA) Negative (NEGATIVE) Urine Ketones Negative (NEGATIVE) Urine Blood 5+ (NEGATIVE) H Urine Nitrite Positive (NEGATIVE) H Urine Bilirubin Negative (NEGATIVE) Urine Urobilinogen Normal MG/DL (0.0-1.0) Urine Leukocyte Esterase 3+ (NEGATIVE) H Urine RBC 30-40 /HPF (0 - 2) H Urine WBC 30-40 /HPF (0 - 2) H Urine Squamous Epithelial Cells Few /LPF (NONE/OCC) Urine Bacteria Moderate /HPF (NONE) H Urine Mucus Few /LPF (NONE/OCC) H Sodium Level 144 MMOL/L (136-145) 145 MMOL/L (136-145) Potassium Level 4.2 MMOL/L (3.5-5.1) 3.9 MMOL/L (3.5-5.1) Chloride Level 108 MMOL/L (98-107) H 110 MMOL/L (98-107) H Carbon Dioxide Level 29 MMOL/L (21-32) 28 MMOL/L (21-32) Anion Gap 7 mmol/L (5-15) 8 mmol/L (5-15) Blood Urea Nitrogen 31 mg/dL (7-18) H 26 mg/dL (7-18) H Creatinine 0.6 MG/DL (0.55-1.30) 0.5 MG/DL (0.55-1.30) L Estimat Glomerular Filtration Rate > 60 mL/min (>60) > 60 mL/min (>60) Glucose Level 171 MG/DL (74-106) H 190 MG/DL (74-106) H Lactic Acid Level 1.70 mmol/L (0.4-2.0) Calcium Level 9.7 MG/DL (8.5-10.1) 9.4 MG/DL (8.5-10.1) Phosphorus Level 3.2 MG/DL (2.5-4.9) Magnesium Level 2.2 MG/DL (1.8-2.4) Ferritin 642 NG/ML (8-388) H Total Bilirubin 0.2 MG/DL (0.2-1.0) 0.3 MG/DL (0.2-1.0) Aspartate Amino Transf (AST/SGOT) 31 U/L (15-37) 19 U/L (15-37) Alanine Aminotransferase (ALT/SGPT) 45 U/L (12-78) 37 U/L (12-78) Alkaline Phosphatase 117 U/L (46-116) H 99 U/L (46-116) Lactate Dehydrogenase 200 U/L (81-234) Total Creatine Kinase 35 U/L (26-308) Creatine Kinase MB 0.9 NG/ML (0.0-3.6) Creatine Kinase MB Relative Index 2.5 Troponin I 0.000 ng/mL (0.000-0.056) C-Reactive Protein, Quantitative 25.3 mg/dL (0.00-0.90) H Pro-B-Type Natriuretic Peptide 467 pg/mL (0-125) H Total Protein 7.7 G/DL (6.4-8.2) 7.2 G/DL (6.4-8.2) Albumin 2.2 G/DL (3.4-5.0) L 1.9 G/DL (3.4-5.0) L Globulin 5.5 g/dL 5.3 g/dL Albumin/Globulin Ratio 0.4 (1.0-2.7) L 0.4 (1.0-2.7) L Lipase 194 U/L (73-393) Arterial Blood pH 7.401 (7.350-7.450) Arterial Blood Partial Pressure CO2 46.2 mmHg (35.0-45.0) H Arterial Blood Partial Pressure O2 93.4 mmHg (75.0-100.0) Arterial Blood HCO3 28.0 mmol/L (22.0-26.0) H Arterial Blood Oxygen Saturation 96.8 % (95-100) Arterial Blood Base Excess 2.8 (-2-2) H Eduardo Test Positive Height (Feet): 5 Height (Inches): 2.00 Weight (Pounds): 85 Medications Current Medications Medications (Trade) Dose Ordered Sig/Alvarado Route PRN Reason Start Time Stop Time Status Last Admin Dose Admin Acetaminophen (Tylenol) 650 mg Q4H PRN GT Mild Pain (Pain Scale 1-3) 08/05/20 11:30 09/04/20 11:29 Acetaminophen (Tylenol) 650 mg Q4H PRN GT TEMP > 100.5 08/05/20 11:45 09/04/20 11:44 Dextrose 1,000 ml @ 100 mls/hr Q10H IV 08/05/20 14:00 09/04/20 13:59 08/05/20 13:30 Heparin Sodium (Porcine) (Heparin 5000 units/ml) 5,000 units EVERY 12 HOURS SUBQ 08/05/20 21:00 09/19/20 20:59 Levetiracetam (Keppra) 500 mg Q12HR GT 08/05/20 21:00 09/04/20 20:59 Pantoprazole (Protonix) 40 mg DAILY IVP 08/06/20 09:00 09/05/20 08:59 Piperacillin Sod/ Tazobactam Sod 3.375 gm/Sodium Chloride 110 ml @ 27.5 mls/hr Q8HR IVPB 08/05/20 14:00 08/12/20 13:59 08/05/20 13:30 Vancomycin HCl (Vanco pharmacy to dose) 1 ea DAILY PRN MISC . 08/05/20 14:00 09/04/20 13:59 Vancomycin HCl 750 mg/Sodium Chloride 275 ml @ 183.333 mls/hr Q24H IVPB 08/06/20 08:00 08/11/20 07:59 Assessment/Plan Problem List: (1) Leukocytosis Assessment & Plan: (1) Fever (2) Leukocytosis Assessment & Plan: on abx id input appreciated wounds not infected nutrition (3) Tachycardia (4) Decubitus skin ulcer (5) Pyelonephritis (6) Malnutrition (7) Sepsis Assessment & Plan: ill appearing poor skin turgor leukocytosis anemia h/h low trending prbc prn Needs based on underweight, DM 35.5kg 30-40 kcals/kg 4532-3770 total kcals 1.25-2 g protein/kg 44-71 g total protein 25-35ml/kcal mL/kg 888-1243 total fluid mLs NUTRITION DIAGNOSIS: Swallowing difficulty R/T dysphagia as evidenced by pt is Gtube dependent. ENTERAL NUTRITION RECOMMENDATIONS: Glucerna 1.2 @50ml x24 hrs to provide 1200ml, 1440 kcal, 72g pro, 966ml free H2O - As able rec carb control formula for h/o DM. - Start @30ml/hr for 6 hrs, advance as tolerated 10ml/hr q4-6 hrs to goal. - Flush per MD/ HOB over 30 degrees ADDITIONAL RECOMMENDATIONS: - Per SNF: 5'3" and 78lbs/35.45kg. - Check lytes daily, replete as needed - A1c for eval of glycemic control - Wound care: advanced per RN, f/up with WC RN. Add LINA BID w/ GT, Vit C 250mg BID Assessment & Plan: leukocytosis lactic acidosis malnutrition underweight bmi 13 micro noted on abx as per ID cont abx wounds unlikely etiology will follow with local care and evaluation to ensure improving thank you There is a slight degree of image degradation due to motion artifact. The right upper lobe is largely clear following may be some interstitial septal thickening in the apex. The right middle lobe is clear. The right lower lobe demonstrates some atelectasis at the right lung base. There is also a focal 6 mm nodular opacity, image 50 series 5. There is a vague mosaic attenuation pattern. Left upper lobe demonstrates scattered areas of mosaic attenuation superiorly image 10 of series 5 demonstrates a 3 mm left upper lobe nodule.. Irregular consolidative opacities are seen in the inferior left upper lobe. More extensive consolidation in a patchy and irregular distribution are seen in the left lower lobe. There is a small left pleural effusion. The heart is upper limits of normal in size. The ascending thoracic aorta is mildly ectatic. No mediastinal or hilar mass or adenopathy. Unremarkable. No axillary or chest wall mass or adenopathy demonstrated. The bones are unremarkable except for minimal degenerative spondylosis changes and slight anterior bowing of the sternum. The included lung bases demonstrate a gastrostomy which appears well-positioned. There is trace ascites Impression: Opacities in the left lower lobe and also to a lesser extent in the left upper lobe and minimally in the right lower lobe. Appearance is consistent with consolidation rather than mass. Most likely represents pneumonia, appearance nonspecific as regards etiology. Patchy pulmonary edema also possible, among other possibilities Small left pleural effusion Bilateral small nodules, as described. No further follow-up necessary if there are no risk factors for lung carcinoma. There are significant risk factors, then short interval follow-up CT in 6-12 months is recommended Trace ascites ICD Codes: D72.829 - Elevated white blood cell count, unspecified SNOMED: 064276252, 211256402 (2) Fever ICD Codes: R50.9 - Fever, unspecified SNOMED: 337681935 (3) Decubitus skin ulcer Assessment & Plan: Emaciated pt whom [presented on admission with Contractures, GT and Multiple Pressure Injuries. DTPI Thoracic Spine(L)1.4cm x (W)0.9cm. Base of Pressure Injury is indurated, Pupuric with surrounding maroon borders. Full Thickness stage 4 Sacral Pressure Injury(L)4.5cm x (W)3.7cm x(D)2.5cm, Undermined Borders clockwise 12-6 by 3.1cm@12o'clock. Base of wound is arleen. Bone is palpable at base of wound. Scattered slough along loose edges. Small amt serous exudate noted. Wound is malodorous. Non- Blanching erythema without induration periwound. Full thickness stage 4 Pressure Injury L trochanter(L)6.5cm x (W)9cm x 1.4cm. Undermining clockwise 7-5 by 2.6cm @12o'clock. Base of wound 60% fibrinous slough, 40% moist and pink. Bone exposure at base of wound. Edges are detached with scattered slough along borders. Small amt seropurulent exudate noted. Wound is malodorous. Periwound is maroon and indurated. Unstageable Pressure Injury R heel (L)0.6cm x (W)0.6cm.Stable dry eschar with attached edges. Surrounding Heel is boggy with Non-Blanchable erythema. DTPI lateral R Malleolus (L)1.5cm x (W)2.2cm. Base of wound is maroon and fluctuant. No evidence of further skin breakdown periwound. Unstageable Pressure Injury Dorsal R 1st metatarsal(L)0.8cm x (W)1.2cm. Dry eschar with marginal erythema along adherent borders Periwound is erythematous without fluctuance or induration. Non-Blanchable erythema with fluctuance distal/lateral L foot (L)1cm x (W)1cm. Unstageable Pressure Injury L Hallux (L)2.2cm x (W)1.5cm. Dry eschar with surrounding non-blanchable erythema.with fluctuance. Unstageable Pressure Injury Achilles L foot (L)1.5cm x (W)1.5 cm. Stable dry eschar with surrounding Non-blanchable erythema extending into plantar aspect of L heel. L heel is boggy.. Tx.Plan: Apply Cavilon Skin Barrier to Thoracic DTPI . Cover with Optifoam drsg. Change every 7 days and prn. Cleanse Sacral Wound with Dakin's 0.25% Nicki. Loosely pack wound with Dakin's moistened Kerlix. Apply Triad Paste periwound. Cover with Optifoam drsg Daily and prn. Cleanse L trochanteric Wound with Dakin's 0.25% nicki. Loosely pack with Dakin's moistened Kerlix. Apply Triad Paste Periwound. Cover with Optifoam drsg Daily and prn. Apply Betadine to Necrotic areas of L Foot . Cover each site with Optifoam drsg. Change every 3 days and prn. Apply Betadine to To Pressure Injuires R Foot. Cover each site with Optifoam drsgs. Change every 3 days and prn. Reposition at least every 2hours or as tolerated. Off-load heels with Pillow. APM/SOLOMON Mattress overlay. ICD Codes: L89.90 - Pressure ulcer of unspecified site, unspecified stage SNOMED: 448915402 (4) Sepsis ICD Codes: A41.9 - Sepsis, unspecified organism SNOMED: 15422958 (5) Malnutrition ICD Codes: E46 - Unspecified protein-calorie malnutrition SNOMED: 03293303 Chao Ovalle Aug 05, 2020 17:07
--- NOTE | 2020-08-05 17:46 | NUR ---
NURSE NOTES: sputum sample collected and sent down to lab for processing.
--- NOTE | 2020-08-05 18:00 | NUR ---
NURSE NOTES: Pt repositioned. No distress noted.
--- NOTE | 2020-08-05 19:12 | NUR ---
NURSE HAND-OFF REPORT: Latest Vital Signs: Temperature 99.2 , Pulse 116 , B/P 110 /72 , Respiratory Rate 24 , O2 SAT 100 , Bi-pap, FiO2 65 %. Vital Sign Comment: stable EKG Rhythm: Sinus Tachycardia Rhythm change?: N MD Notified?: n/a MD Response: n/a Latest Huggins Fall Score: 50 Fall Risk: High Risk Safety Measures: Call light Within Reach, Bed Alarm Zone 1, Side Rails Side Rails x3, Bed position Low and Locked. Fall Precautions: Yellow Socks Yellow Gown Door Sign Patient Fall Education Report given to Tacho Ravi RN.
--- NOTE | 2020-08-05 20:20 | NUR ---
NURSE NOTES: Pt report received from Alisia Marroquin RN. pt condition remains unchanged. pt opens eyes to sternal rub, doctors are aware. pt is showing ST on the monitor, no other cardiac abnormalities noted. pt is on BIPAP, sating 90% O2, no other changes in resp assessment. pt bed is low, locked, armed, call light within reach, bed rails up times 3. will follow plan of care. Addendum: 08/05/20 at 2024 by NICK WYATT RN NURSE NOTES: TIME: 1929 Pt report received from Alisia Marroquin RN. pt condition remains unchanged. pt opens eyes to sternal rub, doctors are aware. pt is showing ST on the monitor, no other cardiac abnormalities noted. pt is on BIPAP, sating 90% O2, no other changes in resp assessment. pt bed is low, locked, armed, call light within reach, bed rails up times 3. will follow plan of care.
[2020-08-05] MEDS ORDERED: Vancomycin 1 GM in D5W 275 ML IVPB SCH (21:00)
[2020-08-05] MEDS: levETIRAcetam 500mg/5ml Liquid GT SCH (21:09)
[2020-08-05] MEDS: Heparin 5000 units/ml inj SUBQ SCH (21:12)
--- NOTE | 2020-08-05 21:46 | NUR ---
NURSE NOTES: Dr Abarca came to assess pt, labs, and recent imaging. Dr ordered CBC and BMP for tomorrow. no change in pts condition.
--- NOTE | 2020-08-05 23:30 | NUR ---
NURSE NOTES: assessed pt. no distress noted. vital signs stable.
[2020-08-06] VITALS (40 sets, daily range): BP systolic 91–136; BP diastolic 38–112
--- NOTE | 2020-08-06 01:43 | NUR ---
NURSE NOTES: called RT Joshua to reposition BIPAP mask.
--- NOTE | 2020-08-06 03:24 | NUR ---
NURSE NOTES: pt cleaned and repositioned. Vital signs stable. IV tubing replaced.
[2020-08-06 05:02] LABS: HEMATOCRIT 25.6 % (37.0-47.0); HEMOGLOBIN 8.2 G/DL (12.0-16.0); MEAN CORPUSCULAR VOLUME 88 FL (80-99); PLATELET COUNT 251 K/UL (150-450); RED BLOOD COUNT 2.92 M/UL (4.20-5.40); RED CELL DISTRIBUTION WIDTH 15.5 % (11.6-14.8)
[2020-08-06 05:11] LABS: INR 1.2 (0.9-1.1)
[2020-08-06 05:21] LABS: AMYLASE 132 U/L (25-115)
[2020-08-06 05:22] LABS: WHITE BLOOD COUNT 27.7 K/UL (4.8-10.8)
[2020-08-06 05:28] LABS: ALANINE AMINOTRANSFERASE 27 U/L (12-78); ALBUMIN 1.7 G/DL (3.4-5.0); ALBUMIN/GLOBULIN RATIO 0.3 (1.0-2.7); ALKALINE PHOSPHATASE 102 U/L (46-116); ANION GAP 6 mmol/L (5-15); ASPARTATE AMINO TRANSFERASE 13 U/L (15-37); BILIRUBIN,TOTAL 0.3 MG/DL (0.2-1.0); BLOOD UREA NITROGEN 20 mg/dL (7-18); CALCIUM 9.1 MG/DL (8.5-10.1); CARBON DIOXIDE 29 MMOL/L (21-32); CHLORIDE 110 MMOL/L (98-107); CREATININE 0.5 MG/DL (0.55-1.30); POTASSIUM 3.2 MMOL/L (3.5-5.1); SODIUM 145 MMOL/L (136-145)
--- NOTE | 2020-08-06 05:30 | NUR ---
NURSE NOTES: Pt AM meds given. no change in condition.
[2020-08-06] MEDS: Piperacillin/Tazobactam 3.375 GM in NS 110 ML IVPB SCH ×3 (05:55→21:00)
--- NOTE | 2020-08-06 06:55 | Consultation ---
History of Present Illness General Chief Complaint: Dyspnea/Respdistress Present Illness Allergies: Coded Allergies: ERYTHROMYCIN BASE (Verified Allergy, Unknown, 11/12/16) Medication History Scheduled Ascorbic Acid* (Vitamin C*), 500 MG ORAL DAILY, (Reported) Atorvastatin Calcium* (Lipitor*), 10 MG PO BEDTIME, (Reported) Benztropine Mesylate* (Benztropine Mesylate*), 1 MG PO DAILY, (Reported) Cholecalciferol (Vitamin D3) (Vitamin D3), 125 MCG GT DAILY, (Reported) Docusate Sodium (Docusate Sodium), 100 MG PO DAILY, (Reported) Enoxaparin* (Lovenox*), 40 MG SUBQ Q12HR, (Reported) Insulin Aspart (Novolog), SUBQ Q6HR, (Reported) Levetiracetam (Levetiracetam), 500 MG GT BID, (Reported) Midodrine* (Proamatine*), 10 MG GT Q8HR, (Reported) Multivitamin With Minerals (Multivitamins With Minerals*), 1 TAB GT DAILY, (Reported) Potassium Chloride* (K-Dur*), 20 MEQ GT TWICE A DAY, (Reported) Scheduled PRN Acetaminophen* (Acetaminophen 325MG Tablet*), 650 MG ORAL Q4H PRN for MILD PAIN/TEMP > 101F, (Reported) Bisacodyl (Bisacodyl), 10 MG RC DAILY PRN for Constipation, (Reported) Clonidine Hcl* (Catapres*), 0.1 MG PO Q8HR PRN for HYPERTENSION, (Reported) Discontinued Medications Amino Acids/Protein Hydrolys (Pro-Stat Liquid), 30 ML ORAL DAILY, (Reported) Discontinued Reason: Therapy completed Cholecalciferol (Vitamin D3) (Vitamin D3*), 125 MCG GT DAILY, (Reported) Discontinued Reason: Prescription changed Enoxaparin* (Lovenox*), 60 MG SUBQ EVERY 12 HOURS, (Reported) Discontinued Reason: Prescription changed Magnesium Hydroxide* (Milk Of Magnesia*), 30 ML GT DAILY, (Reported) Discontinued Reason: Therapy completed Patient History Healthcare decision maker Resuscitation status Advanced Directive on File Physical Exam Last 24 Hour Vital Signs Date Time Temp Pulse Resp B/P (MAP) Pulse Ox O2 Delivery O2 Flow Rate FiO2 08/06/20 06:00 102 25 105/53 (70) 100 08/06/20 05:00 104 25 114/57 (76) 100 08/06/20 04:00 99.1 106 25 123/59 (80) 100 08/06/20 04:00 104 08/06/20 04:00 Bi-pap 08/06/20 03:47 105 24 100 40 08/06/20 03:00 106 25 120/56 (77) 100 08/06/20 02:00 103 23 106/55 (72) 100 08/06/20 01:00 110 20 120/56 (77) 100 08/06/20 00:00 99.2 112 29 124/67 (86) 100 08/06/20 00:00 Bi-pap 08/06/20 00:00 110 08/05/20 23:39 40 08/05/20 23:39 110 26 100 50 08/05/20 23:00 109 25 105/66 (79) 100 08/05/20 22:00 112 24 104/55 (71) 99 08/05/20 21:00 114 24 104/63 (77) 100 08/05/20 20:00 99.0 115 22 131/104 (113) 100 08/05/20 20:00 114 08/05/20 20:00 Bi-pap 08/05/20 19:37 117 24 100 65 08/05/20 19:37 50 08/05/20 19:00 116 24 110/72 (85) 100 08/05/20 18:00 114 23 115/78 (90) 100 08/05/20 17:00 117 29 119/72 (88) 99 08/05/20 16:00 65 08/05/20 16:00 Bi-pap 08/05/20 16:00 65 08/05/20 16:00 99.2 112 20 99/69 (79) 100 08/05/20 16:00 112 08/05/20 15:00 109 28 126/73 (90) 100 08/05/20 15:00 111 17 100 80 08/05/20 14:00 108 27 123/64 (83) 100 08/05/20 13:00 109 30 123/63 (83) 100 08/05/20 12:00 98.5 112 29 108/61 (77) 100 08/05/20 12:00 80 08/05/20 12:00 Bi-pap 08/05/20 11:00 110 31 113/57 (75) 97 08/05/20 10:30 121 31 100 Bi-Pap 80 08/05/20 10:30 Bi-pap 08/05/20 10:30 99.0 119 33 116/56 100 Bi-pap 15.0 100 08/05/20 10:30 113 08/05/20 10:30 80 08/05/20 10:30 121 31 100 80 08/05/20 10:26 98.3 114 30 113/41 (65) 98 08/05/20 09:06 99.0 119 33 116/56 100 Bi-pap 15.0 100 08/05/20 08:09 133 37 Bi-pap 15.0 100 08/05/20 08:07 99.0 133 37 111/72 100 Bi-pap 15.0 100 08/05/20 07:55 134 39 97 100 08/05/20 07:17 99.0 130 24 140/70 (93) 96 Non-Rebreather 15.0 Intake and Output 08/05/20 08/06/20 19:00 07:00 Intake Total 660.0 ml 1110.0 ml Output Total 645 ml 330 ml Balance 15.0 ml 780.0 ml Intake IV Total 660.0 ml 1110.0 ml Output Urine Total 645 ml 330 ml Laboratory Tests Test 08/05/20 07:30 08/05/20 07:39 08/05/20 14:40 08/06/20 04:10 White Blood Count 30.3 K/UL (4.8-10.8) *H 27.7 K/UL (4.8-10.8) *H Red Blood Count 3.72 M/UL (4.20-5.40) L 2.92 M/UL (4.20-5.40) L Hemoglobin 10.1 G/DL (12.0-16.0) L 8.2 G/DL (12.0-16.0) L Hematocrit 33.1 % (37.0-47.0) L 25.6 % (37.0-47.0) L Mean Corpuscular Volume 89 FL (80-99) 88 FL (80-99) Mean Corpuscular Hemoglobin 27.0 PG (27.0-31.0) 28.0 PG (27.0-31.0) Mean Corpuscular Hemoglobin Concent 30.4 G/DL (32.0-36.0) L 31.9 G/DL (32.0-36.0) L Red Cell Distribution Width 15.0 % (11.6-14.8) H 15.5 % (11.6-14.8) H Platelet Count 286 K/UL (150-450) 251 K/UL (150-450) Mean Platelet Volume 11.3 FL (6.5-10.1) H 10.2 FL (6.5-10.1) H Neutrophils (%) (Auto) % (45.0-75.0) % (45.0-75.0) Lymphocytes (%) (Auto) % (20.0-45.0) % (20.0-45.0) Monocytes (%) (Auto) % (1.0-10.0) % (1.0-10.0) Eosinophils (%) (Auto) % (0.0-3.0) % (0.0-3.0) Basophils (%) (Auto) % (0.0-2.0) % (0.0-2.0) Differential Total Cells Counted 100 Neutrophils % (Manual) 93 % (45-75) H Pending Lymphocytes % (Manual) 2 % (20-45) L Pending Monocytes % (Manual) 1 % (1-10) Eosinophils % (Manual) 0 % (0-3) Basophils % (Manual) 0 % (0-2) Band Neutrophils 4 % (0-8) Platelet Estimate Adequate Pending Platelet Morphology Normal Pending Hypochromasia 1+ Anisocytosis 1+ Prothrombin Time 37.9 SEC (9.30-11.50) H 13.0 SEC (9.30-11.50) H Prothromb Time International Ratio 3.8 (0.9-1.1) H 1.2 (0.9-1.1) H Activated Partial Thromboplast Time > 150 SEC (23-33) *H 28 SEC (23-33) D-Dimer 2.97 mg/L FEU (0.00-0.49) H Urine Color Yellow Urine Appearance Cloudy Urine pH 5 (4.5-8.0) Urine Specific [place] 1.020 (1.005-1.035) Urine Protein 3+ (NEGATIVE) H Urine Glucose (UA) Negative (NEGATIVE) Urine Ketones Negative (NEGATIVE) Urine Blood 5+ (NEGATIVE) H Urine Nitrite Positive (NEGATIVE) H Urine Bilirubin Negative (NEGATIVE) Urine Urobilinogen Normal MG/DL (0.0-1.0) Urine Leukocyte Esterase 3+ (NEGATIVE) H Urine RBC 30-40 /HPF (0 - 2) H Urine WBC 30-40 /HPF (0 - 2) H Urine Squamous Epithelial Cells Few /LPF (NONE/OCC) Urine Bacteria Moderate /HPF (NONE) H Urine Mucus Few /LPF (NONE/OCC) H Sodium Level 144 MMOL/L (136-145) 145 MMOL/L (136-145) 145 MMOL/L (136-145) Potassium Level 4.2 MMOL/L (3.5-5.1) 3.9 MMOL/L (3.5-5.1) 3.2 MMOL/L (3.5-5.1) L Chloride Level 108 MMOL/L (98-107) H 110 MMOL/L (98-107) H 110 MMOL/L (98-107) H Carbon Dioxide Level 29 MMOL/L (21-32) 28 MMOL/L (21-32) 29 MMOL/L (21-32) Anion Gap 7 mmol/L (5-15) 8 mmol/L (5-15) 6 mmol/L (5-15) Blood Urea Nitrogen 31 mg/dL (7-18) H 26 mg/dL (7-18) H 20 mg/dL (7-18) H Creatinine 0.6 MG/DL (0.55-1.30) 0.5 MG/DL (0.55-1.30) L 0.5 MG/DL (0.55-1.30) L Estimat Glomerular Filtration Rate > 60 mL/min (>60) > 60 mL/min (>60) > 60 mL/min (>60) Glucose Level 171 MG/DL (74-106) H 190 MG/DL (74-106) H 153 MG/DL (74-106) H Lactic Acid Level 1.70 mmol/L (0.4-2.0) 1.00 mmol/L (0.4-2.0) Calcium Level 9.7 MG/DL (8.5-10.1) 9.4 MG/DL (8.5-10.1) 9.1 MG/DL (8.5-10.1) Phosphorus Level 3.2 MG/DL (2.5-4.9) Magnesium Level 2.2 MG/DL (1.8-2.4) Ferritin 642 NG/ML (8-388) H Total Bilirubin 0.2 MG/DL (0.2-1.0) 0.3 MG/DL (0.2-1.0) 0.3 MG/DL (0.2-1.0) Aspartate Amino Transf (AST/SGOT) 31 U/L (15-37) 19 U/L (15-37) 13 U/L (15-37) L Alanine Aminotransferase (ALT/SGPT) 45 U/L (12-78) 37 U/L (12-78) 27 U/L (12-78) Alkaline Phosphatase 117 U/L (46-116) H 99 U/L (46-116) 102 U/L (46-116) Lactate Dehydrogenase 200 U/L (81-234) Total Creatine Kinase 35 U/L (26-308) Creatine Kinase MB 0.9 NG/ML (0.0-3.6) Creatine Kinase MB Relative Index 2.5 Troponin I 0.000 ng/mL (0.000-0.056) C-Reactive Protein, Quantitative 25.3 mg/dL (0.00-0.90) H Pro-B-Type Natriuretic Peptide 467 pg/mL (0-125) H Total Protein 7.7 G/DL (6.4-8.2) 7.2 G/DL (6.4-8.2) 6.7 G/DL (6.4-8.2) Albumin 2.2 G/DL (3.4-5.0) L 1.9 G/DL (3.4-5.0) L 1.7 G/DL (3.4-5.0) L Globulin 5.5 g/dL 5.3 g/dL 5.0 g/dL Albumin/Globulin Ratio 0.4 (1.0-2.7) L 0.4 (1.0-2.7) L 0.3 (1.0-2.7) L Lipase 194 U/L (73-393) 101 U/L (73-393) Arterial Blood pH 7.401 (7.350-7.450) Arterial Blood Partial Pressure CO2 46.2 mmHg (35.0-45.0) H Arterial Blood Partial Pressure O2 93.4 mmHg (75.0-100.0) Arterial Blood HCO3 28.0 mmol/L (22.0-26.0) H Arterial Blood Oxygen Saturation 96.8 % (95-100) Arterial Blood Base Excess 2.8 (-2-2) H Eduardo Test Positive Erythrocyte Sedimentation Rate 131 MM/HR (0-30) H Hemoglobin A1c 6.1 % (4.3-6.0) H Prealbumin Pending Amylase Level 132 U/L (25-115) H Height (Feet): 5 Height (Inches): 2.00 Weight (Pounds): 85 Medications Current Medications Medications (Trade) Dose Ordered Sig/Alvarado Route PRN Reason Start Time Stop Time Status Last Admin Dose Admin Acetaminophen (Tylenol) 650 mg Q4H PRN GT Mild Pain (Pain Scale 1-3) 08/05/20 11:30 09/04/20 11:29 Acetaminophen (Tylenol) 650 mg Q4H PRN GT TEMP > 100.5 08/05/20 11:45 09/04/20 11:44 Dextrose 1,000 ml @ 100 mls/hr Q10H IV 08/05/20 14:00 09/04/20 13:59 08/05/20 23:04 Heparin Sodium (Porcine) (Heparin 5000 units/ml) 5,000 units EVERY 12 HOURS SUBQ 08/05/20 21:00 09/19/20 20:59 08/05/20 21:12 Levetiracetam (Keppra) 500 mg Q12HR GT 08/05/20 21:00 09/04/20 20:59 08/05/20 21:09 Pantoprazole (Protonix) 40 mg DAILY IVP 08/06/20 09:00 09/05/20 08:59 Piperacillin Sod/ Tazobactam Sod 3.375 gm/Sodium Chloride 110 ml @ 27.5 mls/hr Q8HR IVPB 08/05/20 14:00 08/12/20 13:59 08/06/20 05:55 Sodium Hypochlorite (Dakin's Quarter Strength) 1 applic DAILY TOPIC 08/06/20 09:00 09/05/20 08:59 Vancomycin HCl ([facility] pharmacy to dose) 1 ea DAILY PRN MISC . 08/05/20 14:00 09/04/20 13:59 Vancomycin HCl 750 mg/Sodium Chloride 275 ml @ 183.333 mls/hr Q24H IVPB 08/06/20 08:00 08/11/20 07:59 Assessment/Plan Assessment/Plan: Hematology Consultation RFC: Leukocytosis with pna DOS: 08/06/2020 REQ MD: Rima HPI 69y old female, This patient presents from a alf facility. The patient was sent in for an elevated heart rate and respiratory rate. There is also report the patient was febrile earlier today with a temp of 102. The patient has multiple medical problems to include diabetes, CHF, failure to thrive, dementia to name a few. Patient herself is unable to give any type of history. 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 failure Hx Diabetes: Yes - Type 2 Hx Cancer: No Hx Gastrointestinal Problems: Yes Hx Neurological Problems: Yes - Generalized muscle weakness, Epilepsy Hx Epilepsy: Yes Review of Systems All Other Systems: negative except mentioned in HPI Physical Exam Sp02 EP Interpretation: reviewed, normal General Appearance: no apparent distress, non-verbal Head: normocephalic, atraumatic ENT: hearing grossly normal, no angioedema Respiratory: chest non-tender, lungs clear, normal breath sounds,++bipap Cardiovascular: no edema, tachycardia Gastrointestinal: normal bowel sounds, non tender, soft, ++gt Rectal: deferred Musculoskeletal: normal inspection Neurologic: alert, motor strength/tone normal, no focal defects Psychiatric: mood/affect normal Skin: other - See RN skin exam. Lymphatic: no adenopathy Gu: valderrama+++ Labs: reviewed Meds: noted Imaging Rate: tachycardiac Rhythm: other - S.tachycardia ST Segments: other - NSST findings Rhythm Strip Diag. Results EP Interpretation: yes Rate: 90's Rhythm: NSR, no PVC's, no ectopy Chest X-Ray Diagnostic Results Chest X-Ray Diagnostic Results : Chest X-Ray Ordered: Yes # of Views/Limited/Complete: 1 View Indication: Other EP Interpretation: Yes Interpretation: no consolidation, no effusion, no pneumothorax, no acute cardiopulmonary disease Impression: No acute disease Electronically Signed by: Kristina Rosario DO Assessment and Recs # Leukocytosis with likely sepsis due to pna --> ON ABX vanc/zosyn --> is on ivfs --> abx as per ID --> imaging noted # Right lower extremity dvt --> h/h to low for anticoag --> consider repeat lower duplex at this time --> consider ivcf # Anemia due to chronic disease --> hgb 10-->8.2 # Respiratory distress --> r/o covid --> per pulm # Dysphagia s/p peg # CVA hx # HL --> lipitor and asa # Tachycardia --> ivfs should improve # Dvt ppx heparin sq Nate Begum MD Aug 06, 2020 06:54
--- NOTE | 2020-08-06 07:22 | NUR ---
NURSE HAND-OFF REPORT: Latest Vital Signs: Temperature 99.1 , Pulse 106 , B/P 118 /62 , Respiratory Rate 25 , O2 SAT 100 , Bi-pap, O2 Flow Rate 15.0 . Vital Sign Comment: Stable EKG Rhythm: Sinus Tachycardia Rhythm change?: N MD Notified?: - MD Response: Latest Huggins Fall Score: 50 Fall Risk: High Risk Safety Measures: Call light Within Reach, Bed Alarm Zone 1, Side Rails Side Rails x3, Bed position Low and Locked. Fall Precautions: Yellow Socks Yellow Gown Door Sign Patient Fall Education Report given to Alisia Marroquin RN.
--- NOTE | 2020-08-06 07:23 | NUR ---
NURSE NOTES: Pt received from Tacho Ravi RN. Pt is obtunded; opens eyes spontaneously; aphasic; unable to follow commands; gag reflex is intact; bilat pupils are equal and round 4mm with sluggish rxn to light. Pt is on BIPAP 10/5 FiO2 40%. Lung palomares diminished upon auscultation. SpO2 99%. 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 radial and dorsalis pedis pulses 2+. cap refill less than 3 sec. GT noted clamped - pt is NPO (will f/u with nutrition recommendations). Abd is round, soft, and non-tender. Bowel sounds active to all quadrants. F/C noted draining clear, yellow urine. Skin alterations present. Pt has a REJ 18 IV running D5W at 100 cc/hr. Bed in lowest position, alarm on, side rails up x 3 and padded per seizure precaution; call light within reach. Will continue to monitor.
--- NOTE | 2020-08-06 07:28 | NUR ---
RESPIRATORY NOTE: PT received stable on BiPAP with current settings: / RR:14, 40%. Alarms are on and audible. No s/s of respiratory distress note at this time. ABG to be drawn. Will continue to closely monitor.
--- NOTE | 2020-08-06 07:57 | NUR ---
NURSE NOTES: Message left for Dr Begum with the following: -Potassium 3.2 (need replacement) -Hgb 8.2 (clarification for Hgb goal) -requested parameters for subcut heparin Awaiting call back.
--- NOTE | 2020-08-06 08:00 | NUR ---
NURSE NOTES: Pt cleaned and repositioned. Axillary temp noted 100.2 F. ice packs applied to axilla. PO care provided. No distress noted.
--- NOTE | 2020-08-06 08:05 | NUR ---
CASE MANAGEMENT:REVIEW 69YR OLD FEMALE BIBA FROM [facility]; SOB PMH: WOUNDS SI: SEPSIS. LEUKOCYTOSIS. UTI 99.0 130 24 140/70 96% ON 15L NRB WBC+30.3 PT+37 INR+3.8 PTT>150 IS: PLACED ON BIPAP IV VANCOMYCIN IV ROCEPHIN IV FLAGYL IV DECADRON 1L NS BOLUS URINE/BLOOD CULTURE CHEST XRAY : ADMITTED TO ICU DCP: FROM SNF
--- NOTE | 2020-08-06 08:08 | NUR ---
RESPIRATORY NOTE: ABG drawn at this time. Results reported to Alisia GARZON.
--- NOTE | 2020-08-06 08:11 | NUR ---
RD ASSESSMENT & RECOMMENDATIONS SEE CARE ACTIVITY FOR COMPLETE ASSESSMENT DAILY ESTIMATED NEEDS: Needs based on underweight, wounds, DM 36kg 30-40 kcals/kg 3479-3139 total kcals 1.25-2 g protein/kg 45-72 g total protein 25-35ml/kcal mL/kg 900-1260 total fluid mLs NUTRITION DIAGNOSIS: Swallowing difficulty R/T dysphagia as evidenced by pt is Gtube dependent. CURRENT TF:NPO ENTERAL NUTRITION RECOMMENDATIONS: Glucerna 1.2 @50ml x24 hrs to provide 1200ml, 1440 kcal, 72g pro, 966ml free H2O - On bipap, as medically able rec Glucerna 1.2, carb control. - Start @30ml/hr for 6hrs, advance as tolerated 10ml/hr q4-6 hrs to goal. - Flush per MD/ HOB over 30 degrees ADDITIONAL RECOMMENDATIONS: - Per SNF: 5'3" and 78lbs/35.45kg. - Check lytes daily, replete as needed (K 3.2) - Wound care: add LINA BID when TF is at goal TF @ goal provides 100% RDI Vit C 500mg BID, Zn SO4 220mg/day for 10 days . .
--- NOTE | 2020-08-06 08:42 | NUR ---
NURSE NOTES: Received call back from Dr Begum with OK to administer subcut heparin this am, Hgb goal of 7 and above, and administer 40 meQ KDUR GT once.
--- NOTE | 2020-08-06 08:51 | Consultation ---
History of Present Illness General Date patient seen: Aug 06, 2020 Time patient seen: 11:17 Chief Complaint: Dyspnea/Respdistress Referring physician: PCP Reason for Consultation: Pneumonia Present Illness HPI 69yo F w/ multiple medical problems, CVA, non-verbal, bed-bound, who was recently admitted for pna and COVID+, now re-admitted for acute hypoxic resp failure requiring BiPAP in ICU. ID c/s given pna. In house, pt has been AF, HDS but w/ significant leukocytosis to 30, improving slightly today. She is on BiPAP in ICU, satting 100%, BP stable. Overall stable Pt non-verbal. History obtained from chart review and d/w staff technologist. Allergies: Coded Allergies: ERYTHROMYCIN BASE (Verified Allergy, Unknown, 11/12/16) Medication History Scheduled Ascorbic Acid* (Vitamin C*), 500 MG ORAL DAILY, (Reported) Atorvastatin Calcium* (Lipitor*), 10 MG PO BEDTIME, (Reported) Benztropine Mesylate* (Benztropine Mesylate*), 1 MG PO DAILY, (Reported) Cholecalciferol (Vitamin D3) (Vitamin D3), 125 MCG GT DAILY, (Reported) Docusate Sodium (Docusate Sodium), 100 MG PO DAILY, (Reported) Enoxaparin* (Lovenox*), 40 MG SUBQ Q12HR, (Reported) Insulin Aspart (Novolog), SUBQ Q6HR, (Reported) Levetiracetam (Levetiracetam), 500 MG GT BID, (Reported) Midodrine* (Proamatine*), 10 MG GT Q8HR, (Reported) Multivitamin With Minerals (Multivitamins With Minerals*), 1 TAB GT DAILY, (Reported) Potassium Chloride* (K-Dur*), 20 MEQ GT TWICE A DAY, (Reported) Scheduled PRN Acetaminophen* (Acetaminophen 325MG Tablet*), 650 MG ORAL Q4H PRN for MILD PAIN/TEMP > 101F, (Reported) Bisacodyl (Bisacodyl), 10 MG RC DAILY PRN for Constipation, (Reported) Clonidine Hcl* (Catapres*), 0.1 MG PO Q8HR PRN for HYPERTENSION, (Reported) Discontinued Medications Amino Acids/Protein Hydrolys (Pro-Stat Liquid), 30 ML ORAL DAILY, (Reported) Discontinued Reason: Therapy completed Cholecalciferol (Vitamin D3) (Vitamin D3*), 125 MCG GT DAILY, (Reported) Discontinued Reason: Prescription changed Enoxaparin* (Lovenox*), 60 MG SUBQ EVERY 12 HOURS, (Reported) Discontinued Reason: Prescription changed Magnesium Hydroxide* (Milk Of Magnesia*), 30 ML GT DAILY, (Reported) Discontinued Reason: Therapy completed Patient History Limited by: medical condition Healthcare decision maker Resuscitation status Advanced Directive on File Review of Systems ROS Narrative Unable to assess 2/2 pt condition Physical Exam Physical Exam Narrative Gen: NAD HEENT: NCAT Pulm: BL chest rise on BiPAP Abd: Non-distended, thin, soft Ext: No c/c/e, very thin Skin: No visible rashes Neuro: Eyes closed, not interactive Valderrama present Last 24 Hour Vital Signs Date Time Temp Pulse Resp B/P (MAP) Pulse Ox O2 Delivery O2 Flow Rate FiO2 08/06/20 07:00 106 25 118/62 (80) 100 08/06/20 06:00 102 25 105/53 (70) 100 08/06/20 05:00 104 25 114/57 (76) 100 08/06/20 04:00 99.1 106 25 123/59 (80) 100 08/06/20 04:00 104 08/06/20 04:00 Bi-pap 08/06/20 03:47 105 24 100 40 08/06/20 03:00 106 25 120/56 (77) 100 08/06/20 02:00 103 23 106/55 (72) 100 08/06/20 01:00 110 20 120/56 (77) 100 08/06/20 00:00 99.2 112 29 124/67 (86) 100 08/06/20 00:00 Bi-pap 08/06/20 00:00 110 08/05/20 23:39 40 08/05/20 23:39 110 26 100 50 08/05/20 23:00 109 25 105/66 (79) 100 08/05/20 22:00 112 24 104/55 (71) 99 08/05/20 21:00 114 24 104/63 (77) 100 08/05/20 20:00 99.0 115 22 131/104 (113) 100 08/05/20 20:00 114 08/05/20 20:00 Bi-pap 08/05/20 19:37 117 24 100 65 08/05/20 19:37 50 08/05/20 19:00 116 24 110/72 (85) 100 08/05/20 18:00 114 23 115/78 (90) 100 08/05/20 17:00 117 29 119/72 (88) 99 08/05/20 16:00 65 08/05/20 16:00 Bi-pap 08/05/20 16:00 65 08/05/20 16:00 99.2 112 20 99/69 (79) 100 08/05/20 16:00 112 08/05/20 15:00 109 28 126/73 (90) 100 08/05/20 15:00 111 17 100 80 08/05/20 14:00 108 27 123/64 (83) 100 08/05/20 13:00 109 30 123/63 (83) 100 08/05/20 12:00 98.5 112 29 108/61 (77) 100 08/05/20 12:00 80 08/05/20 12:00 Bi-pap 08/05/20 11:00 110 31 113/57 (75) 97 08/05/20 10:30 121 31 100 Bi-Pap 80 08/05/20 10:30 Bi-pap 08/05/20 10:30 99.0 119 33 116/56 100 Bi-pap 15.0 100 08/05/20 10:30 113 08/05/20 10:30 80 08/05/20 10:30 121 31 100 80 08/05/20 10:26 98.3 114 30 113/41 (65) 98 08/05/20 09:06 99.0 119 33 116/56 100 Bi-pap 15.0 100 Intake and Output 08/05/20 08/06/20 19:00 07:00 Intake Total 660.0 ml 1237.5 ml Output Total 645 ml 360 ml Balance 15.0 ml 877.5 ml Intake IV Total 660.0 ml 1237.5 ml Output Urine Total 645 ml 360 ml Laboratory Tests Test 08/05/20 14:40 08/06/20 04:10 08/06/20 08:08 Sodium Level 145 MMOL/L (136-145) 145 MMOL/L (136-145) Potassium Level 3.9 MMOL/L (3.5-5.1) 3.2 MMOL/L (3.5-5.1) L Chloride Level 110 MMOL/L (98-107) H 110 MMOL/L (98-107) H Carbon Dioxide Level 28 MMOL/L (21-32) 29 MMOL/L (21-32) Anion Gap 8 mmol/L (5-15) 6 mmol/L (5-15) Blood Urea Nitrogen 26 mg/dL (7-18) H 20 mg/dL (7-18) H Creatinine 0.5 MG/DL (0.55-1.30) L 0.5 MG/DL (0.55-1.30) L Estimat Glomerular Filtration Rate > 60 mL/min (>60) > 60 mL/min (>60) Glucose Level 190 MG/DL (74-106) H 153 MG/DL (74-106) H Calcium Level 9.4 MG/DL (8.5-10.1) 9.1 MG/DL (8.5-10.1) Total Bilirubin 0.3 MG/DL (0.2-1.0) 0.3 MG/DL (0.2-1.0) Aspartate Amino Transf (AST/SGOT) 19 U/L (15-37) 13 U/L (15-37) L Alanine Aminotransferase (ALT/SGPT) 37 U/L (12-78) 27 U/L (12-78) Alkaline Phosphatase 99 U/L (46-116) 102 U/L (46-116) Total Protein 7.2 G/DL (6.4-8.2) 6.7 G/DL (6.4-8.2) Albumin 1.9 G/DL (3.4-5.0) L 1.7 G/DL (3.4-5.0) L Globulin 5.3 g/dL 5.0 g/dL Albumin/Globulin Ratio 0.4 (1.0-2.7) L 0.3 (1.0-2.7) L White Blood Count 27.7 K/UL (4.8-10.8) *H Red Blood Count 2.92 M/UL (4.20-5.40) L Hemoglobin 8.2 G/DL (12.0-16.0) L Hematocrit 25.6 % (37.0-47.0) L Mean Corpuscular Volume 88 FL (80-99) Mean Corpuscular Hemoglobin 28.0 PG (27.0-31.0) Mean Corpuscular Hemoglobin Concent 31.9 G/DL (32.0-36.0) L Red Cell Distribution Width 15.5 % (11.6-14.8) H Platelet Count 251 K/UL (150-450) Mean Platelet Volume 10.2 FL (6.5-10.1) H Neutrophils (%) (Auto) % (45.0-75.0) Lymphocytes (%) (Auto) % (20.0-45.0) Monocytes (%) (Auto) % (1.0-10.0) Eosinophils (%) (Auto) % (0.0-3.0) Basophils (%) (Auto) % (0.0-2.0) Neutrophils % (Manual) Pending Lymphocytes % (Manual) Pending Platelet Estimate Pending Platelet Morphology Pending Erythrocyte Sedimentation Rate 131 MM/HR (0-30) H Prothrombin Time 13.0 SEC (9.30-11.50) H Prothromb Time International Ratio 1.2 (0.9-1.1) H Activated Partial Thromboplast Time 28 SEC (23-33) Hemoglobin A1c 6.1 % (4.3-6.0) H Lactic Acid Level 1.00 mmol/L (0.4-2.0) Prealbumin Pending Amylase Level 132 U/L (25-115) H Lipase 101 U/L (73-393) Arterial Blood pH 7.494 (7.350-7.450) Arterial Blood Partial Pressure CO2 37.2 mmHg (35.0-45.0) Arterial Blood Partial Pressure O2 117.4 mmHg (75.0-100.0) H Arterial Blood HCO3 28.0 mmol/L (22.0-26.0) H Arterial Blood Oxygen Saturation 98.4 % (95-100) Arterial Blood Base Excess 4.5 (-2-2) H Eduardo Test Positive Height (Feet): 5 Height (Inches): 2.00 Weight (Pounds): 85 Medications Current Medications Medications (Trade) Dose Ordered Sig/Alvarado Route PRN Reason Start Time Stop Time Status Last Admin Dose Admin Acetaminophen (Tylenol) 650 mg Q4H PRN GT Mild Pain (Pain Scale 1-3) 08/05/20 11:30 09/04/20 11:29 Acetaminophen (Tylenol) 650 mg Q4H PRN GT TEMP > 100.5 08/05/20 11:45 09/04/20 11:44 Dextrose 1,000 ml @ 100 mls/hr Q10H IV 08/05/20 14:00 09/04/20 13:59 08/05/20 23:04 Heparin Sodium (Porcine) (Heparin 5000 units/ml) 5,000 units EVERY 12 HOURS SUBQ 08/05/20 21:00 09/19/20 20:59 08/05/20 21:12 Levetiracetam (Keppra) 500 mg Q12HR GT 08/05/20 21:00 09/04/20 20:59 08/05/20 21:09 Pantoprazole (Protonix) 40 mg DAILY IVP 08/06/20 09:00 09/05/20 08:59 Piperacillin Sod/ Tazobactam Sod 3.375 gm/Sodium Chloride 110 ml @ 27.5 mls/hr Q8HR IVPB 08/05/20 14:00 08/12/20 13:59 08/06/20 05:55 Potassium Chloride (K-Dur) 40 meq ONCE ONCE ORAL 08/06/20 08:45 08/06/20 08:46 UNV Sodium Hypochlorite (Dakin's Quarter Strength) 1 applic DAILY TOPIC 08/06/20 09:00 09/05/20 08:59 [facility] 1 ea DAILY PRN MISC . 08/05/20 14:00 09/04/20 13:59 Vancomycin HCl 750 mg/Sodium Chloride 275 ml @ 183.333 mls/hr Q24H IVPB 08/06/20 08:00 08/11/20 07:59 Assessment/Plan Assessment/Plan: 69yo F with: Acute hypoxic resp failure requiring BiPAP Afebrile Leukocytosis to 30, improving Pneumonia UTI Recent COVID dx 07/20/2008/05 BCx p UA 30-40 WBC, UCx >100k GNRs Resp cx p COVID p CXR: Left infrahilar and basilar infiltrate, likely pneumonia. Questionable infiltrates on the right as well. 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 Lymphopenia Hypoxic w/ NC O2 requirement, r/o PNA 07/08 BCx NTD UA+, UCx <10k GNR COVID rapid test neg, PCR neg CXR: No acute process 07/14 UCx +yeast (colonizer) +RLE DVT on US 07/09 Elevated LFTs 67 / 120 Abd TTP 06/29 Abd US wnl Acute hep panel neg Cr 0.5 HIV screen neg PMH: DM CHF Dementia SNF resident Plan: Cont empiric vanco/Zosyn #2 for pna +/- UTI Remove valderrama and replace if same valderrama from SNF still in palce F/u BCx F/u UCx + GNRs F/u sputum cx Trend WBC - improving slowly 07/17 SP Zosyn #7 07/10 SP CTX #2 Monitor CBC/CMP Monitor temp curve, hemodynamics Monitor resp status D/w RN Thank you for this consult. [facility] will continue to follow. Beth Marsh M.D. Aug 06, 2020 08:51
[2020-08-06] MEDS: Vancomycin 750 MG in NS 275 ML IVPB SCH (08:54)
[2020-08-06] MEDS: levETIRAcetam 500mg/5ml Liquid GT SCH ×2 (08:55→21:17)
[2020-08-06] MEDS: Dakin's 0.125% Soln (Quarter Strength) 16oz TOPIC SCH (08:55)
[2020-08-06] MEDS: Heparin 5000 units/ml inj SUBQ SCH ×2 (08:56→21:29)
[2020-08-06] MEDS ORDERED: Pantoprazole Inj IVP SCH (09:00)
--- NOTE | 2020-08-06 09:32 | NUR ---
NURSE NOTES: spoke to Dr Marsh over phone- clarified MRSA swab order - OK to cancel (pt has Hx of MRSA during recent admission) - already placed on contact isolation. Addendum: 08/06/20 at 0956 by Alisia Bond RN Late entry: Dr Marsh also made aware of WBC trending down today
--- NOTE | 2020-08-06 10:00 | NUR ---
NURSE NOTES: Pt repositioned. Seen by Dr Ovalle. Tube feeding started per order. Will continue to monitor.
--- NOTE | 2020-08-06 11:03 | NUR ---
RESPIRATORY NOTE: FiO2 titrated, post ABG result, to 30%. Current Spo2 : 100%. All VS wnl. Pt tolerating well. Alisia GARZON made aware. Will continue to monitor. Addendum: 08/06/20 at 1234 by THONG MEADE RT Time of note typed in error. Actual time of FiO2 titration to 30% was 0830.
--- NOTE | 2020-08-06 11:04 | NUR ---
RESPIRATORY NOTE: FiO2 titrated, 21%. Current Spo2 : 100%. All VS wnl. Pt tolerating well. Alisia GARZON made aware. Will continue to monitor.
--- NOTE | 2020-08-06 11:25 | NUR ---
NURSE NOTES: Spoke with Tato from Vascular lab - confirmed venous duplex procedure ordered for today.
--- NOTE | 2020-08-06 11:34 | NUR ---
NURSE NOTES: Pt seen by Dr Honeycutt - bryanna for today reviewed.
--- NOTE | 2020-08-06 11:47 | Consultation ---
Consult Note Consult Note I am asked to evaluate the patient at the request of Dr. Abarca for oliguria and fluid and electrolyte management Patient seen in ICU. Known to me from her previous admission. Labs reviewed. Discussed with RN. Patient on BiPAP Blood pressure 90s Patient is a 69-year-old female presents for increased respiratory distress. Prior history of coronavirus infection. Patient had recent increased respiratory difficulty as well as decreased oxygen saturation. 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 Per EMS patient is full code. Patient did not have any advanced directives noted. Patient was reportedly tested positive for Covid approximate 10 days ago. Patient had been started on nonrebreather by paramedics and had improvement in her oxygen saturation to the 90s. Prior history of tracheostomy. Allergies: ERYTHROMYCIN BASE (Verified Allergy, Unknown, 11/12/16) Hx Cardiac Problems: Yes - Atherosclerotic heart disease, Anemia Hx Hypertension: Yes Hx COPD: Yes - Resp. failure Hx Diabetes: Yes - Type 2 Hx Gastrointestinal Problems: Yes Hx Neurological Problems: Yes - Generalized muscle weakness, Epilepsy Hx Epilepsy: Yes Physical Exam Gen: NAD HEENT: NCAT Pulm: BL chest rise on BiPAP Abd: Non-distended, thin, soft Ext: No c/c/e, very thin Skin: No visible rashes Neuro: Eyes closed, not interactive Gallardo present Last 24 Hour Vital Signs Date Time Temp Pulse Resp B/P (MAP) Pulse Ox O2 Delivery O2 Flow Rate FiO2 08/06/20 07:00 106 25 118/62 (80) 100 08/06/20 06:00 102 25 105/53 (70) 100 08/06/20 05:00 104 25 114/57 (76) 100 08/06/20 04:00 99.1 106 25 123/59 (80) 100 08/06/20 04:00 104 08/06/20 04:00 Bi-pap 08/06/20 03:47 105 24 100 40 08/06/20 03:00 106 25 120/56 (77) 100 08/06/20 02:00 103 23 106/55 (72) 100 08/06/20 01:00 110 20 120/56 (77) 100 08/06/20 00:00 99.2 112 29 124/67 (86) 100 08/06/20 00:00 Bi-pap 08/06/20 00:00 110 08/05/20 23:39 40 08/05/20 23:39 110 26 100 50 08/05/20 23:00 109 25 105/66 (79) 100 08/05/20 22:00 112 24 104/55 (71) 99 08/05/20 21:00 114 24 104/63 (77) 100 08/05/20 20:00 99.0 115 22 131/104 (113) 100 08/05/20 20:00 114 08/05/20 20:00 Bi-pap 08/05/20 19:37 117 24 100 65 08/05/20 19:37 50 08/05/20 19:00 116 24 110/72 (85) 100 08/05/20 18:00 114 23 115/78 (90) 100 08/05/20 17:00 117 29 119/72 (88) 99 08/05/20 16:00 65 08/05/20 16:00 Bi-pap 08/05/20 16:00 65 08/05/20 16:00 99.2 112 20 99/69 (79) 100 08/05/20 16:00 112 08/05/20 15:00 109 28 126/73 (90) 100 08/05/20 15:00 111 17 100 80 08/05/20 14:00 108 27 123/64 (83) 100 08/05/20 13:00 109 30 123/63 (83) 100 08/05/20 12:00 98.5 112 29 108/61 (77) 100 08/05/20 12:00 80 08/05/20 12:00 Bi-pap 08/05/20 11:00 110 31 113/57 (75) 97 08/05/20 10:30 121 31 100 Bi-Pap 80 08/05/20 10:30 Bi-pap 08/05/20 10:30 99.0 119 33 116/56 100 Bi-pap 15.0 100 08/05/20 10:30 113 08/05/20 10:30 80 08/05/20 10:30 121 31 100 80 08/05/20 10:26 98.3 114 30 113/41 (65) 98 08/05/20 09:06 99.0 119 33 116/56 100 Bi-pap 15.0 100 Intake and Output 08/05/20 08/06/20 19:00 07:00 Intake Total 660.0 ml 1237.5 ml Output Total 645 ml 360 ml Balance 15.0 ml 877.5 ml Intake IV Total 660.0 ml 1237.5 ml Output Urine Total 645 ml 360 ml . . Assessment/Plan Patient is admitted with sepsis, leukocytosis, hypoxia Patient has evidence of UTI Electrolyte imbalances, hypokalemia Hypotension, blood pressure hovering 90 systolic Anemia Hyperglycemia Seizure disorder Plan: IV changed to half-normal saline Start Midodrin Potassium supplement Monitor renal parameters Anemia work-up Per orders Gabriele Honeycutt MD Aug 06, 2020 11:47
--- NOTE | 2020-08-06 12:00 | NUR ---
NURSE NOTES: Pt repositioned. Afebrile with cooling measures Received order from Dr Abarca to wean pt off Bipap - OK to place on non-rebreather or venturi mask as tolerated to keep spO2 above 92 &. Hgb A1C also reported - received order to start pt on average subcut Novolog scale q 6 hrs. Addendum: 08/06/20 at 1220 by Alisia Bond RN Amendment: Pt repositioned. Afebrile with cooling measures Received order from Dr Abarca to wean pt off Bipap - OK to place on non-rebreather or venturi mask as tolerated to keep spO2 above 92 %. Hgb A1C also reported - received order to start pt on average subcut Novolog scale q 6 hrs.
[2020-08-06] MEDS: 1/2NS w/KCl 20mEq 1000ml 1,000 ML IV SCH (12:59)
[2020-08-06] MEDS: Midodrine 10mg tab ORAL SCH ×2 (13:01→21:00)
--- NOTE | 2020-08-06 13:39 | NUR ---
RESPIRATORY NOTE: PT was placed on Venturi 4 Lpm 30% FiO2 Per MD order to remove BiPAP and place PT on oxygen. RT remained in room for 10 minutes to asses for desaturation or increased WOB but none were found. Alisia GARZON norified. BiPaP on standby. PT tolerating well with no s/s of respiratory distress noted at this time. Will continue to monitor.
--- NOTE | 2020-08-06 13:40 | NUR ---
NURSE NOTES: Pt placed on 4 L O2 via venturi mask - FiO2 30 %. SpO2 100%.
[2020-08-06 13:56] LABS: PHOSPHORUS 2.4 MG/DL (2.5-4.9)
--- NOTE | 2020-08-06 14:00 | NUR ---
NURSE NOTES: Pt repositioned. No distress noted.
[2020-08-06 14:01] LABS: % IRON SATURATION 17 % (15-50); IRON 24 ug/dL (50-175); TOTAL IRON BINDING CAPACITY 139 ug/dL (250-450)
--- NOTE | 2020-08-06 14:57 | Surgery Progress Note ---
Surgery Progress Note Subjective Additional Comments ill appearing on support labs noted wbc lip dec Objective Last 24 Hour Vital Signs Date Time Temp Pulse Resp B/P (MAP) Pulse Ox O2 Delivery O2 Flow Rate FiO2 08/06/20 14:00 90 19 112/49 (70) 100 08/06/20 13:40 4.0 30 08/06/20 13:39 91 18 100 30 08/06/20 13:00 88 18 134/112 (119) 98 08/06/20 12:00 97.8 81 16 116/69 (85) 99 08/06/20 12:00 88 08/06/20 12:00 Bi-pap 08/06/20 11:17 21 08/06/20 11:03 88 20 100 21 08/06/20 11:00 89 17 117/61 (79) 100 08/06/20 10:00 99 22 113/60 (77) 100 08/06/20 09:00 108 25 128/61 (83) 100 08/06/20 08:30 100 25 100 30 08/06/20 08:20 30 08/06/20 08:00 100.2 107 25 124/66 (85) 100 08/06/20 08:00 Bi-pap 08/06/20 08:00 105 08/06/20 08:00 40 08/06/20 07:28 107 26 100 40 08/06/20 07:00 106 25 118/62 (80) 100 08/06/20 06:00 102 25 105/53 (70) 100 08/06/20 05:00 104 25 114/57 (76) 100 08/06/20 04:00 99.1 106 25 123/59 (80) 100 08/06/20 04:00 104 08/06/20 04:00 Bi-pap 08/06/20 03:47 105 24 100 40 08/06/20 03:00 106 25 120/56 (77) 100 08/06/20 02:00 103 23 106/55 (72) 100 08/06/20 01:00 110 20 120/56 (77) 100 08/06/20 00:00 99.2 112 29 124/67 (86) 100 08/06/20 00:00 Bi-pap 08/06/20 00:00 110 08/05/20 23:39 40 08/05/20 23:39 110 26 100 50 08/05/20 23:00 109 25 105/66 (79) 100 08/05/20 22:00 112 24 104/55 (71) 99 08/05/20 21:00 114 24 104/63 (77) 100 08/05/20 20:00 99.0 115 22 131/104 (113) 100 08/05/20 20:00 114 08/05/20 20:00 Bi-pap 08/05/20 19:37 117 24 100 65 08/05/20 19:37 50 08/05/20 19:00 116 24 110/72 (85) 100 08/05/20 18:00 114 23 115/78 (90) 100 08/05/20 17:00 117 29 119/72 (88) 99 08/05/20 16:00 65 08/05/20 16:00 Bi-pap 08/05/20 16:00 65 08/05/20 16:00 99.2 112 20 99/69 (79) 100 08/05/20 16:00 112 08/05/20 15:00 109 28 126/73 (90) 100 08/05/20 15:00 111 17 100 80 I&O Intake and Output 08/05/20 08/06/20 19:00 07:00 Intake Total 660.0 ml 1237.5 ml Output Total 645 ml 360 ml Balance 15.0 ml 877.5 ml IV Total 660.0 ml 1237.5 ml Output Urine Total 645 ml 360 ml Dressing: saturated Cardiovascular: RSR Respiratory: decreased breath sounds Abdomen: non-tender, decreased bowel sounds Extremities: edema, no tenderness, no cyanosis Laboratory Tests Test 08/06/20 04:10 08/06/20 08:08 08/06/20 12:40 White Blood Count 27.7 K/UL (4.8-10.8) *H Red Blood Count 2.92 M/UL (4.20-5.40) L Hemoglobin 8.2 G/DL (12.0-16.0) L Hematocrit 25.6 % (37.0-47.0) L Mean Corpuscular Volume 88 FL (80-99) Mean Corpuscular Hemoglobin 28.0 PG (27.0-31.0) Mean Corpuscular Hemoglobin Concent 31.9 G/DL (32.0-36.0) L Red Cell Distribution Width 15.5 % (11.6-14.8) H Platelet Count 251 K/UL (150-450) Mean Platelet Volume 10.2 FL (6.5-10.1) H Neutrophils (%) (Auto) % (45.0-75.0) Lymphocytes (%) (Auto) % (20.0-45.0) Monocytes (%) (Auto) % (1.0-10.0) Eosinophils (%) (Auto) % (0.0-3.0) Basophils (%) (Auto) % (0.0-2.0) Differential Total Cells Counted 100 Neutrophils % (Manual) 90 % (45-75) H Lymphocytes % (Manual) 9 % (20-45) L Monocytes % (Manual) 1 % (1-10) Eosinophils % (Manual) 0 % (0-3) Basophils % (Manual) 0 % (0-2) Band Neutrophils 0 % (0-8) Platelet Estimate Adequate Platelet Morphology Normal Hypochromasia 2+ Anisocytosis 2+ Erythrocyte Sedimentation Rate 131 MM/HR (0-30) H Prothrombin Time 13.0 SEC (9.30-11.50) H Prothromb Time International Ratio 1.2 (0.9-1.1) H Activated Partial Thromboplast Time 28 SEC (23-33) Sodium Level 145 MMOL/L (136-145) Potassium Level 3.2 MMOL/L (3.5-5.1) L Chloride Level 110 MMOL/L (98-107) H Carbon Dioxide Level 29 MMOL/L (21-32) Anion Gap 6 mmol/L (5-15) Blood Urea Nitrogen 20 mg/dL (7-18) H Creatinine 0.5 MG/DL (0.55-1.30) L Estimat Glomerular Filtration Rate > 60 mL/min (>60) Glucose Level 153 MG/DL (74-106) H Hemoglobin A1c 6.1 % (4.3-6.0) H Lactic Acid Level 1.00 mmol/L (0.4-2.0) Calcium Level 9.1 MG/DL (8.5-10.1) Total Bilirubin 0.3 MG/DL (0.2-1.0) Aspartate Amino Transf (AST/SGOT) 13 U/L (15-37) L Alanine Aminotransferase (ALT/SGPT) 27 U/L (12-78) Alkaline Phosphatase 102 U/L (46-116) Total Protein 6.7 G/DL (6.4-8.2) Albumin 1.7 G/DL (3.4-5.0) L Globulin 5.0 g/dL Albumin/Globulin Ratio 0.3 (1.0-2.7) L Prealbumin Pending Amylase Level 132 U/L (25-115) H Lipase 101 U/L (73-393) Arterial Blood pH 7.494 (7.350-7.450) Arterial Blood Partial Pressure CO2 37.2 mmHg (35.0-45.0) Arterial Blood Partial Pressure O2 117.4 mmHg (75.0-100.0) H Arterial Blood HCO3 28.0 mmol/L (22.0-26.0) H Arterial Blood Oxygen Saturation 98.4 % (95-100) Arterial Blood Base Excess 4.5 (-2-2) H Eduardo Test Positive Uric Acid 1.7 MG/DL (2.6-7.2) L Phosphorus Level 2.4 MG/DL (2.5-4.9) L Magnesium Level 2.2 MG/DL (1.8-2.4) Iron Level 24 ug/dL (50-175) L Total Iron Binding Capacity 139 ug/dL (250-450) L Percent Iron Saturation 17 % (15-50) Unsaturated Iron Binding 115 ug/dL (112-346) Vitamin B12 Level 1641 PG/ML (193-986) H Folate 15.9 NG/ML (8.6-58.9) Plan Problems: (1) Leukocytosis Assessment & Plan: (1) Fever (2) Leukocytosis Assessment & Plan: on abx id input appreciated wounds not infected nutrition (3) Tachycardia (4) Decubitus skin ulcer (5) Pyelonephritis (6) Malnutrition (7) Sepsis Assessment & Plan: ill appearing poor skin turgor leukocytosis anemia h/h low trending prbc prn Needs based on underweight, DM 35.5kg 30-40 kcals/kg 5474-5693 total kcals 1.25-2 g protein/kg 44-71 g total protein 25-35ml/kcal mL/kg [id number] total fluid mLs NUTRITION DIAGNOSIS: Swallowing difficulty R/T dysphagia as evidenced by pt is Gtube dependent. ENTERAL NUTRITION RECOMMENDATIONS: Glucerna 1.2 @50ml x24 hrs to provide 1200ml, 1440 kcal, 72g pro, 966ml free H2O - As able rec carb control formula for h/o DM. - Start @30ml/hr for 6 hrs, advance as tolerated 10ml/hr q4-6 hrs to goal. - Flush per MD/ HOB over 30 degrees ADDITIONAL RECOMMENDATIONS: - Per SNF: 5'3" and 78lbs/35.45kg. - Check lytes daily, replete as needed - A1c for eval of glycemic control - Wound care: advanced per RN, f/up with WC RN. Add LINA BID w/ GT, Vit C 250mg BID Assessment & Plan: leukocytosis lactic acidosis malnutrition underweight bmi 13 micro noted on abx as per ID cont abx wounds unlikely etiology will follow with local care and evaluation to ensure improving thank you There is a slight degree of image degradation due to motion artifact. The right upper lobe is largely clear following may be some interstitial septal thickening in the apex. The right middle lobe is clear. The right lower lobe demonstrates some atelectasis at the right lung base. There is also a focal 6 mm nodular opacity, image 50 series 5. There is a vague mosaic attenuation pattern. Left upper lobe demonstrates scattered areas of mosaic attenuation superiorly image 10 of series 5 demonstrates a 3 mm left upper lobe nodule.. Irregular consolidative opacities are seen in the inferior left upper lobe. More extensive consolidation in a patchy and irregular distribution are seen in the left lower lobe. There is a small left pleural effusion. The heart is upper limits of normal in size. The ascending thoracic aorta is m ildly ectatic. No mediastinal or hilar mass or adenopathy. Unremarkable. No axillary or chest wall mass or adenopathy demonstrated. The bones are unremarkable except for minimal degenerative spondylosis changes and slight anterior bowing of the sternum. The included lung bases demonstrate a gastrostomy which appears well-positioned. There is trace ascites Impression: Opacities in the left lower lobe and also to a lesser extent in the left upper lobe and minimally in the right lower lobe. Appearance is consistent with consolidation rather than mass. Most likely represents pneumonia, appearance nonspecific as regards etiology. Patchy pulmonary edema also possible, among other possibilities Small left pleural effusion Bilateral small nodules, as described. No further follow-up necessary if there are no risk factors for lung carcinoma. There are significant risk factors, then short interval follow-up CT in 6-12 months is recommended Trace ascites (2) Fever (3) Decubitus skin ulcer Assessment & Plan: Emaciated pt whom [presented on admission with Contractures, GT and Multiple Pressure Injuries. DTPI Thoracic Spine(L)1.4cm x (W)0.9cm. Base of Pressure Injury is indurated, Pupuric with surrounding maroon borders. Full Thickness stage 4 Sacral Pressure Injury(L)4.5cm x (W)3.7cm x(D)2.5cm, Undermined Borders clockwise 12-6 by 3.1cm@12o'clock. Base of wound is arleen. Bone is palpable at base of wound. Scattered slough along loose edges. Small amt serous exudate noted. Wound is malodorous. Non- Blanching erythema without induration periwound. Full thickness stage 4 Pressure Injury L trochanter(L)6.5cm x (W)9cm x 1.4cm. Undermining clockwise 7-5 by 2.6cm @12o'clock. Base of wound 60% fibrinous slough, 40% moist and pink. Bone exposure at base of wound. Edges are detached with scattered slough along borders. Small amt seropurulent exudate noted. Wound is malodorous. Periwound is maroon and indurated. Unstageable Pressure Injury R heel (L)0.6cm x (W)0.6cm.Stable dry eschar with attached edges. Surrounding Heel is boggy with Non-Blanchable erythema. DTPI lateral R Malleolus (L)1.5cm x (W)2.2cm. Base of wound is maroon and fluctuant. No evidence of further skin breakdown periwound. Unstageable Pressure Injury Dorsal R 1st metatarsal(L)0.8cm x (W)1.2cm. Dry eschar with marginal erythema along adherent borders Periwound is erythematous without fluctuance or induration. Non-Blanchable erythema with fluctuance distal/lateral L foot (L)1cm x (W)1cm. Unstageable Pressure Injury L Hallux (L)2.2cm x (W)1.5cm. Dry eschar with surrounding non-blanchable erythema.with fluctuance. Unstageable Pressure Injury Achilles L foot (L)1.5cm x (W)1.5 cm. Stable dry eschar with surrounding Non-blanchable erythema extending into plantar aspect of L heel. L heel is boggy.. Tx.Plan: Apply Cavilon Skin Barrier to Thoracic DTPI . Cover with Optifoam drsg. Change every 7 days and prn. Cleanse Sacral Wound with Dakin's 0.25% Nicki. Loosely pack wound with Dakin's moistened Kerlix. Apply Triad Paste periwound. Cover with Optifoam drsg Daily and prn. Cleanse L trochanteric Wound with Dakin's 0.25% nicki. Loosely pack with Dakin's moistened Kerlix. Apply Triad Paste Periwound. Cover with Optifoam drsg Daily and prn. Apply Betadine to Necrotic areas of L Foot . Cover each site with Optifoam drsg. Change every 3 days and prn. Apply Betadine to To Pressure Injuires R Foot. Cover each site with Optifoam drsgs. Change every 3 days and prn. Reposition at least every 2hours or as tolerated. Off-load heels with Pillow. APM/SOLOMON Mattress overlay. (4) Sepsis (5) Malnutrition Chao Ovalle Aug 06, 2020 14:57
--- NOTE | 2020-08-06 15:00 | NUR ---
NURSE NOTES: FiO2 weaned to 2L at 24 %.
--- NOTE | 2020-08-06 16:00 | NUR ---
NURSE NOTES: Pt repositioned. PO care provided. Afebrile with cooling measures. No distress noted.
--- NOTE | 2020-08-06 16:45 | Diagnostic Imaging Report ---
EXAM: ULTRASOUND Venous Duplex Scan Hari Leg CLINICAL HISTORY: Leg pain and edema. COMPARISON: None TECHNIQUE: Doppler examination include grayscale images obtained with and without compression, and color and spectral doppler analysis. FINDINGS: Study is limited due to severe extreme contracture of the lower extremities. Doppler examination shows normal spontaneity, phasicity, compressibility in the bilateral lower extremities to the extent visualized. There is no thrombus identified by grayscale. Normal color and spectral flow is identified. There is no evidence of valvular incompetency or insufficiency. IMPRESSION: NO EVIDENCE OF DVT TO THE EXTENT VISUALIZED.
[2020-08-06] MEDS: NovoLOG Insulin Flexpen SUBQ SCH (17:00)
--- NOTE | 2020-08-06 17:51 | NUR ---
NURSE NOTES: Pt seen by Dr Abarca. OK to transfer pt to [facility].
--- NOTE | 2020-08-06 18:00 | NUR ---
NURSE NOTES: Pt repositioned and cleaned. No distress noted.
--- NOTE | 2020-08-06 18:08 | General Progress Note ---
Subjective Constitutional: Reports: no symptoms HEENT: Reports: no symptoms Cardiovascular: Reports: no symptoms Respiratory: Reports: no symptoms Gastrointestinal/Abdominal: Reports: no symptoms Genitourinary: Reports: no symptoms Neurologic/Psychiatric: Reports: no symptoms Endocrine: Reports: no symptoms Hematologic/Lymphatic: Reports: no symptoms Allergies: Coded Allergies: ERYTHROMYCIN BASE (Verified Allergy, Unknown, 11/12/16) Objective Last 24 Hour Vital Signs Date Time Temp Pulse Resp B/P (MAP) Pulse Ox O2 Delivery O2 Flow Rate FiO2 08/06/20 17:00 92 21 103/46 (65) 100 08/06/20 16:00 99 08/06/20 16:00 Venturi Mask 2.0 08/06/20 16:00 98.0 90 18 91/42 (58) 98 08/06/20 15:00 2.0 24 08/06/20 15:00 96 24 116/51 (72) 100 08/06/20 14:58 97 19 98 2.0 24 08/06/20 14:00 90 19 112/49 (70) 100 08/06/20 13:40 4.0 30 08/06/20 13:39 91 18 100 4.0 30 08/06/20 13:00 88 18 134/112 (119) 98 08/06/20 12:00 97.8 81 16 116/69 (85) 99 08/06/20 12:00 88 08/06/20 12:00 Bi-pap 08/06/20 11:17 21 08/06/20 11:03 88 20 100 21 08/06/20 11:00 89 17 117/61 (79) 100 08/06/20 10:00 99 22 113/60 (77) 100 08/06/20 09:00 108 25 128/61 (83) 100 08/06/20 08:30 100 25 100 30 08/06/20 08:20 30 08/06/20 08:00 100.2 107 25 124/66 (85) 100 08/06/20 08:00 Bi-pap 08/06/20 08:00 105 08/06/20 08:00 40 08/06/20 07:28 107 26 100 40 08/06/20 07:00 106 25 118/62 (80) 100 08/06/20 06:00 102 25 105/53 (70) 100 08/06/20 05:00 104 25 114/57 (76) 100 08/06/20 04:00 99.1 106 25 123/59 (80) 100 08/06/20 04:00 104 08/06/20 04:00 Bi-pap 08/06/20 03:47 105 24 100 40 08/06/20 03:00 106 25 120/56 (77) 100 08/06/20 02:00 103 23 106/55 (72) 100 08/06/20 01:00 110 20 120/56 (77) 100 08/06/20 00:00 99.2 112 29 124/67 (86) 100 08/06/20 00:00 Bi-pap 08/06/20 00:00 110 08/05/20 23:39 40 08/05/20 23:39 110 26 100 50 08/05/20 23:00 109 25 105/66 (79) 100 08/05/20 22:00 112 24 104/55 (71) 99 08/05/20 21:00 114 24 104/63 (77) 100 08/05/20 20:00 99.0 115 22 131/104 (113) 100 08/05/20 20:00 114 08/05/20 20:00 Bi-pap 08/05/20 19:37 117 24 100 65 08/05/20 19:37 50 08/05/20 19:00 116 24 110/72 (85) 100 Intake and Output0 08/05/20 08/06/20 19:00 07:00 Intake Total 660.0 ml 1237.5 ml Output Total 645 ml 360 ml Balance 15.0 ml 877.5 ml IV Total 660.0 ml 1237.5 ml Output Urine Total 645 ml 360 ml Laboratory Tests 08/06/20 04:10: White Blood Count 27.7*H, Red Blood Count 2.92L, Hemoglobin 8.2L, Hematocrit 25.6L, Mean Corpuscular Volume 88, Mean Corpuscular Hemoglobin 28.0, Mean Corpuscular Hemoglobin Concent 31.9L, Red Cell Distribution Width 15.5H, Platelet Count 251, Mean Platelet Volume 10.2H, Neutrophils (%) (Auto) , Lymphocytes (%) (Auto) , Monocytes (%) (Auto) , Eosinophils (%) (Auto) , Basophi ls (%) (Auto) , Differential Total Cells Counted 100, Neutrophils % (Manual) 90H , Lymphocytes % (Manual) 9L, Monocytes % (Manual) 1, Eosinophils % (Manual) 0, Basophils % (Manual) 0, Band Neutrophils 0, Platelet Estimate Adequate, Platelet Morphology Normal, Hypochromasia 2+, Anisocytosis 2+, Erythrocyte Sedimentation Rate 131H, Prothrombin Time 13.0H, Prothromb Time International Ratio 1.2H, Activated Partial Thromboplast Time 28, Sodium Level 145, Potassium Level 3.2L, Chloride Level 110H, Carbon Dioxide Level 29, Anion Gap 6, Blood Urea Nitrogen 20H, Creatinine 0.5L, Estimat Glomerular Filtration Rate > 60, Glucose Level 153H, Hemoglobin A1c 6.1H, Lactic Acid Level 1.00, Calcium Level 9.1, Total Bilirubin 0.3, Aspartate Amino Transf (AST/SGOT) 13L, Alanine Aminotransferase (ALT/SGPT) 27, Alkaline Phosphatase 102, Total Protein 6.7, Albumin 1.7L, Globulin 5.0, Albumin/Globulin Ratio 0.3L, Prealbumin [Pending], Amylase Level 132H, Lipase 101 08/06/20 08:08: Arterial Blood pH 7.494H, Arterial Blood Partial Pressure CO2 37.2, Arterial Blood Partial Pressure O2 117.4H, Arterial Blood HCO3 28.0H, Arterial Blood Oxygen Saturation 98.4, Arterial Blood Base Excess 4.5H, Eduardo Test Positive 08/06/20 12:40: Uric Acid 1.7L, Phosphorus Level 2.4L, Magnesium Level 2.2, Iron Level 24L, Total Iron Binding Capacity 139L, Percent Iron Saturation 17, Unsaturated Iron Binding 115, Vitamin B12 Level 1641H, Folate 15.9 Height (Feet): 5 Height (Inches): 2.00 Weight (Pounds): 85 General Appearance: no apparent distress, lethargic EENT: normal ENT inspection Neck: supple Cardiovascular: normal rate, regular rhythm, no gallop/murmur, no JVD Respiratory/Chest: no respiratory distress, no accessory muscle use, decreased breath sounds Abdomen: normal bowel sounds, non tender, soft, no organomegaly, no mass Extremities: non-tender Neurologic: unresponsive, other - Obtunded but more responsive than yesterday Skin: warm/dry Assessment/Plan Status Narrative Patient is afebrile hemodynamically stable with borderline tachycardia to be more reactive and moving arms with purposeful movement on physical examination lungs are clear with decreased breath sounds in both bases heart irregular sounds abdomen is flat extremities are without edema she is currently on va ncomycin and Zosyn WBC declined moderately from 32 to 27 hours patient hemodynamically stable she can be transferred out to the cardiac observation unit patient problem discussed with the nursing staff laboratory tests will be done in a.m. Gale Mays MD, MD Aug 06, 2020 18:08
--- NOTE | 2020-08-06 19:03 | NUR ---
NURSE HAND-OFF REPORT: Latest Vital Signs: Temperature 98.0 , Pulse 78 , B/P 120 /83 , Respiratory Rate 14 , O2 SAT 100 , Venturi mask, FiO2 24%, O2 Flow Rate 2.0 L . Vital Sign Comment: stable EKG Rhythm: Sinus Rhythm Rhythm change?: N Notified?: Clementine Abarca MD Response: No New Orders Received Latest Huggins Fall Score: 50 Fall Risk: High Risk Safety Measures: Call light Within Reach, Bed Alarm Zone 1, Side Rails Side Rails x3, Bed position Low and Locked. Fall Precautions: Yellow Socks Yellow Gown Door Sign Patient Fall Education Report given to Vern. Endorsed pt to transfer to [facility] once bed is available.
--- NOTE | 2020-08-06 19:45 | NUR ---
REPORT RECEIVED FROM DURAN ANDERSON
[2020-08-06] MEDS: Pantoprazole Inj IVP SCH (21:17)
[2020-08-07] VITALS (15 sets, daily range): BP systolic 81–130; BP diastolic 40–68
[2020-08-07] MEDS: 1/2NS w/KCl 20mEq 1000ml 1,000 ML IV SCH ×2 (03:20→16:40)
--- NOTE | 2020-08-07 05:07 | Cardiology Report ---
APPROVED REPORT EKG Measurement Heart [id number] <Conclusion> Sinus tachycardia Biatrial enlargement Septal infarct, age undetermined Abnormal ECG
[2020-08-07] MEDS: NovoLOG Insulin Flexpen SUBQ SCH ×4 (06:00→18:00)
[2020-08-07] MEDS: Piperacillin/Tazobactam 3.375 GM in NS 110 ML IVPB SCH (06:11)
[2020-08-07] MEDS: Midodrine 10mg tab ORAL SCH ×3 (06:11→21:48)
--- NOTE | 2020-08-07 07:41 | Hematology/Onc Progress Note ---
Assessment/Plan Assessment/Plan Assessment and Recs # Leukocytosis with likely sepsis due to pna --> ON ABX vanc/zosyn --> is on ivfs --> abx as per ID --> imaging noted --> wbc 28 # Right lower extremity dvt --> h/h to low for anticoag --> consider repeat lower duplex at this time --> consider ivcf # Anemia due to chronic disease --> hgb 10-->8.2 # Respiratory distress --> r/o covid --> per pulm # Dysphagia s/p peg # CVA hx # HL --> lipitor and asa # Tachycardia --> ivfs should improve # Dvt ppx heparin sq Subjective HEENT: Denies: no symptoms, eye pain, blurred vision, tearing, double vision, ear pain, ear discharge, nose pain, nose congestion, throat pain, throat swelling, mouth pain, mouth swelling, other Cardiovascular: Denies: no symptoms, chest pain, edema, irregular heart rate, lightheadedness, palpitations, syncope, other Respiratory: Denies: no symptoms, cough, shortness of breath, SOB with excertion, SOB at rest, sputum, wheezing, other Genitourinary: Denies: no symptoms, burning, discharge, frequency, flank pain, hematuria, incontinence, pain, urgency, other Endocrine: Denies: no symptoms, excessive sweating, flushing, intolerance to cold, intolerance to heat, increased hunger, increased thirst, increased urine, unexplained weight gain, unexplained weight loss, other Allergies: Coded Allergies: ERYTHROMYCIN BASE (Verified Allergy, Unknown, 11/12/16) Objective Objective Current Medications Medications (Trade) Dose Ordered Sig/Alvarado Route PRN Reason Start Time Stop Time Status Last Admin Dose Admin Acetaminophen (Tylenol) 650 mg Q4H PRN GT Mild Pain (Pain Scale 1-3) 08/05/20 11:30 09/04/20 11:29 Acetaminophen (Tylenol) 650 mg Q4H PRN GT TEMP > 100.5 08/05/20 11:45 09/04/20 11:44 Dextrose (Dextrose 50%) 25 ml Q30M PRN IV Hypoglycemia 08/06/20 12:00 11/04/20 11:59 Dextrose (Dextrose 50%) 50 ml Q30M PRN IV Hypoglycemia 08/06/20 12:00 11/04/20 11:59 Heparin Sodium (Porcine) (Heparin 5000 units/ml) 5,000 units EVERY 12 HOURS SUBQ 08/05/20 21:00 09/19/20 20:59 08/06/20 21:29 Insulin Aspart (NovoLOG) Q6HR SUBQ 08/06/20 18:00 11/04/20 17:59 Levetiracetam (Keppra) 500 mg Q12HR GT 08/05/20 21:00 09/04/20 20:59 08/06/20 21:17 Midodrine (Pro-Amatine) 10 mg Q8HR ORAL 08/06/20 14:00 11/04/20 13:59 08/07/20 06:11 Pantoprazole (Protonix) 40 mg Q12HR IVP 08/06/20 21:00 09/05/20 08:59 08/06/20 21:17 Piperacillin Sod/ Tazobactam Sod 3.375 gm/Sodium Chloride 110 ml @ 27.5 mls/hr Q8HR IVPB 08/05/20 14:00 08/12/20 13:59 08/07/20 06:11 Sodium 1,000 ml @ 75 mls/hr [id number] IV 08/06/20 14:00 09/05/20 13:59 08/07/20 03:20 Sodium Hypochlorite (Dakin's Quarter Strength) 1 applic DAILY TOPIC 08/06/20 09:00 09/05/20 08:59 08/06/20 08:55 Vancomycin HCl (Vanco pharmacy to dose) 1 ea DAILY PRN MISC . 08/05/20 14:00 09/04/20 13:59 Vancomycin HCl 750 mg/Sodium Chloride 275 ml @ 183.333 mls/hr Q24H IVPB 08/06/20 08:00 08/11/20 07:59 08/06/20 08:54 Last 24 Hour Vital Signs Date Time Temp Pulse Resp B/P (MAP) Pulse Ox O2 Delivery O2 Flow Rate FiO2 08/07/20 06:00 97 29 100 08/07/20 06:00 97 27 100 08/07/20 05:00 97 27 100 08/07/20 05:00 97 27 122/56 (78) 100 08/07/20 05:00 96 21 100 08/07/20 04:00 Venturi Mask 2.0 08/07/20 04:00 97 25 116/56 (76) 100 08/07/20 04:00 97 25 116/56 (76) 100 08/07/20 04:00 96 21 100 08/07/20 04:00 99 08/07/20 03:00 96 21 100 08/07/20 03:00 96 21 105/58 (74) 100 08/07/20 03:00 96 21 105/58 (74) 100 08/07/20 02:38 98 20 117/54 (75) 99 08/07/20 02:38 98 20 117/54 (75) 99 08/07/20 02:38 98 20 117/54 (75) 99 08/07/20 02:26 92 22 95/50 (65) 99 08/07/20 02:26 92 22 95/50 (65) 99 08/07/20 02:26 92 22 95/50 (65) 99 08/07/20 02:08 92 23 81/43 (56) 99 08/07/20 02:08 92 23 81/43 (56) 99 08/07/20 02:08 92 23 81/43 (56) 99 08/07/20 02:00 92 22 85/44 (58) 99 08/07/20 02:00 92 22 85/44 (58) 99 08/07/20 02:00 92 22 85/44 (58) 99 08/07/20 02:00 88 21 100 08/07/20 01:00 88 15 97 08/07/20 01:00 96 20 95/48 (64) 98 08/07/20 01:00 96 20 95/48 (64) 98 08/07/20 00:01 83 18 90/42 (58) 100 08/07/20 00:01 83 18 90/42 (58) 100 08/07/20 00:00 80 17 89/40 (56) 100 08/07/20 00:00 99 08/07/20 00:00 Venturi Mask 2.0 08/07/20 00:00 80 17 89/40 (56) 100 08/07/20 00:00 88 15 97 08/06/20 23:00 88 15 97 08/06/20 23:00 88 15 97 08/06/20 23:00 98.0 78 14 120/83 (95) 100 08/06/20 22:45 66 15 100 08/06/20 22:30 74 15 96 08/06/20 22:15 76 15 96 08/06/20 22:00 98.0 78 14 120/83 (95) 100 08/06/20 22:00 64 14 106/38 (60) 100 08/06/20 22:00 64 14 106/38 (60) 100 08/06/20 21:56 98.0 78 14 120/83 (95) 100 08/06/20 21:45 79 18 96 08/06/20 21:30 78 15 96 08/06/20 21:15 60 13 100 08/06/20 21:00 74 14 136/51 (79) 98 08/06/20 21:00 74 14 136/51 (79) 98 08/06/20 20:45 78 16 08/06/20 20:30 74 15 08/06/20 20:15 75 18 94 08/06/20 20:07 78 08/06/20 20:02 98.0 78 14 120/83 (95) 100 08/06/20 20:02 Venturi Mask 08/06/20 20:00 79 15 98/73 (81) 98 08/06/20 20:00 79 15 98/73 (81) 98 08/06/20 19:05 100 Venturi Mask 3.0 28 08/06/20 19:00 78 14 120/83 (95) 100 08/06/20 19:00 78 14 120/83 (95) 100 08/06/20 18:00 89 18 98/43 (61) 99 08/06/20 18:00 88 18 98/43 (61) 99 08/06/20 17:00 92 21 103/46 (65) 100 08/06/20 16:00 99 08/06/20 16:00 Venturi Mask 2.0 08/06/20 16:00 98.0 90 18 91/42 (58) 98 08/06/20 15:00 2.0 24 08/06/20 15:00 96 24 116/51 (72) 100 08/06/20 14:58 97 19 98 2.0 24 08/06/20 14:00 90 19 112/49 (70) 100 08/06/20 13:40 4.0 30 08/06/20 13:39 100 Venturi Mask 4.0 30 08/06/20 13:39 91 18 100 4.0 30 08/06/20 13:00 88 18 134/112 (119) 98 08/06/20 12:00 97.8 81 16 116/69 (85) 99 08/06/20 12:00 88 08/06/20 12:00 Bi-pap 08/06/20 11:17 21 08/06/20 11:03 88 20 100 21 08/06/20 11:00 89 17 117/61 (79) 100 08/06/20 10:00 99 22 113/60 (77) 100 08/06/20 09:00 108 25 128/61 (83) 100 08/06/20 08:30 100 25 100 30 08/06/20 08:20 30 08/06/20 08:00 100.2 107 25 124/66 (85) 100 08/06/20 08:00 Bi-pap 08/06/20 08:00 105 08/06/20 08:00 40 08/06/20 07:28 107 26 100 40 08/06/20 07:00 106 25 118/62 (80) 100 08/06/20 06:00 102 25 105/53 (70) 100 08/06/20 05:00 104 25 114/57 (76) 100 08/06/20 04:30 104 22 118/58 (78) 100 08/06/20 04:30 104 22 118/58 (78) 100 08/06/20 04:15 103 21 115/68 (84) 100 08/06/20 04:15 103 21 115/68 (84) 100 08/06/20 04:00 99.1 106 25 123/59 (80) 100 08/06/20 04:00 106 25 123/59 (80) 100 08/06/20 04:00 104 08/06/20 04:00 Bi-pap 08/06/20 04:00 99.1 106 25 123/59 (80) 100 08/06/20 03:47 105 24 100 40 08/06/20 03:45 105 22 117/60 (79) 100 08/06/20 03:45 105 22 117/60 (79) 100 08/06/20 03:30 105 24 111/56 (74) 100 08/06/20 03:30 105 24 111/56 (74) 100 08/06/20 03:15 106 24 121/60 (80) 100 08/06/20 03:15 106 24 121/60 (80) 100 08/06/20 03:00 106 25 120/56 (77) 100 08/06/20 03:00 106 25 120/56 (77) 100 08/06/20 03:00 106 25 120/56 (77) 100 08/06/20 02:45 103 24 113/57 (75) 100 08/06/20 02:45 103 24 113/57 (75) 100 08/06/20 02:30 105 19 118/62 (80) 100 08/06/20 02:30 105 19 118/62 (80) 100 08/06/20 02:15 102 23 110/57 (74) 100 08/06/20 02:15 102 23 110/57 (74) 100 08/06/20 02:00 103 23 106/55 (72) 100 08/06/20 02:00 103 23 106/55 (72) 100 08/06/20 02:00 103 23 106/55 (72) 100 08/06/20 01:45 101 23 104/60 (75) 100 08/06/20 01:45 101 23 104/60 (75) 100 08/06/20 01:30 102 26 122/59 (80) 92 08/06/20 01:30 102 26 122/59 (80) 92 08/06/20 01:15 102 21 107/56 (73) 99 08/06/20 01:15 102 21 107/56 (73) 99 08/06/20 01:00 110 20 120/56 (77) 100 08/06/20 01:00 110 20 120/56 (77) 100 08/06/20 01:00 110 20 120/56 (77) 100 08/06/20 00:45 110 28 116/73 (87) 97 08/06/20 00:45 110 28 116/73 (87) 97 08/06/20 00:30 111 28 126/62 (83) 99 08/06/20 00:30 111 28 126/62 (83) 99 08/06/20 00:15 113 28 126/59 (81) 100 08/06/20 00:15 113 28 126/59 (81) 100 08/06/20 00:00 99.2 112 29 124/67 (86) 100 08/06/20 00:00 112 29 124/67 (86) 100 08/06/20 00:00 Bi-pap 08/06/20 00:00 112 29 124/67 (86) 100 08/06/20 00:00 110 08/05/20 23:39 40 08/05/20 23:39 110 26 100 50 08/05/20 23:00 109 25 105/66 (79) 100 08/05/20 22:00 112 24 104/55 (71) 99 08/05/20 21:00 114 24 104/63 (77) 100 08/05/20 20:00 99.0 115 22 131/104 (113) 100 08/05/20 20:00 114 08/05/20 20:00 Bi-pap 08/05/20 19:37 117 24 100 65 08/05/20 19:37 50 08/05/20 19:00 116 24 110/72 (85) 100 08/05/20 18:00 114 23 115/78 (90) 100 08/05/20 17:00 117 29 119/72 (88) 99 08/05/20 16:00 65 08/05/20 16:00 Bi-pap 08/05/20 16:00 65 08/05/20 16:00 99.2 112 20 99/69 (79) 100 08/05/20 16:00 112 08/05/20 15:00 109 28 126/73 (90) 100 08/05/20 15:00 111 17 100 80 08/05/20 14:00 108 27 123/64 (83) 100 08/05/20 13:00 109 30 123/63 (83) 100 08/05/20 12:00 98.5 112 29 108/61 (77) 100 08/05/20 12:00 80 08/05/20 12:00 Bi-pap 08/05/20 11:00 110 31 113/57 (75) 97 08/05/20 10:30 121 31 100 Bi-Pap 80 08/05/20 10:30 Bi-pap 08/05/20 10:30 99.0 119 33 116/56 100 Bi-pap 15.0 100 08/05/20 10:30 113 08/05/20 10:30 80 08/05/20 10:30 121 31 100 80 08/05/20 10:26 98.3 114 30 113/41 (65) 98 08/05/20 09:06 99.0 119 33 116/56 100 Bi-pap 15.0 100 08/05/20 08:09 133 37 Bi-pap 15.0 100 08/05/20 08:07 99.0 133 37 111/72 100 Bi-pap 15.0 100 08/05/20 07:55 134 39 97 100 Intake and Output 08/06/20 08/07/20 19:00 07:00 Intake Total 1832.80423 ml 770 ml Output Total 1140 ml 550 ml Balance 692.28967 ml 220 ml Intake Free Water 40 ml 220 ml IV Total 1392.35841 ml Tube Feeding 400 ml 550 ml Output Urine Total 1140 ml 550 ml # Bowel Movements 12 Labs Test 08/05/20 07:30 08/05/20 07:39 08/05/20 14:40 08/06/20 04:10 White Blood Count 30.3 K/UL (4.8-10.8) 27.7 K/UL (4.8-10.8) Red Blood Count 3.72 M/UL (4.20-5.40) 2.92 M/UL (4.20-5.40) Hemoglobin 10.1 G/DL (12.0-16.0) 8.2 G/DL (12.0-16.0) Hematocrit 33.1 % (37.0-47.0) 25.6 % (37.0-47.0) Mean Corpuscular Volume 89 FL (80-99) 88 FL (80-99) Mean Corpuscular Hemoglobin 27.0 PG (27.0-31.0) 28.0 PG (27.0-31.0) Mean Corpuscular Hemoglobin Concent 30.4 G/DL (32.0-36.0) 31.9 G/DL (32.0-36.0) Red Cell Distribution Width 15.0 % (11.6-14.8) 15.5 % (11.6-14.8) Platelet Count 286 K/UL (150-450) 251 K/UL (150-450) Mean Platelet Volume 11.3 FL (6.5-10.1) 10.2 FL (6.5-10.1) Neutrophils (%) (Auto) % (45.0-75.0) % (45.0-75.0) Lymphocytes (%) (Auto) % (20.0-45.0) % (20.0-45.0) Monocytes (%) (Auto) % (1.0-10.0) % (1.0-10.0) Eosinophils (%) (Auto) % (0.0-3.0) % (0.0-3.0) Basophils (%) (Auto) % (0.0-2.0) % (0.0-2.0) Differential Total Cells Counted 100 100 Neutrophils % (Manual) 93 % (45-75) 90 % (45-75) Lymphocytes % (Manual) 2 % (20-45) 9 % (20-45) Monocytes % (Manual) 1 % (1-10) 1 % (1-10) Eosinophils % (Manual) 0 % (0-3) 0 % (0-3) Basophils % (Manual) 0 % (0-2) 0 % (0-2) Band Neutrophils 4 % (0-8) 0 % (0-8) Platelet Estimate Adequate Adequate Platelet Morphology Normal Normal Hypochromasia 1+ 2+ Anisocytosis 1+ 2+ Prothrombin Time 37.9 SEC (9.30-11.50) 13.0 SEC (9.30-11.50) Prothromb Time International Ratio 3.8 (0.9-1.1) 1.2 (0.9-1.1) Activated Partial Thromboplast Time > 150 SEC (23-33) 28 SEC (23-33) D-Dimer 2.97 mg/L FEU (0.00-0.49) Urine Color Yellow Urine Appearance Cloudy Urine pH 5 (4.5-8.0) Urine Specific [place] 1.020 (1.005-1.035) Urine Protein 3+ (NEGATIVE) Urine Glucose (UA) Negative (NEGATIVE) Urine Ketones Negative (NEGATIVE) Urine Blood 5+ (NEGATIVE) Urine Nitrite Positive (NEGATIVE) Urine Bilirubin Negative (NEGATIVE) Urine Urobilinogen Normal MG/DL (0.0-1.0) Urine Leukocyte Esterase 3+ (NEGATIVE) Urine RBC 30-40 /HPF (0 - 2) Urine WBC 30-40 /HPF (0 - 2) Urine Squamous Epithelial Cells Few /LPF (NONE/OCC) Urine Bacteria Moderate /HPF (NONE) Urine Mucus Few /LPF (NONE/OCC) Sodium Level 144 MMOL/L (136-145) 145 MMOL/L (136-145) 145 MMOL/L (136-145) Potassium Level 4.2 MMOL/L (3.5-5.1) 3.9 MMOL/L (3.5-5.1) 3.2 MMOL/L (3.5-5.1) Chloride Level 108 MMOL/L (98-107) 110 MMOL/L (98-107) 110 MMOL/L (98-107) Carbon Dioxide Level 29 MMOL/L (21-32) 28 MMOL/L (21-32) 29 MMOL/L (21-32) Anion Gap 7 mmol/L (5-15) 8 mmol/L (5-15) 6 mmol/L (5-15) Blood Urea Nitrogen 31 mg/dL (7-18) 26 mg/dL (7-18) 20 mg/dL (7-18) Creatinine 0.6 MG/DL (0.55-1.30) 0.5 MG/DL (0.55-1.30) 0.5 MG/DL (0.55-1.30) Estimat Glomerular Filtration Rate > 60 mL/min (>60) > 60 mL/min (>60) > 60 mL/min (>60) Glucose Level 171 MG/DL (74-106) 190 MG/DL (74-106) 153 MG/DL (74-106) Lactic Acid Level 1.70 mmol/L (0.4-2.0) 1.00 mmol/L (0.4-2.0) Calcium Level 9.7 MG/DL (8.5-10.1) 9.4 MG/DL (8.5-10.1) 9.1 MG/DL (8.5-10.1) Phosphorus Level 3.2 MG/DL (2.5-4.9) Magnesium Level 2.2 MG/DL (1.8-2.4) Ferritin 642 NG/ML (8-388) Total Bilirubin 0.2 MG/DL (0.2-1.0) 0.3 MG/DL (0.2-1.0) 0.3 MG/DL (0.2-1.0) Aspartate Amino Transf (AST/SGOT) 31 U/L (15-37) 19 U/L (15-37) 13 U/L (15-37) Alanine Aminotransferase (ALT/SGPT) 45 U/L (12-78) 37 U/L (12-78) 27 U/L (12-78) Alkaline Phosphatase 117 U/L (46-116) 99 U/L (46-116) 102 U/L (46-116) Lactate Dehydrogenase 200 U/L (81-234) Total Creatine Kinase 35 U/L (26-308) Creatine Kinase MB 0.9 NG/ML (0.0-3.6) Creatine Kinase MB Relative Index 2.5 Troponin I 0.000 ng/mL (0.000-0.056) C-Reactive Protein, Quantitative 25.3 mg/dL (0.00-0.90) Pro-B-Type Natriuretic Peptide 467 pg/mL (0-125) Total Protein 7.7 G/DL (6.4-8.2) 7.2 G/DL (6.4-8.2) 6.7 G/DL (6.4-8.2) Albumin 2.2 G/DL (3.4-5.0) 1.9 G/DL (3.4-5.0) 1.7 G/DL (3.4-5.0) Globulin 5.5 g/dL 5.3 g/dL 5.0 g/dL Albumin/Globulin Ratio 0.4 (1.0-2.7) 0.4 (1.0-2.7) 0.3 (1.0-2.7) Lipase 194 U/L (73-393) 101 U/L (73-393) Arterial Blood pH 7.401 (7.350-7.450) Arterial Blood Partial Pressure CO2 46.2 mmHg (35.0-45.0) Arterial Blood Partial Pressure O2 93.4 mmHg (75.0-100.0) Arterial Blood HCO3 28.0 mmol/L (22.0-26.0) Arterial Blood Oxygen Saturation 96.8 % (95-100) Arterial Blood Base Excess 2.8 (-2-2) Eduardo Test Positive Erythrocyte Sedimentation Rate 131 MM/HR (0-30) Hemoglobin A1c 6.1 % (4.3-6.0) Amylase Level 132 U/L (25-115) Test 08/06/20 08:08 08/06/20 12:40 Arterial Blood pH 7.494 (7.350-7.450) Arterial Blood Partial Pressure CO2 37.2 mmHg (35.0-45.0) Arterial Blood Partial Pressure O2 117.4 mmHg (75.0-100.0) Arterial Blood HCO3 28.0 mmol/L (22.0-26.0) Arterial Blood Oxygen Saturation 98.4 % (95-100) Arterial Blood Base Excess 4.5 (-2-2) Eduardo Test Positive Uric Acid 1.7 MG/DL (2.6-7.2) Phosphorus Level 2.4 MG/DL (2.5-4.9) Magnesium Level 2.2 MG/DL (1.8-2.4) Iron Level 24 ug/dL (50-175) Total Iron Binding Capacity 139 ug/dL (250-450) Percent Iron Saturation 17 % (15-50) Unsaturated Iron Binding 115 ug/dL (112-346) Vitamin B12 Level 1641 PG/ML (193-986) Folate 15.9 NG/ML (8.6-58.9) Height (Feet): 5 Height (Inches): 2.00 Weight (Pounds): 85 Objective Physical Exam Sp02 EP Interpretation: reviewed, normal General Appearance: no apparent distress, non-verbal Head: normocephalic, atraumatic ENT: hearing grossly normal, no angioedema Respiratory: chest non-tender, lungs clear, normal breath sounds,++bipap Cardiovascular: no edema, tachycardia Gastrointestinal: normal bowel sounds, non tender, soft, ++gt Rectal: deferred Musculoskeletal: normal inspection Neurologic: alert, motor strength/tone normal, no focal defects Psychiatric: mood/affect normal Skin: other - See RN skin exam. Lymphatic: no adenopathy Gu: valderrama+++ Nate Begum MD Aug 07, 2020 07:40
--- NOTE | 2020-08-07 08:00 | NUR ---
NURSE NOTES: Pt rcvd awake, alert. No verbal response. Moves bilat upper extremeties, contractures to bilat lower extremeties. dry upper lips with scabs. G-tube with tube feedings infusing without residuals. site clear. Right EJ IV site without redness or signs of infection. IV patent. IV fluid infusing and antibiotics. Dsgs to multiple pressure ulcers CDI. IV started to Left hand with 20g x 1 attempt. site clear with good blood return. Pt on venti mask without resp distress. O2 sats 98%. no s/s of distress. Pt prepared for transfer of SDU.
--- NOTE | 2020-08-07 08:15 | NUR ---
NURSE NOTES: Pt received from RN. Pt is obtunded; opens eyes spontaneously; aphasic; unable to follow commands; Pt is on BIPAP 10/5 FiO2 40%. Diminished lung sounds. SpO2 99%. Pt is on campus monitor with SR-ST. radial and dorsalis pedis pulses 2+. cap refill less than 3 sec. GT noted. Bowel sounds active to all quadrants. F/C noted draining clear, yellow urine. Skin alterations present. Pt has a REJ 18 IV running D5W at 100 cc/hr. Bed in lowest position, alarm on, side rails up x 3 and padded per seizure precaution; call light within reach. Will continue to monitor.
[2020-08-07] MEDS: Vancomycin 750 MG in NS 275 ML IVPB SCH (08:21)
[2020-08-07] MEDS: Pantoprazole Inj IVP SCH ×2 (09:00→20:47)
[2020-08-07] MEDS: levETIRAcetam 500mg/5ml Liquid GT SCH ×2 (09:00→20:47)
[2020-08-07] MEDS: Dakin's 0.125% Soln (Quarter Strength) 16oz TOPIC SCH (09:00)
--- NOTE | 2020-08-07 09:05 | NUR ---
NURSE NOTES: Pt to SDU via bed. No s/s of distress. IV sites patent and clear. no belongings at bedside. pt on telemetry and resp therapist at bedside. Pt transfered on O2.
--- NOTE | 2020-08-07 09:10 | NUR ---
NURSE HAND-OFF REPORT: Important Events on Shift:[None] Patient Status: [no s/s of distress. pt resting quietly] Diet: [Glucerna 1.2 @ 50ml/hr per GTube] Pending Orders: Vanco trough on 08/08 @ 0700] Pending Results/Labs:[None] Pending MD notification:[None] Latest Vital Signs: Temperature 97.0 , Pulse 79 , B/P 121 /60 , Respiratory Rate 22 , O2 SAT 100 , Bi-pap, O2 Flow Rate 2.0 . Vital Sign Comment: [] EKG Rhythm: Sinus Rhythm Rhythm change?: N MD Notified?: N MD Response: No New Orders Received Latest Huggins Fall Score: 50 Fall Risk: High Risk Safety Measures: Call light Within Reach, Bed Alarm Zone 1, Side Rails Side Rails x3, Bed position Low and Locked. Fall Precautions: Yellow Socks Yellow Gown Door Sign Patient Fall Education Report given to [DURAN Mckeon].
--- NOTE | 2020-08-07 09:15 | NUR ---
NURSE NOTES: Pt received from RN. Pt is obtunded; opens eyes spontaneously; aphasic; unable to follow commands; Pt is on BIPAP 10/5 FiO2 40%. Diminished lung sounds. SpO2 99%. 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 radial and dorsalis pedis pulses 2+. cap refill less than 3 sec. GT noted. Bowel sounds active to all quadrants. F/C noted draining clear, yellow urine. Skin alterations present. Pt has a REJ 18 IV running D5W at 100 cc/hr. Bed in lowest position, alarm on, side rails up x 3 and padded per seizure precaution; call light within reach. Will continue to monitor.
--- NOTE | 2020-08-07 09:27 | Infectious Diseases Prog Note ---
Assessment/Plan 69yo F with: Acute hypoxic resp failure requiring BiPAP Afebrile Leukocytosis to 30, improving Pneumonia UTI Recent COVID dx 07/20/2008/05 BCx NTD UA 30-40 WBC, UCx >100k E.coli and P.mirabilis (both terraz[place]-S) Resp cx +SA, sensi p COVID neg CXR: Left infrahilar and basilar infiltrate, likely pneumonia. Questionable infiltrates on the right as well. MRSA nares positive on prior admission Recent h/o COVID pneumonia 07/20/20 Stable resp status, on baseline 3L NC 07/08 COVID rapid and PCR neg 07/20 COVID PCR positive Sepsis Leukocytosis to 21 Afebrile but with fever at [facility] [employer] Lymphopenia Hypoxic w/ NC O2 requirement, r/o PNA 07/08 BCx NTD UA+, UCx <10k GNR COVID rapid test neg, PCR neg CXR: No acute process 07/14 UCx +yeast (colonizer) +RLE DVT on US 07/09 Elevated LFTs 67 / 120 Abd TTP 06/29 Abd US wnl Acute hep panel neg Cr 0.5 HIV screen neg PMH: DM CHF Dementia SNF resident Plan: Stop Zosyn #2 Start CTX 1g IV daily #1 (abx d #3) to cover for UTI Cont vanco IV #3 for pneumonia, Resp cx +SA Remove valderrama and replace if same valderrama from SNF still in palce F/u BCx - NTD F/u sputum cx +SA Trend WBC - improving slowly 08/07 SP Zosyn #2 07/17 SP Zosyn #7 07/10 SP CTX #2 Monitor CBC/CMP Monitor temp curve, hemodynamics Monitor resp status D/w RN Thank you for this consult. [facility] will continue to follow. Subjective Allergies: Coded Allergies: ERYTHROMYCIN BASE (Verified Allergy, Unknown, 11/12/16) AF On Venturi mask on floor now 5L and can likely titrate down lower per RN WBC improving to 15 COVID PCR neg NAD in bed Objective Last 24 Hour Vital Signs Date Time Temp Pulse Resp B/P (MAP) Pulse Ox O2 Delivery O2 Flow Rate FiO2 08/07/20 06:00 97 29 100 08/07/20 06:00 97 27 100 08/07/20 05:00 97 27 100 08/07/20 05:00 97 27 122/56 (78) 100 08/07/20 05:00 96 21 100 08/07/20 04:00 Venturi Mask 2.0 08/07/20 04:00 97 25 116/56 (76) 100 08/07/20 04:00 97 25 116/56 (76) 100 08/07/20 04:00 96 21 100 08/07/20 04:00 99 08/07/20 03:00 96 21 100 08/07/20 03:00 96 21 105/58 (74) 100 08/07/20 03:00 96 21 105/58 (74) 100 08/07/20 02:38 98 20 117/54 (75) 99 08/07/20 02:38 98 20 117/54 (75) 99 08/07/20 02:38 98 20 117/54 (75) 99 08/07/20 02:26 92 22 95/50 (65) 99 08/07/20 02:26 92 22 95/50 (65) 99 08/07/20 02:26 92 22 95/50 (65) 99 08/07/20 02:08 92 23 81/43 (56) 99 08/07/20 02:08 92 23 81/43 (56) 99 08/07/20 02:08 92 23 81/43 (56) 99 08/07/20 02:00 92 22 85/44 (58) 99 08/07/20 02:00 92 22 85/44 (58) 99 08/07/20 02:00 92 22 85/44 (58) 99 08/07/20 02:00 88 21 100 08/07/20 01:00 88 15 97 08/07/20 01:00 96 20 95/48 (64) 98 08/07/20 01:00 96 20 95/48 (64) 98 08/07/20 00:01 83 18 90/42 (58) 100 08/07/20 00:01 83 18 90/42 (58) 100 08/07/20 00:00 80 17 89/40 (56) 100 08/07/20 00:00 99 08/07/20 00:00 Venturi Mask 2.0 08/07/20 00:00 80 17 89/40 (56) 100 08/07/20 00:00 88 15 97 08/06/20 23:00 88 15 97 1/28/21 23:00 88 15 97 08/06/20 23:00 98.0 78 14 120/83 (95) 100 08/06/20 22:45 66 15 100 08/06/20 22:30 74 15 96 08/06/20 22:15 76 15 96 08/06/20 22:00 98.0 78 14 120/83 (95) 100 08/06/20 22:00 64 14 106/38 (60) 100 08/06/20 22:00 64 14 106/38 (60) 100 08/06/20 21:56 98.0 78 14 120/83 (95) 100 08/06/20 21:45 79 18 96 08/06/20 21:30 78 15 96 08/06/20 21:15 60 13 100 08/06/20 21:00 74 14 136/51 (79) 98 08/06/20 21:00 74 14 136/51 (79) 98 08/06/20 20:45 78 16 08/06/20 20:30 74 15 08/06/20 20:15 75 18 94 08/06/20 20:07 78 08/06/20 20:02 98.0 78 14 120/83 (95) 100 08/06/20 20:02 Venturi Mask 08/06/20 20:00 79 15 98/73 (81) 98 08/06/20 20:00 79 15 98/73 (81) 98 08/06/20 19:05 100 Venturi Mask 3.0 28 08/06/20 19:00 78 14 120/83 (95) 100 08/06/20 19:00 78 14 120/83 (95) 100 08/06/20 18:00 89 18 98/43 (61) 99 08/06/20 18:00 88 18 98/43 (61) 99 08/06/20 17:00 92 21 103/46 (65) 100 08/06/20 16:00 99 08/06/20 16:00 Venturi Mask 2.0 08/06/20 16:00 98.0 90 18 91/42 (58) 98 08/06/20 15:00 2.0 24 08/06/20 15:00 96 24 116/51 (72) 100 08/06/20 14:58 97 19 98 2.0 24 08/06/20 14:00 90 19 112/49 (70) 100 08/06/20 13:40 4.0 30 08/06/20 13:39 100 Venturi Mask 4.0 30 08/06/20 13:39 91 18 100 4.0 30 08/06/20 13:00 88 18 134/112 (119) 98 08/06/20 12:00 97.8 81 16 116/69 (85) 99 08/06/20 12:00 88 08/06/20 12:00 Bi-pap 08/06/20 11:17 21 08/06/20 11:03 88 20 100 21 08/06/20 11:00 89 17 117/61 (79) 100 08/06/20 10:00 99 22 113/60 (77) 100 Height (Feet): 5 Height (Inches): 2.00 Weight (Pounds): 85 Gen: NAD in bed HEENT: NCAT CV: RRR Pulm: CTAB Abd: Soft, NTND Ext: No c/c/e Neuro: Awake but not interactive Microbiology Date/Time Source Procedure Growth Status 08/05/20 16:00 Sputum Gram Stain - Final Resulted 08/05/20 16:00 Sputum Culture - Preliminary Staphylococcus Aureus Usual Respiratory Savita Resulted 08/05/20 14:40 Blood Blood Culture - Preliminary NO GROWTH AFTER 24 HOURS Resulted 08/05/20 09:50 Nasopharynx Coronavirus COVID-19 PCR (DAIN) - Final Complete 08/05/20 07:30 Urine,Clean Catch Urine Culture - Final Escherichia Coli Proteus Mirabilis Complete 08/05/20 07:30 Blood Blood Culture - Preliminary NO GROWTH AFTER 24 HOURS Resulted Laboratory Tests Test 08/06/20 12:40 Uric Acid 1.7 MG/DL (2.6-7.2) L Phosphorus Level 2.4 MG/DL (2.5-4.9) L Magnesium Level 2.2 MG/DL (1.8-2.4) Iron Level 24 ug/dL (50-175) L Total Iron Binding Capacity 139 ug/dL (250-450) L Percent Iron Saturation 17 % (15-50) Unsaturated Iron Binding 115 ug/dL (112-346) Vitamin B12 Level 1641 PG/ML (193-986) H Folate 15.9 NG/ML (8.6-58.9) Current Medications Medications (Trade) Dose Ordered Sig/Alvarado Route PRN Reason Start Time Stop Time Status Last Admin Dose Admin Acetaminophen (Tylenol) 650 mg Q4H PRN GT Mild Pain (Pain Scale 1-3) 08/05/20 11:30 09/04/20 11:29 Acetaminophen (Tylenol) 650 mg Q4H PRN GT TEMP > 100.5 08/05/20 11:45 09/04/20 11:44 Dextrose (Dextrose 50%) 25 ml Q30M PRN IV Hypoglycemia 08/06/20 12:00 11/04/20 11:59 Dextrose (Dextrose 50%) 50 ml Q30M PRN IV Hypoglycemia 08/06/20 12:00 11/04/20 11:59 Heparin Sodium (Porcine) (Heparin 5000 units/ml) 5,000 units EVERY 12 HOURS SUBQ 08/05/20 21:00 09/19/20 20:59 08/06/20 21:29 Insulin Aspart (NovoLOG) Q6HR SUBQ 08/06/20 18:00 11/04/20 17:59 Levetiracetam (Keppra) 500 mg Q12HR GT 08/05/20 21:00 09/04/20 20:59 08/06/20 21:17 Midodrine (Pro-Amatine) 10 mg Q8HR ORAL 08/06/20 14:00 11/04/20 13:59 08/07/20 06:11 Pantoprazole (Protonix) 40 mg Q12HR IVP 08/06/20 21:00 09/05/20 08:59 08/06/20 21:17 Piperacillin Sod/ Tazobactam Sod 3.375 gm/Sodium Chloride 110 ml @ 27.5 mls/hr Q8HR IVPB 08/05/20 14:00 08/12/20 13:59 08/07/20 06:11 Sodium 1,000 ml @ 75 mls/hr [id number] IV 08/06/20 14:00 09/05/20 13:59 08/07/20 03:20 Sodium Hypochlorite (Dakin's Quarter Strength) 1 applic DAILY TOPIC 08/06/20 09:00 09/05/20 08:59 08/06/20 08:55 Vancomycin HCl (Vanco pharmacy to dose) 1 ea DAILY PRN MISC . 08/05/20 14:00 09/04/20 13:59 Vancomycin HCl 750 mg/Sodium Chloride 275 ml @ 183.333 mls/hr Q24H IVPB 08/06/20 08:00 08/11/20 07:59 08/07/20 08:21 Beth Marsh M.D. Aug 07, 2020 09:27
[2020-08-07 10:04] LABS: HEMATOCRIT 23.1 % (37.0-47.0); HEMOGLOBIN 7.3 G/DL (12.0-16.0); MEAN CORPUSCULAR VOLUME 88 FL (80-99); PLATELET COUNT 234 K/UL (150-450); RED BLOOD COUNT 2.63 M/UL (4.20-5.40); RED CELL DISTRIBUTION WIDTH 14.9 % (11.6-14.8); WHITE BLOOD COUNT 15.2 K/UL (4.8-10.8)
--- NOTE | 2020-08-07 10:30 | NUR ---
NURSE NOTES: per Dr Marsh, DUNCAN droplet isolation, pt is covid negative. Pt is on room air with O2 sat 95-98%
[2020-08-07] MEDS: Heparin 5000 units/ml inj SUBQ SCH ×2 (10:45→20:48)
--- NOTE | 2020-08-07 10:52 | NUR ---
CASE MANAGEMENT:REVIEW 08/07/20 SI: RESPIRATORY FAILURE. PNA. UTI 98.0 94 25 130/68 99% ON VENTURI MASK W/2L/28% WBC+15.2 H/H-7.3/23.1 IS: IV VANCOMYCIN Q24 IV ZOSYN Q8HRS IV PROTONIX Q12 IVF@75/HR KEPPRA GT Q12 HEPARIN SQ Q12 MIDODRINE PO Q8HRS : ICU...TRANSFER TO STEP DOWN UNIT DCP: FROM [facility]
--- NOTE | 2020-08-07 11:00 | NUR ---
RESPIRATORY NOTE: Patient placed on 2LPM nasal cannula and SpO2 99%-100%. Removed nasal cannula and SpO2 98%-100%. No signs of respiratory distress or SOB noted at this time. Will continue to monitor. RN notified.
--- NOTE | 2020-08-07 13:15 | NUR ---
NURSE NOTES: wound care performed, wound pics uploaded, oral care done
[2020-08-07] MEDS: cefTRIAXone 1 GM in D5W 55 ML IVPB SCH (13:16)
--- NOTE | 2020-08-07 13:26 | Nephrology Progress Note ---
Assessment/Plan Problem List: (1) Electrolyte imbalance (2) Sepsis (3) UTI (urinary tract infection) (4) Dehydration (5) Anemia (6) Hyperglycemia (7) Seizure disorder Assessment Patient is admitted with sepsis, leukocytosis, hypoxia Patient has evidence of UTI Electrolyte imbalances, hypokalemia Hypotension, blood pressure hovering 90 systolic Anemia Hyperglycemia Seizure disorder Plan August 07: No CHEM panel drawn today. K-Phos given. Medication list reviewed. Check labs tomorrow. Continue per consultants. IV changed to half-normal saline Start Midodrin Potassium supplement Monitor renal parameters Anemia work-up Per orders Subjective ROS Limited/Unobtainable: No Constitutional: Reports: malaise, weakness Objective Objective Last 24 Hour Vital Signs Date Time Temp Pulse Resp B/P (MAP) Pulse Ox O2 Delivery O2 Flow Rate FiO2 08/07/20 12:00 Venturi Mask 2.0 08/07/20 12:00 97.0 79 22 121/60 (80) 100 08/07/20 11:32 2.0 24 08/07/20 08:00 94 25 130/68 (88) 99 08/07/20 08:00 Venturi Mask 2.0 08/07/20 07:05 99 Venturi Mask 3.0 28 08/07/20 07:00 95 29 130/63 (85) 100 08/07/20 06:00 97 29 100 08/07/20 06:00 97 27 100 08/07/20 05:00 97 27 100 08/07/20 05:00 97 27 122/56 (78) 100 08/07/20 05:00 96 21 100 08/07/20 04:00 Venturi Mask 2.0 08/07/20 04:00 97 25 116/56 (76) 100 08/07/20 04:00 97 25 116/56 (76) 100 08/07/20 04:00 96 21 100 08/07/20 04:00 99 08/07/20 03:00 96 21 100 08/07/20 03:00 96 21 105/58 (74) 100 08/07/20 03:00 96 21 105/58 (74) 100 08/07/20 02:38 98 20 117/54 (75) 99 08/07/20 02:38 98 20 117/54 (75) 99 08/07/20 02:38 98 20 117/54 (75) 99 08/07/20 02:26 92 22 95/50 (65) 99 08/07/20 02:26 92 22 95/50 (65) 99 08/07/20 02:26 92 22 95/50 (65) 99 08/07/20 02:08 92 23 81/43 (56) 99 08/07/20 02:08 92 23 81/43 (56) 99 08/07/20 02:08 92 23 81/43 (56) 99 08/07/20 02:00 92 22 85/44 (58) 99 08/07/20 02:00 92 22 85/44 (58) 99 08/07/20 02:00 92 22 85/44 (58) 99 08/07/20 02:00 88 21 100 08/07/20 01:00 88 15 97 08/07/20 01:00 96 20 95/48 (64) 98 08/07/20 01:00 96 20 95/48 (64) 98 08/07/20 00:01 83 18 90/42 (58) 100 08/07/20 00:01 83 18 90/42 (58) 100 08/07/20 00:00 80 17 89/40 (56) 100 08/07/20 00:00 99 08/07/20 00:00 Venturi Mask 2.0 08/07/20 00:00 80 17 89/40 (56) 100 08/07/20 00:00 88 15 97 08/06/20 23:00 88 15 97 08/06/20 23:00 88 15 97 08/06/20 23:00 98.0 78 14 120/83 (95) 100 08/06/20 22:45 66 15 100 08/06/20 22:30 74 15 96 08/06/20 22:15 76 15 96 08/06/20 22:00 98.0 78 14 120/83 (95) 100 08/06/20 22:00 64 14 106/38 (60) 100 08/06/20 22:00 64 14 106/38 (60) 100 08/06/20 21:56 98.0 78 14 120/83 (95) 100 08/06/20 21:45 79 18 96 08/06/20 21:30 78 15 96 08/06/20 21:15 60 13 100 08/06/20 21:00 74 14 136/51 (79) 98 08/06/20 21:00 74 14 136/51 (79) 98 08/06/20 20:45 78 16 08/06/20 20:30 74 15 08/06/20 20:15 75 18 94 08/06/20 20:07 78 08/06/20 20:02 98.0 78 14 120/83 (95) 100 08/06/20 20:02 Venturi Mask 08/06/20 20:00 79 15 98/73 (81) 98 08/06/20 20:00 79 15 98/73 (81) 98 08/06/20 19:05 100 Venturi Mask 3.0 28 08/06/20 19:00 78 14 120/83 (95) 100 08/06/20 19:00 78 14 120/83 (95) 100 08/06/20 18:00 89 18 98/43 (61) 99 08/06/20 18:00 88 18 98/43 (61) 99 08/06/20 17:00 92 21 103/46 (65) 100 08/06/20 16:00 99 08/06/20 16:00 Venturi Mask 2.0 08/06/20 16:00 98.0 90 18 91/42 (58) 98 08/06/20 15:00 2.0 24 08/06/20 15:00 96 24 116/51 (72) 100 08/06/20 14:58 97 19 98 2.0 24 08/06/20 14:00 90 19 112/49 (70) 100 08/06/20 13:40 4.0 30 08/06/20 13:39 100 Venturi Mask 4.0 30 08/06/20 13:39 91 18 100 4.0 30 Intake and Output 08/06/20 08/07/20 19:00 07:00 Intake Total 1832.71803 ml 820 ml Output Total 1140 ml 550 ml Balance 692.25733 ml 270 ml Intake Free Water 40 ml 220 ml IV Total 1392.30740 ml Tube Feeding 400 ml 600 ml Output Urine Total 1140 ml 550 ml # Bowel Movements 12 Current Medications Medications (Trade) Dose Ordered Sig/Alvarado Route PRN Reason Start Time Stop Time Status Last Admin Dose Admin Acetaminophen (Tylenol) 650 mg Q4H PRN GT Mild Pain (Pain Scale 1-3) 08/05/20 11:30 09/04/20 11:29 Acetaminophen (Tylenol) 650 mg Q4H PRN GT TEMP > 100.5 08/05/20 11:45 09/04/20 11:44 Ceftriaxone Sodium 1 gm/ Dextrose 55 ml @ 110 mls/hr Q24H IVPB 08/07/20 13:00 08/14/20 12:59 08/07/20 13:16 Dextrose (Dextrose 50%) 25 ml Q30M PRN IV Hypoglycemia 08/06/20 12:00 11/04/20 11:59 Dextrose (Dextrose 50%) 50 ml Q30M PRN IV Hypoglycemia 08/06/20 12:00 11/04/20 11:59 Heparin Sodium (Porcine) (Heparin 5000 units/ml) 5,000 units EVERY 12 HOURS SUBQ 08/05/20 21:00 09/19/20 20:59 08/07/20 10:45 Insulin Aspart (NovoLOG) Q6HR SUBQ 08/06/20 18:00 11/04/20 17:59 Levetiracetam (Keppra) 500 mg Q12HR GT 08/05/20 21:00 09/04/20 20:59 08/07/20 09:00 Midodrine (Pro-Amatine) 10 mg Q8HR ORAL 08/06/20 14:00 11/04/20 13:59 08/07/20 06:11 Pantoprazole (Protonix) 40 mg Q12HR IVP 08/06/20 21:00 09/05/20 08:59 08/07/20 09:00 Potassium Phosphate 20 mm/ Sodium Chloride 281.6667 ml @ 46.944 m... ONCE ONCE IV 08/07/20 15:00 08/07/20 20:59 Sodium 1,000 ml @ 75 mls/hr [id number] IV 08/06/20 14:00 09/05/20 13:59 08/07/20 03:20 Sodium Hypochlorite (Dakin's Quarter Strength) 1 applic DAILY TOPIC 08/06/20 09:00 09/05/20 08:59 08/07/20 09:00 Vancomycin HCl (Vanco pharmacy to dose) 1 ea DAILY PRN MISC . 08/05/20 14:00 09/04/20 13:59 Vancomycin HCl 750 mg/Sodium Chloride 275 ml @ 183.333 mls/hr Q24H IVPB 08/06/20 08:00 08/11/20 07:59 08/07/20 08:21 Laboratory Tests 08/07/20 09:52: White Blood Count 15.2H, Red Blood Count 2.63L, Hemoglobin 7.3L, Hematocrit 23.1L, Mean Corpuscular Volume 88, Mean Corpuscular Hemoglobin 27.7, Mean Corpuscular Hemoglobin Concent 31.6L, Red Cell Distribution Width 14.9H, Platelet Count 234, Mean Platelet Volume 10.5H, Neutrophils (%) (Auto) , Lymphocytes (%) (Auto) , Monocytes (%) (Auto) , Eosinophils (%) (Auto) , Basophils (%) (Auto) , Differential Total Cells Counted 100, Neutrophils % (Manual) 84H, Lymphocytes % (Manual) 12L, Monocytes % (Manual) 4, Eosinophils % (Manual) 0, Basophils % (Manual) 0, Band Neutrophils 0, Platelet Estimate Adequate, Platelet Morphology Normal, Hypochromasia 1+, Anisocytosis 1+ Height (Feet): 5 Height (Inches): 2.00 Weight (Pounds): 85 General Appearance: no apparent distress EENT: other - On Venturi mask Cardiovascular: tachycardia Respiratory/Chest: decreased breath sounds Abdomen: distended Gabriele Honeycutt MD Aug 07, 2020 13:26
--- NOTE | 2020-08-07 14:27 | Surgery Progress Note ---
Surgery Progress Note Subjective Additional Comments downgraded from ICU labs noted improving comfortable no n/ v Objective Last 24 Hour Vital Signs Date Time Temp Pulse Resp B/P (MAP) Pulse Ox O2 Delivery O2 Flow Rate FiO2 08/07/20 12:00 Venturi Mask 2.0 08/07/20 12:00 97.0 79 22 121/60 (80) 100 08/07/20 11:32 2.0 24 08/07/20 08:00 94 25 130/68 (88) 99 08/07/20 08:00 Venturi Mask 2.0 08/07/20 07:05 99 Venturi Mask 3.0 28 08/07/20 07:00 95 29 130/63 (85) 100 08/07/20 06:00 97 29 100 08/07/20 06:00 97 27 100 08/07/20 05:00 97 27 100 08/07/20 05:00 97 27 122/56 (78) 100 08/07/20 05:00 96 21 100 08/07/20 04:00 Venturi Mask 2.0 08/07/20 04:00 97 25 116/56 (76) 100 08/07/20 04:00 97 25 116/56 (76) 100 08/07/20 04:00 96 21 100 08/07/20 04:00 99 08/07/20 03:00 96 21 100 08/07/20 03:00 96 21 105/58 (74) 100 08/07/20 03:00 96 21 105/58 (74) 100 08/07/20 02:38 98 20 117/54 (75) 99 08/07/20 02:38 98 20 117/54 (75) 99 08/07/20 02:38 98 20 117/54 (75) 99 08/07/20 02:26 92 22 95/50 (65) 99 08/07/20 02:26 92 22 95/50 (65) 99 08/07/20 02:26 92 22 95/50 (65) 99 08/07/20 02:08 92 23 81/43 (56) 99 08/07/20 02:08 92 23 81/43 (56) 99 08/07/20 02:08 92 23 81/43 (56) 99 08/07/20 02:00 92 22 85/44 (58) 99 08/07/20 02:00 92 22 85/44 (58) 99 08/07/20 02:00 92 22 85/44 (58) 99 08/07/20 02:00 88 21 100 08/07/20 01:00 88 15 97 08/07/20 01:00 96 20 95/48 (64) 98 08/07/20 01:00 96 20 95/48 (64) 98 08/07/20 00:01 83 18 90/42 (58) 100 08/07/20 00:01 83 18 90/42 (58) 100 08/07/20 00:00 80 17 89/40 (56) 100 08/07/20 00:00 99 08/07/20 00:00 Venturi Mask 2.0 08/07/20 00:00 80 17 89/40 (56) 100 08/07/20 00:00 88 15 97 08/06/20 23:00 88 15 97 08/06/20 23:00 88 15 97 08/06/20 23:00 98.0 78 14 120/83 (95) 100 08/06/20 22:45 66 15 100 08/06/20 22:30 74 15 96 08/06/20 22:15 76 15 96 08/06/20 22:00 98.0 78 14 120/83 (95) 100 08/06/20 22:00 64 14 106/38 (60) 100 08/06/20 22:00 64 14 106/38 (60) 100 08/06/20 21:56 98.0 78 14 120/83 (95) 100 08/06/20 21:45 79 18 96 08/06/20 21:30 78 15 96 08/06/20 21:15 60 13 100 08/06/20 21:00 74 14 136/51 (79) 98 08/06/20 21:00 74 14 136/51 (79) 98 08/06/20 20:45 78 16 08/06/20 20:30 74 15 08/06/20 20:15 75 18 94 08/06/20 20:07 78 08/06/20 20:02 98.0 78 14 120/83 (95) 100 08/06/20 20:02 Venturi Mask 08/06/20 20:00 79 15 98/73 (81) 98 08/06/20 20:00 79 15 98/73 (81) 98 08/06/20 19:05 100 Venturi Mask 3.0 28 08/06/20 19:00 78 14 120/83 (95) 100 08/06/20 19:00 78 14 120/83 (95) 100 08/06/20 18:00 89 18 98/43 (61) 99 08/06/20 18:00 88 18 98/43 (61) 99 08/06/20 17:00 92 21 103/46 (65) 100 08/06/20 16:00 99 08/06/20 16:00 Venturi Mask 2.0 08/06/20 16:00 98.0 90 18 91/42 (58) 98 08/06/20 15:00 2.0 24 08/06/20 15:00 96 24 116/51 (72) 100 08/06/20 14:58 97 19 98 2.0 24 I&O Intake and Output 08/06/20 08/07/20 19:00 07:00 Intake Total 1832.49683 ml 820 ml Output Total 1140 ml 550 ml Balance 692.54388 ml 270 ml Intake Free Water 40 ml 220 ml IV Total 1392.11902 ml Tube Feeding 400 ml 600 ml Output Urine Total 1140 ml 550 ml # Bowel Movements 12 Dressing: saturated Cardiovascular: RSR Respiratory: decreased breath sounds Abdomen: soft, non-tender, present bowel sounds, other, non-distended Extremities: edema, no tenderness, no cyanosis Laboratory Tests Test 08/07/20 09:52 08/07/20 13:10 White Blood Count 15.2 K/UL (4.8-10.8) H Red Blood Count 2.63 M/UL (4.20-5.40) L Hemoglobin 7.3 G/DL (12.0-16.0) L Hematocrit 23.1 % (37.0-47.0) L Mean Corpuscular Volume 88 FL (80-99) Mean Corpuscular Hemoglobin 27.7 PG (27.0-31.0) Mean Corpuscular Hemoglobin Concent 31.6 G/DL (32.0-36.0) L Red Cell Distribution Width 14.9 % (11.6-14.8) H Platelet Count 234 K/UL (150-450) Mean Platelet Volume 10.5 FL (6.5-10.1) H Neutrophils (%) (Auto) % (45.0-75.0) Lymphocytes (%) (Auto) % (20.0-45.0) Monocytes (%) (Auto) % (1.0-10.0) Eosinophils (%) (Auto) % (0.0-3.0) Basophils (%) (Auto) % (0.0-2.0) Differential Total Cells Counted 100 Neutrophils % (Manual) 84 % (45-75) H Lymphocytes % (Manual) 12 % (20-45) L Monocytes % (Manual) 4 % (1-10) Eosinophils % (Manual) 0 % (0-3) Basophils % (Manual) 0 % (0-2) Band Neutrophils 0 % (0-8) Platelet Estimate Adequate Platelet Morphology Normal Hypochromasia 1+ Anisocytosis 1+ POC Whole Blood Glucose Pending Plan Problems: (1) Leukocytosis Assessment & Plan: (1) Fever (2) Leukocytosis Assessment & Plan: on abx id input appreciated wounds not infected nutrition (3) Tachycardia (4) Decubitus skin ulcer (5) Pyelonephritis (6) Malnutrition (7) Sepsis Assessment & Plan: ill appearing poor skin turgor leukocytosis anemia h/h low trending prbc prn Needs based on underweight, DM 35.5kg 30-40 kcals/kg 7735-6314 total kcals 1.25-2 g protein/kg 44-71 g total protein 25-35ml/kcal mL/kg 888-1243 total fluid mLs NUTRITION DIAGNOSIS: Swallowing difficulty R/T dysphagia as evidenced by pt is Gtube dependent. ENTERAL NUTRITION RECOMMENDATIONS: Glucerna 1.2 @50ml x24 hrs to provide 1200ml, 1440 kcal, 72g pro, 966ml free H2O - As able rec carb control formula for h/o DM. - Start @30ml/hr for 6 hrs, advance as tolerated 10ml/hr q4-6 hrs to goal. - Flush per MD/ HOB over 30 degrees ADDITIONAL RECOMMENDATIONS: - Per SNF: 5'3" and 78lbs/35.45kg. - Check lytes daily, replete as needed - A1c for eval of glycemic control - Wound care: advanced per RN, f/up with WC RN. Add LINA BID w/ GT, Vit C 250mg BID Assessment & Plan: leukocytosis lactic acidosis malnutrition underweight bmi 13 micro noted on abx as per ID cont abx wounds unlikely etiology will follow with local care and evaluation to ensure improving thank you There is a slight degree of image degradation due to motion artifact. The right upper lobe is largely clear following may be some interstitial septal thickening in the apex. The right middle lobe is clear. The right lower lobe demonstrates some atelectasis at the right lung base. There is also a focal 6 mm nodular opacity, image 50 series 5. There is a vague mosaic attenuation pattern. Left upper lobe demonstrates scattered areas of mosaic attenuation superiorly image 10 of series 5 demonstrates a 3 mm left upper lobe nodule.. Irregular consolidative opacities are seen in the inferior left upper lobe. More extensive consolidation in a patchy and irregular distribution are seen in the left lower lobe. There is a small left pleural effusion. The heart is upper limits of normal in size. The ascending thoracic aorta is mildly ectatic. No mediastinal or hilar mass or adenopathy. Unremarkable. No axillary or chest wall mass or adenopathy demonstrated. The bones are unremarkable except for minimal degenerative spondylosis changes and slight anterior bowing of the sternum. The included lung bases demonstrate a gastrostomy which appears well-positioned. There is trace ascites Impression: Opacities in the left lower lobe and also to a lesser extent in the left upper lobe and minimally in the right lower lobe. Appearance is consistent with consolidation rather than mass. Most likely represents pneumonia, appearance nonspecific as regards etiology. Patchy pulmonary edema also possible, among other possibilities Small left pleural effusion Bilateral small nodules, as described. No further follow-up necessary if there are no risk factors for lung carcinoma. There are significant risk factors, then short interval follow-up CT in 6-12 months is recommended Trace ascites (2) Fever (3) Decubitus skin ulcer Assessment & Plan: Emaciated pt whom [presented on admission with Contractures, GT and Multiple Pressure Injuries. DTPI Thoracic Spine(L)1.4cm x (W)0.9cm. Base of Pressure Injury is indurated, Pupuric with surrounding maroon borders. Full Thickness stage 4 Sacral Pressure Injury(L)4.5cm x (W)3.7cm x(D)2.5cm, Undermined Borders clockwise 12-6 by 3.1cm@12o'clock. Base of wound is arleen. Bone is palpable at base of wound. Scattered slough along loose edges. Small amt serous exudate noted. Wound is malodorous. Non- Blanching erythema without induration periwound. Full thickness stage 4 Pressure Injury L trochanter(L)6.5cm x (W)9cm x 1.4cm. Undermining clockwise 7-5 by 2.6cm @12o'clock. Base of wound 60% fibrinous slough, 40% moist and pink. Bone exposure at base of wound. Edges are detached with scattered slough along borders. Small amt seropurulent exudate noted. Wound is malodorous. Periwound is maroon and indurated. Unstageable Pressure Injury R heel (L)0.6cm x (W)0.6cm.Stable dry eschar with attached edges. Surrounding Heel is boggy with Non-Blanchable erythema. DTPI lateral R Malleolus (L)1.5cm x (W)2.2cm. Base of wound is maroon and fluctuant. No evidence of further skin breakdown periwound. Unstageable Pressure Injury Dorsal R 1st metatarsal(L)0.8cm x (W)1.2cm. Dry eschar with marginal erythema along adherent borders Periwound is erythematous without fluctuance or induration. Non-Blanchable erythema with fluctuance distal/lateral L foot (L)1cm x (W)1cm. Unstageable Pressure Injury L Hallux (L)2.2cm x (W)1.5cm. Dry eschar with howard rounding non-blanchable erythema.with fluctuance. Unstageable Pressure Injury Achilles L foot (L)1.5cm x (W)1.5 cm. Stable dry e schar with surrounding Non-blanchable erythema extending into plantar aspect of L heel. L heel is boggy.. Tx.Plan: Apply Cavilon Skin Barrier to Thoracic DTPI . Cover with Optifoam drsg. Change every 7 days and prn. Cleanse Sacral Wound with Dakin's 0.25% Nicki. Loosely pack wound with Dakin's moistened Kerlix. Apply Triad Paste periwound. Cover with Optifoam drsg Daily and prn. Cleanse L trochanteric Wound with Dakin's 0.25% nicki. Loosely pack with Dakin's moistened Kerlix. Apply Triad Paste Periwound. Cover with Optifoam drsg Daily and prn. Apply Betadine to Necrotic areas of L Foot . Cover each site with Optifoam drsg. Change every 3 days and prn. Apply Betadine to To Pressure Injuires R Foot. Cover each site with Optifoam drsgs. Change every 3 days and prn. Reposition at least every 2hours or as tolerated. Off-load heels with Pillow. APM/SOLOMON Mattress overlay. (4) Sepsis (5) Malnutrition Chao Ovalle Aug 07, 2020 14:27
[2020-08-07] MEDS ORDERED: Potassium Phosphate 20 MM in NS 275 ML IV ONE (15:00)
--- NOTE | 2020-08-07 18:38 | General Progress Note ---
Subjective Constitutional: Reports: no symptoms HEENT: Reports: no symptoms Cardiovascular: Reports: no symptoms Respiratory: Reports: no symptoms Gastrointestinal/Abdominal: Reports: no symptoms Genitourinary: Reports: no symptoms Neurologic/Psychiatric: Reports: no symptoms Endocrine: Reports: no symptoms Hematologic/Lymphatic: Reports: no symptoms Allergies: Coded Allergies: ERYTHROMYCIN BASE (Verified Allergy, Unknown, 11/12/16) Objective Last 24 Hour Vital Signs Date Time Temp Pulse Resp B/P (MAP) Pulse Ox O2 Delivery O2 Flow Rate FiO2 08/07/20 16:00 98.1 78 20 112/65 (81) 98 08/07/20 16:00 78 08/07/20 15:34 0.5 08/07/20 15:32 1.0 08/07/20 15:30 Room Air 08/07/20 12:00 Venturi Mask 2.0 08/07/20 12:00 80 08/07/20 12:00 97.0 79 22 121/60 (80) 100 08/07/20 11:32 2.0 24 08/07/20 08:00 94 25 130/68 (88) 99 08/07/20 08:00 Venturi Mask 2.0 08/07/20 07:05 99 Venturi Mask 3.0 28 08/07/20 07:00 95 29 130/63 (85) 100 08/07/20 06:00 97 29 100 08/07/20 06:00 97 27 100 08/07/20 05:00 97 27 100 08/07/20 05:00 97 27 122/56 (78) 100 08/07/20 05:00 96 21 100 08/07/20 04:00 Venturi Mask 2.0 08/07/20 04:00 97 25 116/56 (76) 100 08/07/20 04:00 97 25 116/56 (76) 100 08/07/20 04:00 96 21 100 08/07/20 04:00 99 08/07/20 03:00 96 21 100 08/07/20 03:00 96 21 105/58 (74) 100 08/07/20 03:00 96 21 105/58 (74) 100 08/07/20 02:38 98 20 117/54 (75) 99 08/07/20 02:38 98 20 117/54 (75) 99 08/07/20 02:38 98 20 117/54 (75) 99 08/07/20 02:26 92 22 95/50 (65) 99 08/07/20 02:26 92 22 95/50 (65) 99 08/07/20 02:26 92 22 95/50 (65) 99 08/07/20 02:08 92 23 81/43 (56) 99 08/07/20 02:08 92 23 81/43 (56) 99 08/07/20 02:08 92 23 81/43 (56) 99 08/07/20 02:00 92 22 85/44 (58) 99 08/07/20 02:00 92 22 85/44 (58) 99 08/07/20 02:00 92 22 85/44 (58) 99 08/07/20 02:00 88 21 100 08/07/20 01:00 88 15 97 08/07/20 01:00 96 20 95/48 (64) 98 08/07/20 01:00 96 20 95/48 (64) 98 08/07/20 00:01 83 18 90/42 (58) 100 08/07/20 00:01 83 18 90/42 (58) 100 08/07/20 00:00 80 17 89/40 (56) 100 08/07/20 00:00 99 08/07/20 00:00 Venturi Mask 2.0 08/07/20 00:00 80 17 89/40 (56) 100 08/07/20 00:00 88 15 97 08/06/20 23:00 88 15 97 08/06/20 23:00 88 15 97 08/06/20 23:00 98.0 78 14 120/83 (95) 100 08/06/20 22:45 66 15 100 08/06/20 22:30 74 15 96 08/06/20 22:15 76 15 96 08/06/20 22:00 98.0 78 14 120/83 (95) 100 08/06/20 22:00 64 14 106/38 (60) 100 08/06/20 22:00 64 14 106/38 (60) 100 08/06/20 21:56 98.0 78 14 120/83 (95) 100 08/06/20 21:45 79 18 96 08/06/20 21:30 78 15 96 08/06/20 21:15 60 13 100 1/28/21 21:00 74 14 136/51 (79) 98 08/06/20 21:00 74 14 136/51 (79) 98 08/06/20 20:45 78 16 08/06/20 20:30 74 15 08/06/20 20:15 75 18 94 08/06/20 20:07 78 08/06/20 20:02 98.0 78 14 120/83 (95) 100 08/06/20 20:02 Venturi Mask 08/06/20 20:00 79 15 98/73 (81) 98 08/06/20 20:00 79 15 98/73 (81) 98 08/06/20 19:05 100 Venturi Mask 3.0 28 08/06/20 19:00 78 14 120/83 (95) 100 08/06/20 19:00 78 14 120/83 (95) 100 Intake and Output 08/06/20 08/07/20 19:00 07:00 Intake Total 1832.12194 ml 820 ml Output Total 1140 ml 550 ml Balance 692.62616 ml 270 ml Intake Free Water 40 ml 220 ml IV Total 1392.78324 ml Tube Feeding 400 ml 600 ml Output Urine Total 1140 ml 550 ml # Bowel Movements 12 Laboratory Tests 08/07/20 09:52: White Blood Count 15.2H, Red Blood Count 2.63L, Hemoglobin 7.3L, Hematocrit 23.1L, Mean Corpuscular Volume 88, Mean Corpuscular Hemoglobin 27.7, Mean Corpuscular Hemoglobin Concent 31.6L, Red Cell Distribution Width 14.9H, Platelet Count 234, Mean Platelet Volume 10.5H, Neutrophils (%) (Auto) , Lymphocytes (%) (Auto) , Monocytes (%) (Auto) , Eosinophils (%) (Auto) , Basop hils (%) (Auto) , Differential Total Cells Counted 100, Neutrophils % (Manual) 84H, Lymphocytes % (Manual) 12L, Monocytes % (Manual) 4, Eosinophils % (Manual) 0, Basophils % (Manual) 0, Band Neutrophils 0, Platelet Estimate Adequate, Platelet Morphology Normal, Hypochromasia 1+, Anisocytosis 1+ 08/07/20 13:10: POC Whole Blood Glucose [Pending] 08/07/20 18:28: POC Whole Blood Glucose 101 Height (Feet): 5 Height (Inches): 2.00 Weight (Pounds): 85 General Appearance: no apparent distress, lethargic EENT: normal ENT inspection Neck: supple Cardiovascular: normal rate, regular rhythm, no gallop/murmur, no JVD Respiratory/Chest: no respiratory distress, no accessory muscle use, decreased breath sounds, rhonchi - left Abdomen: normal bowel sounds, non tender, soft, no organomegaly, no mass Extremities: non-tender Neurologic: alert, aphasia Skin: warm/dry Assessment/Plan Status Narrative Patient is awake with brief eye contact is very short attention span she has no fever and no tachycardia physical exam showed diffuse muscle wasting in both upper and lower extremities at left lower base WBC declined from 30-15 sputum culture grew Staph aureus and normal respiratory josé had only few WBCs and Covid test repeated COVID-19 test is negative piperacillin tazobactam was DC'd and was replaced with ceftriaxone 1 g IV piggyback every 24 hours together with [facility] laboratory tests and chest x-ray will be done in a.m. as a Gale Royal MD, MD Aug 07, 2020 18:38
--- NOTE | 2020-08-07 18:41 | NUR ---
NURSE NOTES: per Dr pat request, Gallardo was changed.
--- NOTE | 2020-08-07 19:40 | NUR ---
NURSE NOTES: Received report from DURAN Mckeon. Pt asleep in bed, afebrile, and no respiratory distress noted. On Room air saturating at 100%. On Glucerna 1.2 at 50 cc/hr via GT intact, infusing and no residual amount noted. With right EJ 18 g and left hand 22 g IV lines intact, patent and asymptomatic.With FC to urine bag drain light yellow urine. HOB elevated. Call light within reach. Bed rails are up and padded,wheels are locked. Call light within reach. Continue plan of care
[2020-08-08] VITALS: BP 133/64
[2020-08-08 04:00] VITALS: BP 119/61
[2020-08-08] MEDS: 1/2NS w/KCl 20mEq 1000ml 1,000 ML IV SCH ×2 (05:59→19:20)
[2020-08-08] MEDS: NovoLOG Insulin Flexpen SUBQ SCH ×5 (06:00→23:28)
[2020-08-08] MEDS: Midodrine 10mg tab ORAL SCH ×3 (06:01→21:33)
--- NOTE | 2020-08-08 07:15 | NUR ---
NURSE HAND-OFF REPORT: Important Events on Shift: stable Patient Status: stable Diet: glcuerna 1.2 Pending Orders: n Pending Results/Lab N Pending MD notification:n Latest Vital Signs: Temperature 98.1 , Pulse 95 , B/P 119 /61 , Respiratory Rate 20 , O2 SAT 100 , Bi-pap, O2 Flow Rate 3.0 . Vital Sign Comment: n EKG Rhythm: Sinus Rhythm Rhythm change?: N MD Notified?: Y -Dr Rima MENDEZ Response: No New Orders Received Latest Huggins Fall Score: 50 Fall Risk: High Risk Safety Measures: Call light Within Reach, Bed Alarm Zone 1, Side Rails Side Rails x3, Bed position Low and Locked. Fall Precautions: Yellow Socks Yellow Gown Door Sign Patient Fall Education Report given to Hue Venegas.
--- NOTE | 2020-08-08 07:25 | NUR ---
NURSE NOTES: Received report from DURAN PRITCHARD. Pt is lying in bed, asleep, not in acute distress, no facial grimacing noted. Tolerating room air. G-tube is intact and patent running Glucerna 1.2 @ 50cc/hr. Gallardo catheter is intact and patent draining yellow urine. IV in R EJ 18 G is intact and patent, running 0.45%NS with 20 mEq KCl @ 75cc/hr. Skin issues noted and dressing intact. Bed is locked and in lowest position, bed alarm on, call light is with the pt. Recent labs, medication and MD orders reviewed. Will continue to monitor pt. Will continue with the plan of care.
[2020-08-08 08:00] VITALS: BP 126/65
[2020-08-08 08:03] LABS: MEAN CORPUSCULAR VOLUME 87 FL (80-99); PLATELET COUNT 312 K/UL (150-450); RED BLOOD COUNT 3.23 M/UL (4.20-5.40); RED CELL DISTRIBUTION WIDTH 14.9 % (11.6-14.8); WHITE BLOOD COUNT 17.4 K/UL (4.8-10.8)
[2020-08-08] MEDS: Vancomycin 750 MG in NS 275 ML IVPB SCH ×2 (08:12→21:32)
[2020-08-08] MEDS: Dakin's 0.125% Soln (Quarter Strength) 16oz TOPIC SCH (08:23)
[2020-08-08] MEDS: Heparin 5000 units/ml inj SUBQ SCH ×2 (08:23→21:36)
[2020-08-08] MEDS: Pantoprazole Inj IVP SCH ×2 (08:24→21:33)
[2020-08-08] MEDS: levETIRAcetam 500mg/5ml Liquid GT SCH ×2 (08:24→21:31)
[2020-08-08 08:33] LABS: ALANINE AMINOTRANSFERASE 41 U/L (12-78); ALBUMIN 2.7 G/DL (3.4-5.0); ALBUMIN/GLOBULIN RATIO 0.6 (1.0-2.7); ALKALINE PHOSPHATASE 92 U/L (46-116); ANION GAP 7 mmol/L (5-15); ASPARTATE AMINO TRANSFERASE 18 U/L (15-37); BILIRUBIN,TOTAL 0.4 MG/DL (0.2-1.0); BLOOD UREA NITROGEN 8 mg/dL (7-18); CARBON DIOXIDE 29 MMOL/L (21-32); CHLORIDE 99 MMOL/L (98-107); CREATININE 0.4 MG/DL (0.55-1.30); PHOSPHORUS 2.9 MG/DL (2.5-4.9); POTASSIUM 3.5 MMOL/L (3.5-5.1); SODIUM 135 MMOL/L (136-145)
--- NOTE | 2020-08-08 09:13 | Diagnostic Imaging Report ---
EXAM: XR Chest, 2 Views CLINICAL HISTORY: F/U TECHNIQUE: Frontal and lateral views of the chest. COMPARISON: Chest x-rays dated 07/21/20 FINDINGS: Lungs: Interval mild improvement in the left infrahilar opacity. Persistent bilateral prominent interstitial markings. Nodular opacity in the left lower lung likely represents a nipple shadow. Pleural space: Unremarkable. The costophrenic angle are sharp. No visible pneumothorax. Heart: Unremarkable. No cardiomegaly. Mediastinum: Unremarkable. Bones/joints: Unremarkable. Tubes, lines and devices: Telemetry leads overlie the thorax. IMPRESSION: 1. Interval mild improvement in the left infrahilar opacity. This may represent atelectasis versus pneumonia. 2. Persistent bilateral prominent interstitial markings. This is nonspecific and may represent a mild bronchitis or pneumonitis.
--- NOTE | 2020-08-08 09:21 | Infectious Diseases Prog Note ---
Assessment/Plan 69yo F with: Acute hypoxic resp failure requiring BiPAP, improved Afebrile Leukocytosis to 30, improving Pneumonia UTI Recent COVID dx 07/20/2008/05 BCx NTD UA 30-40 WBC, UCx >100k E.coli and P.mirabilis (both terrazas-S) Resp cx +MRSA (S-bactrim, doxy) COVID neg CXR: Left infrahilar and basilar infiltrate, likely pneumonia. Questionable infiltrates on the right as well. MRSA nares positive on prior admission 08/08 CXR: 1. Interval mild improvement in the left infrahilar opacity. This may represent atelectasis versus pneumonia. 2. Persistent bilateral prominent interstitial markings. This is nonspecific and may represent a mild bronchitis or pneumonitis. Recent h/o COVID pneumonia 07/20/20 Stable resp status, on baseline 3L NC 07/08 COVID rapid and PCR neg 07/20 COVID PCR positive Sepsis Leukocytosis to 21 Afebrile but with fever at [facility] Lymphopenia Hypoxic w/ NC O2 requirement, r/o PNA 07/08 BCx NTD UA+, UCx <10k GNR COVID rapid test neg, PCR neg CXR: No acute process 07/14 UCx +yeast (colonizer) +RLE DVT on US 07/09 Elevated LFTs 67 / 120 Abd TTP 06/29 Abd US wnl Acute hep panel neg Cr 0.5 HIV screen neg PMH: DM CHF Dementia SNF resident Plan: Cont CTX 1g IV daily #2/5 (abx d #4/) to cover for UTI Cont vanco IV #4/ for MRSA pneumonia, on discharge can transition to oral linezolid 600mg PO BID to complete rest of course, end date 08/18 Trend WBC - improving slowly 08/07 SP Zosyn #2 07/17 SP Zosyn #7 07/10 SP CTX #2 Monitor CBC/CMP Monitor temp curve, hemodynamics Monitor resp status D/w RN Thank you for this consult. [facility] will continue to follow. Subjective Allergies: Coded Allergies: ERYTHROMYCIN BASE (Verified Allergy, Unknown, 11/12/16) AF Satting 100% on RA WBC 17, overall stable Resp cx +MRSA Objective Last 24 Hour Vital Signs Date Time Temp Pulse Resp B/P (MAP) Pulse Ox O2 Delivery O2 Flow Rate FiO2 08/08/20 08:00 85 08/08/20 04:00 Room Air 08/08/20 04:00 98.1 95 20 119/61 (80) 100 08/08/20 03:34 89 08/08/20 00:00 99.1 91 20 133/64 (87) 100 08/08/20 00:00 Room Air 08/07/20 23:34 90 08/07/20 20:00 Room Air 08/07/20 20:00 97.8 80 20 99/61 (74) 98 08/07/20 19:42 82 08/07/20 19:09 99 Venturi Mask 3.0 28 08/07/20 18:41 Room Air 08/07/20 16:00 98.1 78 20 112/65 (81) 98 08/07/20 16:00 78 08/07/20 15:34 0.5 08/07/20 15:32 1.0 08/07/20 15:30 Room Air 08/07/20 12:00 Venturi Mask 2.0 08/07/20 12:00 80 08/07/20 12:00 97.0 79 22 121/60 (80) 100 08/07/20 11:32 2.0 24 Height (Feet): 5 Height (Inches): 2.00 Weight (Pounds): 85 Gen: NAD in bed HEENT: NCAT CV: RRR Pulm: CTAB Abd: Soft, NTND Ext: No c/c/e Neuro: Awake but not interactive Microbiology Date/Time Source Procedure Growth Status 08/05/20 16:00 Sputum Gram Stain - Final Complete 08/05/20 16:00 Sputum Culture - Final Staphylococcus Aureus - Mrsa Usual Respiratory Savita Complete 08/05/20 14:40 Blood Blood Culture - Preliminary NO GROWTH AFTER 48 HOURS Resulted 08/05/20 09:50 Rectum VRE Culture - Final NO VANCOMYCIN RESISTANT ENTEROCOCCUS ... Complete 08/05/20 09:50 Rectum - Final NO CARBAPENEM-RESISTANT ENTEROBACTERI... Complete 08/05/20 09:50 Nasopharynx Coronavirus COVID-19 PCR (DAIN) - Final Complete Laboratory Tests Test 08/07/20 09:52 08/07/20 13:10 08/07/20 18:28 08/07/20 23:55 White Blood Count 15.2 K/UL (4.8-10.8) H Red Blood Count 2.63 M/UL (4.20-5.40) L Hemoglobin 7.3 G/DL (12.0-16.0) L Hematocrit 23.1 % (37.0-47.0) L Mean Corpuscular Volume 88 FL (80-99) Mean Corpuscular Hemoglobin 27.7 PG (27.0-31.0) Mean Corpuscular Hemoglobin Concent 31.6 G/DL (32.0-36.0) L Red Cell Distribution Width 14.9 % (11.6-14.8) H Platelet Count 234 K/UL (150-450) Mean Platelet Volume 10.5 FL (6.5-10.1) H Neutrophils (%) (Auto) % (45.0-75.0) Lymphocytes (%) (Auto) % (20.0-45.0) Monocytes (%) (Auto) % (1.0-10.0) Eosinophils (%) (Auto) % (0.0-3.0) Basophils (%) (Auto) % (0.0-2.0) Differential Total Cells Counted 100 Neutrophils % (Manual) 84 % (45-75) H Lymphocytes % (Manual) 12 % (20-45) L Monocytes % (Manual) 4 % (1-10) Eosinophils % (Manual) 0 % (0-3) Basophils % (Manual) 0 % (0-2) Band Neutrophils 0 % (0-8) Platelet Estimate Adequate Platelet Morphology Normal Hypochromasia 1+ Anisocytosis 1+ POC Whole Blood Glucose Pending 101 MG/DL (74-106) 105 MG/DL (74-106) Test 08/08/20 05:44 08/08/20 07:00 POC Whole Blood Glucose 122 MG/DL (74-106) H White Blood Count 17.4 K/UL (4.8-10.8) H Red Blood Count 3.23 M/UL (4.20-5.40) L Hemoglobin 9.0 G/DL (12.0-16.0) L Hematocrit 28.0 % (37.0-47.0) L Mean Corpuscular Volume 87 FL (80-99) Mean Corpuscular Hemoglobin 27.7 PG (27.0-31.0) Mean Corpuscular Hemoglobin Concent 32.0 G/DL (32.0-36.0) Red Cell Distribution Width 14.9 % (11.6-14.8) H Platelet Count 312 K/UL (150-450) Mean Platelet Volume 9.4 FL (6.5-10.1) Neutrophils (%) (Auto) % (45.0-75.0) Lymphocytes (%) (Auto) % (20.0-45.0) Monocytes (%) (Auto) % (1.0-10.0) Eosinophils (%) (Auto) % (0.0-3.0) Basophils (%) (Auto) % (0.0-2.0) Neutrophils % (Manual) Pending Lymphocytes % (Manual) Pending Platelet Estimate Pending Platelet Morphology Pending Sodium Level 135 MMOL/L (136-145) L Potassium Level 3.5 MMOL/L (3.5-5.1) Chloride Level 99 MMOL/L (98-107) Carbon Dioxide Level 29 MMOL/L (21-32) Anion Gap 7 mmol/L (5-15) Blood Urea Nitrogen 8 mg/dL (7-18) Creatinine 0.4 MG/DL (0.55-1.30) L Estimat Glomerular Filtration Rate > 60 mL/min (>60) Glucose Level 123 MG/DL (74-106) H Calcium Level 9.0 MG/DL (8.5-10.1) Phosphorus Level 2.9 MG/DL (2.5-4.9) Magnesium Level 2.1 MG/DL (1.8-2.4) Total Bilirubin 0.4 MG/DL (0.2-1.0) Aspartate Amino Transf (AST/SGOT) 18 U/L (15-37) Alanine Aminotransferase (ALT/SGPT) 41 U/L (12-78) Alkaline Phosphatase 92 U/L (46-116) C-Reactive Protein, Quantitative 5.5 mg/dL (0.00-0.90) H Pro-B-Type Natriuretic Peptide 1457 pg/mL (0-125) H Total Protein 7.6 G/DL (6.4-8.2) Albumin 2.7 G/DL (3.4-5.0) L Globulin 4.9 g/dL Albumin/Globulin Ratio 0.6 (1.0-2.7) L Vancomycin Level Trough 2.9 ug/mL (5.0-12.0) L Current Medications Medications (Trade) Dose Ordered Sig/Alvarado Route PRN Reason Start Time Stop Time Status Last Admin Dose Admin Acetaminophen (Tylenol) 650 mg Q4H PRN GT Mild Pain (Pain Scale 1-3) 08/05/20 11:30 09/04/20 11:29 Acetaminophen (Tylenol) 650 mg Q4H PRN GT TEMP > 100.5 08/05/20 11:45 09/04/20 11:44 Ceftriaxone Sodium 1 gm/ Dextrose 55 ml @ 110 mls/hr Q24H IVPB 08/07/20 13:00 08/14/20 12:59 08/07/20 13:16 Dextrose (Dextrose 50%) 25 ml Q30M PRN IV Hypoglycemia 08/06/20 12:00 11/04/20 11:59 Dextrose (Dextrose 50%) 50 ml Q30M PRN IV Hypoglycemia 08/06/20 12:00 11/04/20 11:59 Heparin Sodium (Porcine) (Heparin 5000 units/ml) 5,000 units EVERY 12 HOURS SUBQ 08/05/20 21:00 09/19/20 20:59 08/08/20 08:23 Insulin Aspart (NovoLOG) Q6HR SUBQ 08/06/20 18:00 11/04/20 17:59 Levetiracetam (Keppra) 500 mg Q12HR GT 08/05/20 21:00 09/04/20 20:59 08/08/20 08:24 Midodrine (Pro-Amatine) 10 mg Q8HR ORAL 08/06/20 14:00 11/04/20 13:59 08/08/20 06:01 Pantoprazole (Protonix) 40 mg Q12HR IVP 08/06/20 21:00 09/05/20 08:59 08/08/20 08:24 Sodium 1,000 ml @ 75 mls/hr [id number] IV 08/06/20 14:00 09/05/20 13:59 08/08/20 05:59 Sodium Hypochlorite (Dakin's Quarter Strength) 1 applic DAILY TOPIC 08/06/20 09:00 09/05/20 08:59 08/08/20 08:23 Vancomycin HCl ([facility] pharmacy to dose) 1 ea DAILY PRN MISC . 08/05/20 14:00 09/04/20 13:59 Vancomycin HCl 750 mg/Sodium Chloride 275 ml @ 183.333 mls/hr Q12H IVPB 08/08/20 20:00 08/13/20 19:59 Beth Marsh M.D. Aug 08, 2020 09:21
--- NOTE | 2020-08-08 10:30 | NUR ---
NURSE NOTES: Initial assessment done. Morning medications administered per order. Pt tolerating room air with no sign of distress. VSS. Pt has productive cough. Oral suction done. Will continue to monitor pt.
--- NOTE | 2020-08-08 11:22 | Hematology/Onc Progress Note ---
Assessment/Plan Assessment/Plan Assessment/Plan Assessment and Recs # Leukocytosis with likely sepsis due to pna --> ON ABX vanc/zosyn --> is on ivfs --> abx as per ID --> imaging noted --> wbc 28 # Right lower extremity dvt --> h/h to low for anticoag --> consider repeat lower duplex at this time --> consider ivcf # Anemia due to chronic disease --> hgb 10-->8.2 # Respiratory distress --> r/o covid --> per pulm # Dysphagia s/p peg # CVA hx # HL --> lipitor and asa # Tachycardia --> ivfs should improve # Dvt ppx heparin sq Subjective Allergies: Coded Allergies: ERYTHROMYCIN BASE (Verified Allergy, Unknown, 11/12/16) Subjective Subjective: 08/08: tolerating g t ube feeds, no bleeding reported. Objective Objective Current Medications Medications (Trade) Dose Ordered Sig/Alvarado Route PRN Reason Start Time Stop Time Status Last Admin Dose Admin Acetaminophen (Tylenol) 650 mg Q4H PRN GT Mild Pain (Pain Scale 1-3) 08/05/20 11:30 09/04/20 11:29 Acetaminophen (Tylenol) 650 mg Q4H PRN GT TEMP > 100.5 08/05/20 11:45 09/04/20 11:44 Ceftriaxone Sodium 1 gm/ Dextrose 55 ml @ 110 mls/hr Q24H IVPB 08/07/20 13:00 08/14/20 12:59 08/07/20 13:16 Dextrose (Dextrose 50%) 25 ml Q30M PRN IV Hypoglycemia 08/06/20 12:00 11/04/20 11:59 Dextrose (Dextrose 50%) 50 ml Q30M PRN IV Hypoglycemia 08/06/20 12:00 11/04/20 11:59 Heparin Sodium (Porcine) (Heparin 5000 units/ml) 5,000 units EVERY 12 HOURS SUBQ 08/05/20 21:00 09/19/20 20:59 08/08/20 08:23 Insulin Aspart (NovoLOG) Q6HR SUBQ 08/06/20 18:00 11/04/20 17:59 Levetiracetam (Keppra) 500 mg Q12HR GT 08/05/20 21:00 09/04/20 20:59 08/08/20 08:24 Midodrine (Pro-Amatine) 10 mg Q8HR ORAL 08/06/20 14:00 11/04/20 13:59 08/08/20 06:01 Pantoprazole (Protonix) 40 mg Q12HR IVP 08/06/20 21:00 09/05/20 08:59 08/08/20 08:24 Sodium 1,000 ml @ 75 mls/hr [id number] IV 08/06/20 14:00 09/05/20 13:59 08/08/20 05:59 Sodium Hypochlorite (Dakin's Quarter Strength) 1 applic DAILY TOPIC 08/06/20 09:00 09/05/20 08:59 08/08/20 08:23 Vancomycin HCl ([facility] pharmacy to dose) 1 ea DAILY PRN MISC . 08/05/20 14:00 09/04/20 13:59 Vancomycin HCl 750 mg/Sodium Chloride 275 ml @ 183.333 mls/hr Q12H IVPB 08/08/20 20:00 08/13/20 19:59 Last 24 Hour Vital Signs Date Time Temp Pulse Resp B/P (MAP) Pulse Ox O2 Delivery O2 Flow Rate FiO2 08/08/20 08:00 97.5 84 20 126/65 (85) 99 08/08/20 08:00 85 08/08/20 08:00 Room Air 08/08/20 04:00 Room Air 08/08/20 04:00 98.1 95 20 119/61 (80) 100 08/08/20 03:34 89 08/08/20 00:00 99.1 91 20 133/64 (87) 100 08/08/20 00:00 Room Air 08/07/20 23:34 90 08/07/20 20:00 Room Air 08/07/20 20:00 97.8 80 20 99/61 (74) 98 08/07/20 19:42 82 08/07/20 19:09 99 Venturi Mask 3.0 28 08/07/20 18:41 Room Air 08/07/20 16:00 98.1 78 20 112/65 (81) 98 08/07/20 16:00 78 08/07/20 15:34 0.5 08/07/20 15:32 1.0 08/07/20 15:30 Room Air 08/07/20 12:00 Venturi Mask 2.0 08/07/20 12:00 80 08/07/20 12:00 97.0 79 22 121/60 (80) 100 08/07/20 11:32 2.0 24 08/07/20 08:00 94 25 130/68 (88) 99 08/07/20 08:00 Venturi Mask 2.0 08/07/20 07:05 99 Venturi Mask 3.0 28 08/07/20 07:00 95 29 130/63 (85) 100 08/07/20 06:00 97 29 100 08/07/20 06:00 97 27 100 08/07/20 05:00 97 27 100 08/07/20 05:00 97 27 122/56 (78) 100 08/07/20 05:00 96 21 100 08/07/20 04:00 Venturi Mask 2.0 08/07/20 04:00 97 25 116/56 (76) 100 08/07/20 04:00 97 25 116/56 (76) 100 08/07/20 04:00 96 21 100 08/07/20 04:00 99 08/07/20 03:00 96 21 100 08/07/20 03:00 96 21 105/58 (74) 100 08/07/20 03:00 96 21 105/58 (74) 100 08/07/20 02:38 98 20 117/54 (75) 99 08/07/20 02:38 98 20 117/54 (75) 99 08/07/20 02:38 98 20 117/54 (75) 99 08/07/20 02:26 92 22 95/50 (65) 99 08/07/20 02:26 92 22 95/50 (65) 99 08/07/20 02:26 92 22 95/50 (65) 99 08/07/20 02:08 92 23 81/43 (56) 99 08/07/20 02:08 92 23 81/43 (56) 99 08/07/20 02:08 92 23 81/43 (56) 99 08/07/20 02:00 92 22 85/44 (58) 99 08/07/20 02:00 92 22 85/44 (58) 99 08/07/20 02:00 92 22 85/44 (58) 99 08/07/20 02:00 88 21 100 08/07/20 01:00 88 15 97 08/07/20 01:00 96 20 95/48 (64) 98 08/07/20 01:00 96 20 95/48 (64) 98 08/07/20 00:01 83 18 90/42 (58) 100 08/07/20 00:01 83 18 90/42 (58) 100 08/07/20 00:00 80 17 89/40 (56) 100 08/07/20 00:00 99 08/07/20 00:00 Venturi Mask 2.0 08/07/20 00:00 80 17 89/40 (56) 100 08/07/20 00:00 88 15 97 08/06/20 23:00 88 15 97 08/06/20 23:00 88 15 97 08/06/20 23:00 98.0 78 14 120/83 (95) 100 08/06/20 22:45 66 15 100 08/06/20 22:30 74 15 96 08/06/20 22:15 76 15 96 08/06/20 22:00 98.0 78 14 120/83 (95) 100 08/06/20 22:00 64 14 106/38 (60) 100 08/06/20 22:00 64 14 106/38 (60) 100 08/06/20 21:56 98.0 78 14 120/83 (95) 100 08/06/20 21:45 79 18 96 08/06/20 21:30 78 15 96 08/06/20 21:15 60 13 100 08/06/20 21:00 74 14 136/51 (79) 98 08/06/20 21:00 74 14 136/51 (79) 98 08/06/20 20:45 78 16 08/06/20 20:30 74 15 08/06/20 20:15 75 18 94 08/06/20 20:07 78 08/06/20 20:02 98.0 78 14 120/83 (95) 100 08/06/20 20:02 Venturi Mask 08/06/20 20:00 79 15 98/73 (81) 98 08/06/20 20:00 79 15 98/73 (81) 98 08/06/20 19:05 100 Venturi Mask 3.0 28 08/06/20 19:00 78 14 120/83 (95) 100 08/06/20 19:00 78 14 120/83 (95) 100 08/06/20 18:00 89 18 98/43 (61) 99 08/06/20 18:00 88 18 98/43 (61) 99 08/06/20 17:00 92 21 103/46 (65) 100 08/06/20 16:00 99 08/06/20 16:00 Venturi Mask 2.0 08/06/20 16:00 98.0 90 18 91/42 (58) 98 08/06/20 15:00 2.0 24 08/06/20 15:00 96 24 116/51 (72) 100 08/06/20 14:58 97 19 98 2.0 24 08/06/20 14:00 90 19 112/49 (70) 100 08/06/20 13:40 4.0 30 08/06/20 13:39 100 Venturi Mask 4.0 30 08/06/20 13:39 91 18 100 4.0 30 08/06/20 13:00 88 18 134/112 (119) 98 08/06/20 12:00 97.8 81 16 116/69 (85) 99 08/06/20 12:00 88 08/06/20 12:00 Bi-pap Intake and Output 08/07/20 08/08/20 19:00 07:00 Intake Total 600 ml 1424 ml Output Total 950 ml 500 ml Balance -350 ml 924 ml IV Total 824 ml Tube Feeding 600 ml 600 ml Output Urine Total 950 ml 500 ml Labs Test 08/05/20 14:40 08/06/20 04:10 08/06/20 08:08 08/06/20 12:40 Sodium Level 145 MMOL/L (136-145) 145 MMOL/L (136-145) Potassium Level 3.9 MMOL/L (3.5-5.1) 3.2 MMOL/L (3.5-5.1) Chloride Level 110 MMOL/L (98-107) 110 MMOL/L (98-107) Carbon Dioxide Level 28 MMOL/L (21-32) 29 MMOL/L (21-32) Anion Gap 8 mmol/L (5-15) 6 mmol/L (5-15) Blood Urea Nitrogen 26 mg/dL (7-18) 20 mg/dL (7-18) Creatinine 0.5 MG/DL (0.55-1.30) 0.5 MG/DL (0.55-1.30) Estimat Glomerular Filtration Rate > 60 mL/min (>60) > 60 mL/min (>60) Glucose Level 190 MG/DL (74-106) 153 MG/DL (74-106) Calcium Level 9.4 MG/DL (8.5-10.1) 9.1 MG/DL (8.5-10.1) Total Bilirubin 0.3 MG/DL (0.2-1.0) 0.3 MG/DL (0.2-1.0) Aspartate Amino Transf (AST/SGOT) 19 U/L (15-37) 13 U/L (15-37) Alanine Aminotransferase (ALT/SGPT) 37 U/L (12-78) 27 U/L (12-78) Alkaline Phosphatase 99 U/L (46-116) 102 U/L (46-116) Total Protein 7.2 G/DL (6.4-8.2) 6.7 G/DL (6.4-8.2) Albumin 1.9 G/DL (3.4-5.0) 1.7 G/DL (3.4-5.0) Globulin 5.3 g/dL 5.0 g/dL Albumin/Globulin Ratio 0.4 (1.0-2.7) 0.3 (1.0-2.7) White Blood Count 27.7 K/UL (4.8-10.8) Red Blood Count 2.92 M/UL (4.20-5.40) Hemoglobin 8.2 G/DL (12.0-16.0) Hematocrit 25.6 % (37.0-47.0) Mean Corpuscular Volume 88 FL (80-99) Mean Corpuscular Hemoglobin 28.0 PG (27.0-31.0) Mean Corpuscular Hemoglobin Concent 31.9 G/DL (32.0-36.0) Red Cell Distribution Width 15.5 % (11.6-14.8) Platelet Count 251 K/UL (150-450) Mean Platelet Volume 10.2 FL (6.5-10.1) Neutrophils (%) (Auto) % (45.0-75.0) Lymphocytes (%) (Auto) % (20.0-45.0) Monocytes (%) (Auto) % (1.0-10.0) Eosinophils (%) (Auto) % (0.0-3.0) Basophils (%) (Auto) % (0.0-2.0) Differential Total Cells Counted 100 Neutrophils % (Manual) 90 % (45-75) Lymphocytes % (Manual) 9 % (20-45) Monocytes % (Manual) 1 % (1-10) Eosinophils % (Manual) 0 % (0-3) Basophils % (Manual) 0 % (0-2) Band Neutrophils 0 % (0-8) Platelet Estimate Adequate Platelet Morphology Normal Hypochromasia 2+ Anisocytosis 2+ Erythrocyte Sedimentation Rate 131 MM/HR (0-30) Prothrombin Time 13.0 SEC (9.30-11.50) Prothromb Time International Ratio 1.2 (0.9-1.1) Activated Partial Thromboplast Time 28 SEC (23-33) Hemoglobin A1c 6.1 % (4.3-6.0) Lactic Acid Level 1.00 mmol/L (0.4-2.0) Prealbumin 9 mg/dL (10-36) Amylase Level 132 U/L (25-115) Lipase 101 U/L (73-393) Arterial Blood pH 7.494 (7.350-7.450) Arterial Blood Partial Pressure CO2 37.2 mmHg (35.0-45.0) Arterial Blood Partial Pressure O2 117.4 mmHg (75.0-100.0) Arterial Blood HCO3 28.0 mmol/L (22.0-26.0) Arterial Blood Oxygen Saturation 98.4 % (95-100) Arterial Blood Base Excess 4.5 (-2-2) Eduardo Test Positive Uric Acid 1.7 MG/DL (2.6-7.2) Phosphorus Level 2.4 MG/DL (2.5-4.9) Magnesium Level 2.2 MG/DL (1.8-2.4) Iron Level 24 ug/dL (50-175) Total Iron Binding Capacity 139 ug/dL (250-450) Percent Iron Saturation 17 % (15-50) Unsaturated Iron Binding 115 ug/dL (112-346) Vitamin B12 Level 1641 PG/ML (193-986) Folate 15.9 NG/ML (8.6-58.9) Test 08/07/20 09:52 08/07/20 13:10 08/07/20 18:28 08/07/20 23:55 White Blood Count 15.2 K/UL (4.8-10.8) Red Blood Count 2.63 M/UL (4.20-5.40) Hemoglobin 7.3 G/DL (12.0-16.0) Hematocrit 23.1 % (37.0-47.0) Mean Corpuscular Volume 88 FL (80-99) Mean Corpuscular Hemoglobin 27.7 PG (27.0-31.0) Mean Corpuscular Hemoglobin Concent 31.6 G/DL (32.0-36.0) Red Cell Distribution Width 14.9 % (11.6-14.8) Platelet Count 234 K/UL (150-450) Mean Platelet Volume 10.5 FL (6.5-10.1) Neutrophils (%) (Auto) % (45.0-75.0) Lymphocytes (%) (Auto) % (20.0-45.0) Monocytes (%) (Auto) % (1.0-10.0) Eosinophils (%) (Auto) % (0.0-3.0) Basophils (%) (Auto) % (0.0-2.0) Differential Total Cells Counted 100 Neutrophils % (Manual) 84 % (45-75) Lymphocytes % (Manual) 12 % (20-45) Monocytes % (Manual) 4 % (1-10) Eosinophils % (Manual) 0 % (0-3) Basophils % (Manual) 0 % (0-2) Band Neutrophils 0 % (0-8) Platelet Estimate Adequate Platelet Morphology Normal Hypochromasia 1+ Anisocytosis 1+ POC Whole Blood Glucose 101 MG/DL (74-106) 105 MG/DL (74-106) Test 08/08/20 05:44 08/08/20 07:00 POC Whole Blood Glucose 122 MG/DL (74-106) White Blood Count 17.4 K/UL (4.8-10.8) Red Blood Count 3.23 M/UL (4.20-5.40) Hemoglobin 9.0 G/DL (12.0-16.0) Hematocrit 28.0 % (37.0-47.0) Mean Corpuscular Volume 87 FL (80-99) Mean Corpuscular Hemoglobin 27.7 PG (27.0-31.0) Mean Corpuscular Hemoglobin Concent 32.0 G/DL (32.0-36.0) Red Cell Distribution Width 14.9 % (11.6-14.8) Platelet Count 312 K/UL (150-450) Mean Platelet Volume 9.4 FL (6.5-10.1) Neutrophils (%) (Auto) % (45.0-75.0) Lymphocytes (%) (Auto) % (20.0-45.0) Monocytes (%) (Auto) % (1.0-10.0) Eosinophils (%) (Auto) % (0.0-3.0) Basophils (%) (Auto) % (0.0-2.0) Differential Total Cells Counted 100 Neutrophils % (Manual) 90 % (45-75) Lymphocytes % (Manual) 7 % (20-45) Monocytes % (Manual) 3 % (1-10) Eosinophils % (Manual) 0 % (0-3) Basophils % (Manual) 0 % (0-2) Band Neutrophils 0 % (0-8) Platelet Estimate Adequate Platelet Morphology Normal Hypochromasia 1+ Anisocytosis 1+ Sodium Level 135 MMOL/L (136-145) Potassium Level 3.5 MMOL/L (3.5-5.1) Chloride Level 99 MMOL/L (98-107) Carbon Dioxide Level 29 MMOL/L (21-32) Anion Gap 7 mmol/L (5-15) Blood Urea Nitrogen 8 mg/dL (7-18) Creatinine 0.4 MG/DL (0.55-1.30) Estimat Glomerular Filtration Rate > 60 mL/min (>60) Glucose Level 123 MG/DL (74-106) Calcium Level 9.0 MG/DL (8.5-10.1) Phosphorus Level 2.9 MG/DL (2.5-4.9) Magnesium Level 2.1 MG/DL (1.8-2.4) Total Bilirubin 0.4 MG/DL (0.2-1.0) Aspartate Amino Transf (AST/SGOT) 18 U/L (15-37) Alanine Aminotransferase (ALT/SGPT) 41 U/L (12-78) Alkaline Phosphatase 92 U/L (46-116) C-Reactive Protein, Quantitative 5.5 mg/dL (0.00-0.90) Pro-B-Type Natriuretic Peptide 1457 pg/mL (0-125) Total Protein 7.6 G/DL (6.4-8.2) Albumin 2.7 G/DL (3.4-5.0) Globulin 4.9 g/dL Albumin/Globulin Ratio 0.6 (1.0-2.7) Vancomycin Level Trough 2.9 ug/mL (5.0-12.0) Height (Feet): 5 Height (Inches): 2.00 Weight (Pounds): 85 Objective Physical Exam [id number] EP Interpretation: reviewed, normal General Appearance: no apparent distress, non-verbal Head: normocephalic, atraumatic ENT: hearing grossly normal, no angioedema Respiratory: chest non-tender, lungs clear, normal breath sounds,++bipap Cardiovascular: no edema, tachycardia Gastrointestinal: normal bowel sounds, non tender, soft, ++gt Rectal: deferred Musculoskeletal: normal inspection Neurologic: alert, motor strength/tone normal, no focal defects Psychiatric: mood/affect normal Skin: other - See RN skin exam. Lymphatic: no adenopathy Gu: valderrama+++ Gisela Lindquist NP Aug 08, 2020 11:22
[2020-08-08 12:00] VITALS: BP 133/76
--- NOTE | 2020-08-08 12:00 | NUR ---
NURSE NOTES: Pt is given sponge bath, wounds cleaned and dressing changed, and pictures taken. Pt tolerated. VSS. Will continue to closely monitor pt.
[2020-08-08] MEDS: cefTRIAXone 1 GM in D5W 55 ML IVPB SCH (12:10)
--- NOTE | 2020-08-08 12:15 | Surgery Progress Note ---
Surgery Progress Note Subjective Additional Comments ill appearing no n/v out of icu on support Objective Last 24 Hour Vital Signs Date Time Temp Pulse Resp B/P (MAP) Pulse Ox O2 Delivery O2 Flow Rate FiO2 08/08/20 08:00 97.5 84 20 126/65 (85) 99 08/08/20 08:00 85 08/08/20 08:00 Room Air 08/08/20 04:00 Room Air 08/08/20 04:00 98.1 95 20 119/61 (80) 100 08/08/20 03:34 89 08/08/20 00:00 99.1 91 20 133/64 (87) 100 08/08/20 00:00 Room Air 08/07/20 23:34 90 08/07/20 20:00 Room Air 08/07/20 20:00 97.8 80 20 99/61 (74) 98 08/07/20 19:42 82 08/07/20 19:09 99 Venturi Mask 3.0 28 08/07/20 18:41 Room Air 08/07/20 16:00 98.1 78 20 112/65 (81) 98 08/07/20 16:00 78 08/07/20 15:34 0.5 08/07/20 15:32 1.0 08/07/20 15:30 Room Air I&O Intake and Output 08/07/20 08/08/20 19:00 07:00 Intake Total 600 ml 1424 ml Output Total 950 ml 500 ml Balance -350 ml 924 ml IV Total 824 ml Tube Feeding 600 ml 600 ml Output Urine Total 950 ml 500 ml Dressing: saturated Cardiovascular: RSR Respiratory: decreased breath sounds Abdomen: non-tender, present bowel sounds Extremities: no edema, no tenderness, no cyanosis Laboratory Tests Test 08/07/20 13:10 08/07/20 18:28 08/07/20 23:55 08/08/20 05:44 POC Whole Blood Glucose Pending 101 MG/DL (74-106) 105 MG/DL (74-106) 122 MG/DL (74-106) H Test 08/08/20 07:00 08/08/20 12:09 White Blood Count 17.4 K/UL (4.8-10.8) H Red Blood Count 3.23 M/UL (4.20-5.40) L Hemoglobin 9.0 G/DL (12.0-16.0) L Hematocrit 28.0 % (37.0-47.0) L Mean Corpuscular Volume 87 FL (80-99) Mean Corpuscular Hemoglobin 27.7 PG (27.0-31.0) Mean Corpuscular Hemoglobin Concent 32.0 G/DL (32.0-36.0) Red Cell Distribution Width 14.9 % (11.6-14.8) H Platelet Count 312 K/UL (150-450) Mean Platelet Volume 9.4 FL (6.5-10.1) Neutrophils (%) (Auto) % (45.0-75.0) Lymphocytes (%) (Auto) % (20.0-45.0) Monocytes (%) (Auto) % (1.0-10.0) Eosinophils (%) (Auto) % (0.0-3.0) Basophils (%) (Auto) % (0.0-2.0) Differential Total Cells Counted 100 Neutrophils % (Manual) 90 % (45-75) H Lymphocytes % (Manual) 7 % (20-45) L Monocytes % (Manual) 3 % (1-10) Eosinophils % (Manual) 0 % (0-3) Basophils % (Manual) 0 % (0-2) Band Neutrophils 0 % (0-8) Platelet Estimate Adequate Platelet Morphology Normal Hypochromasia 1+ Anisocytosis 1+ Sodium Level 135 MMOL/L (136-145) L Potassium Level 3.5 MMOL/L (3.5-5.1) Chloride Level 99 MMOL/L (98-107) Carbon Dioxide Level 29 MMOL/L (21-32) Anion Gap 7 mmol/L (5-15) Blood Urea Nitrogen 8 mg/dL (7-18) Creatinine 0.4 MG/DL (0.55-1.30) L Estimat Glomerular Filtration Rate > 60 mL/min (>60) Glucose Level 123 MG/DL (74-106) H Calcium Level 9.0 MG/DL (8.5-10.1) Phosphorus Level 2.9 MG/DL (2.5-4.9) Magnesium Level 2.1 MG/DL (1.8-2.4) Total Bilirubin 0.4 MG/DL (0.2-1.0) Aspartate Amino Transf (AST/SGOT) 18 U/L (15-37) Alanine Aminotransferase (ALT/SGPT) 41 U/L (12-78) Alkaline Phosphatase 92 U/L (46-116) C-Reactive Protein, Quantitative 5.5 mg/dL (0.00-0.90) H Pro-B-Type Natriuretic Peptide 1457 pg/mL (0-125) H Total Protein 7.6 G/DL (6.4-8.2) Albumin 2.7 G/DL (3.4-5.0) L Globulin 4.9 g/dL Albumin/Globulin Ratio 0.6 (1.0-2.7) L Vancomycin Level Trough 2.9 ug/mL (5.0-12.0) L POC Whole Blood Glucose 110 MG/DL (74-106) H Plan Problems: (1) Leukocytosis Assessment & Plan: (1) Fever (2) Leukocytosis Assessment & Plan: on abx id input appreciated wounds not infected nutrition (3) Tachycardia (4) Decubitus skin ulcer (5) Pyelonephritis (6) Malnutrition (7) Sepsis Assessment & Plan: ill appearing poor skin turgor leukocytosis anemia h/h low trending prbc prn Needs based on underweight, DM 35.5kg 30-40 kcals/kg 9775-3989 total kcals 1.25-2 g protein/kg 44-71 g total protein 25-35ml/kcal mL/kg [id number] total fluid mLs NUTRITION DIAGNOSIS: Swallowing difficulty R/T dysphagia as evidenced by pt is Gtube dependent. ENTERAL NUTRITION RECOMMENDATIONS: Glucerna 1.2 @50ml x24 hrs to provide 1200ml, 1440 kcal, 72g pro, 966ml free H2O - As able rec carb control formula for h/o DM. - Start @30ml/hr for 6 hrs, advance as tolerated 10ml/hr q4-6 hrs to goal. - Flush per MD/ HOB over 30 degrees ADDITIONAL RECOMMENDATIONS: - Per SNF: 5'3" and 78lbs/35.45kg. - Check lytes daily, replete as needed - A1c for eval of glycemic control - Wound care: advanced per RN, f/up with WC RN. Add LINA BID w/ GT, Vit C 250mg BID Assessment & Plan: leukocytosis lactic acidosis malnutrition underweight bmi 13 micro noted on abx as per ID cont abx wounds unlikely etiology will follow with local care and evaluation to ensure improving thank you There is a slight degree of image degradation due to motion artifact. The right upper lobe is largely clear following may be some interstitial septal thickening in the apex. The right middle lobe is clear. The right lower lobe demonstrates some atelectasis at the right lung base. There is also a focal 6 mm nodular opacity, image 50 series 5. There is a vague mosaic attenuation pattern. Left upper lobe demonstrates scattered areas of mosaic attenuation superiorly image 10 of series 5 demonstrates a 3 mm left upper lobe nodule.. Irregular consolidative opacities are seen in the inferior left upper lobe. More extensive consolidation in a patchy and irregular distribution are seen in the left lower lobe. There is a small left pleural effusion. The heart is upper limits of normal in size. The ascending thoracic aorta is mildly ectatic. No mediastinal or hilar mass or adenopathy. Unremarkable. No axillary or chest wall mass or adenopathy demonstrated. The bones are unremarkable except for minimal degenerative spondylosis changes and slight anterior bowing of the sternum. The included lung bases demonstrate a gastrostomy which appears well-positioned. There is trace ascites Impression: Opacities in the left lower lobe and also to a lesser extent in the left upper lobe and minimally in the right lower lobe. Appearance is consistent with consolidation rather than mass. Most likely represents pneumonia, appearance nonspecific as regards etiology. Patchy pulmonary edema also possible, among other possibilities Small left pleural effusion Bilateral small nodules, as described. No further follow-up necessary if there are no risk factors for lung carcinoma. There are significant risk factors, then short interval follow-up CT in 6-12 months is recommended Trace ascites (2) Fever (3) Decubitus skin ulcer Assessment & Plan: Emaciated pt whom [presented on admission with Contractures, GT and Multiple Pressure Injuries. DTPI Thoracic Spine(L)1.4cm x (W)0.9cm. Base of Pressure Injury is indurated, Pupuric with surrounding maroon borders. Full Thickness stage 4 Sacral Pressure Injury(L)4.5cm x (W)3.7cm x(D)2.5cm, Undermined Borders clockwise 12-6 by 3.1cm@12o'clock. Base of wound is arleen. Bone is palpable at base of wound. Scattered slough along loose edges. Small amt serous exudate noted. Wound is malodorous. Non- Blanching erythema without in duration periwound. Full thickness stage 4 Pressure Injury L trochanter(L)6.5cm x (W)9cm x 1.4cm. Undermining clockwise 7-5 by 2.6cm @12o'clock. Base of wound 60% fibrinous slough, 40% moist and pink. Bone exposure at base of wound. Edges are detached with scattered slough along borders. Small amt seropurulent exudate noted. Wound is malodorous. Periwound is maroon and indurated. Unstageable Pressure Injury R heel (L)0.6cm x (W)0.6cm.Stable dry eschar with attached edges. Surrounding Heel is boggy with Non-Blanchable erythema. DTPI lateral R Malleolus (L)1.5cm x (W)2.2cm. Base of wound is maroon and fluctuant. No evidence of further skin breakdown periwound. Unstageable Pressure Injury Dorsal R 1st metatarsal(L)0.8cm x (W)1.2cm. Dry eschar with marginal erythema along adherent borders Periwound is erythematous without fluctuance or induration. Non-Blanchable erythema with fluctuance distal/lateral L foot (L)1cm x (W)1cm. Unstageable Pressure Injury L Hallux (L)2.2cm x (W)1.5cm. Dry eschar with surrounding non-blanchable erythema.with fluctuance. Unstageable Pressure Injury Achilles L foot (L)1.5cm x (W)1.5 cm. Stable dry eschar with surrounding Non-blanchable erythema extending into plantar aspect of L heel. L heel is boggy.. Tx.Plan: Apply Cavilon Skin Barrier to Thoracic DTPI . Cover with Optifoam drsg. Change every 7 days and prn. Cleanse Sacral Wound with Dakin's 0.25% Nicki. Loosely pack wound with Dakin's moistened Kerlix. Apply Triad Paste periwound. Cover with Optifoam drsg Daily and prn. Cleanse L trochanteric Wound with Dakin's 0.25% nicki. Loosely pack with Dakin's moistened Kerlix. Apply Triad Paste Periwound. Cover with Optifoam drsg Daily and prn. Apply Betadine to Necrotic areas of L Foot . Cover each site with Optifoam drsg. Change every 3 days and prn. Apply Betadine to To Pressure Injuires R Foot. Cover each site with Optifoam drsgs. Change every 3 days and prn. Reposition at least every 2hours or as tolerated. Off-load heels with Pillow. APM/SOLOMON Mattress overlay. (4) Sepsis (5) Malnutrition Chao Ovalle Aug 08, 2020 12:15
--- NOTE | 2020-08-08 14:07 | Nephrology Progress Note ---
Assessment/Plan Problem List: (1) Electrolyte imbalance (2) Sepsis (3) UTI (urinary tract infection) (4) Dehydration (5) Anemia (6) Hyperglycemia (7) Seizure disorder Assessment Patient is admitted with sepsis, leukocytosis, hypoxia Patient has evidence of UTI Electrolyte imbalances, hypokalemia Hypotension, blood pressure hovering 90 systolic Anemia Hyperglycemia Seizure disorder Plan August 08: Labs reviewed. Renal parameters electrolytes stable. Continue to monitor electrolytes. Continue per consultants. August 07: No CHEM panel drawn today. K-Phos given. Medication list reviewed. Check labs tomorrow. Continue per consultants. IV changed to half-normal saline Start Midodrin Potassium supplement Monitor renal parameters Anemia work-up Per orders Subjective ROS Limited/Unobtainable: Yes Objective Objective Last 24 Hour Vital Signs Date Time Temp Pulse Resp B/P (MAP) Pulse Ox O2 Delivery O2 Flow Rate FiO2 08/08/20 12:00 Room Air 08/08/20 12:00 96.0 91 18 133/76 (95) 97 08/08/20 12:00 86 08/08/20 08:00 97.5 84 20 126/65 (85) 99 08/08/20 08:00 85 08/08/20 08:00 Room Air 08/08/20 04:00 Room Air 08/08/20 04:00 98.1 95 20 119/61 (80) 100 08/08/20 03:34 89 08/08/20 00:00 99.1 91 20 133/64 (87) 100 08/08/20 00:00 Room Air 08/07/20 23:34 90 08/07/20 20:00 Room Air 08/07/20 20:00 97.8 80 20 99/61 (74) 98 08/07/20 19:42 82 08/07/20 19:09 99 Venturi Mask 3.0 28 08/07/20 18:41 Room Air 08/07/20 16:00 98.1 78 20 112/65 (81) 98 08/07/20 16:00 78 08/07/20 15:34 0.5 08/07/20 15:32 1.0 08/07/20 15:30 Room Air Intake and Output 08/07/20 08/08/20 19:00 07:00 Intake Total 600 ml 1499 ml Output Total 950 ml 500 ml Balance -350 ml 999 ml IV Total 899 ml Tube Feeding 600 ml 600 ml Output Urine Total 950 ml 500 ml Current Medications Medications (Trade) Dose Ordered Sig/Alvarado Route PRN Reason Start Time Stop Time Status Last Admin Dose Admin Acetaminophen (Tylenol) 650 mg Q4H PRN GT Mild Pain (Pain Scale 1-3) 08/05/20 11:30 09/04/20 11:29 Acetaminophen (Tylenol) 650 mg Q4H PRN GT TEMP > 100.5 08/05/20 11:45 09/04/20 11:44 Ceftriaxone Sodium 1 gm/ Dextrose 55 ml @ 110 mls/hr Q24H IVPB 08/07/20 13:00 08/14/20 12:59 08/08/20 12:10 Dextrose (Dextrose 50%) 25 ml Q30M PRN IV Hypoglycemia 08/06/20 12:00 11/04/20 11:59 Dextrose (Dextrose 50%) 50 ml Q30M PRN IV Hypoglycemia 08/06/20 12:00 11/04/20 11:59 Heparin Sodium (Porcine) (Heparin 5000 units/ml) 5,000 units EVERY 12 HOURS SUBQ 08/05/20 21:00 09/19/20 20:59 08/08/20 08:23 Insulin Aspart (NovoLOG) Q6HR SUBQ 08/06/20 18:00 11/04/20 17:59 Levetiracetam (Keppra) 500 mg Q12HR GT 08/05/20 21:00 09/04/20 20:59 08/08/20 08:24 Midodrine (Pro-Amatine) 10 mg Q8HR ORAL 08/06/20 14:00 11/04/20 13:59 08/08/20 06:01 Pantoprazole (Protonix) 40 mg Q12HR IVP 08/06/20 21:00 09/05/20 08:59 08/08/20 08:24 Sodium 1,000 ml @ 75 mls/hr [id number] IV 08/06/20 14:00 09/05/20 13:59 08/08/20 05:59 Sodium Hypochlorite (Dakin's Quarter Strength) 1 applic DAILY TOPIC 08/06/20 09:00 09/05/20 08:59 08/08/20 08:23 Vancomycin HCl ([facility] pharmacy to dose) 1 ea DAILY PRN MISC . 08/05/20 14:00 09/04/20 13:59 Vancomycin HCl 750 mg/Sodium Chloride 275 ml @ 183.333 mls/hr Q12H IVPB 08/08/20 20:00 08/13/20 19:59 Laboratory Tests 08/07/20 18:28: POC Whole Blood Glucose 101 08/07/20 23:55: POC Whole Blood Glucose 105 08/08/20 05:44: POC Whole Blood Glucose 122H 08/08/20 07:00: White Blood Count 17.4H, Red Blood Count 3.23L, Hemoglobin 9.0L, Hematocrit 28.0L, Mean Corpuscular Volume 87, Mean Corpuscular Hemoglobin 27.7, Mean Corpuscular Hemoglobin Concent 32.0, Red Cell Distribution Width 14.9H, Platelet Count 312, Mean Platelet Volume 9.4, Neutrophils (%) (Auto) , Lymphocytes (%) (Auto) , Monocytes (%) (Auto) , Eosinophils (%) (Auto) , Basophils (%) (Auto) , Differential Total Cells Counted 100, Neutrophils % (Manual) 90H, Lymphocytes % (Manual) 7L, Monocytes % (Manual) 3, Eosinophils % (Manual) 0, Basophils % (Manual) 0, Band Neutrophils 0, Platelet Estimate Adequate, Platelet Morphology Normal, Hypochromasia 1+, Anisocytosis 1+, Sodium Level 135L, Potassium Level 3.5, Chloride Level 99, Carbon Dioxide Level 29, Anion Gap 7, Blood Urea Nitrogen 8, Creatinine 0.4L, Estimat Glomerular Filtration Rate > 60, Glucose Level 123H, Calcium Level 9.0, Phosphorus Level 2.9, Magnesium Level 2.1, Total Bilirubin 0.4, Aspartate Amino Transf (AST/SGOT) 18, Alanine Aminotransferase (ALT/SGPT) 41, Alkaline Phosphatase 92, C-Reactive Protein, Quantitative 5.5H, Pro-B-Type Natriuretic Peptide 1457H, Total Protein 7.6, Albumin 2.7L, Globulin 4.9, Albumin/Globulin Ratio 0.6L, Vancomycin Level Trough 2.9L 08/08/20 12:09: POC Whole Blood Glucose 110H Height (Feet): 5 Height (Inches): 2.00 Weight (Pounds): 85 General Appearance: no apparent distress, lethargic Cardiovascular: normal rate Respiratory/Chest: decreased breath sounds Abdomen: distended Gabriele Honeycutt MD Aug 08, 2020 14:07
[2020-08-08 16:00] VITALS: BP 120/69
--- NOTE | 2020-08-08 18:57 | General Progress Note ---
Subjective Constitutional: Reports: no symptoms HEENT: Reports: no symptoms Cardiovascular: Reports: no symptoms Respiratory: Reports: no symptoms Gastrointestinal/Abdominal: Reports: no symptoms Genitourinary: Reports: no symptoms Neurologic/Psychiatric: Reports: no symptoms Endocrine: Reports: no symptoms Hematologic/Lymphatic: Reports: no symptoms Allergies: Coded Allergies: ERYTHROMYCIN BASE (Verified Allergy, Unknown, 11/12/16) Objective Last 24 Hour Vital Signs Date Time Temp Pulse Resp B/P (MAP) Pulse Ox O2 Delivery O2 Flow Rate FiO2 08/08/20 16:00 Room Air 08/08/20 16:00 88 08/08/20 12:00 Room Air 08/08/20 12:00 96.0 91 18 133/76 (95) 97 08/08/20 12:00 86 08/08/20 08:00 97.5 84 20 126/65 (85) 99 08/08/20 08:00 85 08/08/20 08:00 Room Air 08/08/20 07:53 98 Room Air 08/08/20 04:00 Room Air 08/08/20 04:00 98.1 95 20 119/61 (80) 100 08/08/20 03:34 89 08/08/20 00:00 99.1 91 20 133/64 (87) 100 08/08/20 00:00 Room Air 08/07/20 23:34 90 08/07/20 20:00 Room Air 08/07/20 20:00 97.8 80 20 99/61 (74) 98 08/07/20 19:42 82 08/07/20 19:09 99 Venturi Mask 3.0 28 Intake and Output 08/07/20 08/08/20 19:00 07:00 Intake Total 600 ml 1499 ml Output Total 950 ml 500 ml Balance -350 ml 999 ml IV Total 899 ml Tube Feeding 600 ml 600 ml Output Urine Total 950 ml 500 ml Laboratory Tests 08/07/20 23:55: POC Whole Blood Glucose 105 08/08/20 05:44: POC Whole Blood Glucose 122H 08/08/20 07:00: White Blood Count 17.4H, Red Blood Count 3.23L, Hemoglobin 9.0L, Hematocrit 28.0L, Mean Corpuscular Volume 87, Mean Corpuscular Hemoglobin 27.7, Mean Corpuscular Hemoglobin Concent 32.0, Red Cell Distribution Width 14.9H, Platelet Count 312, Mean Platelet Volume 9.4, Neutrophils (%) (Auto) , Lymphocytes (%) (Auto) , Monocytes (%) (Auto) , Eosinophils (%) (Auto) , Basophils (%) (Auto) , Differential Total Cells Counted 100, Neutrophils % (Manual) 90H, Lymphocytes % (Manual) 7L, Monocytes % (Manual) 3, Eosinophils % (Manual) 0, Basophils % (Manual) 0, Band Neutrophils 0, Platelet Estimate Adequate, Platelet Morphology Normal, Hypochromasia 1+, Anisocytosis 1+, Sodium Level 135L, Potassium Level 3.5, Chloride Level 99, Carbon Dioxide Level 29, Anion Gap 7, Blood Urea Nitrogen 8, Creatinine 0.4L, Estimat Glomerular Filtration Rate > 60, Glucose Level 123H, Calcium Level 9.0, Phosphorus Level 2.9, Magnesium Level 2.1, Total Bilirubin 0.4, Aspartate Amino Transf (AST/SGOT) 18, Alanine Aminotransferase (ALT/SGPT) 41, Alkaline Phosphatase 92, C-Reactive Protein, Quantitative 5.5H, Pro-B-Type Natriuretic Peptide 1457H, Total Protein 7.6, Albumin 2.7L, Globulin 4.9, Albumin/Globulin Ratio 0.6L, Vancomycin Level Trough 2.9L 08/08/20 12:09: POC Whole Blood Glucose 110H 08/08/20 17:33: POC Whole Blood Glucose 102 Height (Feet): 5 Height (Inches): 2.00 Weight (Pounds): 85 General Appearance: no apparent distress, lethargic EENT: normal ENT inspection Neck: supple Cardiovascular: normal rate, regular rhythm, no gallop/murmur, no JVD Respiratory/Chest: no respiratory distress, no accessory muscle use, decreased breath sounds Abdomen: normal bowel sounds, non tender, soft, no organomegaly, no mass Extremities: non-tender Neurologic: unresponsive, aphasia Assessment/Plan Status Narrative Patient is a febrile hemodynamically stable without fever or tachycardia she respond to tactile stimuli but not to audio verbal and physical exam is unchanged with decreased breath sounds at both bases laboratory tests are marked by progressively increasing WBC for the last 48 hours from 14-15 into 17,000 today she does have elevated BNP and she started today on carvedilol 6.25 mg twice daily and spironolactone 25 mg daily repeat laboratory tests will be done in a.m.'s chest x-ray show an improvement in left lower lobe infiltrate Gale Mays MD, MD, MD Aug 08, 2020 18:57
--- NOTE | 2020-08-08 19:30 | NUR ---
NURSE NOTES: Received patient luciano Venegas RN. patient is sleeping in bed without any acute distress noted. sinus rhythm on the monitor. on room air, tolerating well. right EJ in place, dressing clean dry and intact. bed to lowest position and locked, call light within easy reach, side rails up x2. will continue plan of care.
--- NOTE | 2020-08-08 19:40 | NUR ---
NURSE HAND-OFF REPORT: Important Events on Shift:None Patient Status: full code Diet: Glucerna 1.2 @ 50cc/hr Pending Orders: N Pending Results/Labs:N Pending notification:N Latest Vital Signs: Temperature 98.0 , Pulse 92 , B/P 120 /69 , Respiratory Rate 20 , O2 SAT 99 , Bi-pap, O2 Flow Rate 3.0 . Vital Sign Comment: stable EKG Rhythm: Sinus Rhythm Rhythm change?: N MD Notified?: Y -Dr Rima MENDEZ Response: No New Orders Received Latest Huggins Fall Score: 50 Fall Risk: High Risk Safety Measures: Call light Within Reach, Bed Alarm Zone 1, Side Rails Side Rails x3, Bed position Low and Locked. Fall Precautions: Yellow Socks Yellow Gown Door Sign Patient Fall Education Report given to DURAN Jeronimo.
[2020-08-08 20:00] VITALS: BP 126/74
[2020-08-08] MEDS ORDERED: NS 275ml ONE (20:09)
[2020-08-08] MEDS ORDERED: Sterile Water Irrig 1000ml IRRIG ONE (20:09)
[2020-08-08] MEDS: Carvedilol 6.25mg Tab GT SCH (21:32)
--- NOTE | 2020-08-08 22:00 | NUR ---
NURSE NOTES: medications given. vital signs stable
[2020-08-09] VITALS: BP 101/52
--- NOTE | 2020-08-09 | NUR ---
NURSE NOTES: patient is sleeping without any distress noted. vital signs stable
--- NOTE | 2020-08-09 02:53 | NUR ---
NURSE NOTES: patient remains asleep without any distress noted. vital signs stable
[2020-08-09 04:00] VITALS: BP 117/69
--- NOTE | 2020-08-09 05:00 | NUR ---
NURSE NOTES: bed bath performed. patient had a small BM, soft. repositioned. vital signs stable
[2020-08-09] MEDS: Midodrine 10mg tab ORAL SCH ×3 (05:45→21:14)
[2020-08-09] MEDS: NovoLOG Insulin Flexpen SUBQ SCH ×4 (05:46→23:19)
--- NOTE | 2020-08-09 05:46 | NUR ---
NURSE NOTES: blood glucose 114. no insulin given
[2020-08-09 06:30] LABS: BASOPHILS % (AUTO) 0.4 % (0.0-2.0); EOSINOPHILS % (AUTO) 0.9 % (0.0-3.0); HEMATOCRIT 27.4 % (37.0-47.0); HEMOGLOBIN 8.7 G/DL (12.0-16.0); LYMPHOCYTES % (AUTO) 10.4 % (20.0-45.0); MEAN CORPUSCULAR VOLUME 88 FL (80-99); MONOCYTES % (AUTO) 4.7 % (1.0-10.0); NEUTROPHILS % (AUTO) 83.6 % (45.0-75.0); PLATELET COUNT 329 K/UL (150-450); RED BLOOD COUNT 3.13 M/UL (4.20-5.40); RED CELL DISTRIBUTION WIDTH 14.8 % (11.6-14.8); WHITE BLOOD COUNT 16.3 K/UL (4.8-10.8)
--- NOTE | 2020-08-09 06:46 | Hematology/Onc Progress Note ---
Assessment/Plan Assessment/Plan Assessment and Recs # Leukocytosis with likely sepsis due to pna --> ON ABX vanc/zosyn-->vanc/ctx --> is on ivfs --> abx as per ID --> imaging noted --> wbc 28 # Right lower extremity dvt --> h/h to low for anticoag --> consider repeat lower duplex at this time --> consider ivcf # Anemia due to chronic disease --> hgb 10-->8.2 # Respiratory distress --> r/o covid --> per pulm # Dysphagia s/p peg # CVA hx # HL --> lipitor and asa # Tachycardia --> ivfs should improve # Dvt ppx heparin sq Appreciate consultation and dw Rn Subjective Constitutional: Denies: no symptoms, chills, fever, malaise, weakness, other HEENT: Denies: no symptoms, eye pain, blurred vision, tearing, double vision, ear pain, ear discharge, nose pain, nose congestion, throat pain, throat swellin g, mouth pain, mouth swelling, other Cardiovascular: Denies: no symptoms, chest pain, edema, irregular heart rate, lightheadedness, palpitations, syncope, other Gastrointestinal/Abdominal: Denies: no symptoms, abdomen distended, abdominal pain, black stools, tarry stools, blood in stool, constipated, diarrhea, difficulty swallowing, nausea, poor appetite, poor fluid intake, rectal bleeding, vomiting, other Genitourinary: Denies: no symptoms, burning, discharge, frequency, flank pain, hematuria, incontinence, pain, urgency, other Neurologic/Psychiatric: Denies: no symptoms, anxiety, depressed, emotional problems, headache, numbness, paresthesia, pre-existing deficit, seizure, tingling, tremors, weakness, other Hematologic/Lymphatic: Denies: no symptoms, anemia, easy bleeding, easy bruising, adenopathy, other Allergies: Coded Allergies: ERYTHROMYCIN BASE (Verified Allergy, Unknown, 11/12/16) Subjective 08/09 asleep, on glucerna, meds noted, labs reviewed Objective Objective Current Medications Medications (Trade) Dose Ordered Sig/Alvarado Route PRN Reason Start Time Stop Time Status Last Admin Dose Admin Acetaminophen (Tylenol) 650 mg Q4H PRN GT Mild Pain (Pain Scale 1-3) 08/05/20 11:30 09/04/20 11:29 Acetaminophen (Tylenol) 650 mg Q4H PRN GT TEMP > 100.5 08/05/20 11:45 09/04/20 11:44 Carvedilol (Coreg) 6.25 mg EVERY 12 HOURS GT 08/08/20 21:00 09/07/20 20:59 08/08/20 21:32 Ceftriaxone Sodium 1 gm/ Dextrose 55 ml @ 110 mls/hr Q24H IVPB 08/07/20 13:00 08/14/20 12:59 08/08/20 12:10 Dextrose (Dextrose 50%) 25 ml Q30M PRN IV Hypoglycemia 08/06/20 12:00 11/04/20 11:59 Dextrose (Dextrose 50%) 50 ml Q30M PRN IV Hypoglycemia 08/06/20 12:00 11/04/20 11:59 Heparin Sodium (Porcine) (Heparin 5000 units/ml) 5,000 units EVERY 12 HOURS SUBQ 08/05/20 21:00 09/19/20 20:59 08/08/20 21:36 Insulin Aspart (NovoLOG) Q6HR SUBQ 08/06/20 18:00 11/04/20 17:59 Levetiracetam (Keppra) 500 mg Q12HR GT 08/05/20 21:00 09/04/20 20:59 08/08/20 21:31 Midodrine (Pro-Amatine) 10 mg Q8HR ORAL 08/06/20 14:00 11/04/20 13:59 08/09/20 05:45 Pantoprazole (Protonix) 40 mg Q12HR IVP 08/06/20 21:00 09/05/20 08:59 08/08/20 21:33 Sodium 1,000 ml @ 75 mls/hr [id number] IV 08/06/20 14:00 09/05/20 13:59 08/08/20 19:20 Sodium Hypochlorite (Dakin's Quarter Strength) 1 applic DAILY TOPIC 08/06/20 09:00 09/05/20 08:59 08/08/20 08:23 Spironolactone (Aldactone) 25 mg DAILY GT 08/09/20 09:00 09/08/20 08:59 Vancomycin HCl ([facility] pharmacy to dose) 1 ea DAILY PRN MISC . 08/05/20 14:00 09/04/20 13:59 Vancomycin HCl 750 mg/Sodium Chloride 275 ml @ 183.333 mls/hr Q12H IVPB 08/08/20 20:00 08/13/20 19:59 08/08/20 21:32 Last 24 Hour Vital Signs Date Time Temp Pulse Resp B/P (MAP) Pulse Ox O2 Delivery O2 Flow Rate FiO2 08/09/20 04:00 88 08/09/20 04:00 Room Air 08/09/20 04:00 97.7 86 18 117/69 (85) 98 08/09/20 00:00 98.2 81 20 101/52 (68) 98 08/09/20 00:00 80 08/09/20 00:00 Room Air 08/08/20 21:32 100 126/74 08/08/20 20:00 92 08/08/20 20:00 97.9 100 22 126/74 (91) 100 08/08/20 20:00 Room Air 08/08/20 19:13 99 Room Air 08/08/20 16:00 98.0 92 20 120/69 (86) 99 08/08/20 16:00 Room Air 08/08/20 16:00 88 08/08/20 12:00 Room Air 08/08/20 12:00 96.0 91 18 133/76 (95) 97 08/08/20 12:00 86 08/08/20 08:00 97.5 84 20 126/65 (85) 99 08/08/20 08:00 85 08/08/20 08:00 Room Air 08/08/20 07:53 98 Room Air 08/08/20 04:00 Room Air 08/08/20 04:00 98.1 95 20 119/61 (80) 100 08/08/20 03:34 89 08/08/20 00:00 99.1 91 20 133/64 (87) 100 08/08/20 00:00 Room Air 08/07/20 23:34 90 08/07/20 20:00 Room Air 08/07/20 20:00 97.8 80 20 99/61 (74) 98 08/07/20 19:42 82 08/07/20 19:09 99 Venturi Mask 3.0 28 08/07/20 18:41 Room Air 08/07/20 16:00 98.1 78 20 112/65 (81) 98 08/07/20 16:00 78 08/07/20 15:34 0.5 08/07/20 15:32 1.0 08/07/20 15:30 Room Air 08/07/20 12:00 Venturi Mask 2.0 08/07/20 12:00 80 08/07/20 12:00 97.0 79 22 121/60 (80) 100 08/07/20 11:32 2.0 24 08/07/20 08:00 94 25 130/68 (88) 99 08/07/20 08:00 Venturi Mask 2.0 08/07/20 07:05 99 Venturi Mask 3.0 08/07/20 07:00 95 29 130/63 (85) 100 Intake and Output 08/08/20 08/09/20 19:00 07:00 Intake Total 1645 ml 1360 ml Output Total 1200 ml Balance 445 ml 1360 ml Intake Free Water 90 ml 60 ml IV Total 955 ml 750 ml Tube Feeding 600 ml 550 ml Output Urine Total 1200 ml Labs Test 08/06/20 08:08 08/06/20 12:40 08/07/20 09:52 08/07/20 13:10 Arterial Blood pH 7.494 (7.350-7.450) Arterial Blood Partial Pressure CO2 37.2 mmHg (35.0-45.0) Arterial Blood Partial Pressure O2 117.4 mmHg (75.0-100.0) Arterial Blood HCO3 28.0 mmol/L (22.0-26.0) Arterial Blood Oxygen Saturation 98.4 % (95-100) Arterial Blood Base Excess 4.5 (-2-2) Eduardo Test Positive Uric Acid 1.7 MG/DL (2.6-7.2) Phosphorus Level 2.4 MG/DL (2.5-4.9) Magnesium Level 2.2 MG/DL (1.8-2.4) Iron Level 24 ug/dL (50-175) Total Iron Binding Capacity 139 ug/dL (250-450) Percent Iron Saturation 17 % (15-50) Unsaturated Iron Binding 115 ug/dL (112-346) Vitamin B12 Level 1641 PG/ML (193-986) Folate 15.9 NG/ML (8.6-58.9) White Blood Count 15.2 K/UL (4.8-10.8) Red Blood Count 2.63 M/UL (4.20-5.40) Hemoglobin 7.3 G/DL (12.0-16.0) Hematocrit 23.1 % (37.0-47.0) Mean Corpuscular Volume 88 FL (80-99) Mean Corpuscular Hemoglobin 27.7 PG (27.0-31.0) Mean Corpuscular Hemoglobin Concent 31.6 G/DL (32.0-36.0) Red Cell Distribution Width 14.9 % (11.6-14.8) Platelet Count 234 K/UL (150-450) Mean Platelet Volume 10.5 FL (6.5-10.1) Neutrophils (%) (Auto) % (45.0-75.0) Lymphocytes (%) (Auto) % (20.0-45.0) Monocytes (%) (Auto) % (1.0-10.0) Eosinophils (%) (Auto) % (0.0-3.0) Basophils (%) (Auto) % (0.0-2.0) Differential Total Cells Counted 100 Neutrophils % (Manual) 84 % (45-75) Lymphocytes % (Manual) 12 % (20-45) Monocytes % (Manual) 4 % (1-10) Eosinophils % (Manual) 0 % (0-3) Basophils % (Manual) 0 % (0-2) Band Neutrophils 0 % (0-8) Platelet Estimate Adequate Platelet Morphology Normal Hypochromasia 1+ Anisocytosis 1+ Test 08/07/20 18:28 08/07/20 23:55 08/08/20 05:44 08/08/20 07:00 POC Whole Blood Glucose 101 MG/DL (74-106) 105 MG/DL (74-106) 122 MG/DL (74-106) White Blood Count 17.4 K/UL (4.8-10.8) Red Blood Count 3.23 M/UL (4.20-5.40) Hemoglobin 9.0 G/DL (12.0-16.0) Hematocrit 28.0 % (37.0-47.0) Mean Corpuscular Volume 87 FL (80-99) Mean Corpuscular Hemoglobin 27.7 PG (27.0-31.0) Mean Corpuscular Hemoglobin Concent 32.0 G/DL (32.0-36.0) Red Cell Distribution Width 14.9 % (11.6-14.8) Platelet Count 312 K/UL (150-450) Mean Platelet Volume 9.4 FL (6.5-10.1) Neutrophils (%) (Auto) % (45.0-75.0) Lymphocytes (%) (Auto) % (20.0-45.0) Monocytes (%) (Auto) % (1.0-10.0) Eosinophils (%) (Auto) % (0.0-3.0) Basophils (%) (Auto) % (0.0-2.0) Differential Total Cells Counted 100 Neutrophils % (Manual) 90 % (45-75) Lymphocytes % (Manual) 7 % (20-45) Monocytes % (Manual) 3 % (1-10) Eosinophils % (Manual) 0 % (0-3) Basophils % (Manual) 0 % (0-2) Band Neutrophils 0 % (0-8) Platelet Estimate Adequate Platelet Morphology Normal Hypochromasia 1+ Anisocytosis 1+ Sodium Level 135 MMOL/L (136-145) Potassium Level 3.5 MMOL/L (3.5-5.1) Chloride Level 99 MMOL/L (98-107) Carbon Dioxide Level 29 MMOL/L (21-32) Anion Gap 7 mmol/L (5-15) Blood Urea Nitrogen 8 mg/dL (7-18) Creatinine 0.4 MG/DL (0.55-1.30) Estimat Glomerular Filtration Rate > 60 mL/min (>60) Glucose Level 123 MG/DL (74-106) Calcium Level 9.0 MG/DL (8.5-10.1) Phosphorus Level 2.9 MG/DL (2.5-4.9) Magnesium Level 2.1 MG/DL (1.8-2.4) Total Bilirubin 0.4 MG/DL (0.2-1.0) Aspartate Amino Transf (AST/SGOT) 18 U/L (15-37) Alanine Aminotransferase (ALT/SGPT) 41 U/L (12-78) Alkaline Phosphatase 92 U/L (46-116) C-Reactive Protein, Quantitative 5.5 mg/dL (0.00-0.90) Pro-B-Type Natriuretic Peptide 1457 pg/mL (0-125) Total Protein 7.6 G/DL (6.4-8.2) Albumin 2.7 G/DL (3.4-5.0) Globulin 4.9 g/dL Albumin/Globulin Ratio 0.6 (1.0-2.7) Vancomycin Level Trough 2.9 ug/mL (5.0-12.0) Test 08/08/20 12:09 08/08/20 17:33 08/08/20 23:24 08/09/20 04:39 POC Whole Blood Glucose 110 MG/DL (74-106) 102 MG/DL (74-106) 111 MG/DL (74-106) Test 08/09/20 05:45 POC Whole Blood Glucose 114 MG/DL (74-106) Height (Feet): 5 Height (Inches): 2.00 Weight (Pounds): 85 Objective Physical Exam Sp02 EP Interpretation: reviewed, normal General Appearance: no apparent distress, non-verbal Head: normocephalic, atraumatic ENT: hearing grossly normal, no angioedema Respiratory: chest non-tender, lungs clear, normal breath sounds,++bipap Cardiovascular: no edema, tachycardia Gastrointestinal: normal bowel sounds, non tender, soft, ++gt Rectal: deferred Musculoskeletal: normal inspection Neurologic: alert, motor strength/tone normal, no focal defects Psychiatric: mood/affect normal Skin: other - See RN skin exam. Lymphatic: no adenopathy Gu: valderrama+++ Nate Begum MD Aug 09, 2020 06:46
[2020-08-09 07:09] LABS: ANION GAP 8 mmol/L (5-15); BLOOD UREA NITROGEN 10 mg/dL (7-18); CARBON DIOXIDE 28 MMOL/L (21-32); CHLORIDE 103 MMOL/L (98-107); CREATININE 0.4 MG/DL (0.55-1.30); POTASSIUM 4.1 MMOL/L (3.5-5.1); SODIUM 139 MMOL/L (136-145)
--- NOTE | 2020-08-09 07:20 | NUR ---
NURSE HAND-OFF REPORT: Important Events on Shift: patient remains stable Patient Status: FULL CODE Diet: Glucerna 1.2 @ 50ml/hr Pending Orders: [] Pending Results/Labs:[] Pending MD notification:[] Latest Vital Signs: Temperature 97.7 , Pulse 88 , B/P 117 /69 , Respiratory Rate 18 , O2 SAT 98 , Bi-pap, O2 Flow Rate 3.0 . Vital Sign Comment: stable EKG Rhythm: Sinus Rhythm Rhythm change?: N MD Notified?: Y -Dr Rima MENDEZ Response: No New Orders Received Latest Huggins Fall Score: 50 Fall Risk: High Risk Safety Measures: Call light Within Reach, Bed Alarm Zone 1, Side Rails Side Rails x3, Bed position Low and Locked. Fall Precautions: Yellow Socks Yellow Gown Door Sign Patient Fall Education Report given to DURAN Alaniz.
--- NOTE | 2020-08-09 07:30 | NUR ---
NURSE NOTES: Received report from Phani GARZON.
[2020-08-09 08:00] VITALS: BP 137/72
[2020-08-09] MEDS: Vancomycin 750 MG in NS 275 ML IVPB SCH ×2 (08:20→20:06)
[2020-08-09] MEDS: 1/2NS w/KCl 20mEq 1000ml 1,000 ML IV SCH ×2 (08:21→21:14)
--- NOTE | 2020-08-09 08:30 | NUR ---
NURSE NOTES: Pt. in bed, eyes open, non-verbal. Pt. no sign of s/sx of distress. On R.A. No grimacing noted. HOB elevated at all times. On GTF Glucerna 1.2 at 50cc/hr. IV at left hand #20g. and right IJ #18g. patent/intact running 1/2 NS with 20meq Kcl. at 75cc/hr. F/C in placed patent/intact draining light yasmine colored urine. Bed in low position, locked. Call light within reach. Will cont. to monitor.
[2020-08-09] MEDS: Spironolactone 25mg tab GT SCH (08:46)
[2020-08-09] MEDS: levETIRAcetam 500mg/5ml Liquid GT SCH ×2 (08:46→20:06)
[2020-08-09] MEDS: Carvedilol 6.25mg Tab GT SCH ×2 (08:46→20:06)
[2020-08-09] MEDS: Pantoprazole Inj IVP SCH ×2 (08:46→20:05)
[2020-08-09] MEDS: Dakin's 0.125% Soln (Quarter Strength) 16oz TOPIC SCH (08:48)
[2020-08-09] MEDS: Heparin 5000 units/ml inj SUBQ SCH ×2 (08:48→20:07)
[2020-08-09 12:00] VITALS: BP 127/72
--- NOTE | 2020-08-09 12:10 | NUR ---
NURSE NOTES: Pt. turned and repositioned. On R.A. sat at 98%. No s/sx of distress. No grimacing noted. Oral care rendered.
--- NOTE | 2020-08-09 12:20 | Surgery Progress Note ---
Surgery Progress Note Subjective Additional Comments wbc trending down cxr noted no n/v Objective Last 24 Hour Vital Signs Date Time Temp Pulse Resp B/P (MAP) Pulse Ox O2 Delivery O2 Flow Rate FiO2 08/09/20 08:46 90 125/81 08/09/20 08:00 Room Air 08/09/20 08:00 96.6 105 21 137/72 (93) 99 08/09/20 07:42 81 08/09/20 04:00 88 08/09/20 04:00 Room Air 08/09/20 04:00 97.7 86 18 117/69 (85) 98 08/09/20 00:00 98.2 81 20 101/52 (68) 98 08/09/20 00:00 80 08/09/20 00:00 Room Air 08/08/20 21:32 100 126/74 08/08/20 20:00 92 08/08/20 20:00 97.9 100 22 126/74 (91) 100 08/08/20 20:00 Room Air 08/08/20 19:13 99 Room Air 08/08/20 16:00 98.0 92 20 120/69 (86) 99 08/08/20 16:00 Room Air 08/08/20 16:00 88 I&O Intake and Output 08/08/20 08/09/20 19:00 07:00 Intake Total 1645 ml 1435 ml Output Total 1200 ml Balance 445 ml 1435 ml Intake Free Water 90 ml 60 ml IV Total 955 ml 825 ml Tube Feeding 600 ml 550 ml Output Urine Total 1200 ml Dressing: saturated Cardiovascular: RSR Respiratory: decreased breath sounds Abdomen: soft, non-tender, present bowel sounds Extremities: no cyanosis Laboratory Tests Test 08/08/20 17:33 08/08/20 23:24 08/09/20 04:39 08/09/20 05:45 POC Whole Blood Glucose 102 MG/DL (74-106) 111 MG/DL (74-106) H 114 MG/DL (74-106) H White Blood Count 16.3 K/UL (4.8-10.8) H Red Blood Count 3.13 M/UL (4.20-5.40) L Hemoglobin 8.7 G/DL (12.0-16.0) L Hematocrit 27.4 % (37.0-47.0) L Mean Corpuscular Volume 88 FL (80-99) Mean Corpuscular Hemoglobin 27.9 PG (27.0-31.0) Mean Corpuscular Hemoglobin Concent 31.8 G/DL (32.0-36.0) L Red Cell Distribution Width 14.8 % (11.6-14.8) Platelet Count 329 K/UL (150-450) Mean Platelet Volume 8.5 FL (6.5-10.1) Neutrophils (%) (Auto) 83.6 % (45.0-75.0) H Lymphocytes (%) (Auto) 10.4 % (20.0-45.0) L Monocytes (%) (Auto) 4.7 % (1.0-10.0) Eosinophils (%) (Auto) 0.9 % (0.0-3.0) Basophils (%) (Auto) 0.4 % (0.0-2.0) Sodium Level 139 MMOL/L (136-145) Potassium Level 4.1 MMOL/L (3.5-5.1) Chloride Level 103 MMOL/L (98-107) Carbon Dioxide Level 28 MMOL/L (21-32) Anion Gap 8 mmol/L (5-15) Blood Urea Nitrogen 10 mg/dL (7-18) Creatinine 0.4 MG/DL (0.55-1.30) L Estimat Glomerular Filtration Rate > 60 mL/min (>60) Glucose Level 114 MG/DL (74-106) H Calcium Level 9.0 MG/DL (8.5-10.1) Plan Problems: (1) Leukocytosis Assessment & Plan: (1) Fever (2) Leukocytosis Assessment & Plan: on abx id input appreciated wounds not infected nutrition (3) Tachycardia (4) Decubitus skin ulcer (5) Pyelonephritis (6) Malnutrition (7) Sepsis Assessment & Plan: ill appearing poor skin turgor leukocytosis anemia h/h low trending prbc prn Needs based on underweight, DM 35.5kg 30-40 kcals/kg 0964-3439 total kcals 1.25-2 g protein/kg 44-71 g total protein 25-35ml/kcal mL/kg 888-1243 total fluid mLs NUTRITION DIAGNOSIS: Swallowing difficulty R/T dysphagia as evidenced by pt is Gtube dependent. ENTERAL NUTRITION RECOMMENDATIONS: Glucerna 1.2 @50ml x24 hrs to provide 1200ml, 1440 kcal, 72g pro, 966ml free H2O - As able rec carb control formula for h/o DM. - Start @30ml/hr for 6 hrs, advance as tolerated 10ml/hr q4-6 hrs to goal. - Flush per MD/ HOB over 30 degrees ADDITIONAL RECOMMENDATIONS: - Per SNF: 5'3" and 78lbs/35.45kg. - Check lytes daily, replete as needed - A1c for eval of glycemic control - Wound care: advanced per RN, f/up with WC RN. Add LINA BID w/ GT, Vit C 250mg BID Assessment & Plan: leukocytosis lactic acidosis malnutrition underweight bmi 13 micro noted on abx as per ID cont abx wounds unlikely etiology will follow with local care and evaluation to ensure improving thank you There is a slight degree of image degradation due to motion artifact. The right upper lobe is largely clear following may be some interstitial septal thickening in the apex. The right middle lobe is clear. The right lower lobe demonstrates some atelectasis at the right lung base. There is also a focal 6 mm nodular opacity, image 50 series 5. There is a vague mosaic attenuation pattern. Left upper lobe demonstrates scattered areas of mosaic attenuation superiorly image 10 of series 5 demonstrates a 3 mm left upper lobe nodule.. Irregular consolidative opacities are seen in the inferior left upper lobe. More extensive consolidation in a patchy and irregular distribution are seen in the left lower lobe. There is a small left pleural effusion. The heart is upper limits of normal in size. The ascending thoracic aorta is mildly ectatic. No mediastinal or hilar mass or adenopathy. Unremarkable. No axillary or chest wall mass or adenopathy demonstrated. The bones are unremarkable except for minimal degenerative spondylosis changes and slight anterior bowing of the sternum. The included lung bases demonstrate a gastrostomy which appears well-positioned. There is trace ascites Impression: Opacities in the left lower lobe and also to a lesser extent in the left upper lobe and minimally in the right lower lobe. Appearance is consistent with consolidation rather than mass. Most likely represents pneumonia, appearance nonspecific as regards etiology. Patchy pulmonary edema also possible, among oth er possibilities Small left pleural effusion Bilateral small nodules, as described. No further follow-up necessary if there are no risk factors for lung carcinoma. There are significant risk factors, then short interval follow-up CT in 6-12 months is recommended Trace ascites (2) Fever (3) Decubitus skin ulcer Assessment & Plan: Emaciated pt whom [presented on admission with Contractures, GT and Multiple Pressure Injuries. DTPI Thoracic Spine(L)1.4cm x (W)0.9cm. Base of Pressure Injury is indurated, Pupuric with surrounding maroon borders. Full Thickness stage 4 Sacral Pressure Injury(L)4.5cm x (W)3.7cm x(D)2.5cm, Undermined Borders clockwise 12-6 by 3.1cm@12o'clock. Base of wound is arleen. Bone is palpable at base of wound. Scattered slough along loose edges. Small amt serous exudate noted. Wound is malodorous. Non- Blanching erythema without induration periwound. Full thickness stage 4 Pressure Injury L trochanter(L)6.5cm x (W)9cm x 1.4cm. Undermining clockwise 7-5 by 2.6cm @12o'clock. Base of wound 60% fibrinous slough, 40% moist and pink. Bone exposure at base of wound. Edges are detached with scattered slough along borders. Small amt seropurulent exudate noted. Wound is malodorous. Periwound is maroon and indurated. Unstageable Pressure Injury R heel (L)0.6cm x (W)0.6cm.Stable dry eschar with attached edges. Surrounding Heel is boggy with Non-Blanchable erythema. DTPI lateral R Malleolus (L)1.5cm x (W)2.2cm. Base of wound is maroon and fluctuant. No evidence of further skin breakdown periwound. Unstageable Pressure Injury Dorsal R 1st metatarsal(L)0.8cm x (W)1.2cm. Dry eschar with marginal erythema along adherent borders Periwound is erythematous without fluctuance or induration. Non-Blanchable erythema with fluctuance distal/lateral L foot (L)1cm x (W)1cm. Unstageable Pressure Injury L Hallux (L)2.2cm x (W)1.5cm. Dry eschar with s urrounding non-blanchable erythema.with fluctuance. Unstageable Pressure Injury Achilles L foot (L)1.5cm x (W)1.5 cm. Stable dry eschar with surrounding Non-blanchable erythema extending into plantar aspect of L heel. L heel is boggy.. Tx.Plan: Apply Cavilon Skin Barrier to Thoracic DTPI . Cover with Optifoam drsg. Change every 7 days and prn. Cleanse Sacral Wound with Dakin's 0.25% Nicki. Loosely pack wound with Dakin's moistened Kerlix. Apply Triad Paste periwound. Cover with Optifoam drsg Daily and prn. Cleanse L trochanteric Wound with Dakin's 0.25% nicki. Loosely pack with Dakin's moistened Kerlix. Apply Triad Paste Periwound. Cover with Optifoam drsg Daily and prn. Apply Betadine to Necrotic areas of L Foot . Cover each site with Optifoam drsg. Change every 3 days and prn. Apply Betadine to To Pressure Injuires R Foot. Cover each site with Optifoam drsgs. Change every 3 days and prn. Reposition at least every 2hours or as tolerated. Off-load heels with Pillow. APM/SOLOMON Mattress overlay. (4) Sepsis (5) Malnutrition GavinChao holden Aug 09, 2020 12:20
--- NOTE | 2020-08-09 12:32 | NUR ---
RD ASSESSMENT & RECOMMENDATIONS SEE CARE ACTIVITY FOR COMPLETE ASSESSMENT DAILY ESTIMATED NEEDS: Needs based on underweight, wounds, DM 36kg 30-40 kcals/kg 1095-2582 total kcals 1.25-2 g protein/kg 45-72 g total protein 25-35ml/kcal mL/kg 900-1260 total fluid mLs NUTRITION DIAGNOSIS: Swallowing difficulty R/T dysphagia as evidenced by pt is Gtube dependent. (CURRENT TF: now Glucerna 1.2 @50) ENTERAL NUTRITION RECOMMENDATIONS: Glucerna 1.2 @50ml x24 hrs to provide 1200ml, 1440 kcal, 72g pro, 966ml free H2O - On bipap, as medically able rec Glucerna 1.2, carb control. - Start @30ml/hr for 6hrs, advance as tolerated 10ml/hr q4-6 hrs to goal. - Flush per MD/ HOB over 30 degrees ADDITIONAL RECOMMENDATIONS: - Per SNF: 5'3" and 78lbs/35.45kg. - Check lytes daily, replete as needed (K 3.2-> now wnl, on aldactone) - Wound care: add LINA BID when TF is at goal TF @ goal provides 100% RDI Vit C 500mg BID, Zn SO4 220mg/day for 10 days . .
[2020-08-09] MEDS: cefTRIAXone 1 GM in D5W 55 ML IVPB SCH (13:32)
--- NOTE | 2020-08-09 14:29 | Nephrology Progress Note ---
Assessment/Plan Problem List: (1) Electrolyte imbalance (2) Sepsis (3) UTI (urinary tract infection) (4) Dehydration (5) Anemia (6) Hyperglycemia (7) Seizure disorder Assessment Patient is admitted with sepsis, leukocytosis, hypoxia Patient has evidence of UTI Electrolyte imbalances, hypokalemia Hypotension, blood pressure hovering 90 systolic Anemia Hyperglycemia Seizure disorder Plan August 09: Labs reviewed. Renal parameters and electrolytes stable. Continue per consultants. August 08: Labs reviewed. Renal parameters electrolytes stable. Continue to monitor electrolytes. Continue per consultants. August 07: No CHEM panel drawn today. K-Phos given. Medication list reviewed. Check labs tomorrow. Continue per consultants. IV changed to half-normal saline Start Midodrin Potassium supplement Monitor renal parameters Anemia work-up Per orders Subjective ROS Limited/Unobtainable: No Constitutional: Reports: malaise Objective Objective Last 24 Hour Vital Signs Date Time Temp Pulse Resp B/P (MAP) Pulse Ox O2 Delivery O2 Flow Rate FiO2 08/09/20 12:00 98.0 91 18 127/72 (90) 96 08/09/20 08:46 90 125/81 08/09/20 08:00 Room Air 08/09/20 08:00 96.6 105 21 137/72 (93) 99 08/09/20 07:42 81 08/09/20 04:00 88 08/09/20 04:00 Room Air 08/09/20 04:00 97.7 86 18 117/69 (85) 98 08/09/20 00:00 98.2 81 20 101/52 (68) 98 08/09/20 00:00 80 08/09/20 00:00 Room Air 08/08/20 21:32 100 126/74 08/08/20 20:00 92 08/08/20 20:00 97.9 100 22 126/74 (91) 100 08/08/20 20:00 Room Air 08/08/20 19:13 99 Room Air 08/08/20 16:00 98.0 92 20 120/69 (86) 99 08/08/20 16:00 Room Air 08/08/20 16:00 88 Intake and Output 08/08/20 08/09/20 19:00 07:00 Intake Total 1645 ml 1510 ml Output Total 1200 ml Balance 445 ml 1510 ml Intake Free Water 90 ml 60 ml IV Total 955 ml 900 ml Tube Feeding 600 ml 550 ml Output Urine Total 1200 ml Current Medications Medications (Trade) Dose Ordered Sig/Alvarado Route PRN Reason Start Time Stop Time Status Last Admin Dose Admin Acetaminophen (Tylenol) 650 mg Q4H PRN GT Mild Pain (Pain Scale 1-3) 08/05/20 11:30 09/04/20 11:29 Acetaminophen (Tylenol) 650 mg Q4H PRN GT TEMP > 100.5 08/05/20 11:45 09/04/20 11:44 Carvedilol (Coreg) 6.25 mg EVERY 12 HOURS GT 08/08/20 21:00 09/07/20 20:59 08/09/20 08:46 Ceftriaxone Sodium 1 gm/ Dextrose 55 ml @ 110 mls/hr Q24H IVPB 08/07/20 13:00 08/14/20 12:59 08/09/20 13:32 Dextrose (Dextrose 50%) 25 ml Q30M PRN IV Hypoglycemia 08/06/20 12:00 11/04/20 11:59 Dextrose (Dextrose 50%) 50 ml Q30M PRN IV Hypoglycemia 08/06/20 12:00 11/04/20 11:59 Heparin Sodium (Porcine) (Heparin 5000 units/ml) 5,000 units EVERY 12 HOURS SUBQ 08/05/20 21:00 09/19/20 20:59 08/09/20 08:48 Insulin Aspart (NovoLOG) Q6HR SUBQ 08/06/20 18:00 11/04/20 17:59 Levetiracetam (Keppra) 500 mg Q12HR GT 08/05/20 21:00 09/04/20 20:59 08/09/20 08:46 Midodrine (Pro-Amatine) 10 mg Q8HR ORAL 08/06/20 14:00 11/04/20 13:59 08/09/20 13:32 Pantoprazole (Protonix) 40 mg Q12HR IVP 08/06/20 21:00 09/05/20 08:59 08/09/20 08:46 Sodium 1,000 ml @ 75 mls/hr [id number] IV 08/06/20 14:00 09/05/20 13:59 08/09/20 08:21 Sodium Hypochlorite (Dakin's Quarter Strength) 1 applic DAILY TOPIC 08/06/20 09:00 09/05/20 08:59 08/09/20 08:48 Spironolactone (Aldactone) 25 mg DAILY GT 08/09/20 09:00 09/08/20 08:59 08/09/20 08:46 [facility] 1 ea DAILY PRN MISC . 08/05/20 14:00 09/04/20 13:59 Vancomycin HCl 750 mg/Sodium Chloride 275 ml @ 183.333 mls/hr Q12H IVPB 08/08/20 20:00 08/13/20 19:59 08/09/20 08:20 Laboratory Tests 08/08/20 17:33: POC Whole Blood Glucose 102 08/08/20 23:24: POC Whole Blood Glucose 111H 08/09/20 04:39: White Blood Count 16.3H, Red Blood Count 3.13L, Hemoglobin 8.7L, Hematocrit 27.4L, Mean Corpuscular Volume 88, Mean Corpuscular Hemoglobin 27.9, Mean Corpuscular Hemoglobin Concent 31.8L, Red Cell Distribution Width 14.8, Platelet Count 329, Mean Platelet Volume 8.5, Neutrophils (%) (Auto) 83.6H, Lymphocytes (%) (Auto) 10.4L, Monocytes (%) (Auto) 4.7, Eosinophils (%) (Auto) 0.9, Basophils (%) (Auto) 0.4, Sodium Level 139, Potassium Level 4.1, Chloride Level 103, Carbon Dioxide Level 28, Anion Gap 8, Blood Urea Nitrogen 10, Creatinine 0.4L, Estimat Glomerular Filtration Rate > 60, Glucose Level 114H, Calcium Level 9.0 08/09/20 05:45: POC Whole Blood Glucose 114H Height (Feet): 5 Height (Inches): 2.00 Weight (Pounds): 85 General Appearance: no apparent distress EENT: other - Oxygen in room air Cardiovascular: tachycardia Respiratory/Chest: decreased breath sounds Abdomen: distended Gabriele Honeycutt MD Aug 09, 2020 14:29
[2020-08-09 16:00] VITALS: BP 93/73
--- NOTE | 2020-08-09 17:15 | NUR ---
NURSE NOTES: Seen by Dr. Abarca with new order for CXR.
--- NOTE | 2020-08-09 17:42 | General Progress Note ---
Subjective Constitutional: Reports: no symptoms HEENT: Reports: no symptoms Cardiovascular: Reports: no symptoms Respiratory: Reports: no symptoms Gastrointestinal/Abdominal: Reports: no symptoms Genitourinary: Reports: no symptoms Neurologic/Psychiatric: Reports: no symptoms Endocrine: Reports: no symptoms Hematologic/Lymphatic: Reports: no symptoms Allergies: Coded Allergies: ERYTHROMYCIN BASE (Verified Allergy, Unknown, 11/12/16) Objective Last 24 Hour Vital Signs Date Time Temp Pulse Resp B/P (MAP) Pulse Ox O2 Delivery O2 Flow Rate FiO2 08/09/20 16:00 98.1 88 20 93/73 (80) 97 08/09/20 15:32 99 08/09/20 12:00 Room Air 08/09/20 12:00 98.0 91 18 127/72 (90) 96 08/09/20 11:40 92 08/09/20 08:46 90 125/81 08/09/20 08:00 Room Air 08/09/20 08:00 96.6 105 21 137/72 (93) 99 08/09/20 07:42 81 08/09/20 04:00 88 08/09/20 04:00 Room Air 08/09/20 04:00 97.7 86 18 117/69 (85) 98 08/09/20 00:00 98.2 81 20 101/52 (68) 98 08/09/20 00:00 80 08/09/20 00:00 Room Air 08/08/20 21:32 100 126/74 08/08/20 20:00 92 08/08/20 20:00 97.9 100 22 126/74 (91) 100 08/08/20 20:00 Room Air 08/08/20 19:13 99 Room Air Intake and Output 08/08/20 08/09/20 19:00 07:00 Intake Total 1645 ml 1560 ml Output Total 1200 ml Balance 445 ml 1560 ml Intake Free Water 90 ml 60 ml IV Total 955 ml 900 ml Tube Feeding 600 ml 600 ml Output Urine Total 1200 ml Laboratory Tests 08/08/20 23:24: POC Whole Blood Glucose 111H 08/09/20 04:39: White Blood Count 16.3H, Red Blood Count 3.13L, Hemoglobin 8.7L, Hematocrit 27.4L, Mean Corpuscular Volume 88, Mean Corpuscular Hemoglobin 27.9, Mean Corpuscular Hemoglobin Concent 31.8L, Red Cell Distribution Width 14.8, Platelet Count 329, Mean Platelet Volume 8.5, Neutrophils (%) (Auto) 83.6H, Lymphocytes (%) (Auto) 10.4L, Monocytes (%) (Auto) 4.7, Eosinophils (%) (Auto) 0.9, Basophils (%) (Auto) 0.4, Sodium Level 139, Potassium Level 4.1, Chloride Level 103, Carbon Dioxide Level 28, Anion Gap 8, Blood Urea Nitrogen 10, Creatinine 0.4L, Estimat Glomerular Filtration Rate > 60, Glucose Level 114H, Calcium Level 9.0 08/09/20 05:45: POC Whole Blood Glucose 114H Height (Feet): 5 Height (Inches): 2.00 Weight (Pounds): 85 General Appearance: no apparent distress, lethargic EENT: normal ENT inspection Neck: supple Cardiovascular: normal rate, regular rhythm, no gallop/murmur, no JVD Respiratory/Chest: no respiratory distress, no accessory muscle use, decreased breath sounds Abdomen: normal bowel sounds, non tender, soft, no organomegaly, no mass Extremities: non-tender Neurologic: responsive, aphasia Assessment/Plan Status Narrative Patient is awake alert febrile hemodynamically stable there is brief eye contact very short attention span no verbal response respond more to tactile and audio stimuli laboratory tests revealed a WBC declined from 17-16 she is on vancomycin and ceftriaxone her sputum grew staph MRSA she tolerated her second tube feeding however she appears daily lethargic repeat laboratory test and chest x-ray will be done in a.m. as a Gale Royal MD, MD Aug 09, 2020 17:41
--- NOTE | 2020-08-09 19:21 | NUR ---
NURSE HAND-OFF REPORT: Important Events on Shift: Pt. remain stable Patient Status: stable Diet: Glucerna 1.2 at 50cc/hr Pending Orders: [] Pending Results/Labs:[] Pending MD notification:[] Latest Vital Signs: Temperature 98.1 , Pulse 88 , B/P 93 /73 , Respiratory Rate 20 , O2 SAT 97 , Bi-pap, O2 Flow Rate 3.0 . Vital Sign Comment: wnl EKG Rhythm: Sinus Rhythm Rhythm change?: N Notified?: Y -Dr Rima MENDEZ Response: No New Orders Received Latest Huggins Fall Score: 50 Fall Risk: High Risk Safety Measures: Call light Within Reach, Bed Alarm Zone 1, Side Rails Side Rails x3, Bed position Low and Locked. Fall Precautions: Yellow Socks Yellow Gown Door Sign Patient Fall Education Report given to Emmie GARZON.
--- NOTE | 2020-08-09 19:26 | NUR ---
NURSE NOTES: Received report from DURAN Alaniz. Pt is sleeping, arousable to shaking, aphasic, no tracking. No signs of distress or pain noted. FLACC score 0, SR on equipment monitor phototypesetting, SpO2 97% on RA. GT intact, running glucerna 1.2 50cc/hr. Gallardo intact and draining well to gravity. R EJ 18G intact, asymptomatic, running 1/2 NS 20mEQ KCL at 75cc/hr. L hand 20g intact and flushing well. Skin issues noted. Allergies noted and reinforced. Fall, aspiration, and seizure precautions noted and reinforced. HOB elevated, side rails x3 and padded, call light within reach, bed alarmed. locked, and in lowest position. Will continue plan of care. Will continue to monitor.
[2020-08-09 20:00] VITALS: BP 128/65
--- NOTE | 2020-08-09 21:56 | NUR ---
NURSE NOTES: No signs of acute distress noted. Administered PM meds. no change in status. Will continue to monitor.
[2020-08-10] VITALS: BP 125/78
--- NOTE | 2020-08-10 00:45 | NUR ---
NURSE NOTES: Pt asleep, SR on monitor, SpO2 95% on RA. No signs of acute distress or pain. Will continue to monitor.
--- NOTE | 2020-08-10 03:05 | NUR ---
NURSE NOTES: Bed bath given. No BM noted. Changed dressing for B trochanter and sacral wound. Other dressings dry and intact. Oral care provided. Tolerating feeding well. Linens and beddings changed. Bed alarmed, locked, and in lowest position. Will continue to monitor.
--- NOTE | 2020-08-10 03:59 | History and Physical Report ---
DATE OF ADMISSION: 08/05/2020 HISTORY OF PRESENT ILLNESS: This is one of several admissions to [facility] of this 69-year-old lady, who was brought by paramedics to [facility] because of hypoxia and tachycardia. Assessment in the emergency room with the patient is hypoxia and pneumonia. She looked quite toxic in spite of nontoxic biological milieu, and the patient was admitted to the intensive care unit. PAST MEDICAL HISTORY: The patient had acute respiratory distress that required tracheostomy and gastrostomy and was able to be weaned from the tracheostomy and remained on gastrostomy tube for the last several years. The initial episode was . She did have a positive COVID-19 PCR test more than 10 days ago. However, the test became negative prior to the last discharge to a long term on previous admission. The patient was discharged from this institution less than 2 weeks ago after an admission for sepsis and pneumonia. She was transferred to an extended care facility. During that period, she was and recommended today for inpatient admission to a convalescent hospital. It was in the last few days of isolation that the patient developed hypoxia and tachycardia. There is no other surgical history. Medically, the patient has hyperlipidemia, chronic psychosis, seizure disorder, chronic hypercoagulation, and hypovitaminosis D. MEDICATIONS: The patient is on ascorbic acid 500 mg daily, atorvastatin 10 mg daily, benztropine mesylate 1 mg daily, cholecalciferol 5000 international units daily. She is on motility disorder medications on a p.r.n. basis. She is on amitriptyline 40 mg subcu daily. She is on levetiracetam 500 mg b.i.d., midodrine 10 mg q.8h. p.r.n. for blood pressure below 90. She is on multivitamin and potassium chloride. FAMILY HISTORY: Noncontributory. SOCIAL HISTORY: She is single. She was born in [place]. She has been on SSI for many years. Prior to the appearance of the total disability, she was unemployed as well because of chronic psychosis. HABITS: The patient did not smoke, drink, or use illicit drugs. REVIEW OF SYSTEMS: The patient is unable to give any information regarding her state of health. PHYSICAL EXAMINATION: VITAL SIGNS: Blood pressure is 131/104, pulse is 115, respirations are 22, temperature was 99. HEENT: Eyes were normal. Her eyes are closed, but on lifting the eyelids, the patient's pupils are round, active, and reacting to light. Sclerae were white. Conjunctivae were pink. Extraocular movements were normal to the extent that could be assessed. Temporal arteries were palpable bilaterally. There was bilateral temporal wasting. Visual palomares to confrontation and neglect sign could not be assessed. ENT, mucous membranes were not dehydrated. Auditory canals were clear and tympanic membranes could not be visualized. Nasal cavity was not congested. Nasal septum was intact. Soft palate was free of ulceration. Pharynx could not be visualized. Tongue was slightly dry, midline, and normally papillated. NECK: Supple. There was no goiter. No mass. No lymphadenopathy. There was no JVD. No bruits. Carotid upstroke was 2+. LUNGS: There were bilateral rhonchi in both lung palomares. It was more on the right than on the left. HEART: PMI was at fifth left intercostal space, midclavicular line. Normal S1 and normal S2. There was no murmur. No arrhythmia. No S3. No S4. No pericardial rub. There was tachycardia at rest, sinus tachycardia on monitor. ABDOMEN: Soft, flat, nontender without organomegaly. There were no masses palpable. Normal bowel sounds without bruit. There was no guarding. No rebound tenderness. No ascites. No hernia. No CVA tenderness. Liver span was 8 cm, mostly nontender. EXTREMITIES: There was no cyanosis, no clubbing, and no edema. Extremities were warm. NEUROLOGICAL: Reflexes in biceps, triceps, and brachioradialis were present. Patellar retinaculum was present. Plantars were indifferent. Cranial nerves II to XII were symmetric and equal. Cerebellar function, there was no tremor. No nystagmus. No extrapyramidal rigidity. Sensory exam to pinprick, cotton touch, position, and motor strength could not be assessed because of the patient's clinical status. LABORATORY AND DIAGNOSTIC DATA: Hemoglobin is 10.1, hematocrit 33.1 with MCV of 89, WBC of 30,000, and platelets are 286. Her BUN and creatinine were 26 and 0.5 respectively. Her sodium is 145, potassium 3.9, chloride 110, CO2 is 28. Liver function tests were normal. Phosphorus was 9.4. Her lactic acid was 1.7. Albumin is 1.9 and total protein is 7.2. Her lipase was normal. Her INR was 3.8. Her PTT was more than 150 and D-dimer was 2.97. Her urinalysis shows 30-40 wbc's per high-power field and 30-40 rbc's per high-power field. She was 3+ positive for leukocyte esterase and for nitrite. Her chest x-ray shows left infrahilar and basilar infiltrate, likely pneumonia. There was questionable infiltrate on the right side as well. IMPRESSION: The patient had aspiration pneumonia in ECF. Most of the time, she is not responding and unable to defend herself. She is currently on vancomycin and Zosyn. The blood culture will be available. Infectious disease chain sales consultant and surgical resident were called to assist in the management of this case. Repeat laboratory tests will be done in the a.m. Gale Abarca M.D. DR: KUSHAL JOB#: [id number] CC:
[2020-08-10 04:00] VITALS: BP 118/78
[2020-08-10] MEDS: NovoLOG Insulin Flexpen SUBQ SCH ×3 (05:07→18:00)
[2020-08-10] MEDS: Midodrine 10mg tab ORAL SCH ×3 (05:07→20:59)
--- NOTE | 2020-08-10 07:33 | NUR ---
NURSE HAND-OFF REPORT: Important Events on Shift:[No acute events] Patient Status: [Stable] Diet: [Glucerna 1.2 50] Pending Orders: [NA] Pending Results/Labs:[NA] Pending MD notification:[NA] Latest Vital Signs: Temperature 97.5 , Pulse 98 , B/P 118 /78 , Respiratory Rate 20 , O2 SAT 97 , Bi-pap, O2 Flow Rate 3.0 . Vital Sign Comment: [Stable] EKG Rhythm: Sinus Rhythm Rhythm change?: N Notified?: Y -Dr Rima MENDEZ Response: No New Orders Received Latest Huggins Fall Score: 50 Fall Risk: High Risk Safety Measures: Call light Within Reach, Bed Alarm Zone 1, Side Rails Side Rails x3, Bed position Low and Locked. Fall Precautions: Yellow Socks Yellow Gown Door Sign Patient Fall Education Report given to [DURAN Patricio].
--- NOTE | 2020-08-10 07:42 | Hematology/Onc Progress Note ---
Assessment/Plan Assessment/Plan Assessment and Recs # Leukocytosis with likely sepsis due to pna --> ON ABX vanc/zosyn-->vanc/ctx --> is on ivfs --> abx as per ID --> imaging noted --> wbc 28-->16 # Right lower extremity dvt --> h/h to low for anticoag --> consider repeat lower duplex at this time --> consider ivcf # Anemia due to chronic disease --> hgb 10-->8.2 # Respiratory distress --> r/o covid --> per pulm # Dysphagia s/p peg # CVA hx # HL --> lipitor and asa # Tachycardia --> ivfs should improve # Dvt ppx heparin sq Appreciate consultation and iraida Rn Subjective HEENT: Denies: no symptoms, eye pain, blurred vision, tearing, double vision, ear pain, ear discharge, nose pain, nose congestion, throat pain, throat swelling, mouth pain, mouth swelling, other Cardiovascular: Denies: no symptoms, chest pain, edema, irregular heart rate, lightheadedness, palpitations, syncope, other Respiratory: Denies: no symptoms, cough, shortness of breath, SOB with excertion, SOB at rest, sputum, wheezing, other Allergies: Coded Allergies: ERYTHROMYCIN BASE (Verified Allergy, Unknown, 11/12/16) All Systems: reviewed and negative except above Subjective 08/09 asleep, on glucerna, meds noted, labs reviewed 08/10 labs reviewed, meds noted, no bleeding, iraida rn, on fluids Objective Objective Current Medications Medications (Trade) Dose Ordered Sig/Alvarado Route PRN Reason Start Time Stop Time Status Last Admin Dose Admin Acetaminophen (Tylenol) 650 mg Q4H PRN GT Mild Pain (Pain Scale 1-3) 08/05/20 11:30 09/04/20 11:29 Acetaminophen (Tylenol) 650 mg Q4H PRN GT TEMP > 100.5 08/05/20 11:45 09/04/20 11:44 Carvedilol (Coreg) 6.25 mg EVERY 12 HOURS GT 08/08/20 21:00 09/07/20 20:59 08/09/20 20:06 Ceftriaxone Sodium 1 gm/ Dextrose 55 ml @ 110 mls/hr Q24H IVPB 08/07/20 13:00 08/14/20 12:59 08/09/20 13:32 Dextrose (Dextrose 50%) 25 ml Q30M PRN IV Hypoglycemia 08/06/20 12:00 11/04/20 11:59 Dextrose (Dextrose 50%) 50 ml Q30M PRN IV Hypoglycemia 08/06/20 12:00 11/04/20 11:59 Heparin Sodium (Porcine) (Heparin 5000 units/ml) 5,000 units EVERY 12 HOURS SUBQ 08/05/20 21:00 09/19/20 20:59 08/09/20 20:07 Insulin Aspart (NovoLOG) Q6HR SUBQ 08/06/20 18:00 11/04/20 17:59 Levetiracetam (Keppra) 500 mg Q12HR GT 08/05/20 21:00 09/04/20 20:59 08/09/20 20:06 Midodrine (Pro-Amatine) 10 mg Q8HR ORAL 08/06/20 14:00 11/04/20 13:59 08/10/20 05:07 Pantoprazole (Protonix) 40 mg Q12HR IVP 08/06/20 21:00 09/05/20 08:59 08/09/20 20:05 Sodium 1,000 ml @ 75 mls/hr [id number] IV 08/06/20 14:00 09/05/20 13:59 08/09/20 21:14 Sodium Hypochlorite (Dakin's Quarter Strength) 1 applic DAILY TOPIC 08/06/20 09:00 09/05/20 08:59 08/09/20 08:48 Spironolactone (Aldactone) 25 mg DAILY GT 08/09/20 09:00 09/08/20 08:59 08/09/20 08:46 Vancomycin HCl (Vanco pharmacy to dose) 1 ea DAILY PRN MISC . 08/05/20 14:00 09/04/20 13:59 Vancomycin HCl 750 mg/Sodium Chloride 275 ml @ 183.333 mls/hr Q12H IVPB 08/08/20 20:00 08/13/20 19:59 08/09/20 20:06 Last 24 Hour Vital Signs Date Time Temp Pulse Resp B/P (MAP) Pulse Ox O2 Delivery O2 Flow Rate FiO2 08/10/20 04:00 97.5 96 20 118/78 (91) 97 08/10/20 04:00 98 08/10/20 04:00 Room Air 08/10/20 00:00 Room Air 08/10/20 00:00 97.3 89 23 125/78 (94) 96 08/10/20 00:00 90 08/09/20 20:06 83 128/65 08/09/20 20:00 89 08/09/20 20:00 97.7 83 21 128/65 (86) 97 08/09/20 20:00 Room Air 08/09/20 19:36 96 Room Air 08/09/20 16:00 Room Air 08/09/20 16:00 98.1 88 20 93/73 (80) 97 08/09/20 15:32 99 08/09/20 12:00 Room Air 08/09/20 12:00 98.0 91 18 127/72 (90) 96 08/09/20 11:40 92 08/09/20 08:46 90 125/81 08/09/20 08:30 99 Room Air 08/09/20 08:00 Room Air 08/09/20 08:00 96.6 105 21 137/72 (93) 99 08/09/20 07:42 81 08/09/20 04:00 88 08/09/20 04:00 Room Air 08/09/20 04:00 97.7 86 18 117/69 (85) 98 08/09/20 00:00 98.2 81 20 101/52 (68) 98 08/09/20 00:00 80 08/09/20 00:00 Room Air 08/08/20 21:32 100 126/74 08/08/20 20:00 92 08/08/20 20:00 97.9 100 22 126/74 (91) 100 08/08/20 20:00 Room Air 08/08/20 19:13 99 Room Air 08/08/20 16:00 98.0 92 20 120/69 (86) 99 08/08/20 16:00 Room Air 08/08/20 16:00 88 08/08/20 12:00 Room Air 08/08/20 12:00 96.0 91 18 133/76 (95) 97 08/08/20 12:00 86 08/08/20 08:00 97.5 84 20 126/65 (85) 99 08/08/20 08:00 85 08/08/20 08:00 Room Air 08/08/20 07:53 98 Room Air Intake and Output 08/09/20 08/10/20 19:00 07:00 Intake Total 1800 ml 1475 ml Output Total 1200 ml 1800 ml Balance 600 ml -325 ml Intake Free Water 300 ml 100 ml IV Total 900 ml 825 ml Tube Feeding 600 ml 550 ml Output Urine Total 1200 ml 1800 ml Labs Test 08/07/20 09:52 08/07/20 13:10 08/07/20 18:28 08/07/20 23:55 White Blood Count 15.2 K/UL (4.8-10.8) Red Blood Count 2.63 M/UL (4.20-5.40) Hemoglobin 7.3 G/DL (12.0-16.0) Hematocrit 23.1 % (37.0-47.0) Mean Corpuscular Volume 88 FL (80-99) Mean Corpuscular Hemoglobin 27.7 PG (27.0-31.0) Mean Corpuscular Hemoglobin Concent 31.6 G/DL (32.0-36.0) Red Cell Distribution Width 14.9 % (11.6-14.8) Platelet Count 234 K/UL (150-450) Mean Platelet Volume 10.5 FL (6.5-10.1) Neutrophils (%) (Auto) % (45.0-75.0) Lymphocytes (%) (Auto) % (20.0-45.0) Monocytes (%) (Auto) % (1.0-10.0) Eosinophils (%) (Auto) % (0.0-3.0) Basophils (%) (Auto) % (0.0-2.0) Differential Total Cells Counted 100 Neutrophils % (Manual) 84 % (45-75) Lymphocytes % (Manual) 12 % (20-45) Monocytes % (Manual) 4 % (1-10) Eosinophils % (Manual) 0 % (0-3) Basophils % (Manual) 0 % (0-2) Band Neutrophils 0 % (0-8) Platelet Estimate Adequate Platelet Morphology Normal Hypochromasia 1+ Anisocytosis 1+ POC Whole Blood Glucose 101 MG/DL (74-106) 105 MG/DL (74-106) Test 08/08/20 05:44 08/08/20 07:00 08/08/20 12:09 08/08/20 17:33 POC Whole Blood Glucose 122 MG/DL (74-106) 110 MG/DL (74-106) 102 MG/DL (74-106) White Blood Count 17.4 K/UL (4.8-10.8) Red Blood Count 3.23 M/UL (4.20-5.40) Hemoglobin 9.0 G/DL (12.0-16.0) Hematocrit 28.0 % (37.0-47.0) Mean Corpuscular Volume 87 FL (80-99) Mean Corpuscular Hemoglobin 27.7 PG (27.0-31.0) Mean Corpuscular Hemoglobin Concent 32.0 G/DL (32.0-36.0) Red Cell Distribution Width 14.9 % (11.6-14.8) Platelet Count 312 K/UL (150-450) Mean Platelet Volume 9.4 FL (6.5-10.1) Neutrophils (%) (Auto) % (45.0-75.0) Lymphocytes (%) (Auto) % (20.0-45.0) Monocytes (%) (Auto) % (1.0-10.0) Eosinophils (%) (Auto) % (0.0-3.0) Basophils (%) (Auto) % (0.0-2.0) Differential Total Cells Counted 100 Neutrophils % (Manual) 90 % (45-75) Lymphocytes % (Manual) 7 % (20-45) Monocytes % (Manual) 3 % (1-10) Eosinophils % (Manual) 0 % (0-3) Basophils % (Manual) 0 % (0-2) Band Neutrophils 0 % (0-8) Platelet Estimate Adequate Platelet Morphology Normal Hypochromasia 1+ Anisocytosis 1+ Sodium Level 135 MMOL/L (136-145) Potassium Level 3.5 MMOL/L (3.5-5.1) Chloride Level 99 MMOL/L (98-107) Carbon Dioxide Level 29 MMOL/L (21-32) Anion Gap 7 mmol/L (5-15) Blood Urea Nitrogen 8 mg/dL (7-18) Creatinine 0.4 MG/DL (0.55-1.30) Estimat Glomerular Filtration Rate > 60 mL/min (>60) Glucose Level 123 MG/DL (74-106) Calcium Level 9.0 MG/DL (8.5-10.1) Phosphorus Level 2.9 MG/DL (2.5-4.9) Magnesium Level 2.1 MG/DL (1.8-2.4) Total Bilirubin 0.4 MG/DL (0.2-1.0) Aspartate Amino Transf (AST/SGOT) 18 U/L (15-37) Alanine Aminotransferase (ALT/SGPT) 41 U/L (12-78) Alkaline Phosphatase 92 U/L (46-116) C-Reactive Protein, Quantitative 5.5 mg/dL (0.00-0.90) Pro-B-Type Natriuretic Peptide 1457 pg/mL (0-125) Total Protein 7.6 G/DL (6.4-8.2) Albumin 2.7 G/DL (3.4-5.0) Globulin 4.9 g/dL Albumin/Globulin Ratio 0.6 (1.0-2.7) Vancomycin Level Trough 2.9 ug/mL (5.0-12.0) Test 08/08/20 23:24 08/09/20 04:39 08/09/20 05:45 08/09/20 23:03 POC Whole Blood Glucose 111 MG/DL (74-106) 114 MG/DL (74-106) 114 MG/DL (74-106) White Blood Count 16.3 K/UL (4.8-10.8) Red Blood Count 3.13 M/UL (4.20-5.40) Hemoglobin 8.7 G/DL (12.0-16.0) Hematocrit 27.4 % (37.0-47.0) Mean Corpuscular Volume 88 FL (80-99) Mean Corpuscular Hemoglobin 27.9 PG (27.0-31.0) Mean Corpuscular Hemoglobin Concent 31.8 G/DL (32.0-36.0) Red Cell Distribution Width 14.8 % (11.6-14.8) Platelet Count 329 K/UL (150-450) Mean Platelet Volume 8.5 FL (6.5-10.1) Neutrophils (%) (Auto) 83.6 % (45.0-75.0) Lymphocytes (%) (Auto) 10.4 % (20.0-45.0) Monocytes (%) (Auto) 4.7 % (1.0-10.0) Eosinophils (%) (Auto) 0.9 % (0.0-3.0) Basophils (%) (Auto) 0.4 % (0.0-2.0) Sodium Level 139 MMOL/L (136-145) Potassium Level 4.1 MMOL/L (3.5-5.1) Chloride Level 103 MMOL/L (98-107) Carbon Dioxide Level 28 MMOL/L (21-32) Anion Gap 8 mmol/L (5-15) Blood Urea Nitrogen 10 mg/dL (7-18) Creatinine 0.4 MG/DL (0.55-1.30) Estimat Glomerular Filtration Rate > 60 mL/min (>60) Glucose Level 114 MG/DL (74-106) Calcium Level 9.0 MG/DL (8.5-10.1) Test 08/10/20 05:02 POC Whole Blood Glucose 110 MG/DL (74-106) Height (Feet): 5 Height (Inches): 2.00 Weight (Pounds): 85 Objective Physical Exam Sp02 EP Interpretation: reviewed, normal General Appearance: no apparent distress, non-verbal Head: normocephalic, atraumatic ENT: hearing grossly normal, no angioedema Respiratory: chest non-tender, lungs clear, normal breath sounds,++bipap Cardiovascular: no edema, tachycardia Gastrointestinal: normal bowel sounds, non tender, soft, ++gt Rectal: deferred Musculoskeletal: normal inspection Neurologic: alert, motor strength/tone normal, no focal defects Psychiatric: mood/affect normal Skin: other - See RN skin exam. Lymphatic: no adenopathy Gu: valderrama+++ Nate Begum MD Aug 10, 2020 07:42
[2020-08-10 08:00] VITALS: BP 120/86
--- NOTE | 2020-08-10 08:14 | NUR ---
RADIOLOGY DEPT., CHEST X-RAY DONE. P.DYE
[2020-08-10 08:50] LABS: HEMATOCRIT 26.5 % (37.0-47.0); HEMOGLOBIN 8.4 G/DL (12.0-16.0); MEAN CORPUSCULAR VOLUME 88 FL (80-99); PLATELET COUNT 388 K/UL (150-450); RED BLOOD COUNT 3.02 M/UL (4.20-5.40); RED CELL DISTRIBUTION WIDTH 15.6 % (11.6-14.8); WHITE BLOOD COUNT 18.7 K/UL (4.8-10.8)
[2020-08-10] MEDS: Vancomycin 750 MG in NS 275 ML IVPB SCH (08:57)
[2020-08-10] MEDS: levETIRAcetam 500mg/5ml Liquid GT SCH ×2 (08:57→20:57)
[2020-08-10] MEDS: Pantoprazole Inj IVP SCH ×2 (08:57→20:57)
[2020-08-10] MEDS: Heparin 5000 units/ml inj SUBQ SCH ×2 (08:58→20:58)
[2020-08-10] MEDS: Spironolactone 25mg tab GT SCH (08:58)
[2020-08-10] MEDS: Carvedilol 6.25mg Tab GT SCH ×2 (08:59→20:58)
--- NOTE | 2020-08-10 09:42 | NUR ---
NURSE NOTES: Received report from DURAN Patricio. Patient in bed resting, no active s/s cardiac, respiratory distress noticed at this time. Patient on room air , O2 sat 97%, GT feeding on Glucerna 1.2 @ 50ml/h, patent, intact. IV on left hand 20G, right EJ 20g, patent, intact. IVF running as prescribed rate @75ml/h. Bed in lowest position, side rails upx3, call light within reach, bed alarm on, Will continue to monitor. Gallardo Catheter draining well to gravity. SR with HR 99. Bed in lowest position, side rails up and padded x3, call light within reach, bed alarm on, Will continue to monitor.
[2020-08-10] MEDS: Dakin's 0.125% Soln (Quarter Strength) 16oz TOPIC SCH (10:26)
--- NOTE | 2020-08-10 10:32 | Infectious Diseases Prog Note ---
Assessment/Plan 69yo F with: Acute hypoxic resp failure requiring BiPAP, improved Afebrile Leukocytosis to 30, improving Pneumonia UTI Recent COVID dx 07/20/2008/05 BCx NTD UA 30-40 WBC, UCx >100k E.coli and P.mirabilis (both terrazas-S) Resp cx +MRSA (S-bactrim, doxy) COVID neg CXR: Left infrahilar and basilar infiltrate, likely pneumonia. Questionable infiltrates on the right as well. MRSA nares positive on prior admission 08/08 CXR: 1. Interval mild improvement in the left infrahilar opacity. This may represent atelectasis versus pneumonia. 2. Persistent bilateral prominent interstitial markings. This is nonspecific and may represent a mild bronchitis or pneumonitis. Recent h/o COVID pneumonia 07/20/20 Stable resp status, on baseline 3L NC 07/08 COVID rapid and PCR neg 07/20 COVID PCR positive Sepsis Leukocytosis to 21 Afebrile but with fever at [facility] record press tender Lymphopenia Hypoxic w/ NC O2 requirement, r/o PNA 07/08 BCx NTD UA+, UCx <10k GNR COVID rapid test neg, PCR neg CXR: No acute process 07/14 UCx +yeast (colonizer) +RLE DVT on US 07/09 Elevated LFTs 67 / 120 Abd TTP 06/29 Abd US wnl Acute hep panel neg Cr 0.5 HIV screen neg PMH: DM CHF Dementia SNF resident Plan: Stop CTX 1g IV daily #3/5 (abx d #5/7) to cover for UTI Restart Zosyn #1 given persistent leukocytosis (abx d#6) Cont vanco IV #6/14 for MRSA pneumonia, on discharge can transition to oral linezolid 600mg PO BID to complete rest of course, end date 08/18 Trend WBC - improving slowly 08/10 SP CTX #3 08/07 SP Zosyn #2 07/17 SP Zosyn #7 07/10 SP CTX #2 Monitor CBC/CMP Monitor temp curve, hemodynamics Monitor resp status D/w RN Thank you for this consult. [facility] will continue to follow. Subjective Allergies: Coded Allergies: ERYTHROMYCIN BASE (Verified Allergy, Unknown, 11/12/16) AF Satting 100% on RA WBC 18, stable but not improving Objective Last 24 Hour Vital Signs Date Time Temp Pulse Resp B/P (MAP) Pulse Ox O2 Delivery O2 Flow Rate FiO2 08/10/20 08:59 100 120/86 08/10/20 08:00 97.3 100 20 120/86 (97) 100 08/10/20 08:00 100 08/10/20 08:00 Room Air 08/10/20 04:00 97.5 96 20 118/78 (91) 97 08/10/20 04:00 98 08/10/20 04:00 Room Air 08/10/20 00:00 Room Air 08/10/20 00:00 97.3 89 23 125/78 (94) 96 08/10/20 00:00 90 08/09/20 20:06 83 128/65 08/09/20 20:00 89 08/09/20 20:00 97.7 83 21 128/65 (86) 97 08/09/20 20:00 Room Air 08/09/20 19:36 96 Room Air 08/09/20 16:00 Room Air 08/09/20 16:00 98.1 88 20 93/73 (80) 97 08/09/20 15:32 99 08/09/20 12:00 Room Air 08/09/20 12:00 98.0 91 18 127/72 (90) 96 08/09/20 11:40 92 Height (Feet): 5 Height (Inches): 2.00 Weight (Pounds): 85 Gen: NAD in bed HEENT: NCAT CV: RRR Pulm: CTAB Abd: Soft, NTND Ext: No c/c/e Neuro: Awake but not interactive Laboratory Tests Test 08/09/20 23:03 08/10/20 05:02 08/10/20 07:35 POC Whole Blood Glucose 114 MG/DL (74-106) H 110 MG/DL (74-106) H White Blood Count 18.7 K/UL (4.8-10.8) H Red Blood Count 3.02 M/UL (4.20-5.40) L Hemoglobin 8.4 G/DL (12.0-16.0) L Hematocrit 26.5 % (37.0-47.0) L Mean Corpuscular Volume 88 FL (80-99) Mean Corpuscular Hemoglobin 27.9 PG (27.0-31.0) Mean Corpuscular Hemoglobin Concent 31.8 G/DL (32.0-36.0) L Red Cell Distribution Width 15.6 % (11.6-14.8) H Platelet Count 388 K/UL (150-450) Mean Platelet Volume 7.5 FL (6.5-10.1) Neutrophils (%) (Auto) % (45.0-75.0) Lymphocytes (%) (Auto) % (20.0-45.0) Monocytes (%) (Auto) % (1.0-10.0) Eosinophils (%) (Auto) % (0.0-3.0) Basophils (%) (Auto) % (0.0-2.0) Differential Total Cells Counted 100 Neutrophils % (Manual) 86 % (45-75) H Lymphocytes % (Manual) 8 % (20-45) L Monocytes % (Manual) 4 % (1-10) Eosinophils % (Manual) 2 % (0-3) Basophils % (Manual) 0 % (0-2) Band Neutrophils 0 % (0-8) Platelet Estimate Adequate Platelet Morphology Normal Polychromasia 1+ Hypochromasia 1+ Anisocytosis 1+ Vancomycin Level Trough 10.4 ug/mL (5.0-12.0) Current Medications Medications (Trade) Dose Ordered Sig/Alvarado Route PRN Reason Start Time Stop Time Status Last Admin Dose Admin Acetaminophen (Tylenol) 650 mg Q4H PRN GT Mild Pain (Pain Scale 1-3) 08/05/20 11:30 09/04/20 11:29 Acetaminophen (Tylenol) 650 mg Q4H PRN GT TEMP > 100.5 08/05/20 11:45 09/04/20 11:44 Carvedilol (Coreg) 6.25 mg EVERY 12 HOURS GT 08/08/20 21:00 09/07/20 20:59 08/10/20 08:59 Ceftriaxone Sodium 1 gm/ Dextrose 55 ml @ 110 mls/hr Q24H IVPB 08/07/20 13:00 08/14/20 12:59 08/09/20 13:32 Dextrose (Dextrose 50%) 25 ml Q30M PRN IV Hypoglycemia 08/06/20 12:00 11/04/20 11:59 Dextrose (Dextrose 50%) 50 ml Q30M PRN IV Hypoglycemia 08/06/20 12:00 11/04/20 11:59 Heparin Sodium (Porcine) (Heparin 5000 units/ml) 5,000 units EVERY 12 HOURS SUBQ 08/05/20 21:00 09/19/20 20:59 08/10/20 08:58 Insulin Aspart (NovoLOG) Q6HR SUBQ 08/06/20 18:00 11/04/20 17:59 Levetiracetam (Keppra) 500 mg Q12HR GT 08/05/20 21:00 09/04/20 20:59 08/10/20 08:57 Midodrine (Pro-Amatine) 10 mg Q8HR ORAL 08/06/20 14:00 11/04/20 13:59 08/10/20 05:07 Pantoprazole (Protonix) 40 mg Q12HR IVP 08/06/20 21:00 09/05/20 08:59 08/10/20 08:57 Sodium 1,000 ml @ 75 mls/hr [id number] IV 08/06/20 14:00 09/05/20 13:59 08/09/20 21:14 Sodium Hypochlorite (Dakin's Quarter Strength) 1 applic DAILY TOPIC 08/06/20 09:00 09/05/20 08:59 08/10/20 10:26 Spironolactone (Aldactone) 25 mg DAILY GT 08/09/20 09:00 09/08/20 08:59 08/10/20 08:58 Vancomycin HCl (Vanco pharmacy to dose) 1 ea DAILY PRN MISC . 08/05/20 14:00 09/04/20 13:59 Vancomycin HCl 750 mg/Sodium Chloride 275 ml @ 183.333 mls/hr Q12H IVPB 08/08/20 20:00 08/13/20 19:59 08/10/20 08:57 Beth Marsh M.D. Aug 10, 2020 10:32
[2020-08-10] MEDS: 1/2NS w/KCl 20mEq 1000ml 1,000 ML IV SCH (11:26)
[2020-08-10 12:00] VITALS: BP 120/61
[2020-08-10] MEDS: Piperacillin/Tazobactam 3.375 GM in NS 110 ML IVPB SCH ×2 (12:01→22:18)
--- NOTE | 2020-08-10 12:54 | Nephrology Progress Note ---
Assessment/Plan Problem List: (1) Electrolyte imbalance (2) Sepsis (3) UTI (urinary tract infection) (4) Dehydration (5) Anemia (6) Hyperglycemia (7) Seizure disorder Assessment Patient is admitted with sepsis, leukocytosis, hypoxia Patient has evidence of UTI Electrolyte imbalances, hypokalemia Hypotension, blood pressure hovering 90 systolic Anemia Hyperglycemia Seizure disorder Plan August 10: Labs reviewed. Renal parameters stable. Continue her current management. August 09: Labs reviewed. Renal parameters and electrolytes stable. Continue per consultants. August 08: Labs reviewed. Renal parameters electrolytes stable. Continue to monitor electrolytes. Continue per consultants. August 07: No CHEM panel drawn today. K-Phos given. Medication list reviewed. Check labs tomorrow. Continue per consultants. IV changed to half-normal saline Start Midodrin Potassium supplement Monitor renal parameters Anemia work-up Per orders Subjective ROS Limited/Unobtainable: Yes Objective Objective Last 24 Hour Vital Signs Date Time Temp Pulse Resp B/P (MAP) Pulse Ox O2 Delivery O2 Flow Rate FiO2 08/10/20 12:00 93 08/10/20 08:59 100 120/86 08/10/20 08:30 99 Room Air 08/10/20 08:00 97.3 100 20 120/86 (97) 100 08/10/20 08:00 100 08/10/20 08:00 Room Air 08/10/20 04:00 97.5 96 20 118/78 (91) 97 08/10/20 04:00 98 08/10/20 04:00 Room Air 08/10/20 00:00 Room Air 08/10/20 00:00 97.3 89 23 125/78 (94) 96 08/10/20 00:00 90 08/09/20 20:06 83 128/65 08/09/20 20:00 89 08/09/20 20:00 97.7 83 21 128/65 (86) 97 08/09/20 20:00 Room Air 08/09/20 19:36 96 Room Air 08/09/20 16:00 Room Air 08/09/20 16:00 98.1 88 20 93/73 (80) 97 08/09/20 15:32 99 Intake and Output 08/09/20 08/10/20 19:00 07:00 Intake Total 1800 ml 1475 ml Output Total 1200 ml 1800 ml Balance 600 ml -325 ml Intake Free Water 300 ml 100 ml IV Total 900 ml 825 ml Tube Feeding 600 ml 550 ml Output Urine Total 1200 ml 1800 ml Current Medications Medications (Trade) Dose Ordered Sig/Alvarado Route PRN Reason Start Time Stop Time Status Last Admin Dose Admin Acetaminophen (Tylenol) 650 mg Q4H PRN GT Mild Pain (Pain Scale 1-3) 08/05/20 11:30 09/04/20 11:29 Acetaminophen (Tylenol) 650 mg Q4H PRN GT TEMP > 100.5 08/05/20 11:45 09/04/20 11:44 Carvedilol (Coreg) 6.25 mg EVERY 12 HOURS GT 08/08/20 21:00 09/07/20 20:59 08/10/20 08:59 Dextrose (Dextrose 50%) 25 ml Q30M PRN IV Hypoglycemia 08/06/20 12:00 11/04/20 11:59 Dextrose (Dextrose 50%) 50 ml Q30M PRN IV Hypoglycemia 08/06/20 12:00 11/04/20 11:59 Heparin Sodium (Porcine) (Heparin 5000 units/ml) 5,000 units EVERY 12 HOURS SUBQ 08/05/20 21:00 09/19/20 20:59 08/10/20 08:58 Insulin Aspart (NovoLOG) Q6HR SUBQ 08/06/20 18:00 11/04/20 17:59 Levetiracetam (Keppra) 500 mg Q12HR GT 08/05/20 21:00 09/04/20 20:59 08/10/20 08:57 Midodrine (Pro-Amatine) 10 mg Q8HR ORAL 08/06/20 14:00 11/04/20 13:59 08/10/20 05:07 Pantoprazole (Protonix) 40 mg Q12HR IVP 08/06/20 21:00 09/05/20 08:59 08/10/20 08:57 Piperacillin Sod/ Tazobactam Sod 3.375 gm/Sodium Chloride 110 ml @ 27.5 mls/hr EVERY 8 HOURS IVPB 08/10/20 11:30 08/15/20 11:29 08/10/20 12:01 Sodium 1,000 ml @ 75 mls/hr [id number] IV 08/06/20 14:00 09/05/20 13:59 08/10/20 11:26 Sodium Hypochlorite (Dakin's Quarter Strength) 1 applic DAILY TOPIC 08/06/20 09:00 09/05/20 08:59 08/10/20 10:26 Spironolactone (Aldactone) 25 mg DAILY GT 08/09/20 09:00 09/08/20 08:59 08/10/20 08:58 Vancomycin HCl (Vanco pharmacy to dose) 1 ea DAILY PRN MISC . 08/05/20 14:00 09/04/20 13:59 Vancomycin HCl 1 gm/Sodium Chloride 275 ml @ 183.708 mls/hr Q12H IVPB 08/10/20 20:00 08/15/20 19:59 Laboratory Tests 08/09/20 23:03: POC Whole Blood Glucose 114H 08/10/20 05:02: POC Whole Blood Glucose 110H 08/10/20 07:35: White Blood Count 18.7H, Red Blood Count 3.02L, Hemoglobin 8.4L, Hematocrit 26.5L, Mean Corpuscular Volume 88, Mean Corpuscular Hemoglobin 27.9, Mean Corpuscular Hemoglobin Concent 31.8L, Red Cell Distribution Width 15.6H, Platelet Count 388, Mean Platelet Volume 7.5, Neutrophils (%) (Auto) , Lymphocytes (%) (Auto) , Monocytes (%) (Auto) , Eosinophils (%) (Auto) , B asophils (%) (Auto) , Differential Total Cells Counted 100, Neutrophils % (Manual) 86H, Lymphocytes % (Manual) 8L, Monocytes % (Manual) 4, Eosinophils % (Manual) 2, Basophils % (Manual) 0, Band Neutrophils 0, Platelet Estimate Adequate, Platelet Morphology Normal, Polychromasia 1+, Hypochromasia 1+, Anisocytosis 1+, Vancomycin Level Trough 10.4 08/10/20 11:28: POC Whole Blood Glucose 111H Height (Feet): 5 Height (Inches): 2.00 Weight (Pounds): 85 General Appearance: no apparent distress EENT: other - On cannula Cardiovascular: tachycardia Respiratory/Chest: decreased breath sounds Abdomen: distended Gabriele Honeycutt MD Aug 10, 2020 12:54
--- NOTE | 2020-08-10 13:10 | Diagnostic Imaging Report ---
Indication: Cough Technique: One view of the chest Comparison: 08/08/2020 Findings: Somewhat less optimal inspiration currently, resulting in some crowding of the bronchovascular markings. Left basilar opacity is likely a nipple shadow. Generalized interstitial prominence is unchanged. Impression: Probably unchanged, allowing for differences in degree of inspiration. Findings as noted
--- NOTE | 2020-08-10 13:15 | Surgery Progress Note ---
Surgery Progress Note Subjective Additional Comments leukocytosis ill appearing no n/v dressings saturated Objective Last 24 Hour Vital Signs Date Time Temp Pulse Resp B/P (MAP) Pulse Ox O2 Delivery O2 Flow Rate FiO2 08/10/20 12:00 98.1 92 22 120/61 (80) 97 08/10/20 12:00 93 08/10/20 08:59 100 120/86 08/10/20 08:30 99 Room Air 08/10/20 08:00 97.3 100 20 120/86 (97) 100 08/10/20 08:00 100 08/10/20 08:00 Room Air 08/10/20 04:00 97.5 96 20 118/78 (91) 97 08/10/20 04:00 98 08/10/20 04:00 Room Air 08/10/20 00:00 Room Air 08/10/20 00:00 97.3 89 23 125/78 (94) 96 08/10/20 00:00 90 08/09/20 20:06 83 128/65 08/09/20 20:00 89 08/09/20 20:00 97.7 83 21 128/65 (86) 97 08/09/20 20:00 Room Air 08/09/20 19:36 96 Room Air 08/09/20 16:00 Room Air 08/09/20 16:00 98.1 88 20 93/73 (80) 97 08/09/20 15:32 99 I&O Intake and Output 08/09/20 08/10/20 19:00 07:00 Intake Total 1800 ml 1475 ml Output Total 1200 ml 1800 ml Balance 600 ml -325 ml Intake Free Water 300 ml 100 ml IV Total 900 ml 825 ml Tube Feeding 600 ml 550 ml Output Urine Total 1200 ml 1800 ml Dressing: saturated Cardiovascular: RSR Respiratory: decreased breath sounds Abdomen: non-tender, present bowel sounds, non-distended Extremities: no edema, no tenderness, no cyanosis Laboratory Tests Test 08/09/20 23:03 08/10/20 05:02 08/10/20 07:35 08/10/20 11:28 POC Whole Blood Glucose 114 MG/DL (74-106) H 110 MG/DL (74-106) H 111 MG/DL (74-106) H White Blood Count 18.7 K/UL (4.8-10.8) H Red Blood Count 3.02 M/UL (4.20-5.40) L Hemoglobin 8.4 G/DL (12.0-16.0) L Hematocrit 26.5 % (37.0-47.0) L Mean Corpuscular Volume 88 FL (80-99) Mean Corpuscular Hemoglobin 27.9 PG (27.0-31.0) Mean Corpuscular Hemoglobin Concent 31.8 G/DL (32.0-36.0) L Red Cell Distribution Width 15.6 % (11.6-14.8) H Platelet Count 388 K/UL (150-450) Mean Platelet Volume 7.5 FL (6.5-10.1) Neutrophils (%) (Auto) % (45.0-75.0) Lymphocytes (%) (Auto) % (20.0-45.0) Monocytes (%) (Auto) % (1.0-10.0) Eosinophils (%) (Auto) % (0.0-3.0) Basophils (%) (Auto) % (0.0-2.0) Differential Total Cells Counted 100 Neutrophils % (Manual) 86 % (45-75) H Lymphocytes % (Manual) 8 % (20-45) L Monocytes % (Manual) 4 % (1-10) Eosinophils % (Manual) 2 % (0-3) Basophils % (Manual) 0 % (0-2) Band Neutrophils 0 % (0-8) Platelet Estimate Adequate Platelet Morphology Normal Polychromasia 1+ Hypochromasia 1+ Anisocytosis 1+ Vancomycin Level Trough 10.4 ug/mL (5.0-12.0) Plan Problems: (1) Leukocytosis Assessment & Plan: (1) Fever (2) Leukocytosis Assessment & Plan: on abx id input appreciated wounds not infected nutrition (3) Tachycardia (4) Decubitus skin ulcer (5) Pyelonephritis (6) Malnutrition (7) Sepsis Assessment & Plan: ill appearing poor skin turgor leukocytosis anemia h/h low trending prbc prn Needs based on underweight, DM 35.5kg 30-40 kcals/kg 5189-3575 total kcals 1.25-2 g protein/kg 44-71 g total protein 25-35ml/kcal mL/kg 888-1243 total fluid mLs NUTRITION DIAGNOSIS: Swallowing difficulty R/T dysphagia as evidenced by pt is Gtube dependent. ENTERAL NUTRITION RECOMMENDATIONS: Glucerna 1.2 @50ml x24 hrs to provide 1200ml, 1440 kcal, 72g pro, 966ml free H2O - As able rec carb control formula for h/o DM. - Start @30ml/hr for 6 hrs, advance as tolerated 10ml/hr q4-6 hrs to goal. - Flush per MD/ HOB over 30 degrees ADDITIONAL RECOMMENDATIONS: - Per SNF: 5'3" and 78lbs/35.45kg. - Check lytes daily, replete as needed - A1c for eval of glycemic control - Wound care: advanced per RN, f/up with WC RN. Add LINA BID w/ GT, Vit C 250mg BID Assessment & Plan: leukocytosis lactic acidosis malnutrition underweight bmi 13 micro noted on abx as per ID cont abx wounds unlikely etiology will follow with local care and evaluation to ensure improving thank you There is a slight degree of image degradation due to motion artifact. The right upper lobe is largely clear following may be some interstitial septal thickening in the apex. The right middle lobe is clear. The right lower lobe demonstrates some atelectasis at the right lung base. There is also a focal 6 mm nodular opacity, image 50 series 5. There is a vague mosaic attenuation pattern. Left upper lobe demonstrates scattered areas of mosaic attenuation superiorly image 10 of series 5 demonstrates a 3 mm left upper lobe nodule.. Irregular consolidative opacities are seen in the inferior left upper lobe. More extensive consolidation in a patchy and irregular distribution are seen in the left lower lobe. There is a small left pleural effusion. The heart is upper limits of normal in size. The ascending thoracic aorta is mildly ectatic. No mediastinal or hilar mass or adenopathy. Unremarkable. No axillary or chest wall mass or adenopathy demonstrated. The bones are unremarkable except for minimal degenerative spondylosis changes and slight anterior bowing of the sternum. The included lung bases demonstrate a gastrostomy which appears well-positioned. There is trace ascites Impression: Opacities in the left lower lobe and also to a lesser extent in the left upper lobe and minimally in the right lower lobe. Appearance is consistent with consolidation rather than mass. Most likely represents pneumonia, appearance nonspecific as regards etiology. Patchy pulmonary edema also possible, among other possibilities Small left pleural effusion Bilateral small nodules, as described. No further follow-up necessary if there are no risk factors for lung carcinoma. There are significant risk factors, then short interval follow-up CT in 6-12 months is recommended Trace ascites (2) Fever (3) Decubitus skin ulcer Assessment & Plan: Emaciated pt whom [presented on admission with Contractures, GT and Multiple Pressure Injuries. DTPI Thoracic Spine(L)1.4cm x (W)0.9cm. Base of Pressure Injury is indurated, Pupuric with surrounding maroon borders. Full Thickness stage 4 Sacral Pressure Injury(L)4.5cm x (W)3.7cm x(D)2.5cm, Undermined Borders clockwise 12-6 by 3.1cm@12o'clock. Base of wound is arleen. Bone is palpable at base of wound. Scattered slough along loose edges. Small amt serous exudate noted. Wound is malodorous. Non- Blanching erythema without induration periwound. Full thickness stage 4 Pressure Injury L trochanter(L)6.5cm x (W)9cm x 1.4cm. Undermining clockwise 7-5 by 2.6cm @12o'clock. Base of wound 60% fibrinous slough, 40% moist and pink. Bone exposure at base of wound. Edges are detached with scattered slough along borders. Small amt seropurulent exudate noted. Wound is malodorous. Periwound is maroon and indurated. Unstageable Pressure Injury R heel (L)0.6cm x (W)0.6cm.Stable dry eschar with attached edges. Surrounding Heel is boggy with Non-Blanchable erythema. DTPI lateral R Malleolus (L)1.5cm x (W)2.2cm. Base of wound is maroon and fluctuant. No evidence of further skin breakdown periwound. Unstageable Pressure Injury Dorsal R 1st metatarsal(L)0.8cm x (W)1.2cm. Dry eschar with marginal erythema along adherent borders Periwound is erythematous without fluctuance or induration. Non-Blanchable erythema with fluctuance distal/lateral L foot (L)1cm x (W)1cm. Unstageable Pressure Injury L Hallux (L)2.2cm x (W)1.5cm. Dry eschar with surrounding non-blanchable erythema.with fluctuance. Unstageable Pressure Injury Achilles L foot (L)1.5cm x (W)1.5 cm. Stable dry eschar with surrounding Non-blanchable erythema extending into plantar aspect of L heel. L heel is boggy.. Tx.Plan: Apply Cavilon Skin Barrier to Thoracic DTPI . Cover with Optifoam drsg. Change every 7 days and prn. Cleanse Sacral Wound with Dakin's 0.25% Nicki. Loosely pack wound with Dakin's moistened Kerlix. Apply Triad Paste periwound. Cover with Optifoam drsg Daily and prn. Cleanse L trochanteric Wound with Dakin's 0.25% nicki. Loosely pack with Dakin's moistened Kerlix. Apply Triad Paste Periwound. Cover with Optifoam drsg Daily and prn. Apply Betadine to Necrotic areas of L Foot . Cover each site with Optifoam drsg. Change every 3 days and prn. Apply Betadine to To Pressure Injuires R Foot. Cover each site with Optifoam drsgs. Change every 3 days and prn. Reposition at least every 2hours or as tolerated. Off-load heels with Pillow. APM/SOLOMON Mattress overlay. (4) Sepsis (5) Malnutrition Chao Ovalle Aug 10, 2020 13:15
--- NOTE | 2020-08-10 13:47 | NUR ---
CASE MANAGEMENT:REVIEW 08/10/20 SI: RESPIRATORY FAILURE. PNA. UTI 98.1 93 22 120/61 97% ON RA WBC+18.7 H/H-8.4/26.5 IS: IV VANCOMYCIN Q12 IV ZOSYN Q8HRS IVF@75/HR ALDACTONE GT QD COREG GT Q12 IV PROTONIX Q12 MIDODRINE PO Q8HRS KEPPRA GT Q12 HEPARIN SQ Q12 : ICU...TRANSFER TO STEP DOWN UNIT DCP: FROM [facility]
[2020-08-10 16:00] VITALS: BP 107/76
--- NOTE | 2020-08-10 19:09 | NUR ---
NURSE NOTES: Received report from DURAN Buckley. Pt is asleep, arousable to shaking, aphasic. No signs of acute distress. SR on equipment monitor phototypesetting. SpO2 96% on RA. GT intact, dry, 0ml residual. Gallardo intact and draining well to gravity. R EJ 18 running 1/2 NS KCl 20mEQ at 75cc/hr. L hand 20g TKO. Skin issues, allergy status, safety issues, and isolation status noted and reinforced. HOB elevated, side rails x3 and padded, call light within reach, bed alarmed, locked, and in lowest position. Will continue plan of care. Will continue to monitor.
--- NOTE | 2020-08-10 19:12 | NUR ---
NURSE HAND-OFF REPORT: Important Events on Shift: NA Patient Status: stable Diet: Glucerna 1.2 @ 50ml/h Pending Orders: na Pending Results/Labs:na Pending notification:na Latest Vital Signs: Temperature 98.1 , Pulse 90 , B/P 107 /76 , Respiratory Rate 20 , O2 SAT 97 , Bi-pap, O2 Flow Rate 3.0 . Vital Sign Comment: stable EKG Rhythm: Sinus Rhythm Rhythm change?: N Notified?: Y -Dr Rima MENDEZ Response: No New Orders Received Latest Huggins Fall Score: 50 Fall Risk: High Risk Safety Measures: Call light Within Reach, Bed Alarm Zone 1, Side Rails Side Rails x3, Bed position Low and Locked. Fall Precautions: Yellow Socks Yellow Gown Door Sign Patient Fall Education Report given to DURAN Olea.
[2020-08-10] MEDS: Vancomycin 1 GM in NS 275 ML IVPB SCH (19:55)
[2020-08-10 20:00] VITALS: BP 118/67
[2020-08-11] VITALS: BP 110/63
--- NOTE | 2020-08-11 | General Progress Note ---
Subjective Constitutional: Reports: no symptoms HEENT: Reports: no symptoms Cardiovascular: Reports: no symptoms Respiratory: Reports: no symptoms Gastrointestinal/Abdominal: Reports: no symptoms Genitourinary: Reports: no symptoms Neurologic/Psychiatric: Reports: no symptoms Endocrine: Reports: no symptoms Hematologic/Lymphatic: Reports: no symptoms Allergies: Coded Allergies: ERYTHROMYCIN BASE (Verified Allergy, Unknown, 11/12/16) Objective Last 24 Hour Vital Signs Date Time Temp Pulse Resp B/P (MAP) Pulse Ox O2 Delivery O2 Flow Rate FiO2 08/10/20 20:58 93 118/67 08/10/20 20:00 Room Air 08/10/20 20:00 93 08/10/20 20:00 97.2 95 20 118/67 (84) 95 08/10/20 19:35 96 Room Air 21 08/10/20 19:35 92 20 96 Room Air 08/10/20 16:00 98.1 90 20 107/76 (86) 97 08/10/20 16:00 90 08/10/20 16:00 Room Air 08/10/20 12:00 98.1 92 22 120/61 (80) 97 08/10/20 12:00 Room Air 08/10/20 12:00 93 08/10/20 08:59 100 120/86 08/10/20 08:30 99 Room Air 08/10/20 08:00 97.3 100 20 120/86 (97) 100 08/10/20 08:00 100 08/10/20 08:00 Room Air 08/10/20 04:00 97.5 96 20 118/78 (91) 97 08/10/20 04:00 98 08/10/20 04:00 Room Air 08/10/20 00:00 Room Air 08/10/20 00:00 97.3 89 23 125/78 (94) 96 08/10/20 00:00 90 Intake and Output 08/09/20 08/10/20 19:00 07:00 Intake Total 1800 ml 1600 ml Output Total 1200 ml 1800 ml Balance 600 ml -200 ml Intake Free Water 300 ml 100 ml IV Total 900 ml 900 ml Tube Feeding 600 ml 600 ml Output Urine Total 1200 ml 1800 ml Laboratory Tests 08/10/20 05:02: POC Whole Blood Glucose 110H 08/10/20 07:35: White Blood Count 18.7H, Red Blood Count 3.02L, Hemoglobin 8.4L, Hematocrit 26.5L, Mean Corpuscular Volume 88, Mean Corpuscular Hemoglobin 27.9, Mean Corpuscular Hemoglobin Concent 31.8L, Red Cell Distribution Width 15.6H, Platelet Count 388, Mean Platelet Volume 7.5, Neutrophils (%) (Auto) , Lymphocytes (%) (Auto) , Monocytes (%) (Auto) , Eosinophils (%) (Auto) , Basophils (%) (Auto) , Differential Total Cells Counted 100, Neutrophils % (Manual) 86H, Lymphocytes % (Manual) 8L, Monocytes % (Manual) 4, Eosinophils % (Manual) 2, Basophils % (Manual) 0, Band Neutrophils 0, Platelet Estimate Adequate, Platelet Morphology Normal, Polychromasia 1+, Hypochromasia 1+, Anisocytosis 1+, Vancomycin Level Trough 10.4 08/10/20 11:28: POC Whole Blood Glucose 111H 08/10/20 18:20: POC Whole Blood Glucose 122H 08/10/20 23:38: POC Whole Blood Glucose 115H Height (Feet): 5 Height (Inches): 2.00 Weight (Pounds): 85 General Appearance: alert, lethargic EENT: normal ENT inspection Neck: supple Cardiovascular: normal rate, regular rhythm, no gallop/murmur, no JVD Respiratory/Chest: decreased breath sounds, rhonchi - bilaterally Abdomen: normal bowel sounds, non tender, soft, no organomegaly, no mass Extremities: non-tender Neurologic: alert, aphasia Skin: warm/dry Assessment/Plan Status Narrative Awake afebrile hemodynamically stable no eye contact but respond to verbal audio and tactile stimuli her case appeared to be more complex that initially thought at least 2 source of infection is different organisms and WBC is progressively increased over the last 48 hours responding to ceftriaxone same with urinary infection current evidence that the patient have MRSA retrocardiac pneumonia patient currently is on vancomycin and Zosyn BC 18 clinically she seems unchanged from day 1 that she does not need the BiPAP machine with laboratory tests will be done in a.m. Gale Leija MD, MD Aug 11, 2020 00:00
--- NOTE | 2020-08-11 00:44 | NUR ---
NURSE NOTES: Pt is asleep, SpO2 95% on RA and bus monitor shows SR. No acute distress noted. No signs of pain noted. Will continue to monitor.
[2020-08-11] MEDS: 1/2NS w/KCl 20mEq 1000ml 1,000 ML IV SCH ×2 (00:48→15:15)
--- NOTE | 2020-08-11 03:07 | NUR ---
NURSE NOTES: Cleaned pt. No BM noted. Sacral and trochanter wounds redressed. Other dressings dry and intact. Performed oral care. Changed linens and gown. Pt tolerated well. Will continue plan of care. Will continue to monitor.
[2020-08-11 04:00] VITALS: BP 113/65
[2020-08-11] MEDS: Midodrine 10mg tab ORAL SCH ×3 (05:12→21:26)
[2020-08-11] MEDS: Piperacillin/Tazobactam 3.375 GM in NS 110 ML IVPB SCH ×3 (05:12→22:43)
[2020-08-11 05:26] LABS: HEMATOCRIT 25.2 % (37.0-47.0); HEMOGLOBIN 7.9 G/DL (12.0-16.0); MEAN CORPUSCULAR VOLUME 89 FL (80-99); PLATELET COUNT 405 K/UL (150-450); RED BLOOD COUNT 2.84 M/UL (4.20-5.40); RED CELL DISTRIBUTION WIDTH 15.9 % (11.6-14.8); WHITE BLOOD COUNT 15.4 K/UL (4.8-10.8)
[2020-08-11] MEDS: NovoLOG Insulin Flexpen SUBQ SCH ×4 (05:39→18:00)
[2020-08-11 06:05] LABS: ANION GAP 8 mmol/L (5-15); BLOOD UREA NITROGEN 11 mg/dL (7-18); CALCIUM 8.8 MG/DL (8.5-10.1); CARBON DIOXIDE 26 MMOL/L (21-32); CHLORIDE 104 MMOL/L (98-107); CREATININE 0.4 MG/DL (0.55-1.30); POTASSIUM 4.5 MMOL/L (3.5-5.1); SODIUM 138 MMOL/L (136-145)
--- NOTE | 2020-08-11 06:58 | Hematology/Onc Progress Note ---
Assessment/Plan Assessment/Plan Assessment and Recs # Leukocytosis with likely sepsis due to pna --> ON ABX vanc/zosyn-->vanc/ctx --> is on ivfs --> abx as per ID --> imaging noted --> wbc 28-->16->15 # Right lower extremity dvt --> h/h to low for anticoag --> consider repeat lower duplex at this time-->neg dvt 08/06 --> consider ivcf # Anemia due to chronic disease --> hgb 10-->8.2-->7.4 # Respiratory distress --> r/o covid --> per pulm # Dysphagia s/p peg # CVA hx # HL --> lipitor and asa # Tachycardia --> ivfs should improve # Dvt ppx heparin sq Appreciate consultation and iraida Rn Subjective Genitourinary: Denies: no symptoms, burning, discharge, frequency, flank pain, hematuria, incontinence, pain, urgency, other Neurologic/Psychiatric: Denies: no symptoms, anxiety, depressed, emotional problems, headache, numbness, paresthesia, pre-existing deficit, seizure, tingling, tremors, weakness, other Allergies: Coded Allergies: ERYTHROMYCIN BASE (Verified Allergy, Unknown, 11/12/16) All Systems: reviewed and negative except above Subjective 08/09 asleep, on glucerna, meds noted, labs reviewed 2/1 labs reviewed, meds noted, no bleeding, iraida rn, on fluids 2/2 labs reviewed, meds noted, hgb 7.4, transfuse on prn basis Objective Objective Current Medications Medications (Trade) Dose Ordered Sig/Alvarado Route PRN Reason Start Time Stop Time Status Last Admin Dose Admin Acetaminophen (Tylenol) 650 mg Q4H PRN GT Mild Pain (Pain Scale 1-3) 08/05/20 11:30 09/04/20 11:29 Acetaminophen (Tylenol) 650 mg Q4H PRN GT TEMP > 100.5 08/05/20 11:45 09/04/20 11:44 Carvedilol (Coreg) 6.25 mg EVERY 12 HOURS GT 08/08/20 21:00 09/07/20 20:59 08/10/20 20:58 Dextrose (Dextrose 50%) 25 ml Q30M PRN IV Hypoglycemia 08/06/20 12:00 11/04/20 11:59 Dextrose (Dextrose 50%) 50 ml Q30M PRN IV Hypoglycemia 08/06/20 12:00 11/04/20 11:59 Heparin Sodium (Porcine) (Heparin 5000 units/ml) 5,000 units EVERY 12 HOURS SUBQ 08/05/20 21:00 09/19/20 20:59 08/10/20 20:58 Insulin Aspart (NovoLOG) Q6HR SUBQ 08/06/20 18:00 11/04/20 17:59 Levetiracetam (Keppra) 500 mg Q12HR GT 08/05/20 21:00 09/04/20 20:59 08/10/20 20:57 Midodrine (Pro-Amatine) 10 mg Q8HR ORAL 08/06/20 14:00 11/04/20 13:59 08/11/20 05:12 Pantoprazole (Protonix) 40 mg Q12HR IVP 08/06/20 21:00 09/05/20 08:59 08/10/20 20:57 Piperacillin Sod/ Tazobactam Sod 3.375 gm/Sodium Chloride 110 ml @ 27.5 mls/hr EVERY 8 HOURS IVPB 08/10/20 11:30 08/15/20 11:29 08/11/20 05:12 Sodium 1,000 ml @ 75 mls/hr [id number] IV 08/06/20 14:00 09/05/20 13:59 08/11/20 00:48 Sodium Hypochlorite (Dakin's Quarter Strength) 1 applic DAILY TOPIC 08/06/20 09:00 09/05/20 08:59 08/10/20 10:26 Spironolactone (Aldactone) 25 mg DAILY GT 08/09/20 09:00 09/08/20 08:59 08/10/20 08:58 Vancomycin HCl (Vanco pharmacy to dose) 1 ea DAILY PRN MISC . 08/05/20 14:00 09/04/20 13:59 Vancomycin HCl 1 gm/Sodium Chloride 275 ml @ 183.708 mls/hr Q12H IVPB 08/10/20 20:00 08/15/20 19:59 08/10/20 19:55 Last 24 Hour Vital Signs Date Time Temp Pulse Resp B/P (MAP) Pulse Ox O2 Delivery O2 Flow Rate FiO2 08/11/20 04:00 98 08/11/20 04:00 98.1 91 20 113/65 (81) 95 08/11/20 04:00 Room Air 08/11/20 00:00 97.7 88 20 110/63 (79) 96 08/11/20 00:00 Room Air 08/11/20 00:00 86 08/10/20 20:58 93 118/67 08/10/20 20:00 Room Air 08/10/20 20:00 93 08/10/20 20:00 97.2 95 20 118/67 (84) 95 08/10/20 19:35 96 Room Air 21 08/10/20 19:35 92 20 96 Room Air 08/10/20 16:00 98.1 90 20 107/76 (86) 97 08/10/20 16:00 90 08/10/20 16:00 Room Air 08/10/20 12:00 98.1 92 22 120/61 (80) 97 08/10/20 12:00 Room Air 08/10/20 12:00 93 08/10/20 08:59 100 120/86 08/10/20 08:30 99 Room Air 08/10/20 08:00 97.3 100 20 120/86 (97) 100 08/10/20 08:00 100 08/10/20 08:00 Room Air 08/10/20 04:00 97.5 96 20 118/78 (91) 97 08/10/20 04:00 98 08/10/20 04:00 Room Air 08/10/20 00:00 Room Air 08/10/20 00:00 97.3 89 23 125/78 (94) 96 08/10/20 00:00 90 08/09/20 20:06 83 128/65 08/09/20 20:00 89 08/09/20 20:00 97.7 83 21 128/65 (86) 97 08/09/20 20:00 Room Air 08/09/20 19:36 96 Room Air 08/09/20 16:00 Room Air 08/09/20 16:00 98.1 88 20 93/73 (80) 97 08/09/20 15:32 99 08/09/20 12:00 Room Air 08/09/20 12:00 98.0 91 18 127/72 (90) 96 08/09/20 11:40 92 08/09/20 08:46 90 125/81 08/09/20 08:30 99 Room Air 08/09/20 08:00 Room Air 08/09/20 08:00 96.6 105 21 137/72 (93) 99 08/09/20 07:42 81 Intake and Output 08/10/20 08/11/20 19:00 07:00 Intake Total 1515 ml 1550 ml Output Total 1300 ml 1800 ml Balance 215 ml -250 ml Intake Free Water 90 ml 200 ml IV Total 825 ml 750 ml Tube Feeding 600 ml 600 ml Output Urine Total 1300 ml 1800 ml Labs Test 08/08/20 07:00 08/08/20 12:09 08/08/20 17:33 08/08/20 23:24 White Blood Count 17.4 K/UL (4.8-10.8) Red Blood Count 3.23 M/UL (4.20-5.40) Hemoglobin 9.0 G/DL (12.0-16.0) Hematocrit 28.0 % (37.0-47.0) Mean Corpuscular Volume 87 FL (80-99) Mean Corpuscular Hemoglobin 27.7 PG (27.0-31.0) Mean Corpuscular Hemoglobin Concent 32.0 G/DL (32.0-36.0) Red Cell Distribution Width 14.9 % (11.6-14.8) Platelet Count 312 K/UL (150-450) Mean Platelet Volume 9.4 FL (6.5-10.1) Neutrophils (%) (Auto) % (45.0-75.0) Lymphocytes (%) (Auto) % (20.0-45.0) Monocytes (%) (Auto) % (1.0-10.0) Eosinophils (%) (Auto) % (0.0-3.0) Basophils (%) (Auto) % (0.0-2.0) Differential Total Cells Counted 100 Neutrophils % (Manual) 90 % (45-75) Lymphocytes % (Manual) 7 % (20-45) Monocytes % (Manual) 3 % (1-10) Eosinophils % (Manual) 0 % (0-3) Basophils % (Manual) 0 % (0-2) Band Neutrophils 0 % (0-8) Platelet Estimate Adequate Platelet Morphology Normal Hypochromasia 1+ Anisocytosis 1+ Sodium Level 135 MMOL/L (136-145) Potassium Level 3.5 MMOL/L (3.5-5.1) Chloride Level 99 MMOL/L (98-107) Carbon Dioxide Level 29 MMOL/L (21-32) Anion Gap 7 mmol/L (5-15) Blood Urea Nitrogen 8 mg/dL (7-18) Creatinine 0.4 MG/DL (0.55-1.30) Estimat Glomerular Filtration Rate > 60 mL/min (>60) Glucose Level 123 MG/DL (74-106) Calcium Level 9.0 MG/DL (8.5-10.1) Phosphorus Level 2.9 MG/DL (2.5-4.9) Magnesium Level 2.1 MG/DL (1.8-2.4) Total Bilirubin 0.4 MG/DL (0.2-1.0) Aspartate Amino Transf (AST/SGOT) 18 U/L (15-37) Alanine Aminotransferase (ALT/SGPT) 41 U/L (12-78) Alkaline Phosphatase 92 U/L (46-116) C-Reactive Protein, Quantitative 5.5 mg/dL (0.00-0.90) Pro-B-Type Natriuretic Peptide 1457 pg/mL (0-125) Total Protein 7.6 G/DL (6.4-8.2) Albumin 2.7 G/DL (3.4-5.0) Globulin 4.9 g/dL Albumin/Globulin Ratio 0.6 (1.0-2.7) Vancomycin Level Trough 2.9 ug/mL (5.0-12.0) POC Whole Blood Glucose 110 MG/DL (74-106) 102 MG/DL (74-106) 111 MG/DL (74-106) Test 08/09/20 04:39 08/09/20 05:45 08/09/20 23:03 08/10/20 05:02 White Blood Count 16.3 K/UL (4.8-10.8) Red Blood Count 3.13 M/UL (4.20-5.40) Hemoglobin 8.7 G/DL (12.0-16.0) Hematocrit 27.4 % (37.0-47.0) Mean Corpuscular Volume 88 FL (80-99) Mean Corpuscular Hemoglobin 27.9 PG (27.0-31.0) Mean Corpuscular Hemoglobin Concent 31.8 G/DL (32.0-36.0) Red Cell Distribution Width 14.8 % (11.6-14.8) Platelet Count 329 K/UL (150-450) Mean Platelet Volume 8.5 FL (6.5-10.1) Neutrophils (%) (Auto) 83.6 % (45.0-75.0) Lymphocytes (%) (Auto) 10.4 % (20.0-45.0) Monocytes (%) (Auto) 4.7 % (1.0-10.0) Eosinophils (%) (Auto) 0.9 % (0.0-3.0) Basophils (%) (Auto) 0.4 % (0.0-2.0) Sodium Level 139 MMOL/L (136-145) Potassium Level 4.1 MMOL/L (3.5-5.1) Chloride Level 103 MMOL/L (98-107) Carbon Dioxide Level 28 MMOL/L (21-32) Anion Gap 8 mmol/L (5-15) Blood Urea Nitrogen 10 mg/dL (7-18) Creatinine 0.4 MG/DL (0.55-1.30) Estimat Glomerular Filtration Rate > 60 mL/min (>60) Glucose Level 114 MG/DL (74-106) Calcium Level 9.0 MG/DL (8.5-10.1) POC Whole Blood Glucose 114 MG/DL (74-106) 114 MG/DL (74-106) 110 MG/DL (74-106) Test 08/10/20 07:35 08/10/20 11:28 08/10/20 18:20 08/10/20 23:38 White Blood Count 18.7 K/UL (4.8-10.8) Red Blood Count 3.02 M/UL (4.20-5.40) Hemoglobin 8.4 G/DL (12.0-16.0) Hematocrit 26.5 % (37.0-47.0) Mean Corpuscular Volume 88 FL (80-99) Mean Corpuscular Hemoglobin 27.9 PG (27.0-31.0) Mean Corpuscular Hemoglobin Concent 31.8 G/DL (32.0-36.0) Red Cell Distribution Width 15.6 % (11.6-14.8) Platelet Count 388 K/UL (150-450) Mean Platelet Volume 7.5 FL (6.5-10.1) Neutrophils (%) (Auto) % (45.0-75.0) Lymphocytes (%) (Auto) % (20.0-45.0) Monocytes (%) (Auto) % (1.0-10.0) Eosinophils (%) (Auto) % (0.0-3.0) Basophils (%) (Auto) % (0.0-2.0) Differential Total Cells Counted 100 Neutrophils % (Manual) 86 % (45-75) Lymphocytes % (Manual) 8 % (20-45) Monocytes % (Manual) 4 % (1-10) Eosinophils % (Manual) 2 % (0-3) Basophils % (Manual) 0 % (0-2) Band Neutrophils 0 % (0-8) Platelet Estimate Adequate Platelet Morphology Normal Polychromasia 1+ Hypochromasia 1+ Anisocytosis 1+ Vancomycin Level Trough 10.4 ug/mL (5.0-12.0) POC Whole Blood Glucose 111 MG/DL (74-106) 122 MG/DL (74-106) 115 MG/DL (74-106) Test 08/11/20 02:50 08/11/20 05:08 White Blood Count 15.4 K/UL (4.8-10.8) Red Blood Count 2.84 M/UL (4.20-5.40) Hemoglobin 7.9 G/DL (12.0-16.0) Hematocrit 25.2 % (37.0-47.0) Mean Corpuscular Volume 89 FL (80-99) Mean Corpuscular Hemoglobin 27.7 PG (27.0-31.0) Mean Corpuscular Hemoglobin Concent 31.3 G/DL (32.0-36.0) Red Cell Distribution Width 15.9 % (11.6-14.8) Platelet Count 405 K/UL (150-450) Mean Platelet Volume 6.7 FL (6.5-10.1) Neutrophils (%) (Auto) % (45.0-75.0) Lymphocytes (%) (Auto) % (20.0-45.0) Monocytes (%) (Auto) % (1.0-10.0) Eosinophils (%) (Auto) % (0.0-3.0) Basophils (%) (Auto) % (0.0-2.0) Sodium Level 138 MMOL/L (136-145) Potassium Level 4.5 MMOL/L (3.5-5.1) Chloride Level 104 MMOL/L (98-107) Carbon Dioxide Level 26 MMOL/L (21-32) Anion Gap 8 mmol/L (5-15) Blood Urea Nitrogen 11 mg/dL (7-18) Creatinine 0.4 MG/DL (0.55-1.30) Estimat Glomerular Filtration Rate > 60 mL/min (>60) Glucose Level 109 MG/DL (74-106) Calcium Level 8.8 MG/DL (8.5-10.1) POC Whole Blood Glucose 119 MG/DL (74-106) Height (Feet): 5 Height (Inches): 2.00 Weight (Pounds): 85 Objective Physical Exam Sp02 EP Interpretation: reviewed, normal General Appearance: no apparent distress, non-verbal Head: normocephalic, atraumatic ENT: hearing grossly normal, no angioedema Respiratory: chest non-tender, lungs clear, normal breath sounds,++bipap Cardiovascular: no edema, tachycardia Gastrointestinal: normal bowel sounds, non tender, soft, ++gt Rectal: deferred Musculoskeletal: normal inspection Neurologic: alert, motor strength/tone normal, no focal defects Psychiatric: mood/affect normal Skin: other - See RN skin exam. Lymphatic: no adenopathy Gu: valderrama+++ Nate Begum MD Aug 11, 2020 06:58
--- NOTE | 2020-08-11 07:20 | NUR ---
NURSE HAND-OFF REPORT: Important Events on Shift:[No acute events] Patient Status: [Stable] Diet: [Glucerna 1.2 50cc/hr] Pending Orders: [NA] Pending Results/Labs:[NA] Pending MD notification:[NA] Latest Vital Signs: Temperature 98.1 , Pulse 91 , B/P 113 /65 , Respiratory Rate 20 , O2 SAT 95 , Bi-pap, O2 Flow Rate 3.0 . Vital Sign Comment: [Stable] EKG Rhythm: Sinus Rhythm Rhythm change?: N Notified?: Y -Dr Rima MENDEZ Response: No New Orders Received Latest Huggins Fall Score: 50 Fall Risk: High Risk Safety Measures: Call light Within Reach, Bed Alarm Zone 1, Side Rails Side Rails x3, Bed position Low and Locked. Fall Precautions: Yellow Socks Yellow Gown Door Sign Patient Fall Education Report given to [DURAN Rivera].
[2020-08-11 08:00] VITALS: BP 117/70
[2020-08-11] MEDS: Dakin's 0.125% Soln (Quarter Strength) 16oz TOPIC SCH (09:00)
--- NOTE | 2020-08-11 09:06 | Infectious Diseases Prog Note ---
Assessment/Plan 69yo F with: Acute hypoxic resp failure requiring BiPAP, improved Afebrile Leukocytosis to 30, improving Pneumonia UTI Recent COVID dx 07/20/2008/05 BCx NTD UA 30-40 WBC, UCx >100k E.coli and P.mirabilis (both terrazas-S) Resp cx +MRSA (S-bactrim, doxy) COVID neg CXR: Left infrahilar and basilar infiltrate, likely pneumonia. Questionable infiltrates on the right as well. MRSA nares positive on prior admission 08/08 CXR: 1. Interval mild improvement in the left infrahilar opacity. This may represent atelectasis versus pneumonia. 2. Persistent bilateral prominent interstitial markings. This is nonspecific and may represent a mild bronchitis or pneumonitis. Recent h/o COVID pneumonia 07/20/20 Stable resp status, on baseline 3L NC 07/08 COVID rapid and PCR neg 07/20 COVID PCR positive Sepsis Leukocytosis to 21 Afebrile but with fever at SNF [employer] Lymphopenia Hypoxic w/ NC O2 requirement, r/o PNA 07/08 BCx NTD UA+, UCx <10k GNR COVID rapid test neg, PCR neg CXR: No acute process 07/14 UCx +yeast (colonizer) +RLE DVT on US 07/09 Elevated LFTs 67 / 120 Abd TTP 06/29 Abd US wnl Acute hep panel neg Cr 0.5 HIV screen neg PMH: DM CHF Dementia SNF resident Plan: Cont Zosyn #2/5 given persistent leukocytosis (abx d#01/16) - tentative end date of 08/15 Cont vanco IV #7/14 for MRSA pneumonia, on discharge can transition to oral linezolid 600mg PO BID to complete rest of course, end date 08/18 Trend WBC - improving slowly OK to d/c to SNF on above abx courses from ID standpoint 08/10 SP CTX #3 08/07 SP Zosyn #2 07/17 SP Zosyn #7 07/10 SP CTX #2 Monitor CBC/CMP Monitor temp curve, hemodynamics Monitor resp status D/w RN Thank you for this consult. [facility] will continue to follow. Subjective Allergies: Coded Allergies: ERYTHROMYCIN BASE (Verified Allergy, Unknown, 11/12/16) AF Satting 100% on RA WBC 15, improving Objective Last 24 Hour Vital Signs Date Time Temp Pulse Resp B/P (MAP) Pulse Ox O2 Delivery O2 Flow Rate FiO2 08/11/20 04:00 98 08/11/20 04:00 98.1 91 20 113/65 (81) 95 08/11/20 04:00 Room Air 08/11/20 00:00 97.7 88 20 110/63 (79) 96 08/11/20 00:00 Room Air 08/11/20 00:00 86 08/10/20 20:58 93 118/67 08/10/20 20:00 Room Air 08/10/20 20:00 93 08/10/20 20:00 97.2 95 20 118/67 (84) 95 08/10/20 19:35 96 Room Air 21 08/10/20 19:35 92 20 96 Room Air 21 08/10/20 16:00 98.1 90 20 107/76 (86) 97 08/10/20 16:00 90 08/10/20 16:00 Room Air 08/10/20 12:00 98.1 92 22 120/61 (80) 97 08/10/20 12:00 Room Air 08/10/20 12:00 93 Height (Feet): 5 Height (Inches): 2.00 Weight (Pounds): 85 Gen: NAD in bed HEENT: NCAT CV: RRR Pulm: CTAB Abd: Soft, NTND Ext: No c/c/e Neuro: Awake but not interactive Laboratory Tests Test 08/10/20 11:28 08/10/20 18:20 08/10/20 23:38 08/11/20 02:50 POC Whole Blood Glucose 111 MG/DL (74-106) H 122 MG/DL (74-106) H 115 MG/DL (74-106) H White Blood Count 15.4 K/UL (4.8-10.8) H Red Blood Count 2.84 M/UL (4.20-5.40) L Hemoglobin 7.9 G/DL (12.0-16.0) L Hematocrit 25.2 % (37.0-47.0) L Mean Corpuscular Volume 89 FL (80-99) Mean Corpuscular Hemoglobin 27.7 PG (27.0-31.0) Mean Corpuscular Hemoglobin Concent 31.3 G/DL (32.0-36.0) L Red Cell Distribution Width 15.9 % (11.6-14.8) H Platelet Count 405 K/UL (150-450) Mean Platelet Volume 6.7 FL (6.5-10.1) Neutrophils (%) (Auto) % (45.0-75.0) Lymphocytes (%) (Auto) % (20.0-45.0) Monocytes (%) (Auto) % (1.0-10.0) Eosinophils (%) (Auto) % (0.0-3.0) Basophils (%) (Auto) % (0.0-2.0) Sodium Level 138 MMOL/L (136-145) Potassium Level 4.5 MMOL/L (3.5-5.1) Chloride Level 104 MMOL/L (98-107) Carbon Dioxide Level 26 MMOL/L (21-32) Anion Gap 8 mmol/L (5-15) Blood Urea Nitrogen 11 mg/dL (7-18) Creatinine 0.4 MG/DL (0.55-1.30) L Estimat Glomerular Filtration Rate > 60 mL/min (>60) Glucose Level 109 MG/DL (74-106) H Calcium Level 8.8 MG/DL (8.5-10.1) Test 08/11/20 05:08 POC Whole Blood Glucose 119 MG/DL (74-106) H Current Medications Medications (Trade) Dose Ordered Sig/Alvarado Route PRN Reason Start Time Stop Time Status Last Admin Dose Admin Acetaminophen (Tylenol) 650 mg Q4H PRN GT Mild Pain (Pain Scale 1-3) 08/05/20 11:30 09/04/20 11:29 Acetaminophen (Tylenol) 650 mg Q4H PRN GT TEMP > 100.5 08/05/20 11:45 09/04/20 11:44 Carvedilol (Coreg) 6.25 mg EVERY 12 HOURS GT 08/08/20 21:00 09/07/20 20:59 08/10/20 20:58 Dextrose (Dextrose 50%) 25 ml Q30M PRN IV Hypoglycemia 08/06/20 12:00 11/04/20 11:59 Dextrose (Dextrose 50%) 50 ml Q30M PRN IV Hypoglycemia 08/06/20 12:00 11/04/20 11:59 Heparin Sodium (Porcine) (Heparin 5000 units/ml) 5,000 units EVERY 12 HOURS SUBQ 08/05/20 21:00 09/19/20 20:59 08/10/20 20:58 Insulin Aspart (NovoLOG) Q6HR SUBQ 08/06/20 18:00 11/04/20 17:59 Levetiracetam (Keppra) 500 mg Q12HR GT 08/05/20 21:00 09/04/20 20:59 08/10/20 20:57 Midodrine (Pro-Amatine) 10 mg Q8HR ORAL 08/06/20 14:00 11/04/20 13:59 08/11/20 05:12 Pantoprazole (Protonix) 40 mg Q12HR IVP 08/06/20 21:00 09/05/20 08:59 08/10/20 20:57 Piperacillin Sod/ Tazobactam Sod 3.375 gm/Sodium Chloride 110 ml @ 27.5 mls/hr EVERY 8 HOURS IVPB 08/10/20 11:30 08/15/20 11:29 08/11/20 05:12 Sodium 1,000 ml @ 75 mls/hr [id number] IV 08/06/20 14:00 09/05/20 13:59 08/11/20 00:48 Sodium Hypochlorite (Dakin's Quarter Strength) 1 applic DAILY TOPIC 08/06/20 09:00 09/05/20 08:59 08/10/20 10:26 Spironolactone (Aldactone) 25 mg DAILY GT 08/09/20 09:00 09/08/20 08:59 08/10/20 08:58 Vancomycin HCl (Vanco pharmacy to dose) 1 ea DAILY PRN MISC . 08/05/20 14:00 09/04/20 13:59 Vancomycin HCl 1 gm/Sodium Chloride 275 ml @ 183.708 mls/hr Q12H IVPB 08/10/20 20:00 08/15/20 19:59 08/10/20 19:55 Beth Marsh M.D. Aug 11, 2020 09:06
[2020-08-11] MEDS: Spironolactone 25mg tab GT SCH (09:26)
[2020-08-11] MEDS: Vancomycin 1 GM in NS 275 ML IVPB SCH ×2 (09:26→21:23)
[2020-08-11] MEDS: Carvedilol 6.25mg Tab GT SCH ×2 (09:27→21:26)
[2020-08-11] MEDS: levETIRAcetam 500mg/5ml Liquid GT SCH ×2 (09:28→21:24)
[2020-08-11] MEDS: Pantoprazole Inj IVP SCH ×2 (09:28→21:24)
[2020-08-11] MEDS: Heparin 5000 units/ml inj SUBQ SCH ×2 (09:33→21:26)
--- NOTE | 2020-08-11 11:39 | Nephrology Progress Note ---
Assessment/Plan Problem List: (1) Electrolyte imbalance (2) Sepsis (3) UTI (urinary tract infection) (4) Dehydration (5) Anemia (6) Hyperglycemia (7) Seizure disorder Assessment Patient is admitted with sepsis, leukocytosis, hypoxia Patient has evidence of UTI Electrolyte imbalances, hypokalemia Hypotension, blood pressure hovering 90 systolic Anemia Hyperglycemia Seizure disorder Plan August 11: Labs reviewed. Renal parameters stable. Continue per consultants. Remains full code. August 10: Labs reviewed. Renal parameters stable. Continue her current management. August 09: Labs reviewed. Renal parameters and electrolytes stable. Continue per consultants. August 08: Labs reviewed. Renal parameters electrolytes stable. Continue to monitor electrolytes. Continue per consultants. August 07: No CHEM panel drawn today. K-Phos given. Medication list reviewed. Check labs tomorrow. Continue per consultants. IV changed to half-normal saline Start Midodrin Potassium supplement Monitor renal parameters Anemia work-up Per orders Subjective ROS Limited/Unobtainable: Yes Constitutional: Reports: malaise Objective Objective Last 24 Hour Vital Signs Date Time Temp Pulse Resp B/P (MAP) Pulse Ox O2 Delivery O2 Flow Rate FiO2 08/11/20 09:27 93 117/70 08/11/20 08:00 94 08/11/20 04:00 98 08/11/20 04:00 98.1 91 20 113/65 (81) 95 08/11/20 04:00 Room Air 08/11/20 00:00 97.7 88 20 110/63 (79) 96 08/11/20 00:00 Room Air 08/11/20 00:00 86 08/10/20 20:58 93 118/67 08/10/20 20:00 Room Air 08/10/20 20:00 93 08/10/20 20:00 97.2 95 20 118/67 (84) 95 08/10/20 19:35 96 Room Air 21 08/10/20 19:35 92 20 96 Room Air 21 08/10/20 16:00 98.1 90 20 107/76 (86) 97 08/10/20 16:00 90 08/10/20 16:00 Room Air 08/10/20 12:00 98.1 92 22 120/61 (80) 97 08/10/20 12:00 Room Air 08/10/20 12:00 93 Intake and Output 08/10/20 08/11/20 19:00 07:00 Intake Total 1515 ml 1550 ml Output Total 1300 ml 1800 ml Balance 215 ml -250 ml Intake Free Water 90 ml 200 ml IV Total 825 ml 750 ml Tube Feeding 600 ml 600 ml Output Urine Total 1300 ml 1800 ml Current Medications Medications (Trade) Dose Ordered Sig/Alvarado Route PRN Reason Start Time Stop Time Status Last Admin Dose Admin Acetaminophen (Tylenol) 650 mg Q4H PRN GT Mild Pain (Pain Scale 1-3) 08/05/20 11:30 09/04/20 11:29 Acetaminophen (Tylenol) 650 mg Q4H PRN GT TEMP > 100.5 08/05/20 11:45 09/04/20 11:44 Carvedilol (Coreg) 6.25 mg EVERY 12 HOURS GT 08/08/20 21:00 09/07/20 20:59 08/11/20 09:27 Dextrose (Dextrose 50%) 25 ml Q30M PRN IV Hypoglycemia 08/06/20 12:00 11/04/20 11:59 Dextrose (Dextrose 50%) 50 ml Q30M PRN IV Hypoglycemia 08/06/20 12:00 11/04/20 11:59 Heparin Sodium (Porcine) (Heparin 5000 units/ml) 5,000 units EVERY 12 HOURS SUBQ 08/05/20 21:00 09/19/20 20:59 08/11/20 09:33 Insulin Aspart (NovoLOG) Q6HR SUBQ 08/06/20 18:00 11/04/20 17:59 Levetiracetam (Keppra) 500 mg Q12HR GT 08/05/20 21:00 09/04/20 20:59 08/11/20 09:28 Midodrine (Pro-Amatine) 10 mg Q8HR ORAL 08/06/20 14:00 11/04/20 13:59 08/11/20 05:12 Pantoprazole (Protonix) 40 mg Q12HR IVP 08/06/20 21:00 09/05/20 08:59 08/11/20 09:28 Piperacillin Sod/ Tazobactam Sod 3.375 gm/Sodium Chloride 110 ml @ 27.5 mls/hr EVERY 8 HOURS IVPB 08/10/20 11:30 08/15/20 11:29 08/11/20 05:12 Sodium 1,000 ml @ 75 mls/hr [id number] IV 08/06/20 14:00 09/05/20 13:59 08/11/20 00:48 Sodium Hypochlorite (Dakin's Quarter Strength) 1 applic DAILY TOPIC 08/06/20 09:00 09/05/20 08:59 08/10/20 10:26 Spironolactone (Aldactone) 25 mg DAILY GT 08/09/20 09:00 09/08/20 08:59 08/11/20 09:26 Vancomycin HCl ([facility] pharmacy to dose) 1 ea DAILY PRN MISC . 08/05/20 14:00 09/04/20 13:59 Vancomycin HCl 1 gm/Sodium Chloride 275 ml @ 183.708 mls/hr Q12H IVPB 08/10/20 20:00 08/15/20 19:59 08/11/20 09:26 Laboratory Tests 08/10/20 18:20: POC Whole Blood Glucose 122H 08/10/20 23:38: POC Whole Blood Glucose 115H 08/11/20 02:50: White Blood Count 15.4H, Red Blood Count 2.84L, Hemoglobin 7.9L, Hematocrit 25.2L, Mean Corpuscular Volume 89, Mean Corpuscular Hemoglobin 27.7, Mean Corpuscular Hemoglobin Concent 31.3L, Red Cell Distribution Width 15.9H, Platelet Count 405, Mean Platelet Volume 6.7, Neutrophils (%) (Auto) , Lymphocytes (%) (Auto) , Monocytes (%) (Auto) , Eosinophils (%) (Auto) , Basophils (%) (Auto) , Sodium Level 138, Potassium Level 4.5, Chloride Level 104, Carbon Dioxide Level 26, Anion Gap 8, Blood Urea Nitrogen 11, Creatinine 0.4L, Estimat Glomerular Filtration Rate > 60, Glucose Level 109H, Calcium Level 8.8 08/11/20 05:08: POC Whole Blood Glucose 119H Height (Feet): 5 Height (Inches): 2.00 Weight (Pounds): 85 General Appearance: no apparent distress, lethargic Cardiovascular: tachycardia Respiratory/Chest: decreased breath sounds Abdomen: distended Gabriele Honeycutt MD Aug 11, 2020 11:39
[2020-08-11 12:00] VITALS: BP 100/60
--- NOTE | 2020-08-11 14:24 | Surgery Progress Note ---
Surgery Progress Note Subjective Additional Comments wbc trending down h/h noted no n/v Objective Last 24 Hour Vital Signs Date Time Temp Pulse Resp B/P (MAP) Pulse Ox O2 Delivery O2 Flow Rate FiO2 08/11/20 12:00 98.4 90 20 100/60 (73) 96 08/11/20 12:00 Room Air 08/11/20 11:46 87 08/11/20 09:27 93 117/70 08/11/20 08:00 Room Air 08/11/20 08:00 98.2 93 19 117/70 (86) 94 08/11/20 08:00 94 08/11/20 04:00 98 08/11/20 04:00 98.1 91 20 113/65 (81) 95 08/11/20 04:00 Room Air 08/11/20 00:00 97.7 88 20 110/63 (79) 96 08/11/20 00:00 Room Air 08/11/20 00:00 86 08/10/20 20:58 93 118/67 08/10/20 20:00 Room Air 08/10/20 20:00 93 08/10/20 20:00 97.2 95 20 118/67 (84) 95 08/10/20 19:35 96 Room Air 21 08/10/20 19:35 92 20 96 Room Air 21 08/10/20 16:00 98.1 90 20 107/76 (86) 97 08/10/20 16:00 90 08/10/20 16:00 Room Air I&O Intake and Output 08/10/20 08/11/20 19:00 07:00 Intake Total 1515 ml 1550 ml Output Total 1300 ml 1800 ml Balance 215 ml -250 ml Intake Free Water 90 ml 200 ml IV Total 825 ml 750 ml Tube Feeding 600 ml 600 ml Output Urine Total 1300 ml 1800 ml Dressing: saturated Cardiovascular: RSR Respiratory: decreased breath sounds Abdomen: soft, non-tender, present bowel sounds Extremities: no tenderness, no cyanosis Laboratory Tests Test 08/10/20 18:20 08/10/20 23:38 08/11/20 02:50 08/11/20 05:08 POC Whole Blood Glucose 122 MG/DL (74-106) H 115 MG/DL (74-106) H 119 MG/DL (74-106) H White Blood Count 15.4 K/UL (4.8-10.8) H Red Blood Count 2.84 M/UL (4.20-5.40) L Hemoglobin 7.9 G/DL (12.0-16.0) L Hematocrit 25.2 % (37.0-47.0) L Mean Corpuscular Volume 89 FL (80-99) Mean Corpuscular Hemoglobin 27.7 PG (27.0-31.0) Mean Corpuscular Hemoglobin Concent 31.3 G/DL (32.0-36.0) L Red Cell Distribution Width 15.9 % (11.6-14.8) H Platelet Count 405 K/UL (150-450) Mean Platelet Volume 6.7 FL (6.5-10.1) Neutrophils (%) (Auto) % (45.0-75.0) Lymphocytes (%) (Auto) % (20.0-45.0) Monocytes (%) (Auto) % (1.0-10.0) Eosinophils (%) (Auto) % (0.0-3.0) Basophils (%) (Auto) % (0.0-2.0) Sodium Level 138 MMOL/L (136-145) Potassium Level 4.5 MMOL/L (3.5-5.1) Chloride Level 104 MMOL/L (98-107) Carbon Dioxide Level 26 MMOL/L (21-32) Anion Gap 8 mmol/L (5-15) Blood Urea Nitrogen 11 mg/dL (7-18) Creatinine 0.4 MG/DL (0.55-1.30) L Estimat Glomerular Filtration Rate > 60 mL/min (>60) Glucose Level 109 MG/DL (74-106) H Calcium Level 8.8 MG/DL (8.5-10.1) Test 08/11/20 11:51 POC Whole Blood Glucose Pending Plan Problems: (1) Leukocytosis Assessment & Plan: (1) Fever (2) Leukocytosis Assessment & Plan: on abx id input appreciated wounds not infected nutrition (3) Tachycardia (4) Decubitus skin ulcer (5) Pyelonephritis (6) Malnutrition (7) Sepsis Assessment & Plan: ill appearing poor skin turgor leukocytosis anemia h/h low trending prbc prn Needs based on underweight, DM 35.5kg 30-40 kcals/kg 0491-7646 total kcals 1.25-2 g protein/kg 44-71 g total protein 25-35ml/kcal mL/kg [phone] total fluid mLs NUTRITION DIAGNOSIS: Swallowing difficulty R/T dysphagia as evidenced by pt is Gtube dependent. ENTERAL NUTRITION RECOMMENDATIONS: Glucerna 1.2 @50ml x24 hrs to provide 1200ml, 1440 kcal, 72g pro, 966ml free H2O - As able rec carb control formula for h/o DM. - Start @30ml/hr for 6 hrs, advance as tolerated 10ml/hr q4-6 hrs to goal. - Flush per MD/ HOB over 30 degrees ADDITIONAL RECOMMENDATIONS: - Per SNF: 5'3" and 78lbs/35.45kg. - Check lytes daily, replete as needed - A1c for eval of glycemic control - Wound care: advanced per RN, f/up with WC RN. Add LINA BID w/ GT, Vit C 250mg BID Assessment & Plan: leukocytosis lactic acidosis malnutrition underweight bmi 13 micro noted on abx as per ID cont abx wounds unlikely etiology will follow with local care and evaluation to ensure improving thank you There is a slight degree of image degradation due to motion artifact. The right upper lobe is largely clear following may be some interstitial septal thickening in the apex. The right middle lobe is clear. The right lower lobe demonstrates some atelectasis at the right lung base. There is also a focal 6 mm nodular opacity, image 50 series 5. There is a vague mosaic attenuation pattern. Left upper lobe demonstrates scattered areas of mosaic attenuation superiorly image 10 of series 5 demonstrates a 3 mm left upper lobe nodule.. Irregular consolidative opacities are seen in the inferior left upper lobe. More extensive consolidation in a patchy and irregular distribution are seen in the left lower lobe. There is a small left pleural effusion. The heart is upper limits of normal in size. The ascending thoracic aorta is mildly ectatic. No mediastinal or hilar mass or adenopathy. Unremarkable. No axillary or chest wall mass or adenopathy demonstrated. The bones are unremarkable except for minimal degenerative spondylosis changes and slight anterior bowing of the sternum. The included lung bases demonstrate a gastrostomy which appears well-positioned. There is trace ascites Impression: Opacities in the left lower lobe and also to a lesser extent in the left upper lobe and minimally in the right lower lobe. Appearance is consistent with consolidation rather than mass. Most likely represents pneumonia, appearance nonspecific as regards etiology. Patchy pulmonary edema also possible, among other possibilities Small left pleural effusion Bilateral small nodules, as described. No further follow-up necessary if there are no risk factors for lung carcinoma. There are significant risk factors, then short interval follow-up CT in 6-12 months is recommended Trace ascites (2) Fever (3) Decubitus skin ulcer Assessment & Plan: Emaciated pt whom [presented on admission with Contractures, GT and Multiple Pressure Injuries. DTPI Thoracic Spine(L)1.4cm x (W)0.9cm. Base of Pressure Injury is indurated, Pupuric with surrounding maroon borders. Full Thickness stage 4 Sacral Pressure Injury(L)4.5cm x (W)3.7cm x(D)2.5cm, Undermined Borders clockwise 12-6 by 3.1cm@12o'clock. Base of wound is arleen. Bone is palpable at base of wound. Scattered slough along loose edges. Small amt serous exudate noted. Wound is malodorous. Non- Blanching erythema without induration periwound. Full thickness stage 4 Pressure Injury L trochanter(L)6.5cm x (W)9cm x 1.4cm. Undermining clockwise 7-5 by 2.6cm @12o'clock. Base of wound 60% fibrinous slough, 40% moist and pink. Bone exposure at base of wound. Edges are detached with scattered slough along borders. Small amt seropurulent exudate noted. Wound is malodorous. Periwound is maroon and indurated. Unstageable Pressure Injury R heel (L)0.6cm x (W)0.6cm.Stable dry eschar with attached edges. Surrounding Heel is boggy with Non-Blanchable erythema. DTPI lateral R Malleolus (L)1.5cm x (W)2.2cm. Base of wound is maroon and fluctuant. No evidence of further skin breakdown periwound. Unstageable Pressure Injury Dorsal R 1st metatarsal(L)0.8cm x (W)1.2cm. Dry eschar with marginal erythema along adherent borders Periwound is erythematous without fluctuance or induration. Non-Blanchable erythema with fluctuance distal/lateral L foot (L)1cm x (W)1cm. Unstageable Pressure Injury L Hallux (L)2.2cm x (W)1.5cm. Dry eschar with surrounding non-blanchable erythema.with fluctuance. Unstageable Pressure Injury Achilles L foot (L)1.5cm x (W)1.5 cm. Stable dry eschar with surrounding Non-blanchable erythema extending into plantar aspect of L heel. L heel is boggy.. Tx.Plan: Apply Cavilon Skin Barrier to Thoracic DTPI . Cover with Optifoam drsg. Change every 7 days and prn. Cleanse Sacral Wound with Dakin's 0.25% Nicki. Loosely pack wound with Dakin's moistened Kerlix. Apply Triad Paste periwound. Cover with Optifoam drsg Daily and prn. Cleanse L trochanteric Wound with Dakin's 0.25% nicki. Loosely pack with Dakin's moistened Kerlix. Apply Triad Paste Periwound. Cover with Optifoam drsg Daily and prn. Apply Betadine to Necrotic areas of L Foot . Cover each site with Optifoam drsg. Change every 3 days and prn. Apply Betadine to To Pressure Injuires R Foot. Cover each site with Optifoam drsgs. Change every 3 days and prn. Reposition at least every 2hours or as tolerated. Off-load heels with Pillow. APM/SOLOMON Mattress overlay. (4) Sepsis (5) Malnutrition Chao Ovalle Aug 11, 2020 14:24
[2020-08-11 16:00] VITALS: BP 125/65
--- NOTE | 2020-08-11 16:13 | NUR ---
CASE MANAGEMENT:REVIEW 08/11/20 SI: PNA. UTI 98.4 90 20 100/60 96% ON RA WBC+15.4 H/H-7.9/25.2 IS: IV VANCOMYCIN Q12 IV ZOSYN Q8HRS IVF@75/HR ALDACTONE GT QD COREG GT Q12 IV PROTONIX Q12 MIDODRINE PO Q8HRS KEPPRA GT Q12 HEPARIN SQ Q12 :STEP DOWN UNIT DCP: FROM [facility]
--- NOTE | 2020-08-11 19:25 | NUR ---
Assumed care of patient from DURAN Esparza.
--- NOTE | 2020-08-11 19:32 | General Progress Note ---
Subjective Constitutional: Reports: no symptoms HEENT: Reports: no symptoms Cardiovascular: Reports: no symptoms Respiratory: Reports: no symptoms Gastrointestinal/Abdominal: Reports: no symptoms Genitourinary: Reports: no symptoms Neurologic/Psychiatric: Reports: no symptoms Endocrine: Reports: no symptoms Hematologic/Lymphatic: Reports: no symptoms Allergies: Coded Allergies: ERYTHROMYCIN BASE (Verified Allergy, Unknown, 11/12/16) Objective Last 24 Hour Vital Signs Date Time Temp Pulse Resp B/P (MAP) Pulse Ox O2 Delivery O2 Flow Rate FiO2 08/11/20 16:00 Room Air 08/11/20 16:00 97.9 89 21 125/65 (85) 96 08/11/20 15:38 90 08/11/20 12:00 98.4 90 20 100/60 (73) 96 08/11/20 12:00 Room Air 08/11/20 11:46 87 08/11/20 09:27 93 117/70 08/11/20 08:00 Room Air 08/11/20 08:00 98.2 93 19 117/70 (86) 94 08/11/20 08:00 94 08/11/20 07:00 94 Room Air 21 08/11/20 04:00 98 08/11/20 04:00 98.1 91 20 113/65 (81) 95 08/11/20 04:00 Room Air 08/11/20 00:00 97.7 88 20 110/63 (79) 96 08/11/20 00:00 Room Air 08/11/20 00:00 86 08/10/20 20:58 93 118/67 08/10/20 20:00 Room Air 08/10/20 20:00 93 08/10/20 20:00 97.2 95 20 118/67 (84) 95 08/10/20 19:35 96 Room Air 21 08/10/20 19:35 92 20 96 Room Air 21 Intake and Output 08/10/20 08/11/20 19:00 07:00 Intake Total 1515 ml 1550 ml Output Total 1300 ml 1800 ml Balance 215 ml -250 ml Intake Free Water 90 ml 200 ml IV Total 825 ml 750 ml Tube Feeding 600 ml 600 ml Output Urine Total 1300 ml 1800 ml Laboratory Tests 08/10/20 23:38: POC Whole Blood Glucose 115H 08/11/20 02:50: White Blood Count 15.4H, Red Blood Count 2.84L, Hemoglobin 7.9L, Hematocrit 25.2L, Mean Corpuscular Volume 89, Mean Corpuscular Hemoglobin 27.7, Mean Corpuscular Hemoglobin Concent 31.3L, Red Cell Distribution Width 15.9H, Platelet Count 405, Mean Platelet Volume 6.7, Neutrophils (%) (Auto) , Lymphocytes (%) (Auto) , Monocytes (%) (Auto) , Eosinophils (%) (Auto) , Basophils (%) (Auto) , Sodium Level 138, Potassium Level 4.5, Chloride Level 104, Carbon Dioxide Level 26, Anion Gap 8, Blood Urea Nitrogen 11, Creatinine 0.4L, Estimat Glomerular Filtration Rate > 60, Glucose Level 109H, Calcium Level 8.8 08/11/20 05:08: POC Whole Blood Glucose 119H 08/11/20 11:51: POC Whole Blood Glucose [Pending] 08/11/20 17:57: POC Whole Blood Glucose 104 Height (Feet): 5 Height (Inches): 2.00 Weight (Pounds): 85 General Appearance: no apparent distress, alert, confused EENT: normal ENT inspection Neck: supple Cardiovascular: normal rate, regular rhythm, no gallop/murmur, no JVD Respiratory/Chest: normal breath sounds, no respiratory distress, no accessory muscle use, decreased breath sounds Abdomen: normal bowel sounds, non tender, soft, no organomegaly, no mass Extremities: non-tender Neurologic: alert, unresponsive, aphasia Assessment/Plan Status Narrative Patient is awake afebrile hemodynamically stable with brief eye contact with very short attention span aphasic does not respond to verbal question but respond to verbal stimuli does respond to tactile stimuli laboratory tests improved her WBC now declined to 15,000 the number that she had on admission now on Zosyn Vanco plan to be continued through August 15 laboratory tests will be done in a.m. Gale Leija MD, MD Aug 11, 2020 19:32
--- NOTE | 2020-08-11 19:36 | NUR ---
NURSE HAND-OFF REPORT: Important Events on Shift:None Patient Status: Sleeping but easily arousable. no resp distress. Diet: Glucerna 1.2 @ 50ml/hr Pending Orders: None Pending Results/Labs: None Pending MD notification: None Latest Vital Signs: Temperature 97.9 , Pulse 89 , B/P 125 /65 , Respiratory Rate 21 , O2 SAT 96 , Bi-pap, O2 Flow Rate 3.0 . Vital Sign Comment: None EKG Rhythm: Sinus Rhythm Rhythm change?: N MD Notified?: N MD Response: No New Orders Received Latest Huggins Fall Score: 50 Fall Risk: High Risk Safety Measures: Call light Within Reach, Bed Alarm Zone 1, Side Rails Side Rails x3, Bed position Low and Locked. Fall Precautions: Yellow Socks Yellow Gown Door Sign Patient Fall Education Report given to DURAN Simon
[2020-08-11 20:00] VITALS: BP 118/55
[2020-08-11 20:57] LABS: HEMATOCRIT 24.3 % (37.0-47.0); HEMOGLOBIN 7.8 G/DL (12.0-16.0); MEAN CORPUSCULAR VOLUME 88 FL (80-99); PLATELET COUNT 461 K/UL (150-450); RED BLOOD COUNT 2.77 M/UL (4.20-5.40); RED CELL DISTRIBUTION WIDTH 16.6 % (11.6-14.8); WHITE BLOOD COUNT 16.3 K/UL (4.8-10.8)
[2020-08-11 21:02] LABS: LYMPHOCYTES % (AUTO) 9.7 % (20.0-45.0); MONOCYTES % (AUTO) 4.2 % (1.0-10.0); NEUTROPHILS % (AUTO) 84.7 % (45.0-75.0)
[2020-08-11 21:03] LABS: BASOPHILS % (AUTO) 0.7 % (0.0-2.0); EOSINOPHILS % (AUTO) 0.8 % (0.0-3.0)
--- NOTE | 2020-08-11 22:18 | NUR ---
Inability to teach patient as she is obtunded and not able to participate in teaching. Addendum: 08/11/20 at 2237 by JANINA HERRERA RN Amended: Links added.
--- NOTE | 2020-08-11 23:14 | NUR ---
Patient pulled out PIV to Left Hand. Attempted X2, unsuccessful. Requested that operations vice president attempt to place PIV on patient. ABX (Zosyn) has not yet been administered due to IV out. Will correct time in charting once able to get successful IV and administer ABX.
--- NOTE | 2020-08-11 23:45 | NUR ---
Successful 22ga IV placed by DURAN Mckee to Right wrist/FA area. Wrapped in kerlix to protect from pulling out. Patient continued to reach for EJ and pick at it. Spoke with speech language pathologist prnMaria Victoria, and placed mittens on patient for protection of IV sites. Pt febrile this hour to 101.1. Given Tylenol for fever.
[2020-08-12] VITALS: BP 110/66
[2020-08-12] MEDS: 1/2NS w/KCl 20mEq 1000ml 1,000 ML IV SCH ×2 (03:51→17:43)
--- NOTE | 2020-08-12 04:00 | NUR ---
Repositioned patient, changed out tube feeds, tube was clogged but was unable to unclog successfully. Patient put out a large amount of urine overnight. Cleansed face, lips, and provided Biotene for mouth. Patient contracted in legs so difficult to turn to left. BS held overnight lowest 80. Will continue to monitor.
[2020-08-12 04:01] VITALS: BP 110/67
[2020-08-12] MEDS: NovoLOG Insulin Flexpen SUBQ SCH ×4 (06:00→17:47)
[2020-08-12] MEDS: Piperacillin/Tazobactam 3.375 GM in NS 110 ML IVPB SCH ×3 (06:19→21:55)
[2020-08-12] MEDS: Midodrine 10mg tab ORAL SCH ×3 (06:20→22:00)
--- NOTE | 2020-08-12 06:51 | Hematology/Onc Progress Note ---
Assessment/Plan Assessment/Plan Assessment and Recs # Leukocytosis with likely sepsis due to pna --> ON ABX vanc/zosyn-->vanc/ctx --> is on ivfs --> abx as per ID --> imaging noted --> wbc 28-->16->15-->16 # Right lower extremity dvt --> h/h to low for anticoag --> consider repeat lower duplex at this time-->neg dvt 08/06 --> consider ivcf # Anemia due to chronic disease --> hgb 10-->8.2-->7.4 # Respiratory distress --> r/o covid --> per pulm # Dysphagia s/p peg # CVA hx # HL --> lipitor and asa # Tachycardia --> ivfs should improve # Dvt ppx heparin sq Appreciate consultation and iraida Rn Subjective HEENT: Denies: no symptoms, eye pain, blurred vision, tearing, double vision, ear pain, ear discharge, nose pain, nose congestion, throat pain, throat swelling, mouth pain, mouth swelling, other Cardiovascular: Denies: no symptoms, chest pain, edema, irregular heart rate, lightheadedness, palpitations, syncope, other Allergies: Coded Allergies: ERYTHROMYCIN BASE (Verified Allergy, Unknown, 11/12/16) All Systems: reviewed and negative except above Subjective 08/09 asleep, on glucerna, meds noted, labs reviewed 2/1 labs reviewed, meds noted, no bleeding, iraida rn, on fluids 2/2 labs reviewed, meds noted, hgb 7.4, transfuse on prn basis 2/3 meds reviewed, labs pending from am, is on abx Objective Objective Current Medications Medications (Trade) Dose Ordered Sig/Alvarado Route PRN Reason Start Time Stop Time Status Last Admin Dose Admin Acetaminophen (Tylenol) 650 mg Q4H PRN GT Mild Pain (Pain Scale 1-3) 08/05/20 11:30 09/04/20 11:29 Acetaminophen (Tylenol) 650 mg Q4H PRN GT TEMP > 100.5 08/05/20 11:45 09/04/20 11:44 08/12/20 00:05 Carvedilol (Coreg) 6.25 mg EVERY 12 HOURS GT 08/08/20 21:00 09/07/20 20:59 2/2/21 21:26 Dextrose (Dextrose 50%) 25 ml Q30M PRN IV Hypoglycemia 08/06/20 12:00 11/04/20 11:59 Dextrose (Dextrose 50%) 50 ml Q30M PRN IV Hypoglycemia 08/06/20 12:00 11/04/20 11:59 Heparin Sodium (Porcine) (Heparin 5000 units/ml) 5,000 units EVERY 12 HOURS SUBQ 08/05/20 21:00 09/19/20 20:59 08/11/20 21:26 Insulin Aspart (NovoLOG) Q6HR SUBQ 08/06/20 18:00 11/04/20 17:59 Levetiracetam (Keppra) 500 mg Q12HR GT 08/05/20 21:00 09/04/20 20:59 08/11/20 21:24 Midodrine (Pro-Amatine) 10 mg Q8HR ORAL 08/06/20 14:00 11/04/20 13:59 08/12/20 06:20 Pantoprazole (Protonix) 40 mg Q12HR IVP 08/06/20 21:00 09/05/20 08:59 08/11/20 21:24 Piperacillin Sod/ Tazobactam Sod 3.375 gm/Sodium Chloride 110 ml @ 27.5 mls/hr EVERY 8 HOURS IVPB 08/10/20 11:30 08/15/20 11:29 08/12/20 06:19 Sodium 1,000 ml @ 75 mls/hr [id number] IV 08/06/20 14:00 09/05/20 13:59 08/12/20 03:51 Sodium Hypochlorite (Dakin's Quarter Strength) 1 applic DAILY TOPIC 08/06/20 09:00 09/05/20 08:59 08/10/20 10:26 Spironolactone (Aldactone) 25 mg DAILY GT 08/09/20 09:00 09/08/20 08:59 08/11/20 09:26 Vancomycin HCl (Vanco pharmacy to dose) 1 ea DAILY PRN MISC . 08/05/20 14:00 09/04/20 13:59 Vancomycin HCl 1 gm/Sodium Chloride 275 ml @ 183.708 mls/hr Q12H IVPB 08/10/20 20:00 08/15/20 19:59 08/11/20 21:23 Last 24 Hour Vital Signs Date Time Temp Pulse Resp B/P (MAP) Pulse Ox O2 Delivery O2 Flow Rate FiO2 08/12/20 04:01 97.7 84 21 110/67 (81) 96 08/12/20 04:00 Room Air 08/12/20 04:00 70 08/12/20 02:00 08/12/20 00:40 100.2 08/12/20 00:00 101.1 83 20 110/66 (81) 99 08/12/20 00:00 Room Air 08/12/20 00:00 83 08/11/20 21:26 91 118/55 08/11/20 20:00 99.1 93 18 118/55 (76) 97 08/11/20 20:00 Room Air 08/11/20 19:43 94 08/11/20 16:00 Room Air 08/11/20 16:00 97.9 89 21 125/65 (85) 96 08/11/20 15:38 90 08/11/20 12:00 98.4 90 20 100/60 (73) 96 08/11/20 12:00 Room Air 08/11/20 11:46 87 08/11/20 09:27 93 117/70 08/11/20 08:00 Room Air 08/11/20 08:00 98.2 93 19 117/70 (86) 94 08/11/20 08:00 94 08/11/20 07:00 94 Room Air 08/11/20 04:00 98 08/11/20 04:00 98.1 91 20 113/65 (81) 95 08/11/20 04:00 Room Air 08/11/20 00:00 97.7 88 20 110/63 (79) 96 08/11/20 00:00 Room Air 08/11/20 00:00 86 08/10/20 20:58 93 118/67 08/10/20 20:00 Room Air 08/10/20 20:00 93 08/10/20 20:00 97.2 95 20 118/67 (84) 95 08/10/20 19:35 96 Room Air 08/10/20 19:35 92 20 96 Room Air 08/10/20 16:00 98.1 90 20 107/76 (86) 97 08/10/20 16:00 90 08/10/20 16:00 Room Air 08/10/20 12:00 98.1 92 22 120/61 (80) 97 08/10/20 12:00 Room Air 08/10/20 12:00 93 08/10/20 08:59 100 120/86 08/10/20 08:30 99 Room Air 08/10/20 08:00 97.3 100 20 120/86 (97) 100 08/10/20 08:00 100 08/10/20 08:00 Room Air Intake and Output 08/11/20 08/12/20 19:00 07:00 Intake Total 2354.83 ml 934.17 ml Output Total 1250 ml 1250 ml Balance 1104.83 ml -315.83 ml Intake Free Water 200 ml IV Total 1350.83 ml 834.17 ml Tube Feeding 804 ml 100 ml Output Urine Total 1250 ml 1250 ml Labs Test 08/09/20 23:03 08/10/20 05:02 08/10/20 07:35 08/10/20 11:28 POC Whole Blood Glucose 114 MG/DL (74-106) 110 MG/DL (74-106) 111 MG/DL (74-106) White Blood Count 18.7 K/UL (4.8-10.8) Red Blood Count 3.02 M/UL (4.20-5.40) Hemoglobin 8.4 G/DL (12.0-16.0) Hematocrit 26.5 % (37.0-47.0) Mean Corpuscular Volume 88 FL (80-99) Mean Corpuscular Hemoglobin 27.9 PG (27.0-31.0) Mean Corpuscular Hemoglobin Concent 31.8 G/DL (32.0-36.0) Red Cell Distribution Width 15.6 % (11.6-14.8) Platelet Count 388 K/UL (150-450) Mean Platelet Volume 7.5 FL (6.5-10.1) Neutrophils (%) (Auto) % (45.0-75.0) Lymphocytes (%) (Auto) % (20.0-45.0) Monocytes (%) (Auto) % (1.0-10.0) Eosinophils (%) (Auto) % (0.0-3.0) Basophils (%) (Auto) % (0.0-2.0) Differential Total Cells Counted 100 Neutrophils % (Manual) 86 % (45-75) Lymphocytes % (Manual) 8 % (20-45) Monocytes % (Manual) 4 % (1-10) Eosinophils % (Manual) 2 % (0-3) Basophils % (Manual) 0 % (0-2) Band Neutrophils 0 % (0-8) Platelet Estimate Adequate Platelet Morphology Normal Polychromasia 1+ Hypochromasia 1+ Anisocytosis 1+ Vancomycin Level Trough 10.4 ug/mL (5.0-12.0) Test 08/10/20 18:20 08/10/20 23:38 08/11/20 02:50 08/11/20 05:08 POC Whole Blood Glucose 122 MG/DL (74-106) 115 MG/DL (74-106) 119 MG/DL (74-106) White Blood Count 15.4 K/UL (4.8-10.8) Red Blood Count 2.84 M/UL (4.20-5.40) Hemoglobin 7.9 G/DL (12.0-16.0) Hematocrit 25.2 % (37.0-47.0) Mean Corpuscular Volume 89 FL (80-99) Mean Corpuscular Hemoglobin 27.7 PG (27.0-31.0) Mean Corpuscular Hemoglobin Concent 31.3 G/DL (32.0-36.0) Red Cell Distribution Width 15.9 % (11.6-14.8) Platelet Count 405 K/UL (150-450) Mean Platelet Volume 6.7 FL (6.5-10.1) Neutrophils (%) (Auto) % (45.0-75.0) Lymphocytes (%) (Auto) % (20.0-45.0) Monocytes (%) (Auto) % (1.0-10.0) Eosinophils (%) (Auto) % (0.0-3.0) Basophils (%) (Auto) % (0.0-2.0) Sodium Level 138 MMOL/L (136-145) Potassium Level 4.5 MMOL/L (3.5-5.1) Chloride Level 104 MMOL/L (98-107) Carbon Dioxide Level 26 MMOL/L (21-32) Anion Gap 8 mmol/L (5-15) Blood Urea Nitrogen 11 mg/dL (7-18) Creatinine 0.4 MG/DL (0.55-1.30) Estimat Glomerular Filtration Rate > 60 mL/min (>60) Glucose Level 109 MG/DL (74-106) Calcium Level 8.8 MG/DL (8.5-10.1) Test 08/11/20 11:51 08/11/20 17:57 08/11/20 20:10 08/11/20 23:21 POC Whole Blood Glucose 104 MG/DL (74-106) White Blood Count 16.3 K/UL (4.8-10.8) Red Blood Count 2.77 M/UL (4.20-5.40) Hemoglobin 7.8 G/DL (12.0-16.0) Hematocrit 24.3 % (37.0-47.0) Mean Corpuscular Volume 88 FL (80-99) Mean Corpuscular Hemoglobin 28.2 PG (27.0-31.0) Mean Corpuscular Hemoglobin Concent 32.2 G/DL (32.0-36.0) Red Cell Distribution Width 16.6 % (11.6-14.8) Platelet Count 461 K/UL (150-450) Mean Platelet Volume 7.8 FL (6.5-10.1) Neutrophils (%) (Auto) 84.7 % (45.0-75.0) Lymphocytes (%) (Auto) 9.7 % (20.0-45.0) Monocytes (%) (Auto) 4.2 % (1.0-10.0) Eosinophils (%) (Auto) 0.8 % (0.0-3.0) Basophils (%) (Auto) 0.7 % (0.0-2.0) Test 08/12/20 06:31 Height (Feet): 5 Height (Inches): 2.00 Weight (Pounds): 85 Objective Physical Exam Sp02 EP Interpretation: reviewed, normal General Appearance: no apparent distress, non-verbal Head: normocephalic, atraumatic ENT: hearing grossly normal, no angioedema Respiratory: chest non-tender, lungs clear, normal breath sounds,++bipap Cardiovascular: no edema, tachycardia Gastrointestinal: normal bowel sounds, non tender, soft, ++gt Rectal: deferred Musculoskeletal: normal inspection Neurologic: alert, motor strength/tone normal, no focal defects Psychiatric: mood/affect normal Skin: other - See RN skin exam. Lymphatic: no adenopathy Gu: valderrama+++ Nate Begum MD Aug 12, 2020 06:51
[2020-08-12 07:19] LABS: BASOPHILS % (AUTO) 0.4 % (0.0-2.0); EOSINOPHILS % (AUTO) 1.4 % (0.0-3.0); HEMATOCRIT 26.5 % (37.0-47.0); HEMOGLOBIN 8.3 G/DL (12.0-16.0); LYMPHOCYTES % (AUTO) 15.9 % (20.0-45.0); MEAN CORPUSCULAR VOLUME 89 FL (80-99); MONOCYTES % (AUTO) 4.7 % (1.0-10.0); NEUTROPHILS % (AUTO) 77.6 % (45.0-75.0); PLATELET COUNT 498 K/UL (150-450); RED BLOOD COUNT 2.99 M/UL (4.20-5.40); RED CELL DISTRIBUTION WIDTH 16.7 % (11.6-14.8); WHITE BLOOD COUNT 10.9 K/UL (4.8-10.8)
--- NOTE | 2020-08-12 07:23 | NUR ---
Gave report to DURAN Venegas,. Handed over care of patient.
--- NOTE | 2020-08-12 07:35 | NUR ---
NURSE NOTES: Received report from sukhwinder Simon RN. Pt is lying in bed, asleep, no sign of distress. Pt is aphasic. Tolerating Room air saturating 92%. G-tube is intact and patent running Glucerna 1.2 @ 50cc/hr. R EJ 18G running 0.45% with 20mEq KCl @ 75cc/hr and R wrist 22G are intact and patent. Skin issue are noted and dressing intact. Gallardo catheter is intact and patent. Recent labs, medication and MD orders reviewed. Bed is locked and in lowest position, bed alarm on, call light is with the pt. Will continue to monitor pt. Will continue with the plan
[2020-08-12 08:00] VITALS: BP 129/70
[2020-08-12 08:10] LABS: ALANINE AMINOTRANSFERASE 26 U/L (12-78); ALBUMIN 2.2 G/DL (3.4-5.0); ALBUMIN/GLOBULIN RATIO 0.4 (1.0-2.7); ALKALINE PHOSPHATASE 78 U/L (46-116); ANION GAP 8 mmol/L (5-15); ASPARTATE AMINO TRANSFERASE 15 U/L (15-37); BILIRUBIN,TOTAL 0.2 MG/DL (0.2-1.0); BLOOD UREA NITROGEN 11 mg/dL (7-18); CALCIUM 9.1 MG/DL (8.5-10.1); CARBON DIOXIDE 27 MMOL/L (21-32); CHLORIDE 106 MMOL/L (98-107); CREATININE 0.4 MG/DL (0.55-1.30); POTASSIUM 4.3 MMOL/L (3.5-5.1); SODIUM 141 MMOL/L (136-145)
--- NOTE | 2020-08-12 08:13 | NUR ---
RD ASSESSMENT & RECOMMENDATIONS SEE CARE ACTIVITY FOR COMPLETE ASSESSMENT DAILY ESTIMATED NEEDS: Needs based on underweight, wounds, DM 36kg 30-40 kcals/kg 1488-9598 total kcals 1.25-2 g protein/kg 45-72 g total protein 25-35ml/kcal mL/kg 900-1260 total fluid mLs NUTRITION DIAGNOSIS: Swallowing difficulty R/T dysphagia as evidenced by pt is Gtube dependent. CURRENT TF: now Glucerna 1.2 @50 ENTERAL NUTRITION RECOMMENDATIONS: Glucerna 1.2 @50ml x24 hrs to provide 1200ml, 1440 kcal, 72g pro, 966ml free H2O - Now off bipap, maintain TF at goal - Flush per MD/ HOB over 30 degrees ADDITIONAL RECOMMENDATIONS: - Per SNF: 5'3" and 78lbs/35.45kg. - Check lytes daily, replete as needed (K 3.2-> now wnl, on aldactone) - Wound care: add LINA BID when TF is at goal TF @ goal provides 100% RDI Vit C 500mg BID, Zn SO4 220mg/day for 10 days . .
--- NOTE | 2020-08-12 08:13 | NUR ---
NURSE NOTES: Spoke to pharmacist Bertha regarding vanco trough results, will continue current vanco dose as instructed.
[2020-08-12] MEDS: levETIRAcetam 500mg/5ml Liquid GT SCH ×2 (08:36→21:55)
[2020-08-12] MEDS: Pantoprazole Inj IVP SCH ×2 (08:36→21:55)
[2020-08-12] MEDS: Carvedilol 6.25mg Tab GT SCH ×2 (08:37→21:55)
[2020-08-12] MEDS: Spironolactone 25mg tab GT SCH (08:37)
[2020-08-12] MEDS: Heparin 5000 units/ml inj SUBQ SCH ×2 (08:38→21:57)
[2020-08-12] MEDS: Dakin's 0.125% Soln (Quarter Strength) 16oz TOPIC SCH (08:39)
[2020-08-12] MEDS: Vancomycin 1 GM in NS 275 ML IVPB SCH ×2 (08:51→20:36)
--- NOTE | 2020-08-12 08:54 | Infectious Diseases Prog Note ---
Assessment/Plan 69yo F with: Acute hypoxic resp failure requiring BiPAP, improved Afebrile Leukocytosis to 30, improving Pneumonia UTI Recent COVID dx 07/20/2008/05 BCx NTD UA 30-40 WBC, UCx >100k E.coli and P.mirabilis (both terrazas-S) Resp cx +MRSA (S-bactrim, doxy) COVID neg CXR: Left infrahilar and basilar infiltrate, likely pneumonia. Questionable infiltrates on the right as well. MRSA nares positive on prior admission 08/08 CXR: 1. Interval mild improvement in the left infrahilar opacity. This may represent atelectasis versus pneumonia. 2. Persistent bilateral prominent interstitial markings. This is nonspecific and may represent a mild bronchitis or pneumonitis. 2/3 BCx ordered Recent h/o COVID pneumonia 07/20/20 Stable resp status, on baseline 3L NC 07/08 COVID rapid and PCR neg 07/20 COVID PCR positive Sepsis Leukocytosis to 21 Afebrile but with fever at [facility] Lymphopenia Hypoxic w/ NC O2 requirement, r/o PNA 07/08 BCx NTD UA+, UCx <10k GNR COVID rapid test neg, PCR neg CXR: No acute process 07/14 UCx +yeast (colonizer) +RLE DVT on US 07/09 Elevated LFTs 67 / 120 Abd TTP 06/29 Abd US wnl Acute hep panel neg Cr 0.5 HIV screen neg PMH: DM CHF Dementia SNF resident Plan: Cont Zosyn #3/5 given persistent leukocytosis (abx d#02/16) - tentative end date of 08/15 Cont vanco IV #8/ for MRSA pneumonia, on discharge can transition to oral linezolid 600mg PO BID to complete rest of course, end date 08/18 BCx given fever Trend temp curve - no clear clinical correlate for single new fever, CTM Trend WBC - improving slowly 08/10 SP CTX #3 08/07 SP Zosyn #2 07/17 SP Zosyn #7 07/10 SP CTX #2 Monitor CBC/CMP Monitor temp curve, hemodynamics Monitor resp status D/w RN Thank you for this consult. [facility] will continue to follow. Subjective Allergies: Coded Allergies: ERYTHROMYCIN BASE (Verified Allergy, Unknown, 11/12/16) Tmax 101.1 Satting 100% on RA WBC 10, improving No clinical change Objective Last 24 Hour Vital Signs Date Time Temp Pulse Resp B/P (MAP) Pulse Ox O2 Delivery O2 Flow Rate FiO2 08/12/20 08:37 78 129/70 08/12/20 04:01 97.7 84 21 110/67 (81) 96 08/12/20 04:00 Room Air 08/12/20 04:00 70 08/12/20 02:00 08/12/20 00:40 100.2 08/12/20 00:00 101.1 83 20 110/66 (81) 99 08/12/20 00:00 Room Air 08/12/20 00:00 83 08/11/20 21:26 91 118/55 08/11/20 20:00 99.1 93 18 118/55 (76) 97 08/11/20 20:00 Room Air 08/11/20 19:43 94 08/11/20 16:00 Room Air 08/11/20 16:00 97.9 89 21 125/65 (85) 96 08/11/20 15:38 90 08/11/20 12:00 98.4 90 20 100/60 (73) 96 08/11/20 12:00 Room Air 08/11/20 11:46 87 08/11/20 09:27 93 117/70 Height (Feet): 5 Height (Inches): 2.00 Weight (Pounds): 85 Gen: NAD in bed HEENT: NCAT CV: RRR Pulm: CTAB Abd: Soft, NTND Ext: No c/c/e Neuro: Awake but not interactive Laboratory Tests Test 08/11/20 11:51 08/11/20 17:57 08/11/20 20:10 08/11/20 23:21 POC Whole Blood Glucose Pending 104 MG/DL (74-106) Pending White Blood Count 16.3 K/UL (4.8-10.8) H Red Blood Count 2.77 M/UL (4.20-5.40) L Hemoglobin 7.8 G/DL (12.0-16.0) L Hematocrit 24.3 % (37.0-47.0) L Mean Corpuscular Volume 88 FL (80-99) Mean Corpuscular Hemoglobin 28.2 PG (27.0-31.0) Mean Corpuscular Hemoglobin Concent 32.2 G/DL (32.0-36.0) Red Cell Distribution Width 16.6 % (11.6-14.8) H Platelet Count 461 K/UL (150-450) H Mean Platelet Volume 7.8 FL (6.5-10.1) Neutrophils (%) (Auto) 84.7 % (45.0-75.0) H Lymphocytes (%) (Auto) 9.7 % (20.0-45.0) L Monocytes (%) (Auto) 4.2 % (1.0-10.0) Eosinophils (%) (Auto) 0.8 % (0.0-3.0) Basophils (%) (Auto) 0.7 % (0.0-2.0) Test 08/12/20 06:31 08/12/20 07:00 POC Whole Blood Glucose Pending White Blood Count 10.9 K/UL (4.8-10.8) H Red Blood Count 2.99 M/UL (4.20-5.40) L Hemoglobin 8.3 G/DL (12.0-16.0) L Hematocrit 26.5 % (37.0-47.0) L Mean Corpuscular Volume 89 FL (80-99) Mean Corpuscular Hemoglobin 27.9 PG (27.0-31.0) Mean Corpuscular Hemoglobin Concent 31.5 G/DL (32.0-36.0) L Red Cell Distribution Width 16.7 % (11.6-14.8) H Platelet Count 498 K/UL (150-450) H Mean Platelet Volume 7.7 FL (6.5-10.1) Neutrophils (%) (Auto) 77.6 % (45.0-75.0) H Lymphocytes (%) (Auto) 15.9 % (20.0-45.0) L Monocytes (%) (Auto) 4.7 % (1.0-10.0) Eosinophils (%) (Auto) 1.4 % (0.0-3.0) Basophils (%) (Auto) 0.4 % (0.0-2.0) Sodium Level 141 MMOL/L (136-145) Potassium Level 4.3 MMOL/L (3.5-5.1) Chloride Level 106 MMOL/L (98-107) Carbon Dioxide Level 27 MMOL/L (21-32) Anion Gap 8 mmol/L (5-15) Blood Urea Nitrogen 11 mg/dL (7-18) Creatinine 0.4 MG/DL (0.55-1.30) L Estimat Glomerular Filtration Rate > 60 mL/min (>60) Glucose Level 115 MG/DL (74-106) H Calcium Level 9.1 MG/DL (8.5-10.1) Total Bilirubin 0.2 MG/DL (0.2-1.0) Aspartate Amino Transf (AST/SGOT) 15 U/L (15-37) Alanine Aminotransferase (ALT/SGPT) 26 U/L (12-78) Alkaline Phosphatase 78 U/L (46-116) Total Protein 7.5 G/DL (6.4-8.2) Albumin 2.2 G/DL (3.4-5.0) L Globulin 5.3 g/dL Albumin/Globulin Ratio 0.4 (1.0-2.7) L Vancomycin Level Trough 19.8 ug/mL (5.0-12.0) H Current Medications Medications (Trade) Dose Ordered Sig/Alvarado Route PRN Reason Start Time Stop Time Status Last Admin Dose Admin Acetaminophen (Tylenol) 650 mg Q4H PRN GT Mild Pain (Pain Scale 1-3) 08/05/20 11:30 09/04/20 11:29 Acetaminophen (Tylenol) 650 mg Q4H PRN GT TEMP > 100.5 08/05/20 11:45 09/04/20 11:44 08/12/20 00:05 Carvedilol (Coreg) 6.25 mg EVERY 12 HOURS GT 08/08/20 21:00 09/07/20 20:59 08/12/20 08:37 Dextrose (Dextrose 50%) 25 ml Q30M PRN IV Hypoglycemia 08/06/20 12:00 11/04/20 11:59 Dextrose (Dextrose 50%) 50 ml Q30M PRN IV Hypoglycemia 08/06/20 12:00 11/04/20 11:59 Heparin Sodium (Porcine) (Heparin 5000 units/ml) 5,000 units EVERY 12 HOURS SUBQ 08/05/20 21:00 09/19/20 20:59 08/12/20 08:38 Insulin Aspart (NovoLOG) Q6HR SUBQ 08/06/20 18:00 11/04/20 17:59 Levetiracetam (Keppra) 500 mg Q12HR GT 08/05/20 21:00 09/04/20 20:59 08/12/20 08:36 Midodrine (Pro-Amatine) 10 mg Q8HR ORAL 08/06/20 14:00 11/04/20 13:59 08/12/20 06:20 Pantoprazole (Protonix) 40 mg Q12HR IVP 08/06/20 21:00 09/05/20 08:59 08/12/20 08:36 Piperacillin Sod/ Tazobactam Sod 3.375 gm/Sodium Chloride 110 ml @ 27.5 mls/hr EVERY 8 HOURS IVPB 08/10/20 11:30 08/15/20 11:29 08/12/20 06:19 Sodium 1,000 ml @ 75 mls/hr [id number] IV 08/06/20 14:00 09/05/20 13:59 08/12/20 03:51 Sodium Hypochlorite (Dakin's Quarter Strength) 1 applic DAILY TOPIC 08/06/20 09:00 09/05/20 08:59 08/12/20 08:39 Spironolactone (Aldactone) 25 mg DAILY GT 08/09/20 09:00 09/08/20 08:59 08/12/20 08:37 Vancomycin HCl (Vanco pharmacy to dose) 1 ea DAILY PRN MISC . 08/05/20 14:00 09/04/20 13:59 Vancomycin HCl 1 gm/Sodium Chloride 275 ml @ 183.708 mls/hr Q12H IVPB 08/10/20 20:00 08/15/20 19:59 08/12/20 08:51 Beth Marsh M.D. Aug 12, 2020 08:54
[2020-08-12 12:00] VITALS: BP 122/67
[2020-08-12] MEDS ORDERED: NS 275ml ONE (13:15)
--- NOTE | 2020-08-12 13:22 | Nephrology Progress Note ---
Assessment/Plan Problem List: (1) Electrolyte imbalance (2) Sepsis (3) UTI (urinary tract infection) (4) Dehydration (5) Anemia (6) Hyperglycemia (7) Seizure disorder Assessment Patient is admitted with sepsis, leukocytosis, hypoxia Patient has evidence of UTI Electrolyte imbalances, hypokalemia Hypotension, blood pressure hovering 90 systolic Anemia Hyperglycemia Seizure disorder Plan August 12: Labs reviewed. Renal parameters stable. Remains full code. Continue per consultants. August 11: Labs reviewed. Renal parameters stable. Continue per consultants. Remains full code. August 10: Labs reviewed. Renal parameters stable. Continue her current management. August 09: Labs reviewed. Renal parameters and electrolytes stable. Continue per consultants. August 08: Labs reviewed. Renal parameters electrolytes stable. Continue to monitor electrolytes. Continue per consultants. August 07: No CHEM panel drawn today. K-Phos given. Medication list reviewed. Check labs tomorrow. Continue per consultants. IV changed to half-normal saline Start Midodrin Potassium supplement Monitor renal parameters Anemia work-up Per orders Subjective ROS Limited/Unobtainable: No Constitutional: Reports: malaise, weakness Objective Objective Last 24 Hour Vital Signs Date Time Temp Pulse Resp B/P (MAP) Pulse Ox O2 Delivery O2 Flow Rate FiO2 08/12/20 12:00 98.2 79 18 122/67 (85) 96 08/12/20 12:00 80 08/12/20 11:45 Room Air 08/12/20 09:30 98 Room Air 21 08/12/20 08:37 78 129/70 08/12/20 08:00 96.6 78 18 129/70 (89) 98 08/12/20 08:00 83 08/12/20 08:00 Room Air 08/12/20 04:01 97.7 84 21 110/67 (81) 96 08/12/20 04:00 Room Air 08/12/20 04:00 70 08/12/20 02:00 08/12/20 00:40 100.2 08/12/20 00:00 101.1 83 20 110/66 (81) 99 08/12/20 00:00 Room Air 08/12/20 00:00 83 08/11/20 21:26 91 118/55 08/11/20 20:00 99.1 93 18 118/55 (76) 97 08/11/20 20:00 Room Air 08/11/20 19:43 94 08/11/20 16:00 Room Air 08/11/20 16:00 97.9 89 21 125/65 (85) 96 08/11/20 15:38 90 Intake and Output 08/11/20 08/12/20 19:00 07:00 Intake Total 2354.83 ml 984.17 ml Output Total 1250 ml 1250 ml Balance 1104.83 ml -265.83 ml Intake Free Water 200 ml IV Total 1350.83 ml 834.17 ml Tube Feeding 804 ml 150 ml Output Urine Total 1250 ml 1250 ml Current Medications Medications (Trade) Dose Ordered Sig/Alvarado Route PRN Reason Start Time Stop Time Status Last Admin Dose Admin Acetaminophen (Tylenol) 650 mg Q4H PRN GT Mild Pain (Pain Scale 1-3) 08/05/20 11:30 09/04/20 11:29 Acetaminophen (Tylenol) 650 mg Q4H PRN GT TEMP > 100.5 08/05/20 11:45 09/04/20 11:44 08/12/20 00:05 Carvedilol (Coreg) 6.25 mg EVERY 12 HOURS GT 08/08/20 21:00 09/07/20 20:59 08/12/20 08:37 Dextrose (Dextrose 50%) 25 ml Q30M PRN IV Hypoglycemia 08/06/20 12:00 11/04/20 11:59 Dextrose (Dextrose 50%) 50 ml Q30M PRN IV Hypoglycemia 08/06/20 12:00 11/04/20 11:59 Heparin Sodium (Porcine) (Heparin 5000 units/ml) 5,000 units EVERY 12 HOURS SUBQ 08/05/20 21:00 09/19/20 20:59 08/12/20 08:38 Insulin Aspart (NovoLOG) Q6HR SUBQ 08/06/20 18:00 11/04/20 17:59 Levetiracetam (Keppra) 500 mg Q12HR GT 08/05/20 21:00 09/04/20 20:59 08/12/20 08:36 Midodrine (Pro-Amatine) 10 mg Q8HR ORAL 08/06/20 14:00 11/04/20 13:59 08/12/20 06:20 Pantoprazole (Protonix) 40 mg Q12HR IVP 08/06/20 21:00 09/05/20 08:59 08/12/20 08:36 Piperacillin Sod/ Tazobactam Sod 3.375 gm/Sodium Chloride 110 ml @ 27.5 mls/hr EVERY 8 HOURS IVPB 08/10/20 11:30 08/15/20 11:29 08/12/20 06:19 Sodium 1,000 ml @ 75 mls/hr [id number] IV 08/06/20 14:00 09/05/20 13:59 08/12/20 03:51 Sodium Hypochlorite (Dakin's Quarter Strength) 1 applic DAILY TOPIC 08/06/20 09:00 09/05/20 08:59 08/12/20 08:39 Spironolactone (Aldactone) 25 mg DAILY GT 08/09/20 09:00 09/08/20 08:59 08/12/20 08:37 Vancomycin HCl ([facility] pharmacy to dose) 1 ea DAILY PRN MISC . 08/05/20 14:00 09/04/20 13:59 Vancomycin HCl 1 gm/Sodium Chloride 275 ml @ 183.708 mls/hr Q12H IVPB 08/10/20 20:00 08/15/20 19:59 08/12/20 08:51 Laboratory Tests 08/11/20 17:57: POC Whole Blood Glucose 104 08/11/20 20:10: White Blood Count 16.3H, Red Blood Count 2.77L, Hemoglobin 7.8L, Hematocrit 24.3L, Mean Corpuscular Volume 88, Mean Corpuscular Hemoglobin 28.2, Mean Corpuscular Hemoglobin Concent 32.2, Red Cell Distribution Width 16.6H, Platelet Count 461H, Mean Platelet Volume 7.8, Neutrophils (%) (Auto) 84.7H, Lymphocytes (%) (Auto) 9.7L, Monocytes (%) (Auto) 4.2, Eosinophils (%) (Auto) 0.8, Basophils (%) (Auto) 0.7 08/11/20 23:21: POC Whole Blood Glucose [Pending] 08/12/20 06:31: POC Whole Blood Glucose [Pending] 08/12/20 07:00: White Blood Count 10.9H, Red Blood Count 2.99L, Hemoglobin 8.3L, Hematocrit 26.5L, Mean Corpuscular Volume 89, Mean Corpuscular Hemoglobin 27.9, Mean Corpuscular Hemoglobin Concent 31.5L, Red Cell Distribution Width 16.7H, Platelet Count 498H, Mean Platelet Volume 7.7, Neutrophils (%) (Auto) 77.6H, Lymphocytes (%) (Auto) 15.9L, Monocytes (%) (Auto) 4.7, Eosinophils (%) (Auto) 1.4, Basophils (%) (Auto) 0.4, Sodium Level 141, Potassium Level 4.3, Chloride Level 106, Carbon Dioxide Level 27, Anion Gap 8, Blood Urea Nitrogen 11, Creatinine 0.4L, Estimat Glomerular Filtration Rate > 60, Glucose Level 115H, Calcium Level 9.1, Total Bilirubin 0.2, Aspartate Amino Transf (AST/SGOT) 15, Alanine Aminotransferase (ALT/SGPT) 26, Alkaline Phosphatase 78, Total Protein 7.5, Albumin 2.2L, Globulin 5.3, Albumin/Globulin Ratio 0.4L, Vancomycin Level Trough 19.8H 08/12/20 11:38: POC Whole Blood Glucose [Pending] Height (Feet): 5 Height (Inches): 2.00 Weight (Pounds): 85 General Appearance: no apparent distress Cardiovascular: normal rate Respiratory/Chest: decreased breath sounds Abdomen: soft Gabriele Honeycutt MD Aug 12, 2020 13:22
--- NOTE | 2020-08-12 13:31 | Surgery Progress Note ---
Surgery Progress Note Subjective Additional Comments comfortable no n/v labs noted no fevers dressings going well Objective Last 24 Hour Vital Signs Date Time Temp Pulse Resp B/P (MAP) Pulse Ox O2 Delivery O2 Flow Rate FiO2 08/12/20 12:00 98.2 79 18 122/67 (85) 96 08/12/20 12:00 80 08/12/20 11:45 Room Air 08/12/20 09:30 98 Room Air 21 08/12/20 08:37 78 129/70 08/12/20 08:00 96.6 78 18 129/70 (89) 98 08/12/20 08:00 83 08/12/20 08:00 Room Air 08/12/20 04:01 97.7 84 21 110/67 (81) 96 08/12/20 04:00 Room Air 08/12/20 04:00 70 08/12/20 02:00 08/12/20 00:40 100.2 08/12/20 00:00 101.1 83 20 110/66 (81) 99 08/12/20 00:00 Room Air 08/12/20 00:00 83 08/11/20 21:26 91 118/55 08/11/20 20:00 99.1 93 18 118/55 (76) 97 08/11/20 20:00 Room Air 08/11/20 19:43 94 08/11/20 16:00 Room Air 08/11/20 16:00 97.9 89 21 125/65 (85) 96 08/11/20 15:38 90 I&O Intake and Output 08/11/20 08/12/20 19:00 07:00 Intake Total 2354.83 ml 984.17 ml Output Total 1250 ml 1250 ml Balance 1104.83 ml -265.83 ml Intake Free Water 200 ml IV Total 1350.83 ml 834.17 ml Tube Feeding 804 ml 150 ml Output Urine Total 1250 ml 1250 ml Dressing: saturated Cardiovascular: RSR Respiratory: decreased breath sounds Abdomen: soft, non-tender, present bowel sounds Extremities: no tenderness, no cyanosis Laboratory Tests Test 08/11/20 17:57 08/11/20 20:10 08/11/20 23:21 08/12/20 06:31 POC Whole Blood Glucose 104 MG/DL (74-106) Pending Pending White Blood Count 16.3 K/UL (4.8-10.8) H Red Blood Count 2.77 M/UL (4.20-5.40) L Hemoglobin 7.8 G/DL (12.0-16.0) L Hematocrit 24.3 % (37.0-47.0) L Mean Corpuscular Volume 88 FL (80-99) Mean Corpuscular Hemoglobin 28.2 PG (27.0-31.0) Mean Corpuscular Hemoglobin Concent 32.2 G/DL (32.0-36.0) Red Cell Distribution Width 16.6 % (11.6-14.8) H Platelet Count 461 K/UL (150-450) H Mean Platelet Volume 7.8 FL (6.5-10.1) Neutrophils (%) (Auto) 84.7 % (45.0-75.0) H Lymphocytes (%) (Auto) 9.7 % (20.0-45.0) L Monocytes (%) (Auto) 4.2 % (1.0-10.0) Eosinophils (%) (Auto) 0.8 % (0.0-3.0) Basophils (%) (Auto) 0.7 % (0.0-2.0) Test 08/12/20 07:00 08/12/20 11:38 White Blood Count 10.9 K/UL (4.8-10.8) H Red Blood Count 2.99 M/UL (4.20-5.40) L Hemoglobin 8.3 G/DL (12.0-16.0) L Hematocrit 26.5 % (37.0-47.0) L Mean Corpuscular Volume 89 FL (80-99) Mean Corpuscular Hemoglobin 27.9 PG (27.0-31.0) Mean Corpuscular Hemoglobin Concent 31.5 G/DL (32.0-36.0) L Red Cell Distribution Width 16.7 % (11.6-14.8) H Platelet Count 498 K/UL (150-450) H Mean Platelet Volume 7.7 FL (6.5-10.1) Neutrophils (%) (Auto) 77.6 % (45.0-75.0) H Lymphocytes (%) (Auto) 15.9 % (20.0-45.0) L Monocytes (%) (Auto) 4.7 % (1.0-10.0) Eosinophils (%) (Auto) 1.4 % (0.0-3.0) Basophils (%) (Auto) 0.4 % (0.0-2.0) Sodium Level 141 MMOL/L (136-145) Potassium Level 4.3 MMOL/L (3.5-5.1) Chloride Level 106 MMOL/L (98-107) Carbon Dioxide Level 27 MMOL/L (21-32) Anion Gap 8 mmol/L (5-15) Blood Urea Nitrogen 11 mg/dL (7-18) Creatinine 0.4 MG/DL (0.55-1.30) L Estimat Glomerular Filtration Rate > 60 mL/min (>60) Glucose Level 115 MG/DL (74-106) H Calcium Level 9.1 MG/DL (8.5-10.1) Total Bilirubin 0.2 MG/DL (0.2-1.0) Aspartate Amino Transf (AST/SGOT) 15 U/L (15-37) Alanine Aminotransferase (ALT/SGPT) 26 U/L (12-78) Alkaline Phosphatase 78 U/L (46-116) Total Protein 7.5 G/DL (6.4-8.2) Albumin 2.2 G/DL (3.4-5.0) L Globulin 5.3 g/dL Albumin/Globulin Ratio 0.4 (1.0-2.7) L Vancomycin Level Trough 19.8 ug/mL (5.0-12.0) H POC Whole Blood Glucose Pending Plan Problems: (1) Leukocytosis Assessment & Plan: (1) Fever (2) Leukocytosis Assessment & Plan: on abx id input appreciated wounds not infected nutrition (3) Tachycardia (4) Decubitus skin ulcer (5) Pyelonephritis (6) Malnutrition (7) Sepsis Assessment & Plan: ill appearing poor skin turgor leukocytosis anemia h/h low trending prbc prn Needs based on underweight, DM 35.5kg 30-40 kcals/kg 8125-0915 total kcals 1.25-2 g protein/kg 44-71 g total protein 25-35ml/kcal mL/kg 888-1243 total fluid mLs NUTRITION DIAGNOSIS: Swallowing difficulty R/T dysphagia as evidenced by pt is Gtube dependent. ENTERAL NUTRITION RECOMMENDATIONS: Glucerna 1.2 @50ml x24 hrs to provide 1200ml, 1440 kcal, 72g pro, 966ml free H2O - As able rec carb control formula for h/o DM. - Start @30ml/hr for 6 hrs, advance as tolerated 10ml/hr q4-6 hrs to goal. - Flush per MD/ HOB over 30 degrees ADDITIONAL RECOMMENDATIONS: - Per SNF: 5'3" and 78lbs/35.45kg. - Check lytes daily, replete as needed - A1c for eval of glycemic control - Wound care: advanced per RN, f/up with WC RN. Add LINA BID w/ GT, Vit C 250mg BID Assessment & Plan: leukocytosis lactic acidosis malnutrition underweight bmi 13 micro noted on abx as per ID cont abx wounds unlikely etiology will follow with local care and evaluation to ensure improving thank you There is a slight degree of image degradation due to motion artifact. The right upper lobe is largely clear following may be some interstitial septal thickening in the apex. The right middle lobe is clear. The right lower lobe demonstrates some atelectasis at the right lung base. There is also a focal 6 mm nodular opacity, image 50 series 5. There is a vague mosaic attenuation pattern. Left upper lobe demonstrates scattered areas of mosaic attenuation superiorly image 10 of series 5 demonstrates a 3 mm left upper lobe nodule.. Irregular consolidative opacities are seen in the inferior left upper lobe. More extensive consolidation in a patchy and irregular distribution are seen in the left lower lobe. There is a small left pleural effusion. The heart is upper limits of normal in size. The ascending thoracic aorta is mildly ectatic. No mediastinal or hilar mass or adenopathy. Unremarkable. No axillary or chest wall mass or adenopathy demonstrated. The bones are unremarkable except for minimal degenerative spondylosis changes and slight anterior bowing of the sternum. The included lung bases demonstrate a gastrostomy which appears well-positioned. There is trace ascites Impression: Opacities in the left lower lobe and also to a lesser extent in the left upper lobe and minimally in the right lower lobe. Appearance is consistent with consolidation rather than mass. Most likely represents pneumonia, appearance nonspecific as regards etiology. Patchy pulmonary edema also possible, among other possibilities Small left pleural effusion Bilateral small nodules, as described. No further follow-up necessary if there are no risk factors for lung carcinoma. There are significant risk factors, then short interval follow-up CT in 6-12 months is recommended Trace ascites (2) Fever (3) Decubitus skin ulcer Assessment & Plan: Emaciated pt whom [presented on admission with Contractures, GT and Multiple Pressure Injuries. DTPI Thoracic Spine(L)1.4cm x (W)0.9cm. Base of Pressure Injury is indurated, Pupuric with surrounding maroon borders. Full Thickness stage 4 Sacral Pressure Injury(L)4.5cm x (W)3.7cm x(D)2.5cm, Undermined Borders clockwise 12-6 by 3.1cm@12o'clock. Base of wound is arleen. Bone is palpable at base of wound. Scattered slough along loose edges. Small amt serous exudate noted. Wound is malodorous. Non- Blanching erythema without induration periwound. Full thickness stage 4 Pressure Injury L trochanter(L)6.5cm x (W)9cm x 1.4cm. Undermining clockwise 7-5 by 2.6cm @12o'clock. Base of wound 60% fibrinous slough, 40% moist and pink. Bone exposure at base of wound. Edges are detached with scattered slough along borders. Small amt seropurulent exudate noted. Wound is malodorous. Periwound is maroon and indurated. Unstageable Pressure Injury R heel (L)0.6cm x (W)0.6cm.Stable dry eschar with attached edges. Surrounding Heel is boggy with Non-Blanchable erythema. DTPI lateral R Malleolus (L)1.5cm x (W)2.2cm. Base of wound is maroon and fluctuant. No evidence of further skin breakdown periwound. Unstageable Pressure Injury Dorsal R 1st metatarsal(L)0.8cm x (W)1.2cm. Dry eschar with marginal erythema along adherent borders Periwound is erythematous without fluctuance or induration. Non-Blanchable erythema with fluctuance distal/lateral L foot (L)1cm x (W)1cm. Unstageable Pressure Injury L Hallux (L)2.2cm x (W)1.5cm. Dry eschar with surrounding non-blanchable erythema.with fluctuance. Unstageable Pressure Injury Achilles L foot (L)1.5cm x (W)1.5 cm. Stable dry eschar with surrounding Non-blanchable erythema extending into plantar aspect of L heel. L heel is boggy.. Tx.Plan: Apply Cavilon Skin Barrier to Thoracic DTPI . Cover with Optifoam drsg. Change every 7 days and prn. Cleanse Sacral Wound with Dakin's 0.25% Nicki. Loosely pack wound with Dakin's moistened Kerlix. Apply Triad Paste periwound. Cover with Optifoam drsg Daily and prn. Cleanse L trochanteric Wound with Dakin's 0.25% nicki. Loosely pack with Dakin's moistened Kerlix. Apply Triad Paste Periwound. Cover with Optifoam drsg Daily and prn. Apply Betadine to Necrotic areas of L Foot . Cover each site with Optifoam drsg. Change every 3 days and prn. Apply Betadine to To Pressure Injuires R Foot. Cover each site with Optifoam drsgs. Change every 3 days and prn. Reposition at least every 2hours or as tolerated. Off-load heels with Pillow. APM/SOLOMON Mattress overlay. (4) Sepsis (5) Malnutrition Chao Ovalle Aug 12, 2020 13:31
--- NOTE | 2020-08-12 14:33 | NUR ---
NURSE NOTES: Patient given bed bath, dressings changed, linen changed, tolerated well. Patient in bed in locked and lowest position, high fowlers, tube feeding running as ordered.
[2020-08-12 16:00] VITALS: BP 130/66
--- NOTE | 2020-08-12 19:35 | NUR ---
NURSE NOTES: Received patient from DURAN Venegas under the care of Dr. Abarca for [facility] admitting dx of Suni MURPHY. Patient noted full code status and allergy to Arithromicin. Fall, aspiration and isolation precaution observed and maintained at all times. Patient noted tolerating room air well. Will continue to monitor.
--- NOTE | 2020-08-12 19:40 | NUR ---
NURSE HAND-OFF REPORT: Important Events on Shift:None Patient Status: Full code Diet: Glucerna 1.2 @ 50cc/hr Pending Orders: N Pending Results/Labs:N Pending notification:N Latest Vital Signs: Temperature 98.1 , Pulse 85 , B/P 130 /66 , Respiratory Rate 18 , O2 SAT 97 , Bi-pap, O2 Flow Rate 3.0 . Vital Sign Comment: stable EKG Rhythm: Sinus Rhythm Rhythm change?: N MD Notified?: Y -Dr Rima MENDEZ Response: No New Orders Received Latest Huggins Fall Score: 50 Fall Risk: High Risk Safety Measures: Call light Within Reach, Bed Alarm Zone 1, Side Rails Side Rails x3, Bed position Low and Locked. Fall Precautions: Yellow Socks Yellow Gown Door Sign Patient Fall Education Report given to DURAN Nathan.
[2020-08-12 20:00] VITALS: BP 125/66
--- NOTE | 2020-08-12 21:00 | NUR ---
NURSE NOTES: Patient noted asleep, no acute distress noted. Will continue to monitor
--- NOTE | 2020-08-12 23:10 | NUR ---
NURSE NOTES: Seen and examined by GREG Ochoa at this time. Continue with current plan of care.
--- NOTE | 2020-08-12 23:31 | General Progress Note ---
Subjective Constitutional: Reports: no symptoms HEENT: Reports: no symptoms Cardiovascular: Reports: no symptoms Respiratory: Reports: no symptoms Gastrointestinal/Abdominal: Reports: no symptoms Genitourinary: Reports: no symptoms Neurologic/Psychiatric: Reports: no symptoms Endocrine: Reports: no symptoms Hematologic/Lymphatic: Reports: no symptoms Allergies: Coded Allergies: ERYTHROMYCIN BASE (Verified Allergy, Unknown, 11/12/16) Objective Last 24 Hour Vital Signs Date Time Temp Pulse Resp B/P (MAP) Pulse Ox O2 Delivery O2 Flow Rate FiO2 08/12/20 21:55 86 125/66 08/12/20 20:00 Room Air 08/12/20 20:00 98.2 86 18 125/66 (85) 98 08/12/20 19:22 97 Room Air 08/12/20 19:01 85 08/12/20 16:00 Room Air 08/12/20 16:00 85 08/12/20 16:00 98.1 88 18 130/66 (87) 98 08/12/20 12:00 98.2 79 18 122/67 (85) 96 08/12/20 12:00 80 08/12/20 11:45 Room Air 08/12/20 09:30 98 Room Air 08/12/20 08:37 78 129/70 08/12/20 08:00 96.6 78 18 129/70 (89) 98 08/12/20 08:00 83 08/12/20 08:00 Room Air 08/12/20 04:01 97.7 84 21 110/67 (81) 96 08/12/20 04:00 Room Air 08/12/20 04:00 70 08/12/20 02:00 08/12/20 00:40 100.2 08/12/20 00:00 101.1 83 20 110/66 (81) 99 08/12/20 00:00 Room Air 08/12/20 00:00 83 Intake and Output 08/11/20 08/12/20 19:00 07:00 Intake Total 2354.83 ml 984.17 ml Output Total 1250 ml 1250 ml Balance 1104.83 ml -265.83 ml Intake Free Water 200 ml IV Total 1350.83 ml 834.17 ml Tube Feeding 804 ml 150 ml Output Urine Total 1250 ml 1250 ml Laboratory Tests 08/12/20 06:31: POC Whole Blood Glucose [Pending] 08/12/20 07:00: White Blood Count 10.9H, Red Blood Count 2.99L, Hemoglobin 8.3L, Hematocrit 26.5L, Mean Corpuscular Volume 89, Mean Corpuscular Hemoglobin 27.9, Mean Corpuscular Hemoglobin Concent 31.5L, Red Cell Distribution Width 16.7H, Platelet Count 498H, Mean Platelet Volume 7.7, Neutrophils (%) (Auto) 77.6H, Lymphocytes (%) (Auto) 15.9L, Monocytes (%) (Auto) 4.7, Eosinophils (%) (Auto) 1.4, Basophils (%) (Auto) 0.4, Sodium Level 141, Potassium Level 4.3, Chloride Level 106, Carbon Dioxide Level 27, Anion Gap 8, Blood Urea Nitrogen 11, Creatinine 0.4L, Estimat Glomerular Filtration Rate > 60, Glucose Level 115H, Calcium Level 9.1, Total Bilirubin 0.2, Aspartate Amino Transf (AST/SGOT) 15, Alanine Aminotransferase (ALT/SGPT) 26, Alkaline Phosphatase 78, Total Protein 7.5, Albumin 2.2L, Globulin 5.3, Albumin/Globulin Ratio 0.4L, Vancomycin Level Trough 19.8H 08/12/20 11:38: POC Whole Blood Glucose [Pending] Height (Feet): 5 Height (Inches): 2.00 Weight (Pounds): 85 General Appearance: no apparent distress, alert, lethargic EENT: normal ENT inspection Neck: supple Cardiovascular: normal rate, regular rhythm, no gallop/murmur, no JVD Respiratory/Chest: lungs clear, no respiratory distress, no accessory muscle use, decreased breath sounds, rhonchi - left Abdomen: normal bowel sounds, non tender, soft, no organomegaly, no mass Extremities: non-tender Neurologic: alert, unresponsive Assessment/Plan Status Narrative Patient is awake alert eyes closed but respond to audio verbal and tactile stimuli vital vital signs vital signs are stable no chest auscultation revealed decline in rhonchi cough and sputum production WBC now are in normal range patient is on piperacillin plus tazobactam and vancomycin however clinically she seems unchanged since the time she came to the hospital repeat laboratory tests will be done in a.m. as a Gale Royal MD, MD Aug 12, 2020 23:31
[2020-08-13] VITALS: BP 110/58
[2020-08-13 04:00] VITALS: BP 118/64
--- NOTE | 2020-08-13 05:00 | NUR ---
NURSE NOTES: Patient asleep. Noted no acute distress noted. Will continue to monitor.
[2020-08-13 05:08] LABS: HEMATOCRIT 25.2 % (37.0-47.0); HEMOGLOBIN 7.9 G/DL (12.0-16.0); MEAN CORPUSCULAR VOLUME 87 FL (80-99); PLATELET COUNT 499 K/UL (150-450); RED BLOOD COUNT 2.89 M/UL (4.20-5.40); RED CELL DISTRIBUTION WIDTH 16.6 % (11.6-14.8); WHITE BLOOD COUNT 12.4 K/UL (4.8-10.8)
[2020-08-13] MEDS: 1/2NS w/KCl 20mEq 1000ml 1,000 ML IV SCH ×2 (05:50→20:43)
[2020-08-13] MEDS: Piperacillin/Tazobactam 3.375 GM in NS 110 ML IVPB SCH ×3 (05:59→22:09)
[2020-08-13] MEDS: Midodrine 10mg tab ORAL SCH ×3 (06:00→22:09)
[2020-08-13] MEDS: NovoLOG Insulin Flexpen SUBQ SCH ×5 (06:00→23:51)
--- NOTE | 2020-08-13 06:33 | Hematology/Onc Progress Note ---
Assessment/Plan Assessment/Plan Assessment and Recs # Leukocytosis with likely sepsis due to pna --> ON ABX vanc/zosyn-->vanc/ctx --> is on ivfs --> abx as per ID --> imaging noted --> wbc 28-->16->15-->16 # Right lower extremity dvt --> h/h to low for anticoag --> consider repeat lower duplex at this time-->neg dvt 08/06 --> consider ivcf # Anemia due to chronic disease --> hgb 10-->8.2-->7.4 # Respiratory distress --> r/o covid --> per pulm # Dysphagia s/p peg # CVA hx # HL --> lipitor and asa # Tachycardia --> ivfs should improve # Dvt ppx heparin sq Appreciate consultation and iraida Rn Subjective Allergies: Coded Allergies: ERYTHROMYCIN BASE (Verified Allergy, Unknown, 11/12/16) All Systems: reviewed and negative except above Subjective 08/09 asleep, on glucerna, meds noted, labs reviewed / labs reviewed, meds noted, no bleeding, iraida rn, on fluids / labs reviewed, meds noted, hgb 7.4, transfuse on prn basis / meds reviewed, labs pending from am, is on abx 2/ meds reviewed, hgb is improved, meds noted, abx Objective Objective Current Medications Medications (Trade) Dose Ordered Sig/Alvarado Route PRN Reason Start Time Stop Time Status Last Admin Dose Admin Acetaminophen (Tylenol) 650 mg Q4H PRN GT Mild Pain (Pain Scale 1-3) 08/05/20 11:30 09/04/20 11:29 Acetaminophen (Tylenol) 650 mg Q4H PRN GT TEMP > 100.5 08/05/20 11:45 09/04/20 11:44 08/12/20 00:05 Carvedilol (Coreg) 6.25 mg EVERY 12 HOURS GT 08/08/20 21:00 09/07/20 20:59 08/12/20 21:55 Dextrose (Dextrose 50%) 25 ml Q30M PRN IV Hypoglycemia 08/06/20 12:00 11/04/20 11:59 Dextrose (Dextrose 50%) 50 ml Q30M PRN IV Hypoglycemia 08/06/20 12:00 11/04/20 11:59 Heparin Sodium (Porcine) (Heparin 5000 units/ml) 5,000 units EVERY 12 HOURS SUBQ 08/05/20 21:00 09/19/20 20:59 08/12/20 21:57 Insulin Aspart (NovoLOG) Q6HR SUBQ 08/06/20 18:00 11/04/20 17:59 Levetiracetam (Keppra) 500 mg Q12HR GT 08/05/20 21:00 09/04/20 20:59 08/12/20 21:55 Midodrine (Pro-Amatine) 10 mg Q8HR ORAL 08/06/20 14:00 11/04/20 13:59 08/12/20 14:05 Pantoprazole (Protonix) 40 mg Q12HR IVP 08/06/20 21:00 09/05/20 08:59 08/12/20 21:55 Piperacillin Sod/ Tazobactam Sod 3.375 gm/Sodium Chloride 110 ml @ 27.5 mls/hr EVERY 8 HOURS IVPB 08/10/20 11:30 08/15/20 11:29 08/13/20 05:59 Sodium 1,000 ml @ 75 mls/hr [id number] IV 08/06/20 14:00 09/05/20 13:59 08/13/20 05:50 Sodium Hypochlorite (Dakin's Quarter Strength) 1 applic DAILY TOPIC 08/06/20 09:00 09/05/20 08:59 08/12/20 08:39 Spironolactone (Aldactone) 25 mg DAILY GT 08/09/20 09:00 09/08/20 08:59 08/12/20 08:37 Vancomycin HCl (Vanco pharmacy to dose) 1 ea DAILY PRN MISC . 08/05/20 14:00 09/04/20 13:59 Vancomycin HCl 1 gm/Sodium Chloride 275 ml @ 183.708 mls/hr Q12H IVPB 08/10/20 20:00 08/15/20 19:59 08/12/20 20:36 Last 24 Hour Vital Signs Date Time Temp Pulse Resp B/P (MAP) Pulse Ox O2 Delivery O2 Flow Rate FiO2 08/13/20 04:00 Room Air 08/13/20 04:00 76 08/13/20 04:00 97.9 64 18 118/64 (82) 98 08/13/20 00:00 97.7 81 18 110/58 (75) 98 08/13/20 00:00 Room Air 08/12/20 23:14 83 08/12/20 21:55 86 125/66 08/12/20 20:00 Room Air 08/12/20 20:00 98.2 86 18 125/66 (85) 98 08/12/20 19:22 97 Room Air 21 08/12/20 19:01 85 08/12/20 16:00 Room Air 08/12/20 16:00 85 08/12/20 16:00 98.1 88 18 130/66 (87) 98 08/12/20 12:00 98.2 79 18 122/67 (85) 96 08/12/20 12:00 80 08/12/20 11:45 Room Air 08/12/20 09:30 98 Room Air 08/12/20 08:37 78 129/70 08/12/20 08:00 96.6 78 18 129/70 (89) 98 08/12/20 08:00 83 08/12/20 08:00 Room Air 08/12/20 04:01 97.7 84 21 110/67 (81) 96 08/12/20 04:00 Room Air 08/12/20 04:00 70 08/12/20 02:00 08/12/20 00:40 100.2 08/12/20 00:00 101.1 83 20 110/66 (81) 99 08/12/20 00:00 Room Air 08/12/20 00:00 83 08/11/20 21:26 91 118/55 08/11/20 20:00 99.1 93 18 118/55 (76) 97 08/11/20 20:00 Room Air 08/11/20 19:43 94 08/11/20 16:00 Room Air 08/11/20 16:00 97.9 89 21 125/65 (85) 96 08/11/20 15:38 90 08/11/20 12:00 98.4 90 20 100/60 (73) 96 08/11/20 12:00 Room Air 08/11/20 11:46 87 08/11/20 09:27 93 117/70 08/11/20 08:00 Room Air 08/11/20 08:00 98.2 93 19 117/70 (86) 94 08/11/20 08:00 94 08/11/20 07:00 94 Room Air 21 Intake and Output 08/12/20 08/13/20 19:00 07:00 Intake Total 2012.416 ml 650 ml Output Total 2300 ml Balance -287.584 ml 650 ml Intake Free Water 150 ml IV Total 1412.416 ml Tube Feeding 600 ml 500 ml Output Urine Total 2300 ml Labs Test 08/10/20 07:35 08/10/20 11:28 08/10/20 18:20 08/10/20 23:38 White Blood Count 18.7 K/UL (4.8-10.8) Red Blood Count 3.02 M/UL (4.20-5.40) Hemoglobin 8.4 G/DL (12.0-16.0) Hematocrit 26.5 % (37.0-47.0) Mean Corpuscular Volume 88 FL (80-99) Mean Corpuscular Hemoglobin 27.9 PG (27.0-31.0) Mean Corpuscular Hemoglobin Concent 31.8 G/DL (32.0-36.0) Red Cell Distribution Width 15.6 % (11.6-14.8) Platelet Count 388 K/UL (150-450) Mean Platelet Volume 7.5 FL (6.5-10.1) Neutrophils (%) (Auto) % (45.0-75.0) Lymphocytes (%) (Auto) % (20.0-45.0) Monocytes (%) (Auto) % (1.0-10.0) Eosinophils (%) (Auto) % (0.0-3.0) Basophils (%) (Auto) % (0.0-2.0) Differential Total Cells Counted 100 Neutrophils % (Manual) 86 % (45-75) Lymphocytes % (Manual) 8 % (20-45) Monocytes % (Manual) 4 % (1-10) Eosinophils % (Manual) 2 % (0-3) Basophils % (Manual) 0 % (0-2) Band Neutrophils 0 % (0-8) Platelet Estimate Adequate Platelet Morphology Normal Polychromasia 1+ Hypochromasia 1+ Anisocytosis 1+ Vancomycin Level Trough 10.4 ug/mL (5.0-12.0) POC Whole Blood Glucose 111 MG/DL (74-106) 122 MG/DL (74-106) 115 MG/DL (74-106) Test 08/11/20 02:50 08/11/20 05:08 08/11/20 11:51 08/11/20 17:57 White Blood Count 15.4 K/UL (4.8-10.8) Red Blood Count 2.84 M/UL (4.20-5.40) Hemoglobin 7.9 G/DL (12.0-16.0) Hematocrit 25.2 % (37.0-47.0) Mean Corpuscular Volume 89 FL (80-99) Mean Corpuscular Hemoglobin 27.7 PG (27.0-31.0) Mean Corpuscular Hemoglobin Concent 31.3 G/DL (32.0-36.0) Red Cell Distribution Width 15.9 % (11.6-14.8) Platelet Count 405 K/UL (150-450) Mean Platelet Volume 6.7 FL (6.5-10.1) Neutrophils (%) (Auto) % (45.0-75.0) Lymphocytes (%) (Auto) % (20.0-45.0) Monocytes (%) (Auto) % (1.0-10.0) Eosinophils (%) (Auto) % (0.0-3.0) Basophils (%) (Auto) % (0.0-2.0) Sodium Level 138 MMOL/L (136-145) Potassium Level 4.5 MMOL/L (3.5-5.1) Chloride Level 104 MMOL/L (98-107) Carbon Dioxide Level 26 MMOL/L (21-32) Anion Gap 8 mmol/L (5-15) Blood Urea Nitrogen 11 mg/dL (7-18) Creatinine 0.4 MG/DL (0.55-1.30) Estimat Glomerular Filtration Rate > 60 mL/min (>60) Glucose Level 109 MG/DL (74-106) Calcium Level 8.8 MG/DL (8.5-10.1) POC Whole Blood Glucose 119 MG/DL (74-106) 104 MG/DL (74-106) Test 08/11/20 20:10 08/11/20 23:21 2/3/21 06:31 08/12/20 07:00 White Blood Count 16.3 K/UL (4.8-10.8) 10.9 K/UL (4.8-10.8) Red Blood Count 2.77 M/UL (4.20-5.40) 2.99 M/UL (4.20-5.40) Hemoglobin 7.8 G/DL (12.0-16.0) 8.3 G/DL (12.0-16.0) Hematocrit 24.3 % (37.0-47.0) 26.5 % (37.0-47.0) Mean Corpuscular Volume 88 FL (80-99) 89 FL (80-99) Mean Corpuscular Hemoglobin 28.2 PG (27.0-31.0) 27.9 PG (27.0-31.0) Mean Corpuscular Hemoglobin Concent 32.2 G/DL (32.0-36.0) 31.5 G/DL (32.0-36.0) Red Cell Distribution Width 16.6 % (11.6-14.8) 16.7 % (11.6-14.8) Platelet Count 461 K/UL (150-450) 498 K/UL (150-450) Mean Platelet Volume 7.8 FL (6.5-10.1) 7.7 FL (6.5-10.1) Neutrophils (%) (Auto) 84.7 % (45.0-75.0) 77.6 % (45.0-75.0) Lymphocytes (%) (Auto) 9.7 % (20.0-45.0) 15.9 % (20.0-45.0) Monocytes (%) (Auto) 4.2 % (1.0-10.0) 4.7 % (1.0-10.0) Eosinophils (%) (Auto) 0.8 % (0.0-3.0) 1.4 % (0.0-3.0) Basophils (%) (Auto) 0.7 % (0.0-2.0) 0.4 % (0.0-2.0) Sodium Level 141 MMOL/L (136-145) Potassium Level 4.3 MMOL/L (3.5-5.1) Chloride Level 106 MMOL/L (98-107) Carbon Dioxide Level 27 MMOL/L (21-32) Anion Gap 8 mmol/L (5-15) Blood Urea Nitrogen 11 mg/dL (7-18) Creatinine 0.4 MG/DL (0.55-1.30) Estimat Glomerular Filtration Rate > 60 mL/min (>60) Glucose Level 115 MG/DL (74-106) Calcium Level 9.1 MG/DL (8.5-10.1) Total Bilirubin 0.2 MG/DL (0.2-1.0) Aspartate Amino Transf (AST/SGOT) 15 U/L (15-37) Alanine Aminotransferase (ALT/SGPT) 26 U/L (12-78) Alkaline Phosphatase 78 U/L (46-116) Total Protein 7.5 G/DL (6.4-8.2) Albumin 2.2 G/DL (3.4-5.0) Globulin 5.3 g/dL Albumin/Globulin Ratio 0.4 (1.0-2.7) Vancomycin Level Trough 19.8 ug/mL (5.0-12.0) Test 08/12/20 11:38 08/13/20 00:07 08/13/20 03:10 08/13/20 05:41 POC Whole Blood Glucose 104 MG/DL (74-106) 113 MG/DL (74-106) White Blood Count 12.4 K/UL (4.8-10.8) Red Blood Count 2.89 M/UL (4.20-5.40) Hemoglobin 7.9 G/DL (12.0-16.0) Hematocrit 25.2 % (37.0-47.0) Mean Corpuscular Volume 87 FL (80-99) Mean Corpuscular Hemoglobin 27.2 PG (27.0-31.0) Mean Corpuscular Hemoglobin Concent 31.2 G/DL (32.0-36.0) Red Cell Distribution Width 16.6 % (11.6-14.8) Platelet Count 499 K/UL (150-450) Mean Platelet Volume 7.0 FL (6.5-10.1) Neutrophils (%) (Auto) % (45.0-75.0) Lymphocytes (%) (Auto) % (20.0-45.0) Monocytes (%) (Auto) % (1.0-10.0) Eosinophils (%) (Auto) % (0.0-3.0) Basophils (%) (Auto) % (0.0-2.0) Height (Feet): 5 Height (Inches): 2.00 Weight (Pounds): 85 Objective Physical Exam Sp02 EP Interpretation: reviewed, normal General Appearance: no apparent distress, non-verbal Head: normocephalic, atraumatic ENT: hearing grossly normal, no angioedema Respiratory: chest non-tender, lungs clear, normal breath sounds,++bipap Cardiovascular: no edema, tachycardia Gastrointestinal: normal bowel sounds, non tender, soft, ++gt Rectal: deferred Musculoskeletal: normal inspection Neurologic: alert, motor strength/tone normal, no focal defects Psychiatric: mood/affect normal Skin: other - See RN skin exam. Lymphatic: no adenopathy Gu: valderrama+++ Nate Begum MD Aug 13, 2020 06:33
--- NOTE | 2020-08-13 07:25 | NUR ---
NURSE HAND-OFF REPORT: Important Events on Shift:- Patient Status: Stable Diet: GT Pending Orders: Pending Results/Labs: Pending MD notification: Latest Vital Signs: Temperature 97.9 , Pulse 64 , B/P 118 /64 , Respiratory Rate 18 , O2 SAT 98 , Bi-pap, O2 Flow Rate 3.0 . Vital Sign Comment: WNL EKG Rhythm: Sinus Rhythm Rhythm change?: N MD Notified?: Y -Dr Rima MENDEZ Response: No New Orders Received Latest Huggins Fall Score: 50 Fall Risk: High Risk Safety Measures: Call light Within Reach, Bed Alarm Zone 1, Side Rails Side Rails x3, Bed position Low and Locked. Fall Precautions: Yellow Socks Yellow Gown Door Sign Patient Fall Education Report given to DURAN Cuellar.
[2020-08-13 08:00] VITALS: BP 121/68
--- NOTE | 2020-08-13 08:13 | Surgery Progress Note ---
Surgery Progress Note Subjective Additional Comments afebrile, HD stable labs noted micro reviewed comfortable appearing no n/v Objective Last 24 Hour Vital Signs Date Time Temp Pulse Resp B/P (MAP) Pulse Ox O2 Delivery O2 Flow Rate FiO2 08/13/20 04:00 Room Air 08/13/20 04:00 76 08/13/20 04:00 97.9 64 18 118/64 (82) 98 08/13/20 00:00 97.7 81 18 110/58 (75) 98 08/13/20 00:00 Room Air 08/12/20 23:14 83 08/12/20 21:55 86 125/66 08/12/20 20:00 Room Air 08/12/20 20:00 98.2 86 18 125/66 (85) 98 08/12/20 19:22 97 Room Air 08/12/20 19:01 85 08/12/20 16:00 Room Air 08/12/20 16:00 85 08/12/20 16:00 98.1 88 18 130/66 (87) 98 08/12/20 12:00 98.2 79 18 122/67 (85) 96 08/12/20 12:00 80 08/12/20 11:45 Room Air 08/12/20 09:30 98 Room Air 08/12/20 08:37 78 129/70 I&O Intake and Output 08/12/20 08/13/20 19:00 07:00 Intake Total 2012.416 ml 700 ml Output Total 2300 ml 1900 ml Balance -287.584 ml -1200 ml Intake Free Water 150 ml IV Total 1412.416 ml Tube Feeding 600 ml 550 ml Output Urine Total 2300 ml 1900 ml Dressing: other Wound: other Cardiovascular: RSR Respiratory: decreased breath sounds Abdomen: soft, non-tender, present bowel sounds, non-distended Extremities: no tenderness, no cyanosis Laboratory Tests Test 08/12/20 11:38 08/13/20 00:07 08/13/20 03:10 08/13/20 05:41 POC Whole Blood Glucose Pending 104 MG/DL (74-106) 113 MG/DL (74-106) H White Blood Count 12.4 K/UL (4.8-10.8) H Red Blood Count 2.89 M/UL (4.20-5.40) L Hemoglobin 7.9 G/DL (12.0-16.0) L Hematocrit 25.2 % (37.0-47.0) L Mean Corpuscular Volume 87 FL (80-99) Mean Corpuscular Hemoglobin 27.2 PG (27.0-31.0) Mean Corpuscular Hemoglobin Concent 31.2 G/DL (32.0-36.0) L Red Cell Distribution Width 16.6 % (11.6-14.8) H Platelet Count 499 K/UL (150-450) H Mean Platelet Volume 7.0 FL (6.5-10.1) Neutrophils (%) (Auto) % (45.0-75.0) Lymphocytes (%) (Auto) % (20.0-45.0) Monocytes (%) (Auto) % (1.0-10.0) Eosinophils (%) (Auto) % (0.0-3.0) Basophils (%) (Auto) % (0.0-2.0) Plan Problems: (1) Leukocytosis Assessment & Plan: (1) Fever (2) Leukocytosis Assessment & Plan: on abx id input appreciated wounds not infected nutrition (3) Tachycardia (4) Decubitus skin ulcer (5) Pyelonephritis (6) Malnutrition (7) Sepsis Assessment & Plan: ill appearing poor skin turgor leukocytosis anemia h/h low trending prbc prn Needs based on underweight, DM 35.5kg 30-40 kcals/kg 2595-0022 total kcals 1.25-2 g protein/kg 44-71 g total protein 25-35ml/kcal mL/kg [phone] total fluid mLs NUTRITION DIAGNOSIS: Swallowing difficulty R/T dysphagia as evidenced by pt is Gtube dependent. ENTERAL NUTRITION RECOMMENDATIONS: Glucerna 1.2 @50ml x24 hrs to provide 1200ml, 1440 kcal, 72g pro, 966ml free H2O - As able rec carb control formula for h/o DM. - Start @30ml/hr for 6 hrs, advance as tolerated 10ml/hr q4-6 hrs to goal. - Flush per MD/ HOB over 30 degrees ADDITIONAL RECOMMENDATIONS: - Per SNF: 5'3" and 78lbs/35.45kg. - Check lytes daily, replete as needed - A1c for eval of glycemic control - Wound care: advanced per RN, f/up with WC RN. Add LINA BID w/ GT, Vit C 250mg BID Assessment & Plan: leukocytosis lactic acidosis malnutrition underweight bmi 13 micro noted on abx as per ID cont abx wounds unlikely etiology will follow with local care and evaluation to ensure improving thank you There is a slight degree of image degradation due to motion artifact. The right upper lobe is largely clear following may be some interstitial septal thickening in the apex. The right middle lobe is clear. The right lower lobe demonstrates some atelectasis at the right lung base. There is also a focal 6 mm nodular opacity, image 50 series 5. There is a vague mosaic attenuation pattern. Left upper lobe demonstrates scattered areas of mosaic attenuation superiorly image 10 of series 5 demonstrates a 3 mm left upper lobe nodule.. Irregular consolidative opacities are seen in the inferior left upper lobe. More extensive consolidation in a patchy and irregular distribution are seen in the left lower lobe. There is a small left pleural effusion. The heart is upper limits of normal in size. The ascending thoracic aorta is mildly ectatic. No mediastinal or hilar mass or adenopathy. Unremarkable. No axillary or chest wall mass or adenopathy demonstrated. The bones are unremarkable except for minimal degenerative spondylosis changes and slight anterior bowing of the sternum. The included lung bases demonstrate a gastrostomy which appears well-positioned. There is trace ascites Impression: Opacities in the left lower lobe and also to a lesser extent in the left upper lobe and minimally in the right lower lobe. Appearance is consistent with consolidation rather than mass. Most likely represents pneumonia, appearance nonspecific as regards etiology. Patchy pulmonary edema also possible, among other possibilities Small left pleural effusion Bilateral small nodules, as described. No further follow-up necessary if there are no risk factors for lung carcinoma. There are significant risk factors, then short interval follow-up CT in 6-12 months is recommended Trace ascites (2) Fever (3) Decubitus skin ulcer Assessment & Plan: Emaciated pt whom [presented on admission with Contractures, GT and Multiple Pressure Injuries. DTPI Thoracic Spine(L)1.4cm x (W)0.9cm. Base of Pressure Injury is indurated, Pupuric with surrounding maroon borders. Full Thickness stage 4 Sacral Pressure Injury(L)4.5cm x (W)3.7cm x(D)2.5cm, Undermined Borders clockwise 12-6 by 3.1cm@12o'clock. Base of wound is arleen. Bone is palpable at base of wound. Scattered slough along loose edges. Small amt serous exudate noted. Wound is malodorous. Non- Blanching erythema without induration periwound. Full thickness stage 4 Pressure Injury L trochanter(L)6.5cm x (W)9cm x 1.4cm. Undermining clockwise 7-5 by 2.6cm @12o'clock. Base of wound 60% fibrinous slough, 40% moist and pink. Bone exposure at base of wound. Edges are detached with scattered slough along borders. Small amt seropurulent exudate noted. Wound is malodorous. Periwound is maroon and indurated. Unstageable Pressure Injury R heel (L)0.6cm x (W)0.6cm.Stable dry eschar with attached edges. Surrounding Heel is boggy with Non-Blanchable erythema. DTPI lateral R Malleolus (L)1.5cm x (W)2.2cm. Base of wound is maroon and fluctuant. No evidence of further skin breakdown periwound. Unstageable Pressure Injury Dorsal R 1st metatarsal(L)0.8cm x (W)1.2cm. Dry eschar with marginal erythema along adherent borders Periwound is erythematous without fluctuance or induration. Non-Blanchable erythema with fluctuance distal/lateral L foot (L)1cm x (W)1cm. Unstageable Pressure Injury L Hallux (L)2.2cm x (W)1.5cm. Dry eschar with surrounding non-blanchable erythema.with fluctuance. Unstageable Pressure Injury Achilles L foot (L)1.5cm x (W)1.5 cm. Stable dry eschar with surrounding Non-blanchable erythema extending into plantar aspect of L heel. L heel is boggy.. Tx.Plan: Apply Cavilon Skin Barrier to Thoracic DTPI . Cover with Optifoam drsg. Change every 7 days and prn. Cleanse Sacral Wound with Dakin's 0.25% Nicki. Loosely pack wound with Dakin's moistened Kerlix. Apply Triad Paste periwound. Cover with Optifoam drsg Daily and prn. Cleanse L trochanteric Wound with Dakin's 0.25% nicki. Loosely pack with Dakin's moistened Kerlix. Apply Triad Paste Periwound. Cover with Optifoam drsg Daily and prn. Apply Betadine to Necrotic areas of L Foot . Cover each site with Optifoam drsg. Change every 3 days and prn. Apply Betadine to To Pressure Injuires R Foot. Cover each site with Optifoam drsgs. Change every 3 days and prn. Reposition at least every 2hours or as tolerated. Off-load heels with Pillow. APM/SOLOMON Mattress overlay. (4) Sepsis (5) Malnutrition Chao Ovalle Aug 13, 2020 08:13
--- NOTE | 2020-08-13 08:51 | Infectious Diseases Prog Note ---
Assessment/Plan 69yo F with: Acute hypoxic resp failure requiring BiPAP, improved Afebrile Leukocytosis to 30, improving Pneumonia UTI Recent COVID dx 07/20/2008/05 BCx NTD UA 30-40 WBC, UCx >100k E.coli and P.mirabilis (both terrazas-S) Resp cx +MRSA (S-bactrim, doxy) COVID neg CXR: Left infrahilar and basilar infiltrate, likely pneumonia. Questionable infiltrates on the right as well. MRSA nares positive on prior admission 08/08 CXR: 1. Interval mild improvement in the left infrahilar opacity. This may represent atelectasis versus pneumonia. 2. Persistent bilateral prominent interstitial markings. This is nonspecific and may represent a mild bronchitis or pneumonitis. 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 Lymphopenia Hypoxic w/ NC O2 requirement, r/o PNA 07/08 BCx NTD UA+, UCx <10k GNR COVID rapid test neg, PCR neg CXR: No acute process 07/14 UCx +yeast (colonizer) +RLE DVT on US 07/09 Elevated LFTs 67 / 120 Abd TTP 06/29 Abd US wnl Acute hep panel neg Cr 0.5 HIV screen neg PMH: DM CHF Dementia SNF resident Plan: Cont Zosyn #4/5 given persistent leukocytosis (abx d#02/16) - tentative end date of 08/15 Cont vanco IV #/ for MRSA pneumonia, on discharge can transition to oral linezolid 600mg PO BID to complete rest of course, end date 08/18 F/u 2/3 BCx given fever Trend temp curve - no clear clinical correlate for single new fever, CTM Trend WBC - improving slowly 08/10 SP CTX #3 08/07 SP Zosyn #2 07/17 SP Zosyn #7 07/10 SP CTX #2 Monitor CBC/CMP Monitor temp curve, hemodynamics Monitor resp status D/w RN Thank you for this consult. [facility] will continue to follow. Subjective Allergies: Coded Allergies: ERYTHROMYCIN BASE (Verified Allergy, Unknown, 11/12/16) AF NAD on RA WBC 12, stable Objective Last 24 Hour Vital Signs Date Time Temp Pulse Resp B/P (MAP) Pulse Ox O2 Delivery O2 Flow Rate FiO2 08/13/20 08:00 97.9 89 18 121/68 (85) 99 08/13/20 04:00 Room Air 08/13/20 04:00 76 08/13/20 04:00 97.9 64 18 118/64 (82) 98 08/13/20 00:00 97.7 81 18 110/58 (75) 98 08/13/20 00:00 Room Air 08/12/20 23:14 83 08/12/20 21:55 86 125/66 08/12/20 20:00 Room Air 08/12/20 20:00 98.2 86 18 125/66 (85) 98 08/12/20 19:22 97 Room Air 21 08/12/20 19:01 85 08/12/20 16:00 Room Air 08/12/20 16:00 85 08/12/20 16:00 98.1 88 18 130/66 (87) 98 08/12/20 12:00 98.2 79 18 122/67 (85) 96 08/12/20 12:00 80 08/12/20 11:45 Room Air 08/12/20 09:30 98 Room Air 21 Height (Feet): 5 Height (Inches): 2.00 Weight (Pounds): 85 Gen: NAD in bed HEENT: NCAT CV: RRR Pulm: CTAB Abd: Soft, NTND Ext: No c/c/e Neuro: Awake but not interactive Laboratory Tests Test 08/12/20 11:38 08/13/20 00:07 08/13/20 03:10 08/13/20 05:41 POC Whole Blood Glucose Pending 104 MG/DL (74-106) 113 MG/DL (74-106) H White Blood Count 12.4 K/UL (4.8-10.8) H Red Blood Count 2.89 M/UL (4.20-5.40) L Hemoglobin 7.9 G/DL (12.0-16.0) L Hematocrit 25.2 % (37.0-47.0) L Mean Corpuscular Volume 87 FL (80-99) Mean Corpuscular Hemoglobin 27.2 PG (27.0-31.0) Mean Corpuscular Hemoglobin Concent 31.2 G/DL (32.0-36.0) L Red Cell Distribution Width 16.6 % (11.6-14.8) H Platelet Count 499 K/UL (150-450) H Mean Platelet Volume 7.0 FL (6.5-10.1) Neutrophils (%) (Auto) % (45.0-75.0) Lymphocytes (%) (Auto) % (20.0-45.0) Monocytes (%) (Auto) % (1.0-10.0) Eosinophils (%) (Auto) % (0.0-3.0) Basophils (%) (Auto) % (0.0-2.0) Current Medications Medications (Trade) Dose Ordered Sig/Alvarado Route PRN Reason Start Time Stop Time Status Last Admin Dose Admin Acetaminophen (Tylenol) 650 mg Q4H PRN GT Mild Pain (Pain Scale 1-3) 08/05/20 11:30 09/04/20 11:29 Acetaminophen (Tylenol) 650 mg Q4H PRN GT TEMP > 100.5 08/05/20 11:45 09/04/20 11:44 08/12/20 00:05 Carvedilol (Coreg) 6.25 mg EVERY 12 HOURS GT 08/08/20 21:00 09/07/20 20:59 08/12/20 21:55 Dextrose (Dextrose 50%) 25 ml Q30M PRN IV Hypoglycemia 08/06/20 12:00 11/04/20 11:59 Dextrose (Dextrose 50%) 50 ml Q30M PRN IV Hypoglycemia 08/06/20 12:00 11/04/20 11:59 Heparin Sodium (Porcine) (Heparin 5000 units/ml) 5,000 units EVERY 12 HOURS SUBQ 08/05/20 21:00 09/19/20 20:59 08/12/20 21:57 Insulin Aspart (NovoLOG) Q6HR SUBQ 08/06/20 18:00 11/04/20 17:59 Levetiracetam (Keppra) 500 mg Q12HR GT 08/05/20 21:00 09/04/20 20:59 08/12/20 21:55 Midodrine (Pro-Amatine) 10 mg Q8HR ORAL 08/06/20 14:00 11/04/20 13:59 08/12/20 14:05 Pantoprazole (Protonix) 40 mg Q12HR IVP 08/06/20 21:00 09/05/20 08:59 08/12/20 21:55 Piperacillin Sod/ Tazobactam Sod 3.375 gm/Sodium Chloride 110 ml @ 27.5 mls/hr EVERY 8 HOURS IVPB 08/10/20 11:30 08/15/20 11:29 08/13/20 05:59 Sodium 1,000 ml @ 75 mls/hr [id number] IV 08/06/20 14:00 09/05/20 13:59 08/13/20 05:50 Sodium Hypochlorite (Dakin's Quarter Strength) 1 applic DAILY TOPIC 08/06/20 09:00 09/05/20 08:59 08/12/20 08:39 Spironolactone (Aldactone) 25 mg DAILY GT 08/09/20 09:00 09/08/20 08:59 08/12/20 08:37 Vancomycin HCl (Vanco pharmacy to dose) 1 ea DAILY PRN MISC . 08/05/20 14:00 09/04/20 13:59 Vancomycin HCl 1 gm/Sodium Chloride 275 ml @ 183.708 mls/hr Q12H IVPB 08/10/20 20:00 08/15/20 19:59 08/12/20 20:36 Beth Marsh M.D. Aug 13, 2020 08:51
[2020-08-13] MEDS: Heparin 5000 units/ml inj SUBQ SCH ×2 (09:00→20:45)
[2020-08-13] MEDS: Pantoprazole Inj IVP SCH ×2 (09:23→20:45)
[2020-08-13] MEDS: levETIRAcetam 500mg/5ml Liquid GT SCH ×2 (09:23→20:45)
[2020-08-13] MEDS: Spironolactone 25mg tab GT SCH (09:23)
[2020-08-13] MEDS: Vancomycin 1 GM in NS 275 ML IVPB SCH ×2 (09:23→20:44)
[2020-08-13] MEDS: Dakin's 0.125% Soln (Quarter Strength) 16oz TOPIC SCH (09:24)
[2020-08-13] MEDS: Carvedilol 6.25mg Tab GT SCH ×2 (09:24→20:45)
--- NOTE | 2020-08-13 10:25 | NUR ---
CASE MANAGEMENT:REVIEW 08/13/20 SI: PNA. UTI 97.9 89 18 121/68 99% ON RA WBC+12.4 IS: IV VANCOMYCIN Q12 IV ZOSYN Q8HRS IVF@75/HR ALDACTONE GT QD COREG GT Q12 IV PROTONIX Q12 MIDODRINE PO Q8HRS KEPPRA GT Q12 HEPARIN SQ Q12 :STEP DOWN UNIT DCP: FROM [facility]
--- NOTE | 2020-08-13 11:35 | NUR ---
NURSE NOTES: MD. WHITFIELD HERE TO SEE PT. WAS INFORMED OF WBC 12.4, AFEBRILE. NO NEW ORDERS.
--- NOTE | 2020-08-13 11:36 | NUR ---
NURSE NOTES: WOUND CARE NURSE HERE TO DO WOUND CARE TREATMENT.
[2020-08-13 12:00] VITALS: BP 130/67
[2020-08-13] MEDS ORDERED: Tubing IV Secondary IV ONE (13:56)
[2020-08-13] MEDS ORDERED: NS 275ml ONE (13:56)
--- NOTE | 2020-08-13 15:36 | NUR ---
NURSE NOTES: Received report from Alisa [employer]IST. Pt is lying in bed, not in distress, no facial grimacing noted. Tolerating room air with 97-100% saturation. Wounds were dress by wound care nurse. Stable vital signs. Bed is locked and in lowest position, bed alarm on, head of bed elevated at all times. Will continue to monitor pt. Will continue with the plan of care.
--- NOTE | 2020-08-13 15:53 | NUR ---
NURSE NOTES:WOUND CARE FOLLOW-UP NOTES:Pt presented on admission with multiple Pressure Injuries.Clusters of indurated red pressure injuries noted to R scapula an area of (L)8cm x (W)5.5cm. Unstageable Sacral Pressure injury(L)7cm x (W)5.8cm,undermining clockwise 11-6 by 3.8cm@2o'clock. Base of wound is 80% necrotic,10% slough,10% moist and arleen. Edges are macerated. Non-blanchable erythema without induration or fluctuance periwound. Full Thickness Pressure Injury L trochanter(L)7cm x (W)8cmx(D)0.9cm,undermining clockwise 7-2 by 2.7cm @ 10 o'clock. Base of wound is 40% necrotic 20% fibrinous slough ,40% beefy red. Periwound is indurated along borders. No erythema noted. Small amt seropurulent exudate noted. Mild odor noted.In close proximity on L Hip is DTPI(L)1.5cm x (W)1cm. Base of Pressure injury is purpuric with marginal erythema along edges. Unstageable Pressure Injury R Hip (L)1.5cm x (W)3cm Base of Pressure injury is 100% necrotic. Edges are adherent to base of wound. Non-Blanchable erythema with fluctuance periwound. No elevation in skin temp periwound. Unstageable Pressure Injury R Heel(L)0.7cm x (W)0.7cm. Base of wound is 100% necrotic but dry. Edges are adherent to base of wound . Periwound is blanchable but boggy. Unstageable Pressure Injury dorsal R 1st metatarsal.Base of wound is 100% necrotic but dry. Reabsorbing DTPI L Hallux(L)2cm x (W)1.4cm. DTPI L Achilles(L)1.5cm x (W)2cm. Base of Pressure Injury is purpuric in center with surrounding maroon borders. Wound Tx. continued as ordered. All wound prevention protocols continued as care-planned.
[2020-08-13 16:00] VITALS: BP 128/62
--- NOTE | 2020-08-13 19:25 | General Progress Note ---
Subjective Constitutional: Reports: no symptoms HEENT: Reports: no symptoms Cardiovascular: Reports: no symptoms Respiratory: Reports: no symptoms Gastrointestinal/Abdominal: Reports: no symptoms Genitourinary: Reports: no symptoms Neurologic/Psychiatric: Reports: no symptoms Endocrine: Reports: no symptoms Hematologic/Lymphatic: Reports: no symptoms Allergies: Coded Allergies: ERYTHROMYCIN BASE (Verified Allergy, Unknown, 11/12/16) Objective Last 24 Hour Vital Signs Date Time Temp Pulse Resp B/P (MAP) Pulse Ox O2 Delivery O2 Flow Rate FiO2 08/13/20 16:00 89 08/13/20 16:00 98.0 71 18 128/62 (84) 98 08/13/20 16:00 Room Air 08/13/20 12:00 97.5 79 20 130/67 (88) 99 08/13/20 12:00 Room Air 08/13/20 11:46 83 08/13/20 09:24 89 121/68 08/13/20 08:00 97.9 89 18 121/68 (85) 99 08/13/20 08:00 Room Air 08/13/20 07:43 97 08/13/20 04:00 Room Air 08/13/20 04:00 76 08/13/20 04:00 97.9 64 18 118/64 (82) 98 08/13/20 00:00 97.7 81 18 110/58 (75) 98 08/13/20 00:00 Room Air 08/12/20 23:14 83 08/12/20 21:55 86 125/66 08/12/20 20:00 Room Air 08/12/20 20:00 98.2 86 18 125/66 (85) 98 08/12/20 19:22 97 Room Air 21 Intake and Output 08/12/20 08/13/20 19:00 07:00 Intake Total 2012.416 ml 700 ml Output Total 2300 ml 1900 ml Balance -287.584 ml -1200 ml Intake Free Water 150 ml IV Total 1412.416 ml Tube Feeding 600 ml 550 ml Output Urine Total 2300 ml 1900 ml Laboratory Tests 08/13/20 00:07: POC Whole Blood Glucose 104 08/13/20 03:10: White Blood Count 12.4H, Red Blood Count 2.89L, Hemoglobin 7.9L, Hematocrit 25.2L, Mean Corpuscular Volume 87, Mean Corpuscular Hemoglobin 27.2, Mean Corpuscular Hemoglobin Concent 31.2L, Red Cell Distribution Width 16.6H, Platelet Count 499H, Mean Platelet Volume 7.0, Neutrophils (%) (Auto) , Lymphocytes (%) (Auto) , Monocytes (%) (Auto) , Eosinophils (%) (Auto) , Basophils (%) (Auto) 08/13/20 05:41: POC Whole Blood Glucose 113H 08/13/20 12:21: POC Whole Blood Glucose 94 08/13/20 17:20: POC Whole Blood Glucose 93 08/13/20 18:30: Vancomycin Level Trough 18.1H Height (Feet): 5 Height (Inches): 2.00 Weight (Pounds): 85 General Appearance: no apparent distress, lethargic EENT: normal ENT inspection Neck: supple Cardiovascular: normal rate, regular rhythm, no gallop/murmur, no JVD Respiratory/Chest: lungs clear, decreased breath sounds Abdomen: normal bowel sounds, non tender, soft, no organomegaly, no mass Extremities: non-tender Neurologic: alert, aphasia Assessment/Plan Status Narrative Patient is awake febrile and hemodynamically stable with brief eye contact and very short attention span physical examination did not change WBC increased from 10-12 she is still on Zosyn 3.375 g IV piggyback every 6 and vancomycin 1 g IV piggyback every 12 blood culture taken yesterday for the time being negative and H&H drop from the 827 level today 7.925 alert and total iron binding capacity and ferritin will be requested laboratory tests will be done in a.m.Gale Barboza MD, MD Aug 13, 2020 19:25
--- NOTE | 2020-08-13 19:40 | NUR ---
NURSE HAND-OFF REPORT: Important Events on Shift:None Patient Status: Full code Diet: Glucerna 1.2 @ 50cc/hr Pending Orders: N Pending Results/Labs:N Pending notification:N Latest Vital Signs: Temperature 98.0 , Pulse 89 , B/P 128 /62 , Respiratory Rate 18 , O2 SAT 98 , Bi-pap, O2 Flow Rate 3.0 . Vital Sign Comment: stable EKG Rhythm: Sinus Rhythm Rhythm change?: N MD Notified?: Y -Dr Rima MENDEZ Response: No New Orders Received Latest Huggins Fall Score: 50 Fall Risk: High Risk Safety Measures: Call light Within Reach, Bed Alarm Zone 1, Side Rails Side Rails x3, Bed position Low and Locked. Fall Precautions: Door Sign Report given to DURAN Chauhan.
--- NOTE | 2020-08-13 19:41 | NUR ---
NURSE NOTES: Report received from DURAN Venegas. Upon assessment pt appears obtunded. Responsive to tactile stimuli. PERRLA. Well kempt. 5-lead EKG shows SR at 90 BPM. 99% saturation on room air. Vitals WNL. Afebrile. g-tube running Glucerna 1.2 at 50 mL with 0 residual noted. Gallardo draining well to gravity. Bed kept in lowest and locked position. Side rails upx3. Will continue monitoring.
[2020-08-13 20:00] VITALS: BP 122/71
--- NOTE | 2020-08-13 20:30 | NUR ---
NURSE NOTES: Left message for Dr. Abarca with request for parameters for Coreg and Midodrine since both are administered 1 hour apart. Suctioned with RT at bedside for congestion. No cardiopulmonary distress noted. Will monitor.
[2020-08-14] VITALS: BP 101/66
[2020-08-14 04:00] VITALS: BP 121/66
--- NOTE | 2020-08-14 04:30 | NUR ---
NURSE NOTES: Pt EJ infiltrated. Will DC and replace. Bed bath and oral care provided. No cardiopulmonary distress noted.
[2020-08-14 04:48] LABS: BASOPHILS % (AUTO) 2.3 % (0.0-2.0); EOSINOPHILS % (AUTO) 1.3 % (0.0-3.0); HEMATOCRIT 25.3 % (37.0-47.0); HEMOGLOBIN 8.1 G/DL (12.0-16.0); LYMPHOCYTES % (AUTO) 9.5 % (20.0-45.0); MEAN CORPUSCULAR VOLUME 89 FL (80-99); MONOCYTES % (AUTO) 8.7 % (1.0-10.0); NEUTROPHILS % (AUTO) 78.2 % (45.0-75.0); PLATELET COUNT 424 K/UL (150-450); RED BLOOD COUNT 2.84 M/UL (4.20-5.40); RED CELL DISTRIBUTION WIDTH 16.8 % (11.6-14.8); WHITE BLOOD COUNT 10.9 K/UL (4.8-10.8)
[2020-08-14] MEDS: Midodrine 10mg tab ORAL SCH ×2 (05:05→13:05)
[2020-08-14] MEDS: Piperacillin/Tazobactam 3.375 GM in NS 110 ML IVPB SCH ×2 (05:05→13:04)
[2020-08-14] MEDS: NovoLOG Insulin Flexpen SUBQ SCH ×2 (05:06→12:00)
[2020-08-14 05:21] LABS: ANION GAP 9 mmol/L (5-15); BLOOD UREA NITROGEN 14 mg/dL (7-18); CALCIUM 8.9 MG/DL (8.5-10.1); CARBON DIOXIDE 25 MMOL/L (21-32); CHLORIDE 103 MMOL/L (98-107); CREATININE 0.4 MG/DL (0.55-1.30); FERRITIN 223 NG/ML (8-388); IRON 40 ug/dL (50-175); POTASSIUM 4.6 MMOL/L (3.5-5.1); SODIUM 137 MMOL/L (136-145); TOTAL IRON BINDING CAPACITY 243 ug/dL (250-450)
[2020-08-14 05:24] LABS: % IRON SATURATION 16 % (15-50)
[2020-08-14] MEDS ORDERED: Miralax 17gm pkt GT PRN (06:30)
--- NOTE | 2020-08-14 06:37 | Hematology/Onc Progress Note ---
Assessment/Plan Assessment/Plan Assessment and Recs # Leukocytosis with likely sepsis due to pna --> ON ABX vanc/zosyn-->vanc/ctx --> is on ivfs --> abx as per ID --> imaging noted --> wbc 28-->16->15-->16-->11 # Right lower extremity dvt --> h/h to low for anticoag --> consider repeat lower duplex at this time-->neg dvt 08/06 --> consider ivcf # Anemia due to chronic disease --> hgb 10-->8.2-->7.4-->8 # Respiratory distress --> r/o covid --> per pulm # Dysphagia s/p peg --> as per gi # CVA hx # HL --> lipitor and asa # Tachycardia --> ivfs should improve # Dvt ppx heparin sq Appreciate consultation and iraida Swann Subjective Allergies: Coded Allergies: ERYTHROMYCIN BASE (Verified Allergy, Unknown, 11/12/16) All Systems: reviewed and negative except above Subjective 08/09 asleep, on glucerna, meds noted, labs reviewed / labs reviewed, meds noted, no bleeding, iraida rn, on fluids 2/ labs reviewed, meds noted, hgb 7.4, transfuse on prn basis / meds reviewed, labs pending from am, is on abx 2 meds reviewed, hgb is improved, meds noted, abx 08/14 iraida Chauhan Rn re parameters for midrinone and coreg, otherwise comfortable Objective Objective Current Medications Medications (Trade) Dose Ordered Sig/Alvarado Route PRN Reason Start Time Stop Time Status Last Admin Dose Admin Acetaminophen (Tylenol) 650 mg Q4H PRN GT Mild Pain (Pain Scale 1-3) 08/05/20 11:30 09/04/20 11:29 Acetaminophen (Tylenol) 650 mg Q4H PRN GT TEMP > 100.5 08/05/20 11:45 09/04/20 11:44 08/12/20 00:05 Carvedilol (Coreg) 3.125 mg EVERY 12 HOURS GT 08/14/20 09:00 09/13/20 08:59 Dextrose (Dextrose 50%) 25 ml Q30M PRN IV Hypoglycemia 08/06/20 12:00 11/04/20 11:59 Dextrose (Dextrose 50%) 50 ml Q30M PRN IV Hypoglycemia 08/06/20 12:00 11/04/20 11:59 Heparin Sodium (Porcine) (Heparin 5000 units/ml) 5,000 units EVERY 12 HOURS SUBQ 08/05/20 21:00 09/19/20 20:59 08/13/20 20:45 Insulin Aspart (NovoLOG) Q6HR SUBQ 08/06/20 18:00 11/04/20 17:59 Levetiracetam (Keppra) 500 mg Q12HR GT 08/05/20 21:00 09/04/20 20:59 08/13/20 20:45 Midodrine (Pro-Amatine) 10 mg Q8HR ORAL 08/06/20 14:00 11/04/20 13:59 08/13/20 22:09 Pantoprazole (Protonix) 40 mg Q12HR IVP 08/06/20 21:00 09/05/20 08:59 08/13/20 20:45 Piperacillin Sod/ Tazobactam Sod 3.375 gm/Sodium Chloride 110 ml @ 27.5 mls/hr EVERY 8 HOURS IVPB 08/10/20 11:30 08/15/20 11:29 08/14/20 05:05 Polyethylene Glycol (Miralax) 17 gm DAILY PRN GT Constipation 08/14/20 06:30 09/13/20 06:29 Sodium 1,000 ml @ 75 mls/hr [id number] IV 08/06/20 14:00 09/05/20 13:59 08/13/20 20:43 Sodium Hypochlorite (Dakin's Quarter Strength) 1 applic DAILY TOPIC 08/06/20 09:00 09/05/20 08:59 08/13/20 09:24 Spironolactone (Aldactone) 25 mg DAILY GT 08/09/20 09:00 09/08/20 08:59 08/13/20 09:23 Vancomycin HCl (Vanco pharmacy to dose) 1 ea DAILY PRN MISC . 08/05/20 14:00 09/04/20 13:59 Vancomycin HCl 1 gm/Sodium Chloride 275 ml @ 183.708 mls/hr Q12H IVPB 08/10/20 20:00 08/15/20 19:59 08/13/20 20:44 Last 24 Hour Vital Signs Date Time Temp Pulse Resp B/P (MAP) Pulse Ox O2 Delivery O2 Flow Rate FiO2 08/14/20 04:00 88 08/14/20 04:00 97.9 84 20 121/66 (84) 98 08/14/20 04:00 Room Air 08/14/20 00:00 98.2 98 20 101/66 (78) 98 08/14/20 00:00 Room Air 08/14/20 00:00 82 08/13/20 20:45 90 119/80 08/13/20 20:00 Room Air 08/13/20 20:00 91 08/13/20 20:00 97.5 93 20 122/71 (88) 97 08/13/20 19:52 98 Room Air 08/13/20 16:00 89 08/13/20 16:00 98.0 71 18 128/62 (84) 98 08/13/20 16:00 Room Air 08/13/20 12:00 97.5 79 20 130/67 (88) 99 08/13/20 12:00 Room Air 08/13/20 11:46 83 08/13/20 09:24 89 121/68 08/13/20 08:00 97.9 89 18 121/68 (85) 99 08/13/20 08:00 Room Air 08/13/20 07:43 97 08/13/20 04:00 Room Air 08/13/20 04:00 76 08/13/20 04:00 97.9 64 18 118/64 (82) 98 08/13/20 00:00 97.7 81 18 110/58 (75) 98 08/13/20 00:00 Room Air 08/12/20 23:14 83 08/12/20 21:55 86 125/66 08/12/20 20:00 Room Air 08/12/20 20:00 98.2 86 18 125/66 (85) 98 08/12/20 19:22 97 Room Air 08/12/20 19:01 85 08/12/20 16:00 Room Air 08/12/20 16:00 85 08/12/20 16:00 98.1 88 18 130/66 (87) 98 08/12/20 12:00 98.2 79 18 122/67 (85) 96 08/12/20 12:00 80 08/12/20 11:45 Room Air 08/12/20 09:30 98 Room Air 21 08/12/20 08:37 78 129/70 08/12/20 08:00 96.6 78 18 129/70 (89) 98 08/12/20 08:00 83 08/12/20 08:00 Room Air Intake and Output 08/13/20 08/14/20 19:00 07:00 Intake Total 425 ml 1848.816 ml Output Total 2000 ml 2000 ml Balance -1575 ml -151.184 ml Intake Free Water 100 ml IV Total 75 ml 1298.816 ml Tube Feeding 250 ml 550 ml Output Urine Total 2000 ml 2000 ml Labs Test 08/11/20 11:51 08/11/20 17:57 08/11/20 20:10 08/11/20 23:21 POC Whole Blood Glucose 104 MG/DL (74-106) White Blood Count 16.3 K/UL (4.8-10.8) Red Blood Count 2.77 M/UL (4.20-5.40) Hemoglobin 7.8 G/DL (12.0-16.0) Hematocrit 24.3 % (37.0-47.0) Mean Corpuscular Volume 88 FL (80-99) Mean Corpuscular Hemoglobin 28.2 PG (27.0-31.0) Mean Corpuscular Hemoglobin Concent 32.2 G/DL (32.0-36.0) Red Cell Distribution Width 16.6 % (11.6-14.8) Platelet Count 461 K/UL (150-450) Mean Platelet Volume 7.8 FL (6.5-10.1) Neutrophils (%) (Auto) 84.7 % (45.0-75.0) Lymphocytes (%) (Auto) 9.7 % (20.0-45.0) Monocytes (%) (Auto) 4.2 % (1.0-10.0) Eosinophils (%) (Auto) 0.8 % (0.0-3.0) Basophils (%) (Auto) 0.7 % (0.0-2.0) Test 08/12/20 06:31 08/12/20 07:00 08/12/20 11:38 08/13/20 00:07 White Blood Count 10.9 K/UL (4.8-10.8) Red Blood Count 2.99 M/UL (4.20-5.40) Hemoglobin 8.3 G/DL (12.0-16.0) Hematocrit 26.5 % (37.0-47.0) Mean Corpuscular Volume 89 FL (80-99) Mean Corpuscular Hemoglobin 27.9 PG (27.0-31.0) Mean Corpuscular Hemoglobin Concent 31.5 G/DL (32.0-36.0) Red Cell Distribution Width 16.7 % (11.6-14.8) Platelet Count 498 K/UL (150-450) Mean Platelet Volume 7.7 FL (6.5-10.1) Neutrophils (%) (Auto) 77.6 % (45.0-75.0) Lymphocytes (%) (Auto) 15.9 % (20.0-45.0) Monocytes (%) (Auto) 4.7 % (1.0-10.0) Eosinophils (%) (Auto) 1.4 % (0.0-3.0) Basophils (%) (Auto) 0.4 % (0.0-2.0) Sodium Level 141 MMOL/L (136-145) Potassium Level 4.3 MMOL/L (3.5-5.1) Chloride Level 106 MMOL/L (98-107) Carbon Dioxide Level 27 MMOL/L (21-32) Anion Gap 8 mmol/L (5-15) Blood Urea Nitrogen 11 mg/dL (7-18) Creatinine 0.4 MG/DL (0.55-1.30) Estimat Glomerular Filtration Rate > 60 mL/min (>60) Glucose Level 115 MG/DL (74-106) Calcium Level 9.1 MG/DL (8.5-10.1) Total Bilirubin 0.2 MG/DL (0.2-1.0) Aspartate Amino Transf (AST/SGOT) 15 U/L (15-37) Alanine Aminotransferase (ALT/SGPT) 26 U/L (12-78) Alkaline Phosphatase 78 U/L (46-116) Total Protein 7.5 G/DL (6.4-8.2) Albumin 2.2 G/DL (3.4-5.0) Globulin 5.3 g/dL Albumin/Globulin Ratio 0.4 (1.0-2.7) Vancomycin Level Trough 19.8 ug/mL (5.0-12.0) POC Whole Blood Glucose 104 MG/DL (74-106) Test 08/13/20 03:10 08/13/20 05:41 08/13/20 12:21 08/13/20 17:20 White Blood Count 12.4 K/UL (4.8-10.8) Red Blood Count 2.89 M/UL (4.20-5.40) Hemoglobin 7.9 G/DL (12.0-16.0) Hematocrit 25.2 % (37.0-47.0) Mean Corpuscular Volume 87 FL (80-99) Mean Corpuscular Hemoglobin 27.2 PG (27.0-31.0) Mean Corpuscular Hemoglobin Concent 31.2 G/DL (32.0-36.0) Red Cell Distribution Width 16.6 % (11.6-14.8) Platelet Count 499 K/UL (150-450) Mean Platelet Volume 7.0 FL (6.5-10.1) Neutrophils (%) (Auto) % (45.0-75.0) Lymphocytes (%) (Auto) % (20.0-45.0) Monocytes (%) (Auto) % (1.0-10.0) Eosinophils (%) (Auto) % (0.0-3.0) Basophils (%) (Auto) % (0.0-2.0) POC Whole Blood Glucose 113 MG/DL (74-106) 94 MG/DL (74-106) 93 MG/DL (74-106) Test 08/13/20 18:30 08/14/20 03:50 Vancomycin Level Trough 18.1 ug/mL (5.0-12.0) White Blood Count 10.9 K/UL (4.8-10.8) Red Blood Count 2.84 M/UL (4.20-5.40) Hemoglobin 8.1 G/DL (12.0-16.0) Hematocrit 25.3 % (37.0-47.0) Mean Corpuscular Volume 89 FL (80-99) Mean Corpuscular Hemoglobin 28.4 PG (27.0-31.0) Mean Corpuscular Hemoglobin Concent 31.8 G/DL (32.0-36.0) Red Cell Distribution Width 16.8 % (11.6-14.8) Platelet Count 424 K/UL (150-450) Mean Platelet Volume 7.1 FL (6.5-10.1) Neutrophils (%) (Auto) 78.2 % (45.0-75.0) Lymphocytes (%) (Auto) 9.5 % (20.0-45.0) Monocytes (%) (Auto) 8.7 % (1.0-10.0) Eosinophils (%) (Auto) 1.3 % (0.0-3.0) Basophils (%) (Auto) 2.3 % (0.0-2.0) Sodium Level 137 MMOL/L (136-145) Potassium Level 4.6 MMOL/L (3.5-5.1) Chloride Level 103 MMOL/L (98-107) Carbon Dioxide Level 25 MMOL/L (21-32) Anion Gap 9 mmol/L (5-15) Blood Urea Nitrogen 14 mg/dL (7-18) Creatinine 0.4 MG/DL (0.55-1.30) Estimat Glomerular Filtration Rate > 60 mL/min (>60) Glucose Level 109 MG/DL (74-106) Calcium Level 8.9 MG/DL (8.5-10.1) Iron Level 40 ug/dL (50-175) Total Iron Binding Capacity 243 ug/dL (250-450) Percent Iron Saturation 16 % (15-50) Unsaturated Iron Binding 203 ug/dL (112-346) Ferritin 223 NG/ML (8-388) Height (Feet): 5 Height (Inches): 2.00 Weight (Pounds): 85 Objective Physical Exam Sp02 EP Interpretation: reviewed, normal General Appearance: no apparent distress, non-verbal Head: normocephalic, atraumatic ENT: hearing grossly normal, no angioedema Respiratory: chest non-tender, lungs clear, normal breath sounds,++bipap Cardiovascular: no edema, tachycardia Gastrointestinal: normal bowel sounds, non tender, soft, ++gt Rectal: deferred Musculoskeletal: normal inspection Neurologic: alert, motor strength/tone normal, no focal defects Psychiatric: mood/affect normal Skin: other - See RN skin exam. Lymphatic: no adenopathy Gu: valderrama+++ Nate Begum MD Aug 14, 2020 06:37
--- NOTE | 2020-08-14 06:46 | NUR ---
NURSE HAND-OFF REPORT: Important Events on Shift: No changes Patient Status: Stable Diet: Gluc Pending Orders: Pending Results/Labs: Pending MD notification: Latest Vital Signs: Temperature 97.9 , Pulse 84 , B/P 121 /66 , Respiratory Rate 20 , O2 SAT 98 , Bi-pap, O2 Flow Rate 3.0 . Vital Sign Comment: WNL EKG Rhythm: Sinus Rhythm Rhythm change?: N MD Notified?: Y -Dr Rima MENDEZ Response: No New Orders Received Latest Huggins Fall Score: 50 Fall Risk: High Risk Safety Measures: Call light Within Reach, Bed Alarm Zone 1, Side Rails Side Rails x3, Bed position Low and Locked. Fall Precautions: Door Sign Report given to DURAN Venegas.
--- NOTE | 2020-08-14 07:21 | NUR ---
NURSE NOTES: Contacted Dr. Begum regarding IVF 0.45% NS with KCl 20mEq with recent potassium level 4.6 Dr. Begum wants to continue IVF. Will continue to monitor pt.
--- NOTE | 2020-08-14 07:25 | NUR ---
NURSE NOTES: Received report from DURAN Chauhan. Pt is lying in bed, no facial grimacing noted, not in distress. VSS. Tolerating room air with O2 saturation 98%. Sinus Rhythm on the monitoring engineer. G-tube is intact and patent running Glucerna 1.2 @ 50cc/hr. Gallardo catheter is intact and patent draining sufficient yellow urine. Wounds noted and dressing intact. Recent labs, medication and MD orders reviewed. Fall, aspiration, and seizure precautions in place. Bed is locked and in lowest position, bed alarm on, call light is with the pt. Head of bed is elevated at all times. Will continue to monitor pt. Will continue with the plan of care.
--- NOTE | 2020-08-14 07:27 | Infectious Diseases Prog Note ---
Assessment/Plan 69yo F with: Acute hypoxic resp failure requiring BiPAP, improved Afebrile Leukocytosis to 30, improving Pneumonia UTI Recent COVID dx 07/20/2008/05 BCx NTD UA 30-40 WBC, UCx >100k E.coli and P.mirabilis (both terrazas-S) Resp cx +MRSA (S-bactrim, doxy) COVID neg CXR: Left infrahilar and basilar infiltrate, likely pneumonia. Questionable infiltrates on the right as well. MRSA nares positive on prior admission 08/08 CXR: 1. Interval mild improvement in the left infrahilar opacity. This may represent atelectasis versus pneumonia. 2. Persistent bilateral prominent interstitial markings. This is nonspecific and may represent a mild bronchitis or pneumonitis. 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 Lymphopenia Hypoxic w/ NC O2 requirement, r/o PNA 07/08 BCx NTD UA+, UCx <10k GNR COVID rapid test neg, PCR neg CXR: No acute process 07/14 UCx +yeast (colonizer) +RLE DVT on US 07/09 Elevated LFTs 67 / 120 Abd TTP 06/29 Abd US wnl Acute hep panel neg Cr 0.5 HIV screen neg PMH: DM CHF Dementia SNF resident Plan: Cont Zosyn #5/5 given persistent leukocytosis (abx d#04/18) - end date of 08/15 Cont vanco IV #10/ for MRSA pneumonia, on discharge can transition to oral linezolid 600mg PO BID to complete rest of course, end date 08/18 OK to d/c from ID standpoint to completed above abx course at [facility] F/u 2/3 BCx given fever - NTD Trend temp curve - no clear clinical correlate for single new fever, CTM Trend WBC - improving slowly 08/10 SP CTX #3 08/07 SP Zosyn #2 07/17 SP Zosyn #7 07/10 SP CTX #2 Monitor CBC/CMP Monitor temp curve, hemodynamics Monitor resp status D/w RN Thank you for this consult. [facility] will continue to follow. Subjective Allergies: Coded Allergies: ERYTHROMYCIN BASE (Verified Allergy, Unknown, 11/12/16) AF NAD on RA WBC 10, improving Objective Last 24 Hour Vital Signs Date Time Temp Pulse Resp B/P (MAP) Pulse Ox O2 Delivery O2 Flow Rate FiO2 08/14/20 04:00 88 08/14/20 04:00 97.9 84 20 121/66 (84) 98 08/14/20 04:00 Room Air 08/14/20 00:00 98.2 98 20 101/66 (78) 98 08/14/20 00:00 Room Air 08/14/20 00:00 82 08/13/20 20:45 90 119/80 08/13/20 20:00 Room Air 08/13/20 20:00 91 08/13/20 20:00 97.5 93 20 122/71 (88) 97 08/13/20 19:52 98 Room Air 21 08/13/20 16:00 89 08/13/20 16:00 98.0 71 18 128/62 (84) 98 08/13/20 16:00 Room Air 08/13/20 12:00 97.5 79 20 130/67 (88) 99 08/13/20 12:00 Room Air 08/13/20 11:46 83 08/13/20 09:24 89 121/68 08/13/20 08:00 97.9 89 18 121/68 (85) 99 08/13/20 08:00 Room Air 08/13/20 07:43 97 Height (Feet): 5 Height (Inches): 2.00 Weight (Pounds): 85 Gen: NAD in bed HEENT: NCAT CV: RRR Pulm: CTAB Abd: Soft, NTND Ext: No c/c/e Neuro: Awake but not interactive Microbiology Date/Time Source Procedure Growth Status 08/12/20 09:48 Blood Blood Culture - Preliminary NO GROWTH AFTER 24 HOURS Resulted 08/12/20 09:38 Blood Blood Culture - Preliminary NO GROWTH AFTER 24 HOURS Resulted Laboratory Tests Test 08/13/20 12:21 08/13/20 17:20 08/13/20 18:30 08/14/20 03:50 POC Whole Blood Glucose 94 MG/DL (74-106) 93 MG/DL (74-106) Vancomycin Level Trough 18.1 ug/mL (5.0-12.0) H White Blood Count 10.9 K/UL (4.8-10.8) H Red Blood Count 2.84 M/UL (4.20-5.40) L Hemoglobin 8.1 G/DL (12.0-16.0) L Hematocrit 25.3 % (37.0-47.0) L Mean Corpuscular Volume 89 FL (80-99) Mean Corpuscular Hemoglobin 28.4 PG (27.0-31.0) Mean Corpuscular Hemoglobin Concent 31.8 G/DL (32.0-36.0) L Red Cell Distribution Width 16.8 % (11.6-14.8) H Platelet Count 424 K/UL (150-450) Mean Platelet Volume 7.1 FL (6.5-10.1) Neutrophils (%) (Auto) 78.2 % (45.0-75.0) H Lymphocytes (%) (Auto) 9.5 % (20.0-45.0) L Monocytes (%) (Auto) 8.7 % (1.0-10.0) Eosinophils (%) (Auto) 1.3 % (0.0-3.0) Basophils (%) (Auto) 2.3 % (0.0-2.0) H Sodium Level 137 MMOL/L (136-145) Potassium Level 4.6 MMOL/L (3.5-5.1) Chloride Level 103 MMOL/L (98-107) Carbon Dioxide Level 25 MMOL/L (21-32) Anion Gap 9 mmol/L (5-15) Blood Urea Nitrogen 14 mg/dL (7-18) Creatinine 0.4 MG/DL (0.55-1.30) L Estimat Glomerular Filtration Rate > 60 mL/min (>60) Glucose Level 109 MG/DL (74-106) H Calcium Level 8.9 MG/DL (8.5-10.1) Iron Level 40 ug/dL (50-175) L Total Iron Binding Capacity 243 ug/dL (250-450) L Percent Iron Saturation 16 % (15-50) Unsaturated Iron Binding 203 ug/dL (112-346) Ferritin 223 NG/ML (8-388) Current Medications Medications (Trade) Dose Ordered Sig/Alvarado Route PRN Reason Start Time Stop Time Status Last Admin Dose Admin Acetaminophen (Tylenol) 650 mg Q4H PRN GT Mild Pain (Pain Scale 1-3) 08/05/20 11:30 09/04/20 11:29 Acetaminophen (Tylenol) 650 mg Q4H PRN GT TEMP > 100.5 08/05/20 11:45 09/04/20 11:44 08/12/20 00:05 Carvedilol (Coreg) 3.125 mg EVERY 12 HOURS GT 08/14/20 09:00 09/13/20 08:59 Dextrose (Dextrose 50%) 25 ml Q30M PRN IV Hypoglycemia 08/06/20 12:00 11/04/20 11:59 Dextrose (Dextrose 50%) 50 ml Q30M PRN IV Hypoglycemia 08/06/20 12:00 11/04/20 11:59 Heparin Sodium (Porcine) (Heparin 5000 units/ml) 5,000 units EVERY 12 HOURS SUBQ 08/05/20 21:00 09/19/20 20:59 08/13/20 20:45 Insulin Aspart (NovoLOG) Q6HR SUBQ 08/06/20 18:00 11/04/20 17:59 Levetiracetam (Keppra) 500 mg Q12HR GT 08/05/20 21:00 09/04/20 20:59 08/13/20 20:45 Midodrine (Pro-Amatine) 10 mg Q8HR ORAL 08/06/20 14:00 11/04/20 13:59 08/13/20 22:09 Pantoprazole (Protonix) 40 mg Q12HR IVP 08/06/20 21:00 09/05/20 08:59 08/13/20 20:45 Piperacillin Sod/ Tazobactam Sod 3.375 gm/Sodium Chloride 110 ml @ 27.5 mls/hr EVERY 8 HOURS IVPB 08/10/20 11:30 08/15/20 11:29 08/14/20 05:05 Polyethylene Glycol (Miralax) 17 gm DAILY PRN GT Constipation 08/14/20 06:30 09/13/20 06:29 Sodium 1,000 ml @ 75 mls/hr [id number] IV 08/06/20 14:00 09/05/20 13:59 08/13/20 20:43 Sodium Hypochlorite (Dakin's Quarter Strength) 1 applic DAILY TOPIC 1/28/21 09:00 09/05/20 08:59 08/13/20 09:24 Spironolactone (Aldactone) 25 mg DAILY GT 08/09/20 09:00 09/08/20 08:59 08/13/20 09:23 Vancomycin HCl ([facility] pharmacy to dose) 1 ea DAILY PRN MISC . 08/05/20 14:00 09/04/20 13:59 Vancomycin HCl 1 gm/Sodium Chloride 275 ml @ 183.708 mls/hr Q12H IVPB 08/10/20 20:00 08/15/20 19:59 08/13/20 20:44 Beth Marsh M.D. Aug 14, 2020 07:27
[2020-08-14 08:00] VITALS: BP 128/64
[2020-08-14] MEDS: Vancomycin 1 GM in NS 275 ML IVPB SCH (08:33)
[2020-08-14] MEDS: Pantoprazole Inj IVP SCH (08:34)
[2020-08-14] MEDS: 1/2NS w/KCl 20mEq 1000ml 1,000 ML IV SCH (08:34)
[2020-08-14] MEDS: levETIRAcetam 500mg/5ml Liquid GT SCH (08:35)
[2020-08-14] MEDS: Heparin 5000 units/ml inj SUBQ SCH (08:37)
[2020-08-14] MEDS: Spironolactone 25mg tab GT SCH (08:38)
[2020-08-14] MEDS: Dakin's 0.125% Soln (Quarter Strength) 16oz TOPIC SCH (08:38)
--- NOTE | 2020-08-14 09:05 | Nephrology Progress Note ---
Assessment/Plan Problem List: (1) Electrolyte imbalance (2) Sepsis (3) UTI (urinary tract infection) (4) Dehydration (5) Anemia (6) Hyperglycemia (7) Seizure disorder Assessment Patient is admitted with sepsis, leukocytosis, hypoxia Patient has evidence of UTI Electrolyte imbalances, hypokalemia Hypotension, blood pressure hovering 90 systolic Anemia Hyperglycemia Seizure disorder Plan August 14: Labs reviewed. Renal parameters stable. Continue per consultants. 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 Patient stable from a renal standpoint of view. August 12: Labs reviewed. Renal parameters stable. Remains full code. Continue per consultants. August 11: Labs reviewed. Renal parameters stable. Continue per consultants. Remains full code. August 10: Labs reviewed. Renal parameters stable. Continue her current management. August 09: Labs reviewed. Renal parameters and electrolytes stable. Continue per consultants. August 08: Labs reviewed. Renal parameters electrolytes stable. Continue to monitor electrolytes. Continue per consultants. August 07: No CHEM panel drawn today. K-Phos given. Medication list reviewed. Check labs tomorrow. Continue per consultants. IV changed to half-normal saline Start Midodrin Potassium supplement Monitor renal parameters Anemia work-up Per orders Subjective ROS Limited/Unobtainable: No Constitutional: Reports: malaise, weakness Objective Objective Last 24 Hour Vital Signs Date Time Temp Pulse Resp B/P (MAP) Pulse Ox O2 Delivery O2 Flow Rate FiO2 08/14/20 08:35 86 120/78 08/14/20 04:00 88 08/14/20 04:00 97.9 84 20 121/66 (84) 98 08/14/20 04:00 Room Air 08/14/20 00:00 98.2 98 20 101/66 (78) 98 08/14/20 00:00 Room Air 08/14/20 00:00 82 08/13/20 20:45 90 119/80 08/13/20 20:00 Room Air 08/13/20 20:00 91 08/13/20 20:00 97.5 93 20 122/71 (88) 97 08/13/20 19:52 98 Room Air 08/13/20 16:00 89 08/13/20 16:00 98.0 71 18 128/62 (84) 98 08/13/20 16:00 Room Air 08/13/20 12:00 97.5 79 20 130/67 (88) 99 08/13/20 12:00 Room Air 08/13/20 11:46 83 08/13/20 09:24 89 121/68 Intake and Output 08/13/20 08/14/20 19:00 07:00 Intake Total 425 ml 2053.316 ml Output Total 2000 ml 2000 ml Balance -1575 ml 53.316 ml Intake Free Water 100 ml IV Total 75 ml 1503.316 ml Tube Feeding 250 ml 550 ml Output Urine Total 2000 ml 2000 ml Current Medications Medications (Trade) Dose Ordered Sig/Alvarado Route PRN Reason Start Time Stop Time Status Last Admin Dose Admin Acetaminophen (Tylenol) 650 mg Q4H PRN GT Mild Pain (Pain Scale 1-3) 08/05/20 11:30 09/04/20 11:29 Acetaminophen (Tylenol) 650 mg Q4H PRN GT TEMP > 100.5 08/05/20 11:45 09/04/20 11:44 08/12/20 00:05 Carvedilol (Coreg) 3.125 mg EVERY 12 HOURS GT 08/14/20 09:00 09/13/20 08:59 08/14/20 08:35 Dextrose (Dextrose 50%) 25 ml Q30M PRN IV Hypoglycemia 08/06/20 12:00 11/04/20 11:59 Dextrose (Dextrose 50%) 50 ml Q30M PRN IV Hypoglycemia 08/06/20 12:00 11/04/20 11:59 Heparin Sodium (Porcine) (Heparin 5000 units/ml) 5,000 units EVERY 12 HOURS SUBQ 08/05/20 21:00 09/19/20 20:59 08/14/20 08:37 Insulin Aspart (NovoLOG) Q6HR SUBQ 08/06/20 18:00 11/04/20 17:59 Levetiracetam (Keppra) 500 mg Q12HR GT 08/05/20 21:00 09/04/20 20:59 08/14/20 08:35 Midodrine (Pro-Amatine) 10 mg Q8HR ORAL 08/06/20 14:00 11/04/20 13:59 08/13/20 22:09 Pantoprazole (Protonix) 40 mg Q12HR IVP 08/06/20 21:00 09/05/20 08:59 08/14/20 08:34 Piperacillin Sod/ Tazobactam Sod 3.375 gm/Sodium Chloride 110 ml @ 27.5 mls/hr EVERY 8 HOURS IVPB 08/10/20 11:30 08/15/20 11:29 08/14/20 05:05 Polyethylene Glycol (Miralax) 17 gm DAILY PRN GT Constipation 08/14/20 06:30 09/13/20 06:29 Sodium 1,000 ml @ 75 mls/hr [id number] IV 08/06/20 14:00 09/05/20 13:59 08/14/20 08:34 Sodium Hypochlorite (Dakin's Quarter Strength) 1 applic DAILY TOPIC 08/06/20 09:00 09/05/20 08:59 08/14/20 08:38 Spironolactone (Aldactone) 25 mg DAILY GT 08/09/20 09:00 09/08/20 08:59 08/14/20 08:38 Vancomycin HCl ([facility] pharmacy to dose) 1 ea DAILY PRN MISC . 08/05/20 14:00 09/04/20 13:59 Vancomycin HCl 1 gm/Sodium Chloride 275 ml @ 183.708 mls/hr Q12H IVPB 08/10/20 20:00 08/15/20 19:59 08/14/20 08:33 Laboratory Tests 08/13/20 12:21: POC Whole Blood Glucose 94 08/13/20 17:20: POC Whole Blood Glucose 93 08/13/20 18:30: Vancomycin Level Trough 18.1H 08/14/20 03:50: White Blood Count 10.9H, Red Blood Count 2.84L, Hemoglobin 8.1L, Hematocrit 25.3L, Mean Corpuscular Volume 89, Mean Corpuscular Hemoglobin 28.4, Mean Cor puscular Hemoglobin Concent 31.8L, Red Cell Distribution Width 16.8H, Platelet Count 424, Mean Platelet Volume 7.1, Neutrophils (%) (Auto) 78.2H, Lymphocytes (%) (Auto) 9.5L, Monocytes (%) (Auto) 8.7, Eosinophils (%) (Auto) 1.3, Basophils (%) (Auto) 2.3H, Sodium Level 137, Potassium Level 4.6, Chloride Level 103, Carbon Dioxide Level 25, Anion Gap 9, Blood Urea Nitrogen 14, Creatinine 0.4L, Estimat Glomerular Filtration Rate > 60, Glucose Level 109H, Calcium Level 8.9, Iron Level 40L, Total Iron Binding Capacity 243L, Percent Iron Saturation 16, Unsaturated Iron Binding 203, Ferritin 223 Height (Feet): 5 Height (Inches): 2.00 Weight (Pounds): 85 General Appearance: no apparent distress Cardiovascular: normal rate Respiratory/Chest: decreased breath sounds Abdomen: soft Gabriele Honeycutt MD Aug 14, 2020 09:05
--- NOTE | 2020-08-14 10:50 | NUR ---
NURSE NOTES: Initial assessment done. Morning medications administered per order. VSS. Tolerating room air with O2 sat 98%. Pt is not in acute distress. Oral care done. Pt is turned and repositioned. Will continue to closely monitor pt.
[2020-08-14 12:00] VITALS: BP 119/62
--- NOTE | 2020-08-14 13:47 | NUR ---
CASE MANAGEMENT:REVIEW 08/14/20 SI: PNA. UTI 97.9 85 18 119/62 98% ON RA WBC+10.9 H/H-8.1.3 IS: IV VANCOMYCIN Q12 IV ZOSYN Q8HRS IVF@75/HR ALDACTONE GT QD COREG GT Q12 IV PROTONIX Q12 MIDODRINE PO Q8HRS KEPPRA GT Q12 HEPARIN SQ Q12 :STEP DOWN UNIT DCP: FROM [facility]
--- NOTE | 2020-08-14 15:56 | NUR ---
CASE MANAGEMENT NOTES PT ACCEPTED BACK TO [facility] ROOM [address] [facility] TO TRANSPORT PT WITH AN ETA OF 1700. NURSE MADE AWARE. [facility] [phone]
--- NOTE | 2020-08-14 16:50 | NUR ---
NURSE NOTES: Gave report to DURAN Gamino in [facility]. Endorsed plan of care. Stable vital signs. Not in acute distress. Tolerating room air. Wounds cleaned and dressing changed. G-tube is intact and patent. Gallardo catheter is intact and patent. Endorsed antibiotics to be continued: Zosyn until 08/15, and Linezolid 600mg PO BID end date 08/18. Pt has no belongings, on hospital gown. Care and medication packet will be sent with the pt.
--- NOTE | 2020-08-14 17:23 | NUR ---
NURSE NOTES: Report given to [facility] ambulance personnel. Pt is stable, tolerating room air saturating 100%. Vital signs are stable : BP 123/87, HR 81, O2 saturation 99-100%. G-Tube is intact and patent. Gallardo Catheter is intact and patent. IV in R wrist and L wrist are intact and patent. Endorsed plan of care.
[2020-08-14] MEDS ORDERED: NS 275ml ONE (17:24)
== END 2020-08-14 17:25 | DRG 871 ==
LOC: EDBD 07:23 → EMR 07:49 → ICU 07:55 → EDBEDREQ 08:12 → 2W 08-07 09:00
DX: A41.9 Sepsis, unspecified organism (principal); L89.154 Pressure ulcer of sacral region, stage 4; E43 Unspecified severe protein-calorie malnutrition; J96.01 Acute respiratory failure with hypoxia; J69.0 Pneumonitis due to inhalation of food and vomit; Z68.1 Body mass index [BMI] 19.9 or less, adult; D68.59 Other primary thrombophilia; N39.0 Urinary tract infection, site not specified; L89.620 Pressure ulcer of left heel, unstageable; L89.610 Pressure ulcer of right heel, unstageable; Z93.1 Gastrostomy status; R13.10 Dysphagia, unspecified; E78.5 Hyperlipidemia, unspecified; F29 Unspecified psychosis not due to a substance or known physiological condition; G40.909 Epilepsy, unspecified, not intractable, without status epilepticus; Z86.16 Personal history of COVID-19; I69.920 Aphasia following unspecified cerebrovascular disease; B96.20 Unspecified Escherichia coli [E. coli] as the cause of diseases classified elsewhere; R00.0 Tachycardia, unspecified; D64.9 Anemia, unspecified; D72.810 Lymphocytopenia; I11.0 Hypertensive heart disease with heart failure; I50.9 Heart failure, unspecified; F03.90 Unspecified dementia, unspecified severity, without behavioral disturbance, psychotic disturbance, mood disturbance, and anxiety; E87.6 Hypokalemia; I95.9 Hypotension, unspecified; R73.9 Hyperglycemia, unspecified; E86.0 Dehydration
CPT/HCPCS: 36415; 71045; 80048; 80053; 80202; 81003; 82150; 82550; 82553; 82607; 82728; 82746; 82803; 82962; 83036; 83540; 83550; 83605; 83615; 83690; 83735; 83880; 84100; 84134; 84484; 84550; 85007; 85025; 85379; 85610; 85651; 85730; 86140; 87040; 87070; 87081; 87086; 87181; 87205; 93005; 93970; 94660; 96361; 96365; 96367; 96375; 99285; J1815; J7030; J8499